=== PATIENT | male | born 1960 | race American Indian/Alaskan Native ===

== ENCOUNTER 2017-05-14 09:37 | Emergency (ER) | payer SELFPAY ==
[2017-05-14 09:55] VITALS: BP 121/88
[2017-05-14] MEDS ORDERED: MOTRIN PO ONE (09:58)
[2017-05-14] MEDS ORDERED: MOTRIN ONE (10:00)
[2017-05-14] MEDS ORDERED: PERCOCET 5/325 PO ONE (11:23)
[2017-05-14] MEDS ORDERED: DECADRON INTRAOCULA ONE (11:23)
--- NOTE | 2017-05-14 11:23 | Emergency Department Report ---
ED Extremity Problem HPI - General Chief complaint: Extremity Problem,Nontraumatic Stated complaint: LEGS AND FEET SWOLLEN,PAIN Time Seen by Provider: 05/14/17 10:18 Source: patient, family Mode of arrival: Wheelchair Limitations: No Limitations - History of Present Illness Initial comments: Patient he reported that he is having joint pain and swelling to both his feet and his right elbow is also complaining of lower back pain 2-3 months. Patient said he has a history of gout flare fo 1 week. All pain to is 10 out of 10 and achy and throbbing. He took [id number] pain medication but it didn't help him. Denies any redness or swelling to extremities. Denies any fever or chills. Denies any nausea or vomiting. Patient records reflect that he was on allopurinol in the past but he said he is not taking that medication at present. He denies any injuries. Patient said he has had previous back injury and he gets back pain from time to time. MD Complaint: extremity pain, joint swelling, joint paint Onset/Timin -: week(s) Location: upper extremity, bilateral lower extremity, elbow (right upper extremity at right elbow) History of Same: Yes -: No myalgia, Yes arthralgia, No associated dyspnea, No associated chest pain Severity scale (0 -10): 10 Quality: aching Consistency: intermittent Improves with: immobilization, rest Worsens with: weight bearing, walking, exertion, palpation Associated Symptoms: arthralgias. denies: chest pain, shortness of breath, fever, myalgias, rash - Related Data Previous Rx's Medication Instructions Recorded Last Taken Type Hydrocodone Bit/Acetaminophen 1 each PO BID PRN #20 tablet 05/05/13 Unknown Rx [Lortab 7.5-500 mg] Prednisone 40 mg PO QDAY #10 tablet 05/05/13 Unknown Rx Cyclobenzaprine HCl [FLEXERIL] 10 mg PO TID #12 tablet 07/07/13 Unknown Rx Cephalexin [Keflex] 500 mg PO Q8H #21 capsule 12/14/13 Unknown Rx Sulfamethoxazole/Trimethoprim 1 each PO Q12H #14 tablet 12/14/13 Unknown Rx [Bactrim Ds] oxyCODONE /ACETAMINOPHEN [Percocet 1 tab PO Q4-6H PRN #20 tablet 12/14/13 Unknown Rx 5/325 mg] Allopurinol [Zyloprim] 100 mg PO QDAY #30 tablet 02/25/14 Unknown Rx HYDROcodone/APAP 7.5-325 [[place] 1 each PO Q6HR PRN #20 tablet 04/29/14 Unknown Rx 7.5/325 mg] Indomethacin 50 mg PO Q8H #90 capsule 04/29/14 Unknown Rx Cyclobenzaprine [Flexeril] 10 mg PO TID PRN #30 tablet 08/02/15 Unknown Rx Meloxicam [Mobic] 15 mg PO DAILY #30 tablet 09/12/15 Unknown Rx traMADol [Ultram 50 MG tab] 50 mg PO Q4HR PRN #20 tablet 09/12/15 Unknown Rx Acetaminophen/Codeine [Tylenol 1 tab PO Q6H PRN #20 tab 10/16/15 Unknown Rx /Codeine # 3 tab] HYDROcodone/APAP 10-325 [[place] 1 each PO Q6HR PRN #14 tablet 05/14/17 Unknown Rx 10-325 mg TAB] Ibuprofen [Motrin 800 MG tab] 800 mg PO Q8HR PRN #15 tablet 05/14/17 Unknown Rx methylPREDNISolone [Medrol Dose 4 mg PO DAILY 6 Days 05/14/17 Unknown Rx Andrea] Allergies Allergy/AdvReac Type Severity Reaction Status Date / Time No Known Allergies Allergy Verified 09/12/15 15:42 ED Review of Systems ROS: Stated complaint: LEGS AND FEET SWOLLEN,PAIN Other details as noted in HPI Comment: All other systems reviewed and negative Constitutional: no symptoms reported Respiratory: no symptoms reported Cardiovascular: denies: chest pain, palpitations, dyspnea on exertion, edema, syncope, paroxysmal nocturnal dyspnea Gastrointestinal: denies: abdominal pain, nausea, vomiting Genitourinary: denies: urgency, dysuria, frequency, hematuria, discharge, testicular pain, testicular mass Musculoskeletal: back pain, joint swelling, arthralgia. denies: myalgia Skin: denies: rash, lesions Neurological: abnormal gait (due to lower back pain and pain is both feet). denies: headache, weakness, numbness, paresthesias, confusion, vertigo ED Past Medical Hx - Past Medical History Previous Medical History?: Yes Hx Arthritis: Yes (gout) Hx Headaches / Migraines: Yes Additional medical history: gout. OBESITY - Surgical History Past Surgical History?: No - Family History Family history: hypertension - Social History Smoking Status: Current Every Day Smoker Substance Use Type: None - Medications Home Medications: Home Medications Medication Instructions Recorded Confirmed Last Taken Type Hydrocodone Bit/Acetaminophen 1 each PO BID PRN #20 tablet 05/05/13 Unknown Rx [Lortab 7.5-500 mg] Prednisone 40 mg PO QDAY #10 tablet 05/05/13 Unknown Rx Cyclobenzaprine HCl [FLEXERIL] 10 mg PO TID #12 tablet 07/07/13 Unknown Rx Cephalexin [Keflex] 500 mg PO Q8H #21 capsule 12/14/13 Unknown Rx Sulfamethoxazole/Trimethoprim 1 each PO Q12H #14 tablet 12/14/13 Unknown Rx [Bactrim Ds] oxyCODONE /ACETAMINOPHEN [Percocet 1 tab PO Q4-6H PRN #20 tablet 12/14/13 Unknown Rx 5/325 mg] Allopurinol [Zyloprim] 100 mg PO QDAY #30 tablet 02/25/14 Unknown Rx HYDROcodone/APAP 7.5-325 [[place] 1 each PO Q6HR PRN #20 tablet 04/29/14 Unknown Rx 7.5/325 mg] Indomethacin 50 mg PO Q8H #90 capsule 04/29/14 Unknown Rx Cyclobenzaprine [Flexeril] 10 mg PO TID PRN #30 tablet 08/02/15 Unknown Rx Meloxicam [Mobic] 15 mg PO DAILY #30 tablet 09/12/15 Unknown Rx traMADol [Ultram 50 MG tab] 50 mg PO Q4HR PRN #20 tablet 09/12/15 Unknown Rx Acetaminophen/Codeine [Tylenol 1 tab PO Q6H PRN #20 tab 10/16/15 Unknown Rx /Codeine # 3 tab] HYDROcodone/APAP 10-325 [[place] 1 each PO Q6HR PRN #14 tablet 05/14/17 Unknown Rx 10-325 mg TAB] Ibuprofen [Motrin 800 MG tab] 800 mg PO Q8HR PRN #15 tablet 05/14/17 Unknown Rx methylPREDNISolone [Medrol Dose 4 mg PO DAILY 6 Days 05/14/17 Unknown Rx Andrea] ED Physical Exam - General Limitations: No Limitations General appearance: alert, in no apparent distress - Head Head exam: Present: atraumatic, normocephalic, normal inspection - Eye Eye exam: Present: normal appearance, PERRL, EOMI Pupils: Present: normal accommodation - ENT ENT exam: Present: normal exam, normal orophraynx, mucous membranes moist - Neck Neck exam: Present: normal inspection, lymphadenopathy. Absent: tenderness, meningismus, full ROM - Respiratory Respiratory exam: Present: normal lung sounds bilaterally. Absent: respiratory distress, wheezes, chest wall tenderness, accessory muscle use - Cardiovascular Cardiovascular Exam: Present: regular rate, normal rhythm, normal heart sounds. Absent: systolic murmur, diastolic murmur - GI/Abdominal GI/Abdominal exam: Present: soft, normal bowel sounds. Absent: distended, tenderness, guarding, rebound, rigid - Extremities Exam Extremities exam: Present: normal inspection, full ROM, tenderness (both feet with mild swelling and right elbow without any swelling), normal capillary refill, other (no clubbing, cyanosis. Positive swelling to both feet along great toe. Temperature to both feet and right elbow increase. No neurovascular compromise. +2 pulses to all extremities.). Absent: pedal edema , calf tenderness - Back Exam Back exam: Present: normal inspection, full ROM. Absent: tenderness, CVA tenderness (R), CVA tenderness (L), muscle spasm, paraspinal tenderness, vertebral tenderness, rash noted - Expanded Back Exam Expanded Back exam: Absent: saddle anesthesia Back exam: Negative Straight Leg Raising: Left, Right - Neurological Exam Neurological exam: Present: alert, oriented X3, abnormal gait (abnormal gait to bilateral lower extremity due to pain from gout. Patient able to ambulate in the room but he is limping), motor sensory deficit (decrease motor of function to both feet due to increased pain from gout. She would normal sensation in all extremities), reflexes normal - Expanded Neurological Exam Expanded Neurological exam: Absent: innattentive, memory loss-remote event, memory loss- recent event, ataxia, receptive aphasia, expressive aphasia, total aphasia, tremor, protecting the airway Patient oriented to: Present: person, place, time Speech: Present: fluid speech Cranial nerves: EOM's Intact: Normal, Gag Reflex: Normal, Tongue Deviation: Normal, Nystagmus: Normal, Facial Sensation: Normal Cerebellar function: Romberg: Normal Upper motor neuron: Pronator Drift: Normal, Sensory Extinction: Normal Sensory exam: Upper Extremity Light Touch: Normal, Upper Extremity Temperature: Normal, UE 2 Point Discrimination: Normal, Lower Extremity Light Touch: Normal, Lower Extremity Temperature: Normal, LE 2 Point Discrimination: Normal Motor strength exam: RUE: 5, LUE: 5, RLE: 4, LLE: 4 DTR: bicep (R): 2+, bicep (L): 2+, tricep (R): 2+, tricep (L): 2+, knee (R): 2+ , knee (L): 2+, ankle (R): 2+, ankle (L): 2+ Best Eye Response ([place]): (4) open spontaneously Best Motor Response ([place]): (6) obeys commands Best Verbal Response ([place]): (5) oriented Ashlee Total: 15 - Psychiatric Psychiatric exam: Present: normal affect, normal mood - Skin Skin exam: Present: warm, dry, intact, normal color. Absent: rash ED Course Vital Signs 05/14/17 09:52 Temperature 97.9 F Pulse Rate 99 H Respiratory 20 Rate Blood Pressure 121/88 O2 Sat by Pulse 97 Oximetry - Reevaluation(s) Reevaluation #1: 05/14/17 12:34 Given Motrin 800 mg by mouth in triage area which did not relieve his pain, he was given Decadron 10 mg IM and said 5/325 mg 2 tablet by mouth in emergency room 05/14/17 12:34 ED Medical Decision Making - Medical Decision Making ED course: Patient with acute gouty arthritis flare in multiple joints. He is also with acute exacerbation of chronic back pain. Patient was treated with Motrin 800 mg by mouth in triage,Decadron 10 mg IM and Percocet 5/325 2 tablets by mouth in emergency room. He had relief of his pain. Patient said he does not have a primary care physician so I informed him that he will need to follow up at [facility] for management of his chronic medical problems to include gout, arthritis, migraine. He's been here several times for management of pain. Discharged home a prescription for [place], Motrin and prednisone. He voiced undescended discharge instruction and treatment plan. Critical care attestation.: If time is entered above; I have spent that time in minutes in the direct care of this critically ill patient, excluding procedure time. ED Disposition Clinical Impression: Acute exacerbation of chronic low back pain, Arthralgia of multiple sites Gout of multiple sites Qualifiers: Gout etiology: unspecified cause Chronicity: unspecified Qualified Code(s): M10.9 - Gout, unspecified Disposition: DC-01 TO HOME OR SELFCARE Is pt being admited?: No Does the pt Need Aspirin: No Condition: Stable Instructions: Acute Gouty Arthritis (ED), Arthralgia (ED), Low Purine Diet (ED) Additional Instructions: Please follow up at [facility] for management of chronic medical problems Please follow up with Dr. Sheppard orthopedic, for chronic back pain Do not drive or operate heavy machinery while taking [place] as this medication will make you drowsy. Prescriptions: HYDROcodone/APAP 10-325 [[place] 10-325 mg TAB] 1 each PO Q6HR PRN #14 tablet PRN Reason: Pain Ibuprofen [Motrin 800 MG tab] 800 mg PO Q8HR PRN #15 tablet PRN Reason: pain methylPREDNISolone [Medrol Dose Andrea] 4 mg PO DAILY 6 Days Referrals: RODNEY SHEPPARD MD [Staff Physician] - 3-5 Days [facility] [place] [Outside] - 05/18/17 Forms: Work/School Release Form(ED), Accompanied Note
== END 2017-05-14 13:01 | disposition home or self-care (01) ==
LOC: ED 09:37
DX: M10.9 Gout, unspecified (principal); G89.29 Other chronic pain; M54.5 Low back pain; M19.90 Unspecified osteoarthritis, unspecified site; G43.909 Migraine, unspecified, not intractable, without status migrainosus; F17.210 Nicotine dependence, cigarettes, uncomplicated
CPT/HCPCS: 99282; J1100

== ENCOUNTER 2017-07-29 09:46 | Emergency (ER) | payer SELFPAY ==
[2017-07-29 11:20] VITALS: BP 144/81
[2017-07-29] MEDS ORDERED: ULTRAM PO ONE (14:54)
[2017-07-29] MEDS ORDERED: DELTASONE PO ONE (14:54)
--- NOTE | 2017-07-29 15:26 | Emergency Department Report ---
ED General Adult HPI - General Chief complaint: Extremity Injury, Lower Stated complaint: GOUT Time Seen by Provider: 07/29/17 14:37 Source: patient Mode of arrival: Ambulatory Limitations: No Limitations - History of Present Illness Initial comments: Patient a 56-year-old -[place] male who presents for gout exacerbation to bilateral great toes and left index finger patient states gout usually controlled by ibuprofen however he is out of ibuprofen for the past 2 weeks patient states no longer has a PCP as he can't afford patient denies fevers chills no nausea no vomiting no open sores or lesions no ulcers no history of diabetes patient remains ambulatory but with pain. Onset/Timin -: week(s) Location: upper extremity, lower extremity Radiation: non-radiation Severity scale (0 -10): 10 Quality: aching Consistency: constant Improves with: none Worsens with: movement, other (weight bearing ) Associated Symptoms: denies other symptoms Treatments Prior to Arrival: none - Related Data Previous Rx's Medication Instructions Recorded Last Taken Type Hydrocodone Bit/Acetaminophen 1 each PO BID PRN #20 tablet 05/05/13 Unknown Rx [Lortab 7.5-500 mg] Prednisone 40 mg PO QDAY #10 tablet 05/05/13 Unknown Rx Cyclobenzaprine HCl [FLEXERIL] 10 mg PO TID #12 tablet 07/07/13 Unknown Rx Cephalexin [Keflex] 500 mg PO Q8H #21 capsule 12/14/13 Unknown Rx Sulfamethoxazole/Trimethoprim 1 each PO Q12H #14 tablet 12/14/13 Unknown Rx [Bactrim Ds] oxyCODONE /ACETAMINOPHEN [Percocet 1 tab PO Q4-6H PRN #20 tablet 12/14/13 Unknown Rx 5/325 mg] Allopurinol [Zyloprim] 100 mg PO QDAY #30 tablet 02/25/14 Unknown Rx HYDROcodone/APAP 7.5-325 [[place] 1 each PO Q6HR PRN #20 tablet 04/29/14 Unknown Rx 7.5/325 mg] Indomethacin 50 mg PO Q8H #90 capsule 04/29/14 Unknown Rx Cyclobenzaprine [Flexeril] 10 mg PO TID PRN #30 tablet 08/02/15 Unknown Rx Meloxicam [Mobic] 15 mg PO DAILY #30 tablet 09/12/15 Unknown Rx traMADol [Ultram 50 MG tab] 50 mg PO Q4HR PRN #20 tablet 09/12/15 Unknown Rx Acetaminophen/Codeine [Tylenol 1 tab PO Q6H PRN #20 tab 10/16/15 Unknown Rx /Codeine # 3 tab] HYDROcodone/APAP 10-325 [[place] 1 each PO Q6HR PRN #14 tablet 05/14/17 Unknown Rx 10-325 mg TAB] Ibuprofen [Motrin 800 MG tab] 800 mg PO Q8HR PRN #15 tablet 05/14/17 Unknown Rx methylPREDNISolone [Medrol Dose 4 mg PO DAILY 6 Days tab 05/14/17 Unknown Rx Andrea] Ibuprofen 800 mg PO TID PRN #60 tablet 07/29/17 Unknown Rx predniSONE [Deltasone] 40 mg PO QDAY #10 tab 07/29/17 Unknown Rx Allergies Allergy/AdvReac Type Severity Reaction Status Date / Time No Known Allergies Allergy Verified 09/12/15 15:42 ED Review of Systems ROS: Stated complaint: GOUT Other details as noted in HPI Constitutional: denies: chills, fever Eyes: denies: eye pain, eye discharge, vision change ENT: denies: ear pain, throat pain Respiratory: denies: cough, shortness of breath, wheezing Cardiovascular: denies: chest pain, palpitations Endocrine: no symptoms reported Gastrointestinal: denies: abdominal pain, nausea, diarrhea Genitourinary: as per HPI Musculoskeletal: joint swelling, arthralgia. denies: back pain, myalgia Skin: denies: rash, lesions Neurological: denies: headache, weakness, paresthesias Psychiatric: denies: anxiety, depression Hematological/Lymphatic: denies: easy bleeding, easy bruising ED Past Medical Hx - Past Medical History Previous Medical History?: Yes Hx Arthritis: Yes (gout) Hx Headaches / Migraines: Yes Additional medical history: gout. OBESITY - Surgical History Past Surgical History?: No - Social History Smoking Status: Never Smoker Substance Use Type: Non Opiate Pain - Medications Home Medications: Home Medications Medication Instructions Recorded Confirmed Last Taken Type Hydrocodone Bit/Acetaminophen 1 each PO BID PRN #20 tablet 05/05/13 Unknown Rx [Lortab 7.5-500 mg] Prednisone 40 mg PO QDAY #10 tablet 05/05/13 Unknown Rx Cyclobenzaprine HCl [FLEXERIL] 10 mg PO TID #12 tablet 07/07/13 Unknown Rx Cephalexin [Keflex] 500 mg PO Q8H #21 capsule 12/14/13 Unknown Rx Sulfamethoxazole/Trimethoprim 1 each PO Q12H #14 tablet 12/14/13 Unknown Rx [Bactrim Ds] oxyCODONE /ACETAMINOPHEN [Percocet 1 tab PO Q4-6H PRN #20 tablet 12/14/13 Unknown Rx 5/325 mg] Allopurinol [Zyloprim] 100 mg PO QDAY #30 tablet 02/25/14 Unknown Rx HYDROcodone/APAP 7.5-325 [[place] 1 each PO Q6HR PRN #20 tablet 04/29/14 Unknown Rx 7.5/325 mg] Indomethacin 50 mg PO Q8H #90 capsule 04/29/14 Unknown Rx Cyclobenzaprine [Flexeril] 10 mg PO TID PRN #30 tablet 08/02/15 Unknown Rx Meloxicam [Mobic] 15 mg PO DAILY #30 tablet 09/12/15 Unknown Rx traMADol [Ultram 50 MG tab] 50 mg PO Q4HR PRN #20 tablet 09/12/15 Unknown Rx Acetaminophen/Codeine [Tylenol 1 tab PO Q6H PRN #20 tab 10/16/15 Unknown Rx /Codeine # 3 tab] HYDROcodone/APAP 10-325 [[place] 1 each PO Q6HR PRN #14 tablet 05/14/17 Unknown Rx 10-325 mg TAB] Ibuprofen [Motrin 800 MG tab] 800 mg PO Q8HR PRN #15 tablet 05/14/17 Unknown Rx methylPREDNISolone [Medrol Dose 4 mg PO DAILY 6 Days tab 05/14/17 Unknown Rx Andrea] Ibuprofen 800 mg PO TID PRN #60 tablet 07/29/17 Unknown Rx predniSONE [Deltasone] 40 mg PO QDAY #10 tab 07/29/17 Unknown Rx ED Physical Exam - General Limitations: No Limitations General appearance: alert, in no apparent distress - Head Head exam: Present: atraumatic, normocephalic - Eye Eye exam: Present: normal appearance, PERRL, EOMI Pupils: Present: normal accommodation - ENT ENT exam: Present: mucous membranes moist - Neck Neck exam: Present: normal inspection, full ROM. Absent: lymphadenopathy, thyromegaly - Respiratory Respiratory exam: Present: normal lung sounds bilaterally. Absent: respiratory distress, wheezes, rhonchi, chest wall tenderness - Cardiovascular Cardiovascular Exam: Present: regular rate, normal rhythm. Absent: systolic murmur, diastolic murmur, rubs, gallop - GI/Abdominal GI/Abdominal exam: Present: soft, normal bowel sounds. Absent: distended, tenderness, guarding, rebound, rigid, mass, bruit, pulsatile mass, hernia - Rectal Rectal exam: Present: deferred - Extremities Exam Extremities exam: Present: normal inspection, full ROM, tenderness (generalized great toe and left index finger pain ), normal capillary refill. Absent: pedal edema, joint swelling, calf tenderness - Expanded Upper Extremity Exam Left Hand Wrist exam: Present: normal inspection, full ROM, tenderness (left index finger 1st joint pain and swelling ), swelling, erythema. Absent: abrasion, laceration, ecchymosis, deformity, crepidus, dislocation, amputation, nail avulsion, subungual hematoma Neuro motor exam: Present: wrist extension intact, thumb opposition intact, thumb IP flexion intact, thumb adduction intact, fingers 2-5 abduction intact Neurosensory exam: Present: 2-point discrimination, radial nerve intact, ulnar nerve intact, median nerve intact Vascular: Present: normal capillary refill, radial pulse, brachial pulse, ulnar pulse. Absent: vascular compromise, Pallo, pulse deficit radial art, pulse deficit ulnar art, pulse deficit brachial art - Expanded Lower Extremity Exam Left Foot/Toe exam: Present: full ROM, tenderness, swelling, erythema (generalized pain swelling to great toe ). Absent: abrasion, laceration, ecchymosis, deformity, crepidus, dislocation, amputation, puncture wound, foreign body, calcaneal tenderness, tenderness at base of 5th metatarsal, nail avulsion, subungual hematoma Neuro vascular tendon exam: Present: no vascular compromise. Absent: pulse deficit, abnormal cap refill, motor deficit, tendon deficit, extremity cold to touch, pallor, abnormal 2-point discrimination, decreased fine/light touch, foot drop, peroneal nerve deficit, significant pain with passive ROM of distal joint Gait: Negative: observed and normal Right Foot/Toe exam: Present: full ROM, tenderness (right great toe pain and erythema swelling ), swelling, erythema. Absent: abrasion, laceration, ecchymosis, deformity, crepidus, dislocation, amputation, puncture wound, foreign body, calcaneal tenderness, tenderness at base of 5th metatarsal, nail avulsion, subungual hematoma Neuro vascular tendon exam: Present: motor deficit. Absent: no vascular compromise, pulse deficit, abnormal cap refill, sensory deficit, tendon deficit , extremity cold to touch, pallor, abnormal 2-point discrimination, decreased fine/light touch, foot drop, peroneal nerve deficit, significant pain with passive ROM of distal joint Gait: Negative: observed and normal - Back Exam Back exam: Present: normal inspection, full ROM. Absent: tenderness, CVA tenderness (R), CVA tenderness (L), muscle spasm, paraspinal tenderness, vertebral tenderness, rash noted ED Course Vital Signs 07/29/17 11:17 Temperature 98.2 F Pulse Rate 89 Respiratory 16 Rate Blood Pressure 144/81 O2 Sat by Pulse 95 Oximetry ED Medical Decision Making - Medical Decision Making Patient a 56-year-old -[place] male who presents for gout exacerbation to bilateral great toes and left index finger patient states gout usually controlled by ibuprofen however he is out of ibuprofen for the past 2 weeks patient states no longer has a PCP as he can't afford patient denies fevers chills no nausea no vomiting no open sores or lesions no ulcers no history of diabetes patient remains ambulatory but with pain. exam left index finger pain swelling erythema , bilat great toe pain swelling erythema warm to touch no open lesion pt is ambulatory gait is steady, pain is improved with steriods and nsaids. pain decreased to 2/10 at this time plan: dc to home instable condition with prednisone, ibuprofen pt will follow up with [facility] in 2-3 days. pt verbalized agreement and understanding of same. Critical care attestation.: If time is entered above; I have spent that time in minutes in the direct care of this critically ill patient, excluding procedure time. ED Disposition Clinical Impression: Gout attack Qualifiers: Gout site: foot Gout etiology: idiopathic Laterality: unspecified laterality Qualified Code(s): M10.079 - Idiopathic gout, unspecified ankle and foot Disposition: DC-01 TO HOME OR SELFCARE Is pt being admited?: No Does the pt Need Aspirin: No Condition: Good Instructions: Acute Gouty Arthritis (ED), Low Purine Diet (ED) Additional Instructions: follow up with [facility] in 2-3 days as directed Prescriptions: Ibuprofen 800 mg PO TID PRN #60 tablet PRN Reason: Pain , Severe (7-10) predniSONE [Deltasone] 40 mg PO QDAY #10 tab Referrals: PRIMARY CARE, [Referring] - 3-5 Days [facility] [Outside] - 3-[address] [facility] [place] [Outside] - 3-5 Days Forms: Work/School Release Form(ED) Time of Disposition: 15:45
== END 2017-07-29 15:58 | disposition home or self-care (01) ==
LOC: ED 09:46
DX: M10.9 Gout, unspecified (principal); M19.90 Unspecified osteoarthritis, unspecified site
CPT/HCPCS: 99282; J7512

== ENCOUNTER 2017-09-29 11:17 | Emergency (ER) | payer SELFPAY ==
[2017-09-29 11:25] VITALS: BP 145/90
[2017-09-29] MEDS ORDERED: MOTRIN PO ONE (12:55)
[2017-09-29] MEDS ORDERED: COLCRYS PO ONE (12:55)
[2017-09-29] MEDS ORDERED: ZOFRAN ODT PO ONE (12:55)
[2017-09-29] MEDS ORDERED: NORCO 7.5/325 PO ONE (12:55)
--- NOTE | 2017-09-29 13:00 | Emergency Department Report ---
ED Extremity Problem HPI - General Chief complaint: Pain General Stated complaint: SWOLLEN ARM/KNEE/FOOT Time Seen by Provider: 09/29/17 12:51 Source: patient Mode of arrival: Ambulatory Limitations: No Limitations - History of Present Illness Initial comments: Patient is a 56-year-old -[place] male who is presenting with joint pain. Patient states he has a history of gout and currently has pain in his right knee and left wrist and elbow. Also in the bilateral great toes he is beginning to have some discomfort as well. Patient states he's been having off and on symptoms for approximately 2 weeks. Patient is no longer on any of his gout medications. Patient denies any fever he does have some mild nausea with one episode of vomiting. Patient denies any injury and his pain is consistent with prior gout flareups. Patient states the pain is 8 out of 10 in severity. - Related Data Previous Rx's Medication Instructions Recorded Last Taken Type Hydrocodone Bit/Acetaminophen 1 each PO BID PRN #20 tablet 05/05/13 Unknown Rx [Lortab 7.5-500 mg] Prednisone 40 mg PO QDAY #10 tablet 05/05/13 Unknown Rx Cyclobenzaprine HCl [FLEXERIL] 10 mg PO TID #12 tablet 07/07/13 Unknown Rx Cephalexin [Keflex] 500 mg PO Q8H #21 capsule 12/14/13 Unknown Rx Sulfamethoxazole/Trimethoprim 1 each PO Q12H #14 tablet 12/14/13 Unknown Rx [Bactrim Ds] oxyCODONE /ACETAMINOPHEN [Percocet 1 tab PO Q4-6H PRN #20 tablet 12/14/13 Unknown Rx 5/325 mg] Allopurinol [Zyloprim] 100 mg PO QDAY #30 tablet 02/25/14 Unknown Rx Cyclobenzaprine [Flexeril] 10 mg PO TID PRN #30 tablet 08/02/15 Unknown Rx Meloxicam [Mobic] 15 mg PO DAILY #30 tablet 09/12/15 Unknown Rx traMADol [Ultram 50 MG tab] 50 mg PO Q4HR PRN #20 tablet 09/12/15 Unknown Rx Acetaminophen/Codeine [Tylenol 1 tab PO Q6H PRN #20 tab 10/16/15 Unknown Rx /Codeine # 3 tab] HYDROcodone/APAP 10-325 [[place] 1 each PO Q6HR PRN #14 tablet 05/14/17 Unknown Rx 10-325 mg TAB] Ibuprofen [Motrin 800 MG tab] 800 mg PO Q8HR PRN #15 tablet 05/14/17 Unknown Rx methylPREDNISolone [Medrol Dose 4 mg PO DAILY 6 Days tab 05/14/17 Unknown Rx Andrea] Ibuprofen 800 mg PO TID PRN #60 tablet 07/29/17 Unknown Rx Colchicine 0.6 mg PO DAILY #14 capsule 09/29/17 Unknown Rx HYDROcodone/APAP 7.5-325 [[place] 1 each PO Q6HR PRN #14 tablet 09/29/17 Unknown Rx 7.5-325 mg TAB] Indomethacin 50 mg PO Q8H #30 capsule 09/29/17 Unknown Rx predniSONE [Deltasone] 40 mg PO QDAY #5 tab 09/29/17 Unknown Rx Allergies Allergy/AdvReac Type Severity Reaction Status Date / Time No Known Allergies Allergy Verified 09/29/17 11:22 ED Review of Systems ROS: Stated complaint: SWOLLEN ARM/KNEE/FOOT Other details as noted in HPI Comment: All other systems reviewed and negative ED Past Medical Hx - Past Medical History Hx Arthritis: Yes (gout) Hx Headaches / Migraines: Yes Additional medical history: gout. OBESITY - Social History Smoking Status: Never Smoker Substance Use Type: Marijuana - Medications Home Medications: Home Medications Medication Instructions Recorded Confirmed Last Taken Type Hydrocodone Bit/Acetaminophen 1 each PO BID PRN #20 tablet 05/05/13 Unknown Rx [Lortab 7.5-500 mg] Prednisone 40 mg PO QDAY #10 tablet 05/05/13 Unknown Rx Cyclobenzaprine HCl [FLEXERIL] 10 mg PO TID #12 tablet 07/07/13 Unknown Rx Cephalexin [Keflex] 500 mg PO Q8H #21 capsule 12/14/13 Unknown Rx Sulfamethoxazole/Trimethoprim 1 each PO Q12H #14 tablet 12/14/13 Unknown Rx [Bactrim Ds] oxyCODONE /ACETAMINOPHEN [Percocet 1 tab PO Q4-6H PRN #20 tablet 12/14/13 Unknown Rx 5/325 mg] Allopurinol [Zyloprim] 100 mg PO QDAY #30 tablet 02/25/14 Unknown Rx Cyclobenzaprine [Flexeril] 10 mg PO TID PRN #30 tablet 08/02/15 Unknown Rx Meloxicam [Mobic] 15 mg PO DAILY #30 tablet 09/12/15 Unknown Rx traMADol [Ultram 50 MG tab] 50 mg PO Q4HR PRN #20 tablet 09/12/15 Unknown Rx Acetaminophen/Codeine [Tylenol 1 tab PO Q6H PRN #20 tab 10/16/15 Unknown Rx /Codeine # 3 tab] HYDROcodone/APAP 10-325 [[place] 1 each PO Q6HR PRN #14 tablet 05/14/17 Unknown Rx 10-325 mg TAB] Ibuprofen [Motrin 800 MG tab] 800 mg PO Q8HR PRN #15 tablet 05/14/17 Unknown Rx methylPREDNISolone [Medrol Dose 4 mg PO DAILY 6 Days tab 05/14/17 Unknown Rx Andrea] Ibuprofen 800 mg PO TID PRN #60 tablet 07/29/17 Unknown Rx Colchicine 0.6 mg PO DAILY #14 capsule 09/29/17 Unknown Rx HYDROcodone/APAP 7.5-325 [[place] 1 each PO Q6HR PRN #14 tablet 09/29/17 Unknown Rx 7.5-325 mg TAB] Indomethacin 50 mg PO Q8H #30 capsule 09/29/17 Unknown Rx predniSONE [Deltasone] 40 mg PO QDAY #5 tab 09/29/17 Unknown Rx ED Physical Exam - General Limitations: No Limitations General appearance: alert, in no apparent distress - Head Head exam: Present: atraumatic, normocephalic - Eye Eye exam: Present: normal appearance - ENT ENT exam: Present: mucous membranes moist - Neck Neck exam: Present: normal inspection - Respiratory Respiratory exam: Present: normal lung sounds bilaterally. Absent: respiratory distress - Cardiovascular Cardiovascular Exam: Present: regular rate, normal rhythm. Absent: systolic murmur, diastolic murmur, rubs, gallop - GI/Abdominal GI/Abdominal exam: Present: soft, normal bowel sounds - Rectal Rectal exam: Present: deferred - Extremities Exam Extremities exam: Present: tenderness, joint swelling (joint swelling to the right knee left wrist and left elbow does have full range of motion is ample tour) - Back Exam Back exam: Present: normal inspection - Neurological Exam Neurological exam: Present: alert, oriented X3 - Psychiatric Psychiatric exam: Present: normal affect, normal mood - Skin Skin exam: Present: warm, dry, intact, normal color. Absent: rash ED Course Vital Signs 09/29/17 11:22 Temperature 98.2 F Pulse Rate 94 H Respiratory 20 Rate Blood Pressure 145/90 O2 Sat by Pulse 98 Oximetry ED Medical Decision Making - Medical Decision Making She'll be started on colchicine and be given pain meds. Critical care attestation.: If time is entered above; I have spent that time in minutes in the direct care of this critically ill patient, excluding procedure time. ED Disposition Clinical Impression: Gout attack Qualifiers: Gout site: unspecified site Gout etiology: unspecified cause Qualified Code(s) : M10.9 - Gout, unspecified Disposition: TO HOME OR SELFCARE Is pt being admited?: No Does the pt Need Aspirin: No Condition: Stable Instructions: Acute Gouty Arthritis (ED) Prescriptions: Colchicine 0.6 mg PO DAILY #14 capsule HYDROcodone/APAP 7.5-325 [[place] 7.5-325 mg TAB] 1 each PO Q6HR PRN #14 tablet PRN Reason: Pain Indomethacin 50 mg PO Q8H #30 capsule predniSONE [Deltasone] 40 mg PO QDAY #5 tab Referrals: RODNEY CALDERON MD [Staff Physician] - 3-5 Days
== END 2017-09-29 13:35 | disposition home or self-care (01) ==
LOC: ED 11:17
DX: M10.9 Gout, unspecified (principal)
CPT/HCPCS: 99282; Q0162

== ENCOUNTER 2018-02-02 07:12 | Emergency (ER) | payer OTHER ==
[2018-02-02 07:38] VITALS: BP 136/92
[2018-02-02] MEDS ORDERED: TORADOL IM ONE (09:53)
--- NOTE | 2018-02-02 09:53 | Emergency Department Report ---
Upper Extremity - HPI Chief Complaint: Extremity Problem,Nontraumatic Stated Complaint: RT AND AND KNEE SWELLING Time Seen by Provider: 02/02/18 08:41 Upper Extremity: Right Shoulder, Right Forearm, Right Hand Occurred When: >5 Days (1 week) Mechanism: Unsure Severity: severe (05/05) Symptoms: Yes Pain with Movement (right shoulder, forearm and hand), Yes Limited Range of Movement (right shoulder), Yes Swelling (right hand), No Deformity, No Numbness, No Weakness, No Bruising/Ecchymosis, No Laceration or Abrasion Other History: This is a 57-year-old male patient was sent to the emergency room complaining of pain to right knee without any injury. Pain to right hand, shoulder and forearm without any injury. He said he has a history of gout with similar presentation but not to his hand or shoulder. Pain is 8 out of 10 and achy. Pain is worse with movement better with rest. He said he has been taking [id number] pain medication but it is not helping. Denies any numbness or tingling. Denies any injury. Denies any shortness of breath or chest pain. Denies any fever or chills. ED Review of Systems ROS: Stated complaint: RT AND AND KNEE SWELLING Other details as noted in HPI Constitutional: denies: chills, fever Eyes: denies: eye pain, eye discharge, vision change Respiratory: denies: cough, shortness of breath, SOB with exertion, SOB at rest , stridor, wheezing Cardiovascular: denies: chest pain, palpitations, edema, syncope Gastrointestinal: denies: abdominal pain, nausea Musculoskeletal: joint swelling, arthralgia. denies: back pain, myalgia Skin: denies: rash, lesions Neurological: denies: headache, weakness, numbness, paresthesias, abnormal gait , vertigo ED Past Medical Hx - Past Medical History Previous Medical History?: Yes Hx Arthritis: Yes (gout) Hx Headaches / Migraines: Yes Additional medical history: gout. OBESITY - Surgical History Past Surgical History?: No - Family History Family history: hypertension - Social History Smoking Status: Never Smoker Substance Use Type: Non Opiate Pain - Medications Home Medications: Home Medications Medication Instructions Recorded Confirmed Last Taken Type Hydrocodone Bit/Acetaminophen 1 each PO BID PRN #20 tablet 05/05/13 Unknown Rx [Lortab 7.5-500 mg] Prednisone 40 mg PO QDAY #10 tablet 05/05/13 Unknown Rx Cyclobenzaprine HCl [FLEXERIL] 10 mg PO TID #12 tablet 07/07/13 Unknown Rx Cephalexin [Keflex] 500 mg PO Q8H #21 capsule 12/14/13 Unknown Rx Sulfamethoxazole/Trimethoprim 1 each PO Q12H #14 tablet 12/14/13 Unknown Rx [Bactrim Ds] oxyCODONE /ACETAMINOPHEN [Percocet 1 tab PO Q4-6H PRN #20 tablet 12/14/13 Unknown Rx 5/325 mg] Allopurinol [Zyloprim] 100 mg PO QDAY #30 tablet 02/25/14 Unknown Rx Cyclobenzaprine [Flexeril] 10 mg PO TID PRN #30 tablet 08/02/15 Unknown Rx Meloxicam [Mobic] 15 mg PO DAILY #30 tablet 09/12/15 Unknown Rx traMADol [Ultram 50 MG tab] 50 mg PO Q4HR PRN #20 tablet 09/12/15 Unknown Rx HYDROcodone/APAP 10-325 [[place] 1 each PO Q6HR PRN #14 tablet 05/14/17 Unknown Rx 10-325 mg TAB] Ibuprofen [Motrin 800 MG tab] 800 mg PO Q8HR PRN #15 tablet 05/14/17 Unknown Rx Colchicine 0.6 mg PO DAILY #14 capsule 09/29/17 Unknown Rx HYDROcodone/APAP 7.5-325 [[place] 1 each PO Q6HR PRN #14 tablet 09/29/17 Unknown Rx 7.5-325 mg TAB] Indomethacin 50 mg PO Q8H #30 capsule 09/29/17 Unknown Rx predniSONE [Deltasone] 40 mg PO QDAY #5 tab 09/29/17 Unknown Rx Acetaminophen/Codeine [Tylenol 1 tab PO Q6H PRN #12 tab 02/02/18 Unknown Rx /Codeine # 3 tab] Ibuprofen 800 mg PO TID PRN #15 tablet 02/02/18 Unknown Rx methylPREDNISolone [Medrol Dose 4 mg PO DAILY 6 Days #1 pkg 02/02/18 Unknown Rx Andrea] Upper Extremity Exam - Exam General: Vital signs noted. No distress. Alert and acting appropriately. This is a 57-year-old male patient in no acute distress. Extremity: No clubbing, cyanosis or edema except. Distal pulses distal extremities and no neurovascular compromise. No joint effusion or crepitus swelling to right hand.. Patient able to flex and extend his knees without any difficulties. Head and Torso: No HEENT Abnormality, No Neck Tenderness, No Chest/Lungs Abnormality, No Abdominal Tenderness, No Back Tenderness Shoulder Exam: Yes Shoulder Tenderness (anterior shoulder, right), Yes Normal Range of Motion in Shoulder (but reports pain with movement, right shoulder), No Shoulder Deformity, No AC Joint Tenderness Arm Exam: Yes Arm/Humerus Tenderness (distal right), No Arm Deformity Elbow: Yes Normal Range of Motion in Elbow, No Elbow Tenderness, No Elbow Deformity Forearm: Yes Forearm Tenderness (distal), Yes Pain with Pronation, Yes Pain with Supination, No Forearm Deformity Wrist: Yes Normal ROM in Wrist, No Wrist Tenderness, No Wrist Deformity, No Snuffbox Tenderness, No Pain with Axial Thumb Compression Hand: Yes Hand Tenderness (right dorsal aspect of hand), Yes Normal ROM in Digit (s) ( and other extremities), No Hand Deformity (patient with swelling to right hand without erythema), No Digit Tenderness, No Digit(s) Deformity, No Tendon Dysfunction CMS Exam: Yes Normal Distal Pulses (+2 pulses radial and ulnar), Yes Normal Capillary Refill (patient good color, movement, sensation and temperature to bilateral upper extremities), Yes Normal Distal Sensation (no motor deficit), No Broken Skin ED Course Vital Signs 02/02/18 07:35 Temperature 97.6 F Pulse Rate 93 H Respiratory 18 Rate Blood Pressure 136/92 O2 Sat by Pulse 96 Oximetry - Reevaluation(s) Reevaluation #1: 02/02/18 10:26 Patient stable he received Toradol 60 mg by mouth for right hand and shoulder pain. Patient awaiting x-ray and ultrasound. Reevaluation #2: 02/02/18 14:05 Patient is stable he said his pain is better. ED Medical Decision Making - Lab Data Result diagrams: 02/02/18 11:30 02/02/18 11:30 Lab Results 02/02/18 02/02/18 02/02/18 Range/Units 11:30 11:30 11:30 WBC 9.1 (4.5-11.0) K/mm3 RBC 4.80 (3.65-5.03) M/mm3 Hgb 12.4 (11.8-15.2) gm/dl Hct 38.2 (35.5-45.6) % MCV 80 L (84-94) fl MCH 26 L (28-32) pg MCHC 33 (32-34) % RDW 16.9 H (13.2-15.2) % Plt Count 276 (140-440) K/mm3 PT 14.5 (12.2-14.9) Sec. INR 1.07 (0.87-1.13) APTT 32.1 (24.2-36.6) Sec. Sodium 140 (137-145) mmol/L Potassium 4.3 (3.6-5.0) mmol/L Chloride 101.2 (98-107) mmol/L Carbon Dioxide 25 (22-30) mmol/L Anion Gap 18 mmol/L BUN 14 (9-20) mg/dL Creatinine 0.8 (0.8-1.5) mg/dL Estimated GFR > 60 ml/min BUN/Creatinine Ratio 18 % Glucose 129 H (75-100) mg/dL Calcium 9.6 (8.4-10.2) mg/dL - Radiology Data Radiology results: report reviewed Patient had x-ray to right shoulder, right forearm and right hand which shows soft tissue swelling. This was dictated by radiologist and report reviewed by myself. No acute fracture or dislocation Patient: FARHAT MAURO JR MR#: [id number] : 1960 Acct:[id number] Age/Sex: 57 / M ADM Date: 02/02/18 Loc: ED Attending Dr: Ordering Physician: CHARLES FUENTES Date of Service: 02/02/18 Procedure(s): XR shoulder 2+V RT Accession Number(s): [id number] cc: CHARLES FUENTES Fluoro Time In Minutes: RIGHT SHOULDER: Injury, pain. Routine views demonstrate normal bony and soft tissue structures with normal joint alignment of the shoulder. IMPRESSION: Normal study. Right forearm: Injury, pain. There is mild swelling over the dorsum of the proximal forearm and distal humerus. No laceration or foreign body appreciated. There is no underlying fracture or joint injury. Impression: Soft tissue injury. Transcribed By: Adela Dictated By: RODNEY SON MD Electronically Authenticated By: RODNEY SON MD Signed Date/Time: 02/02/18 1253 DD/ 1251 TD/TT: 02/02/18 1253 Patient: FARHAT MAURO JR MR#: [id number] : 1960 Acct:[id number] Age/Sex: 57 / M ADM Date: 02/02/18 Loc: ED Attending Dr: Ordering Physician: CHARLES FUENTES Date of Service: 02/02/18 Procedure(s): XR hand 3+V RT Accession Number(s): [id number] cc: CHARLES FUENTES Fluoro Time In Minutes: Right hand: Pain, swelling. There is diffuse swelling of the hand most prominently along the dorsum of the wrist and hand. There is no foreign body or other soft tissue finding. The underlying bones and joints appear normal. Impressions: Nonspecific swelling. Transcribed By: Adela Dictated By: RODNEY SON MD Electronically Authenticated By: RODNEY SON MD Signed Date/Time: 02/02/18 1014 DD/ 1013 TD/TT: 02/02/18 1014 - Medical Decision Making ED course: This is a 57-year-old male presented to the emergency room complaining of right upper extremity pain with swelling to his right hand. Pain is from his right shoulder extending down to his right hand that started a week ago and getting worse. He reports that he has gout but he's never had therapeutic shoulder or hand. Pain is similar to gout pain. He is here to be evaluated. Patient does not have a primary care doctor Patient was seen and examined by myself and found to have soft tissue swelling per x-ray. He has no motor or sensory deficit. Range of motion is normal except that he has pain with range of motion to his hand and shoulder, right. X -ray of right shoulder, right forearm and right hand dictated by radiologist and reviewed by myself and shows soft tissue swelling without any fracture or dislocation. Ultrasound Doppler of right upper extremity preliminary report shows no DVT or SVT.. CBC and CMP is stable. PT/INR stable. Results discussed with patient and he voiced understanding. She given Toradol 60 mg IM for pain which helped his pain A/P 1: Soft tissue swelling right upper extremity-stable 2: Arthralgia multiple sites-better after Toradol 60 mg IM times one which helped his pain. Referral to orthopedist 3: Acute gouty arthritis-pain is controlled. We'll discharge home on steroids, Motrin and Medrol Dosepak Patient education the medication and diagnosis, low. Diet. Pt discharged home in stable condition, vital signs are stable and he is afebrile. Patient feeling better. Patient will be recommended to use [facility] to follow-up in 2-3 days. Patient instructed to follow -up with orthopedist in 3 days. Patient discharged home in stable condition with prescription for Motrin, Tylenol 3 and Medrol Dosepak. He was instructed to return to emergency room if condition worsens - Differential Diagnosis fracture, cellulitis, contusion, gout Critical care attestation.: If time is entered above; I have spent that time in minutes in the direct care of this critically ill patient, excluding procedure time. ED Disposition Clinical Impression: Arthralgia of multiple sites Gout attack Qualifiers: Gout site: multiple sites Gout etiology: unspecified cause Qualified Code(s): M10.9 - Gout, unspecified Disposition: TO HOME OR SELFCARE Is pt being admited?: No Does the pt Need Aspirin: No Condition: Stable Instructions: Acute Gouty Arthritis (ED), Arthralgia (ED), Knee Pain (ED), Knee Exercises (GEN), Low Purine Diet (ED) Additional Instructions: Please follow up with orthopedic doctor as instructed Follow-up with outside [facility] for management of chronic gout Take Tylenol [address] or operate heavy machinery while taking this medication as it causes drowsiness. This medication for severe pain Take Motrin and Medrol Dosepak as prescribed If Symptoms worsen, return to the emergency room Prescriptions: Acetaminophen/Codeine [Tylenol /Codeine # 3 tab] 1 tab PO Q6H PRN #12 tab PRN Reason: pain Ibuprofen 800 mg PO TID PRN #15 tablet PRN Reason: mild to moderate pain methylPREDNISolone [Medrol Dose Andrea] 4 mg PO DAILY 6 Days #1 pkg Referrals: PRIMARY CAREMD [Primary Care Provider] - 2-3 Days RODNEY CALDERON MD [Staff Physician] - 3-5 Days [facility] [Outside] - 2-3 Days Forms: Work/School Release Form(ED)
--- NOTE | 2018-02-02 10:36 | XRay Report ---
Right hand: Pain, swelling. There is diffuse swelling of the hand most prominently along the dorsum of the wrist and hand. There is no foreign body or other soft tissue finding. The underlying bones and joints appear normal. Impressions: Nonspecific swelling.
[2018-02-02 12:06] LABS: Hematocrit 38.2 % (35.5-45.6); Hemoglobin 12.4 gm/dl (11.8-15.2); Mean Corpuscular HGB Conc 33 % (32-34); Mean Corpuscular Volume 80 fl (84-94); Platelet Count 276 K/mm3 (140-440); Red Cell Distribution Width 16.9 % (13.2-15.2)
[2018-02-02 12:16] LABS: Mean Corpuscular Hemoglobin 26 pg (28-32)
[2018-02-02 12:17] LABS: INR 1.07 (0.87-1.13)
[2018-02-02 12:18] LABS: Partial Thromboplastin Time 32.1 Sec. (24.2-36.6)
[2018-02-02 12:22] LABS: BUN/Creatinine Ratio 18; Blood Urea Nitrogen 14 mg/dL (9-20); Calcium 9.6 mg/dL (8.4-10.2); Hemolysis Index 42
--- NOTE | 2018-02-02 13:16 | XRay Report ---
RIGHT SHOULDER: Injury, pain. Routine views demonstrate normal bony and soft tissue structures with normal joint alignment of the shoulder. IMPRESSION: Normal study. Right forearm: Injury, pain. There is mild swelling over the dorsum of the proximal forearm and distal humerus. No laceration or foreign body appreciated. There is no underlying fracture or joint injury. Impression: Soft tissue injury.
--- NOTE | 2018-02-03 16:42 | Vascular Lab Report ---
RIGHT UPPER EXTREMITY VENOUS DUPLEX: REASON FOR EXAM: Pain and swelling of the right upper extremity COMMENTS ON THE RIGHT: All arm veins visualized are freely compressible without evidence of internal echogenicity. The subclavian and internal jugular veins are free of thrombus. Flow is spontaneous and phasic throughout. COMMENTS ON THE LEFT: A limited study of the jugular and subclavian veins shows no evidence of thrombus. IMPRESSION: No evidence of acute or chronic deep venous thrombosis in the right upper extremity.
== END 2018-02-02 14:40 | disposition home or self-care (01) ==
LOC: ED 07:12
DX: M10.9 Gout, unspecified (principal); M79.641 Pain in right hand; G43.909 Migraine, unspecified, not intractable, without status migrainosus; Z79.899 Other long term (current) drug therapy
CPT/HCPCS: 36415; 73030; 73090; 73130; 80048; 85027; 85610; 85730; 93971; 96372; 99284; J1885

== ENCOUNTER 2018-02-12 19:35 | Emergency (ER) | payer SELFPAY | END 2018-02-12 19:57 | LOC: ED 19:35 | DX: M79.641 Pain in right hand (principal); R22.31 Localized swelling, mass and lump, right upper limb; Z53.21 Procedure and treatment not carried out due to patient leaving prior to being seen by health care provider ==

== ENCOUNTER 2018-02-23 11:14 | Emergency (ER) | payer SELFPAY ==
[2018-02-23] MEDS ORDERED: DECADRON IM ONE (12:13)
[2018-02-23] MEDS ORDERED: TYLENOL #3 PO ONE (12:13)
--- NOTE | 2018-02-23 12:19 | Emergency Department Report ---
ED Upper Extremity Inj HPI - General Chief Complaint: Extremity Injury, Upper Stated Complaint: SWELLING OF THE RIGHT ARM Time Seen by Provider: 02/23/18 12:09 Source: patient Mode of arrival: Ambulatory Limitations: No Limitations - History of Present Illness Initial Comments: This is a 57-year-old male nontoxic, well nourished in appearance, no acute signs of distress presents to the ED with c/o of acute on chronic intermittent right hand, elbow and shoulder pain with swelling 2 week. Patient stated stated was treated with steroids for last visit and symptoms decreased slightly but never resolved. Patient denies worsening of symptoms. Patient denies any other trauma. Patient denies any numbness, tingling, fever, chills, nausea, vomiting, chest pain, shortness of breath, headache, stiff neck. Patient stated has decreased range of motion due to pain and swelling. Patient denies any allergies. PMH includes gout. Patient stated that symptoms are similar to gout attack. MD Complaint: Injury to:: right, arm, elbow, hand -: week(s) (2) Other Extremity Injury: Wrist: Right, Shoulder: Right Place: home Severity scale (0 -10): 8 Improves With: immobilization Worsens With: movement of extremity Associated Symptoms: denies: weakness, numbness, neck pain, suspects foreign body, nausea/vomiting, heard/felt popping sensat - Related Data Previous Rx's Medication Instructions Recorded Last Taken Type Hydrocodone Bit/Acetaminophen 1 each PO BID PRN #20 tablet 05/05/13 Unknown Rx [Lortab 7.5-500 mg] Prednisone 40 mg PO QDAY #10 tablet 05/05/13 Unknown Rx Cyclobenzaprine HCl [FLEXERIL] 10 mg PO TID #12 tablet 07/07/13 Unknown Rx Cephalexin [Keflex] 500 mg PO Q8H #21 capsule 12/14/13 Unknown Rx Sulfamethoxazole/Trimethoprim 1 each PO Q12H #14 tablet 12/14/13 Unknown Rx [Bactrim Ds] oxyCODONE /ACETAMINOPHEN [Percocet 1 tab PO Q4-6H PRN #20 tablet 12/14/13 Unknown Rx 5/325 mg] Allopurinol [Zyloprim] 100 mg PO QDAY #30 tablet 02/25/14 Unknown Rx Cyclobenzaprine [Flexeril] 10 mg PO TID PRN #30 tablet 08/02/15 Unknown Rx Meloxicam [Mobic] 15 mg PO DAILY #30 tablet 09/12/15 Unknown Rx traMADol [Ultram 50 MG tab] 50 mg PO Q4HR PRN #20 tablet 09/12/15 Unknown Rx HYDROcodone/APAP 10-325 [[place] 1 each PO Q6HR PRN #14 tablet 05/14/17 Unknown Rx 10-325 mg TAB] Ibuprofen [Motrin 800 MG tab] 800 mg PO Q8HR PRN #15 tablet 05/14/17 Unknown Rx Colchicine 0.6 mg PO DAILY #14 capsule 09/29/17 Unknown Rx HYDROcodone/APAP 7.5-325 [[place] 1 each PO Q6HR PRN #14 tablet 09/29/17 Unknown Rx 7.5-325 mg TAB] Indomethacin 50 mg PO Q8H #30 capsule 09/29/17 Unknown Rx predniSONE [Deltasone] 40 mg PO QDAY #5 tab 09/29/17 Unknown Rx Acetaminophen/Codeine [Tylenol 1 tab PO Q6H PRN #12 tab 02/02/18 Unknown Rx /Codeine # 3 tab] Ibuprofen 800 mg PO TID PRN #15 tablet 02/02/18 Unknown Rx methylPREDNISolone [Medrol Dose 4 mg PO DAILY 6 Days #1 pkg 02/02/18 Unknown Rx Andrea] Acetaminophen/Codeine [Tylenol 1 tab PO Q6H PRN #12 tab 02/23/18 Unknown Rx /Codeine # 3 tab] Colchicine 0.6 mg PO DAILY #14 capsule 02/23/18 Unknown Rx Ibuprofen [Motrin] 600 mg PO Q8H PRN #30 tablet 02/23/18 Unknown Rx Prednisone [predniSONE 10 mg 10 mg PO .TAPER #1 tab.ds.pk 02/23/18 Unknown Rx (6-Day Pack, 21 Tabs)] Allergies Allergy/AdvReac Type Severity Reaction Status Date / Time No Known Allergies Allergy Verified 09/29/17 11:22 ED Review of Systems ROS: Stated complaint: SWELLING OF THE RIGHT ARM Other details as noted in HPI Constitutional: denies: chills, fever Eyes: denies: eye pain, eye discharge, vision change ENT: denies: ear pain, throat pain Respiratory: denies: cough, shortness of breath, wheezing Cardiovascular: denies: chest pain, palpitations Endocrine: no symptoms reported Gastrointestinal: denies: abdominal pain, nausea, diarrhea Genitourinary: denies: urgency, dysuria Musculoskeletal: joint swelling, arthralgia. denies: back pain Skin: denies: rash, lesions Neurological: denies: headache, weakness, paresthesias Psychiatric: denies: anxiety, depression Hematological/Lymphatic: denies: easy bleeding, easy bruising ED Past Medical Hx - Past Medical History Hx Arthritis: Yes (gout) Hx Headaches / Migraines: Yes Additional medical history: gout. OBESITY - Social History Smoking Status: Never Smoker Substance Use Type: None - Medications Home Medications: Home Medications Medication Instructions Recorded Confirmed Last Taken Type Hydrocodone Bit/Acetaminophen 1 each PO BID PRN #20 tablet 05/05/13 Unknown Rx [Lortab 7.5-500 mg] Prednisone 40 mg PO QDAY #10 tablet 05/05/13 Unknown Rx Cyclobenzaprine HCl [FLEXERIL] 10 mg PO TID #12 tablet 07/07/13 Unknown Rx Cephalexin [Keflex] 500 mg PO Q8H #21 capsule 12/14/13 Unknown Rx Sulfamethoxazole/Trimethoprim 1 each PO Q12H #14 tablet 12/14/13 Unknown Rx [Bactrim Ds] oxyCODONE /ACETAMINOPHEN [Percocet 1 tab PO Q4-6H PRN #20 tablet 12/14/13 Unknown Rx 5/325 mg] Allopurinol [Zyloprim] 100 mg PO QDAY #30 tablet 02/25/14 Unknown Rx Cyclobenzaprine [Flexeril] 10 mg PO TID PRN #30 tablet 08/02/15 Unknown Rx Meloxicam [Mobic] 15 mg PO DAILY #30 tablet 09/12/15 Unknown Rx traMADol [Ultram 50 MG tab] 50 mg PO Q4HR PRN #20 tablet 09/12/15 Unknown Rx HYDROcodone/APAP 10-325 [[place] 1 each PO Q6HR PRN #14 tablet 05/14/17 Unknown Rx 10-325 mg TAB] Ibuprofen [Motrin 800 MG tab] 800 mg PO Q8HR PRN #15 tablet 05/14/17 Unknown Rx Colchicine 0.6 mg PO DAILY #14 capsule 09/29/17 Unknown Rx HYDROcodone/APAP 7.5-325 [[place] 1 each PO Q6HR PRN #14 tablet 09/29/17 Unknown Rx 7.5-325 mg TAB] Indomethacin 50 mg PO Q8H #30 capsule 09/29/17 Unknown Rx predniSONE [Deltasone] 40 mg PO QDAY #5 tab 09/29/17 Unknown Rx Acetaminophen/Codeine [Tylenol 1 tab PO Q6H PRN #12 tab 02/02/18 Unknown Rx /Codeine # 3 tab] Ibuprofen 800 mg PO TID PRN #15 tablet 02/02/18 Unknown Rx methylPREDNISolone [Medrol Dose 4 mg PO DAILY 6 Days #1 pkg 02/02/18 Unknown Rx Andrea] Acetaminophen/Codeine [Tylenol 1 tab PO Q6H PRN #12 tab 02/23/18 Unknown Rx /Codeine # 3 tab] Colchicine 0.6 mg PO DAILY #14 capsule 02/23/18 Unknown Rx Ibuprofen [Motrin] 600 mg PO Q8H PRN #30 tablet 02/23/18 Unknown Rx Prednisone [predniSONE 10 mg 10 mg PO .TAPER #1 tab.ds.pk 02/23/18 Unknown Rx (6-Day Pack, 21 Tabs)] ED Physical Exam - General Limitations: No Limitations General appearance: alert, in no apparent distress - Head Head exam: Present: atraumatic, normocephalic - Eye Eye exam: Present: normal appearance Pupils: Present: normal accommodation - ENT ENT exam: Present: normal exam, mucous membranes moist - Neck Neck exam: Present: normal inspection, full ROM. Absent: tenderness, meningismus, lymphadenopathy - Respiratory Respiratory exam: Present: normal lung sounds bilaterally. Absent: respiratory distress, wheezes, rales, rhonchi, stridor, chest wall tenderness, accessory muscle use, decreased breath sounds, prolonged expiratory - Cardiovascular Cardiovascular Exam: Present: regular rate, normal rhythm, normal heart sounds. Absent: irregular rhythm, systolic murmur, diastolic murmur, rubs, gallop - GI/Abdominal GI/Abdominal exam: Present: soft, normal bowel sounds - Rectal Rectal exam: Present: deferred - Extremities Exam Extremities exam: Present: normal inspection, full ROM, tenderness, normal capillary refill, joint swelling - Expanded Upper Extremity Exam Right General: Present: normal inspection Shoulder Exam: Present: normal inspection, full ROM, tenderness. Absent: swelling, abrasion, laceration, ecchymosis, deformity, crepidus, dislocation, erythema, tenderness over AC joint Upper Arm exam: Present: full ROM. Absent: tenderness, swelling, abrasion, laceration, ecchymosis, deformity, crepidus, dislocation, erythema Elbow exam: Present: normal inspection, full ROM, tenderness, swelling. Absent : abrasion, laceration, ecchymosis, deformity, crepidus, dislocation, erythema, effusion, pain w/ pronation/supination, tenderness over radial head Forearm Wrist exam: Present: normal inspection, full ROM. Absent: tenderness, swelling, abrasion, laceration, ecchymosis, deformity, crepidus, dislocation, erythema, tenderness over anatomical snuff box, pain with axial thumb loading Hand Wrist exam: Present: normal inspection, full ROM, tenderness, swelling. Absent: abrasion, laceration, ecchymosis, deformity, crepidus, dislocation, erythema, amputation, nail avulsion, subungual hematoma Neuro motor exam: Present: wrist extension intact, thumb opposition intact, thumb IP flexion intact, thumb adduction intact, fingers 2-5 abduction intact Neurosensory exam: Present: 2-point discrimination, radial nerve intact, ulnar nerve intact, median nerve intact Vascular: Present: vascular compromise, normal capillary refill, radial pulse, brachial pulse, ulnar pulse - Back Exam Back exam: Present: normal inspection, full ROM - Neurological Exam Neurological exam: Present: alert, oriented X3, normal gait - Psychiatric Psychiatric exam: Present: normal affect, normal mood - Skin Skin exam: Present: warm, dry, intact, normal color. Absent: rash ED Course Vital Signs 02/23/18 02/23/18 11:18 12:25 Temperature 98.1 F Pulse Rate 102 H Respiratory 18 18 Rate Blood Pressure 151/95 O2 Sat by Pulse 98 Oximetry - Reevaluation(s) Reevaluation #1: 02/23/18 13:17 Patient is speaking in full sentences with no signs of distress noted. - Consultations Consultation #1: 02/23/18 13:31 Patient has been consulted with Dr. Vaughn about patient history, physical exam , and labs and examined and screened patient and agrees to ED plan of care and discharge plan of care. ED Medical Decision Making - Lab Data Result diagrams: 02/23/18 12:41 02/23/18 12:41 - Medical Decision Making This is a 57-year-old male that presents with gout flare up. Patient is stable and was examined by me and Dr. Vaughn. Upon exam, there is no joint redness or signs of cellulitits noted. Labs within normal limits. Patient receveid Decadron and will be discharged with colchicine, prednisone and Motrin. She was educated on gout flareup and diet. Patient was instructed to Follow-up with a primary care doctor in 3-5 days or if symptoms worsen and continue return to emergency room as soon as possible. At time of discharge, the patient does not seem toxic or ill in appearance. No acute signs of distress noted. Patient agrees to discharge treatment plan of care. No further questions noted by the patient. Critical care attestation.: If time is entered above; I have spent that time in minutes in the direct care of this critically ill patient, excluding procedure time. ED Disposition Clinical Impression: Gout flare Qualifiers: Gout site: unspecified site Gout etiology: unspecified cause Qualified Code(s) : M10.9 - Gout, unspecified Disposition: - TO HOME OR SELFCARE Is pt being admited?: No Does the pt Need Aspirin: No Condition: Stable Instructions: Acetaminophen/Codeine (By mouth), Acute Gouty Arthritis (ED) Additional Instructions: Follow-up with a primary care doctor in 3-5 days or if symptoms worsen and continue return to emergency room as soon as possible. Do not operate any machinery while taking Tylenol with codeine as this may cause drowsiness. Prescriptions: Acetaminophen/Codeine [Tylenol /Codeine # 3 tab] 1 tab PO Q6H PRN #12 tab PRN Reason: Pain , Severe (7-10) Colchicine 0.6 mg PO DAILY #14 capsule Ibuprofen [Motrin] 600 mg PO Q8H PRN #30 tablet PRN Reason: Pain Prednisone [predniSONE 10 mg (6-Day Pack, 21 Tabs)] 10 mg PO .TAPER #1 tab.ds.pk Referrals: PRIMARY CARE, [Primary Care Provider] - 3-5 Days KAVON BELLE MD [Staff Physician] - 3-5 Days [facility] [Outside] - [facility] - [facility]5 Days Forms: Work/School Release Form(ED)
[2018-02-23 13:03] LABS: Basophils # (Auto) 0.1 K/mm3 (0.0-0.1); Basophils % (Auto) 0.8 % (0.0-1.8); Eosinophils # (Auto) 0.1 K/mm3 (0.0-0.4); Eosinophils % (Auto) 1.1 % (0.0-4.3); Hematocrit 38.4 % (35.5-45.6); Hemoglobin 12.5 gm/dl (11.8-15.2); Lymphocytes # (Auto) 2.4 K/mm3 (1.2-5.4); Lymphocytes % (Auto) 20.3 % (13.4-35.0); Mean Corpuscular HGB Conc 33 % (32-34); Mean Corpuscular Hemoglobin 26 pg (28-32); Mean Corpuscular Volume 80 fl (84-94); Monocytes # (Auto) 1.1 K/mm3 (0.0-0.8); Monocytes % (Auto) 9.6 % (0.0-7.3); Platelet Count 288 K/mm3 (140-440); Red Blood Count 4.82 M/mm3 (3.65-5.03); Red Cell Distribution Width 16.6 % (13.2-15.2)
[2018-02-23 13:24] LABS: BUN/Creatinine Ratio 19; Blood Urea Nitrogen 13 mg/dL (9-20); Calcium 9.2 mg/dL (8.4-10.2); Hemolysis Index 58; Uric Acid 9.7 mg/dL (3.5-7.6)
[2018-02-23 13:50] VITALS: BP 150/90
== END 2018-02-23 13:49 | disposition home or self-care (01) ==
LOC: ED 11:14
DX: M10.9 Gout, unspecified (principal); M19.90 Unspecified osteoarthritis, unspecified site; G43.909 Migraine, unspecified, not intractable, without status migrainosus
CPT/HCPCS: 36415; 80048; 82140; 84550; 85025; 96372; 99283; J1100

== ENCOUNTER 2018-04-13 09:59 | Emergency (ER) | payer SELFPAY ==
[2018-04-13] MEDS ORDERED: LASIX PO ONE (13:17)
--- NOTE | 2018-04-13 13:20 | Emergency Department Report ---
Blank Doc - Documentation Documentation: Patient is a 57-year-old [place] male with a past medical history of hypertension and gout. Patient was seen here several months ago for gouty arthritis in the right hand patient states the swelling has not gotten better. Patient states he just has feels a tight sensation in his hand extending up into his shoulder. Patient also has some bilateral lower leg swelling that he feels is normal for him although on focused physical exam patient does have some pitting edema there is 2+. Patient states the symptom that made him come to the emergency department today was shortness of breath while laying flat last night. Patient denies any chest pain or exertional shortness of breath. Patient stated he just couldn't lay flat. Patient denies any cough, congestion and fevers or chills. Also on focused physical exam patient does have some very mild faint rails in bilateral bases. Patient will have laboratory studies done including a BNP and a uric acid. Patient will undergo chest x-ray as well and the patient will get 40 of Lasix to give her some of the excess fluid patient will be reassessed.
--- NOTE | 2018-04-13 14:03 | XRay Report ---
ROUTINE CHEST, TWO VIEWS: HISTORY: Dyspnea. Mild cardiomegaly and pulmonary venous congestion are identified. No evidence for consolidation, large pleural effusion or pneumothorax. The thoracic cage is grossly intact. IMPRESSION: Cardiomegaly and pulmonary venous congestion but no CHF.
[2018-04-13 14:17] LABS: Basophils % (Auto) 0.5 % (0.0-1.8); Eosinophils # (Auto) 0.2 K/mm3 (0.0-0.4); Eosinophils % (Auto) 1.7 % (0.0-4.3); Hematocrit 37.7 % (35.5-45.6); Hemoglobin 12.2 gm/dl (11.8-15.2); Lymphocytes # (Auto) 2.9 K/mm3 (1.2-5.4); Lymphocytes % (Auto) 30.7 % (13.4-35.0); Mean Corpuscular HGB Conc 32 % (32-34); Mean Corpuscular Volume 79 fl (84-94); Monocytes # (Auto) 0.8 K/mm3 (0.0-0.8); Monocytes % (Auto) 8.9 % (0.0-7.3); Platelet Count 227 K/mm3 (140-440); Red Blood Count 4.79 M/mm3 (3.65-5.03); Red Cell Distribution Width 15.8 % (13.2-15.2)
[2018-04-13 14:18] LABS: Mean Corpuscular Hemoglobin 26 pg (28-32)
[2018-04-13 14:35] LABS: BUN/Creatinine Ratio 18; Blood Urea Nitrogen 14 mg/dL (9-20); Calcium 9.3 mg/dL (8.4-10.2); Hemolysis Index 6
--- NOTE | 2018-04-13 14:58 | Emergency Department Report ---
ED General Adult HPI - General Chief complaint: Extremity Injury, Upper Stated complaint: (R) ARM/SHOULDER SWOLLEN/JEFE Time Seen by Provider: 04/13/18 12:58 Source: patient Mode of arrival: Ambulatory Limitations: No Limitations - History of Present Illness Initial comments: This is a 57-year-old -[place] male who presents with right hand and shoulder pain for 3 months. Past medical history hypertension and gout. Patient states he is unable to be and the right elbow and there is some numbness and tingling. He also complains of shortness of breath while laying flat with attempt sleep last night. Patient reports tight sensation to right shoulder extending to hand. There is some swelling to bilateral lower extremity which is normal for patient. Patient denies chest pain, cough, shortness of breath on exertion, congestion, and fevers or chills. -: Last night Location: upper extremity (right shoulder extending to the hand) Radiation: non-radiation Severity scale (0 -10): 7 Quality: aching Consistency: constant Improves with: none Worsens with: none Associated Symptoms: denies other symptoms Treatments Prior to Arrival: none - Related Data Previous Rx's Medication Instructions Recorded Last Taken Type Hydrocodone Bit/Acetaminophen 1 each PO BID PRN #20 tablet 05/05/13 Unknown Rx [Lortab 7.5-500 mg] Prednisone 40 mg PO QDAY #10 tablet 05/05/13 Unknown Rx Cyclobenzaprine HCl [FLEXERIL] 10 mg PO TID #12 tablet 07/07/13 Unknown Rx Sulfamethoxazole/Trimethoprim 1 each PO Q12H #14 tablet 12/14/13 Unknown Rx [Bactrim Ds] cephALEXin [Keflex] 500 mg PO Q8H #21 capsule 12/14/13 Unknown Rx oxyCODONE /ACETAMINOPHEN [Percocet 1 tab PO Q4-6H PRN #20 tablet 12/14/13 Unknown Rx 5/325 mg] Allopurinol [Zyloprim] 100 mg PO QDAY #30 tablet 02/25/14 Unknown Rx Cyclobenzaprine [Flexeril] 10 mg PO TID PRN #30 tablet 08/02/15 Unknown Rx Meloxicam [Mobic] 15 mg PO DAILY #30 tablet 09/12/15 Unknown Rx traMADol [Ultram 50 MG tab] 50 mg PO Q4HR PRN #20 tablet 09/12/15 Unknown Rx HYDROcodone/APAP 10-325 [[place] 1 each PO Q6HR PRN #14 tablet 05/14/17 Unknown Rx 10-325 mg TAB] Ibuprofen [Motrin 800 MG tab] 800 mg PO Q8HR PRN #15 tablet 05/14/17 Unknown Rx Colchicine 0.6 mg PO DAILY #14 capsule 09/29/17 Unknown Rx HYDROcodone/APAP 7.5-325 [[place] 1 each PO Q6HR PRN #14 tablet 09/29/17 Unknown Rx 7.5-325 mg TAB] Indomethacin 50 mg PO Q8H #30 capsule 09/29/17 Unknown Rx predniSONE [Deltasone] 40 mg PO QDAY #5 tab 09/29/17 Unknown Rx Acetaminophen/Codeine [Tylenol 1 tab PO Q6H PRN #12 tab 02/02/18 Unknown Rx /Codeine # 3 tab] Ibuprofen 800 mg PO TID PRN #15 tablet 02/02/18 Unknown Rx methylPREDNISolone [Medrol Dose 4 mg PO DAILY 6 Days #1 pkg 02/02/18 Unknown Rx Andrea] Acetaminophen/Codeine [Tylenol 1 tab PO Q6H PRN #12 tab 02/23/18 Unknown Rx /Codeine # 3 tab] Colchicine 0.6 mg PO DAILY #14 capsule 02/23/18 Unknown Rx Ibuprofen [Motrin] 600 mg PO Q8H PRN #30 tablet 02/23/18 Unknown Rx Prednisone [predniSONE 10 mg 10 mg PO .TAPER #1 tab.ds.pk 02/23/18 Unknown Rx (6-Day Pack, 21 Tabs)] Furosemide [Lasix] 20 mg PO QDAY #7 tablet 04/13/18 Unknown Rx Indomethacin 50 mg PO Q8H #15 capsule 04/13/18 Unknown Rx Prednisone [predniSONE 10 mg 10 mg PO .TAPER #1 tab.ds.pk 04/13/18 Unknown Rx (6-Day Pack, 21 Tabs)] Allergies Allergy/AdvReac Type Severity Reaction Status Date / Time No Known Allergies Allergy Verified 04/13/18 10:20 ED Review of Systems ROS: Stated complaint: (R) ARM/SHOULDER SWOLLEN/JEFE Other details as noted in HPI Constitutional: no symptoms reported Respiratory: denies: cough, shortness of breath, wheezing Cardiovascular: edema (bilateral lower extremity). denies: chest pain, palpitations Gastrointestinal: denies: abdominal pain, nausea, diarrhea Musculoskeletal: joint swelling (right hand), arthralgia (right shoulder pain radiating to right hand). denies: back pain Skin: denies: rash, lesions Neurological: denies: headache, weakness, paresthesias Psychiatric: denies: anxiety, depression ED Past Medical Hx - Past Medical History Previous Medical History?: No Hx Arthritis: Yes (gout) Hx Headaches / Migraines: Yes Additional medical history: gout. OBESITY - Social History Smoking Status: Never Smoker Substance Use Type: None - Medications Home Medications: Home Medications Medication Instructions Recorded Confirmed Last Taken Type Hydrocodone Bit/Acetaminophen 1 each PO BID PRN #20 tablet 05/05/13 Unknown Rx [Lortab 7.5-500 mg] Prednisone 40 mg PO QDAY #10 tablet 05/05/13 Unknown Rx Cyclobenzaprine HCl [FLEXERIL] 10 mg PO TID #12 tablet 07/07/13 Unknown Rx Sulfamethoxazole/Trimethoprim 1 each PO Q12H #14 tablet 12/14/13 Unknown Rx [Bactrim Ds] cephALEXin [Keflex] 500 mg PO Q8H #21 capsule 12/14/13 Unknown Rx oxyCODONE /ACETAMINOPHEN [Percocet 1 tab PO Q4-6H PRN #20 tablet 12/14/13 Unknown Rx 5/325 mg] Allopurinol [Zyloprim] 100 mg PO QDAY #30 tablet 02/25/14 Unknown Rx Cyclobenzaprine [Flexeril] 10 mg PO TID PRN #30 tablet 08/02/15 Unknown Rx Meloxicam [Mobic] 15 mg PO DAILY #30 tablet 09/12/15 Unknown Rx traMADol [Ultram 50 MG tab] 50 mg PO Q4HR PRN #20 tablet 09/12/15 Unknown Rx HYDROcodone/APAP 10-325 [[place] 1 each PO Q6HR PRN #14 tablet 05/14/17 Unknown Rx 10-325 mg TAB] Ibuprofen [Motrin 800 MG tab] 800 mg PO Q8HR PRN #15 tablet 05/14/17 Unknown Rx Colchicine 0.6 mg PO DAILY #14 capsule 09/29/17 Unknown Rx HYDROcodone/APAP 7.5-325 [[place] 1 each PO Q6HR PRN #14 tablet 09/29/17 Unknown Rx 7.5-325 mg TAB] Indomethacin 50 mg PO Q8H #30 capsule 09/29/17 Unknown Rx predniSONE [Deltasone] 40 mg PO QDAY #5 tab 09/29/17 Unknown Rx Acetaminophen/Codeine [Tylenol 1 tab PO Q6H PRN #12 tab 02/02/18 Unknown Rx /Codeine # 3 tab] Ibuprofen 800 mg PO TID PRN #15 tablet 02/02/18 Unknown Rx methylPREDNISolone [Medrol Dose 4 mg PO DAILY 6 Days #1 pkg 02/02/18 Unknown Rx Andrea] Acetaminophen/Codeine [Tylenol 1 tab PO Q6H PRN #12 tab 02/23/18 Unknown Rx /Codeine # 3 tab] Colchicine 0.6 mg PO DAILY #14 capsule 02/23/18 Unknown Rx Ibuprofen [Motrin] 600 mg PO Q8H PRN #30 tablet 02/23/18 Unknown Rx Prednisone [predniSONE 10 mg 10 mg PO .TAPER #1 tab.ds.pk 02/23/18 Unknown Rx (6-Day Pack, 21 Tabs)] Furosemide [Lasix] 20 mg PO QDAY #7 tablet 04/13/18 Unknown Rx Indomethacin 50 mg PO Q8H #15 capsule 04/13/18 Unknown Rx Prednisone [predniSONE 10 mg 10 mg PO .TAPER #1 tab.ds.pk 04/13/18 Unknown Rx (6-Day Pack, 21 Tabs)] ED Physical Exam - General Limitations: No Limitations General appearance: alert, in no apparent distress, obese - Respiratory Respiratory exam: Present: normal lung sounds bilaterally. Absent: respiratory distress - Cardiovascular Cardiovascular Exam: Present: regular rate, normal rhythm. Absent: systolic murmur, diastolic murmur, rubs, gallop - GI/Abdominal GI/Abdominal exam: Present: soft, normal bowel sounds - Expanded Upper Extremity Exam Right Shoulder Exam: Present: normal inspection, full ROM Upper Arm exam: Present: normal inspection, full ROM Elbow exam: Present: tenderness (tenderness over olecranon w/o swelling), crepidus, pain w/ pronation/supination. Absent: full ROM (painful limited ROM) , swelling, abrasion, laceration, ecchymosis, deformity, dislocation, erythema, effusion, tenderness over radial head Forearm Wrist exam: Present: normal inspection, full ROM Hand Wrist exam: Present: normal inspection, full ROM Neuro motor exam: Present: wrist extension intact, thumb opposition intact, thumb IP flexion intact, thumb adduction intact, fingers 2-5 abduction intact Neurosensory exam: Present: radial nerve intact, ulnar nerve intact, median nerve intact Vascular: Present: normal capillary refill, radial pulse (+2) - Neurological Exam Neurological exam: Present: alert, oriented X3 - Psychiatric Psychiatric exam: Present: normal affect, normal mood - Skin Skin exam: Present: warm, dry, intact, normal color. Absent: rash ED Course Vital Signs 04/13/18 04/13/18 10:20 15:34 Temperature 98.5 F Pulse Rate 104 H 80 Respiratory 20 18 Rate Blood Pressure 173/102 Blood Pressure 145/103 [Left] O2 Sat by Pulse 97 Oximetry ED Medical Decision Making - Lab Data Result diagrams: 04/13/18 14:02 04/13/18 14:02 Lab Results 04/13/18 04/13/18 Range/Units 14:02 14:02 WBC 9.4 (4.5-11.0) K/mm3 RBC 4.79 (3.65-5.03) M/mm3 Hgb 12.2 (11.8-15.2) gm/dl Hct 37.7 (35.5-45.6) % MCV 79 L (84-94) fl MCH 26 L (28-32) pg MCHC 32 (32-34) % RDW 15.8 H (13.2-15.2) % Plt Count 227 (140-440) K/mm3 Lymph % (Auto) 30.7 (13.4-35.0) % [place] % (Auto) 8.9 H (0.0-7.3) % Eos % (Auto) 1.7 (0.0-4.3) % Baso % (Auto) 0.5 (0.0-1.8) % Lymph # 2.9 (1.2-5.4) K/mm3 [place] # 0.8 (0.0-0.8) K/mm3 Eos # 0.2 (0.0-0.4) K/mm3 Baso # 0.0 (0.0-0.1) K/mm3 Seg Neutrophils % 58.2 (40.0-70.0) % Seg Neutrophils # 5.5 (1.8-7.7) K/mm3 Sodium 140 (137-145) mmol/L Potassium 3.6 (3.6-5.0) mmol/L Chloride 105.0 (98-107) mmol/L Carbon Dioxide 22 (22-30) mmol/L Anion Gap 17 mmol/L BUN 14 (9-20) mg/dL Creatinine 0.8 (0.8-1.5) mg/dL Estimated GFR > 60 ml/min BUN/Creatinine Ratio 18 % Glucose 119 H (75-100) mg/dL Uric Acid 10.1 H (3.5-7.6) mg/dL Calcium 9.3 (8.4-10.2) mg/dL NT-Pro-B Natriuret Pep 1812 H (0-900) pg/mL - Radiology Data Radiology results: report reviewed, image reviewed ROUTINE CHEST, TWO VIEWS: HISTORY: Dyspnea. Mild cardiomegaly and pulmonary venous congestion are identified. No evidence for consolidation, large pleural effusion or pneumothorax. The thoracic cage is grossly intact. IMPRESSION: Cardiomegaly and pulmonary venous congestion but no CHF. Transcribed By: TTR Dictated By: AMA MCGUIRE JR, MD Electronically Authenticated By: AMA MCGUIRE JR, MD Signed Date/Time: 04/13/18 1402 - Medical Decision Making Patient is stable and was examined by me and Dr. Vaughn. PMH of HTN and gout. Patient given lasix 40 mg po once in ER. Blood pressure elevated and BLE edema on arrival. Labs obtained and chest x-ray. BNP 1812 and uric acid 10.1. Chest x-ray dictated by radiologist and report reviewed by myself. Cardiomegaly and pulmonary venous congestion but no CHF. Blood Pressure trending down, patient is asymptomatic. Pedal edema improved on reevaluation and patient reports feeling better. Start prednisone taper, indomethacin, and Lasix. Follow up with PCP. Referral to cardiology. Discussed plan with patient and agreed to plan. No further questions noted by the patient. Discharged home in stable condition. Follow up with PCP in 1 week. Critical care attestation.: If time is entered above; I have spent that time in minutes in the direct care of this critically ill patient, excluding procedure time. ED Disposition Clinical Impression: Swelling of right hand, Mild peripheral edema, Pulmonary venous congestion, Cardiomegaly, Asymptomatic hypertension Gout attack Qualifiers: Gout site: hand Gout etiology: idiopathic Laterality: right Qualified Code(s): M10.041 - Idiopathic gout, right hand Disposition: DC-01 TO HOME OR SELFCARE Is pt being admited?: No Does the pt Need Aspirin: No Condition: Stable Instructions: Hypertension (ED), Acute Gouty Arthritis (ED), Low Purine Diet ( ED) Additional Instructions: Follow-up with cardiology from referrals for continued care. Follow-up with primary care provider in 2-3 days. Prescriptions: Furosemide [Lasix] 20 mg PO QDAY #7 tablet Indomethacin 50 mg PO Q8H #15 capsule Prednisone [predniSONE 10 mg (6-Day Pack, 21 Tabs)] 10 mg PO .TAPER #1 tab.ds.pk Referrals: BEBETO GONSALEZ MD [Staff Physician] - 3-5 Days [facility] [Outside] - 3-5 Days [facility] [Outside] - 3-5 Days [facility] [Outside] - 3-5 Days Forms: Work/School Release Form(ED) Time of Disposition: 15:57 Print Language: BOLIVIAN
[2018-04-13 15:01] LABS: Uric Acid 10.1 mg/dL (3.5-7.6)
[2018-04-13 15:36] VITALS: BP 145/103
== END 2018-04-13 16:10 | disposition home or self-care (01) ==
LOC: ED 09:59
DX: M10.041 Idiopathic gout, right hand (principal); R60.9 Edema, unspecified; R09.89 Other specified symptoms and signs involving the circulatory and respiratory systems; I10 Essential (primary) hypertension; I87.8 Other specified disorders of veins; G43.909 Migraine, unspecified, not intractable, without status migrainosus; Z79.899 Other long term (current) drug therapy
CPT/HCPCS: 36415; 71046; 80048; 83880; 84550; 85025

== ENCOUNTER 2018-11-03 02:08 | Inpatient (IN) | payer SELFPAY ==
[2018-11-03] MEDS ORDERED: ASPIRIN PO ONE (02:25)
[2018-11-03 03:08] LABS: INR 1.21 (0.87-1.13)
[2018-11-03 03:10] LABS: Basophils # (Auto) 0.2 K/mm3 (0.0-0.1); Basophils % (Auto) 1.5 % (0.0-1.8); Eosinophils # (Auto) 0.2 K/mm3 (0.0-0.4); Eosinophils % (Auto) 1.4 % (0.0-4.3); Hematocrit 39.7 % (35.5-45.6); Hemoglobin 12.6 gm/dl (11.8-15.2); Lymphocytes % (Auto) 29.1 % (13.4-35.0); Mean Corpuscular HGB Conc 32 % (32-34); Mean Corpuscular Volume 83 fl (84-94); Monocytes # (Auto) 1.2 K/mm3 (0.0-0.8); Platelet Count 292 K/mm3 (140-440); Red Blood Count 4.77 M/mm3 (3.65-5.03); Red Cell Distribution Width 16.9 % (13.2-15.2)
[2018-11-03 03:15] LABS: BUN/Creatinine Ratio 22; Blood Urea Nitrogen 26 mg/dL (9-20); Calcium 9.5 mg/dL (8.4-10.2); Hemolysis Index 16
[2018-11-03 03:23] LABS: Free T4 (Free Thyroxine) 1.3 ng/dL (0.76-1.46)
[2018-11-03] MEDS ORDERED: ZOFRAN IV ONE ×2 (03:26→04:13)
[2018-11-03] MEDS ORDERED: NACL 0.9% 1000 ML 1,000 ML IV ONE (03:26)
--- NOTE | 2018-11-03 03:29 | XRay Report ---
PROCEDURE: XR CHEST 1V AP TECHNIQUE: Single radiograph of the chest obtained. HISTORY: Chest Pain COMPARISONS: 04/13/2018. FINDINGS: Heart is enlarged. No focal consolidation or effusion visualized. No pneumothorax visualized. IMPRESSION: Cardiomegaly.. This document is electronically signed by Dario Gusman MD., November 03 2018 03:27:22 AM ET
--- NOTE | 2018-11-03 03:56 | Emergency Department Report ---
ED Chest Pain HPI - General Chief Complaint: Chest Pain Stated Complaint: CHEST PAINS Time Seen by Provider: 11/03/18 02:36 Source: patient, old records reviewed Mode of arrival: Ambulatory Limitations: No Limitations - History of Present Illness Initial Comments: 57-year-old with a past medical history arthritis and obesity presents to Hospital with complaints of chest pain and shortness of breath for the past 2 days. He states that he was at [facility] 2 weeks ago with similar symptoms and was discharged after ER evaluation. He also states he had a cardiac cath performed at [facility] in June. Patient states that he was told his heart does not pump right but other than that he does not seem to know the details of his cardiac diagnoses in the past. He also does not have his current medications. He place of sharp sternum and right-sided chest pain that is constant, stabbing, worse with palpation and deep inspiration. Co mplains of worsening dyspnea and exertion and dyspnea while lying supine. He also states he's been having nausea, vomiting, and diarrhea for several days of persistent ER tachycardic. He denies history of PE/DVT or recent travel history. Patient states that he was told if he is not tender me that he may have cancer in his lower back. I will attempt to obtain medical records from [facility] Severity scale (0 -10): 8 - Related Data Previous Rx's Medication Instructions Recorded Last Taken Type Hydrocodone Bit/Acetaminophen 1 each PO BID PRN #20 tablet 05/05/13 Unknown Rx [Lortab 7.5-500 mg] Prednisone 40 mg PO QDAY #10 tablet 05/05/13 Unknown Rx Cyclobenzaprine HCl [FLEXERIL] 10 mg PO TID #12 tablet 07/07/13 Unknown Rx Sulfamethoxazole/Trimethoprim 1 each PO Q12H #14 tablet 12/14/13 Unknown Rx [Bactrim Ds] cephALEXin [Keflex] 500 mg PO Q8H #21 capsule 12/14/13 Unknown Rx oxyCODONE /ACETAMINOPHEN [Percocet 1 tab PO Q4-6H PRN #20 tablet 12/14/13 Unknown Rx 5/325 mg] Allopurinol [Zyloprim] 100 mg PO QDAY #30 tablet 02/25/14 Unknown Rx Cyclobenzaprine [Flexeril] 10 mg PO TID PRN #30 tablet 08/02/15 Unknown Rx Meloxicam [Mobic] 15 mg PO DAILY #30 tablet 09/12/15 Unknown Rx traMADol [Ultram 50 MG tab] 50 mg PO Q4HR PRN #20 tablet 09/12/15 Unknown Rx HYDROcodone/APAP 10-325 [[place] 1 each PO Q6HR PRN #14 tablet 05/14/17 Unknown Rx 10-325 mg TAB] Ibuprofen [Motrin 800 MG tab] 800 mg PO Q8HR PRN #15 tablet 05/14/17 Unknown Rx Colchicine 0.6 mg PO DAILY #14 capsule 09/29/17 Unknown Rx HYDROcodone/APAP 7.5-325 [[place] 1 each PO Q6HR PRN #14 tablet 09/29/17 Unknown Rx 7.5-325 mg TAB] Indomethacin 50 mg PO Q8H #30 capsule 09/29/17 Unknown Rx predniSONE [Deltasone] 40 mg PO QDAY #5 tab 09/29/17 Unknown Rx Acetaminophen/Codeine [Tylenol 1 tab PO Q6H PRN #12 tab 02/02/18 Unknown Rx /Codeine # 3 tab] Ibuprofen 800 mg PO TID PRN #15 tablet 02/02/18 Unknown Rx methylPREDNISolone [Medrol Dose 4 mg PO DAILY 6 Days #1 pkg 02/02/18 Unknown Rx Andrea] Acetaminophen/Codeine [Tylenol 1 tab PO Q6H PRN #12 tab 02/23/18 Unknown Rx /Codeine # 3 tab] Colchicine 0.6 mg PO DAILY #14 capsule 02/23/18 Unknown Rx Ibuprofen [Motrin] 600 mg PO Q8H PRN #30 tablet 02/23/18 Unknown Rx Prednisone [predniSONE 10 mg 10 mg PO .TAPER #1 tab.ds.pk 02/23/18 Unknown Rx (6-Day Pack, 21 Tabs)] Furosemide [Lasix] 20 mg PO QDAY #7 tablet 04/13/18 Unknown Rx Indomethacin 50 mg PO Q8H #15 capsule 04/13/18 Unknown Rx Prednisone [predniSONE 10 mg 10 mg PO .TAPER #1 tab.ds.pk 04/13/18 Unknown Rx (6-Day Pack, 21 Tabs)] Allergies Allergy/AdvReac Type Severity Reaction Status Date / Time No Known Allergies Allergy Verified 04/13/18 10:20 Heart Score - HEART Score History: Slightly suspicious EKG: Non-specific Age: 45-65 Risk factors: > 3 risk factors or hx of atherosclerotic disease Troponin: < normal limit HEART Score: 4 ED Review of Systems ROS: Stated complaint: CHEST PAINS Other details as noted in HPI Comment: All other systems reviewed and negative ED Past Medical Hx - Past Medical History Previous Medical History?: Yes Hx Congestive Heart Failure: Yes (dilated cardiomyopathy) Hx Arthritis: Yes (gout) Hx Headaches / Migraines: Yes Additional medical history: gout. OBESITY - Surgical History Past Surgical History?: No - Social History Smoking Status: Never Smoker Substance Use Type: None - Medications Home Medications: Home Medications Medication Instructions Recorded Confirmed Last Taken Type Hydrocodone Bit/Acetaminophen 1 each PO BID PRN #20 tablet 05/05/13 Unknown Rx [Lortab 7.5-500 mg] Prednisone 40 mg PO QDAY #10 tablet 05/05/13 Unknown Rx Cyclobenzaprine HCl [FLEXERIL] 10 mg PO TID #12 tablet 07/07/13 Unknown Rx Sulfamethoxazole/Trimethoprim 1 each PO Q12H #14 tablet 12/14/13 Unknown Rx [Bactrim Ds] cephALEXin [Keflex] 500 mg PO Q8H #21 capsule 12/14/13 Unknown Rx oxyCODONE /ACETAMINOPHEN [Percocet 1 tab PO Q4-6H PRN #20 tablet 12/14/13 Unknown Rx 5/325 mg] Allopurinol [Zyloprim] 100 mg PO QDAY #30 tablet 02/25/14 Unknown Rx Cyclobenzaprine [Flexeril] 10 mg PO TID PRN #30 tablet 08/02/15 Unknown Rx Meloxicam [Mobic] 15 mg PO DAILY #30 tablet 09/12/15 Unknown Rx traMADol [Ultram 50 MG tab] 50 mg PO Q4HR PRN #20 tablet 09/12/15 Unknown Rx HYDROcodone/APAP 10-325 [[place] 1 each PO Q6HR PRN #14 tablet 05/14/17 Unknown Rx 10-325 mg TAB] Ibuprofen [Motrin 800 MG tab] 800 mg PO Q8HR PRN #15 tablet 05/14/17 Unknown Rx Colchicine 0.6 mg PO DAILY #14 capsule 09/29/17 Unknown Rx HYDROcodone/APAP 7.5-325 [[place] 1 each PO Q6HR PRN #14 tablet 09/29/17 Unknown Rx 7.5-325 mg TAB] Indomethacin 50 mg PO Q8H #30 capsule 09/29/17 Unknown Rx predniSONE [Deltasone] 40 mg PO QDAY #5 tab 09/29/17 Unknown Rx Acetaminophen/Codeine [Tylenol 1 tab PO Q6H PRN #12 tab 02/02/18 Unknown Rx /Codeine # 3 tab] Ibuprofen 800 mg PO TID PRN #15 tablet 02/02/18 Unknown Rx methylPREDNISolone [Medrol Dose 4 mg PO DAILY 6 Days #1 pkg 02/02/18 Unknown Rx Andrea] Acetaminophen/Codeine [Tylenol 1 tab PO Q6H PRN #12 tab 02/23/18 Unknown Rx /Codeine # 3 tab] Colchicine 0.6 mg PO DAILY #14 capsule 02/23/18 Unknown Rx Ibuprofen [Motrin] 600 mg PO Q8H PRN #30 tablet 02/23/18 Unknown Rx Prednisone [predniSONE 10 mg 10 mg PO .TAPER #1 tab.ds.pk 02/23/18 Unknown Rx (6-Day Pack, 21 Tabs)] Furosemide [Lasix] 20 mg PO QDAY #7 tablet 04/13/18 Unknown Rx Indomethacin 50 mg PO Q8H #15 capsule 04/13/18 Unknown Rx Prednisone [predniSONE 10 mg 10 mg PO .TAPER #1 tab.ds.pk 04/13/18 Unknown Rx (6-Day Pack, 21 Tabs)] ED Physical Exam - General Limitations: No Limitations - Other Other exam information: General: No limitations, patient is alert in no acute distress Head exam: Atraumatic, normocephalic Eyes exam: Normal appearance ENT: Moist mucous membrane, normal oropharynx Neck exam: Normal inspection, full range of motion, no meningismus nontender Respiratory exam: Clear to auscultation bilateral, no wheezes, rales, crackles Cardiovascular: Tachycardic regular rhythm Abdomen: Soft, nondistended, and nontender, with normal bowel sounds, no rebound, or guarding Extremity: Full range of motion normal inspection no deformity, no Tenderness or leg edema Back: Normal Inspection, full range of motion, no tenderness Neurologic: Alert, oriented x3, cranial nerves intact, no motor or sensory deficit Psychiatric: normal affect, normal mood Skin: Warm, dry, intact ED Course Vital Signs 04/10/19 04/10/19 04/10/19 02:23 02:25 03:02 Temperature 98.7 F Pulse Rate 68 132 H 134 H Respiratory 16 16 Rate Blood Pressure 127/88 Blood Pressure 139/103 127/88 [Left] O2 Sat by Pulse 100 99 Oximetry 11/03/18 05:15 Temperature Pulse Rate 140 H Respiratory Rate Blood Pressure 140/104 Blood Pressure [Left] O2 Sat by Pulse Oximetry - Reevaluation(s) Reevaluation #1: 11/03/18 05:04 At this time His medical records obtained from [facility]. Patient had a CT angio chest on 10/15/2018 that was negative for pulmonary embolus but he did have pulmonary edema and signs of heart failure. Patient had a lumbar spine x-ray that showed multilevel anterior vertebral disc disease. Normal vertebral body height. Patient had a cardiac cath April 2018 with normal coronary arteries and had an echocardiogram that showed LV severe dilated and EF less than 15% 08/27/2018 CT lumbar spine without contrast no acute findings. At L5 vertebral body shows sclerosis and a large portion of the body this could be prominent chronic disease from "modic" changes metastatic lesion cannot be excluded medical records placed on chart for review Reevaluation #2: 11/03/18 05:31 no improvement after cardizem 20mg repeat 25mg dose ordered drip pending ivf discontinued given poor ef based on med records - Consultations Consultation #1: 11/03/18 05:[address] shook who agrees ekg is aflutter with rvr HAZEL score - Hazel Score Age > 65: (0) No Aspirin use within the Past 7 Days: (0) No 3 or more CAD Risk Factors: (1) Yes 2 or more Angina events in past 24 hrs: (0) No Known CAD with more than 50% Stenosis: (0) No Elevated Cardiac Markers: (0) No ST Deviation Greater than 0.5mm: (0) No HAZEL Score: 1 ED Medical Decision Making - Lab Data Result diagrams: 11/03/18 02:29 11/03/18 02:29 Lab Results 11/03/18 11/03/18 11/03/18 Range/Units 02:29 02:29 02:37 WBC 13.8 H (4.5-11.0) K/mm3 RBC 4.77 (3.65-5.03) M/mm3 Hgb 12.6 (11.8-15.2) gm/dl Hct 39.7 (35.5-45.6) % MCV 83 L (84-94) fl MCH 26 L (28-32) pg MCHC 32 (32-34) % RDW 16.9 H (13.2-15.2) % Plt Count 292 (140-440) K/mm3 Lymph % (Auto) 29.1 (13.4-35.0) % [place] % (Auto) 9.0 H (0.0-7.3) % Eos % (Auto) 1.4 (0.0-4.3) % Baso % (Auto) 1.5 (0.0-1.8) % Lymph # 4.0 (1.2-5.4) K/mm3 [place] # 1.2 H (0.0-0.8) K/mm3 Eos # 0.2 (0.0-0.4) K/mm3 Baso # 0.2 H (0.0-0.1) K/mm3 Seg Neutrophils % 59.0 (40.0-70.0) % Seg Neutrophils # 8.1 H (1.8-7.7) K/mm3 PT 16.1 H (12.2-14.9) Sec. INR 1.21 H (0.87-1.13) D-Dimer 1464.46 H (0-234) ng/mlDDU Sodium 137 (137-145) mmol/L Potassium 4.6 (3.6-5.0) mmol/L Chloride 103.5 (98-107) mmol/L Carbon Dioxide 17 L (22-30) mmol/L Anion Gap 21 mmol/L BUN 26 H (9-20) mg/dL Creatinine 1.2 (0.8-1.5) mg/dL Estimated GFR > 60 ml/min BUN/Creatinine Ratio 22 % Glucose 177 H (75-100) mg/dL Calcium 9.5 (8.4-10.2) mg/dL Troponin T < 0.010 (0.00-0.029) ng/mL TSH (0.270-4.200) mlU/mL Free T4 (0.76-1.46) ng/dL 11/03/18 Range/Units 02:39 WBC (4.5-11.0) K/mm3 RBC (3.65-5.03) M/mm3 Hgb (11.8-15.2) gm/dl Hct (35.5-45.6) % MCV (84-94) fl MCH (28-32) pg MCHC (32-34) % RDW (13.2-15.2) % Plt Count (140-440) K/mm3 Lymph % (Auto) (13.4-35.0) % [place] % (Auto) (0.0-7.3) % Eos % (Auto) (0.0-4.3) % Baso % (Auto) (0.0-1.8) % Lymph # (1.2-5.4) K/mm3 [place] # (0.0-0.8) K/mm3 Eos # (0.0-0.4) K/mm3 Baso # (0.0-0.1) K/mm3 Seg Neutrophils % (40.0-70.0) % Seg Neutrophils # (1.8-7.7) K/mm3 PT (12.2-14.9) Sec. INR (0.87-1.13) D-Dimer (0-234) ng/mlDDU Sodium (137-145) mmol/L Potassium (3.6-5.0) mmol/L Chloride (98-107) mmol/L Carbon Dioxide (22-30) mmol/L Anion Gap mmol/L BUN (9-20) mg/dL Creatinine (0.8-1.5) mg/dL Estimated GFR ml/min BUN/Creatinine Ratio % Glucose (75-100) mg/dL Calcium (8.4-10.2) mg/dL Troponin T (0.00-0.029) ng/mL TSH 2.950 (0.270-4.200) mlU/mL Free T4 1.30 (0.76-1.46) ng/dL - EKG Data -: EKG Interpreted by Me (ectopic atrial tacy rate 133) EKG shows normal: axis (qrs 15), QRS complexes (qrs 90), ST-T waves (inf lat st depression) - Radiology Data Radiology results: report reviewed PROCEDURE: XR CHEST 1V AP TECHNIQUE: Single radiograph of the chest obtained. HISTORY: Chest Pain COMPARISONS: 04/13/2018. FINDINGS: Heart is enlarged. No focal consolidation or effusion visualized. No pneumothorax visualized. IMPRESSION: Cardiomegaly.. PROCEDURE: CT ANGIO CHEST TECHNIQUE: A CT angiogram was performed following the intravenous injection of iodinated contrast. Rotational, sagittal, and coronal MIP reconstructions were reviewed. HISTORY: sob, cp, elevated ddimer COMPARISONS: Chest x-ray 11/03/2018 FINDINGS: The heart is moderately enlarged. There is no evidence of pericardial effusion. The thoracic aorta is normal in caliber. There is no evidence of pulmonary embolus. The lungs are not overtly congested. There is very mild interstitial prominence. There are no localized infiltrates or effusions. There is no evidence of adenopathy. In the upper abdomen the adrenal glands appear normal. The skeletal structures reveal multilevel disc degeneration in the dorsal spine. At the thoracic inlet the thyroid gland appears normal. IMPRESSION: Cardiomegaly. No evidence of pulmonary embolus, aortic dissection, or vascular congestion. Very mild interstitial prominence bilaterally. This may be a chronic basis. No localized infiltrates or effusions.. - Medical Decision Making Patient presents to the hospital with shortness of breath and palpitations as well as chest pain secondary to a flutter with RVR. case d/w with cardiology, consult ordered hospitalist informed for admission. Dr Razo requests bridge orders - Differential Diagnosis RI, PE, dehydration, arrhythmia Critical Care Time: Yes Critical care time in (mins) excluding proc time.: 35 Critical care attestation.: If time is entered above; I have spent that time in minutes in the direct care of this critically ill patient, excluding procedure time. ED Disposition Clinical Impression: Atrial flutter with rapid ventricular response, SOB (shortness of breath), Chest pain, Elevated d-dimer, Dilated cardiomyopathy, HTN (hypertension), Obesity Disposition: -09 OP ADMIT IP TO THIS HOSP Is pt being admited?: Yes Condition: Stable Time of Disposition: 05:33 (hospitalist)
[2018-11-03] MEDS ORDERED: DILAUDID IV ONE ×2 (04:13→04:52)
--- NOTE | 2018-11-03 05:00 | Cat Scan Report ---
PROCEDURE: CT ANGIO CHEST TECHNIQUE: A CT angiogram was performed following the intravenous injection of iodinated contrast. R otational, sagittal, and coronal MIP reconstructions were reviewed. HISTORY: sob, cp, elevated ddimer COMPARISONS: Chest x-ray 11/03/2018 FINDINGS: The heart is moderately enlarged. There is no evidence of pericardial effusion. The thoracic aorta is normal in caliber. There is no evidence of pulmonary embolus. The lungs are not overtly congested. T here is very mild interstitial prominence. There are no localized infiltrates or effusions. There is no evidence of adenopathy. In the upper abdomen the adrenal glands appear normal. The skeletal struct ures reveal multilevel disc degeneration in the dorsal spine. At the thoracic inlet the thyroid gland appears normal. IMPRESSION: Cardiomegaly. No evidence of pulmonary embolus, aortic dissection, or vascular congestion. Very mild interstitial prominence bilaterally. This may be a chronic basis. No localized infiltrates or effusions.. This document is electronically signed by Bari Joiner MD., November 03 2018 04:58:37 AM ET
[2018-11-03] MEDS ORDERED: CARDIZEM IV ONE ×2 (05:09→05:30)
[2018-11-03] MEDS: CARDIZEM 100 MG in D5W 80 ML IV SCH ×2 (06:04→21:04)
[2018-11-03] MEDS ORDERED: ZOFRAN IV PRN (07:33)
[2018-11-03] MEDS ORDERED: TYLENOL PO PRN (07:33)
[2018-11-03] MEDS ORDERED: SODIUM CHLORIDE FLUSH SYRINGE 10 ML IV PRN (07:33)
[2018-11-03] MEDS ORDERED: ALUM-MAG HYDROX-SIMETH 200-200-20MG/5ML PO PRN (07:33)
--- NOTE | 2018-11-03 07:44 | History and Physical Report ---
History of Present Illness Date of examination: 11/03/18 Date of admission: 11/03/18 05:34 Chief complaint: Chest pain History of present illness: 57-year-old -Indian male with past medical history significant for congestive heart failure, diabetes mellitus, hypertension, gout, CAD, migraine presented to the emergency department complaining of left-sided chest pain that started 2 days ago but worsening yesterday. Pain was sharp, 9/10 in intensity, with no radiation, associated with shortness of breath, sweating, leg swelling and palpitation. Patient also admitted for dyspnea, orthopnea was the last 2 days. Patient denied cough, fever, chills, dysuria. REVIEW OF SYSTEMS: GENERAL: no weight change, no fatigue, no fever HEAD: no head ache EYES: no blurry vision, no acute visual loss EARS: no hearing loss, no discharge, no earache NOSE: no stuffiness, no sneezing, no discharge MOUTH, THROAT AND NECK: no bleeding gums, no sore throat, no swollen neck CARDIAC: As stated in HPI. RESPIRATORY: As stated in the HPI. GI: no decreased appetite, no nausea, no vomiting, no dysphagia, no diarrhea, no constipation, no abdominal pain. URINARY: no change in frequency, no urgency, no polyuria, no hematuria, no incontinence MUSCULOSKELETAL: no muscle weakness, no pain, no joint stiffness NEUROLOGIC: no loss of sensation/numbness, no tingling, no tremors, no weakness/paralysis HEMATOLOGIC: no anemia, no easy bruising SKIN: no rashes ENDOCRINE: no heat/cold intolerance, no polyuria, no polydipsia, no thyroid problems PSYCHIATRIC: no anxiety, no depression, no suicidal ideations Past History Past Medical History: arthritis, CAD, diabetes, heart failure, hypertension Past Surgical History: No surgical history Social history: full code. denies: smoking, alcohol abuse, prescription drug abuse, IV drug use Family history: no significant family history Medications and Allergies Allergies Allergy/AdvReac Type Severity Reaction Status Date / Time No Known Allergies Allergy Verified 04/13/18 10:20 Home Medications Medication Instructions Recorded Confirmed Last Taken Type Hydrocodone Bit/Acetaminophen 1 each PO BID PRN #20 tablet 05/05/13 Unknown Rx [Lortab 7.5-500 mg] Prednisone 40 mg PO QDAY #10 tablet 05/05/13 Unknown Rx Cyclobenzaprine HCl [FLEXERIL] 10 mg PO TID #12 tablet 07/07/13 Unknown Rx Sulfamethoxazole/Trimethoprim 1 each PO Q12H #14 tablet 12/14/13 Unknown Rx [Bactrim Ds] cephALEXin [Keflex] 500 mg PO Q8H #21 capsule 12/14/13 Unknown Rx oxyCODONE /ACETAMINOPHEN [Percocet 1 tab PO Q4-6H PRN #20 tablet 12/14/13 Unknown Rx 5/325 mg] Allopurinol [Zyloprim] 100 mg PO QDAY #30 tablet 02/25/14 Unknown Rx Cyclobenzaprine [Flexeril] 10 mg PO TID PRN #30 tablet 08/02/15 Unknown Rx Meloxicam [Mobic] 15 mg PO DAILY #30 tablet 09/12/15 Unknown Rx traMADol [Ultram 50 MG tab] 50 mg PO Q4HR PRN #20 tablet 09/12/15 Unknown Rx HYDROcodone/APAP 10-325 [[place] 1 each PO Q6HR PRN #14 tablet 05/14/17 Unknown Rx 10-325 mg TAB] Ibuprofen [Motrin 800 MG tab] 800 mg PO Q8HR PRN #15 tablet 05/14/17 Unknown Rx Colchicine 0.6 mg PO DAILY #14 capsule 09/29/17 Unknown Rx HYDROcodone/APAP 7.5-325 [[place] 1 each PO Q6HR PRN #14 tablet 09/29/17 Unknown Rx 7.5-325 mg TAB] Indomethacin 50 mg PO Q8H #30 capsule 09/29/17 Unknown Rx predniSONE [Deltasone] 40 mg PO QDAY #5 tab 09/29/17 Unknown Rx Acetaminophen/Codeine [Tylenol 1 tab PO Q6H PRN #12 tab 02/02/18 Unknown Rx /Codeine # 3 tab] Ibuprofen 800 mg PO TID PRN #15 tablet 02/02/18 Unknown Rx methylPREDNISolone [Medrol Dose 4 mg PO DAILY 6 Days #1 pkg 02/02/18 Unknown Rx Andrea] Acetaminophen/Codeine [Tylenol 1 tab PO Q6H PRN #12 tab 02/23/18 Unknown Rx /Codeine # 3 tab] Colchicine 0.6 mg PO DAILY #14 capsule 02/23/18 Unknown Rx Ibuprofen [Motrin] 600 mg PO Q8H PRN #30 tablet 02/23/18 Unknown Rx Prednisone [predniSONE 10 mg 10 mg PO .TAPER #1 tab.ds.pk 02/23/18 Unknown Rx (6-Day Pack, 21 Tabs)] Furosemide [Lasix] 20 mg PO QDAY #7 tablet 04/13/18 Unknown Rx Indomethacin 50 mg PO Q8H #15 capsule 04/13/18 Unknown Rx Prednisone [predniSONE 10 mg 10 mg PO .TAPER #1 tab.ds.pk 04/13/18 Unknown Rx (6-Day Pack, 21 Tabs)] Active Meds: Active Medications Acetaminophen (Tylenol) 650 mg PO Q4H PRN PRN Reason: Pain MILD(1-3)/Fever >100.5/[place] Al Hydrox/Mg Hydrox/Simethicone (Alum-Mag Hydrox-Simeth [id number]/5ml) 30 ml PO Q4H PRN PRN Reason: Indigestion Famotidine (Pepcid) 20 mg PO BID JANINE Furosemide (Lasix) 40 mg IV 0600,1800 JANINE Diltiazem HCl 100 mg/ Dextrose 100 mls @ 5 mls/hr IV DIRECT JANINE; Protocol Last Infusion: 11/03/18 06:49 Dose: 15 mg/hr, 15 mls/hr Documented by: Morphine Sulfate (Morphine) 2 mg IV Q4H PRN PRN Reason: Pain, Moderate (4-6) Ondansetron HCl (Zofran) 4 mg IV Q8H PRN PRN Reason: Nausea And Vomiting Oxycodone/Acetaminophen (Percocet 5/325) 1 tab PO Q6H PRN PRN Reason: Pain, Moderate (4-6) Sodium Chloride (Sodium Chloride Flush Syringe 10 Ml) 10 ml IV BID JANINE Sodium Chloride (Sodium Chloride Flush Syringe 10 Ml) 10 ml IV PRN PRN PRN Reason: LINE FLUSH Exam - Physical Exam Narrative exam: Not in cardiopulmonary distress. The patient appeared well nourished and normally developed. Vital signs as documented. Head exam is unremarkable. No scleral icterus . Neck is without jugular venous distension, thyromegaly, or carotid bruits. Lungs are clear to auscultation. Cardiac exam reveals regular rate and Rhythm. Tachycardia. Abdominal exam reveals normal bowel sounds. Extremities are nonedematous and both femoral and pedal pulses are normal. 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 - Constitutional Vitals: Temp Pulse Resp BP Pulse Ox 98.7 F 131 H 26 H 130/103 95 11/03/18 02:23 11/03/18 06:45 11/03/18 06:45 11/03/18 06:45 11/03/18 06:45 Results - Labs CBC & Chem 7: 11/03/18 02:29 11/03/18 02:29 Labs: Laboratory Last Values WBC 13.8 K/mm3 (4.5-11.0) H 11/03/18 02:29 RBC 4.77 M/mm3 (3.65-5.03) 11/03/18 02:29 Hgb 12.6 gm/dl (11.8-15.2) 11/03/18 02:29 Hct 39.7 % (35.5-45.6) 11/03/18 02:29 MCV 83 fl (84-94) L 11/03/18 02:29 MCH 26 pg (28-32) L 11/03/18 02:29 MCHC 32 % (32-34) 11/03/18 02:29 RDW 16.9 % (13.2-15.2) H 11/03/18 02:29 Plt Count 292 K/mm3 (140-440) 11/03/18 02:29 Lymph % (Auto) 29.1 % (13.4-35.0) 11/03/18 02:29 [place] % (Auto) 9.0 % (0.0-7.3) H 11/03/18 02:29 Eos % (Auto) 1.4 % (0.0-4.3) 11/03/18 02:29 Baso % (Auto) 1.5 % (0.0-1.8) 11/03/18 02:29 Lymph # 4.0 K/mm3 (1.2-5.4) 11/03/18 02:29 [place] # 1.2 K/mm3 (0.0-0.8) H 11/03/18 02:29 Eos # 0.2 K/mm3 (0.0-0.4) 11/03/18 02:29 Baso # 0.2 K/mm3 (0.0-0.1) H 11/03/18 02:29 Seg Neutrophils % 59.0 % (40.0-70.0) 11/03/18 02:29 Seg Neutrophils # 8.1 K/mm3 (1.8-7.7) H 11/03/18 02:29 PT 16.1 Sec. (12.2-14.9) H 11/03/18 02:37 INR 1.21 (0.87-1.13) H 11/03/18 02:37 D-Dimer 1464.46 ng/mlDDU (0-234) H 11/03/18 02:37 Sodium 137 mmol/L (137-145) 11/03/18 02:29 Potassium 4.6 mmol/L (3.6-5.0) 11/03/18 02:29 Chloride 103.5 mmol/L (98-107) 11/03/18 02:29 Carbon Dioxide 17 mmol/L (22-30) L 11/03/18 02:29 Anion Gap 21 mmol/L 11/03/18 02:29 BUN 26 mg/dL (9-20) H 11/03/18 02:29 Creatinine 1.2 mg/dL (0.8-1.5) 11/03/18 02:29 Estimated GFR > 60 ml/min 11/03/18 02:29 BUN/Creatinine Ratio 22 % 11/03/18 02:29 Glucose 177 mg/dL (75-100) H 11/03/18 02:29 Calcium 9.5 mg/dL (8.4-10.2) 11/03/18 02:29 Troponin T < 0.010 ng/mL (0.00-0.029) 11/03/18 05:35 TSH 2.950 mlU/mL (0.270-4.200) 11/03/18 02:39 Free T4 1.30 ng/dL (0.76-1.46) 11/03/18 02:39 - Imaging and Cardiology Chest x-ray: report reviewed CT scan - chest: report reviewed Assessment and Plan Assessment and plan: Persistent atrial tachycardia - Cardiology was consulted in the emergency department - Patient is on Cardizem drip - We'll monitor Acute on chronic systolic CHF exacerbation - Patient is on IV Lasix, will restart his carvedilol and lisinopril - Pain and a repeat echo Hypertension - Controlled Diabetes mellitus with hyperglycemia - Sliding insulin, ADA diet, Accu-Chek, adjust insulin as needed Gout - not in flare up DVT prophylaxis - On Lovenox Disposition - Admit to ICU, physician internist consult placed by ED. Advance Directives: Yes VTE prophylaxis?: Chemical Plan of care discussed with patient/family: Yes
[2018-11-03] MEDS: LASIX IV SCH ×2 (07:53→18:57)
[2018-11-03 09:34] LABS: Alanine Aminotransferase 263 units/L (7-56); Albumin 4.2 g/dL (3.9-5)
[2018-11-03 09:45] LABS: Bilirubin,Direct < 0.2 mg/dL (0-0.2)
[2018-11-03] MEDS ORDERED: COREG PO SCH (10:00)
[2018-11-03] MEDS ORDERED: COREG ONE (12:49)
[2018-11-03] MEDS ORDERED: PEPCID ONE (12:49)
[2018-11-03] MEDS ORDERED: COLCHICINE ONE (12:50)
[2018-11-03] MEDS: COLCHICINE PO SCH (13:06)
[2018-11-03] MEDS: ZESTRIL PO SCH (13:07)
[2018-11-03] MEDS: SODIUM CHLORIDE FLUSH SYRINGE 10 ML IV SCH ×2 (13:07→22:50)
[2018-11-03] MEDS: PEPCID PO SCH ×2 (13:07→22:49)
--- NOTE | 2018-11-03 13:48 | Consultation ---
History of Present Illness Consult date: 11/03/18 Requesting physician: ELA PHELPS Consult reason: other (aflutter rvr) History of present illness: The pt is a 57-year-old male with a past medical history of dilated NICMP, HF, DM, obesity. 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 He reports recent diagnosis of "weak heart" and heart failure at [facility] in 04/2018. Review of [facility] records reveals that pt underwent LHC and echo at that time and was found to have normal coronaries with severe dilated CMP, EF <15%. Pt presented with complaints of chest pain and shortness of breath for the past 2 days. He is a rather poor historian and does not provide any additional details. Following arrival to ED, he was found to be in AFlutter with RVR and was initiated on cardizem gtt. He denies any current palpitations. He denies any prior history of arrhythmia. Past History Past Medical History: arthritis, diabetes, heart failure Social history: full code. denies: smoking, alcohol abuse, prescription drug abuse, IV drug use Family history: no significant family history Medications and Allergies Allergies Allergy/AdvReac Type Severity Reaction Status Date / Time No Known Allergies Allergy Verified 04/13/18 10:20 Home Medications Medication Instructions Recorded Confirmed Last Taken Type Hydrocodone Bit/Acetaminophen 1 each PO BID PRN #20 tablet 05/05/13 Unknown Rx [Lortab 7.5-500 mg] Prednisone 40 mg PO QDAY #10 tablet 05/05/13 Unknown Rx Cyclobenzaprine HCl [FLEXERIL] 10 mg PO TID #12 tablet 07/07/13 Unknown Rx Sulfamethoxazole/Trimethoprim 1 each PO Q12H #14 tablet 12/14/13 Unknown Rx [Bactrim Ds] cephALEXin [Keflex] 500 mg PO Q8H #21 capsule 12/14/13 Unknown Rx oxyCODONE /ACETAMINOPHEN [Percocet 1 tab PO Q4-6H PRN #20 tablet 12/14/13 Unknown Rx 5/325 mg] Allopurinol [Zyloprim] 100 mg PO QDAY #30 tablet 02/25/14 Unknown Rx Cyclobenzaprine [Flexeril] 10 mg PO TID PRN #30 tablet 08/02/15 Unknown Rx Meloxicam [Mobic] 15 mg PO DAILY #30 tablet 09/12/15 Unknown Rx traMADol [Ultram 50 MG tab] 50 mg PO Q4HR PRN #20 tablet 09/12/15 Unknown Rx HYDROcodone/APAP 10-325 [[place] 1 each PO Q6HR PRN #14 tablet 05/14/17 Unknown Rx 10-325 mg TAB] Ibuprofen [Motrin 800 MG tab] 800 mg PO Q8HR PRN #15 tablet 05/14/17 Unknown Rx Colchicine 0.6 mg PO DAILY #14 capsule 09/29/17 Unknown Rx HYDROcodone/APAP 7.5-325 [[place] 1 each PO Q6HR PRN #14 tablet 09/29/17 Unknown Rx 7.5-325 mg TAB] Indomethacin 50 mg PO Q8H #30 capsule 09/29/17 Unknown Rx predniSONE [Deltasone] 40 mg PO QDAY #5 tab 09/29/17 Unknown Rx Acetaminophen/Codeine [Tylenol 1 tab PO Q6H PRN #12 tab 02/02/18 Unknown Rx /Codeine # 3 tab] Ibuprofen 800 mg PO TID PRN #15 tablet 02/02/18 Unknown Rx methylPREDNISolone [Medrol Dose 4 mg PO DAILY 6 Days #1 pkg 02/02/18 Unknown Rx Andrea] Acetaminophen/Codeine [Tylenol 1 tab PO Q6H PRN #12 tab 02/23/18 Unknown Rx /Codeine # 3 tab] Colchicine 0.6 mg PO DAILY #14 capsule 02/23/18 Unknown Rx Ibuprofen [Motrin] 600 mg PO Q8H PRN #30 tablet 02/23/18 Unknown Rx Prednisone [predniSONE 10 mg 10 mg PO .TAPER #1 tab.ds.pk 02/23/18 Unknown Rx (6-Day Pack, 21 Tabs)] Furosemide [Lasix] 20 mg PO QDAY #7 tablet 04/13/18 Unknown Rx Indomethacin 50 mg PO Q8H #15 capsule 04/13/18 Unknown Rx Prednisone [predniSONE 10 mg 10 mg PO .TAPER #1 tab.ds.pk 04/13/18 Unknown Rx (6-Day Pack, 21 Tabs)] Active Meds: Active Medications Acetaminophen (Tylenol) 650 mg PO Q4H PRN PRN Reason: Pain MILD(1-3)/Fever >100.5/[place] Al Hydrox/Mg Hydrox/Simethicone (Alum-Mag Hydrox-Simeth [phone]/5ml) 30 ml PO Q4H PRN PRN Reason: Indigestion Carvedilol (Coreg) 6.25 mg PO BID [facility] Last Admin: 11/03/18 13:07 Dose: Not Given Documented by: Colchicine (Colchicine) 0.6 mg PO QDAY [facility] Last Admin: 11/03/18 13:06 Dose: 0.6 mg Documented by: Enoxaparin Sodium (Lovenox) 40 mg SUB-Q QDAY@2200 JANINE Famotidine (Pepcid) 20 mg PO BID [facility] Last Admin: 11/03/18 13:07 Dose: 20 mg Documented by: Furosemide (Lasix) 40 mg IV 0600,1800 [facility] Last Admin: 11/03/18 07:53 Dose: 40 mg Documented by: Diltiazem HCl 100 mg/ Dextrose 100 mls @ 5 mls/hr IV DIRECT [facility]; Protocol Last Infusion: 11/03/18 06:49 Dose: 15 mg/hr, 15 mls/hr Documented by: Lisinopril (Zestril) 5 mg PO QDAY [facility] Last Admin: 11/03/18 13:07 Dose: Not Given Documented by: Morphine Sulfate (Morphine) 2 mg IV Q4H PRN PRN Reason: Pain, Moderate (4-6) Ondansetron HCl (Zofran) 4 mg IV Q8H PRN PRN Reason: Nausea And Vomiting Oxycodone/Acetaminophen (Percocet 5/325) 1 tab PO Q6H PRN PRN Reason: Pain, Moderate (4-6) Sodium Chloride (Sodium Chloride Flush Syringe 10 Ml) 10 ml IV BID [facility] Last Admin: 11/03/18 13:07 Dose: 10 ml Documented by: Sodium Chloride (Sodium Chloride Flush Syringe 10 Ml) 10 ml IV PRN PRN PRN Reason: LINE FLUSH Review of Systems Constitutional: no fever, no chills, no sweats Ears, nose, mouth and throat: no ear pain, no nose pain, no sinus pressure, no sinus pain Cardiovascular: chest pain, orthopnea, shortness of breath, dyspnea on exertion, no palpitations, no rapid/irregular heart beat, no syncope, no lightheadedness Respiratory: shortness of breath, dyspnea on exertion, no cough, no congestion, no wheezing, no pain on inspiration Gastrointestinal: no abdominal pain, no nausea, no vomiting, no diarrhea, no constipation, no change in bowel habits Genitourinary Male: no dysuria, no hematuria, no flank pain, no discharge, no urinary frequency, no urinary hesitancy Musculoskeletal: no neck stiffness, no neck pain, no shooting arm pain, no arm numbness/tingling, no low back pain, no shooting leg pain Integumentary: no rash, no pruritis, no redness, no sores, no wounds Neurological: no head injury, no paralysis, no weakness, no parathesias, no numbness, no tingling, no seizures, no syncope Psychiatric: no anxiety Endocrine: no cold intolerance, no heat intolerance Hematologic/Lymphatic: no easy bruising, no easy bleeding Allergic/Immunologic: no urticaria, no wheezing Physical Examination Vital Signs Temp Pulse Resp BP Pulse Ox 98.7 F 68 16 139/103 100 11/03/18 02:23 11/03/18 02:23 11/03/18 02:23 11/03/18 02:23 11/03/18 02:23 General appearance: no acute distress HEENT: Positive: PERRL, Normocephaly, Mucus Membranes Moist Neck: Positive: neck supple, trachea midline Cardiac: Positive: irregularly irregular, S1/S2, Tachycardia Lungs: Positive: Decreased Breath Sounds Neuro: Positive: Grossly Intact Abdomen: Positive: Soft. Negative: Tender Skin: Negative: Rash Musculoskeletal: No Pain Extremities: Present: edema (trace BLE) Results 11/03/18 02:29 11/03/18 02:29 Cardiac Enzymes 11/03/18 Range/Units 08:45 AST 215 H (5-40) units/L Coagulation 11/03/18 Range/Units 02:37 PT 16.1 H (12.2-14.9) Sec. INR 1.21 H (0.87-1.13) CBC 11/03/18 Range/Units 02:29 WBC 13.8 H (4.5-11.0) K/mm3 RBC 4.77 (3.65-5.03) M/mm3 Hgb 12.6 (11.8-15.2) gm/dl Hct 39.7 (35.5-45.6) % Plt Count 292 (140-440) K/mm3 Lymph # 4.0 (1.2-5.4) K/mm3 [place] # 1.2 H (0.0-0.8) K/mm3 Eos # 0.2 (0.0-0.4) K/mm3 Baso # 0.2 H (0.0-0.1) K/mm3 Comprehensive Metabolic Panel 11/03/18 11/03/18 Range/Units 02:29 08:45 Sodium 137 (137-145) mmol/L Potassium 4.6 (3.6-5.0) mmol/L Chloride 103.5 (98-107) mmol/L Carbon Dioxide 17 L (22-30) mmol/L BUN 26 H (9-20) mg/dL Creatinine 1.2 (0.8-1.5) mg/dL Glucose 177 H (75-100) mg/dL Calcium 9.5 (8.4-10.2) mg/dL Direct Bilirubin < 0.2 (0-0.2) mg/dL Indirect Bilirubin 0.4 mg/dL AST 215 H (5-40) units/L ALT 263 H (7-56) units/L Alkaline Phosphatase 93 (35-129) units/L Total Protein 8.1 (6.3-8.2) g/dL Albumin 4.2 (3.9-5) g/dL - Imaging and Cardiology Echo: pending Cardiac cath: report reviewed ([facility] 04/2018 normal coronaries) EKG: report reviewed, image reviewed EKG interpretations - Telemetry EKG Rhythm: Atrial Flutter - EKG Supraventricular dysrhythmia: atrial flutter Assessment and Plan DDimer elevated - chest CTA negative for PE. Thyroid profile WNL. F/u echo. Pt has been initiated on cardizem gtt. LFTs noted to be elevated which precludes use of amiodarone at this time. Optimize HR - initiate lopressor and wean cardizem gtt as tolerated. Would prefer to avoid CCB in setting of severe dilated NICMP. Can consider JUSTINE guided DCCV if unable to optimize HR chemically. Initiate heparin gtt in setting of AFlutter and consider conversion to OAC prior to hospital discharge. Further recs to follow per hospital course. The patient has been seen in conjunction with Dr. Gamble who agrees with the assessment and plan of care. - Patient Problems (1) Atrial flutter with rapid ventricular response Current Visit: Yes Status: Acute (2) Acute HFrEF (heart failure with reduced ejection fraction) Current Visit: Yes Status: Acute (3) Chest pain Current Visit: Yes Status: Acute (4) Nonischemic dilated cardiomyopathy Current Visit: Yes Status: Chronic (5) Diabetes Current Visit: Yes Status: Chronic (6) Obesity Current Visit: Yes Status: Chronic (7) Elevated LFTs Current Visit: Yes Status: Acute
[2018-11-03] MEDS ORDERED: HEPARIN 10,000 UNITS/10 ML IV ONE (15:12)
[2018-11-03 15:18] LABS: Hematocrit 36.7 % (35.5-45.6); Hemoglobin 12.2 gm/dl (11.8-15.2)
[2018-11-03 15:41] LABS: INR 1.27 (0.87-1.13)
[2018-11-03 15:42] LABS: Partial Thromboplastin Time 27.8 Sec. (24.2-36.6)
[2018-11-03] MEDS ORDERED: HEPARIN 10,000 UNITS/10 ML ONE (15:56)
[2018-11-03] MEDS: PERCOCET 5/325 PO PRN (17:58)
[2018-11-03] MEDS ORDERED: PERCOCET 5/325 ONE (17:58)
[2018-11-03 18:01] LABS: Bilirubin,Urine NEG (Negative); Blood,Urine NEG (Negative); Color,Urine Yellow (Yellow); Protein,Urine <15 mg/dL mg/dL (Negative); Urobilinogen,Urine < 2.0 mg/dL (<2.0)
[2018-11-03 18:08] LABS: Amphetamine Screen,Urine PRESUMPTIVE NEGATIVE; Benzodiazepines Screen,Urine PRESUMPTIVE NEGATIVE; Cannabinoid Screen,Urine PRESUMPTIVE NEGATIVE; Cocaine Screen,Urine PRESUMPTIVE NEGATIVE; Methadone Screen,Urine PRESUMPTIVE NEGATIVE; Opiate Screen,Urine PRESUMPTIVE NEGATIVE
[2018-11-03] MEDS ORDERED: LASIX ONE (18:57)
[2018-11-03] MEDS ORDERED: LOVENOX SUB-Q SCH (22:00)
[2018-11-03] MEDS: HEPARIN/ 0.45% NACL-25,000 UNIT/500 ML 25,000 UNIT/500 ML BAG IV SCH (22:37)
[2018-11-03] MEDS: LOPRESSOR PO SCH (22:49)
[2018-11-03] MEDS: MORPHINE IV PRN (22:50)
[2018-11-04] MEDS: PERCOCET 5/325 PO PRN (00:27)
[2018-11-04] MEDS: CARDIZEM 100 MG in D5W 80 ML IV SCH ×2 (05:29→13:07)
[2018-11-04 05:50] LABS: Hematocrit 40.7 % (35.5-45.6); Mean Corpuscular HGB Conc 32 % (32-34); Mean Corpuscular Volume 84 fl (84-94); Platelet Count 282 K/mm3 (140-440); Red Blood Count 4.87 M/mm3 (3.65-5.03); Red Cell Distribution Width 17.8 % (13.2-15.2)
[2018-11-04 05:58] LABS: Basophils # (Auto) 0.1 K/mm3 (0.0-0.1); Basophils % (Auto) 0.6 % (0.0-1.8); Eosinophils % (Auto) 0.3 % (0.0-4.3); Lymphocytes # (Auto) 2.4 K/mm3 (1.2-5.4); Lymphocytes % (Auto) 15.3 % (13.4-35.0); Monocytes # (Auto) 1.5 K/mm3 (0.0-0.8); Monocytes % (Auto) 9.3 % (0.0-7.3)
[2018-11-04 06:00] LABS: Alanine Aminotransferase 369 units/L (7-56); Albumin 4.2 g/dL (3.9-5); BUN/Creatinine Ratio 22; Blood Urea Nitrogen 29 mg/dL (9-20); Calcium 9.3 mg/dL (8.4-10.2); Hemolysis Index 8
[2018-11-04] MEDS: LASIX IV SCH ×2 (06:16→18:00)
[2018-11-04] MEDS: MORPHINE IV PRN (07:20)
[2018-11-04] MEDS: LOPRESSOR PO SCH ×2 (08:00→21:55)
[2018-11-04] MEDS: SODIUM CHLORIDE FLUSH SYRINGE 10 ML IV SCH ×2 (10:00→22:18)
[2018-11-04] MEDS: ZESTRIL PO SCH (10:00)
[2018-11-04] MEDS: COLCHICINE PO SCH (10:00)
[2018-11-04] MEDS: PEPCID PO SCH ×2 (10:00→22:17)
--- NOTE | 2018-11-04 11:33 | Consultation ---
History of Present Illness - Reason for Consult Consult date: 11/04/18 Aflutter Requesting physician: CORA MOTTA - History of Present Illness 57 y/o male admitted to ICU with aflutter not rate controlled on Dilt drip. Currently at 15/hr and rate is still not controlled. Cards has seen and added TID metoprolol. Currently on 2 LNC but in no distress. Past History Past Medical History: arthritis, diabetes, heart failure Past Surgical History: No surgical history Social history: full code. denies: smoking, alcohol abuse, prescription drug abuse, IV drug use Family history: no significant family history Medications and Allergies Allergies Allergy/AdvReac Type Severity Reaction Status Date / Time No Known Allergies Allergy Verified 04/13/18 10:20 Home Medications Medication Instructions Recorded Confirmed Last Taken Type Hydrocodone Bit/Acetaminophen 1 each PO BID PRN #20 tablet 05/05/13 Unknown Rx [Lortab 7.5-500 mg] Prednisone 40 mg PO QDAY #10 tablet 05/05/13 Unknown Rx Cyclobenzaprine HCl [FLEXERIL] 10 mg PO TID #12 tablet 07/07/13 Unknown Rx Sulfamethoxazole/Trimethoprim 1 each PO Q12H #14 tablet 12/14/13 Unknown Rx [Bactrim Ds] cephALEXin [Keflex] 500 mg PO Q8H #21 capsule 12/14/13 Unknown Rx oxyCODONE /ACETAMINOPHEN [Percocet 1 tab PO Q4-6H PRN #20 tablet 12/14/13 Unknown Rx 5/325 mg] Allopurinol [Zyloprim] 100 mg PO QDAY #30 tablet 02/25/14 Unknown Rx Cyclobenzaprine [Flexeril] 10 mg PO TID PRN #30 tablet 08/02/15 Unknown Rx Meloxicam [Mobic] 15 mg PO DAILY #30 tablet 09/12/15 Unknown Rx traMADol [Ultram 50 MG tab] 50 mg PO Q4HR PRN #20 tablet 09/12/15 Unknown Rx HYDROcodone/APAP 10-325 [[place] 1 each PO Q6HR PRN #14 tablet 05/14/17 Unknown Rx 10-325 mg TAB] Ibuprofen [Motrin 800 MG tab] 800 mg PO Q8HR PRN #15 tablet 05/14/17 Unknown Rx Colchicine 0.6 mg PO DAILY #14 capsule 09/29/17 Unknown Rx HYDROcodone/APAP 7.5-325 [[place] 1 each PO Q6HR PRN #14 tablet 09/29/17 Unknown Rx 7.5-325 mg TAB] Indomethacin 50 mg PO Q8H #30 capsule 09/29/17 Unknown Rx predniSONE [Deltasone] 40 mg PO QDAY #5 tab 09/29/17 Unknown Rx Acetaminophen/Codeine [Tylenol 1 tab PO Q6H PRN #12 tab 02/02/18 Unknown Rx /Codeine # 3 tab] Ibuprofen 800 mg PO TID PRN #15 tablet 02/02/18 Unknown Rx methylPREDNISolone [Medrol Dose 4 mg PO DAILY 6 Days #1 pkg 02/02/18 Unknown Rx Andrea] Acetaminophen/Codeine [Tylenol 1 tab PO Q6H PRN #12 tab 02/23/18 Unknown Rx /Codeine # 3 tab] Colchicine 0.6 mg PO DAILY #14 capsule 02/23/18 Unknown Rx Ibuprofen [Motrin] 600 mg PO Q8H PRN #30 tablet 02/23/18 Unknown Rx Prednisone [predniSONE 10 mg 10 mg PO .TAPER #1 tab.ds.pk 02/23/18 Unknown Rx (6-Day Pack, 21 Tabs)] Furosemide [Lasix] 20 mg PO QDAY #7 tablet 04/13/18 Unknown Rx Indomethacin 50 mg PO Q8H #15 capsule 04/13/18 Unknown Rx Prednisone [predniSONE 10 mg 10 mg PO .TAPER #1 tab.ds.pk 04/13/18 Unknown Rx (6-Day Pack, 21 Tabs)] Active Meds: Active Medications Acetaminophen (Tylenol) 650 mg PO Q4H PRN PRN Reason: Pain MILD(1-3)/Fever >100.5/[place] Al Hydrox/Mg Hydrox/Simethicone (Alum-Mag Hydrox-Simeth [phone]/5ml) 30 ml PO Q4H PRN PRN Reason: Indigestion Colchicine (Colchicine) 0.6 mg PO QDAY [facility] Last Admin: 11/04/18 10:00 Dose: 0.6 mg Documented by: Famotidine (Pepcid) 20 mg PO BID [facility] Last Admin: 11/04/18 10:00 Dose: 20 mg Documented by: Furosemide (Lasix) 40 mg IV 0600,1800 [facility] Last Admin: 11/04/18 06:16 Dose: 40 mg Documented by: Diltiazem HCl 100 mg/ Dextrose 100 mls @ 5 mls/hr IV DIRECT JANINE; Protocol Last Admin: 11/04/18 05:29 Dose: 15 mg/hr, 15 mls/hr Documented by: Heparin Sodium/Sodium Chloride (Heparin/ 0.45% Nacl-25,000 Unit/500 Ml) 25,000 unit in 500 mls @ 30 mls/hr IV TITR JANINE; Protocol Last Titration: 11/04/18 08:07 Dose: 1,200 units/hr, 24 mls/hr Documented by: Lisinopril (Zestril) 5 mg PO QDAY [facility] Last Admin: 11/04/18 10:00 Dose: 5 mg Documented by: Metoprolol Tartrate (Lopressor) 25 mg PO TID [facility] Last Admin: 11/04/18 08:00 Dose: 25 mg Documented by: Morphine Sulfate (Morphine) 2 mg IV Q4H PRN PRN Reason: Pain, Moderate (4-6) Last Admin: 11/04/18 07:20 Dose: 2 mg Documented by: Ondansetron HCl (Zofran) 4 mg IV Q8H PRN PRN Reason: Nausea And Vomiting Oxycodone/Acetaminophen (Percocet 5/325) 1 tab PO Q6H PRN PRN Reason: Pain, Moderate (4-6) Last Admin: 11/04/18 00:27 Dose: 1 tab Documented by: Sodium Chloride (Sodium Chloride Flush Syringe 10 Ml) 10 ml IV BID [facility] Last Admin: 11/04/18 10:00 Dose: 10 ml Documented by: Sodium Chloride (Sodium Chloride Flush Syringe 10 Ml) 10 ml IV PRN PRN PRN Reason: LINE FLUSH Review of Systems All systems: negative Exam - Constitutional Vitals: Temp Pulse Resp BP Pulse Ox 98.0 F 118 H 33 H 103/73 86 11/04/18 08:00 11/04/18 11:20 11/04/18 11:20 11/04/18 11:20 11/04/18 11:20 General appearance: Present: no acute distress - EENT Eyes: Present: PERRL ENT: hearing intact - Neck Neck: Present: supple - Respiratory Respiratory effort: normal Respiratory: bilateral: diminished - Cardiovascular Rhythm: regular (but tachycardic) Results - Labs CBC & Chem 7: 11/04/18 04:43 11/04/18 04:43 Labs: Abnormal lab results 11/03/18 11/04/18 11/04/18 Range/Units 14:29 04:43 04:43 WBC 15.8 H (4.5-11.0) K/mm3 MCH 27 L (28-32) pg RDW 17.8 H (13.2-15.2) % [place] % (Auto) 9.3 H (0.0-7.3) % [place] # 1.5 H (0.0-0.8) K/mm3 Seg Neutrophils % 74.5 H (40.0-70.0) % Seg Neutrophils # 11.7 H (1.8-7.7) K/mm3 PT 16.7 H (12.2-14.9) Sec. INR 1.27 H (0.87-1.13) Heparin Anti-Xa Level (0.3-0.7) U.I./ml Sodium 134 L (137-145) mmol/L Carbon Dioxide 15 L (22-30) mmol/L BUN 29 H (9-20) mg/dL Glucose 243 H (75-100) mg/dL AST 266 H (5-40) units/L ALT 369 H (7-56) units/L 11/04/18 Range/Units 04:43 WBC (4.5-11.0) K/mm3 MCH (28-32) pg RDW (13.2-15.2) % [place] % (Auto) (0.0-7.3) % [place] # (0.0-0.8) K/mm3 Seg Neutrophils % (40.0-70.0) % Seg Neutrophils # (1.8-7.7) K/mm3 PT (12.2-14.9) Sec. INR (0.87-1.13) Heparin Anti-Xa Level 2.00 H (0.3-0.7) U.I./ml Sodium (137-145) mmol/L Carbon Dioxide (22-30) mmol/L BUN (9-20) mg/dL Glucose (75-100) mg/dL AST (5-40) units/L ALT (7-56) units/L - Imaging and Cardiology Chest x-ray: image reviewed CT scan - chest: image reviewed Assessment and Plan 57 y/o male with aflutter not rate controlled and per chart history of heart failure. 1. Rate control per cards 2. Anticoagulation 3. BP control 4. Ordered Mag level, K is ok 5. Needs strict I/O given EF of 15%
--- NOTE | 2018-11-04 11:41 | Progress Note ---
Assessment and Plan F/u echo. Pt has been initiated on cardizem gtt. LFTs noted to be elevated which precludes use of amiodarone at this time. Optimize HR - increase lopressor and wean cardizem gtt as tolerated. Would prefer to avoid CCB in setting of severe dilated NICMP. Can consider digoxin. Can also consider JUSTINE guided DCCV if unable to optimize HR chemically. Cont heparin gtt in setting of AFlutter and consider conversion to OAC prior to hospital discharge. Further recs to follow per hospital course. The patient has been seen in conjunction with Dr. Gamble who agrees with the assessment and plan of care. - Patient Problems (1) Atrial flutter with rapid ventricular response Current Visit: Yes Status: Acute (2) Acute HFrEF (heart failure with reduced ejection fraction) Current Visit: Yes Status: Acute (3) Chest pain Current Visit: Yes Status: Acute (4) Nonischemic dilated cardiomyopathy Current Visit: Yes Status: Chronic (5) Diabetes Current Visit: Yes Status: Chronic (6) Obesity Current Visit: Yes Status: Chronic (7) Elevated LFTs Current Visit: Yes Status: Acute Subjective Date of service: 11/04/18 Principal diagnosis: HF; AFlutter Interval history: pt resting in bed, remains SOB. in AFlutter with HR 120s on tele, cardizem gtt infusing at 15mg/hr. Objective Last Vital Signs Temp 98.0 F 11/04/18 08:00 Pulse 118 H 11/04/18 11:20 Resp 33 H 11/04/18 11:20 BP 103/73 11/04/18 11:20 Pulse Ox 86 11/04/18 11:20 - Physical Examination General: Other (sob) HEENT: Positive: PERRL, Normocephaly, Mucus Membranes Moist Neck: Positive: neck supple, trachea midline Cardiac: Positive: irregularly irregular, S1/S2, Tachycardia Lungs: Positive: Decreased Breath Sounds Neuro: Positive: Grossly Intact Abdomen: Positive: Soft. Negative: Tender Skin: Negative: Rash Musculoskeletal: No Pain Extremities: Present: edema (trace BLE) - Labs and Meds Cardiac Enzymes 11/04/18 Range/Units 04:43 AST 266 H (5-40) units/L Coagulation 11/03/18 Range/Units 14:29 PT 16.7 H (12.2-14.9) Sec. INR 1.27 H (0.87-1.13) APTT 27.8 (24.2-36.6) Sec. CBC 11/03/18 11/04/18 Range/Units 14:29 04:43 WBC 15.8 H (4.5-11.0) K/mm3 RBC 4.87 (3.65-5.03) M/mm3 Hgb 12.2 13.0 (11.8-15.2) gm/dl Hct 36.7 40.7 (35.5-45.6) % Plt Count 295 282 (140-440) K/mm3 Lymph # 2.4 (1.2-5.4) K/mm3 [place] # 1.5 H (0.0-0.8) K/mm3 Eos # 0.0 (0.0-0.4) K/mm3 Baso # 0.1 (0.0-0.1) K/mm3 Comprehensive Metabolic Panel 11/04/18 Range/Units 04:43 Sodium 134 L (137-145) mmol/L Potassium 4.8 (3.6-5.0) mmol/L Chloride 99.3 (98-107) mmol/L Carbon Dioxide 15 L (22-30) mmol/L BUN 29 H (9-20) mg/dL Creatinine 1.3 (0.8-1.5) mg/dL Glucose 243 H (75-100) mg/dL Calcium 9.3 (8.4-10.2) mg/dL AST 266 H (5-40) units/L ALT 369 H (7-56) units/L Alkaline Phosphatase 91 (35-129) units/L Total Protein 7.8 (6.3-8.2) g/dL Albumin 4.2 (3.9-5) g/dL - Imaging and Cardiology EKG: report reviewed, image reviewed Echo: pending Cardiac cath: report reviewed ([facility] 04/2018 normal coronaries) - Telemetry EKG Rhythm: Atrial Flutter
[2018-11-04] MEDS ORDERED: LOPRESSOR PO ONE (11:48)
--- NOTE | 2018-11-04 16:00 | Progress Note ---
Assessment and Plan Assessment and plan: Persistent atrial fibrillation - Cardiology consult appreciated - Patient is on Cardizem drip - We'll monitor Acute on chronic systolic CHF exacerbation - Patient is on IV Lasix, carvedilol and lisinopril - Pain and a repeat echo Hypertension - Controlled Diabetes mellitus with hyperglycemia - Sliding insulin, ADA diet, Accu-Chek, adjust insulin as needed Gout - not in flare up DVT prophylaxis - On Lovenox Disposition - continue ICU care History Interval history: Patient was seen and evaluated this morning, still rate is not controlled. Hospitalist Physical - Physical exam Narrative exam: Not in cardiopulmonary distress. The patient appeared well nourished and normally developed. Vital signs as documented. Head exam is unremarkable. No scleral icterus . Neck is without jugular venous distension, thyromegaly, or carotid bruits. Lungs are clear to auscultation. Cardiac exam reveals regular rate and Rhythm. Tachycardia. Abdominal exam reveals normal bowel sounds. Extremities are nonedematous and both femoral and pedal pulses are normal. 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 - Constitutional Vitals: Temp Pulse Resp BP Pulse Ox 98.0 F 107 H 19 100/61 94 11/04/18 11:57 11/04/18 15:41 11/04/18 15:41 11/04/18 15:41 11/04/18 15:41 General appearance: Present: no acute distress Results - Labs CBC & Chem 7: 11/04/18 04:43 11/04/18 04:43 Labs: Laboratory Last Values WBC 15.8 K/mm3 (4.5-11.0) H 11/04/18 04:43 RBC 4.87 M/mm3 (3.65-5.03) 11/04/18 04:43 Hgb 13.0 gm/dl (11.8-15.2) 11/04/18 04:43 Hct 40.7 % (35.5-45.6) 11/04/18 04:43 MCV 84 fl (84-94) 11/04/18 04:43 MCH 27 pg (28-32) L 11/04/18 04:43 MCHC 32 % (32-34) 11/04/18 04:43 RDW 17.8 % (13.2-15.2) H 11/04/18 04:43 Plt Count 282 K/mm3 (140-440) 11/04/18 04:43 Lymph % (Auto) 15.3 % (13.4-35.0) 11/04/18 04:43 Gordon % (Auto) 9.3 % (0.0-7.3) H 11/04/18 04:43 Eos % (Auto) 0.3 % (0.0-4.3) 11/04/18 04:43 Baso % (Auto) 0.6 % (0.0-1.8) 11/04/18 04:43 Lymph # 2.4 K/mm3 (1.2-5.4) 11/04/18 04:43 Gordon # 1.5 K/mm3 (0.0-0.8) H 11/04/18 04:43 Eos # 0.0 K/mm3 (0.0-0.4) 11/04/18 04:43 Baso # 0.1 K/mm3 (0.0-0.1) 11/04/18 04:43 Seg Neutrophils % 74.5 % (40.0-70.0) H 11/04/18 04:43 Seg Neutrophils # 11.7 K/mm3 (1.8-7.7) H 11/04/18 04:43 PT 16.7 Sec. (12.2-14.9) H 11/03/18 14:29 INR 1.27 (0.87-1.13) H 11/03/18 14:29 APTT 27.8 Sec. (24.2-36.6) 11/03/18 14:29 D-Dimer 1464.46 ng/mlDDU (0-234) H 11/03/18 02:37 Heparin Anti-Xa Level 2.00 U.I./ml (0.3-0.7) H 11/04/18 04:43 Sodium 134 mmol/L (137-145) L 11/04/18 04:43 Potassium 4.8 mmol/L (3.6-5.0) 11/04/18 04:43 Chloride 99.3 mmol/L (98-107) 11/04/18 04:43 Carbon Dioxide 15 mmol/L (22-30) L 11/04/18 04:43 Anion Gap 25 mmol/L 11/04/18 04:43 BUN 29 mg/dL (9-20) H 11/04/18 04:43 Creatinine 1.3 mg/dL (0.8-1.5) 11/04/18 04:43 Estimated GFR > 60 ml/min 11/04/18 04:43 BUN/Creatinine Ratio 22 % 11/04/18 04:43 Glucose 243 mg/dL (75-100) H 11/04/18 04:43 POC Glucose 235 (70-105) H 11/04/18 11:11 Calcium 9.3 mg/dL (8.4-10.2) 11/04/18 04:43 Magnesium 2.00 mg/dL (1.7-2.3) 11/04/18 04:43 Total Bilirubin 0.90 mg/dL (0.1-1.2) 11/04/18 04:43 Direct Bilirubin < 0.2 mg/dL (0-0.2) 11/03/18 08:45 Indirect Bilirubin 0.4 mg/dL 11/03/18 08:45 AST 266 units/L (5-40) H 11/04/18 04:43 ALT 369 units/L (7-56) H 11/04/18 04:43 Alkaline Phosphatase 91 units/L (35-129) 11/04/18 04:43 Troponin T < 0.010 ng/mL (0.00-0.029) 11/03/18 05:35 Total Protein 7.8 g/dL (6.3-8.2) 11/04/18 04:43 Albumin 4.2 g/dL (3.9-5) 11/04/18 04:43 Albumin/Globulin Ratio 1.2 % 11/04/18 04:43 TSH 2.950 mlU/mL (0.270-4.200) 11/03/18 02:39 Free T4 1.30 ng/dL (0.76-1.46) 11/03/18 02:39 Urine Color Yellow (Yellow) 11/03/18 17:28 Urine Turbidity Clear (Clear) 11/03/18 17:28 Urine pH 5.0 (5.0-7.0) 11/03/18 17:28 Ur Specific [place] 1.030 (1.003-1.030) 11/03/18 17:28 Urine Protein <15 mg/dl mg/dL (Negative) 11/03/18 17:28 Urine Glucose (UA) Neg mg/dL (Negative) 11/03/18 17:28 Urine Ketones Neg mg/dL (Negative) 11/03/18 17:28 Urine Blood Neg (Negative) 11/03/18 17:28 Urine Nitrite Neg (Negative) 11/03/18 17:28 Urine Bilirubin Neg (Negative) 11/03/18 17:28 Urine Urobilinogen < 2.0 mg/dL (<2.0) 11/03/18 17:28 Ur Leukocyte Esterase Neg (Negative) 11/03/18 17:28 Urine WBC (Auto) 4.0 /HPF (0.0-6.0) 11/03/18 17:28 Urine RBC (Auto) 2.0 /HPF (0.0-6.0) 11/03/18 17:28 Urine Opiates Screen Presumptive negative 11/03/18 17:28 Urine Methadone Screen Presumptive negative 11/03/18 17:28 Ur Barbiturates Screen Presumptive negative 11/03/18 17:28 Ur Phencyclidine Scrn Presumptive negative 11/03/18 17:28 Ur Amphetamines Screen Presumptive negative 11/03/18 17:28 U Benzodiazepines Scrn Presumptive negative 11/03/18 17:28 Urine Cocaine Screen Presumptive negative 11/03/18 17:28 U Marijuana (THC) Screen Presumptive negative 11/03/18 17:28 Drugs of Abuse Note Disclamer 11/03/18 17:28 Active Medications - Current Medications Current Medications: Generic Name Dose Route Start Last Admin Trade Name Freq PRN Reason Stop Dose Admin Acetaminophen 650 mg 11/03/18 07:33 Tylenol PO Q4H PRN Pain MILD(1-3)/Fever >100.5/[place] Al Hydrox/Mg Hydrox/Simethicone 30 ml 11/03/18 07:33 Alum-Mag Hydrox-Simeth 465-206-68ze/5ml PO Q4H PRN Indigestion Colchicine 0.6 mg 11/03/18 10:00 11/04/18 10:00 Colchicine PO 0.6 mg QDAY JANINE Administration Famotidine 20 mg 11/03/18 10:00 11/04/18 10:00 Pepcid PO 20 mg BID JANINE Administration Furosemide 40 mg 11/03/18 07:35 11/04/18 06:16 Lasix IV 40 mg 0600,1800 JANINE Administration Diltiazem HCl 100 mg/ Dextrose 100 mls @ 5 mls/hr 11/03/18 06:00 11/04/18 15:00 IV 10 mg/hr DIRECT JANINE 10 mls/hr Infusion Protocol 5 MG/HR Heparin Sodium/Sodium Chloride 25,000 unit in 500 mls @ 30 mls/hr 11/03/18 16:00 11/04/18 08:07 Heparin/ 0.45% Nacl-25,000 Unit/500 Ml IV 1,200 units/hr TITR JANINE 24 mls/hr Titration Protocol 1,500 UNITS/HR Lisinopril 5 mg 11/03/18 10:00 11/04/18 10:00 Zestril PO 5 mg QDAY JANINE Administration Metoprolol Tartrate 50 mg 11/04/18 22:00 Lopressor PO BID JANINE Morphine Sulfate 2 mg 11/03/18 07:33 11/04/18 07:20 Morphine IV 2 mg Q4H PRN Administration Pain, Moderate (4-6) Ondansetron HCl 4 mg 11/03/18 07:33 Zofran IV Q8H PRN Nausea And Vomiting Oxycodone/Acetaminophen 1 tab 11/03/18 07:33 11/04/18 00:27 Percocet 5/325 PO 1 tab Q6H PRN Administration Pain, Moderate (4-6) Sodium Chloride 10 ml 11/03/18 10:00 11/04/18 10:00 Sodium Chloride Flush Syringe 10 Ml IV 10 ml BID JANINE Administration Sodium Chloride 10 ml 11/03/18 07:33 Sodium Chloride Flush Syringe 10 Ml IV PRN PRN LINE FLUSH
[2018-11-04] MEDS: HEPARIN/ 0.45% NACL-25,000 UNIT/500 ML 25,000 UNIT/500 ML BAG IV SCH (18:18)
[2018-11-05] MEDS ORDERED: NACL 0.9% 250ML 250 ML IV ONE (02:09)
[2018-11-05 06:23] LABS: Basophils # (Auto) 0.1 K/mm3 (0.0-0.1); Basophils % (Auto) 0.9 % (0.0-1.8); Eosinophils # (Auto) 0.1 K/mm3 (0.0-0.4); Hematocrit 34.9 % (35.5-45.6); Hemoglobin 11.1 gm/dl (11.8-15.2); Lymphocytes # (Auto) 2.1 K/mm3 (1.2-5.4); Mean Corpuscular HGB Conc 32 % (32-34); Mean Corpuscular Volume 83 fl (84-94); Platelet Count 252 K/mm3 (140-440); Red Blood Count 4.22 M/mm3 (3.65-5.03); Red Cell Distribution Width 17.4 % (13.2-15.2)
[2018-11-05] MEDS: LASIX IV SCH (06:44)
[2018-11-05 06:47] LABS: BUN/Creatinine Ratio 23; Blood Urea Nitrogen 30 mg/dL (9-20); Calcium 8.6 mg/dL (8.4-10.2); Hemolysis Index 30
[2018-11-05] MEDS: SODIUM CHLORIDE FLUSH SYRINGE 10 ML IV SCH ×2 (09:54→22:07)
[2018-11-05] MEDS: LOPRESSOR PO SCH ×2 (09:54→22:06)
[2018-11-05] MEDS: ZESTRIL PO SCH (09:55)
[2018-11-05] MEDS: PEPCID PO SCH ×2 (09:55→22:06)
[2018-11-05] MEDS: COLCHICINE PO SCH (09:55)
[2018-11-05] MEDS: HEPARIN/ 0.45% NACL-25,000 UNIT/500 ML 25,000 UNIT/500 ML BAG IV SCH ×2 (09:57→20:52)
--- NOTE | 2018-11-05 11:07 | Progress Note ---
Assessment and Plan Echo reviewed - EF 15-20%, LA mod to severely dilated, RA severely dilated, RV systolic function mod reduced, mod MR, RVSP 48mmHg. Pt states he is feeling better today and appears clinically improved. He was weaned off cardizem gtt overnight, he remains in Aflutter with HR <100 while at rest and HR 120s with activity. He had a hypotensive episode overnight and was given NS bolus. Will decrease lasix to daily dosing. Optimize HR - LFTs elevated which precludes use of amiodarone at this time. Cont lopressor and initiate digoxin loading and check digoxin level in AM. Can also consider JUSTINE guided DCCV if unable to optimize HR chemically. Cont heparin gtt in setting of AFlutter and consider conversion to OAC prior to hospital discharge. Further recs to follow per hospital course. The patient has been seen in conjunction with Dr. Gamble who agrees with the assessment and plan of care. - Patient Problems (1) Atrial flutter with rapid ventricular response Current Visit: Yes Status: Acute (2) Acute HFrEF (heart failure with reduced ejection fraction) Current Visit: Yes Status: Acute (3) Chest pain Current Visit: Yes Status: Acute (4) Nonischemic dilated cardiomyopathy Current Visit: Yes Status: Chronic (5) Diabetes Current Visit: Yes Status: Chronic (6) Obesity Current Visit: Yes Status: Chronic (7) Elevated LFTs Current Visit: Yes Status: Acute (8) Normal coronary arteries Current Visit: Yes Status: Chronic Subjective Date of service: 11/05/18 Principal diagnosis: HF; AFlutter Interval history: pt resting in bed, states he is feeling better today. he was weaned off cardizem overnight, he remains in Aflutter with HR <100 while at rest and HR 120s with activity. He had a hypotensive episode overnight and was given NS bolus. Objective Last Vital Signs Temp 98.1 F 11/05/18 08:00 Pulse 125 H 11/05/18 10:00 Resp 28 H 11/05/18 10:00 BP 111/80 11/05/18 10:00 Pulse Ox 100 11/05/18 10:00 - Physical Examination General: No Apparent Distress HEENT: Positive: PERRL, Normocephaly, Mucus Membranes Moist Neck: Positive: neck supple, trachea midline Cardiac: Positive: irregularly irregular, S1/S2, Tachycardia Lungs: Positive: Decreased Breath Sounds Neuro: Positive: Grossly Intact Abdomen: Positive: Soft. Negative: Tender Skin: Negative: Rash Musculoskeletal: No Pain Extremities: Present: edema (trace BLE) - Labs and Meds CBC 11/05/18 Range/Units 06:11 WBC 12.1 H (4.5-11.0) K/mm3 RBC 4.22 (3.65-5.03) M/mm3 Hgb 11.1 L (11.8-15.2) gm/dl Hct 34.9 L (35.5-45.6) % Plt Count 252 (140-440) K/mm3 Lymph # 2.1 (1.2-5.4) K/mm3 [place] # 1.0 H (0.0-0.8) K/mm3 Eos # 0.1 (0.0-0.4) K/mm3 Baso # 0.1 (0.0-0.1) K/mm3 Comprehensive Metabolic Panel 11/05/18 Range/Units 06:11 Sodium 133 L (137-145) mmol/L Potassium 4.2 (3.6-5.0) mmol/L Chloride 98.8 (98-107) mmol/L Carbon Dioxide 20 L (22-30) mmol/L BUN 30 H (9-20) mg/dL Creatinine 1.3 (0.8-1.5) mg/dL Glucose 143 H (75-100) mg/dL Calcium 8.6 (8.4-10.2) mg/dL - Imaging and Cardiology EKG: report reviewed, image reviewed Echo: report reviewed Cardiac cath: report reviewed ([place] 04/2018 normal coronaries) - Telemetry EKG Rhythm: Atrial Flutter
--- NOTE | 2018-11-05 12:21 | Progress Note ---
Assessment and Plan 57 y/o male with aflutter not rate controlled and per chart history of heart failure. 1. Rate control per cards, now loading with Dig. Do not want Dilt drip back. Not using Amio since LFT's are elevated. 2. Anticoagulation 3. BP control 4. Monitor electrolytes 5. Needs strict I/O given EF of 15% Subjective Date of service: 11/05/18 Principal diagnosis: HF; AFlutter Interval history: Still with flutter. Rate not controlled. Objective - Constitutional Vitals: Vital Signs - 12hr 11/05/18 11/05/18 11/05/18 00:31 00:45 01:01 Temperature Pulse Rate 122 H 121 H 122 H Respiratory 22 25 H 29 H Rate Blood Pressure 80/50 114/51 100/48 O2 Sat by Pulse 95 92 Oximetry 11/05/18 11/05/18 11/05/18 01:15 01:31 01:45 Temperature Pulse Rate 121 H 123 H 123 H Respiratory 26 H 16 25 H Rate Blood Pressure 77/51 77/51 78/40 O2 Sat by Pulse 97 94 96 Oximetry 11/05/18 11/05/18 11/05/18 02:01 02:15 02:30 Temperature Pulse Rate 122 H 123 H 122 H Respiratory 24 22 20 Rate Blood Pressure 78/40 74/52 94/61 O2 Sat by Pulse 97 100 99 Oximetry 11/05/18 11/05/18 11/05/18 02:45 03:00 03:15 Temperature Pulse Rate 122 H 122 H 122 H Respiratory 15 20 28 H Rate Blood Pressure 94/54 95/61 100/62 O2 Sat by Pulse 100 98 79 L Oximetry 11/05/18 11/05/18 11/05/18 03:30 03:45 04:00 Temperature 99.0 F Pulse Rate 122 H 123 H 117 H Respiratory 19 18 14 Rate Blood Pressure 98/66 99/75 99/75 O2 Sat by Pulse 95 99 98 Oximetry 11/05/18 11/05/18 11/05/18 04:15 04:30 04:45 Temperature Pulse Rate 123 H 122 H 123 H Respiratory 20 21 26 H Rate Blood Pressure 98/65 89/60 107/71 O2 Sat by Pulse 98 93 96 Oximetry 11/05/18 11/05/18 11/05/18 05:00 05:15 05:30 Temperature Pulse Rate 122 H 125 H 124 H Respiratory 20 28 H 20 Rate Blood Pressure 107/73 107/73 107/73 O2 Sat by Pulse 96 86 100 Oximetry 11/05/18 11/05/18 11/05/18 05:45 06:00 06:15 Temperature Pulse Rate 124 H 123 H 124 H Respiratory 23 23 19 Rate Blood Pressure 98/69 100/65 100/65 O2 Sat by Pulse 97 95 98 Oximetry 11/05/18 11/05/18 11/05/18 06:30 06:45 07:00 Temperature Pulse Rate 123 H 124 H 124 H Respiratory 20 18 25 H Rate Blood Pressure 93/61 97/65 O2 Sat by Pulse 97 98 98 Oximetry 11/05/18 11/05/18 11/05/18 07:15 07:23 07:30 Temperature Pulse Rate 124 H 124 H Respiratory 27 H 25 H Rate Blood Pressure 106/73 103/74 O2 Sat by Pulse 99 93 100 Oximetry 11/05/18 11/05/18 11/05/18 07:45 08:00 08:15 Temperature 98.1 F Pulse Rate 124 H 124 H 125 H Respiratory 14 23 17 Rate Blood Pressure 100/76 104/67 104/67 O2 Sat by Pulse 98 99 99 Oximetry 11/05/18 11/05/18 11/05/18 08:30 08:45 09:00 Temperature Pulse Rate 125 H 124 H 124 H Respiratory 16 15 25 H Rate Blood Pressure 103/73 99/60 86/56 O2 Sat by Pulse 100 92 90 Oximetry 11/05/18 11/05/18 11/05/18 09:15 09:31 09:45 Temperature Pulse Rate 125 H 124 H 126 H Respiratory 15 16 29 H Rate Blood Pressure 101/68 89/71 98/71 O2 Sat by Pulse 100 97 99 Oximetry 11/05/18 11/05/18 11/05/18 09:54 09:55 10:00 Temperature Pulse Rate 126 H 126 H 127 H Respiratory 28 H Rate Blood Pressure 98/71 98/71 111/80 O2 Sat by Pulse 100 Oximetry 11/05/18 11/05/18 11/05/18 10:15 10:31 10:45 Temperature Pulse Rate 126 H 126 H 126 H Respiratory 11 L 25 H 17 Rate Blood Pressure 97/71 97/71 105/75 O2 Sat by Pulse 99 98 99 Oximetry 11/05/18 11/05/18 11/05/18 11:01 11:15 11:30 Temperature Pulse Rate 125 H 126 H 125 H Respiratory 28 H 20 19 Rate Blood Pressure 83/51 83/51 104/71 O2 Sat by Pulse 99 96 100 Oximetry 11/05/18 11/05/18 11/05/18 11:45 12:00 12:01 Temperature 98.1 F Pulse Rate 124 H 123 H Respiratory 22 19 24 Rate Blood Pressure 104/71 106/47 O2 Sat by Pulse 99 92 99 Oximetry - Labs CBC & Chem 7: 11/05/18 06:11 11/05/18 06:11 Labs: Abnormal lab results 11/04/18 11/04/18 11/04/18 Range/Units 14:27 16:01 21:52 WBC (4.5-11.0) K/mm3 Hgb (11.8-15.2) gm/dl Hct (35.5-45.6) % MCV (84-94) fl MCH (28-32) pg RDW (13.2-15.2) % [place] % (Auto) (0.0-7.3) % [place] # (0.0-0.8) K/mm3 Seg Neutrophils % (40.0-70.0) % Seg Neutrophils # (1.8-7.7) K/mm3 Heparin Anti-Xa Level 0.10 L 0.10 L (0.3-0.7) U.I./ml Sodium (137-145) mmol/L Carbon Dioxide (22-30) mmol/L BUN (9-20) mg/dL Glucose (75-100) mg/dL POC Glucose 207 H (70-105) 11/05/18 11/05/18 11/05/18 Range/Units 06:11 06:11 06:11 WBC 12.1 H (4.5-11.0) K/mm3 Hgb 11.1 L (11.8-15.2) gm/dl Hct 34.9 L (35.5-45.6) % MCV 83 L (84-94) fl MCH 26 L (28-32) pg RDW 17.4 H (13.2-15.2) % [place] % (Auto) 8.0 H (0.0-7.3) % [place] # 1.0 H (0.0-0.8) K/mm3 Seg Neutrophils % 73.1 H (40.0-70.0) % Seg Neutrophils # 8.8 H (1.8-7.7) K/mm3 Heparin Anti-Xa Level 0.15 L (0.3-0.7) U.I./ml Sodium 133 L (137-145) mmol/L Carbon Dioxide 20 L (22-30) mmol/L BUN 30 H (9-20) mg/dL Glucose 143 H (75-100) mg/dL POC Glucose (70-105) 11/05/18 11/05/18 Range/Units 08:38 11:54 WBC (4.5-11.0) K/mm3 Hgb (11.8-15.2) gm/dl Hct (35.5-45.6) % MCV (84-94) fl MCH (28-32) pg RDW (13.2-15.2) % [place] % (Auto) (0.0-7.3) % [place] # (0.0-0.8) K/mm3 Seg Neutrophils % (40.0-70.0) % Seg Neutrophils # (1.8-7.7) K/mm3 Heparin Anti-Xa Level (0.3-0.7) U.I./ml Sodium (137-145) mmol/L Carbon Dioxide (22-30) mmol/L BUN (9-20) mg/dL Glucose (75-100) mg/dL POC Glucose 161 H 190 H (70-105) Medications & Allergies - Medications Allergies/Adverse Reactions: Allergies No Known Allergies Allergy (Verified 04/13/18 10:20) Home Medications: Home Medications Medication Instructions Recorded Confirmed Last Taken Type Hydrocodone Bit/Acetaminophen 1 each PO BID PRN #20 tablet 05/05/13 Unknown Rx [Lortab 7.5-500 mg] Prednisone 40 mg PO QDAY #10 tablet 05/05/13 Unknown Rx Cyclobenzaprine HCl [FLEXERIL] 10 mg PO TID #12 tablet 07/07/13 Unknown Rx Sulfamethoxazole/Trimethoprim 1 each PO Q12H #14 tablet 12/14/13 Unknown Rx [Bactrim Ds] cephALEXin [Keflex] 500 mg PO Q8H #21 capsule 12/14/13 Unknown Rx oxyCODONE /ACETAMINOPHEN [Percocet 1 tab PO Q4-6H PRN #20 tablet 12/14/13 Unknown Rx 5/325 mg] Allopurinol [Zyloprim] 100 mg PO QDAY #30 tablet 02/25/14 Unknown Rx Cyclobenzaprine [Flexeril] 10 mg PO TID PRN #30 tablet 08/02/15 Unknown Rx Meloxicam [Mobic] 15 mg PO DAILY #30 tablet 09/12/15 Unknown Rx traMADol [Ultram 50 MG tab] 50 mg PO Q4HR PRN #20 tablet 09/12/15 Unknown Rx HYDROcodone/APAP 10-325 [[place]arker 1 each PO Q6HR PRN #14 tablet 05/14/17 Unknown Rx 10-325 mg TAB] Ibuprofen [Motrin 800 MG tab] 800 mg PO Q8HR PRN #15 tablet 05/14/17 Unknown Rx Colchicine 0.6 mg PO DAILY #14 capsule 09/29/17 Unknown Rx HYDROcodone/APAP 7.5-325 [[place] 1 each PO Q6HR PRN #14 tablet 09/29/17 Unknown Rx 7.5-325 mg TAB] Indomethacin 50 mg PO Q8H #30 capsule 09/29/17 Unknown Rx predniSONE [Deltasone] 40 mg PO QDAY #5 tab 09/29/17 Unknown Rx Acetaminophen/Codeine [Tylenol 1 tab PO Q6H PRN #12 tab 02/02/18 Unknown Rx /Codeine # 3 tab] Ibuprofen 800 mg PO TID PRN #15 tablet 02/02/18 Unknown Rx methylPREDNISolone [Medrol Dose 4 mg PO DAILY 6 Days #1 pkg 02/02/18 Unknown Rx Andrea] Acetaminophen/Codeine [Tylenol 1 tab PO Q6H PRN #12 tab 02/23/18 Unknown Rx /Codeine # 3 tab] Colchicine 0.6 mg PO DAILY #14 capsule 02/23/18 Unknown Rx Ibuprofen [Motrin] 600 mg PO Q8H PRN #30 tablet 02/23/18 Unknown Rx Prednisone [predniSONE 10 mg 10 mg PO .TAPER #1 tab.ds.pk 02/23/18 Unknown Rx (6-Day Pack, 21 Tabs)] Furosemide [Lasix] 20 mg PO QDAY #7 tablet 04/13/18 Unknown Rx Indomethacin 50 mg PO Q8H #15 capsule 04/13/18 Unknown Rx Prednisone [predniSONE 10 mg 10 mg PO .TAPER #1 tab.ds.pk 04/13/18 Unknown Rx (6-Day Pack, 21 Tabs)] Active Medications: Generic Name Dose Route Start Last Admin Trade Name Freq PRN Reason Stop Dose Admin Acetaminophen 650 mg 11/03/18 07:33 Tylenol PO Q4H PRN Pain MILD(1-3)/Fever >100.5/[place] Al Hydrox/Mg Hydrox/Simethicone 30 ml 11/03/18 07:33 Alum-Mag Hydrox-Simeth [phone]/5ml PO Q4H PRN Indigestion Colchicine 0.6 mg 11/03/18 10:00 11/05/18 09:55 Colchicine PO 0.6 mg QDAY JANINE Administration Digoxin 0.25 mg 11/05/18 12:00 Lanoxin IV 11/06/18 06:01 Q6HR JANINE Famotidine 20 mg 11/03/18 10:00 11/05/18 09:55 Pepcid PO 20 mg BID JANINE Administration Furosemide 40 mg 11/06/18 10:00 Lasix IV DAILY JANINE Diltiazem HCl 100 mg/ Dextrose 100 mls @ 5 mls/hr 11/03/18 06:00 11/04/18 16:00 IV 0 mg/hr DIRECT JANINE 0 mls/hr Infusion Protocol 5 MG/HR Heparin Sodium/Sodium Chloride 25,000 unit in 500 mls @ 30 mls/hr 11/03/18 1 6:00 11/05/18 09:57 Heparin/ 0.45% Nacl-25,000 Unit/500 Ml IV 1,950 units/hr TITR JANINE 39 mls/hr Administration Protocol 1,500 UNITS/HR Insulin Human Lispro 0 unit 11/05/18 11:30 Humalog SUB-Q ACHS JANINE Protocol Lisinopril 5 mg 11/03/18 10:00 11/05/18 09:55 Zestril PO Not Given QDAY JANINE Metoprolol Tartrate 50 mg 11/04/18 22:00 11/05/18 09:54 Lopressor PO 50 mg BID JANINE Administration Morphine Sulfate 2 mg 11/03/18 07:33 11/04/18 07:20 Morphine IV 2 mg Q4H PRN Administration Pain, Moderate (4-6) Ondansetron HCl 4 mg 11/03/18 07:33 Zofran IV Q8H PRN Nausea And Vomiting Oxycodone/Acetaminophen 1 tab 11/03/18 07:33 11/04/18 00:27 Percocet 5/325 PO 1 tab Q6H PRN Administration Pain, Moderate (4-6) Sodium Chloride 10 ml 11/03/18 10:00 11/05/18 09:54 Sodium Chloride Flush Syringe 10 Ml IV 10 ml BID JANINE Administration Sodium Chloride 10 ml 11/03/18 07:33 Sodium Chloride Flush Syringe 10 Ml IV PRN PRN LINE FLUSH
[2018-11-05] MEDS: LANOXIN IV SCH ×2 (12:34→18:07)
[2018-11-05] MEDS: HumaLOG SUB-Q SCH ×3 (12:35→22:29)
--- NOTE | 2018-11-05 14:40 | Progress Note ---
Assessment and Plan Assessment and plan: Persistent atrial fibrillation - Cardiology consult appreciated - Patient was on Cardizem drip and patient is off cardizem and on digoxin - No amiodarone because of abnormal LFTs - Cardiology is considering cardioversion - On heparin drip, will change to OAC at discharge Acute on chronic systolic CHF exacerbation - EF 15-20% - Patient is on IV Lasix and decreased to once a day, continue carvedilol Hypertension - Controlled Diabetes mellitus with hyperglycemia - Sliding insulin, ADA diet, Accu-Chek, adjust insulin as needed Gout - not in flare up DVT prophylaxis - On Lovenox Disposition - continue ICU care History Interval history: Patient was seen and evaluated this morning, still rate is not controlled. Hospitalist Physical - Physical exam Narrative exam: Not in cardiopulmonary distress. The patient appeared well nourished and normally developed. Vital signs as documented. Head exam is unremarkable. No scleral icterus . Neck is without jugular venous distension, thyromegaly, or carotid bruits. Lungs are clear to auscultation. Cardiac exam reveals regular rate and Rhythm. Tachycardia. Abdominal exam reveals normal bowel sounds. Extremities are nonedematous and both femoral and pedal pulses are normal. 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 - Constitutional Vitals: Temp Pulse Resp BP Pulse Ox 98.1 F 123 H 27 H 114/67 100 11/05/18 12:00 11/05/18 13:15 11/05/18 13:15 11/05/18 13:15 11/05/18 13:15 General appearance: Present: no acute distress Results - Labs CBC & Chem 7: 11/05/18 06:11 11/05/18 06:11 Labs: Laboratory Last Values WBC 12.1 K/mm3 (4.5-11.0) H 11/05/18 06:11 RBC 4.22 M/mm3 (3.65-5.03) 11/05/18 06:11 Hgb 11.1 gm/dl (11.8-15.2) L 11/05/18 06:11 Hct 34.9 % (35.5-45.6) L 11/05/18 06:11 MCV 83 fl (84-94) L 11/05/18 06:11 MCH 26 pg (28-32) L 11/05/18 06:11 MCHC 32 % (32-34) 11/05/18 06:11 RDW 17.4 % (13.2-15.2) H 11/05/18 06:11 Plt Count 252 K/mm3 (140-440) 11/05/18 06:11 Lymph % (Auto) 17.0 % (13.4-35.0) 11/05/18 06:11 [place] % (Auto) 8.0 % (0.0-7.3) H 11/05/18 06:11 Eos % (Auto) 1.0 % (0.0-4.3) 11/05/18 06:11 Baso % (Auto) 0.9 % (0.0-1.8) 11/05/18 06:11 Lymph # 2.1 K/mm3 (1.2-5.4) 11/05/18 06:11 [place] # 1.0 K/mm3 (0.0-0.8) H 11/05/18 06:11 Eos # 0.1 K/mm3 (0.0-0.4) 11/05/18 06:11 Baso # 0.1 K/mm3 (0.0-0.1) 11/05/18 06:11 Seg Neutrophils % 73.1 % (40.0-70.0) H 11/05/18 06:11 Seg Neutrophils # 8.8 K/mm3 (1.8-7.7) H 11/05/18 06:11 PT 16.7 Sec. (12.2-14.9) H 11/03/18 14:29 INR 1.27 (0.87-1.13) H 11/03/18 14:29 APTT 27.8 Sec. (24.2-36.6) 11/03/18 14:29 D-Dimer 1464.46 ng/mlDDU (0-234) H 11/03/18 02:37 Heparin Anti-Xa Level 0.17 U.I./ml (0.3-0.7) L 11/05/18 13:19 Sodium 133 mmol/L (137-145) L 11/05/18 06:11 Potassium 4.2 mmol/L (3.6-5.0) 11/05/18 06:11 Chloride 98.8 mmol/L (98-107) 11/05/18 06:11 Carbon Dioxide 20 mmol/L (22-30) L 11/05/18 06:11 Anion Gap 18 mmol/L 11/05/18 06:11 BUN 30 mg/dL (9-20) H 11/05/18 06:11 Creatinine 1.3 mg/dL (0.8-1.5) 11/05/18 06:11 Estimated GFR > 60 ml/min 11/05/18 06:11 BUN/Creatinine Ratio 23 % 11/05/18 06:11 Glucose 143 mg/dL (75-100) H 11/05/18 06:11 POC Glucose 190 (70-105) H 11/05/18 11:54 Calcium 8.6 mg/dL (8.4-10.2) 11/05/18 06:11 Magnesium 2.00 mg/dL (1.7-2.3) 11/04/18 04:43 Total Bilirubin 0.90 mg/dL (0.1-1.2) 11/04/18 04:43 Direct Bilirubin < 0.2 mg/dL (0-0.2) 11/03/18 08:45 Indirect Bilirubin 0.4 mg/dL 11/03/18 08:45 AST 266 units/L (5-40) H 11/04/18 04:43 ALT 369 units/L (7-56) H 11/04/18 04:43 Alkaline Phosphatase 91 units/L (35-129) 11/04/18 04:43 Troponin T < 0.010 ng/mL (0.00-0.029) 11/03/18 05:35 Total Protein 7.8 g/dL (6.3-8.2) 11/04/18 04:43 Albumin 4.2 g/dL (3.9-5) 11/04/18 04:43 Albumin/Globulin Ratio 1.2 % 11/04/18 04:43 TSH 2.950 mlU/mL (0.270-4.200) 11/03/18 02:39 Free T4 1.30 ng/dL (0.76-1.46) 11/03/18 02:39 Urine Color Yellow (Yellow) 11/03/18 17:28 Urine Turbidity Clear (Clear) 11/03/18 17:28 Urine pH 5.0 (5.0-7.0) 11/03/18 17:28 Ur Specific [place] 1.030 (1.003-1.030) 11/03/18 17:28 Urine Protein <15 mg/dl mg/dL (Negative) 11/03/18 17:28 Urine Glucose (UA) Neg mg/dL (Negative) 11/03/18 17:28 Urine Ketones Neg mg/dL (Negative) 11/03/18 17:28 Urine Blood Neg (Negative) 11/03/18 17:28 Urine Nitrite Neg (Negative) 11/03/18 17:28 Urine Bilirubin Neg (Negative) 11/03/18 17:28 Urine Urobilinogen < 2.0 mg/dL (<2.0) 11/03/18 17:28 Ur Leukocyte Esterase Neg (Negative) 11/03/18 17:28 Urine WBC (Auto) 4.0 /HPF (0.0-6.0) 11/03/18 17:28 Urine RBC (Auto) 2.0 /HPF (0.0-6.0) 11/03/18 17:28 Urine Opiates Screen Presumptive negative 11/03/18 17:28 Urine Methadone Screen Presumptive negative 11/03/18 17:28 Ur Barbiturates Screen Presumptive negative 11/03/18 17:28 Ur Phencyclidine Scrn Presumptive negative 11/03/18 17:28 Ur Amphetamines Screen Presumptive negative 11/03/18 17:28 U Benzodiazepines Scrn Presumptive negative 11/03/18 17:28 Urine Cocaine Screen Presumptive negative 11/03/18 17:28 U Marijuana (THC) Screen Presumptive negative 11/03/18 17:28 Drugs of Abuse Note Disclamer 11/03/18 17:28 Active Medications - Current Medications Current Medications: Generic Name Dose Route Start Last Admin Trade Name Freq PRN Reason Stop Dose Admin Acetaminophen 650 mg 11/03/18 07:33 Tylenol PO Q4H PRN Pain MILD(1-3)/Fever >100.5/[place] Al Hydrox/Mg Hydrox/Simethicone 30 ml 11/03/18 07:33 Alum-Mag Hydrox-Simeth 908-269-33xw/5ml PO Q4H PRN Indigestion Colchicine 0.6 mg 11/03/18 10:00 11/05/18 09:55 Colchicine PO 0.6 mg QDAY JANINE Administration Digoxin 0.25 mg 11/05/18 12:00 11/05/18 12:34 Lanoxin IV 11/06/18 06:01 0.25 mg Q6HR JANINE Administration Famotidine 20 mg 11/03/18 10:00 11/05/18 09:55 Pepcid PO 20 mg BID JANINE Administration Furosemide 40 mg 11/06/18 10:00 Lasix IV DAILY JANINE Diltiazem HCl 100 mg/ Dextrose 100 mls @ 5 mls/hr 11/03/18 06:00 11/04/18 16:00 IV 0 mg/hr DIRECT JANINE 0 mls/hr Infusion Protocol 5 MG/HR Heparin Sodium/Sodium Chloride 25,000 unit in 500 mls @ 30 mls/hr 11/03/18 16:00 11/05/18 09:57 Heparin/ 0.45% Nacl-25,000 Unit/500 Ml IV 1,950 units/hr TITR JANINE 39 mls/hr Administration Protocol 1,500 UNITS/HR Insulin Human Lispro 0 unit 11/05/18 11:30 11/05/18 12:35 Humalog SUB-Q 2 unit ACHS [facility] [place] Administration Protocol Lisinopril 5 mg 11/03/18 10:00 11/05/18 09:55 Zestril PO Not Given QDAY [facility] Metoprolol Tartrate 50 mg 11/04/18 22:00 11/05/18 09:54 Lopressor PO 50 mg BID [facility] Administration Morphine Sulfate 2 mg 11/03/18 07:33 11/04/18 07:20 Morphine IV 2 mg Q4H PRN Administration Pain, Moderate (4-6) Ondansetron HCl 4 mg 11/03/18 07:33 Zofran IV Q8H PRN Nausea And Vomiting Oxycodone/Acetaminophen 1 tab 11/03/18 07:33 11/04/18 00:27 Percocet 5/325 PO 1 tab Q6H PRN Administration Pain, Moderate (4-6) Sodium Chloride 10 ml 11/03/18 10:00 11/05/18 09:54 Sodium Chloride Flush Syringe 10 Ml IV 10 ml BID JANINE Administration Sodium Chloride 10 ml 11/03/18 07:33 Sodium Chloride Flush Syringe 10 Ml IV PRN PRN LINE FLUSH
[2018-11-06] MEDS: LANOXIN IV SCH ×2 (00:08→06:24)
[2018-11-06 05:22] LABS: Alanine Aminotransferase 516 units/L (7-56); Albumin 3.8 g/dL (3.9-5); BUN/Creatinine Ratio 24; Blood Urea Nitrogen 22 mg/dL (9-20); Calcium 8.9 mg/dL (8.4-10.2); Hemolysis Index 8
[2018-11-06] MEDS: HumaLOG SUB-Q SCH ×4 (08:58→22:00)
[2018-11-06] MEDS: LASIX IV SCH (09:28)
[2018-11-06] MEDS: HEPARIN/ 0.45% NACL-25,000 UNIT/500 ML 25,000 UNIT/500 ML BAG IV SCH ×2 (09:28→19:26)
[2018-11-06] MEDS: SODIUM CHLORIDE FLUSH SYRINGE 10 ML IV SCH ×2 (09:29→21:56)
[2018-11-06] MEDS: PEPCID PO SCH ×2 (09:29→21:55)
[2018-11-06] MEDS: ZESTRIL PO SCH (09:29)
[2018-11-06] MEDS: LOPRESSOR PO SCH ×2 (09:29→21:55)
[2018-11-06] MEDS: COLCHICINE PO SCH (09:29)
--- NOTE | 2018-11-06 10:40 | Progress Note ---
Assessment and Plan 57 y/o male with aflutter not rate controlled and per chart history of heart failure. 1. Rate control per cards, now loading with Dig. Do not want Dilt drip back. Not using Amio since LFT's are elevated. Await their evaluation this am. May need to consider cardioversion 2. Anticoagulation 3. BP control 4. Monitor electrolytes, checking mag and phos now. 5. Needs strict I/O given EF of 15% Patient, if not going to be on continuos infusion therapy should be able to be transferred to IM or Tele given stable BP's Subjective Date of service: 11/06/18 Principal diagnosis: HF; AFlutter Interval history: Remains tachycardic. Dig loaded but does not appear to be helping. BP stable Objective - Constitutional Vitals: Vital Signs - 12hr 11/05/18 11/05/18 11/05/18 22:39 22:45 23:00 Temperature Pulse Rate 124 H 123 H 123 H Pulse Rate [ From Monitor] Respiratory 19 17 26 H Rate Blood Pressure 117/85 117/85 110/83 O2 Sat by Pulse 98 98 91 Oximetry 11/05/18 11/05/18 11/05/18 23:15 23:24 23:30 Temperature 98.3 F Pulse Rate 123 H 122 H Pulse Rate [ From Monitor] Respiratory 29 H 15 Rate Blood Pressure 110/83 101/71 O2 Sat by Pulse 99 98 Oximetry 11/05/18 11/06/18 11/06/18 23:46 00:00 00:08 Temperature Pulse Rate 122 H 123 H 123 H Pulse Rate [ 126 H From Monitor] Respiratory 18 27 H Rate Blood Pressure 110/83 110/83 123/83 O2 Sat by Pulse 99 97 Oximetry 11/06/18 11/06/18 11/06/18 00:16 00:30 00:46 Temperature Pulse Rate 123 H 122 H 123 H Pulse Rate [ From Monitor] Respiratory 28 H 15 19 Rate Blood Pressure 101/71 100/83 100/83 O2 Sat by Pulse 96 95 96 Oximetry 11/06/18 11/06/18 11/06/18 01:00 01:16 01:30 Temperature Pulse Rate 123 H 123 H 124 H Pulse Rate [ From Monitor] Respiratory 25 H 37 H 30 H Rate Blood Pressure 91/54 91/54 94/61 O2 Sat by Pulse 93 96 98 Oximetry 11/06/18 11/06/18 11/06/18 01:46 02:00 02:16 Temperature Pulse Rate 123 H 123 H 123 H Pulse Rate [ From Monitor] Respiratory 29 H 19 15 Rate Blood Pressure 94/61 94/61 94/61 O2 Sat by Pulse 98 96 88 Oximetry 11/06/18 11/06/18 11/06/18 02:30 02:46 03:00 Temperature Pulse Rate 122 H 123 H 123 H Pulse Rate [ From Monitor] Respiratory 16 19 14 Rate Blood Pressure 94/61 85/62 104/71 O2 Sat by Pulse 96 98 97 Oximetry 11/06/18 11/06/18 11/06/18 03:12 03:16 03:30 Temperature 98.6 F Pulse Rate 122 H 123 H Pulse Rate [ From Monitor] Respiratory 18 17 Rate Blood Pressure 104/71 102/64 O2 Sat by Pulse 97 95 Oximetry 11/06/18 11/06/18 11/06/18 03:46 04:00 04:16 Temperature Pulse Rate 123 H 123 H 123 H Pulse Rate [ 124 H From Monitor] Respiratory 16 19 14 Rate Blood Pressure 102/64 102/64 96/57 O2 Sat by Pulse 96 94 96 Oximetry 11/06/18 11/06/18 11/06/18 04:30 04:46 05:00 Temperature Pulse Rate 122 H 122 H 122 H Pulse Rate [ From Monitor] Respiratory 24 22 23 Rate Blood Pressure 94/57 94/57 101/75 O2 Sat by Pulse 88 98 96 Oximetry 11/06/18 11/06/18 11/06/18 05:16 05:30 05:46 Temperature Pulse Rate 122 H 121 H 122 H Pulse Rate [ From Monitor] Respiratory 19 17 24 Rate Blood Pressure 101/75 93/68 93/68 O2 Sat by Pulse 96 97 98 Oximetry 11/06/18 11/06/18 11/06/18 06:00 06:16 06:24 Temperature Pulse Rate 121 H 108 H 123 H Pulse Rate [ From Monitor] Respiratory 20 21 Rate Blood Pressure 93/68 98/78 103/82 O2 Sat by Pulse 94 98 Oximetry 11/06/18 11/06/18 11/06/18 06:30 06:46 07:00 Temperature Pulse Rate 123 H 123 H 124 H Pulse Rate [ From Monitor] Respiratory 13 22 21 Rate Blood Pressure 103/82 118/85 118/85 O2 Sat by Pulse 100 98 96 Oximetry 11/06/18 11/06/18 11/06/18 07:16 07:22 07:30 Temperature Pulse Rate 123 H 117 H Pulse Rate [ From Monitor] Respiratory 18 26 H Rate Blood Pressure 119/80 125/83 O2 Sat by Pulse 97 97 95 Oximetry 11/06/18 11/06/18 11/06/18 07:46 08:00 08:16 Temperature 97.8 F Pulse Rate 124 H 113 H 116 H Pulse Rate [ 123 H From Monitor] Respiratory 25 H 26 H 15 Rate Blood Pressure 125/83 117/75 117/75 O2 Sat by Pulse 98 95 100 Oximetry 11/06/18 11/06/18 11/06/18 08:30 08:46 09:00 Temperature Pulse Rate 118 H 124 H 123 H Pulse Rate [ From Monitor] Respiratory 22 20 16 Rate Blood Pressure 119/83 119/83 119/83 O2 Sat by Pulse 100 86 93 Oximetry 11/06/18 11/06/18 11/06/18 09:16 09:29 09:30 Temperature Pulse Rate 123 H 123 H 123 H Pulse Rate [ From Monitor] Respiratory 20 16 Rate Blood Pressure 113/74 113/74 107/83 O2 Sat by Pulse 92 91 Oximetry 11/06/18 11/06/18 09:46 10:00 Temperature Pulse Rate 124 H 125 H Pulse Rate [ From Monitor] Respiratory 25 H 24 Rate Blood Pressure 107/83 117/87 O2 Sat by Pulse 98 98 Oximetry General appearance: Present: no acute distress - EENT Eyes: PERRL, EOM intact ENT: hearing intact, clear oral mucosa - Neck Neck: supple, normal ROM - Respiratory Respiratory effort: normal Respiratory: bilateral: CTA - Cardiovascular Rhythm: other (tachycardic) - Labs CBC & Chem 7: 11/05/18 06:11 11/06/18 04:10 Labs: Abnormal lab results 11/05/18 11/05/18 11/05/18 Range/Units 08:38 11:54 13:19 Heparin Anti-Xa Level 0.17 L (0.3-0.7) U.I./ml Sodium (137-145) mmol/L Carbon Dioxide (22-30) mmol/L BUN (9-20) mg/dL Glucose (75-100) mg/dL POC Glucose 161 H 190 H (70-105) AST (5-40) units/L ALT (7-56) units/L Albumin (3.9-5) g/dL 11/05/18 11/05/18 11/06/18 Range/Units 17:07 21:37 04:10 Heparin Anti-Xa Level (0.3-0.7) U.I./ml Sodium 136 L (137-145) mmol/L Carbon Dioxide 19 L (22-30) mmol/L BUN 22 H (9-20) mg/dL Glucose 127 H (75-100) mg/dL POC Glucose 165 H 157 H (70-105) AST 226 H (5-40) units/L ALT 516 H (7-56) units/L Albumin 3.8 L (3.9-5) g/dL 11/06/18 Range/Units 07:51 Heparin Anti-Xa Level (0.3-0.7) U.I./ml Sodium (137-145) mmol/L Carbon Dioxide (22-30) mmol/L BUN (9-20) mg/dL Glucose (75-100) mg/dL POC Glucose 117 H (70-105) AST (5-40) units/L ALT (7-56) units/L Albumin (3.9-5) g/dL Medications & Allergies - Medications Allergies/Adverse Reactions: Allergies No Known Allergies Allergy (Verified 04/13/18 10:20) Home Medications: Home Medications Medication Instructions Recorded Confirmed Last Taken Type Hydrocodone Bit/Acetaminophen 1 each PO BID PRN #20 tablet 05/05/13 Unknown Rx [Lortab 7.5-500 mg] Prednisone 40 mg PO QDAY #10 tablet 05/05/13 Unknown Rx Cyclobenzaprine HCl [FLEXERIL] 10 mg PO TID #12 tablet 07/07/13 Unknown Rx Sulfamethoxazole/Trimethoprim 1 each PO Q12H #14 tablet 12/14/13 Unknown Rx [Bactrim Ds] cephALEXin [Keflex] 500 mg PO Q8H #21 capsule 12/14/13 Unknown Rx oxyCODONE /ACETAMINOPHEN [Percocet 1 tab PO Q4-6H PRN #20 tablet 12/14/13 Unknown Rx 5/325 mg] Allopurinol [Zyloprim] 100 mg PO QDAY #30 tablet 02/25/14 Unknown Rx Cyclobenzaprine [Flexeril] 10 mg PO TID PRN #30 tablet 08/02/15 Unknown Rx Meloxicam [Mobic] 15 mg PO DAILY #30 tablet 09/12/15 Unknown Rx traMADol [Ultram 50 MG tab] 50 mg PO Q4HR PRN #20 tablet 09/12/15 Unknown Rx HYDROcodone/APAP 10-325 [[place] 1 each PO Q6HR PRN #14 tablet 05/14/17 Unknown Rx 10-325 mg TAB] Ibuprofen [Motrin 800 MG tab] 800 mg PO Q8HR PRN #15 tablet 05/14/17 Unknown Rx Colchicine 0.6 mg PO DAILY #14 capsule 09/29/17 Unknown Rx HYDROcodone/APAP 7.5-325 [[place] 1 each PO Q6HR PRN #14 tablet 09/29/17 Unknown Rx 7.5-325 mg TAB] Indomethacin 50 mg PO Q8H #30 capsule 09/29/17 Unknown Rx predniSONE [Deltasone] 40 mg PO QDAY #5 tab 09/29/17 Unknown Rx Acetaminophen/Codeine [Tylenol 1 tab PO Q6H PRN #12 tab 02/02/18 Unknown Rx /Codeine # 3 tab] Ibuprofen 800 mg PO TID PRN #15 tablet 02/02/18 Unknown Rx methylPREDNISolone [Medrol Dose 4 mg PO DAILY 6 Days #1 pkg 02/02/18 Unknown Rx Andrea] Acetaminophen/Codeine [Tylenol 1 tab PO Q6H PRN #12 tab 02/23/18 Unknown Rx /Codeine # 3 tab] Colchicine 0.6 mg PO DAILY #14 capsule 02/23/18 Unknown Rx Ibuprofen [Motrin] 600 mg PO Q8H PRN #30 tablet 02/23/18 Unknown Rx Prednisone [predniSONE 10 mg 10 mg PO .TAPER #1 tab.ds.pk 02/23/18 Unknown Rx (6-Day Pack, 21 Tabs)] Furosemide [Lasix] 20 mg PO QDAY #7 tablet 04/13/18 Unknown Rx Indomethacin 50 mg PO Q8H #15 capsule 04/13/18 Unknown Rx Prednisone [predniSONE 10 mg 10 mg PO .TAPER #1 tab.ds.pk 04/13/18 Unknown Rx (6-Day Pack, 21 Tabs)] Active Medications: Generic Name Dose Route Start Last Admin Trade Name Freq PRN Reason Stop Dose Admin Acetaminophen 650 mg 11/03/18 07:33 Tylenol PO Q4H PRN Pain MILD(1-3)/Fever >100.5/[place] Al Hydrox/Mg Hydrox/Simethicone 30 ml 11/03/18 07:33 Alum-Mag Hydrox-Simeth 026-035-99oa/5ml PO Q4H PRN Indigestion Colchicine 0.6 mg 11/03/18 10:00 11/06/18 09:29 Colchicine PO 0.6 mg QDAY JANINE Administration Famotidine 20 mg 11/03/18 10:00 11/06/18 09:29 Pepcid PO 20 mg BID JANINE Administration Furosemide 40 mg 11/06/18 10:00 11/06/18 09:28 Lasix IV 40 mg DAILY JANINE Administration Diltiazem HCl 100 mg/ Dextrose 100 mls @ 5 mls/hr 11/03/18 06:00 11/04/18 16:00 IV 0 mg/hr DIRECT JANINE 0 mls/hr Infusion Protocol 5 MG/HR Heparin Sodium/Sodium Chloride 25,000 unit in 500 mls @ 30 mls/hr 11/03/18 16:00 11/06/18 09:28 Heparin/ 0.45% Nacl-25,000 Unit/500 Ml IV 2,350 units/hr TITR JANINE 47 mls/hr Administration Protocol 1,500 UNITS/HR Insulin Human Lispro 0 unit 11/05/18 11:30 11/06/18 08:58 Humalog SUB-Q Not Given ACHS [facility] Protocol Lisinopril 5 mg 11/03/18 10:00 11/06/18 09:29 Zestril PO 5 mg QDAY JANINE Administration Metoprolol Tartrate 50 mg 11/04/18 22:00 11/06/18 09:29 Lopressor PO 50 mg BID JANINE Administration Morphine Sulfate 2 mg 11/03/18 07:33 11/04/18 07:20 Morphine IV 2 mg Q4H PRN Administration Pain, Moderate (4-6) Ondansetron HCl 4 mg 11/03/18 07:33 Zofran IV Q8H PRN Nausea And Vomiting Oxycodone/Acetaminophen 1 tab 11/03/18 07:33 11/04/18 00:27 Percocet 5/325 PO 1 tab Q6H PRN Administration Pain, Moderate (4-6) Sodium Chloride 10 ml 11/03/18 10:00 11/06/18 09:29 Sodium Chloride Flush Syringe 10 Ml IV 10 ml BID JANINE Administration Sodium Chloride 10 ml 11/03/18 07:33 Sodium Chloride Flush Syringe 10 Ml IV PRN PRN LINE FLUSH
--- NOTE | 2018-11-06 12:14 | Progress Note ---
Assessment and Plan Persistent atrial flutter Consider increasing metoprolol to 3 times a day Continue heparin drip If patient does not convert we'll likely consider JUSTINE/cardioversion Thursday or Thursday HFrEF 15-20% Continue diuresis Monitor strict I's and O continue metoprolol/lisinopril Hypertension Controlled Noncompliant Diabetes mellitus Gout Subjective Date of service: 11/06/18 Principal diagnosis: HF; AFlutter Interval history: Patient sitting in bed without any complaints. Reports that his shortness of breath is improved. Objective Vital Signs Temp Pulse Pulse Resp BP Pulse Ox 11/06/18 11:25 97.8 F 11/06/18 11:16 125 H 11 L 109/85 95 11/06/18 11:00 125 H 15 109/85 99 11/06/18 10:46 123 H 22 120/84 97 11/06/18 10:30 124 H 14 117/87 98 11/06/18 10:16 125 H 16 117/87 95 11/06/18 10:00 125 H 24 117/87 98 11/06/18 09:46 124 H 25 H 107/83 98 11/06/18 09:30 123 H 16 107/83 91 11/06/18 09:29 123 H 113/74 11/06/18 09:16 123 H 20 113/74 92 11/06/18 09:00 123 H 16 119/83 93 11/06/18 08:46 124 H 20 119/83 86 11/06/18 08:30 118 H 22 119/83 100 11/06/18 08:16 116 H 15 117/75 100 11/06/18 08:00 97.8 F 113 H 123 H 26 H 117/75 95 11/06/18 07:46 124 H 25 H 125/83 98 11/06/18 07:30 117 H 26 H 125/83 95 11/06/18 07:22 97 11/06/18 07:16 123 H 18 119/80 97 11/06/18 07:00 124 H 21 118/85 96 11/06/18 06:46 123 H 22 118/85 98 11/06/18 06:30 123 H 13 103/82 100 11/06/18 06:24 123 H 103/82 11/06/18 06:16 108 H 21 98/78 98 11/06/18 06:00 121 H 20 93/68 94 11/06/18 05:46 122 H 24 93/68 98 11/06/18 05:30 121 H 17 93/68 97 11/06/18 05:16 122 H 19 101/75 96 11/06/18 05:00 122 H 23 101/75 96 11/06/18 04:46 122 H 22 94/57 98 11/06/18 04:30 122 H 24 94/57 88 11/06/18 04:16 123 H 14 96/57 96 11/06/18 04:00 123 H 124 H 19 102/64 94 11/06/18 03:46 123 H 16 102/64 96 11/06/18 03:30 123 H 17 102/64 95 11/06/18 03:16 122 H 18 104/71 97 11/06/18 03:12 98.6 F 11/06/18 03:00 123 H 14 104/71 97 11/06/18 02:46 123 H 19 85/62 98 11/06/18 02:30 122 H 16 94/61 96 11/06/18 02:16 123 H 15 94/61 88 11/06/18 02:00 123 H 19 94/61 96 11/06/18 01:46 123 H 29 H 94/61 98 11/06/18 01:30 124 H 30 H 94/61 98 11/06/18 01:16 123 H 37 H 91/54 96 11/06/18 01:00 123 H 25 H 91/54 93 11/06/18 00:46 123 H 19 100/83 96 11/06/18 00:30 122 H 15 100/83 95 11/06/18 00:16 123 H 28 H 101/71 96 11/06/18 00:08 123 H 123/83 11/06/18 00:00 123 H 126 H 27 H 110/83 97 11/05/18 23:46 122 H 18 110/83 99 11/05/18 23:30 122 H 15 101/71 98 11/05/18 23:24 98.3 F 11/05/18 23:15 123 H 29 H 110/83 99 11/05/18 23:00 123 H 26 H 110/83 91 11/05/18 22:45 123 H 17 117/85 98 11/05/18 22:39 124 H 19 117/85 98 11/05/18 22:30 125 H 28 H 117/85 89 11/05/18 22:15 125 H 22 112/80 99 11/05/18 22:06 125 H 112/80 11/05/18 22:01 125 H 23 112/80 97 11/05/18 21:45 124 H 27 H 117/82 95 11/05/18 21:31 125 H 15 120/83 72 L 11/05/18 21:15 124 H 25 H 120/83 94 11/05/18 21:01 125 H 24 120/83 96 11/05/18 20:45 124 H 25 H 117/81 96 11/05/18 20:30 125 H 29 H 117/81 95 11/05/18 20:15 126 H 31 H 121/80 89 11/05/18 20:00 125 H 126 H 21 121/80 97 11/05/18 19:54 98.6 F 11/05/18 19:45 125 H 13 115/76 99 11/05/18 19:30 125 H 17 115/76 96 11/05/18 19:26 97 11/05/18 19:15 125 H 15 136/79 95 11/05/18 19:01 125 H 15 127/77 96 11/05/18 18:45 124 H 34 H 136/79 99 11/05/18 18:30 124 H 14 114/80 98 11/05/18 18:15 125 H 22 130/88 78 L 11/05/18 18:07 124 H 130/88 11/05/18 18:01 124 H 14 133/73 93 11/05/18 17:45 124 H 13 90/49 91 11/05/18 17:31 124 H 19 90/49 89 11/05/18 17:15 123 H 22 103/81 91 11/05/18 17:01 124 H 26 H 118/58 87 11/05/18 16:45 123 H 21 124/76 96 11/05/18 16:31 124 H 24 124/76 96 11/05/18 16:15 120 H 28 H 113/83 100 11/05/18 16:01 125 H 13 121/83 84 11/05/18 16:00 98.0 F 26 H 97 11/05/18 15:45 123 H 17 107/60 80 L 11/05/18 15:31 124 H 17 105/55 88 11/05/18 15:15 125 H 32 H 105/55 94 11/05/18 15:00 123 H 27 H 121/76 96 11/05/18 14:45 124 H 26 H 116/77 100 11/05/18 14:31 123 H 16 116/77 98 11/05/18 14:15 124 H 12 115/62 99 11/05/18 14:00 124 H 27 H 108/55 100 11/05/18 13:45 124 H 14 104/55 97 11/05/18 13:31 123 H 31 H 112/63 99 11/05/18 13:15 123 H 27 H 114/67 100 11/05/18 13:01 123 H 28 H 114/67 97 11/05/18 12:45 123 H 14 103/73 97 11/05/18 12:34 124 H 100/70 11/05/18 12:31 126 H 29 H 100/70 95 11/05/18 12:15 124 H 8 L 106/47 91 - Physical Examination General: No Apparent Distress HEENT: Positive: PERRL, Normocephaly, Mucus Membranes Moist Neck: Positive: neck supple, trachea midline Cardiac: Positive: Irregularly Regular, Tachycardia Lungs: Positive: Decreased Breath Sounds Neuro: Positive: Grossly Intact Abdomen: Positive: Soft. Negative: Tender Skin: Negative: Rash Musculoskeletal: No Pain Extremities: Present: edema (trace BLE) - Labs and Meds Cardiac Enzymes 11/06/18 Range/Units 04:10 AST 226 H (5-40) units/L Comprehensive Metabolic Panel 11/06/18 Range/Units 04:10 Sodium 136 L (137-145) mmol/L Potassium 4.4 (3.6-5.0) mmol/L Chloride 103.0 (98-107) mmol/L Carbon Dioxide 19 L (22-30) mmol/L BUN 22 H (9-20) mg/dL Creatinine 0.9 (0.8-1.5) mg/dL Glucose 127 H (75-100) mg/dL Calcium 8.9 (8.4-10.2) mg/dL AST 226 H (5-40) units/L ALT 516 H (7-56) units/L Alkaline Phosphatase 98 (35-129) units/L Total Protein 7.0 (6.3-8.2) g/dL Albumin 3.8 L (3.9-5) g/dL - Imaging and Cardiology EKG: report reviewed, image reviewed Echo: report reviewed Cardiac cath: report reviewed ([place] 04/2018 normal coronaries)
--- NOTE | 2018-11-06 13:19 | Progress Note ---
Assessment and Plan Assessment and plan: Persistent atrial fibrillation - Cardiology consult appreciated - Patient was on Cardizem drip and patient is off cardizem, on metoprolol for rate control - No amiodarone because of abnormal LFTs - IF not controlled Cardiology is considering JUSTINE/cardioversion Thursday or Thursday - On heparin drip, will change to OAC at discharge Acute on chronic systolic CHF exacerbation - EF 15-20% - Patient is on IV Lasix and decreased to once a day Hypertension - Controlled Diabetes mellitus with hyperglycemia - Sliding insulin, ADA diet, Accu-Chek, adjust insulin as needed Gout - not in flare up DVT prophylaxis - On Lovenox Disposition - continue ICU care History Interval history: Patient was seen and evaluated this morning, patient said he is feeling well, no complaints. Hospitalist Physical - Physical exam Narrative exam: Not in cardiopulmonary distress. The patient appeared well nourished and normally developed. Vital signs as documented. Head exam is unremarkable. No scleral icterus . Neck is without jugular venous distension, thyromegaly, or carotid bruits. Lungs are clear to auscultation. Cardiac exam reveals regular rate and Rhythm. Tachycardia. Abdominal exam reveals normal bowel sounds. Extremities are nonedematous and both femoral and pedal pulses are normal. 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 - Constitutional Vitals: Temp Pulse Resp BP Pulse Ox 97.8 F 124 H 24 105/65 95 11/06/18 11:25 11/06/18 12:00 11/06/18 12:00 11/06/18 12:00 11/06/18 12:00 General appearance: Present: no acute distress Results - Labs CBC & Chem 7: 11/05/18 06:11 11/06/18 04:10 Labs: Laboratory Last Values WBC 12.1 K/mm3 (4.5-11.0) H 11/05/18 06:11 RBC 4.22 M/mm3 (3.65-5.03) 11/05/18 06:11 Hgb 11.1 gm/dl (11.8-15.2) L 11/05/18 06:11 Hct 34.9 % (35.5-45.6) L 11/05/18 06:11 MCV 83 fl (84-94) L 11/05/18 06:11 MCH 26 pg (28-32) L 11/05/18 06:11 MCHC 32 % (32-34) 11/05/18 06:11 RDW 17.4 % (13.2-15.2) H 11/05/18 06:11 Plt Count 252 K/mm3 (140-440) 11/05/18 06:11 Lymph % (Auto) 17.0 % (13.4-35.0) 11/05/18 06:11 Delta % (Auto) 8.0 % (0.0-7.3) H 11/05/18 06:11 Eos % (Auto) 1.0 % (0.0-4.3) 11/05/18 06:11 Baso % (Auto) 0.9 % (0.0-1.8) 11/05/18 06:11 Lymph # 2.1 K/mm3 (1.2-5.4) 11/05/18 06:11 Delta # 1.0 K/mm3 (0.0-0.8) H 11/05/18 06:11 Eos # 0.1 K/mm3 (0.0-0.4) 11/05/18 06:11 Baso # 0.1 K/mm3 (0.0-0.1) 11/05/18 06:11 Seg Neutrophils % 73.1 % (40.0-70.0) H 11/05/18 06:11 Seg Neutrophils # 8.8 K/mm3 (1.8-7.7) H 11/05/18 06:11 PT 16.7 Sec. (12.2-14.9) H 11/03/18 14:29 INR 1.27 (0.87-1.13) H 11/03/18 14:29 APTT 27.8 Sec. (24.2-36.6) 11/03/18 14:29 D-Dimer 1464.46 ng/mlDDU (0-234) H 11/03/18 02:37 Heparin Anti-Xa Level 0.43 U.I./ml (0.3-0.7) 11/06/18 04:10 Sodium 136 mmol/L (137-145) L 11/06/18 04:10 Potassium 4.4 mmol/L (3.6-5.0) 11/06/18 04:10 Chloride 103.0 mmol/L (98-107) 11/06/18 04:10 Carbon Dioxide 19 mmol/L (22-30) L 11/06/18 04:10 Anion Gap 18 mmol/L 11/06/18 04:10 BUN 22 mg/dL (9-20) H 11/06/18 04:10 Creatinine 0.9 mg/dL (0.8-1.5) 11/06/18 04:10 Estimated GFR > 60 ml/min 11/06/18 04:10 BUN/Creatinine Ratio 24 % 11/06/18 04:10 Glucose 127 mg/dL (75-100) H 11/06/18 04:10 POC Glucose 173 (70-105) H 11/06/18 11:21 Calcium 8.9 mg/dL (8.4-10.2) 11/06/18 04:10 Phosphorus 2.70 mg/dL (2.5-4.5) 11/06/18 04:10 Magnesium 2.20 mg/dL (1.7-2.3) 11/06/18 04:10 Total Bilirubin 0.90 mg/dL (0.1-1.2) 11/06/18 04:10 Direct Bilirubin < 0.2 mg/dL (0-0.2) 11/03/18 08:45 Indirect Bilirubin 0.4 mg/dL 11/03/18 08:45 AST 226 units/L (5-40) H 11/06/18 04:10 ALT 516 units/L (7-56) H 11/06/18 04:10 Alkaline Phosphatase 98 units/L (35-129) 11/06/18 04:10 Troponin T < 0.010 ng/mL (0.00-0.029) 11/03/18 05:35 Total Protein 7.0 g/dL (6.3-8.2) 11/06/18 04:10 Albumin 3.8 g/dL (3.9-5) L 11/06/18 04:10 Albumin/Globulin Ratio 1.2 % 11/06/18 04:10 TSH 2.950 mlU/mL (0.270-4.200) 11/03/18 02:39 Free T4 1.30 ng/dL (0.76-1.46) 11/03/18 02:39 Urine Color Yellow (Yellow) 11/03/18 17:28 Urine Turbidity Clear (Clear) 11/03/18 17:28 Urine pH 5.0 (5.0-7.0) 11/03/18 17:28 Ur Specific [place] 1.030 (1.003-1.030) 11/03/18 17:28 Urine Protein <15 mg/dl mg/dL (Negative) 11/03/18 17:28 Urine Glucose (UA) Neg mg/dL (Negative) 11/03/18 17:28 Urine Ketones Neg mg/dL (Negative) 11/03/18 17:28 Urine Blood Neg (Negative) 11/03/18 17:28 Urine Nitrite Neg (Negative) 11/03/18 17:28 Urine Bilirubin Neg (Negative) 11/03/18 17: Urine Urobilinogen < 2.0 mg/dL (<2.0) 11/03/18 17:28 Ur Leukocyte Esterase Neg (Negative) 11/03/18 17:28 Urine WBC (Auto) 4.0 /HPF (0.0-6.0) 11/03/18 17:28 Urine RBC (Auto) 2.0 /HPF (0.0-6.0) 11/03/18 17:28 Digoxin 0.9 ng/mL (0.9-2.0) 11/06/18 04:10 Urine Opiates Screen Presumptive negative 11/03/18 17:28 Urine Methadone Screen Presumptive negative 11/03/18 17:28 Ur Barbiturates Screen Presumptive negative 11/03/18 17:28 Ur Phencyclidine Scrn Presumptive negative 11/03/18 17:28 Ur Amphetamines Screen Presumptive negative 11/03/18 17:28 U Benzodiazepines Scrn Presumptive negative 11/03/18 17:28 Urine Cocaine Screen Presumptive negative 11/03/18 17:28 U Marijuana (THC) Screen Presumptive negative 11/03/18 17:28 Drugs of Abuse Note Disclamer 11/03/18 17:28 Active Medications - Current Medications Current Medications: Generic Name Dose Route Start Last Admin Trade Name Freq PRN Reason Stop Dose Admin Acetaminophen 650 mg 11/03/18 07:33 Tylenol PO Q4H PRN Pain MILD(1-3)/Fever >100.5/[place] Al Hydrox/Mg Hydrox/Simethicone 30 ml 11/03/18 07:33 Alum-Mag Hydrox-Simeth 571-793-96gm/5ml PO Q4H PRN Indigestion Colchicine 0.6 mg 11/03/18 10:00 11/06/18 09:29 Colchicine PO 0.6 mg QDAY JANINE Administration Famotidine 20 mg 11/03/18 10:00 11/06/18 09:29 Pepcid PO 20 mg BID JANINE Administration Furosemide 40 mg 11/06/18 10:00 11/06/18 09:28 Lasix IV 40 mg DAILY JANINE Administration Diltiazem HCl 100 mg/ Dextrose 100 mls @ 5 mls/hr 11/03/18 06:00 11/04/18 16:00 IV 0 mg/hr DIRECT JANINE 0 mls/hr Infusion Protocol 5 MG/HR Heparin Sodium/Sodium Chloride 25,000 unit in 500 mls @ 30 mls/hr 11/03/18 16:00 11/06/18 09:28 Heparin/ 0.45% Nacl-25,000 Unit/500 Ml IV 2,350 units/hr TITR JANINE 47 mls/hr Administration Protocol 1,500 UNITS/HR Insulin Human Lispro 0 unit 11/05/18 11:30 11/06/18 11:53 Humalog SUB-Q 2 unit ACHS JANINE Administration Protocol Lisinopril 5 mg 11/03/18 10:00 11/06/18 09:29 Zestril PO 5 mg QDAY JANINE Administration Metoprolol Tartrate 50 mg 11/04/18 22:00 11/06/18 09:29 Lopressor PO 50 mg BID JANINE Administration Morphine Sulfate 2 mg 11/03/18 07:33 11/04/18 07:20 Morphine IV 2 mg Q4H PRN Administration Pain, Moderate (4-6) Ondansetron HCl 4 mg 11/03/18 07:33 Zofran IV Q8H PRN Nausea And Vomiting Oxycodone/Acetaminophen 1 tab 11/03/18 07:33 11/04/18 00:27 Percocet 5/325 PO 1 tab Q6H PRN Administration Pain, Moderate (4-6) Sodium Chloride 10 ml 11/03/18 10:00 11/06/18 09:29 Sodium Chloride Flush Syringe 10 Ml IV 10 ml BID JANINE Administration Sodium Chloride 10 ml 11/03/18 07:33 Sodium Chloride Flush Syringe 10 Ml IV PRN PRN LINE FLUSH
[2018-11-06] MEDS: PERCOCET 5/325 PO PRN (21:59)
[2018-11-07 04:49] LABS: Hematocrit 35.6 % (35.5-45.6); Hemoglobin 11.4 gm/dl (11.8-15.2)
[2018-11-07] MEDS: HEPARIN/ 0.45% NACL-25,000 UNIT/500 ML 25,000 UNIT/500 ML BAG IV SCH ×2 (06:13→17:21)
--- NOTE | 2018-11-07 08:49 | Progress Note ---
Assessment and Plan 57 y/o male with aflutter not rate controlled and per chart history of heart failure. 1. Cards considering TID BB. BP has been stable. Will continue to monitor 2. Anticoagulation 3. BP control 4. Monitor electrolytes 5. Needs strict I/O given EF of 15% Patient, if not going to be on continuos infusion therapy should be able to be transferred to IM or [facility] given stable BP's Subjective Date of service: 11/07/18 Principal diagnosis: HF; AFlutter Interval history: No acute events overnight. Remains tachycardic. Objective - Constitutional Vitals: Vital Signs - 12hr 11/06/18 11/06/18 11/06/18 21:00 21:55 22:00 Temperature Pulse Rate 127 H 122 H 127 H Pulse Rate [ From Monitor] Respiratory 30 H 14 Rate Blood Pressure 102/81 147/51 102/81 O2 Sat by Pulse 95 100 Oximetry 11/06/18 11/06/18 11/06/18 22:03 23:00 23:02 Temperature Pulse Rate 127 H 126 H Pulse Rate [ From Monitor] Respiratory 25 H 16 Rate Blood Pressure 106/80 100/70 100/70 O2 Sat by Pulse 99 99 Oximetry 11/07/18 11/07/18 11/07/18 00:00 01:00 02:00 Temperature 97.5 F L Pulse Rate 125 H 123 H 124 H Pulse Rate [ 124 H From Monitor] Respiratory 26 H 20 16 Rate Blood Pressure 104/71 80/65 80/65 O2 Sat by Pulse 96 97 98 Oximetry 11/07/18 11/07/18 11/07/18 03:00 04:00 05:00 Temperature 98.3 F Pulse Rate 122 H 121 H 123 H Pulse Rate [ 122 H From Monitor] Respiratory 18 23 19 Rate Blood Pressure 119/82 95/63 100/75 O2 Sat by Pulse 96 97 100 Oximetry 11/07/18 11/07/18 11/07/18 06:00 07:00 07:46 Temperature Pulse Rate 124 H 124 H 126 H Pulse Rate [ From Monitor] Respiratory 24 22 Rate Blood Pressure 113/84 117/82 O2 Sat by Pulse 93 97 Oximetry 11/07/18 11/07/18 11/07/18 07:49 08:00 08:06 Temperature Pulse Rate 125 H Pulse Rate [ 126 H From Monitor] Respiratory 23 13 Rate Blood Pressure 115/79 O2 Sat by Pulse 96 100 99 Oximetry - Labs CBC & Chem 7: 11/07/18 03:44 11/06/18 04:10 Labs: Abnormal lab results 11/06/18 11/06/18 11/06/18 Range/Units 11:21 17:01 22:11 Hgb (11.8-15.2) gm/dl Heparin Anti-Xa Level (0.3-0.7) U.I./ml POC Glucose 173 H 197 H 116 H (70-105) 11/07/18 11/07/18 11/07/18 Range/Units 03:44 03:44 08:29 Hgb 11.4 L (11.8-15.2) gm/dl Heparin Anti-Xa Level 0.27 L (0.3-0.7) U.I./ml POC Glucose 119 H (70-105) Medications & Allergies - Medications Allergies/Adverse Reactions: Allergies No Known Allergies Allergy (Verified 04/13/18 10:20) Home Medications: Home Medications Medication Instructions Recorded Confirmed Last Taken Type Hydrocodone Bit/Acetaminophen 1 each PO BID PRN #20 tablet 05/05/13 Unknown Rx [Lortab 7.5-500 mg] Prednisone 40 mg PO QDAY #10 tablet 05/05/13 Unknown Rx Cyclobenzaprine HCl [FLEXERIL] 10 mg PO TID #12 tablet 07/07/13 Unknown Rx Sulfamethoxazole/Trimethoprim 1 each PO Q12H #14 tablet 12/14/13 Unknown Rx [Bactrim Ds] cephALEXin [Keflex] 500 mg PO Q8H #21 capsule 12/14/13 Unknown Rx oxyCODONE /ACETAMINOPHEN [Percocet 1 tab PO Q4-6H PRN #20 tablet 12/14/13 Unknown Rx 5/325 mg] Allopurinol [Zyloprim] 100 mg PO QDAY #30 tablet 02/25/14 Unknown Rx Cyclobenzaprine [Flexeril] 10 mg PO TID PRN #30 tablet 08/02/15 Unknown Rx Meloxicam [Mobic] 15 mg PO DAILY #30 tablet 09/12/15 Unknown Rx traMADol [Ultram 50 MG tab] 50 mg PO Q4HR PRN #20 tablet 09/12/15 Unknown Rx HYDROcodone/APAP 10-325 [[place] 1 each PO Q6HR PRN #14 tablet 05/14/17 Unknown Rx 10-325 mg TAB] Ibuprofen [Motrin 800 MG tab] 800 mg PO Q8HR PRN #15 tablet 05/14/17 Unknown Rx Colchicine 0.6 mg PO DAILY #14 capsule 09/29/17 Unknown Rx HYDROcodone/APAP 7.5-325 [[place] 1 each PO Q6HR PRN #14 tablet 09/29/17 Unknown Rx 7.5-325 mg TAB] Indomethacin 50 mg PO Q8H #30 capsule 09/29/17 Unknown Rx predniSONE [Deltasone] 40 mg PO QDAY #5 tab 09/29/17 Unknown Rx Acetaminophen/Codeine [Tylenol 1 tab PO Q6H PRN #12 tab 02/02/18 Unknown Rx /Codeine # 3 tab] Ibuprofen 800 mg PO TID PRN #15 tablet 02/02/18 Unknown Rx methylPREDNISolone [Medrol Dose 4 mg PO DAILY 6 Days #1 pkg 02/02/18 Unknown Rx Andrea] Acetaminophen/Codeine [Tylenol 1 tab PO Q6H PRN #12 tab 02/23/18 Unknown Rx /Codeine # 3 tab] Colchicine 0.6 mg PO DAILY #14 capsule 02/23/18 Unknown Rx Ibuprofen [Motrin] 600 mg PO Q8H PRN #30 tablet 02/23/18 Unknown Rx Prednisone [predniSONE 10 mg 10 mg PO .TAPER #1 tab.ds.pk 02/23/18 Unknown Rx (6-Day Pack, 21 Tabs)] Furosemide [Lasix] 20 mg PO QDAY #7 tablet 04/13/18 Unknown Rx Indomethacin 50 mg PO Q8H #15 capsule 04/13/18 Unknown Rx Prednisone [predniSONE 10 mg 10 mg PO .TAPER #1 tab.ds.pk 04/13/18 Unknown Rx (6-Day Pack, 21 Tabs)] Active Medications: Generic Name Dose Route Start Last Admin Trade Name Freq PRN Reason Stop Dose Admin Acetaminophen 650 mg 11/03/18 07:33 Tylenol PO Q4H PRN Pain MILD(1-3)/Fever >100.5/[place] Al Hydrox/Mg Hydrox/Simethicone 30 ml 11/03/18 07:33 Alum-Mag Hydrox-Simeth [phone]/5ml PO Q4H PRN Indigestion Colchicine 0.6 mg 11/03/18 10:00 11/06/18 09:29 Colchicine PO 0.6 mg QDAY JANINE Administration Famotidine 20 mg 11/03/18 10:00 11/06/18 21:55 Pepcid PO 20 mg BID JANINE Administration Furosemide 40 mg 11/06/18 10:00 11/06/18 09:28 Lasix IV 40 mg DAILY JANINE Administration Diltiazem HCl 100 mg/ Dextrose 100 mls @ 5 mls/hr 11/03/18 06:00 11/04/18 16:00 IV 0 mg/hr DIRECT JANINE 0 mls/hr Infusion Protocol 5 MG/HR Heparin Sodium/Sodium Chloride 25,000 unit in 500 mls @ 30 mls/hr 11/03/18 16:00 11/07/18 06:13 Heparin/ 0.45% Nacl-25,000 Unit/500 Ml IV 2,500 units/hr TITR JANINE 50 mls/hr Administration Protocol 1,500 UNITS/HR Insulin Human Lispro 0 unit 11/05/18 11:30 11/06/18 22:00 Humalog SUB-Q Not Given ACHS [facility] Protocol Lisinopril 5 mg 11/03/18 10:00 11/06/18 09:29 Zestril PO 5 mg QDAY [facility] Administration Metoprolol Tartrate 50 mg 11/04/18 22:00 11/06/18 21:55 Lopressor PO 50 mg BID JANINE Administration Morphine Sulfate 2 mg 11/03/18 07:33 11/04/18 07:20 Morphine IV 2 mg Q4H PRN Administration Pain, Moderate (4-6) Ondansetron HCl 4 mg 11/03/18 07:33 Zofran IV Q8H PRN Nausea And Vomiting Oxycodone/Acetaminophen 1 tab 11/03/18 07:33 11/06/18 21:59 Percocet 5/325 PO 1 tab Q6H PRN Administration Pain, Moderate (4-6) Sodium Chloride 10 ml 11/03/18 10:00 11/06/18 21:56 Sodium Chloride Flush Syringe 10 Ml IV 10 ml BID JANINE Administration Sodium Chloride 10 ml 11/03/18 07:33 Sodium Chloride Flush Syringe 10 Ml IV PRN PRN LINE FLUSH
[2018-11-07] MEDS: HumaLOG SUB-Q SCH ×4 (09:23→22:05)
[2018-11-07] MEDS: LASIX IV SCH (09:42)
[2018-11-07] MEDS: PEPCID PO SCH ×2 (09:42→22:19)
[2018-11-07] MEDS: ZESTRIL PO SCH (09:42)
[2018-11-07] MEDS: LOPRESSOR PO SCH ×2 (09:42→22:19)
[2018-11-07] MEDS: SODIUM CHLORIDE FLUSH SYRINGE 10 ML IV SCH (09:43)
[2018-11-07] MEDS: COLCHICINE PO SCH (09:43)
--- NOTE | 2018-11-07 10:34 | Progress Note ---
Assessment and Plan Assessment and plan: Persistent atrial fibrillation with RVR -off cardizem, -on metoprolol, rate uncontrolled -No amiodarone because of abnormal LFTs -Cardiology is considering JUSTINE/cardioversion Thursday or Thursday if rate still uncontrolled -On heparin drip, will change to OAC at discharge Acute on chronic systolic CHF exacerbation with EF 15-20% -Improved -cont IV Lasix once a day, BB and ACEI Hypertension - Controlled Diabetes mellitus type 2 -Controlled on current insulin regimen, adjust as needed Gout -Stable -We will hold home colchicine due to the abnormal liver function test levels -Continue allopurinol instead. Transaminitis -ALT>AST -We will check hepatitis panel Disposition: -continue ICU care. Discharge per cardiology History Interval history: Patient has no new complaints today. He denies chest pain or shortness of breath. Hospitalist Physical - Constitutional Vitals: Temp Pulse Resp BP Pulse Ox 97.9 F 126 H 22 118/85 98 11/07/18 08:00 11/07/18 10:00 11/07/18 10:00 11/07/18 10:00 11/07/18 10:00 General appearance: Present: no acute distress - EENT Eyes: Present: PERRL, EOM intact ENT: hearing intact, clear oral mucosa - Neck Neck: Present: supple - Respiratory Respiratory effort: normal Respiratory: right: wheezing, left: CTA - Cardiovascular Rhythm: irregularly irregular Heart Sounds: Present: S1 & S2 - Extremities Extremities: No edema - Abdominal General gastrointestinal: soft, non-tender, normal bowel sounds - Neurologic Neurologic: CNII-XII intact Results - Labs CBC & Chem 7: 11/07/18 03:44 11/06/18 04:10 Labs: Laboratory Last Values WBC 12.1 K/mm3 (4.5-11.0) H 11/05/18 06:11 RBC 4.22 M/mm3 (3.65-5.03) 11/05/18 06:11 Hgb 11.4 gm/dl (11.8-15.2) L 11/07/18 03:44 Hct 35.6 % (35.5-45.6) 11/07/18 03:44 MCV 83 fl (84-94) L 11/05/18 06:11 MCH 26 pg (28-32) L 11/05/18 06:11 MCHC 32 % (32-34) 11/05/18 06:11 RDW 17.4 % (13.2-15.2) H 11/05/18 06:11 Plt Count 217 K/mm3 (140-440) 11/07/18 03:44 Lymph % (Auto) 17.0 % (13.4-35.0) 11/05/18 06:11 [place] % (Auto) 8.0 % (0.0-7.3) H 11/05/18 06:11 Eos % (Auto) 1.0 % (0.0-4.3) 11/05/18 06:11 Baso % (Auto) 0.9 % (0.0-1.8) 11/05/18 06:11 Lymph # 2.1 K/mm3 (1.2-5.4) 11/05/18 06:11 [place] # 1.0 K/mm3 (0.0-0.8) H 11/05/18 06:11 Eos # 0.1 K/mm3 (0.0-0.4) 11/05/18 06:11 Baso # 0.1 K/mm3 (0.0-0.1) 11/05/18 06:11 Seg Neutrophils % 73.1 % (40.0-70.0) H 11/05/18 06:11 Seg Neutrophils # 8.8 K/mm3 (1.8-7.7) H 11/05/18 06:11 PT 16.7 Sec. (12.2-14.9) H 11/03/18 14:29 INR 1.27 (0.87-1.13) H 11/03/18 14:29 APTT 27.8 Sec. (24.2-36.6) 11/03/18 14:29 D-Dimer 1464.46 ng/mlDDU (0-234) H 11/03/18 02:37 Heparin Anti-Xa Level 0.27 U.I./ml (0.3-0.7) L 11/07/18 03:44 Sodium 136 mmol/L (137-145) L 11/06/18 04:10 Potassium 4.4 mmol/L (3.6-5.0) 11/06/18 04:10 Chloride 103.0 mmol/L (98-107) 11/06/18 04:10 Carbon Dioxide 19 mmol/L (22-30) L 11/06/18 04:10 Anion Gap 18 mmol/L 11/06/18 04:10 BUN 22 mg/dL (9-20) H 11/06/18 04:10 Creatinine 0.9 mg/dL (0.8-1.5) 11/06/18 04:10 Estimated GFR > 60 ml/min 11/06/18 04:10 BUN/Creatinine Ratio 24 % 11/06/18 04:10 Glucose 127 mg/dL (75-100) H 11/06/18 04:10 POC Glucose 119 (70-105) H 11/07/18 08:29 Calcium 8.9 mg/dL (8.4-10.2) 11/06/18 04:10 Phosphorus 2.70 mg/dL (2.5-4.5) 11/06/18 04:10 Magnesium 2.20 mg/dL (1.7-2.3) 11/06/18 04:10 Total Bilirubin 0.90 mg/dL (0.1-1.2) 11/06/18 04:10 Direct Bilirubin < 0.2 mg/dL (0-0.2) 11/03/18 08:45 Indirect Bilirubin 0.4 mg/dL 11/03/18 08:45 AST 226 units/L (5-40) H 11/06/18 04:10 ALT 516 units/L (7-56) H 11/06/18 04:10 Alkaline Phosphatase 98 units/L (35-129) 11/06/18 04:10 Troponin T < 0.010 ng/mL (0.00-0.029) 11/03/18 05:35 Total Protein 7.0 g/dL (6.3-8.2) 11/06/18 04:10 Albumin 3.8 g/dL (3.9-5) L 11/06/18 04:10 Albumin/Globulin Ratio 1.2 % 11/06/18 04:10 TSH 2.950 mlU/mL (0.270-4.200) 11/03/18 02:39 Free T4 1.30 ng/dL (0.76-1.46) 11/03/18 02:39 Urine Color Yellow (Yellow) 11/03/18 17:28 Urine Turbidity Clear (Clear) 11/03/18 17:28 Urine pH 5.0 (5.0-7.0) 11/03/18 17:28 Ur Specific [place] 1.030 (1.003-1.030) 11/03/18 17:28 Urine Protein <15 mg/dl mg/dL (Negative) 11/03/18 17:28 Urine Glucose (UA) Neg mg/dL (Negative) 11/03/18 17:28 Urine Ketones Neg mg/dL (Negative) 11/03/18 17:28 Urine Blood Neg (Negative) 11/03/18 17:28 Urine Nitrite Neg (Negative) 11/03/18 17:28 Urine Bilirubin Neg (Negative) 11/03/18 17:28 Urine Urobilinogen < 2.0 mg/dL (<2.0) 11/03/18 17:28 Ur Leukocyte Esterase Neg (Negative) 11/03/18 17:28 Urine WBC (Auto) 4.0 /HPF (0.0-6.0) 11/03/18 17:28 Urine RBC (Auto) 2.0 /HPF (0.0-6.0) 11/03/18 17:28 Digoxin 0.9 ng/mL (0.9-2.0) 11/06/18 04:10 Urine Opiates Screen Presumptive negative 11/03/18 17:28 Urine Methadone Screen Presumptive negative 11/03/18 17:28 Ur Barbiturates Screen Presumptive negative 11/03/18 17:28 Ur Phencyclidine Scrn Presumptive negative 11/03/18 17:28 Ur Amphetamines Screen Presumptive negative 11/03/18 17:28 U Benzodiazepines Scrn Presumptive negative 11/03/18 17:28 Urine Cocaine Screen Presumptive negative 11/03/18 17:28 U Marijuana (THC) Screen Presumptive negative 11/03/18 17:28 Drugs of Abuse Note Disclamer 11/03/18 17:28 Active Medications - Current Medications Current Medications: Generic Name Dose Route Start Last Admin Trade Name Freq PRN Reason Stop Dose Admin Acetaminophen 650 mg 11/03/18 07:33 Tylenol PO Q4H PRN Pain MILD(1-3)/Fever >100.5/[place] Al Hydrox/Mg Hydrox/Simethicone 30 ml 11/03/18 07:33 Alum-Mag Hydrox-Simeth [phone]/5ml PO Q4H PRN Indigestion Colchicine 0.6 mg 11/03/18 10:00 11/07/18 09:43 Colchicine PO 0.6 mg QDAY JANINE Administration Famotidine 20 mg 11/03/18 10:00 11/07/18 09:42 Pepcid PO 20 mg BID JANINE Administration Furosemide 40 mg 11/06/18 10:00 11/07/18 09:42 Lasix IV 40 mg DAILY JANINE Administration Diltiazem HCl 100 mg/ Dextrose 100 mls @ 5 mls/hr 11/03/18 06:00 11/04/18 16:00 IV 0 mg/hr DIRECT JANINE 0 mls/hr Infusion Protocol 5 MG/HR Heparin Sodium/Sodium Chloride 25,000 unit in 500 mls @ 30 mls/hr 11/03/18 16:00 11/07/18 06:13 Heparin/ 0.45% Nacl-25,000 Unit/500 Ml IV 2,500 units/hr TITR JANINE 50 mls/hr Administration Protocol 1,500 UNITS/HR Insulin Human Lispro 0 unit 11/05/18 11:30 11/07/18 09:23 Humalog SUB-Q Not Given ACHS [facility] Protocol Lisinopril 5 mg 11/03/18 10:00 11/07/18 09:42 Zestril PO 5 mg QDAY [facility] Administration Metoprolol Tartrate 50 mg 11/04/18 22:00 11/07/18 09:42 Lopressor PO 50 mg BID JANINE Administration Morphine Sulfate 2 mg 11/03/18 07:33 11/04/18 07:20 Morphine IV 2 mg Q4H PRN Administration Pain, Moderate (4-6) Ondansetron HCl 4 mg 11/03/18 07:33 Zofran IV Q8H PRN Nausea And Vomiting Oxycodone/Acetaminophen 1 tab 11/03/18 07:33 11/06/18 21:59 Percocet 5/325 PO 1 tab Q6H PRN Administration Pain, Moderate (4-6) Sodium Chloride 10 ml 11/03/18 10:00 11/07/18 09:43 Sodium Chloride Flush Syringe 10 Ml IV 10 ml BID JANINE Administration Sodium Chloride 10 ml 11/03/18 07:33 Sodium Chloride Flush Syringe 10 Ml IV PRN PRN LINE FLUSH
[2018-11-07] MEDS: MORPHINE IV PRN (11:15)
--- NOTE | 2018-11-07 14:06 | Progress Note ---
Assessment and Plan Persistent atrial flutter Consider increasing metoprolol to 3 times a day Continue heparin drip If patient does not convert we'll likely consider JUSTINE/cardioversion Thursday or Thursday HFrEF 15-20% Continue diuresis Monitor strict I's and O continue metoprolol/lisinopril Hypertension Controlled Noncompliant Diabetes mellitus Gout Subjective Date of service: 11/07/18 Principal diagnosis: HF; AFlutter Interval history: no chest pain right now. Objective Vital Signs Temp Pulse Pulse Resp BP Pulse Ox 11/07/18 13:30 125 H 19 160/125 96 11/07/18 13:16 125 H 14 105/76 98 11/07/18 13:00 124 H 23 96/76 100 11/07/18 12:46 124 H 26 H 96/76 100 11/07/18 12:30 123 H 26 H 96/76 95 11/07/18 12:16 124 H 22 97/67 98 11/07/18 12:00 98.5 F 124 H 125 H 29 H 170/144 94 11/07/18 11:46 123 H 28 H 170/144 99 11/07/18 11:38 127 H 11/07/18 11:30 123 H 22 113/85 100 11/07/18 11:16 123 H 19 122/88 98 11/07/18 11:00 123 H 26 H 118/85 100 11/07/18 10:46 128 H 24 118/85 85 11/07/18 10:30 126 H 20 122/88 97 11/07/18 10:16 127 H 23 117/72 93 11/07/18 10:00 126 H 22 118/85 98 11/07/18 09:42 126 H 117/72 11/07/18 09:00 125 H 20 104/71 98 11/07/18 08:06 99 11/07/18 08:00 97.9 F 125 H 13 115/79 100 11/07/18 07:49 126 H 23 96 11/07/18 07:46 126 H 11/07/18 07:00 124 H 22 117/82 97 11/07/18 06:00 124 H 24 113/84 93 11/07/18 05:00 123 H 19 100/75 100 11/07/18 04:00 98.3 F 121 H 122 H 23 95/63 97 11/07/18 03:00 122 H 18 119/82 96 11/07/18 02:00 124 H 16 80/65 98 11/07/18 01:00 123 H 20 80/65 97 11/07/18 00:00 97.5 F L 125 H 124 H 26 H 104/71 96 11/06/18 23:02 126 H 16 100/70 99 11/06/18 23:00 127 H 25 H 100/70 99 11/06/18 22:03 106/80 11/06/18 22:00 127 H 14 102/81 100 11/06/18 21:55 122 H 147/51 11/06/18 21:00 127 H 30 H 102/81 95 11/06/18 20:30 126 H 31 H 108/88 98 11/06/18 20:16 126 H 30 H 108/88 96 11/06/18 20:00 98.3 F 126 H 126 H 13 114/87 97 11/06/18 19:46 127 H 20 114/87 98 11/06/18 19:30 121 H 29 H 97/50 98 11/06/18 19:16 125 H 97/50 93 11/06/18 19:00 125 H 99/68 94 11/06/18 18:46 126 H 99/68 100 11/06/18 18:30 127 H 26 H 99/68 100 11/06/18 18:16 126 H 27 H 99/68 99 11/06/18 18:00 126 H 28 H 99/68 100 11/06/18 17:46 118 H 29 H 99/75 96 11/06/18 17:30 126 H 24 99/75 95 11/06/18 17:16 126 H 17 102/78 62 L 11/06/18 17:00 122 H 12 102/78 95 11/06/18 16:46 120 H 18 88/68 96 11/06/18 16:30 126 H 11 L 118/83 96 11/06/18 16:16 125 H 21 118/83 100 11/06/18 16:00 98.3 F 118 H 117 H 14 106/76 88 11/06/18 15:46 111 H 22 113/83 86 11/06/18 15:30 118 H 27 H 113/83 97 11/06/18 15:16 125 H 20 118/83 99 11/06/18 15:00 125 H 26 H 118/83 99 11/06/18 14:46 125 H 22 121/99 92 11/06/18 14:30 115 H 23 115/74 99 11/06/18 14:16 124 H 30 H 115/74 99 - Physical Examination General: No Apparent Distress HEENT: Positive: PERRL, Normocephaly, Mucus Membranes Moist Neck: Positive: neck supple, trachea midline Cardiac: Positive: Irregularly Regular, Tachycardia Lungs: Positive: Normal Exam Neuro: Positive: Grossly Intact Abdomen: Positive: Soft. Negative: Tender Skin: Negative: Rash Musculoskeletal: No Pain Extremities: Present: edema (trace BLE) - Labs and Meds CBC 11/07/18 Range/Units 03:44 Hgb 11.4 L (11.8-15.2) gm/dl Hct 35.6 (35.5-45.6) % Plt Count 217 (140-440) K/mm3 - Imaging and Cardiology EKG: report reviewed, image reviewed Echo: report reviewed Cardiac cath: report reviewed ([place] 04/2018 normal coronaries)
[2018-11-07] MEDS: PERCOCET 5/325 PO PRN (22:18)
[2018-11-08 05:46] LABS: Hepatitis C Virus Antibody Non-Reactive (NonReactive)
[2018-11-08 05:47] LABS: Hepatitis B Surface Antigen Non-Reactive (Negative)
[2018-11-08] MEDS: SODIUM CHLORIDE FLUSH SYRINGE 10 ML IV SCH ×3 (07:15→22:18)
[2018-11-08] MEDS: LOPRESSOR PO SCH ×5 (07:15→22:21)
[2018-11-08] MEDS: HumaLOG SUB-Q SCH ×3 (08:00→22:45)
[2018-11-08] MEDS: HEPARIN/ 0.45% NACL-25,000 UNIT/500 ML 25,000 UNIT/500 ML BAG IV SCH ×2 (09:30→15:29)
[2018-11-08] MEDS: ZESTRIL PO SCH (10:11)
[2018-11-08] MEDS: PEPCID PO SCH ×2 (10:12→22:18)
--- NOTE | 2018-11-08 10:22 | Progress Note ---
Assessment and Plan Cont present cardiac management. Plan for JUSTINE guided DCCV with anesthesia in AM. Indications, potential risks and benefits of procedure reviewed with pt and he is agreeable to proceed. NPO after MN. Cont heparin gtt in setting of AFlutter and consider conversion to OAC prior to hospital discharge. The patient has been seen in conjunction with Dr. Gamble who agrees with the assessment and plan of care. - Patient Problems (1) Atrial flutter with rapid ventricular response Current Visit: Yes Status: Acute (2) Acute HFrEF (heart failure with reduced ejection fraction) Current Visit: Yes Status: Acute (3) Chest pain Current Visit: Yes Status: Acute (4) Nonischemic dilated cardiomyopathy Current Visit: Yes Status: Chronic (5) Diabetes Current Visit: Yes Status: Chronic (6) Obesity Current Visit: Yes Status: Chronic (7) Elevated LFTs Current Visit: Yes Status: Acute (8) Normal coronary arteries Current Visit: Yes Status: Chronic Subjective Date of service: 11/08/18 Principal diagnosis: HF; AFlutter Interval history: pt sitting up at bedside, states he is feeling well. remains in AFlutter with HR 120s. Objective Last Vital Signs Temp 97.6 F 11/08/18 08:00 Pulse 126 H 11/08/18 10:11 Resp 20 11/08/18 07:00 BP 107/68 11/08/18 10:11 Pulse Ox 92 11/08/18 07:15 - Physical Examination General: No Apparent Distress HEENT: Positive: PERRL, Normocephaly, Mucus Membranes Moist Neck: Positive: neck supple, trachea midline Cardiac: Positive: irregularly irregular, S1/S2, Tachycardia Lungs: Positive: Decreased Breath Sounds Neuro: Positive: Grossly Intact Abdomen: Positive: Soft. Negative: Tender Skin: Negative: Rash Musculoskeletal: No Pain Extremities: Present: edema (trace BLE) - Imaging and Cardiology EKG: report reviewed, image reviewed Echo: report reviewed (EF 15-20%, LA mod to severely dilated, RA severely dilated, RV systolic function mod reduced, mod MR, RVSP 48mmHg. ) Cardiac cath: report reviewed ([place] 04/2018 normal coronaries) - Telemetry EKG Rhythm: Atrial Flutter
[2018-11-08] MEDS: LASIX IV SCH (12:30)
--- NOTE | 2018-11-08 14:22 | Anesthesia Consultation ---
Anesthesia Consult and Med Hx Date of service: 11/09/18 - Airway Anesthetic Teeth Evaluation: Poor ROM Head & Neck: Adequate Mental/Hyoid Distance: Adequate Mallampati Class: Class III Intubation Access Assessment: Possibly Difficult - Pulmonary Exam CTA: Yes - Cardiac Exam Cardiac Exam: No Murmur - Pre-Operative Health Status ASA Pre-Surgery Classification: ASA4 Proposed Anesthetic Plan: MAC - Pulmonary Hx Smoking: No (former smoker, quit 10 years ago) Hx Asthma: No COPD: No Hx Pneumonia: No Hx Sleep Apnea: Yes - Cardiovascular System Hx Hypertension: Yes Hx Coronary Artery Disease: (ni) Hx Heart Attack/AMI: No Hx Angina: No Hx Percutaneous Transluminal Coronary Angioplasty (PTCA): No Hx Cardia Arrhythmia: Yes (atrial flutter with RVR) Hx Pacemaker: No Hx Internal Defibrillator: No Hx Valvular Heart Disease: No Hx Heart Murmur: No Hx Peripheral Vascular Disease: No - Central Nervous System Hx Neuromuscular Disorder: No Hx Seizures: No CVA: No Hx Psychiatric Problems: No - Gastrointestinal Hx Gastroesophageal Reflux Disease: No - Endocrine Hx End Stage Renal Disease: No Hx Liver Disease: No Hx Non-Insulin Dependent Diabetes: Yes Hx Thyroid Disease: No - Hematic Hx Anemia: No - Other Systems Hx Alcohol Use: No Hx Cancer: No Hx Obesity: Yes - Additional Comments Anesthesia Medical History Comments: No GAC, No FHAC
--- NOTE | 2018-11-08 17:27 | Progress Note ---
Assessment and Plan - Patient Problems (1) Acute HFrEF (heart failure with reduced ejection fraction) Current Visit: Yes Status: Acute Plan to address problem: Patient congestive heart failure ejection fraction 15% continue diuretics with Lasix, beta sampson and DAMIEN inhibitor. Fair compensation however can be improved with correction of atrial fibrillation patient to be shot cardioverted in a.m. (2) Atrial flutter with rapid ventricular response Current Visit: Yes Status: Acute Plan to address problem: She is scheduled for cardioversion in the a.m. (3) Elevated LFTs Current Visit: Yes Status: Acute Plan to address problem: Patient cannot use amiodarone secondary to elevated liver function tests. Continue metoprolol for A. fib. (4) HTN (hypertension) Current Visit: Yes Status: Acute Plan to address problem: At present patient has fair control of hypertension. (5) Diabetes Current Visit: Yes Status: Chronic Plan to address problem: Diabetes continues to have optimal control as well. (6) Obesity Current Visit: Yes Status: Chronic History Interval history: Patient scheduled for cardioversion in the a.m. Patient denies any rest pain or concerns. Shortness of breath with movement. She remains tachycardic and hypotensive today. Heart rate irregular. Hospitalist Physical - Constitutional Vitals: Temp Pulse Resp BP Pulse Ox 98.0 F 125 H 19 103/71 96 11/08/18 16:00 11/08/18 17:00 11/08/18 17:00 11/08/18 17:00 11/08/18 17:00 General appearance: Present: no acute distress, other (obese) - EENT Eyes: Present: PERRL, EOM intact ENT: hearing intact, clear oral mucosa, dentition normal, no poor dentition, no thrush, no ulcerations - Neck Neck: Present: supple, normal ROM. Absent: enlarged thyroid, masses or JVD - Respiratory Respiratory: bilateral: rhonchi (few) - Cardiovascular Rhythm: regularly irregular (irregular) - Extremities Extremities: no ischemia, pulses intact, No edema, normal temperature Extremity abnormal: edema Peripheral Pulses: abnormal - Abdominal General gastrointestinal: soft, non-tender, normal bowel sounds, other (obese), no distended, no rigid - Integumentary Integumentary: Present: clear, warm, dry. Absent: erythema, jaundice, rash, cla mmy - Psychiatric Psychiatric: appropriate mood/affect, intact judgment & insight - Neurologic Neurologic: CNII-XII intact, moves all extremities Results - Labs CBC & Chem 7: 11/07/18 03:44 11/06/18 04:10 Labs: Laboratory Last Values WBC 12.1 K/mm3 (4.5-11.0) H 11/05/18 06:11 RBC 4.22 M/mm3 (3.65-5.03) 11/05/18 06:11 Hgb 11.4 gm/dl (11.8-15.2) L 11/07/18 03:44 Hct 35.6 % (35.5-45.6) 11/07/18 03:44 MCV 83 fl (84-94) L 11/05/18 06:11 MCH 26 pg (28-32) L 11/05/18 06:11 MCHC 32 % (32-34) 11/05/18 06:11 RDW 17.4 % (13.2-15.2) H 11/05/18 06:11 Plt Count 217 K/mm3 (140-440) 11/07/18 03:44 Lymph % (Auto) 17.0 % (13.4-35.0) 11/05/18 06:11 [place] % (Auto) 8.0 % (0.0-7.3) H 11/05/18 06:11 Eos % (Auto) 1.0 % (0.0-4.3) 11/05/18 06:11 Baso % (Auto) 0.9 % (0.0-1.8) 11/05/18 06:11 Lymph # 2.1 K/mm3 (1.2-5.4) 11/05/18 06:11 [place] # 1.0 K/mm3 (0.0-0.8) H 11/05/18 06:11 Eos # 0.1 K/mm3 (0.0-0.4) 11/05/18 06:11 Baso # 0.1 K/mm3 (0.0-0.1) 11/05/18 06:11 Seg Neutrophils % 73.1 % (40.0-70.0) H 11/05/18 06:11 Seg Neutrophils # 8.8 K/mm3 (1.8-7.7) H 11/05/18 06:11 PT 16.7 Sec. (12.2-14.9) H 11/03/18 14:29 INR 1.27 (0.87-1.13) H 11/03/18 14:29 APTT 27.8 Sec. (24.2-36.6) 11/03/18 14:29 D-Dimer 1464.46 ng/mlDDU (0-234) H 11/03/18 02:37 Heparin Anti-Xa Level 0.24 U.I./ml (0.3-0.7) L 11/08/18 16:17 Sodium 136 mmol/L (137-145) L 11/06/18 04:10 Potassium 4.4 mmol/L (3.6-5.0) 11/06/18 04:10 Chloride 103.0 mmol/L (98-107) 11/06/18 04:10 Carbon Dioxide 19 mmol/L (22-30) L 11/06/18 04:10 Anion Gap 18 mmol/L 11/06/18 04:10 BUN 22 mg/dL (9-20) H 11/06/18 04:10 Creatinine 0.9 mg/dL (0.8-1.5) 11/06/18 04:10 Estimated GFR > 60 ml/min 11/06/18 04:10 BUN/Creatinine Ratio 24 % 11/06/18 04:10 Glucose 127 mg/dL (75-100) H 11/06/18 04:10 POC Glucose 184 (70-105) H 11/08/18 16:14 Calcium 8.9 mg/dL (8.4-10.2) 11/06/18 04:10 Phosphorus 2.70 mg/dL (2.5-4.5) 11/06/18 04:10 Magnesium 2.20 mg/dL (1.7-2.3) 11/06/18 04:10 Total Bilirubin 0.90 mg/dL (0.1-1.2) 11/06/18 04:10 Direct Bilirubin < 0.2 mg/dL (0-0.2) 11/03/18 08:45 Indirect Bilirubin 0.4 mg/dL 11/03/18 08:45 AST 226 units/L (5-40) H 11/06/18 04:10 ALT 516 units/L (7-56) H 11/06/18 04:10 Alkaline Phosphatase 98 units/L (35-129) 11/06/18 04:10 Troponin T < 0.010 ng/mL (0.00-0.029) 11/07/18 12:53 Total Protein 7.0 g/dL (6.3-8.2) 11/06/18 04:10 Albumin 3.8 g/dL (3.9-5) L 11/06/18 04:10 Albumin/Globulin Ratio 1.2 % 11/06/18 04:10 TSH 2.950 mlU/mL (0.270-4.200) 11/03/18 02:39 Free T4 1.30 ng/dL (0.76-1.46) 11/03/18 02:39 Urine Color Yellow (Yellow) 11/03/18 17:28 Urine Turbidity Clear (Clear) 11/03/18 17:28 Urine pH 5.0 (5.0-7.0) 11/03/18 17:28 Ur Specific [place] 1.030 (1.003-1.030) 11/03/18 17:28 Urine Protein <15 mg/dl mg/dL (Negative) 11/03/18 17:28 Urine Glucose (UA) Neg mg/dL (Negative) 11/03/18 17:28 Urine Ketones Neg mg/dL (Negative) 11/03/18 17:28 Urine Blood Neg (Negative) 11/03/18 17:28 Urine Nitrite Neg (Negative) 11/03/18 17:28 Urine Bilirubin Neg (Negative) 11/03/18 17:28 Urine Urobilinogen < 2.0 mg/dL (<2.0) 11/03/18 17:28 Ur Leukocyte Esterase Neg (Negative) 11/03/18 17:28 Urine WBC (Auto) 4.0 /HPF (0.0-6.0) 11/03/18 17:28 Urine RBC (Auto) 2.0 /HPF (0.0-6.0) 11/03/18 17:28 Digoxin 0.9 ng/mL (0.9-2.0) 11/06/18 04:10 Urine Opiates Screen Presumptive negative 11/03/18 17:28 Urine Methadone Screen Presumptive negative 11/03/18 17:28 Ur Barbiturates Screen Presumptive negative 11/03/18 17:28 Ur Phencyclidine Scrn Presumptive negative 11/03/18 17:28 Ur Amphetamines Screen Presumptive negative 11/03/18 17:28 U Benzodiazepines Scrn Presumptive negative 11/03/18 17:28 Urine Cocaine Screen Presumptive negative 11/03/18 17:28 U Marijuana (THC) Screen Presumptive negative 11/03/18 17:28 Drugs of Abuse Note Disclamer 11/03/18 17:28 Hepatitis A IgM Ab Non-reactive (NonReactive) 11/08/18 04:14 Hep Bs Antigen Non-reactive (Negative) 11/08/18 04:14 Hep B Core IgM Ab Non-reactive (NonReactive) 11/08/18 04:14 Hepatitis C Antibody Non-reactive (NonReactive) 11/08/18 04:14 Active Medications - Current Medications Current Medications: Generic Name Dose Route Start Last Admin Trade Name Freq PRN Reason Stop Dose Admin Acetaminophen 650 mg 11/03/18 07:33 Tylenol PO Q4H PRN Pain MILD(1-3)/Fever >100.5/[place] Al Hydrox/Mg Hydrox/Simethicone 30 ml 11/03/18 07:33 Alum-Mag Hydrox-Simeth 499-142-22sz/5ml PO Q4H PRN Indigestion Famotidine 20 mg 11/03/18 10:00 11/08/18 10:12 Pepcid PO 20 mg BID JANINE Administration Furosemide 40 mg 11/08/18 12:00 11/08/18 12:30 Lasix IV 40 mg DAILY JANINE Administration Heparin Sodium/Sodium Chloride 25,000 unit in 500 mls @ 30 mls/hr 11/03/18 16:00 11/08/18 15:29 Heparin/ 0.45% Nacl-25,000 Unit/500 Ml IV 2,200 units/hr TITR JANINE 44 mls/hr Administration Protocol 1,500 UNITS/HR Insulin Human Lispro 0 unit 11/05/18 11:30 11/08/18 12:30 Humalog SUB-Q 2 unit ACHS JANINE Administration Protocol Lisinopril 5 mg 11/03/18 10:00 11/08/18 10:11 Zestril PO 5 mg QDAY JANINE Administration Metoprolol Tartrate 50 mg 11/07/18 20:00 11/08/18 14:45 Lopressor PO 50 mg TID JANINE Administration Morphine Sulfate 2 mg 11/03/18 07:33 11/07/18 11:15 Morphine IV 2 mg Q4H PRN Administration Pain, Moderate (4-6) Ondansetron HCl 4 mg 11/03/18 07:33 11/08/18 16:17 Zofran IV 4 mg Q8H PRN Administration Nausea And Vomiting Oxycodone/Acetaminophen 1 tab 11/03/18 07:33 11/07/18 22:18 Percocet 5/325 PO 1 tab Q6H PRN Administration Pain, Moderate (4-6) Sodium Chloride 10 ml 11/03/18 10:00 11/08/18 15:30 Sodium Chloride Flush Syringe 10 Ml IV 10 ml BID JANINE Administration Sodium Chloride 10 ml 11/03/18 07:33 Sodium Chloride Flush Syringe 10 Ml IV PRN PRN LINE FLUSH
[2018-11-09] MEDS: HEPARIN/ 0.45% NACL-25,000 UNIT/500 ML 25,000 UNIT/500 ML BAG IV SCH ×3 (02:41→22:32)
[2018-11-09 05:37] LABS: Hematocrit 36.6 % (35.5-45.6); Hemoglobin 11.6 gm/dl (11.8-15.2)
--- NOTE | 2018-11-09 07:52 | Progress Note ---
Assessment and Plan Assessment and plan: 57-year-old -[place] male with past medical history significant for congestive heart failure, diabetes mellitus, hypertension, gout, CAD, migraine presented to the emergency department complaining of left-sided chest pain that started 2 days ago but worsening yesterday. Pain was sharp, 9/10 in intensity, with no radiation, associated with shortness of breath, sweating, leg swelling and palpitation. Patient also admitted for dyspnea, orthopnea was the last 2 days. Patient denied cough, fever, chills, dysuria. - Patient Problems (1) Acute HFrEF (heart failure with reduced ejection fraction) Current Visit: Yes Status: Acute Plan to address problem: Patient congestive heart failure ejection fraction 15% continue diuretics with Lasix, beta sampson and DAMIEN inhibitor. Fair compensation however can be improved with correction of atrial fibrillation patient to be shot cardioverted in a.m. This was held today and will be done in am (2) Atrial flutter with rapid ventricular response Current Visit: Yes Status: Acute Plan to address problem: She is scheduled for cardioversion today. (3) Elevated LFTs Current Visit: Yes Status: Acute Plan to address problem: Patient cannot use amiodarone secondary to elevated liver function tests. Continue metoprolol for A. fib. Hepatitis serology is negative Check ultrasound OF Liver (4) HTN (hypertension) Current Visit: Yes Status: Acute Plan to address problem: At present patient has fair control of hypertension. (5) Diabetes Current Visit: Yes Status: Chronic Plan to address problem: Diabetes continues to have optimal control as well. (6) Gout On colchine (7) Obesity Current Visit: Yes Status: Chronic History Interval history: Patient seen and examined, awaiting Cardioversion, No new complaints. Hospitalist Physical - Physical exam Narrative exam: VITAL SIGNS: Reviewed. GENERAL: The patient appeared well nourished and normally developed, Vital signs as documented. HEAD: No signs of head trauma. EYES: Pupils are equal. Extraocular motions intact. EARS: Hearing grossly intact. MOUTH: Oropharynx is normal. NECK: No adenopathy, no JVD. CHEST: Chest with clear breath sounds bilaterally. No wheezes, rales, or rhonchi. CARDIAC: Irregularly irregular with tachycardia. S1 and S2, without murmurs, gallops, or rubs. VASCULAR: Trace Edema. Peripheral pulses normal and equal in all extremities. ABDOMEN: Soft, non tender and non distended. No rebound or guarding, and no masses palpated. Bowel Sounds normal. MUSCULOSKELETAL: Good range of motion of all major joints. Extremities without clubbing, cyanosis. Trace bilateral lower extremity edema. NEUROLOGIC EXAM: Alert and oriented x 3 No focal sensory or strength deficits. Speech normal. Follows commands. PSYCHIATRIC: Mood normal. SKIN: No rash or lesions. - Constitutional Vitals: Temp Pulse Resp BP Pulse Ox 97.2 F L 120 H 8 L 98/78 93 11/09/18 04:00 11/09/18 06:00 11/09/18 06:00 11/09/18 06:00 11/09/18 06:00 General appearance: Present: no acute distress, other (obese) Results - Labs CBC & Chem 7: 11/09/18 04:30 11/06/18 04:10 Labs: Laboratory Last Values WBC 12.1 K/mm3 (4.5-11.0) H 11/05/18 06:11 RBC 4.22 M/mm3 (3.65-5.03) 11/05/18 06:11 Hgb 11.6 gm/dl (11.8-15.2) L 11/09/18 04:30 Hct 36.6 % (35.5-45.6) 11/09/18 04:30 MCV 83 fl (84-94) L 11/05/18 06:11 MCH 26 pg (28-32) L 11/05/18 06:11 MCHC 32 % (32-34) 11/05/18 06:11 RDW 17.4 % (13.2-15.2) H 11/05/18 06:11 Plt Count 225 K/mm3 (140-440) 11/09/18 04:30 Lymph % (Auto) 17.0 % (13.4-35.0) 11/05/18 06:11 [place] % (Auto) 8.0 % (0.0-7.3) H 11/05/18 06:11 Eos % (Auto) 1.0 % (0.0-4.3) 11/05/18 06:11 Baso % (Auto) 0.9 % (0.0-1.8) 11/05/18 06:11 Lymph # 2.1 K/mm3 (1.2-5.4) 11/05/18 06:11 [place] # 1.0 K/mm3 (0.0-0.8) H 11/05/18 06:11 Eos # 0.1 K/mm3 (0.0-0.4) 11/05/18 06:11 Baso # 0.1 K/mm3 (0.0-0.1) 11/05/18 06:11 Seg Neutrophils % 73.1 % (40.0-70.0) H 11/05/18 06:11 Seg Neutrophils # 8.8 K/mm3 (1.8-7.7) H 11/05/18 06:11 PT 16.7 Sec. (12.2-14.9) H 11/03/18 14:29 INR 1.27 (0.87-1.13) H 11/03/18 14:29 APTT 27.8 Sec. (24.2-36.6) 11/03/18 14:29 D-Dimer 1464.46 ng/mlDDU (0-234) H 11/03/18 02:37 Heparin Anti-Xa Level 0.37 U.I./ml (0.3-0.7) 11/08/18 23:15 Sodium 136 mmol/L (137-145) L 11/06/18 04:10 Potassium 4.4 mmol/L (3.6-5.0) 11/06/18 04:10 Chloride 103.0 mmol/L (98-107) 11/06/18 04:10 Carbon Dioxide 19 mmol/L (22-30) L 11/06/18 04:10 Anion Gap 18 mmol/L 11/06/18 04:10 BUN 22 mg/dL (9-20) H 11/06/18 04:10 Creatinine 0.9 mg/dL (0.8-1.5) 11/06/18 04:10 Estimated GFR > 60 ml/min 11/06/18 04:10 BUN/Creatinine Ratio 24 % 11/06/18 04:10 Glucose 127 mg/dL (75-100) H 11/06/18 04:10 POC Glucose 134 (70-105) H 11/08/18 21:16 Calcium 8.9 mg/dL (8.4-10.2) 11/06/18 04:10 Phosphorus 2.70 mg/dL (2.5-4.5) 11/06/18 04:10 Magnesium 2.20 mg/dL (1.7-2.3) 11/06/18 04:10 Total Bilirubin 0.90 mg/dL (0.1-1.2) 11/06/18 04:10 Direct Bilirubin < 0.2 mg/dL (0-0.2) 11/03/18 08:45 Indirect Bilirubin 0.4 mg/dL 11/03/18 08:45 AST 226 units/L (5-40) H 11/06/18 04:10 ALT 516 units/L (7-56) H 11/06/18 04:10 Alkaline Phosphatase 98 units/L (35-129) 11/06/18 04:10 Troponin T < 0.010 ng/mL (0.00-0.029) 11/07/18 12:53 Total Protein 7.0 g/dL (6.3-8.2) 11/06/18 04:10 Albumin 3.8 g/dL (3.9-5) L 11/06/18 04:10 Albumin/Globulin Ratio 1.2 % 11/06/18 04:10 TSH 2.950 mlU/mL (0.270-4.200) 11/03/18 02:39 Free T4 1.30 ng/dL (0.76-1.46) 11/03/18 02:39 Urine Color Yellow (Yellow) 11/03/18 17:28 Urine Turbidity Clear (Clear) 11/03/18 17:28 Urine pH 5.0 (5.0-7.0) 11/03/18 17:28 Ur Specific [place] 1.030 (1.003-1.030) 11/03/18 17:28 Urine Protein <15 mg/dl mg/dL (Negative) 11/03/18 17:28 Urine Glucose (UA) Neg mg/dL (Negative) 11/03/18 17:28 Urine Ketones Neg mg/dL (Negative) 11/03/18 17:28 Urine Blood Neg (Negative) 11/03/18 17:28 Urine Nitrite Neg (Negative) 11/03/18 17:28 Urine Bilirubin Neg (Negative) 11/03/18 17:28 Urine Urobilinogen < 2.0 mg/dL (<2.0) 11/03/18 17:28 Ur Leukocyte Esterase Neg (Negative) 11/03/18 17:28 Urine WBC (Auto) 4.0 /HPF (0.0-6.0) 11/03/18 17:28 Urine RBC (Auto) 2.0 /HPF (0.0-6.0) 11/03/18 17:28 Digoxin 0.9 ng/mL (0.9-2.0) 11/06/18 04:10 Urine Opiates Screen Presumptive negative 11/03/18 17:28 Urine Methadone Screen Presumptive negative 11/03/18 17:28 Ur Barbiturates Screen Presumptive negative 11/03/18 17:28 Ur Phencyclidine Scrn Presumptive negative 11/03/18 17:28 Ur Amphetamines Screen Presumptive negative 11/03/18 17:28 U Benzodiazepines Scrn Presumptive negative 11/03/18 17:28 Urine Cocaine Screen Presumptive negative 11/03/18 17:28 U Marijuana (THC) Screen Presumptive negative 11/03/18 17:28 Drugs of Abuse Note Disclamer 11/03/18 17:28 Hepatitis A IgM Ab Non-reactive (NonReactive) 11/08/18 04:14 Hep Bs Antigen Non-reactive (Negative) 11/08/18 04:14 Hep B Core IgM Ab Non-reactive (NonReactive) 11/08/18 04:14 Hepatitis C Antibody Non-reactive (NonReactive) 11/08/18 04:14 Active Medications - Current Medications Current Medications: Generic Name Dose Route Start Last Admin Trade Name Freq PRN Reason Stop Dose Admin Acetaminophen 650 mg 11/03/18 07:33 Tylenol PO Q4H PRN Pain MILD(1-3)/Fever >100.5/[place] Al Hydrox/Mg Hydrox/Simethicone 30 ml 11/03/18 07:33 Alum-Mag Hydrox-Simeth 174-477-31gb/5ml PO Q4H PRN Indigestion Famotidine 20 mg 11/03/18 10:00 11/08/18 22:18 Pepcid PO 20 mg BID JANINE Administration Furosemide 40 mg 11/08/18 12:00 11/08/18 12:30 Lasix IV 40 mg DAILY JANINE Administration Heparin Sodium/Sodium Chloride 25,000 unit in 500 mls @ 30 mls/hr 11/03/18 16:00 11/09/18 05:50 Heparin/ 0.45% Nacl-25,000 Unit/500 Ml IV 2,350 units/hr TITR JANINE 47 mls/hr Titration Protocol 1,500 UNITS/HR Insulin Human Lispro 0 unit 11/05/18 11:30 11/08/18 22:45 Humalog SUB-Q Not Given ACHS [facility] Protocol Lisinopril 5 mg 11/03/18 10:00 11/08/18 10:11 Zestril PO 5 mg QDAY JANINE Administration Metoprolol Tartrate 50 mg 11/07/18 20:00 11/08/18 22:21 Lopressor PO 50 mg TID [facility] Administration Morphine Sulfate 2 mg 11/03/18 07:33 11/07/18 11:15 Morphine IV 2 mg Q4H PRN Administration Pain, Moderate (4-6) Ondansetron HCl 4 mg 11/03/18 07:33 11/08/18 16:17 Zofran IV 4 mg Q8H PRN Administration Nausea And Vomiting Oxycodone/Acetaminophen 1 tab 11/03/18 07:33 11/07/18 22:18 Percocet 5/325 PO 1 tab Q6H PRN Administration Pain, Moderate (4-6) Sodium Chloride 10 ml 11/03/18 10:00 11/08/18 22:18 Sodium Chloride Flush Syringe 10 Ml IV 10 ml BID JNAINE Administration Sodium Chloride 10 ml 11/03/18 07:33 Sodium Chloride Flush Syringe 10 Ml IV PRN PRN LINE FLUSH
[2018-11-09] MEDS ORDERED: HURRICAINE ONE 20% TOPICAL SPRAY MM (10:48)
--- NOTE | 2018-11-09 11:23 | Progress Note ---
Assessment and Plan Cont present cardiac management. Unable to perform JUSTINE guided DCCV today due to scheduling issues in anesthesia department. Will attempt to proceed with JUSTINE guided DCCV in AM. NPO after MN. Cont heparin gtt in setting of AFlutter and consider conversion to OAC prior to hospital discharge. The patient has been seen in conjunction with Dr. Keyshawn Wade who agrees with the assessment and plan of care. - Patient Problems (1) Atrial flutter with rapid ventricular response Current Visit: Yes Status: Acute (2) Acute HFrEF (heart failure with reduced ejection fraction) Current Visit: Yes Status: Acute (3) Chest pain Current Visit: Yes Status: Acute (4) Nonischemic dilated cardiomyopathy Current Visit: Yes Status: Chronic (5) Diabetes Current Visit: Yes Status: Chronic (6) Obesity Current Visit: Yes Status: Chronic (7) Elevated LFTs Current Visit: Yes Status: Acute (8) Normal coronary arteries Current Visit: Yes Status: Chronic Subjective Date of service: 11/09/18 Principal diagnosis: HF; AFlutter Interval history: pt sitting up at bedside, states he is feeling well. remains in AFlutter with HR 120s. Objective Last Vital Signs Temp 98.5 F 11/09/18 08:00 Pulse 120 H 11/09/18 06:00 Resp 8 L 11/09/18 06:00 BP 98/78 11/09/18 06:00 Pulse Ox 93 11/09/18 06:00 - Physical Examination General: No Apparent Distress HEENT: Positive: PERRL, Normocephaly, Mucus Membranes Moist Neck: Positive: neck supple, trachea midline Cardiac: Positive: irregularly irregular, S1/S2, Tachycardia Lungs: Positive: Decreased Breath Sounds Neuro: Positive: Grossly Intact Abdomen: Positive: Soft. Negative: Tender Skin: Negative: Rash Musculoskeletal: No Pain Extremities: Present: edema (trace BLE) - Labs and Meds CBC 11/09/18 Range/Units 04:30 Hgb 11.6 L (11.8-15.2) gm/dl Hct 36.6 (35.5-45.6) % Plt Count 225 (140-440) K/mm3 - Imaging and Cardiology EKG: report reviewed, image reviewed Echo: report reviewed (EF 15-20%, LA mod to severely dilated, RA severely dilated, RV systolic function mod reduced, mod MR, RVSP 48mmHg. ) Cardiac cath: report reviewed ([place] 04/2018 normal coronaries)
[2018-11-09] MEDS: HumaLOG SUB-Q SCH ×4 (12:32→21:53)
[2018-11-09] MEDS: LOPRESSOR PO SCH ×3 (12:51→21:49)
[2018-11-09] MEDS: PEPCID PO SCH ×2 (12:53→21:51)
[2018-11-09] MEDS: ZESTRIL PO SCH (12:53)
[2018-11-09] MEDS: LASIX IV SCH (12:53)
[2018-11-09] MEDS: SODIUM CHLORIDE FLUSH SYRINGE 10 ML IV SCH ×2 (12:54→21:48)
[2018-11-10 08:17] LABS: Alanine Aminotransferase 176 units/L (7-56); Albumin 3.6 g/dL (3.9-5); BUN/Creatinine Ratio 21; Blood Urea Nitrogen 21 mg/dL (9-20); Hemolysis Index 7
[2018-11-10] MEDS ORDERED: HURRICAINE ONE 20% TOPICAL SPRAY MM NR (09:00)
[2018-11-10] MEDS ORDERED: NACL 0.9% 500 ML 500 ML IV SCH (09:00)
[2018-11-10] MEDS ORDERED: DIPRIVAN 10 MG/ML IV ONE (09:23)
[2018-11-10] MEDS ORDERED: VERSED ONE (09:23)
--- NOTE | 2018-11-10 09:28 | Ultrasound Report ---
ULTRASOUND ABDOMEN LIMITED: TECHNIQUE: Transabdominal ultrasound with color Doppler interrogation. HISTORY: Abnormal liver function tests, evaluate liver. COMPARISON: none. FINDINGS: LIVER: The liver appears normal size, contour and echotexture. No enlargement, focal mass or surface nodularity is identified. BILIARY SYSTEM: The gallbladder is partially contracted. No evidence for gallstones or sludge. The CBD measures 3 mm. PANCREAS: Normal. RIGHT KIDNEY: Normal. PROXIMAL AORTA: Normal. ASCITES: None. IMPRESSION: Unremarkable exam. No sonographic abnormality of the liver or biliary system is detected.
--- NOTE | 2018-11-10 10:28 | Progress Note ---
Assessment and Plan Pt underwent JUSTINE guided DCCV with successful conversion to NSR. D/c heparin gtt and initiate eliquis. Cont all other present cardiac management. Pt may tx out of IMCU to telemetry. Encourage increased activity/ambulation. Possible d/c home in AM if pt maintains NSR. The patient has been seen in conjunction with Dr. Keyshawn Wade who agrees with the assessment and plan of care. - Patient Problems (1) Atrial flutter with rapid ventricular response Current Visit: Yes Status: Acute (2) Acute HFrEF (heart failure with reduced ejection fraction) Current Visit: Yes Status: Acute (3) Chest pain Current Visit: Yes Status: Resolved (4) Nonischemic dilated cardiomyopathy Current Visit: Yes Status: Chronic (5) Diabetes Current Visit: Yes Status: Chronic (6) Obesity Current Visit: Yes Status: Chronic (7) Elevated LFTs Current Visit: Yes Status: Acute (8) Normal coronary arteries Current Visit: Yes Status: Chronic Subjective Date of service: 11/10/18 Principal diagnosis: HF; AFlutter Interval history: pt for JUSTINE guided cardioversion today, no current complaints, remains in AFlutter with HR 120s. Objective Last Vital Signs Temp 97.6 F 11/10/18 09:39 Pulse 97 H 11/10/18 10:15 Resp 20 11/10/18 10:15 BP 108/78 11/10/18 10:15 Pulse Ox 100 11/10/18 10:15 - Physical Examination General: No Apparent Distress HEENT: Positive: PERRL, Normocephaly, Mucus Membranes Moist Neck: Positive: neck supple, trachea midline Cardiac: Positive: irregularly irregular, S1/S2, Tachycardia Lungs: Positive: Decreased Breath Sounds Neuro: Positive: Grossly Intact Abdomen: Positive: Soft. Negative: Tender Skin: Negative: Rash Musculoskeletal: No Pain Extremities: Present: edema (trace BLE) - Labs and Meds Cardiac Enzymes 11/10/18 Range/Units 07:37 AST 38 (5-40) units/L Comprehensive Metabolic Panel 11/10/18 Range/Units 07:37 Sodium 138 (137-145) mmol/L Potassium 4.3 (3.6-5.0) mmol/L Chloride 104.7 (98-107) mmol/L Carbon Dioxide 22 (22-30) mmol/L BUN 21 H (9-20) mg/dL Creatinine 1.0 (0.8-1.5) mg/dL Glucose 129 H (75-100) mg/dL Calcium 9.0 (8.4-10.2) mg/dL AST 38 (5-40) units/L ALT 176 H (7-56) units/L Alkaline Phosphatase 85 (35-129) units/L Total Protein 7.3 (6.3-8.2) g/dL Albumin 3.6 L (3.9-5) g/dL - Imaging and Cardiology EKG: report reviewed, image reviewed Echo: report reviewed (EF 15-20%, LA mod to severely dilated, RA severely dilated, RV systolic function mod reduced, mod MR, RVSP 48mmHg. ) Cardiac cath: report reviewed ([place] 04/2018 normal coronaries)
[2018-11-10] MEDS: LOPRESSOR PO SCH ×3 (12:40→21:01)
[2018-11-10] MEDS: HumaLOG SUB-Q SCH ×4 (12:40→22:54)
[2018-11-10] MEDS: SODIUM CHLORIDE FLUSH SYRINGE 10 ML IV SCH ×2 (12:42→21:06)
[2018-11-10] MEDS: ZESTRIL PO SCH (12:42)
[2018-11-10] MEDS: LASIX IV SCH (12:42)
[2018-11-10] MEDS: PEPCID PO SCH ×2 (12:42→21:03)
--- NOTE | 2018-11-10 19:39 | Progress Note ---
Assessment and Plan Assessment and plan: 57-year-old -[place] male with past medical history significant for congestive heart failure, diabetes mellitus, hypertension, gout, CAD, migraine presented to the emergency department complaining of left-sided chest pain that started 2 days ago but worsening yesterday. Pain was sharp, 9/10 in intensity, with no radiation, associated with shortness of breath, sweating, leg swelling and palpitation. Patient also admitted for dyspnea, orthopnea was the last 2 days. Patient denied cough, fever, chills, dysuria. - Patient Problems (1) Acute HFrEF (heart failure with reduced ejection fraction) Current Visit: Yes Status: Acute Plan to address problem: Patient congestive heart failure ejection fraction 15% continue diuretics with Lasix, beta sampson and DAMIEN inhibitor. (2) Atrial flutter with rapid ventricular response Current Visit: Yes Status: Acute Plan to address problem: he underwent cardiversion. will monitor to ensure remains in NSR by am (3) Elevated LFTs Current Visit: Yes Status: Acute Plan to address problem: Patient cannot use amiodarone secondary to elevated liver function tests. Continue metoprolol for A. fib. Hepatitis serology is negative Check ultrasound OF Liver- NEGATIVE LFT improving. was likely elevated secondary to transient injury. counselling on all hepatotoxic elements provided (4) HTN (hypertension) Current Visit: Yes Status: Acute Plan to address problem: At present patient has fair control of hypertension. (5) Diabetes Current Visit: Yes Status: Chronic Plan to address problem: Diabetes continues to have optimal control as well. (6) Gout On colchine (7) Obesity Current Visit: Yes Status: Chronic History Interval history: Patient seen and examined, awaiting Cardioversion, when he was seen this morning, later spoke with cardiology, was successful, will monitor overnight. No new complaints. Hospitalist Physical - Physical exam Narrative exam: VITAL SIGNS: Reviewed. GENERAL: The patient appeared well nourished and normally developed, Vital signs as documented. HEAD: No signs of head trauma. EYES: Pupils are equal. Extraocular motions intact. EARS: Hearing grossly intact. MOUTH: Oropharynx is normal. NECK: No adenopathy, no JVD. CHEST: Chest with clear breath sounds bilaterally. No wheezes, rales, or rhonchi. CARDIAC: Irregularly irregular with tachycardia. S1 and S2, without murmurs, gallops, or rubs. VASCULAR: Trace Edema. Peripheral pulses normal and equal in all extremities. ABDOMEN: Soft, non tender and non distended. No rebound or guarding, and no masses palpated. Bowel Sounds normal. MUSCULOSKELETAL: Good range of motion of all major joints. Extremities without clubbing, cyanosis. Trace bilateral lower extremity edema. NEUROLOGIC EXAM: Alert and oriented x 3 No focal sensory or strength deficits. Speech normal. Follows commands. PSYCHIATRIC: Mood normal. SKIN: No rash or lesions. - Constitutional Vitals: Temp Pulse Resp BP Pulse Ox 98.0 F 96 H 22 137/108 100 11/10/18 16:00 11/10/18 19:15 11/10/18 19:15 11/10/18 19:15 11/10/18 19:15 General appearance: Present: no acute distress, other (obese) Results - Labs CBC & Chem 7: 11/09/18 04:30 11/10/18 07:37 Labs: Laboratory Last Values WBC 12.1 K/mm3 (4.5-11.0) H 11/05/18 06:11 RBC 4.22 M/mm3 (3.65-5.03) 11/05/18 06:11 Hgb 11.6 gm/dl (11.8-15.2) L 11/09/18 04:30 Hct 36.6 % (35.5-45.6) 11/09/18 04:30 MCV 83 fl (84-94) L 11/05/18 06:11 MCH 26 pg (28-32) L 11/05/18 06:11 MCHC 32 % (32-34) 11/05/18 06:11 RDW 17.4 % (13.2-15.2) H 11/05/18 06:11 Plt Count 225 K/mm3 (140-440) 11/09/18 04:30 Lymph % (Auto) 17.0 % (13.4-35.0) 11/05/18 06:11 Ritchie % (Auto) 8.0 % (0.0-7.3) H 11/05/18 06:11 Eos % (Auto) 1.0 % (0.0-4.3) 11/05/18 06:11 Baso % (Auto) 0.9 % (0.0-1.8) 11/05/18 06:11 Lymph # 2.1 K/mm3 (1.2-5.4) 11/05/18 06:11 Ritchie # 1.0 K/mm3 (0.0-0.8) H 11/05/18 06:11 Eos # 0.1 K/mm3 (0.0-0.4) 11/05/18 06:11 Baso # 0.1 K/mm3 (0.0-0.1) 11/05/18 06:11 Seg Neutrophils % 73.1 % (40.0-70.0) H 11/05/18 06:11 Seg Neutrophils # 8.8 K/mm3 (1.8-7.7) H 11/05/18 06:11 PT 16.7 Sec. (12.2-14.9) H 11/03/18 14:29 INR 1.27 (0.87-1.13) H 11/03/18 14:29 APTT 27.8 Sec. (24.2-36.6) 11/03/18 14:29 D-Dimer 1464.46 ng/mlDDU (0-234) H 11/03/18 02:37 Heparin Anti-Xa Level 0.62 U.I./ml (0.3-0.7) 11/09/18 23:06 Sodium 138 mmol/L (137-145) 11/10/18 07:37 Potassium 4.3 mmol/L (3.6-5.0) 11/10/18 07:37 Chloride 104.7 mmol/L (98-107) 11/10/18 07:37 Carbon Dioxide 22 mmol/L (22-30) 11/10/18 07:37 Anion Gap 16 mmol/L 11/10/18 07:37 BUN 21 mg/dL (9-20) H 11/10/18 07:37 Creatinine 1.0 mg/dL (0.8-1.5) 11/10/18 07:37 Estimated GFR > 60 ml/min 11/10/18 07:37 BUN/Creatinine Ratio 21 % 11/10/18 07:37 Glucose 129 mg/dL (75-100) H 11/10/18 07:37 POC Glucose 227 (70-105) H 11/10/18 16:13 Calcium 9.0 mg/dL (8.4-10.2) 11/10/18 07:37 Phosphorus 2.70 mg/dL (2.5-4.5) 11/06/18 04:10 Magnesium 2.20 mg/dL (1.7-2.3) 11/06/18 04:10 Total Bilirubin 0.70 mg/dL (0.1-1.2) 11/10/18 07:37 Direct Bilirubin < 0.2 mg/dL (0-0.2) 11/03/18 08:45 Indirect Bilirubin 0.4 mg/dL 11/03/18 08:45 AST 38 units/L (5-40) 11/10/18 07:37 ALT 176 units/L (7-56) H 11/10/18 07:37 Alkaline Phosphatase 85 units/L (35-129) 11/10/18 07:37 Troponin T < 0.010 ng/mL (0.00-0.029) 11/07/18 12:53 Total Protein 7.3 g/dL (6.3-8.2) 11/10/18 07:37 Albumin 3.6 g/dL (3.9-5) L 11/10/18 07:37 Albumin/Globulin Ratio 1.0 % 11/10/18 07:37 TSH 2.950 mlU/mL (0.270-4.200) 11/03/18 02:39 Free T4 1.30 ng/dL (0.76-1.46) 11/03/18 02:39 Urine Color Yellow (Yellow) 11/03/18 17:28 Urine Turbidity Clear (Clear) 11/03/18 17:28 Urine pH 5.0 (5.0-7.0) 11/03/18 17:28 Ur Specific [place] 1.030 (1.003-1.030) 11/03/18 17:28 Urine Protein <15 mg/dl mg/dL (Negative) 11/03/18 17:28 Urine Glucose (UA) Neg mg/dL (Negative) 11/03/18 17:28 Urine Ketones Neg mg/dL (Negative) 11/03/18 17:28 Urine Blood Neg (Negative) 11/03/18 17:28 Urine Nitrite Neg (Negative) 11/03/18 17:28 Urine Bilirubin Neg (Negative) 11/03/18 17:28 Urine Urobilinogen < 2.0 mg/dL (<2.0) 11/03/18 17:28 Ur Leukocyte Esterase Neg (Negative) 11/03/18 17:28 Urine WBC (Auto) 4.0 /HPF (0.0-6.0) 11/03/18 17:28 Urine RBC (Auto) 2.0 /HPF (0.0-6.0) 11/03/18 17:28 Digoxin 0.9 ng/mL (0.9-2.0) 11/06/18 04:10 Urine Opiates Screen Presumptive negative 11/03/18 17:28 Urine Methadone Screen Presumptive negative 11/03/18 17:28 Ur Barbiturates Screen Presumptive negative 11/03/18 17:28 Ur Phencyclidine Scrn Presumptive negative 11/03/18 17:28 Ur Amphetamines Screen Presumptive negative 11/03/18 17:28 U Benzodiazepines Scrn Presumptive negative 11/03/18 17:28 Urine Cocaine Screen Presumptive negative 11/03/18 17:28 U Marijuana (THC) Screen Presumptive negative 11/03/18 17:28 Drugs of Abuse Note Disclamer 11/03/18 17:28 Hepatitis A IgM Ab Non-reactive (NonReactive) 11/08/18 04:14 Hep Bs Antigen Non-reactive (Negative) 11/08/18 04:14 Hep B Core IgM Ab Non-reactive (NonReactive) 11/08/18 04:14 Hepatitis C Antibody Non-reactive (NonReactive) 11/08/18 04:14 Active Medications - Current Medications Current Medications: Generic Name Dose Route Start Last Admin Trade Name Freq PRN Reason Stop Dose Admin Acetaminophen 650 mg 11/03/18 07:33 Tylenol PO Q4H PRN Pain MILD(1-3)/Fever >100.5/HO[place] Al Hydrox/Mg Hydrox/Simethicone 30 ml 11/03/18 07:33 Alum-Mag Hydrox-Simeth [id number]/5ml PO Q4H PRN Indigestion Apixaban 5 mg 11/10/18 22:00 Eliquis PO Q12HR JANINE Protocol Famotidine 20 mg 11/03/18 10:00 11/10/18 12:42 Pepcid PO 20 mg BID JANINE Administration Furosemide 40 mg 11/08/18 12:00 11/10/18 12:42 Lasix IV 40 mg DAILY JANINE Administration Sodium Chloride 500 mls @ 50 mls/hr 11/10/18 09:00 11/10/18 09:30 Nacl 0.9% 500 Ml IV 50 mls/hr DIRECT JANINE Administration Insulin Human Lispro 0 unit 11/05/18 11:30 11/10/18 17:48 Humalog SUB-Q 3 unit ACHS JANINE Administration Protocol Lisinopril 5 mg 11/03/18 10:00 11/10/18 12:42 Zestril PO 5 mg QDAY JANINE Administration Metoprolol Tartrate 50 mg 11/07/18 20:00 11/10/18 17:45 Lopressor PO 50 mg TID JANINE Administration Morphine Sulfate 2 mg 11/03/18 07:33 11/07/18 11:15 Morphine IV 2 mg Q4H PRN Administration Pain, Moderate (4-6) Ondansetron HCl 4 mg 11/03/18 07:33 11/08/18 16:17 Zofran IV 4 mg Q8H PRN Administration Nausea And Vomiting Oxycodone/Acetaminophen 1 tab 11/03/18 07:33 11/07/18 22:18 Percocet 5/325 PO 1 tab Q6H PRN Administration Pain, Moderate (4-6) Sodium Chloride 10 ml 11/03/18 10:00 11/10/18 12:42 Sodium Chloride Flush Syringe 10 Ml IV 10 ml BID JANINE Administration Sodium Chloride 10 ml 11/03/18 07:33 Sodium Chloride Flush Syringe 10 Ml IV PRN PRN LINE FLUSH Nutrition/Malnutrition Assess - Dietary Evaluation Nutrition/Malnutrition Findings: Nutrition Notes Start: 11/10/18 09:32 Freq: Status: Active Protocol: Document 11/10/18 09:32 CT (Rec: 11/10/18 09:36 CT [id number]) Co-Sign 11/10/18 09:32 LP Nutrition Notes Need for Assessment generated from: LOS Initial or Follow up Brief Note Current Diagnosis Coronary Artery Disease, Diabetes,Hypertension,Heart Failure Other Pertinent Diagnosis gout Current Diet NPO Height 6 ft 2 in Weight 140.6 kg [place] Body Weight (kg) 86.36 BMI 39.8 Subjective/Other Information Pt not in room at time of visit d/t ultrasound. Per RN and tech pt. eats 100% of all meals, plus additional snacks and tolerates well. Nutrition Intervention Revisit per MD consult or patient Sign Off request:
[2018-11-10] MEDS: ELIQUIS PO SCH (21:03)
[2018-11-10] MEDS: PERCOCET 5/325 PO PRN (21:03)
[2018-11-11 05:56] LABS: Hematocrit 36.3 % (35.5-45.6); Hemoglobin 11.8 gm/dl (11.8-15.2)
[2018-11-11 08:15] VITALS: BP 117/87
[2018-11-11] MEDS: HumaLOG SUB-Q SCH (08:30)
[2018-11-11] MEDS: PEPCID PO SCH (09:35)
[2018-11-11] MEDS: ELIQUIS PO SCH (09:35)
[2018-11-11] MEDS: LASIX IV SCH (09:35)
[2018-11-11] MEDS: LOPRESSOR PO SCH (09:35)
[2018-11-11] MEDS: ZESTRIL PO SCH (09:36)
[2018-11-11] MEDS: SODIUM CHLORIDE FLUSH SYRINGE 10 ML IV SCH (09:36)
--- NOTE | 2018-11-11 10:54 | Discharge Summary ---
Providers - Providers Date of Admission: 11/03/18 05:34 Attending physician: ABHIJEET CASAS MD 11/03/18 05:30 Consult to Physician [CONS] Urgent Comment: Consulting Provider: JEFERSON MORGAN Physician Instructions: Reason For Exam: atrial flutter with rvr Primary care physician: [facility], Hospitalization Reason for admission: heart failure Condition: Stable Hospital course: 57-year-old -[place] male with past medical history significant for congestive heart failure, diabetes mellitus, hypertension, gout, CAD, migraine presented to the emergency department complaining of left-sided chest pain that started 2 days ago but worsening yesterday. Pain was sharp, 9/10 in intensity, with no radiation, associated with shortness of breath, sweating, leg swelling and palpitation. Patient also admitted for dyspnea, orthopnea was the last 2 days. Patient denied cough, fever, chills, dysuria. (1) Acute HFrEF (heart failure with reduced ejection fraction) Current Visit: Yes Status: Acute Plan to address problem: Patient congestive heart failure ejection fraction 15% continue diuretics with Lasix, beta sampson and DAMIEN inhibitor. (2) Atrial flutter with rapid ventricular response Current Visit: Yes Status: Acute Plan to address problem: he underwent cardioversion. will monitor to ensure remains in NSR by am (3) Elevated LFTs Current Visit: Yes Status: Acute Plan to address problem: Patient cannot use amiodarone secondary to elevated liver function tests. Continue metoprolol for A. fib. Hepatitis serology is negative Check ultrasound OF Liver- NEGATIVE LFT improving. was likely elevated secondary to transient injury. counselling on all hepatotoxic elements provided (4) HTN (hypertension) Current Visit: Yes Status: Acute Plan to address problem: At present patient has fair control of hypertension. (5) Diabetes Current Visit: Yes Status: Chronic Plan to address problem: Diabetes continues to have optimal control as well. (6) Gout On colchine (7) Obesity Current Visit: Yes Status: Chronic Disposition: - TO HOME OR SELFCARE Time spent for discharge: 35 mins Core Measure Documentation - Palliative Care Palliative Care/ Comfort Measures: Not Applicable - Core Measures Any of the following diagnoses?: heart failure - Heart Failure Discharge Requirements DAMIEN/ARB for LVSD if EF <40%: Yes Beta sampson at discharge: Yes Exam - Physical Exam Narrative exam: VITAL SIGNS: Reviewed. GENERAL: The patient appeared well nourished and normally developed, Vital signs as documented. HEAD: No signs of head trauma. EYES: Pupils are equal. Extraocular motions intact. EARS: Hearing grossly intact. MOUTH: Oropharynx is normal. NECK: No adenopathy, no JVD. CHEST: Chest with clear breath sounds bilaterally. No wheezes, rales, or rhonchi. CARDIAC: Irregularly irregular with tachycardia. S1 and S2, without murmurs, gallops, or rubs. VASCULAR: Trace Edema. Peripheral pulses normal and equal in all extremities. ABDOMEN: Soft, non tender and non distended. No rebound or guarding, and no masses palpated. Bowel Sounds normal. MUSCULOSKELETAL: Good range of motion of all major joints. Extremities without clubbing, cyanosis. Trace bilateral lower extremity edema. NEUROLOGIC EXAM: Alert and oriented x 3 No focal sensory or strength deficits. Speech normal. Follows commands. PSYCHIATRIC: Mood normal. SKIN: No rash or lesions. - Constitutional Vitals: Temp Pulse Resp BP Pulse Ox 99.2 F 87 20 117/87 97 11/11/18 08:10 11/11/18 10:00 11/11/18 10:00 11/11/18 08:10 11/11/18 10:00 Plan Activity: advance as tolerated, fall precautions Diet: low fat, low salt, diabetic Special Instructions: record daily BP diary, record blood sugar diary, smoking cessation Follow up with: MILLER PRADO MD [Staff Physician] - 7 Days FRED RICHMOND MD [Staff Physician] - 7 Days (Follow up in our [place] office with Dr. Keyshawn Richmond on 11/16/2018 @ 2:45PM. ) [facility] MD LEIGHANN [Primary Care Provider] - 7 Days Prescriptions: Apixaban [Eliquis] 5 mg PO Q12HR #60 tablet Furosemide [Lasix TAB] 40 mg PO QDAY #30 tablet Metoprolol [Lopressor TAB] 50 mg PO TID #30 tablet methylPREDNISolone [Medrol Dose Andrea] 4 mg PO DAILY 6 Days #1 pkg Famotidine [Pepcid] 20 mg PO BID #60 tablet oxyCODONE /ACETAMINOPHEN [Percocet 5/325 mg] 1 tab PO Q4-6H PRN #14 tablet PRN Reason: Pain Lisinopril [Zestril TAB] 5 mg PO QDAY #30 tablet
[2018-11-11] MEDS: PERCOCET 5/325 PO PRN (11:11)
--- NOTE | 2018-11-11 11:35 | Progress Note ---
Assessment and Plan Currently stable cardiac status. Pt maintained NSR overnight. Pt may discharge home from cardiology standpoint. At discharge, convert IV lasix to PO 40mg daily. Cont all other present cardiac management. Plan to readdress AICD candidacy as OP. Follow up in our [place] office with Dr. Keyshawn Wade (KM unavailable) on 11/16/2018 @ 2:45PM. The patient has been seen in conjunction with Dr. Gamble who agrees with the assessment and plan of care. - Patient Problems (1) Atrial flutter with rapid ventricular response Current Visit: Yes Status: Acute (2) Acute HFrEF (heart failure with reduced ejection fraction) Current Visit: Yes Status: Acute (3) Chest pain Current Visit: Yes Status: Resolved (4) Nonischemic dilated cardiomyopathy Current Visit: Yes Status: Chronic (5) Diabetes Current Visit: Yes Status: Chronic (6) Obesity Current Visit: Yes Status: Chronic (7) Elevated LFTs Current Visit: Yes Status: Acute (8) Normal coronary arteries Current Visit: Yes Status: Chronic Subjective Date of service: 11/11/18 Principal diagnosis: HF; AFlutter Interval history: pt resting in bed, states he is feeling well today. he maintained NSR overnight. Objective Last Vital Signs Temp 99.2 F 11/11/18 08:10 Pulse 87 11/11/18 10:00 Resp 20 11/11/18 10:00 BP 117/87 11/11/18 08:10 Pulse Ox 97 11/11/18 10:00 - Physical Examination General: No Apparent Distress HEENT: Positive: PERRL, Normocephaly, Mucus Membranes Moist Neck: Positive: neck supple, trachea midline Cardiac: Positive: Reg Rate and Rhythm, S1/S2 Lungs: Positive: Decreased Breath Sounds Neuro: Positive: Grossly Intact Abdomen: Positive: Soft. Negative: Tender Skin: Negative: Rash Musculoskeletal: No Pain Extremities: Absent: edema - Labs and Meds CBC 11/11/18 Range/Units 05:21 Hgb 11.8 (11.8-15.2) gm/dl Hct 36.3 (35.5-45.6) % Plt Count 239 (140-440) K/mm3 - Imaging and Cardiology EKG: report reviewed, image reviewed Echo: report reviewed (EF 15-20%, LA mod to severely dilated, RA severely dilated, RV systolic function mod reduced, mod MR, RVSP 48mmHg. ) Cardiac cath: report reviewed ([place] 04/2018 normal coronaries) - Telemetry EKG Rhythm: Sinus Rhythm
== END 2018-11-11 12:05 | disposition home or self-care (01) | DRG 308 ==
LOC: ED 02:08 → CC1 05:34 → IMCU 11-07 15:43 → 4A 11-10 22:04
PROVIDERS: ADMIT Internal Medicine; ATTEND Internal Medicine
PROC: 5A2204Z Restoration of Cardiac Rhythm, Single (ICD-10-PCS; principal; 2018-11-10)
PROC: B24BZZ4 Ultrasonography of Heart with Aorta, Transesophageal (ICD-10-PCS; 2018-11-10)
DX: I48.1 Persistent atrial fibrillation (principal); I50.23 Acute on chronic systolic (congestive) heart failure; I48.92 Unspecified atrial flutter; I11.0 Hypertensive heart disease with heart failure; M10.9 Gout, unspecified; G43.909 Migraine, unspecified, not intractable, without status migrainosus; I25.10 Atherosclerotic heart disease of native coronary artery without angina pectoris; R79.89 Other specified abnormal findings of blood chemistry; D72.829 Elevated white blood cell count, unspecified; E11.65 Type 2 diabetes mellitus with hyperglycemia; I42.0 Dilated cardiomyopathy; E66.9 Obesity, unspecified; Z79.899 Other long term (current) drug therapy; Z68.38 Body mass index [BMI] 38.0-38.9, adult; Z79.84 Long term (current) use of oral hypoglycemic drugs
CPT/HCPCS: 36415; 71045; 71275; 76705; 80048; 80053; 80074; 80076; 80162; 80307; 81001; 82962; 83735; 84100; 84439; 84443; 84484; 85014; 85018; 85025; 85049; 85379; 85520; 85610; 85730; 93005; 93010; 93306; 93312; 93320; 93325; 94760; G0378; J1160; J1170; J1644; J1815; J1940; J2250; J2270; J2405; J2704; J7030; J7040; J7050; Q9967

== ENCOUNTER 2018-11-30 15:06 | Inpatient (IN) | payer SELFPAY ==
--- NOTE | 2018-11-30 15:34 | Emergency Department Report ---
Chief Complaint: Chest Pain Stated Complaint: CHEST PAIN/SOB Time Seen by Provider: 11/30/18 15:29 - HPI History of Present Illness: PT HERE WITH CP AND SOB DC 1 M AGO EF 15-20 TO MAIN ED - Exam Vital Signs: Vital Signs 11/30/18 15:29 Temperature 97.4 F L Pulse Rate 57 L Respiratory 22 Rate Blood Pressure 119/66 [Right] O2 Sat by Pulse 100 Oximetry MSE screening note: Focused history and physical exam performed. Due to findings the following was ordered: ED Disposition for MSE Condition: Stable
--- NOTE | 2018-11-30 16:35 | XRay Report ---
PROCEDURE: XR CHEST ROUTINE 2V TECHNIQUE: PA and lateral views of the chest HISTORY: Chest Pain COMPARISONS: Chest x-ray dated November 03, 2018 FINDINGS: There is prominence of the interstitial markings in both lungs similar in appearance to the previous study. There is no evidence of focal infiltrate, pneumothorax or pleural fluid collection. The cardiac silhouette is enlarged similar in appearance to the previous study. The thoracic aorta is mildly tortuous. There is prominence of the pulmonary venous vasculature consistent with pulmonary venous congestion s imilar in appearance to the previous study. The bony structures are unremarkable. IMPRESSION: 1. Enlarged cardiac silhouette not significantly changed. 2. Prominence of the interstitial markings and evidence of pulmonary venous congestion not significan tly changed since previous chest x-ray dated November 03, 2018.. This document is electronically signed by Larissa Khalil MD., Nov 30 2018 04:33:24 PM ET
[2018-11-30 16:53] LABS: Basophils # (Auto) 0.1 K/mm3 (0.0-0.1); Basophils % (Auto) 1.4 % (0.0-1.8); Eosinophils # (Auto) 0.1 K/mm3 (0.0-0.4); Eosinophils % (Auto) 0.8 % (0.0-4.3); Hematocrit 42.7 % (35.5-45.6); Hemoglobin 13.5 gm/dl (11.8-15.2); Lymphocytes # (Auto) 2.8 K/mm3 (1.2-5.4); Lymphocytes % (Auto) 25.7 % (13.4-35.0); Mean Corpuscular HGB Conc 32 % (32-34); Mean Corpuscular Volume 81 fl (84-94); Monocytes # (Auto) 0.7 K/mm3 (0.0-0.8); Monocytes % (Auto) 6.5 % (0.0-7.3); Platelet Count 277 K/mm3 (140-440); Red Blood Count 5.28 M/mm3 (3.65-5.03); Red Cell Distribution Width 17.6 % (13.2-15.2)
[2018-11-30] MEDS ORDERED: CARDIZEM IV STA (17:00)
[2018-11-30 17:04] LABS: INR 1.4 (0.87-1.13)
[2018-11-30 17:05] LABS: Partial Thromboplastin Time 31.3 Sec. (24.2-36.6)
--- NOTE | 2018-11-30 17:08 | Emergency Department Report ---
ED General Adult HPI - General Chief complaint: Chest Pain Stated complaint: CHEST PAIN/SOB Time Seen by Provider: 11/30/18 15:29 Source: patient Mode of arrival: Ambulatory Limitations: No Limitations - History of Present Illness Initial comments: Mr. Briscoe is a 57-year-old male with past medical history of congestive heart failure, diabetes mellitus, hypertension, gout, coronary artery disease, atrial fibrillation who presents with chest pain shortness of breath and weakness. Also has a sensation of irregular heartbeat. He is on anticoagulation according Eliquis. Discharge medications from October last month include furosemide, metoprolol, famotidine, Percocet, lisinopril. 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 Was diagnosed with heart failure at that time Last month, patient underwent a JUSTINE cardiac version on IV heparin, according to echo there was no evidence of intracardiac thrombus. He does have severe dilated cardiomyopathy with estimated ejection fraction 15-20% without significant valvular disease. -: Gradual, days(s) (1-2) Location: chest Severity scale (0 -10): 7 Consistency: constant Improves with: none Worsens with: none Associated Symptoms: malaise, shortness of breath, other (palpitations) - Related Data Previous Rx's Medication Instructions Recorded Last Taken Type Allopurinol [Zyloprim] 100 mg PO QDAY #30 tablet 02/25/14 Unknown Rx Colchicine 0.6 mg PO DAILY #14 capsule 09/29/17 Unknown Rx Apixaban [Eliquis] 5 mg PO Q12HR #60 tablet 11/11/18 Unknown Rx Famotidine [Pepcid] 20 mg PO BID #60 tablet 11/11/18 Unknown Rx Furosemide [Lasix TAB] 40 mg PO QDAY #30 tablet 11/11/18 Unknown Rx Lisinopril [Zestril TAB] 5 mg PO QDAY #30 tablet 11/11/18 Unknown Rx Metoprolol [Lopressor TAB] 50 mg PO TID #30 tablet 11/11/18 Unknown Rx methylPREDNISolone [Medrol Dose 4 mg PO DAILY 6 Days #1 pkg 11/11/18 Unknown Rx Andrea] oxyCODONE /ACETAMINOPHEN [Percocet 1 tab PO Q4-6H PRN #14 tablet 11/11/18 Unknown Rx 5/325 mg] Allergies Allergy/AdvReac Type Severity Reaction Status Date / Time No Known Allergies Allergy Verified 11/30/18 15:13 ED Review of Systems ROS: Stated complaint: CHEST PAIN/SOB Other details as noted in HPI Comment: All other systems reviewed and negative Constitutional: malaise. denies: fever Respiratory: shortness of breath. denies: cough Cardiovascular: chest pain, palpitations ED Past Medical Hx - Past Medical History Previous Medical History?: Yes Hx Hypertension: Yes Hx Heart Attack/AMI: No Hx Congestive Heart Failure: Yes Hx Diabetes: Yes Hx Deep Vein Thrombosis: No Hx Liver Disease: No Hx Arthritis: Yes (gout) Hx Headaches / Migraines: Yes Hx Seizures: No Hx Asthma: No Hx COPD: No Hx Dementia: No Hx HIV: No Additional medical history: gout. OBESITY - Surgical History Hx Coronary Stent: No Hx Pacemaker: No Hx Internal Defibrillator: No - Social History Smoking Status: Never Smoker Substance Use Type: None - Medications Home Medications: Home Medications Medication Instructions Recorded Confirmed Last Taken Type Allopurinol [Zyloprim] 100 mg PO QDAY #30 tablet 02/25/14 Unknown Rx Colchicine 0.6 mg PO DAILY #14 capsule 09/29/17 Unknown Rx Apixaban [Eliquis] 5 mg PO Q12HR #60 tablet 11/11/18 Unknown Rx Famotidine [Pepcid] 20 mg PO BID #60 tablet 11/11/18 Unknown Rx Furosemide [Lasix TAB] 40 mg PO QDAY #30 tablet 11/11/18 Unknown Rx Lisinopril [Zestril TAB] 5 mg PO QDAY #30 tablet 11/11/18 Unknown Rx Metoprolol [Lopressor TAB] 50 mg PO TID #30 tablet 11/11/18 Unknown Rx methylPREDNISolone [Medrol Dose 4 mg PO DAILY 6 Days #1 pkg 11/11/18 Unknown Rx Andrea] oxyCODONE /ACETAMINOPHEN [Percocet 1 tab PO Q4-6H PRN #14 tablet 11/11/18 Unk nown Rx 5/325 mg] ED Physical Exam - General Limitations: No Limitations General appearance: alert, in no apparent distress - Head Head exam: Present: atraumatic, normocephalic - Eye Eye exam: Present: normal appearance - ENT ENT exam: Present: mucous membranes moist, other (several absent teeth) - Neck Neck exam: Present: normal inspection - Respiratory Respiratory exam: Present: normal lung sounds bilaterally. Absent: respiratory distress, wheezes, rales, rhonchi - Cardiovascular Cardiovascular Exam: Present: tachycardia, irregular rhythm. Absent: systolic murmur, diastolic murmur, rubs, gallop, clicks - GI/Abdominal GI/Abdominal exam: Present: soft, normal bowel sounds. Absent: distended, tenderness, guarding, rebound - Rectal Rectal exam: Present: deferred - Extremities Exam Extremities exam: Present: normal inspection - Back Exam Back exam: Present: normal inspection - Neurological Exam Neurological exam: Present: alert, oriented X3 - Psychiatric Psychiatric exam: Present: normal affect, normal mood - Skin Skin exam: Present: warm, dry, intact, normal color. Absent: rash ED Course Vital Signs 11/30/18 11/30/18 11/30/18 15:29 16:47 16:48 Temperature 97.4 F L Pulse Rate 57 L 134 H Respiratory 22 10 L 16 Rate Blood Pressure Blood Pressure 119/66 [Right] O2 Sat by Pulse 100 Oximetry 11/30/18 11/30/18 11/30/18 16:49 16:51 16:53 Temperature Pulse Rate 135 H 133 H 129 H Respiratory 24 19 16 Rate Blood Pressure 95/59 95/59 Blood Pressure [Right] O2 Sat by Pulse 99 99 Oximetry 11/30/18 11/30/18 11/30/18 16:55 16:57 17:42 Temperature Pulse Rate 131 H 136 H 137 H Respiratory 13 26 H Rate Blood Pressure 95/59 95/59 Blood Pressure [Right] O2 Sat by Pulse 100 100 Oximetry 11/30/18 19:04 Temperature Pulse Rate 126 H Respiratory Rate Blood Pressure 95/51 Blood Pressure [Right] O2 Sat by Pulse Oximetry ED Medical Decision Making - Lab Data Result diagrams: 11/30/18 16:20 11/30/18 16:20 - Radiology Data Radiology results: report reviewed cxr: NAP, cardiomegaly - Medical Decision Making Mr. Briscoe presents with AFIB RVR, resulting in chest pain and dyspnea. According to previous consultation, LHC performed at [facility] showed normal coronary anatomy. I suspect demand ischemia due to rapid arrhythmia vs discomfort of arrhythmia. Diltiazem small dose boluses x 2 (10 mg each) administered with diltiazam infusion. Plum Packer Dr. Aguilar consulted and agreed with ICU admission. Admitted to hospitalist service in fair condition. Critical Care Time: Yes Critical care time in (mins) excluding proc time.: 40 Critical care attestation.: If time is entered above; I have spent that time in minutes in the direct care of this critically ill patient, excluding procedure time. 40 minutes of critical care time excluding procedures were used in the care of the patient. Patient required multiple assessments and interventions. I reviewed the electronic medical record. I spoke with consultants involved in the care of the patient. ED Disposition Clinical Impression: Atrial flutter with rapid ventricular response, Nonischemic dilated cardiomyopathy Disposition: DC-[id number] OP ADMIT IP TO THIS HOSP Is pt being admited?: Yes Does the pt Need Aspirin: No Condition: Stable
[2018-11-30 17:11] LABS: Alanine Aminotransferase 48 units/L (7-56); Albumin 3.9 g/dL (3.9-5); BUN/Creatinine Ratio 23; Blood Urea Nitrogen 25 mg/dL (9-20); Calcium 9.6 mg/dL (8.4-10.2); Hemolysis Index 43
[2018-11-30] MEDS ORDERED: ZOFRAN ONE (17:40)
[2018-11-30] MEDS ORDERED: CARDIZEM IV ONE (18:48)
[2018-11-30] MEDS ORDERED: CARDIZEM 100 MG in D5W 80 ML IV SCH (19:00)
--- NOTE | 2018-11-30 22:17 | History and Physical Report ---
History of Present Illness Date of examination: 11/30/18 History of present illness: 57-year-old man with a history of hypertension, diabetes, gout, coronary artery disease, CHF, A. fib flutter, conmes to the ER with complains of shortness, feeling weak and dizzy. Also complained of chest pain in the epigastric area w hich she describes constant. Sharp, intensity 5/10, no radiation, cannot identify exacerbating or relieving modalities. Admits to nausea vomiting, diaphoresis palpitation. Patient was just recently discharged,, status post cardioversion in October, states he is compliant with his medications. The patient was started on Cardene drip, this was held secondary to hypotension. Review of systems Constitutional: no weight loss, chills, fever Ears, eyes, nose, mouth and throat: no nasal congestion, no nasal discharge, no sinus pressure, no vision change, no red eye. Neck: No neck pain or rigidity. Cardiovascular: no palpitations Respiratory: no cough, +shortness of breath Gastrointestinal: no hematochezia, abdominal pain Genitourinary : no frequency , no hematuria Musculoskeletal: no joint swelling or muscle ache Integumentary: no rash, no pruritis Neurological: no parathesias, no focal weakness Endocrine: no cold or heat intolerance, no polyuria or polydipsia Hematologic/Lymphatic: no easy bruising, no easy bleeding, no gland swelling Allergic/Immunologic: no urticaria, no angioedema. PAST MEDICAL HISTORY:hypertension, diabetes, gout, coronary artery disease, CHF, A. fib flutter PAST SURGICAL HISTORY: None SOCIAL HISTORY: Denies alcohol, drugs, tobacco FAMILY HISTORY: Hypertension Medications and Allergies Allergies Allergy/AdvReac Type Severity Reaction Status Date / Time No Known Allergies Allergy Verified 11/30/18 15:13 Home Medications Medication Instructions Recorded Confirmed Last Taken Type Allopurinol [Zyloprim] 100 mg PO QDAY #30 tablet 02/25/14 Unknown Rx Colchicine 0.6 mg PO DAILY #14 capsule 09/29/17 Unknown Rx Apixaban [Eliquis] 5 mg PO Q12HR #60 tablet 11/11/18 Unknown Rx Famotidine [Pepcid] 20 mg PO BID #60 tablet 11/11/18 Unknown Rx Furosemide [Lasix TAB] 40 mg PO QDAY #30 tablet 11/11/18 Unknown Rx Lisinopril [Zestril TAB] 5 mg PO QDAY #30 tablet 11/11/18 Unknown Rx Metoprolol [Lopressor TAB] 50 mg PO TID #30 tablet 11/11/18 Unknown Rx methylPREDNISolone [Medrol Dose 4 mg PO DAILY 6 Days #1 pkg 11/11/18 Unknown Rx Andrea] oxyCODONE /ACETAMINOPHEN [Percocet 1 tab PO Q4-6H PRN #14 tablet 11/11/18 Unknown Rx 5/325 mg] Active Meds: Active Medications Diltiazem HCl 100 mg/ Dextrose 100 mls @ 5 mls/hr IV DIRECT JANINE; Protocol Last Infusion: 11/30/18 21:00 Dose: 0 mg/hr, 0 mls/hr Documented by: Exam - Physical Exam Narrative exam: General Apperance: The patient lying in bed, breathing comfortable HEENT: Normocephalic, atraumatic. Pupils equally round and reactive to light, EOMI, no sclericterus or JVD or thyromegaly or nodule. , no carotid bruit, mucous membranes moist, no exudate or erythema Heart: S1-S2, irregular is rhythm Lungs: Clear to auscultation bilaterally, breathing comfortable Abdomen: Positive bowel sounds, soft, nontender, nondistended, no organomegaly Extremities: No edema cyanosis clubbing Skin: no rash, nodule, warm and dry Neuro: cranial nerves 2-12 intact, speech is fluent, motor/sensory intact - Constitutional Vitals: Temp Pulse Resp BP Pulse Ox 98.2 F 125 H 17 104/82 95 11/30/18 19:40 11/30/18 21:31 11/30/18 21:45 11/30/18 21:45 11/30/18 21:45 Results - Labs CBC & Chem 7: 11/30/18 16:20 11/30/18 16:20 Labs: Abnormal lab results 11/30/18 11/30/18 11/30/18 Range/Units 16:20 16:20 16:20 RBC 5.28 H (3.65-5.03) M/mm3 MCV 81 L (84-94) fl MCH 26 L (28-32) pg RDW 17.6 H (13.2-15.2) % PT 18.1 H (12.2-14.9) Sec. INR 1.40 H (0.87-1.13) Sodium 136 L (137-145) mmol/L Carbon Dioxide 15 L (22-30) mmol/L BUN 25 H (9-20) mg/dL Glucose 264 H (75-100) mg/dL NT-Pro-B Natriuret Pep (0-900) pg/mL 11/30/18 Range/Units 16:20 RBC (3.65-5.03) M/mm3 MCV (84-94) fl MCH (28-32) pg RDW (13.2-15.2) % PT (12.2-14.9) Sec. INR (0.87-1.13) Sodium (137-145) mmol/L Carbon Dioxide (22-30) mmol/L BUN (9-20) mg/dL Glucose (75-100) mg/dL NT-Pro-B Natriuret Pep 4277 H (0-900) pg/mL - Imaging and Cardiology EKG: image reviewed Chest x-ray: report reviewed Assessment and Plan Assessment A. 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
[2018-11-30 22:59] LABS: Bilirubin,Urine NEG (Negative); Blood,Urine NEG (Negative); Color,Urine Yellow (Yellow); Mucus,Urine FEW /HPF; Protein,Urine <15 mg/dL mg/dL (Negative); Urobilinogen,Urine < 2.0 mg/dL (<2.0)
[2018-11-30] MEDS ORDERED: LANOXIN IV ONE ×2 (23:57)
[2018-12-01] MEDS ORDERED: TYLENOL PO PRN (00:37)
[2018-12-01] MEDS ORDERED: D50W (25GM) Syringe IV PRN (00:37)
[2018-12-01 05:14] LABS: Basophils # (Auto) 0.1 K/mm3 (0.0-0.1); Eosinophils # (Auto) 0.1 K/mm3 (0.0-0.4); Eosinophils % (Auto) 1.4 % (0.0-4.3); Hematocrit 39.4 % (35.5-45.6); Hemoglobin 12.7 gm/dl (11.8-15.2); Lymphocytes # (Auto) 2.8 K/mm3 (1.2-5.4); Lymphocytes % (Auto) 29.6 % (13.4-35.0); Mean Corpuscular HGB Conc 32 % (32-34); Mean Corpuscular Volume 81 fl (84-94); Monocytes # (Auto) 0.9 K/mm3 (0.0-0.8); Monocytes % (Auto) 9.5 % (0.0-7.3); Platelet Count 244 K/mm3 (140-440); Red Blood Count 4.87 M/mm3 (3.65-5.03); Red Cell Distribution Width 17.6 % (13.2-15.2)
[2018-12-01 05:36] LABS: BUN/Creatinine Ratio 22; Blood Urea Nitrogen 24 mg/dL (9-20); Calcium 9.1 mg/dL (8.4-10.2); Hemolysis Index 17
--- NOTE | 2018-12-01 08:43 | Progress Note ---
Assessment and Plan George cardona with RVR - s/p ablation on 10/2018 - changed to amioderone drip today, cardiology following - cont eliquis Chest pain, monitor trop, follow cardiology eval Hypertension, resume home meds Diabetes type 2. SSI as needed CHF, stable - Ef 15- 20% on echo 10/2018 Gout - On colchine Dvt Px, on eliquis Brief History; The pt is a 57-year-old male with a past medical history of dilated NICMP, atrial flutter s/p JUSTINE guided DCCV with successful conversion to NSR on 11/10/2018, on Eliquis, HFrEF, DM, obesity, presented this time with palpitation and chest pain. He noted to be on atrial fibrillation, placed on cerdizem drip and admitted for further evaluation and management. Subjective Date of service: 12/01/18 Interval history: Patient seen and examined denies chest pain, breathing improved Objective - Constitutional Vitals: Vital Signs - 12hr 11/30/18 11/30/18 11/30/18 20:45 21:01 21:15 Pulse Rate 126 H 129 H 127 H Pulse Rate [ Left Radial] Respiratory 23 15 19 Rate Blood Pressure 96/77 94/76 94/76 O2 Sat by Pulse 100 100 97 Oximetry 11/30/18 11/30/18 12/01/18 21:31 21:45 00:10 Pulse Rate 125 H 125 H Pulse Rate [ Left Radial] Respiratory 15 17 Rate Blood Pressure 125/57 104/82 104/69 O2 Sat by Pulse 99 95 Oximetry 12/01/18 12/01/18 12/01/18 00:15 00:30 00:45 Pulse Rate 124 H 123 H 122 H Pulse Rate [ Left Radial] Respiratory 11 L 17 19 Rate Blood Pressure 106/66 108/67 108/67 O2 Sat by Pulse 97 96 97 Oximetry 12/01/18 12/01/18 12/01/18 01:01 01:15 01:31 Pulse Rate 127 H 123 H 123 H Pulse Rate [ Left Radial] Respiratory 16 21 13 Rate Blood Pressure 94/46 94/46 94/46 O2 Sat by Pulse 88 99 99 Oximetry 12/01/18 12/01/18 12/01/18 01:45 02:00 02:03 Pulse Rate 123 H 123 H Pulse Rate [ 105 H Left Radial] Respiratory 18 21 Rate Blood Pressure 94/46 95/67 O2 Sat by Pulse 94 96 98 Oximetry 12/01/18 12/01/18 05:01 06:00 Pulse Rate 123 H 123 H Pulse Rate [ Left Radial] Respiratory 12 20 Rate Blood Pressure 104/72 101/68 O2 Sat by Pulse 99 98 Oximetry General appearance: Present: no acute distress, well-nourished - EENT Eyes: PERRL, EOM intact ENT: hearing intact, clear oral mucosa Ears: bilateral: normal - Neck Neck: supple, normal ROM - Respiratory Respiratory effort: normal Respiratory: bilateral: CTA - Cardiovascular Rhythm: regular Heart Sounds: Present: S1 & S2. Absent: gallop, rub Extremities: pulses intact, No edema, normal color, Full ROM - Gastrointestinal General gastrointestinal: Present: soft, non-tender, non-distended, normal bowel sounds - Genitourinary Male genitourinary: normal - Integumentary Integumentary: clear, warm, dry - Musculoskeletal Musculoskeletal: 1, strength equal bilaterally - Neurologic Neurologic: moves all extremities - Psychiatric Psychiatric: memory intact, appropriate mood/affect, intact judgment & insight - Labs CBC & Chem 7: 12/01/18 04:52 12/02/18 09:40 Labs: Abnormal lab results 11/30/18 11/30/18 11/30/18 Range/Units 16:20 16:20 16:20 RBC 5.28 H (3.65-5.03) M/mm3 MCV 81 L (84-94) fl MCH 26 L (28-32) pg RDW 17.6 H (13.2-15.2) % Hawkins % (Auto) (0.0-7.3) % Hawkins # (0.0-0.8) K/mm3 PT 18.1 H (12.2-14.9) Sec. INR 1.40 H (0.87-1.13) Sodium 136 L (137-145) mmol/L Chloride (98-107) mmol/L Carbon Dioxide 15 L (22-30) mmol/L BUN 25 H (9-20) mg/dL Glucose 264 H (75-100) mg/dL POC Glucose (70-105) NT-Pro-B Natriuret Pep (0-900) pg/mL Urine WBC (Auto) (0.0-6.0) /HPF 11/30/18 11/30/18 12/01/18 Range/Units 16:20 Unknown 04:52 RBC (3.65-5.03) M/mm3 MCV 81 L (84-94) fl MCH 26 L (28-32) pg RDW 17.6 H (13.2-15.2) % Hawkins % (Auto) 9.5 H (0.0-7.3) % Hawkins # 0.9 H (0.0-0.8) K/mm3 PT (12.2-14.9) Sec. INR (0.87-1.13) Sodium (137-145) mmol/L Chloride (98-107) mmol/L Carbon Dioxide (22-30) mmol/L BUN (9-20) mg/dL Glucose (75-100) mg/dL POC Glucose (70-105) NT-Pro-B Natriuret Pep 4277 H (0-900) pg/mL Urine WBC (Auto) 14.0 H (0.0-6.0) /HPF 12/01/18 12/01/18 Range/Units 04:52 08:30 RBC (3.65-5.03) M/mm3 MCV (84-94) fl MCH (28-32) pg RDW (13.2-15.2) % Hawkins % (Auto) (0.0-7.3) % Hawkins # (0.0-0.8) K/mm3 PT (12.2-14.9) Sec. INR (0.87-1.13) Sodium (137-145) mmol/L Chloride 108.6 H (98-107) mmol/L Carbon Dioxide 19 L (22-30) mmol/L BUN 24 H (9-20) mg/dL Glucose 145 H (75-100) mg/dL POC Glucose 141 H (70-105) NT-Pro-B Natriuret Pep (0-900) pg/mL Urine WBC (Auto) (0.0-6.0) /[facility]
[2018-12-01] MEDS: HumaLOG SUB-Q SCH ×4 (09:01→22:38)
[2018-12-01] MEDS ORDERED: PERCOCET 5/325 ONE (09:53)
[2018-12-01] MEDS ORDERED: COLCHICINE ONE (09:57)
[2018-12-01] MEDS ORDERED: PEPCID ONE (09:57)
[2018-12-01] MEDS: COLCHICINE PO SCH (10:01)
[2018-12-01] MEDS: PERCOCET 5/325 PO PRN (10:01)
[2018-12-01] MEDS: PEPCID PO SCH ×2 (10:01→22:38)
[2018-12-01] MEDS: SODIUM CHLORIDE FLUSH SYRINGE 10 ML IV SCH ×2 (10:02→22:38)
[2018-12-01] MEDS ORDERED: CORDARONE 150 MG in D5W 97 ML IV ONE (11:33)
--- NOTE | 2018-12-01 11:39 | Consultation ---
History of Present Illness Consult date: 12/01/18 Requesting physician: MARCUS FERNANDEZ Consult reason: atrial fibrillation History of present illness: The pt is a 57-year-old male with a past medical history of dilated NICMP, atrial flutter, HFrEF, DM, obesity. He has been seen by our practice on prior hospitalization but has admittedly not been compliant with OP follow up. He presented with c/o intermittent palpitations since Thursday morning. The palpitations are sometimes associated with SOB. He denies any chest pain, n/v, diaphoresis, dizziness or syncope. He reports compliance with his home medication regimen, including Eliquis. 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 On evaluation, he does not appear to be in acutely decompensated HF. He is noted to be in AFlutter RVR with 2:1 conduction, HR in 120s. BPs borderline low. Of note, pt was discharged from [facility] on 11/11/2018 following treatment for HFrEF and new onset atrial flutter with RVR. We were hesitant to initiate amiodarone at that time due to elevated LFTs. He required JUSTINE guided DCCV with successful conversion to NSR on 11/10/2018 and was discharged home on Eliquis. Pt was hospitalized at [facility] in 04/2018 where he was initially diagnosed with HF. LHC at that time showed normal coronaries with severe dilated CMP, EF <15%. Echo done 11/03/2018 at [facility] showed EF 15-20%, LV severely dilated, LA mod to severely dilated, RV mod dilated, RV systolic function mod reduced, RA severely dilated, mild to mod MR, RVSP 48mmHg. Past History Past Medical History: diabetes, heart failure Social history: denies: smoking, alcohol abuse, prescription drug abuse Medications and Allergies Allergies Allergy/AdvReac Type Severity Reaction Status Date / Time No Known Allergies Allergy Verified 11/30/18 15:13 Home Medications Medication Instructions Recorded Confirmed Last Taken Type Allopurinol [Zyloprim] 100 mg PO QDAY #30 tablet 02/25/14 12/01/18 Unknown Rx Colchicine 0.6 mg PO DAILY #14 capsule 09/29/17 12/01/18 Unknown Rx Apixaban [Eliquis] 5 mg PO Q12HR #60 tablet 11/11/18 12/01/18 Unknown Rx Famotidine [Pepcid] 20 mg PO BID #60 tablet 11/11/18 12/01/18 Unknown Rx Furosemide [Lasix TAB] 40 mg PO QDAY #30 tablet 11/11/18 12/01/18 Unknown Rx Lisinopril [Zestril TAB] 5 mg PO QDAY #30 tablet 11/11/18 12/01/18 Unknown Rx Metoprolol [Lopressor TAB] 50 mg PO TID #30 tablet 11/11/18 12/01/18 Unknown Rx methylPREDNISolone [Medrol Dose 4 mg PO DAILY 6 Days #1 pkg 11/11/18 12/01/18 Unknown Rx Andrea] oxyCODONE /ACETAMINOPHEN [Percocet 1 tab PO Q4-6H PRN #14 tablet 11/11/18 12/01/18 Unknown Rx 5/325 mg] Active Meds: Active Medications Acetaminophen (Tylenol) 650 mg PO Q4H PRN PRN Reason: Pain MILD(1-3)/Fever >100.5/HOLLAND Allopurinol (Zyloprim) 100 mg PO QDAY JANINE Apixaban (Eliquis) 5 mg PO Q12HR JANINE; Protocol Colchicine (Colchicine) 0.6 mg PO DAILY [facility] Last Admin: 12/01/18 10:01 Dose: 0.6 mg Documented by: Dextrose (D50w (25gm) Syringe) 50 ml IV PRN PRN PRN Reason: Hypoglycemia Famotidine (Pepcid) 20 mg PO BID [facility] Last Admin: 12/01/18 10:01 Dose: 20 mg Documented by: Amiodarone HCl 150 mg/ (Dextrose) 100 mls @ 600 mls/hr IV ONCE ONE Stop: 12/01/18 11:42 Amiodarone HCl 900 mg/ (Dextrose) 500 mls @ 33.333 mls/hr IV DIRECT JANINE; Protocol Insulin Human Lispro (Humalog) 0 unit SUB-Q ACHS JANINE; Protocol Last Admin: 12/01/18 09:01 Dose: Not Given Documented by: Ondansetron HCl (Zofran) 4 mg IV Q4H PRN PRN Reason: Nausea And Vomiting Oxycodone/Acetaminophen (Percocet 5/325) 1 tab PO Q6H PRN PRN Reason: Pain, Moderate (4-6) Last Admin: 12/01/18 10:01 Dose: 1 tab Documented by: Sodium Chloride (Sodium Chloride Flush Syringe 10 Ml) 10 ml IV BID JANINE Last Admin: 12/01/18 10:02 Dose: 10 ml Documented by: Sodium Chloride (Sodium Chloride Flush Syringe 10 Ml) 10 ml IV PRN PRN PRN Reason: LINE FLUSH Review of Systems Constitutional: no weight loss, no weight gain, no fever, no chills, no sweats Ears, nose, mouth and throat: no ear pain, no nose pain, no sinus pressure, no sinus pain Cardiovascular: palpitations, rapid/irregular heart beat, shortness of breath, no chest pain, no orthopnea, no edema, no syncope, no lightheadedness, no dyspnea on exertion, no high blood pressure, no leg edema, no decreased exercise tolerance Respiratory: shortness of breath, no cough, no dyspnea on exertion, no congestion, no wheezing, no pain on inspiration Gastrointestinal: no abdominal pain, no nausea, no vomiting, no diarrhea, no constipation, no change in bowel habits Genitourinary Male: no dysuria, no hematuria, no flank pain, no discharge, no urinary frequency, no urinary hesitancy Musculoskeletal: no neck stiffness, no neck pain, no shooting arm pain, no arm numbness/tingling, no low back pain, no shooting leg pain Integumentary: no rash, no pruritis, no redness, no sores, no wounds Neurological: no head injury, no paralysis, no weakness, no parathesias, no numbness, no tingling, no seizures, no syncope, no tremors Psychiatric: no anxiety Endocrine: no cold intolerance, no heat intolerance Hematologic/Lymphatic: no easy bruising, no easy bleeding Allergic/Immunologic: no urticaria, no wheezing Physical Examination Vital Signs Temp Pulse Resp BP Pulse Ox 97.4 F L 57 L 22 119/66 100 11/30/18 15:29 11/30/18 15:29 11/30/18 15:29 11/30/18 15:29 11/30/18 15:29 General appearance: no acute distress HEENT: Positive: PERRL, Normocephaly, Mucus Membranes Moist Neck: Positive: neck supple, trachea midline Cardiac: Positive: irregularly irregular, S1/S2, Tachycardia Lungs: Positive: Decreased Breath Sounds Neuro: Positive: Grossly Intact Abdomen: Positive: Soft. Negative: Tender Skin: Negative: Rash, Wound Musculoskeletal: No Pain Extremities: Absent: edema Results 12/01/18 04:52 12/01/18 04:52 Cardiac Enzymes 11/30/18 Range/Units 16:20 AST 37 (5-40) units/L Coagulation 11/30/18 Range/Units 16:20 PT 18.1 H (12.2-14.9) Sec. INR 1.40 H (0.87-1.13) APTT 31.3 (24.2-36.6) Sec. CBC 11/30/18 12/01/18 Range/Units 16:20 04:52 WBC 10.8 9.6 (4.5-11.0) K/mm3 RBC 5.28 H 4.87 (3.65-5.03) M/mm3 Hgb 13.5 12.7 (11.8-15.2) gm/dl Hct 42.7 39.4 (35.5-45.6) % Plt Count 277 244 (140-440) K/mm3 Lymph # 2.8 2.8 (1.2-5.4) K/mm3 [place] # 0.7 0.9 H (0.0-0.8) K/mm3 Eos # 0.1 0.1 (0.0-0.4) K/mm3 Baso # 0.1 0.1 (0.0-0.1) K/mm3 Comprehensive Metabolic Panel 11/30/18 12/01/18 Range/Units 16:20 04:52 Sodium 136 L 140 (137-145) mmol/L Potassium 4.5 4.7 (3.6-5.0) mmol/L Chloride 104.6 108.6 H (98-107) mmol/L Carbon Dioxide 15 L 19 L (22-30) mmol/L BUN 25 H 24 H (9-20) mg/dL Creatinine 1.1 1.1 (0.8-1.5) mg/dL Glucose 264 H 145 H (75-100) mg/dL Calcium 9.6 9.1 (8.4-10.2) mg/dL AST 37 (5-40) units/L ALT 48 (7-56) units/L Alkaline Phosphatase 86 (35-129) units/L Total Protein 7.4 (6.3-8.2) g/dL Albumin 3.9 (3.9-5) g/dL - Imaging and Cardiology Echo: report reviewed (11/03/2018 at [facility] showed EF 15-20%, LV severely dilated, LA mod to severely dilated, RV mod dilated, RV systolic function mod reduced, RA severely dilated, mild to mod MR, RVSP 48mmHg.) Cardiac cath: report reviewed ([facility] 04/2018: normal coronaries, EF 15%) EKG interpretations - Telemetry EKG Rhythm: Atrial Flutter - EKG Supraventricular dysrhythmia: atrial flutter Assessment and Plan Will attempt to optimize HR chemically - Initiate IV amio, resume lopressor and titrate as tolerated. Resume home PO lasix. Plan to resume home lisinopril when BPs permit. Cont Eliquis. Consider referral to [facility] for potential ablation. The patient has been seen in conjunction with Dr. Keyshawn Wade who agrees with the assessment and plan of care. - Patient Problems (1) Atrial flutter with rapid ventricular response Current Visit: Yes Status: Acute (2) Nonischemic dilated cardiomyopathy Current Visit: Yes Status: Chronic (3) Normal coronary arteries Current Visit: Yes Status: Chronic (4) Diabetes Current Visit: Yes Status: Chronic (5) Obesity Current Visit: Yes Status: Chronic
[2018-12-01] MEDS: CORDARONE 900 MG in D5W 482 ML IV SCH (12:43)
[2018-12-01] MEDS: ZYLOPRIM PO SCH (13:36)
[2018-12-01] MEDS: ELIQUIS PO SCH ×2 (13:36→22:36)
[2018-12-01] MEDS: LOPRESSOR PO SCH (22:37)
[2018-12-01] MEDS ORDERED: LANOXIN IV ONE (23:57)
[2018-12-02] MEDS: ZOFRAN IV PRN (05:01)
[2018-12-02] MEDS: HumaLOG SUB-Q SCH ×4 (08:45→21:52)
[2018-12-02] MEDS: ELIQUIS PO SCH ×2 (10:15→21:51)
[2018-12-02] MEDS: ZYLOPRIM PO SCH (10:15)
[2018-12-02] MEDS: COLCHICINE PO SCH (10:15)
[2018-12-02] MEDS: LOPRESSOR PO SCH ×3 (10:15→20:03)
[2018-12-02] MEDS: PEPCID PO SCH ×2 (10:15→21:53)
[2018-12-02] MEDS: LASIX PO SCH (10:15)
[2018-12-02] MEDS: SODIUM CHLORIDE FLUSH SYRINGE 10 ML IV SCH ×2 (10:16→21:53)
[2018-12-02 10:19] LABS: BUN/Creatinine Ratio 20; Blood Urea Nitrogen 22 mg/dL (9-20); Calcium 9.3 mg/dL (8.4-10.2); Hemolysis Index 3
[2018-12-02] MEDS ORDERED: CORDARONE PO ONE ×2 (11:00→22:00)
--- NOTE | 2018-12-02 11:05 | Progress Note ---
Assessment and Plan Recommend reestablishment of IV access and continuation of IV amio. Increase lopressor to TID dosing. Plan to resume home lisinopril when BPs permit. Cont Brady. The patient has been seen in conjunction with Dr. Keyshawn Wade who agrees with the assessment and plan of care. - Patient Problems (1) Atrial flutter with rapid ventricular response Current Visit: Yes Status: Acute (2) Nonischemic dilated cardiomyopathy Current Visit: Yes Status: Chronic (3) Normal coronary arteries Current Visit: Yes Status: Chronic (4) Diabetes Current Visit: Yes Status: Chronic (5) Obesity Current Visit: Yes Status: Chronic Subjective Date of service: 12/02/18 Principal diagnosis: AFlutter; HF Interval history: pt laying flat comfortably in bed, no current complaints. Remains in AFlutter with HR 120s. his peripheral IV became nonfunctional this morning and nursing staff has been unable to establish another IV and thus amio infusion has been paused. Objective Last Vital Signs Temp 97.9 F 12/02/18 08:00 Pulse 119 H 12/02/18 10:15 Resp 12 12/02/18 09:01 BP 114/71 12/02/18 10:15 Pulse Ox 79 L 12/02/18 09:01 - Physical Examination General: No Apparent Distress HEENT: Positive: PERRL, Normocephaly, Mucus Membranes Moist Neck: Positive: neck supple, trachea midline Cardiac: Positive: irregularly irregular, S1/S2, Tachycardia Lungs: Positive: Decreased Breath Sounds Neuro: Positive: Grossly Intact Abdomen: Positive: Soft. Negative: Tender Skin: Negative: Rash, Wound Musculoskeletal: No Pain Extremities: Absent: edema - Labs and Meds Comprehensive Metabolic Panel 12/02/18 Range/Units 09:40 Sodium 138 (137-145) mmol/L Potassium 4.5 (3.6-5.0) mmol/L Chloride 104.3 (98-107) mmol/L Carbon Dioxide 19 L (22-30) mmol/L BUN 22 H (9-20) mg/dL Creatinine 1.1 (0.8-1.5) mg/dL Glucose 188 H (75-100) mg/dL Calcium 9.3 (8.4-10.2) mg/dL - Imaging and Cardiology EKG: image reviewed Echo: report reviewed (11/03/2018 at [facility] showed EF 15-20%, LV severely dilated, LA mod to severely dilated, RV mod dilated, RV systolic function mod reduced, RA severely dilated, mild to mod MR, RVSP 48mmHg.) Cardiac cath: report reviewed ([facility] 04/2018: normal coronaries, EF 15%)
[2018-12-02] MEDS: PERCOCET 5/325 PO PRN (11:36)
--- NOTE | 2018-12-02 15:42 | Progress Note ---
Assessment and Plan A. fib with RVR - s/p ablation on 10/2018 - continue amioderone drip for 48h then switched to po, cardiology following - cont eliquis, BB TID Chest pain, monitor trop, follow cardiology eval Hypertension, resumed home meds Diabetes type 2. SSI as needed CHF, stable - Ef 15- 20% on echo 10/2018, cardiology following Gout - On colchine Dvt Px, on eliquis Brief History; The pt is a 57-year-old male with a past medical history of dilated NICMP, atrial flutter s/p JUSTINE guided DCCV with successful conversion to NSR on 11/10/2018, on Eliquis, HFrEF, DM, obesity, presented this time with palpitation and chest pain. He noted to be on atrial fibrillation, placed on cerdizem drip and admitted for further evaluation and management. Subjective Date of service: 12/02/18 Principal diagnosis: AFlutter; HF Interval history: Patient seen and examined denies chest pain, breathing improved Objective - Constitutional Vitals: Vital Signs - 12hr 12/02/18 12/02/18 12/02/18 04:00 04:01 04:31 Temperature 98.1 F Pulse Rate 118 H 118 H Respiratory 17 28 H Rate Blood Pressure 138/67 138/67 O2 Sat by Pulse 100 93 97 Oximetry 12/02/18 12/02/18 12/02/18 05:00 05:31 06:01 Temperature Pulse Rate 119 H 116 H 120 H Respiratory 29 H 26 H 28 H Rate Blood Pressure 150/90 138/67 131/98 O2 Sat by Pulse 92 97 92 Oximetry 12/02/18 12/02/18 12/02/18 07:01 08:00 08:01 Temperature 97.9 F Pulse Rate 118 H 118 H Respiratory 16 16 Rate Blood Pressure 131/98 124/63 O2 Sat by Pulse 96 97 91 Oximetry 12/02/18 12/02/18 12/02/18 09:01 10:00 10:15 Temperature Pulse Rate 117 H 118 H 119 H Respiratory 12 19 Rate Blood Pressure 101/68 114/71 114/71 O2 Sat by Pulse 79 L 98 Oximetry 12/02/18 12/02/18 12/02/18 11:01 11:56 12:00 Temperature 98.0 F Pulse Rate 120 H Respiratory 15 Rate Blood Pressure 117/94 O2 Sat by Pulse 100 96 Oximetry 12/02/18 12/02/18 12/02/18 12:01 13:01 13:42 Temperature Pulse Rate 128 H 117 H 115 H Respiratory 29 H 22 Rate Blood Pressure 117/94 117/94 109/86 O2 Sat by Pulse 82 L 98 Oximetry 12/02/18 12/02/18 14:01 15:01 Temperature Pulse Rate 115 H 115 H Respiratory 27 H 10 L Rate Blood Pressure 109/86 109/86 O2 Sat by Pulse 93 99 Oximetry General appearance: Present: no acute distress, well-nourished - EENT Eyes: PERRL, EOM intact ENT: hearing intact, clear oral mucosa Ears: bilateral: normal - Neck Neck: supple, normal ROM - Respiratory Respiratory effort: normal Respiratory: bilateral: CTA - Cardiovascular Rhythm: regular Heart Sounds: Present: S1 & S2. Absent: gallop, rub Extremities: pulses intact, No edema, normal color, Full ROM - Gastrointestinal General gastrointestinal: Present: soft, non-tender, non-distended, normal bowel sounds - Integumentary Integumentary: clear, warm, dry - Musculoskeletal Musculoskeletal: 1, strength equal bilaterally - Neurologic Neurologic: moves all extremities - Psychiatric Psychiatric: memory intact, appropriate mood/affect, intact judgment & insight - Labs CBC & Chem 7: 12/01/18 04:52 12/02/18 09:40 Labs: Abnormal lab results 12/01/18 12/01/18 12/02/18 Range/Units 17:00 21:14 08:04 Carbon Dioxide (22-30) mmol/L BUN (9-20) mg/dL Glucose (75-100) mg/dL POC Glucose 211 H 198 H 176 H (70-105) 12/02/18 12/02/18 Range/Units 09:40 11:34 Carbon Dioxide 19 L (22-30) mmol/L BUN 22 H (9-20) mg/dL Glucose 188 H (75-100) mg/dL POC Glucose 203 H (70-105)
[2018-12-03] MEDS: HumaLOG SUB-Q SCH ×3 (08:00→18:18)
[2018-12-03] MEDS: ELIQUIS PO SCH ×2 (09:30→21:15)
[2018-12-03] MEDS: ZYLOPRIM PO SCH (09:30)
[2018-12-03] MEDS: COLCHICINE PO SCH (09:30)
[2018-12-03] MEDS: PEPCID PO SCH ×2 (09:31→21:16)
[2018-12-03] MEDS: LOPRESSOR PO SCH ×3 (09:31→21:15)
[2018-12-03] MEDS: SODIUM CHLORIDE FLUSH SYRINGE 10 ML IV SCH ×2 (09:32→21:16)
[2018-12-03] MEDS ORDERED: CORDARONE PO SCH (10:00)
[2018-12-03] MEDS: LASIX PO SCH (11:18)
[2018-12-03] MEDS: CORDARONE 900 MG in D5W 482 ML IV SCH (11:19)
--- NOTE | 2018-12-03 12:11 | Progress Note ---
Assessment and Plan Pt remains in AFlutter with RVR, HR 120s. His amio infusion was held overnight for unclear reasons. Cont IV amio. Cont lopressor TID. Plan to resume home lisinopril when BPs permit. Cont Eliquis. Consider DCCV if unable to optimize HR chemically. The patient has been seen in conjunction with Dr. Keyshawn Wade who agrees with the assessment and plan of care. - Patient Problems (1) Atrial flutter with rapid ventricular response Current Visit: Yes Status: Acute (2) Nonischemic dilated cardiomyopathy Current Visit: Yes Status: Chronic (3) Normal coronary arteries Current Visit: Yes Status: Chronic (4) Diabetes Current Visit: Yes Status: Chronic (5) Obesity Current Visit: Yes Status: Chronic Subjective Date of service: 12/03/18 Principal diagnosis: AFlutter; HF Interval history: pt laying flat comfortably in bed, no current complaints. Remains in AFlutter with HR 120s. his amio infusion was held overnight for unclear reasons. Objective Last Vital Signs Temp 97.6 F 12/03/18 08:00 Pulse 118 H 12/03/18 09:01 Resp 19 12/03/18 09:01 BP 100/66 12/03/18 09:01 Pulse Ox 100 12/03/18 09:00 - Physical Examination General: No Apparent Distress HEENT: Positive: PERRL, Normocephaly, Mucus Membranes Moist Neck: Positive: neck supple, trachea midline Cardiac: Positive: irregularly irregular, S1/S2, Tachycardia Lungs: Positive: Decreased Breath Sounds Neuro: Positive: Grossly Intact Abdomen: Positive: Soft. Negative: Tender Skin: Negative: Rash, Wound Musculoskeletal: No Pain Extremities: Absent: edema - Imaging and Cardiology EKG: image reviewed Echo: report reviewed (11/[facility] showed EF 15-20%, LV severely dilated, LA mod to severely dilated, RV mod dilated, RV systolic function mod reduced, RA severely dilated, mild to mod MR, RVSP 48mmHg.) Cardiac cath: report reviewed ([place] 04/2018: normal coronaries, EF 15%)
--- NOTE | 2018-12-03 12:25 | Progress Note ---
Assessment and Plan Assessment and plan: --A. fib with RVR s/p ablation on 10/2018 continue amioderone drip , cardiology following cont eliquis, supportive care, beta blockers --Atypical Chest pain; probably secondary to acute on chronic CHF monitor trop, follow cardiology eval --Hypertension, resumed home meds --Diabetes type 2. SSI as needed --Acute on chronic systolic CHF, continue anti-failure medications Ef 15- 20% on echo 10/2018, cardiology following --Gout; Stable on colchine --Dvt prophylaxis: on eliquis Brief History; The pt is a 57-year-old male with a past medical history of dilated NICMP, at [facility] flutter s/p JUSTINE guided DCCV with successful conversion to NSR on 11/10/2018, on Eliquis, HFrEF, DM, obesity, presented this time with palpitation and chest pain. He noted to be on atrial fibrillation, placed on cerdizem drip and admitted for further evaluation and management. History Interval history: Patient seen and examined medical records reviewed Patient with persistent A. fib with rapid ventricular rate On amiodarone, Cardiology following Patient has no new complaints denies chest pain or shortness of breath Vital signs noted Hospitalist Physical - Constitutional Vitals: Temp Pulse Resp BP Pulse Ox 97.6 F 118 H 19 100/66 100 12/03/18 08:00 12/03/18 09:01 12/03/18 09:01 12/03/18 09:01 12/03/18 09:00 General appearance: Present: no acute distress, well-nourished - EENT Eyes: Present: PERRL, EOM intact - Neck Neck: Present: supple, normal ROM - Respiratory Respiratory effort: normal Respiratory: bilateral: diminished, negative: rales, rhonchi, wheezing - Cardiovascular Rhythm: irregularly irregular Heart Sounds: Present: S1 & S2 (tachycardia) - Extremities Extremities: no ischemia, No edema - Abdominal General gastrointestinal: soft, non-tender, non-distended, normal bowel sounds - Integumentary Integumentary: Present: clear, warm - Psychiatric Psychiatric: appropriate mood/affect, cooperative - Neurologic Neurologic: CNII-XII intact, moves all extremities Results - Labs CBC & Chem 7: 12/01/18 04:52 12/04/18 05:26 Labs: Laboratory Last Values WBC 9.6 K/mm3 (4.5-11.0) 12/01/18 04:52 RBC 4.87 M/mm3 (3.65-5.03) 12/01/18 04:52 Hgb 12.7 gm/dl (11.8-15.2) 12/01/18 04:52 Hct 39.4 % (35.5-45.6) 12/01/18 04:52 MCV 81 fl (84-94) L 12/01/18 04:52 MCH 26 pg (28-32) L 12/01/18 04:52 MCHC 32 % (32-34) 12/01/18 04:52 RDW 17.6 % (13.2-15.2) H 12/01/18 04:52 Plt Count 244 K/mm3 (140-440) 12/01/18 04:52 Lymph % (Auto) 29.6 % (13.4-35.0) 12/01/18 04:52 [place] % (Auto) 9.5 % (0.0-7.3) H 12/01/18 04:52 Eos % (Auto) 1.4 % (0.0-4.3) 12/01/18 04:52 Baso % (Auto) 1.0 % (0.0-1.8) 12/01/18 04:52 Lymph # 2.8 K/mm3 (1.2-5.4) 12/01/18 04:52 [place] # 0.9 K/mm3 (0.0-0.8) H 12/01/18 04:52 Eos # 0.1 K/mm3 (0.0-0.4) 12/01/18 04:52 Baso # 0.1 K/mm3 (0.0-0.1) 12/01/18 04:52 Seg Neutrophils % 58.5 % (40.0-70.0) 12/01/18 04:52 Seg Neutrophils # 5.6 K/mm3 (1.8-7.7) 12/01/18 04:52 PT 18.1 Sec. (12.2-14.9) H 11/30/18 16:20 INR 1.40 (0.87-1.13) H 11/30/18 16:20 APTT 31.3 Sec. (24.2-36.6) 11/30/18 16:20 Sodium 138 mmol/L (137-145) 12/02/18 09:40 Potassium 4.5 mmol/L (3.6-5.0) 12/02/18 09:40 Chloride 104.3 mmol/L (98-107) 12/02/18 09:40 Carbon Dioxide 19 mmol/L (22-30) L 12/02/18 09:40 19 mmol/L 12/02/18 09:40 BUN 22 mg/dL (9-20) H 12/02/18 09:40 1.1 mg/dL (0.8-1.5) 12/02/18 09:40 Estimated GFR > 60 ml/min 12/02/18 09:40 20 % 12/02/18 09:40 Glucose 188 mg/dL (75-100) H 12/02/18 09:40 POC Glucose 163 (70-105) H 12/03/18 11:54 Calcium 9.3 mg/dL (8.4-10.2) 12/02/18 09:40 Magnesium 1.80 mg/dL (1.7-2.3) 12/01/18 16:33 0.50 mg/dL (0.1-1.2) 11/30/18 16:20 AST 37 units/L (5-40) 11/30/18 16:20 ALT 48 units/L (7-56) 11/30/18 16:20 86 units/L (35-129) 11/30/18 16:20 < 0.010 ng/mL (0.00-0.029) 11/30/18 20:44 NT-Pro-B Natriuret Pep 4277 pg/mL (0-900) H 11/30/18 16:20 7.4 g/dL (6.3-8.2) 11/30/18 16:20 3.9 g/dL (3.9-5) 11/30/18 16:20 1.1 % 11/30/18 16:20 Yellow (Yellow) 11/30/18 Unknown Slightly-cloudy (Clear) 11/30/18 Unknown 5.0 (5.0-7.0) 11/30/18 Unknown Ur Specific [place] 1.012 (1.003-1.030) 11/30/18 Unknown <15 mg/dl mg/dL (Negative) 11/30/18 Unknown Neg mg/dL (Negative) 11/30/18 Unknown Neg mg/dL (Negative) 11/30/18 Unknown Neg (Negative) 11/30/18 Unknown Neg (Negative) 11/30/18 Unknown Neg (Negative) 11/30/18 Unknown < 2.0 mg/dL (<2.0) 11/30/18 Unknown Ur Leukocyte Esterase Sm (Negative) 11/30/18 Unknown 14.0 /HPF (0.0-6.0) H 11/30/18 Unknown 1.0 /HPF (0.0-6.0) 11/30/18 Unknown Few /HPF 11/30/18 Unknown Active Medications - Current Medications Current Medications: Generic Name Dose Route Start Last Admin Trade Name Freq PRN Reason Stop Dose Admin Acetaminophen 650 mg 12/01/18 00:37 Tylenol PO Q4H PRN Pain MILD(1-3)/Fever >100.5/HOLLAND Allopurinol 100 mg 12/01/18 10:00 12/03/18 09:30 Zyloprim PO 100 mg QDAY JANINE Administration Apixaban 5 mg 12/01/18 10:00 12/03/18 09:30 Eliquis PO 5 mg Q12HR JANINE Administration Protocol Colchicine 0.6 mg 12/01/18 10:00 12/03/18 09:30 Colchicine PO 0.6 mg DAILY JANINE Administration Dextrose 50 ml 12/01/18 00:37 D50w (25gm) Syringe IV PRN PRN Hypoglycemia Famotidine 20 mg 12/01/18 10:00 12/03/18 09:31 Pepcid PO 20 mg BID JANINE Administration Furosemide 40 mg 12/02/18 10:00 12/03/18 11:18 Lasix PO 40 mg QDAY JANINE Administration Amiodarone HCl 900 mg/ 500 mls @ 33.333 mls/hr 12/01/18 12:00 12/03/18 11:19 Dextrose IV 1 mg/min DIRECT JANINE 33.333 mls/hr Administration Protocol 1 MG/MIN Insulin Human Lispro 0 unit 12/01/18 07:30 12/03/18 08:00 Humalog SUB-Q 3 unit ACHS JANINE Administration Protocol Metoprolol Tartrate 25 mg 12/02/18 14:00 12/03/18 09:31 Lopressor PO 25 mg TID JANINE Administration Ondansetron HCl 4 mg 12/01/18 00:37 12/02/18 05:01 Zofran IV 4 mg Q4H PRN Administration Nausea And Vomiting Oxycodone/Acetaminophen 1 tab 12/01/18 00:37 12/02/18 11:36 Percocet 5/325 PO 1 tab Q6H PRN Administration Pain, Moderate (4-6) Sodium Chloride 10 ml 12/01/18 10:00 12/03/18 09:32 Sodium Chloride Flush Syringe 10 Ml IV 10 ml BID JANINE Administration Sodium Chloride 10 ml 12/01/18 00:37 Sodium Chloride Flush Syringe 10 Ml IV PRN PRN LINE FLUSH
[2018-12-03] MEDS: PERCOCET 5/325 PO PRN (21:16)
[2018-12-03] MEDS: ZOFRAN IV PRN (21:33)
[2018-12-04 06:08] LABS: Albumin 4.2 g/dL (3.9-5); Calcium 9.8 mg/dL (8.4-10.2)
[2018-12-04] MEDS: ZOFRAN IV PRN (06:49)
[2018-12-04] MEDS: HumaLOG SUB-Q SCH ×5 (08:00→22:26)
[2018-12-04] MEDS: PEPCID PO SCH ×2 (09:50→22:21)
[2018-12-04] MEDS: LASIX PO SCH (09:50)
[2018-12-04] MEDS: LOPRESSOR PO SCH ×3 (09:50→22:21)
[2018-12-04] MEDS: ELIQUIS PO SCH (09:51)
[2018-12-04] MEDS: COLCHICINE PO SCH (09:51)
[2018-12-04] MEDS: ZYLOPRIM PO SCH (09:51)
[2018-12-04] MEDS: SODIUM CHLORIDE FLUSH SYRINGE 10 ML IV SCH ×2 (09:52→22:21)
--- NOTE | 2018-12-04 12:07 | Progress Note ---
Assessment and Plan 57yo AAM: 1. Afib w/ VVR * s/p reddy/cv 2 weeks ago - now recurred * on eliquis/bb/amio 2. Severe NICM * h/o HFrEF 3. RIGOBERTO 4. Severe transaminitis 5. Diabetes 6. Obesity D/c amio and eliquis given sig hepatic impairment No evidence of prolonged hypertension -- consult GI Start IV heparin in am if LFTs improved (also metabolized by liver) Gentle IVF - pt is euvolemic, possibly slightly dry Discussed with Dr. Argueta Subjective Date of service: 12/04/18 Principal diagnosis: AFlutter; HF Interval history: feeling fine no complaints Objective Vital Signs Temp Pulse Pulse Pulse Resp BP Pulse Ox 12/04/18 11:00 102 H 19 134/107 97 12/04/18 10:00 112 H 27 H 134/107 94 12/04/18 09:50 113 H 134/107 12/04/18 09:00 115 H 15 134/107 96 12/04/18 08:00 97.5 F L 103 H 108 H 22 131/103 95 12/04/18 07:00 114 H 22 131/103 12/04/18 06:00 108 H 29 H 117/86 12/04/18 05:00 111 H 15 117/86 12/04/18 04:00 98.8 F 110 H 116 H 19 117/86 93 12/04/18 03:00 108 H 18 117/86 12/04/18 02:00 108 H 20 117/86 12/04/18 01:00 110 H 20 124/97 12/04/18 00:00 98 F 110 H 111 H 18 124/97 94 12/03/18 23:09 98.4 F 12/03/18 23:00 120 H 30 H 124/97 12/03/18 22:36 114 H 16 124/97 12/03/18 22:00 113 H 23 124/97 12/03/18 21:16 13 12/03/18 21:15 115 H 133/101 12/03/18 21:00 115 H 20 123/97 98 12/03/18 20:00 98.2 F 115 H 108 H 28 H 123/97 97 12/03/18 19:00 115 H 24 145/110 96 12/03/18 18:00 114 H 34 H 145/110 97 12/03/18 17:00 114 H 23 145/110 12/03/18 16:00 97.2 F L 116 H 117 H 30 H 145/110 90 12/03/18 15:00 116 H 27 H 145/110 98 12/03/18 14:00 111 H 18 111/76 85 12/03/18 13:00 119 H 28 H - Physical Examination General: No Apparent Distress HEENT: Positive: PERRL, Normocephaly, Mucus Membranes Moist Neck: Positive: neck supple, trachea midline Neuro: Positive: Grossly Intact Abdomen: Positive: Soft. Negative: Tender Skin: Negative: Rash, Wound Musculoskeletal: No Pain Extremities: Absent: edema - Labs and Meds Cardiac Enzymes 12/04/18 Range/Units 05:26 AST 2806 H (5-40) units/L Comprehensive Metabolic Panel 12/04/18 Range/Units 05:26 Sodium 135 L (137-145) mmol/L Potassium 5.2 H (3.6-5.0) mmol/L Chloride 96.8 L (98-107) mmol/L Carbon Dioxide 18 L (22-30) mmol/L BUN 25 H (9-20) mg/dL Creatinine 2.1 H D (0.8-1.5) mg/dL Glucose 171 H (75-100) mg/dL Calcium 9.8 (8.4-10.2) mg/dL AST 2806 H (5-40) units/L ALT 2221 H (7-56) units/L Alkaline Phosphatase 113 (35-129) units/L Total Protein 8.2 (6.3-8.2) g/dL Albumin 4.2 (3.9-5) g/dL - Imaging and Cardiology EKG: image reviewed Echo: report reviewed (11/03/2018 at [facility] showed EF 15-20%, LV severely dilated, LA mod to severely dilated, RV mod dilated, RV systolic function mod reduced, RA severely dilated, mild to mod MR, RVSP 48mmHg.) Cardiac cath: report reviewed ([facility] 04/2018: normal coronaries, EF 15%)
--- NOTE | 2018-12-04 12:09 | Progress Note ---
Assessment and Plan Assessment and plan: --A. fib with RVR: JUSTINE guided DC cardioversion on 11/10/2018 received amioderone drip,discomtinued today due to Transaminitis cont dai, BB TID --Transaminitis; shock liver, drug induced[amiodarone] Patient did not have any episodes of hypotension or shock Repeat liver function tests, GI consultation if needed Check acute hepatitis panel --Dyspepsia; Maalox as needed Check abdominal ultrasound --Acute kidney injury secondary to ATN; Hold diuretics, gentle hydration, avoid nephrotoxins --Atypical chest pain; resolved --Hypertension, stable on current management --Diabetes type 2. Accu-Cheks sliding scale coverage and ADA diet Insulin as needed --Acute on chronic systolic congestive heart failure Ef 15- 20% on echo 10/2018, hold Lasix in view of a RIGOBERTO Gentle hydration cardiology following --Nonischemic cardiomyopathy --Gout; stable on colchine --Dvt prophylaxis; on Eliquis Monitor closely and adjust management as needed Follow repeat LFTs, abdominal ultrasound, GI evaluation and recommendation Plan of care reviewed with the patient family member at the bedside and his nurse Critical care time 31 minutes History Interval history: Patient seen and examined medical records reviewed Patient complains of some abdominal discomfort, nausea and dyspepsia Morning labs consistent with acute transaminitis, with LFTs in thousands Possible shock liver[patient did not have any episodes of hypotension] versus Drug-induced with amiodarone Denies chest pain or shortness of breath Heart rate ranges between 102-110s Vital signs reviewed Hospitalist Physical - Constitutional Vitals: Temp Pulse Resp BP Pulse Ox 97.5 F L 102 H 19 134/107 97 12/04/18 08:00 12/04/18 11:00 12/04/18 11:00 12/04/18 11:00 12/04/18 11:00 General appearance: Present: no acute distress, well-nourished, obese (morbidly obese) - EENT Eyes: Present: PERRL, EOM intact - Neck Neck: Present: supple, normal ROM - Respiratory Respiratory effort: normal Respiratory: bilateral: diminished, negative: rales, rhonchi, wheezing - Cardiovascular Rhythm: regular Heart Sounds: Present: S1 & S2 - Extremities Extremities: no ischemia, No edema - Abdominal General gastrointestinal: soft, non-tender, non-distended, normal bowel sounds - Integumentary Integumentary: Present: clear, warm - Psychiatric Psychiatric: appropriate mood/affect, cooperative - Neurologic Neurologic: CNII-XII intact, moves all extremities Results - Labs CBC & Chem 7: 12/01/18 04:52 12/04/18 05:26 Labs: Laboratory Last Values WBC 9.6 K/mm3 (4.5-11.0) 12/01/18 04:52 RBC 4.87 M/mm3 (3.65-5.03) 12/01/18 04:52 Hgb 12.7 gm/dl (11.8-15.2) 12/01/18 04:52 Hct 39.4 % (35.5-45.6) 12/01/18 04:52 MCV 81 fl (84-94) L 12/01/18 04:52 MCH 26 pg (28-32) L 12/01/18 04:52 MCHC 32 % (32-34) 12/01/18 04:52 RDW 17.6 % (13.2-15.2) H 12/01/18 04:52 Plt Count 244 K/mm3 (140-440) 12/01/18 04:52 Lymph % (Auto) 29.6 % (13.4-35.0) 12/01/18 04:52 [place] % (Auto) 9.5 % (0.0-7.3) H 12/01/18 04:52 Eos % (Auto) 1.4 % (0.0-4.3) 12/01/18 04:52 Baso % (Auto) 1.0 % (0.0-1.8) 12/01/18 04:52 Lymph # 2.8 K/mm3 (1.2-5.4) 12/01/18 04:52 [place] # 0.9 K/mm3 (0.0-0.8) H 12/01/18 04:52 Eos # 0.1 K/mm3 (0.0-0.4) 12/01/18 04:52 Baso # 0.1 K/mm3 (0.0-0.1) 12/01/18 04:52 Seg Neutrophils % 58.5 % (40.0-70.0) 12/01/18 04:52 Seg Neutrophils # 5.6 K/mm3 (1.8-7.7) 12/01/18 04:52 PT 18.1 Sec. (12.2-14.9) H 11/30/18 16:20 INR 1.40 (0.87-1.13) H 11/30/18 16:20 APTT 31.3 Sec. (24.2-36.6) 11/30/18 16:20 Sodium 135 mmol/L (137-145) L 12/04/18 05:26 Potassium 5.2 mmol/L (3.6-5.0) H 12/04/18 05:26 Chloride 96.8 mmol/L (98-107) L 12/04/18 05:26 Carbon Dioxide 18 mmol/L (22-30) L 12/04/18 05:26 25 mmol/L 12/04/18 05:26 BUN 25 mg/dL (9-20) H 12/04/18 05:26 2.1 mg/dL (0.8-1.5) H D 12/04/18 05:26 Estimated GFR 40 ml/min 12/04/18 05:26 12 % 12/04/18 05:26 Glucose 171 mg/dL (75-100) H 12/04/18 05:26 POC Glucose 148 (70-105) H 12/04/18 08:40 Calcium 9.8 mg/dL (8.4-10.2) 12/04/18 05:26 Magnesium 1.80 mg/dL (1.7-2.3) 12/01/18 16:33 1.50 mg/dL (0.1-1.2) H 12/04/18 05:26 AST 2806 units/L (5-40) H 12/04/18 05:26 ALT 2221 units/L (7-56) H 12/04/18 05:26 113 units/L (35-129) 12/04/18 05:26 < 0.010 ng/mL (0.00-0.029) 11/30/18 20:44 NT-Pro-B Natriuret Pep 4277 pg/mL (0-900) H 11/30/18 16:20 8.2 g/dL (6.3-8.2) 12/04/18 05:26 4.2 g/dL (3.9-5) 12/04/18 05:26 1.1 % 12/04/18 05:26 Yellow (Yellow) 11/30/18 Unknown Slightly-cloudy (Clear) 11/30/18 Unknown 5.0 (5.0-7.0) 11/30/18 Unknown Ur Specific [place] 1.012 (1.003-1.030) 11/30/18 Unknown <15 mg/dl mg/dL (Negative) 11/30/18 Unknown Neg mg/dL (Negative) 11/30/18 Unknown Neg mg/dL (Negative) 11/30/18 Unknown Neg (Negative) 11/30/18 Unknown Neg (Negative) 11/30/18 Unknown Neg (Negative) 11/30/18 Unknown < 2.0 mg/dL (<2.0) 11/30/18 Unknown Ur Leukocyte Esterase Sm (Negative) 11/30/18 Unknown 14.0 /HPF (0.0-6.0) H 11/30/18 Unknown 1.0 /HPF (0.0-6.0) 11/30/18 Unknown Few /HPF 11/30/18 Unknown Active Medications - Current Medications Current Medications: Generic Name Dose Route Start Last Admin Trade Name Freq PRN Reason Stop Dose Admin Acetaminophen 650 mg 12/01/18 00:37 Tylenol PO Q4H PRN Pain MILD(1-3)/Fever >100.5/HO[place] Allopurinol 100 mg 12/01/18 10:00 12/04/18 09:51 Zyloprim PO Not Given QDAY JANINE Apixaban 5 mg 12/01/18 10:00 12/04/18 09:51 Eliquis PO 5 mg Q12HR JANINE Administration Protocol Colchicine 0.6 mg 12/01/18 10:00 12/04/18 09:51 Colchicine PO Not Given DAILY JANINE Dextrose 50 ml 12/01/18 00:37 D50w (25gm) Syringe IV PRN PRN Hypoglycemia Famotidine 20 mg 12/01/18 10:00 12/04/18 09:50 Pepcid PO 20 mg BID JANINE Administration Furosemide 40 mg 12/02/18 10:00 12/04/18 09:50 Lasix PO 40 mg QDAY JANINE Administration Amiodarone HCl 900 mg/ 500 mls @ 33.333 mls/hr 12/01/18 12:00 12/03/18 11:19 Dextrose IV 1 mg/min DIRECT JANINE 33.333 mls/hr Administration Protocol 1 MG/MIN Insulin Human Lispro 0 unit 12/01/18 07:30 12/04/18 08:02 Humalog SUB-Q Not Given ACHS [facility] Protocol Metoprolol Tartrate 25 mg 12/02/18 14:00 12/04/18 09:50 Lopressor PO 25 mg TID JANINE Administration Ondansetron HCl 4 mg 12/01/18 00:37 12/04/18 06:49 Zofran IV 4 mg Q4H PRN Administration Nausea And Vomiting Oxycodone/Acetaminophen 1 tab 12/01/18 00:37 12/03/18 21:16 Percocet 5/325 PO 1 tab Q6H PRN Administration Pain, Moderate (4-6) Sodium Chloride 10 ml 12/01/18 10:00 12/04/18 09:52 Sodium Chloride Flush Syringe 10 Ml IV 10 ml BID JANINE Administration Sodium Chloride 10 ml 12/01/18 00:37 Sodium Chloride Flush Syringe 10 Ml IV PRN PRN LINE FLUSH
[2018-12-04] MEDS ORDERED: NACL 0.9% 1000 ML 1,000 ML IV SCH (13:00)
[2018-12-04] MEDS ORDERED: ALUM-MAG HYDROX-SIMETH 200-200-20MG/5ML PO PRN (13:08)
[2018-12-04] MEDS ORDERED: ALUM-MAG HYDROX-SIMETH 200-200-20MG/5ML PO ONE (13:08)
[2018-12-04] MEDS: NACL 0.9% 1000 ML 1,000 ML IV SCH (13:16)
[2018-12-04 15:52] LABS: Albumin 4.5 g/dL (3.9-5); Bilirubin,Direct 1.1 mg/dL (0-0.2)
[2018-12-04 17:05] LABS: Hepatitis B Surface Antigen Non-Reactive (Negative); Hepatitis C Virus Antibody Non-Reactive (NonReactive)
[2018-12-04 19:33] LABS: Albumin 4.1 g/dL (3.9-5); Calcium 9.5 mg/dL (8.4-10.2)
[2018-12-04] MEDS ORDERED: CALCIUM CHLORIDE 1,000 MG in NACL 0.9% 100 ML IV STA (22:28)
[2018-12-04] MEDS ORDERED: D50W (25GM) Syringe IV STA (22:28)
[2018-12-04] MEDS ORDERED: HumuLIN R SUB-Q STA (22:28)
[2018-12-04] MEDS ORDERED: KIONEX PO STA (22:28)
[2018-12-05 05:27] LABS: Basophils # (Auto) 0.1 K/mm3 (0.0-0.1); Basophils % (Auto) 0.6 % (0.0-1.8); Eosinophils % (Auto) 0.3 % (0.0-4.3); Hematocrit 40.4 % (35.5-45.6); Hemoglobin 12.9 gm/dl (11.8-15.2); Lymphocytes # (Auto) 1.5 K/mm3 (1.2-5.4); Lymphocytes % (Auto) 12.8 % (13.4-35.0); Mean Corpuscular HGB Conc 32 % (32-34); Mean Corpuscular Volume 81 fl (84-94); Monocytes # (Auto) 0.9 K/mm3 (0.0-0.8); Monocytes % (Auto) 7.5 % (0.0-7.3); Platelet Count 187 K/mm3 (140-440)
[2018-12-05 05:36] LABS: INR 3.55 (0.87-1.13)
[2018-12-05 05:51] LABS: Albumin 3.4 g/dL (3.9-5); Calcium 9.4 mg/dL (8.4-10.2)
--- NOTE | 2018-12-05 08:19 | Gastroenterology Consultation ---
History of Present Illness - Reason for Consult Consult date: 12/05/18 acute transaminitis Requesting physician: JULES WHITE - History of Present Illness Pleasant 57 yo male with acute elevation in the LFT's. In brief patient had Afib with RVR, started on amio drip but noted to have extremely high LFT's so GI consulted. Patient denies any history liver disease or jaundice. Of note there were no episodes of hypotension that were documented. Amio was stopped when the LFT's spiked yesterday. Patient reports currently no abd pain or major complaints Home meds updated, reconciled, and reviewed Past History Past Medical History: diabetes, heart failure Past Surgical History: No surgical history Social history: denies: smoking, alcohol abuse, prescription drug abuse Family history: other (no history liver disease) Medications and Allergies Allergies Allergy/AdvReac Type Severity Reaction Status Date / Time No Known Allergies Allergy Verified 11/30/18 15:13 Home Medications Medication Instructions Recorded Confirmed Last Taken Type Allopurinol [Zyloprim] 100 mg PO QDAY #30 tablet 02/25/14 12/01/18 Unknown Rx Colchicine 0.6 mg PO DAILY #14 capsule 09/29/17 12/01/18 Unknown Rx Apixaban [Eliquis] 5 mg PO Q12HR #60 tablet 11/11/18 12/01/18 Unknown Rx Famotidine [Pepcid] 20 mg PO BID #60 tablet 11/11/18 12/01/18 Unknown Rx Furosemide [Lasix TAB] 40 mg PO QDAY #30 tablet 11/11/18 12/01/18 Unknown Rx Lisinopril [Zestril TAB] 5 mg PO QDAY #30 tablet 11/11/18 12/01/18 Unknown Rx Metoprolol [Lopressor TAB] 50 mg PO TID #30 tablet 11/11/18 12/01/18 Unknown Rx methylPREDNISolone [Medrol Dose 4 mg PO DAILY 6 Days #1 pkg 11/11/18 12/01/18 U nknown Rx Andrea] oxyCODONE /ACETAMINOPHEN [Percocet 1 tab PO Q4-6H PRN #14 tablet 11/11/1803/14 Unknown Rx 5/325 mg] Active Meds: Active Medications Al Hydrox/Mg Hydrox/Simethicone (Alum-Mag Hydrox-Simeth [phone]/5ml) 30 ml PO Q4H PRN PRN Reason: Indigestion Allopurinol (Zyloprim) 100 mg PO QDAY [facility] Last Admin: 12/04/18 09:51 Dose: Not Given Documented by: Colchicine (Colchicine) 0.6 mg PO DAILY [facility] Last Admin: 12/04/18 09:51 Dose: Not Given Documented by: Dextrose (D50w (25gm) Syringe) 50 ml IV PRN PRN PRN Reason: Hypoglycemia Last Admin: 12/04/18 23:15 Dose: 50 ml Documented by: Famotidine (Pepcid) 20 mg PO BID [facility] Last Admin: 12/04/18 22:21 Dose: 20 mg Documented by: Sodium Chloride (Nacl 0.9% 1000 Ml) 1,000 mls @ 75 mls/hr IV DIRECT [facility] Last Admin: 12/05/18 00:00 Dose: 75 mls/hr Documented by: Insulin Human Lispro (Humalog) 0 unit SUB-Q ACHS [facility]; Protocol Last Admin: 12/04/18 22:26 Dose: 3 unit Documented by: Metoprolol Tartrate (Lopressor) 25 mg PO TID [facility] Last Admin: 12/04/18 22:21 Dose: 25 mg Documented by: Ondansetron HCl (Zofran) 4 mg IV Q4H PRN PRN Reason: Nausea And Vomiting Last Admin: 12/04/18 06:49 Dose: 4 mg Documented by: Sodium Chloride (Sodium Chloride Flush Syringe 10 Ml) 10 ml IV BID [facility] Last Admin: 12/04/18 22:21 Dose: 10 ml Documented by: Sodium Chloride (Sodium Chloride Flush Syringe 10 Ml) 10 ml IV PRN PRN PRN Reason: LINE FLUSH Review of Systems - Review of Systems All systems: negative (10 systems reviewed and neg with the exception of palpatations) Exam - Constitutional Vital Signs: Temp Pulse Resp BP Pulse Ox 98.4 F 113 H 29 H 132/89 93 12/05/18 03:30 12/05/18 05:01 12/05/18 05:01 12/05/18 05:01 12/05/18 05:01 General appearance: no acute distress - EENT Eyes: other (no scleral icterus) - Neck Neck: supple - Respiratory Respiratory effort: normal - Cardiovascular Rhythm: other (tachy but regular rhythm) - Gastrointestinal General gastrointestinal: Present: soft, non-tender - Integumentary Integumentary: Present: warm, dry - Musculoskeletal Musculoskeletal: normal - Neurologic Neurological: alert and oriented x3 - Psychiatric Psychiatric: appropriate mood/affect - Labs CBC & Chem 7: 12/05/18 05:10 12/05/18 05:10 Lab Results: Laboratory Results - last 24 hr 12/04/18 12/04/18 12/04/18 08:40 12:01 14:54 WBC RBC Hgb Hct MCV MCH MCHC RDW Plt Count Lymph % (Auto) [place] % (Auto) Eos % (Auto) Baso % (Auto) Lymph # [place] # Eos # Baso # Seg Neutrophils % Seg Neutrophils # PT INR Sodium Potassium Chloride Carbon Dioxide Anion Gap BUN Creatinine Estimated GFR BUN/Creatinine Ratio Glucose POC Glucose 148 H 201 H Calcium Phosphorus Magnesium Total Bilirubin 2.20 H Direct Bilirubin 1.1 H Indirect Bilirubin 1.1 AST 4664 H ALT 2941 H Alkaline Phosphatase 114 Total Protein 8.8 H Albumin 4.5 Albumin/Globulin Ratio 1.0 Hepatitis A IgM Ab Hep Bs Antigen Hep B Core IgM Ab Hepatitis C Antibody 12/04/18 12/04/18 12/04/18 14:54 16:47 18:17 WBC RBC Hgb Hct MCV MCH MCHC RDW Plt Count Lymph % (Auto) [place] % (Auto) Eos % (Auto) Baso % (Auto) Lymph # [place] # Eos # Baso # Seg Neutrophils % Seg Neutrophils # PT INR Sodium 131 L Potassium 7.3 H* D Chloride 92.9 L Carbon Dioxide 13 L Anion Gap 32 BUN 40 H Creatinine 2.5 H Estimated GFR 33 BUN/Creatinine Ratio 16 Glucose 209 H POC Glucose 146 H Calcium 9.5 Phosphorus Magnesium Total Bilirubin 2.10 H Direct Bilirubin Indirect Bilirubin AST 4588 H ALT 3167 H Alkaline Phosphatase 114 Total Protein 8.0 Albumin 4.1 Albumin/Globulin Ratio 1.1 Hepatitis A IgM Ab Non-reactive Hep Bs Antigen Non-reactive Hep B Core IgM Ab Non-reactive Hepatitis C Antibody Non-reactive 12/04/18 12/05/18 12/05/18 21:18 01:51 05:10 WBC 11.9 H RBC 5.00 Hgb 12.9 Hct 40.4 MCV 81 L MCH 26 L MCHC 32 RDW 18.0 H Plt Count 187 Lymph % (Auto) 12.8 L [place] % (Auto) 7.5 H Eos % (Auto) 0.3 Baso % (Auto) 0.6 Lymph # 1.5 [place] # 0.9 H Eos # 0.0 Baso # 0.1 Seg Neutrophils % 78.8 H Seg Neutrophils # 9.4 H PT INR Sodium Potassium 4.8 D Chloride Carbon Dioxide Anion Gap BUN Creatinine Estimated GFR BUN/Creatinine Ratio Glucose POC Glucose 188 H Calcium Phosphorus Magnesium Total Bilirubin Direct Bilirubin Indirect Bilirubin AST ALT Alkaline Phosphatase Total Protein Albumin Albumin/Globulin Ratio Hepatitis A IgM Ab Hep Bs Antigen Hep B Core IgM Ab Hepatitis C Antibody 12/05/18 12/05/18 05:10 05:10 WBC RBC Hgb Hct MCV MCH MCHC RDW Plt Count Lymph % (Auto) [place] % (Auto) Eos % (Auto) Baso % (Auto) Lymph # [place] # Eos # Baso # Seg Neutrophils % Seg Neutrophils # PT 38.0 H INR 3.55 H Sodium 137 Potassium 4.0 Chloride 98.6 Carbon Dioxide 21 L D Anion Gap 21 BUN 36 H Creatinine 1.6 H Estimated GFR 55 BUN/Creatinine Ratio 23 Glucose 114 H POC Glucose Calcium 9.4 Phosphorus 3.20 Magnesium 1.70 Total Bilirubin 1.60 H Direct Bilirubin Indirect Bilirubin AST 3429 H ALT 3037 H Alkaline Phosphatase 99 Total Protein 6.7 Albumin 3.4 L Albumin/Globulin Ratio 1.0 Hepatitis A IgM Ab Hep Bs Antigen Hep B Core IgM Ab Hepatitis C Antibody Assessment and Plan In brief, acute severe liver injury with transaminases in thousands, and INR elevated, but normal bili. Repeating LFT and INR in 1 hour for trend (most importantly of the INR). If INR is rapidly rising then patient in acute liver failure and would need to discuss possible transfer to a liver transplant center for closer monitoring. However if INR stable or trending down then the acute l iver injury is starting to improve. update: repeat LFT shows INR improving, indicating synthetic function of the liver is returning. Transaminases improving as well. Continue to avoid hepatotoxic medications. That being said, for this clinical picture and LFT pattern shock liver is more likely that amiodarone induced liver injury which is likely given the hypotension documented on admission 5 days ago. That being said, the prudent course would be to continue to avoid amiodarone. Continue to trend LFT and INR but very reassuring that the INR is improving - Patient Problems (1) Elevated LFTs Current Visit: No Status: Acute
[2018-12-05] MEDS: HumaLOG SUB-Q SCH ×4 (08:33→22:08)
[2018-12-05] MEDS: COLCHICINE PO SCH ×3 (10:12→22:49)
[2018-12-05] MEDS: LOPRESSOR PO SCH ×3 (10:12→21:15)
[2018-12-05] MEDS: PEPCID PO SCH ×2 (10:13→21:15)
[2018-12-05] MEDS: ZYLOPRIM PO SCH ×3 (10:15→22:50)
[2018-12-05] MEDS: NACL 0.9% 1000 ML 1,000 ML IV SCH ×2 (10:17)
[2018-12-05 10:29] LABS: INR 2.97 (0.87-1.13)
[2018-12-05 10:39] LABS: Albumin 3.6 g/dL (3.9-5); Bilirubin,Direct 0.9 mg/dL (0-0.2)
--- NOTE | 2018-12-05 11:44 | Progress Note ---
Assessment and Plan 57yo AAM: 1. Afib w/ VVR * s/p reddy/cv 2 weeks ago - now recurred * on bb 2. Severe NICM * h/o HFrEF * compensated/perhaps slightly dry 3. RIGOBERTO 4. Severe transaminitis * slight improvement w/ inr trending down as well * gi on board * likely due to hypoperfusion? 5. Diabetes 6. Obesity stopped amio and eliquis yesterday given sig hepatic impairment lfts inproving - ? due to chronic low grade hypoperfusion Start IV heparin in am if LFTs improved (also metabolized by liver) Continue gentle IVF - pt is euvolemic, possibly slightly dry vastly improved clinically. Subjective Date of service: 12/05/18 Principal diagnosis: AFlutter; HF Interval history: feels a lot better today Objective Vital Signs Temp Pulse Pulse Resp BP Pulse Ox 12/05/18 10:12 114 H 108/73 12/05/18 09:14 96 12/05/18 08:01 114 H 29 H 108/73 92 12/05/18 07:01 113 H 21 132/89 95 12/05/18 06:01 113 H 27 H 132/89 91 12/05/18 05:01 113 H 29 H 132/89 93 12/05/18 04:01 115 H 26 H 132/89 96 12/05/18 04:00 114 H 21 95 12/05/18 03:30 98.4 F 12/05/18 03:01 113 H 27 H 132/89 98 12/05/18 02:01 111 H 18 132/89 95 12/05/18 01:01 111 H 27 H 132/89 12/05/18 00:01 110 H 16 132/89 12/05/18 00:00 110 H 26 H 95 12/04/18 23:10 98.1 F 12/04/18 23:01 111 H 25 H 132/89 91 12/04/18 22:21 108 H 132/89 12/04/18 22:01 109 H 26 H 92 12/04/18 22:00 110 H 12/04/18 21:00 111 H 30 H 136/112 89 12/04/18 20:00 106 H 109 H 27 H 136/112 85 12/04/18 19:33 97.4 F L 12/04/18 19:00 101 H 33 H 139/92 95 12/04/18 18:00 101 H 30 H 139/92 78 L 12/04/18 17:00 103 H 19 130/104 86 12/04/18 16:00 98 H 21 131/101 12/04/18 15:00 97 H 31 H 130/104 12/04/18 14:17 98 H 131/101 12/04/18 14:00 98 H 24 124/98 97 12/04/18 13:59 95 12/04/18 13:00 107 H 26 H 124/98 12/04/18 12:00 97.6 F 99 H 13 124/98 94 - Physical Examination General: No Apparent Distress HEENT: Positive: PERRL, Normocephaly, Mucus Membranes Moist Neck: Positive: neck supple, trachea midline Neuro: Positive: Grossly Intact Abdomen: Positive: Soft. Negative: Tender Skin: Negative: Rash, Wound Musculoskeletal: No Pain Extremities: Absent: edema - Labs and Meds Cardiac Enzymes 12/04/18 12/04/18 12/05/18 Range/Units 14:54 18:17 05:10 AST 4664 H 4588 H 3429 H (5-40) units/L 12/05/18 Range/Units 10:08 AST 2600 H (5-40) units/L Coagulation 12/05/18 12/05/18 Range/Units 05:10 09:57 PT 38.0 H 33.0 H (12.2-14.9) Sec. INR 3.55 H 2.97 H (0.87-1.13) CBC 12/05/18 Range/Units 05:10 WBC 11.9 H (4.5-11.0) K/mm3 RBC 5.00 (3.65-5.03) M/mm3 Hgb 12.9 (11.8-15.2) gm/dl Hct 40.4 (35.5-45.6) % Plt Count 187 (140-440) K/mm3 Lymph # 1.5 (1.2-5.4) K/mm3 [place] # 0.9 H (0.0-0.8) K/mm3 Eos # 0.0 (0.0-0.4) K/mm3 Baso # 0.1 (0.0-0.1) K/mm3 Comprehensive Metabolic Panel 12/04/18 12/04/18 12/05/18 Range/Units 14:54 18:17 01:51 Sodium 131 L (137-145) mmol/L Potassium 7.3 H* D 4.8 D (3.6-5.0) mmol/L Chloride 92.9 L (98-107) mmol/L Carbon Dioxide 13 L (22-30) mmol/L BUN 40 H (9-20) mg/dL Creatinine 2.5 H (0.8-1.5) mg/dL Glucose 209 H (75-100) mg/dL Calcium 9.5 (8.4-10.2) mg/dL Direct Bilirubin 1.1 H (0-0.2) mg/dL Indirect Bilirubin 1.1 mg/dL AST 4664 H 4588 H (5-40) units/L ALT 2941 H 3167 H (7-56) units/L Alkaline Phosphatase 114 114 (35-129) units/L Total Protein 8.8 H 8.0 (6.3-8.2) g/dL Albumin 4.5 4.1 (3.9-5) g/dL 12/05/18 12/05/18 Range/Units 05:10 10:08 Sodium 137 (137-145) mmol/L Potassium 4.0 (3.6-5.0) mmol/L Chloride 98.6 (98-107) mmol/L Carbon Dioxide 21 L D (22-30) mmol/L BUN 36 H (9-20) mg/dL Creatinine 1.6 H (0.8-1.5) mg/dL Glucose 114 H (75-100) mg/dL Calcium 9.4 (8.4-10.2) mg/dL Direct Bilirubin 0.9 H (0-0.2) mg/dL Indirect Bilirubin 0.8 mg/dL AST 3429 H 2600 H (5-40) units/L ALT 3037 H 2833 H (7-56) units/L Alkaline Phosphatase 99 96 (35-129) units/L Total Protein 6.7 7.0 (6.3-8.2) g/dL Albumin 3.4 L 3.6 L (3.9-5) g/dL - Imaging and Cardiology EKG: image reviewed Echo: report reviewed (11/03/2018 at [facility] showed EF 15-20%, LV severely dilated, LA mod to severely dilated, RV mod dilated, RV systolic function mod reduced, RA severely dilated, mild to mod MR, RVSP 48mmHg.) Cardiac cath: report reviewed ([place] 04/2018: normal coronaries, EF 15%)
--- NOTE | 2018-12-05 11:59 | Progress Note ---
Assessment and Plan Assessment and plan: --George cardona with RVR: JUSTINE guided DC cardioversion on 11/10/2018 received amioderone drip,discomtinued today due to Transaminitis cont eliqublanca, BB TID --Transaminitis; acute liver injury / shock liver, drug induced[amiodarone] LFTs trending down, GI evaluation and recommendations noted and appreciated acute hepatitis panel negative --Coagulopathy/due to acute liver Injury PT INR trending down --Dyspepsia; Maalox as needed Check abdominal ultrasound --Acute kidney injury secondary to ATN; Hold diuretics, gentle hydration, avoid nephrotoxins --Atypical chest pain; resolved --Hypertension, stable on current management --Diabetes type 2. Accu-Cheks sliding scale coverage and ADA diet Insulin as needed --Acute on chronic systolic congestive heart failure Ef 15- 20% on echo 10/2018, hold Lasix in view of a RIGOBERTO Gentle hydration cardiology following --Nonischemic cardiomyopathy --Gout; stable on colchine --Dvt prophylaxis; on Eliquis Monitor closely and adjust management as needed Follow repeat LFTs, abdominal ultrasound, GI evaluation and recommendation Plan of care reviewed with the patient family member at the bedside and his nurse Critical care time 31 minutes History Interval history: Patient seen and examined this morning medical records reviewed Admitted with George cardona with rapid ventricle rate on amiodarone drip which is discontinued Acute hepatic injury with transaminases trending down Patient feels better mild nausea Vital signs noted Hospitalist Physical - Constitutional Vitals: Temp Pulse Resp BP Pulse Ox 98.4 F 114 H 29 H 108/73 96 12/05/18 03:30 12/05/18 10:12 12/05/18 08:01 12/05/18 10:12 12/05/18 09:14 General appearance: Present: no acute distress, well-nourished, obese (morbidly obese) - EENT Eyes: Present: PERRL, EOM intact - Neck Neck: Present: supple, normal ROM - Respiratory Respiratory effort: normal Respiratory: bilateral: diminished, negative: rales, rhonchi, wheezing - Cardiovascular Rhythm: regular Heart Sounds: Present: S1 & S2 - Extremities Extremities: no ischemia, No edema - Abdominal General gastrointestinal: soft, non-tender, non-distended, normal bowel sounds - Integumentary Integumentary: Present: clear, warm - Psychiatric Psychiatric: appropriate mood/affect, cooperative - Neurologic Neurologic: CNII-XII intact, moves all extremities Results - Labs CBC & Chem 7: 12/05/18 05:10 12/05/18 05:10 Labs: Laboratory Last Values WBC 11.9 K/mm3 (4.5-11.0) H 12/05/18 05:10 RBC 5.00 M/mm3 (3.65-5.03) 12/05/18 05:10 Hgb 12.9 gm/dl (11.8-15.2) 12/05/18 05:10 Hct 40.4 % (35.5-45.6) 12/05/18 05:10 MCV 81 fl (84-94) L 12/05/18 05:10 MCH 26 pg (28-32) L 12/05/18 05:10 MCHC 32 % (32-34) 12/05/18 05:10 RDW 18.0 % (13.2-15.2) H 12/05/18 05:10 Plt Count 187 K/mm3 (140-440) 12/05/18 05:10 Lymph % (Auto) 12.8 % (13.4-35.0) L 12/05/18 05:10 [place] % (Auto) 7.5 % (0.0-7.3) H 12/05/18 05:10 Eos % (Auto) 0.3 % (0.0-4.3) 12/05/18 05:10 Baso % (Auto) 0.6 % (0.0-1.8) 12/05/18 05:10 Lymph # 1.5 K/mm3 (1.2-5.4) 12/05/18 05:10 [place] # 0.9 K/mm3 (0.0-0.8) H 12/05/18 05:10 Eos # 0.0 K/mm3 (0.0-0.4) 12/05/18 05:10 Baso # 0.1 K/mm3 (0.0-0.1) 12/05/18 05:10 Seg Neutrophils % 78.8 % (40.0-70.0) H 12/05/18 05:10 Seg Neutrophils # 9.4 K/mm3 (1.8-7.7) H 12/05/18 05:10 PT 33.0 Sec. (12.2-14.9) H 12/05/18 09:57 INR 2.97 (0.87-1.13) H 12/05/18 09:57 APTT 31.3 Sec. (24.2-36.6) 11/30/18 16:20 Sodium 137 mmol/L (137-145) 12/05/18 05:10 Potassium 4.0 mmol/L (3.6-5.0) 12/05/18 05:10 Chloride 98.6 mmol/L (98-107) 12/05/18 05:10 Carbon Dioxide 21 mmol/L (22-30) L D 12/05/18 05:10 21 mmol/L 12/05/18 05:10 BUN 36 mg/dL (9-20) H 12/05/18 05:10 1.6 mg/dL (0.8-1.5) H 12/05/18 05:10 Estimated GFR 55 ml/min 12/05/18 05:10 23 % 12/05/18 05:10 Glucose 114 mg/dL (75-100) H 12/05/18 05:10 POC Glucose 104 (70-105) 12/05/18 11:22 Calcium 9.4 mg/dL (8.4-10.2) 12/05/18 05:10 Phosphorus 3.20 mg/dL (2.5-4.5) 12/05/18 05:10 Magnesium 1.70 mg/dL (1.7-2.3) 12/05/18 05:10 1.70 mg/dL (0.1-1.2) H 12/05/18 10:08 0.9 mg/dL (0-0.2) H 12/05/18 10:08 0.8 mg/dL 12/05/18 10:08 AST 2600 units/L (5-40) H 12/05/18 10:08 ALT 2833 units/L (7-56) H 12/05/18 10:08 96 units/L (35-129) 12/05/18 10:08 < 0.010 ng/mL (0.00-0.029) 11/30/18 20:44 NT-Pro-B Natriuret Pep 4277 pg/mL (0-900) H 11/30/18 16:20 7.0 g/dL (6.3-8.2) 12/05/18 10:08 3.6 g/dL (3.9-5) L 12/05/18 10:08 1.1 % 12/05/18 10:08 Yellow (Yellow) 11/30/18 Unknown Slightly-cloudy (Clear) 11/30/18 Unknown 5.0 (5.0-7.0) 11/30/18 Unknown Ur Specific [place] 1.012 (1.003-1.030) 11/30/18 Unknown <15 mg/dl mg/dL (Negative) 11/30/18 Unknown Neg mg/dL (Negative) 11/30/18 Unknown Neg mg/dL (Negative) 11/30/18 Unknown Neg (Negative) 11/30/18 Unknown Neg (Negative) 11/30/18 Unknown Neg (Negative) 11/30/18 Unknown < 2.0 mg/dL (<2.0) 11/30/18 Unknown Ur Leukocyte Esterase Sm (Negative) 11/30/18 Unknown 14.0 /HPF (0.0-6.0) H 11/30/18 Unknown 1.0 /HPF (0.0-6.0) 11/30/18 Unknown Few /HPF 11/30/18 Unknown Hepatitis A IgM Ab Non-reactive (NonReactive) 12/04/18 14:54 Hep Bs Antigen Non-reactive (Negative) 12/04/18 14:54 Hep B Core IgM Ab Non-reactive (NonReactive) 12/04/18 14:54 Non-reactive (NonReactive) 12/04/18 14:54 Active Medications - Current Medications Current Medications: Generic Name Dose Route Start Last Admin Trade Name Freq PRN Reason Stop Dose Admin Al Hydrox/Mg Hydrox/Simethicone 30 ml 12/04/18 13:08 Alum-Mag Hydrox-Simeth 666-073-78jc/5ml PO Q4H PRN Indigestion Allopurinol 100 mg 12/01/18 10:00 12/05/18 10:15 Zyloprim PO 100 mg QDAY JANINE Administration Colchicine 0.6 mg 12/01/18 10:00 12/05/18 10:12 Colchicine PO 0.6 mg DAILY JANINE Administration Dextrose 50 ml 12/01/18 00:37 12/04/18 23:15 D50w (25gm) Syringe IV 50 ml PRN PRN Administration Hypoglycemia Famotidine 20 mg 12/01/18 10:00 12/05/18 10:13 Pepcid PO 20 mg BID JANINE Administration Sodium Chloride 1,000 mls @ 75 mls/hr 12/04/18 13:00 12/05/18 10:17 Nacl 0.9% 1000 Ml IV 75 mls/hr DIRECT JANINE Administration Insulin Human Lispro 0 unit 12/01/18 07:30 12/05/18 08:33 Humalog SUB-Q Not Given ACHS JANINE Protocol Metoprolol Tartrate 25 mg 12/02/18 14:00 12/05/18 10:12 Lopressor PO 25 mg TID JANINE Administration Ondansetron HCl 4 mg 12/01/18 00:37 12/04/18 06:49 Zofran IV 4 mg Q4H PRN Administration Nausea And Vomiting Sodium Chloride 10 ml 12/01/18 10:00 12/04/18 22:21 Sodium Chloride Flush Syringe 10 Ml IV 10 ml BID JANINE Administration Sodium Chloride 10 ml 12/01/18 00:37 Sodium Chloride Flush Syringe 10 Ml IV PRN PRN LINE FLUSH
[2018-12-05] MEDS: SODIUM CHLORIDE FLUSH SYRINGE 10 ML IV SCH (12:21)
--- NOTE | 2018-12-05 20:44 | Ultrasound Report ---
PROCEDURE: US ABDOMEN COMPLETE TECHNIQUE: Real-time sonography in multiple planes of the abdomen was performed with image documenta tion. HISTORY: Abd pain,transaminitis COMPARISONS: None . FINDINGS: Liver: Normal size and echotexture with no evidence of cystic or solid mass lesions. Gallbladder: Fluid filled. No gallstones, wall thickening, pericholecystic fluid, or sonographic Mur phy's sign. Intrahepatic bile ducts: Normal caliber . Extrahepatic bile ducts: Normal caliber. Pancreas: Normal as visualized with suboptimal depiction of the pancreatic tail. Aorta: Visualized portions appear normal. IVC: Visualized portions appear normal. RIGHT kidney: A small cystic lesion measuring 1.6 x 0.8 cm is noted in the upper portion. No focal r enal mass, calculus, or hydronephrosis. Length: 12.6 x 5.6 x 6.4 cm. LEFT kidney: Normal echotexture. No focal renal mass, or hydronephrosis. An echogenic focus with sha dowing measuring about 8 mm is noted in the upper portion of the left kidney most likely representing a calculus. Length: 12.5 x 5.8 x 6.0 cm. Spleen: Normal size and echotexture. No focal lesions. Intraperitoneal fluid: None . Other: None . IMPRESSION: Possible nonobstructive calculus measuring 8 mm in the left kidney.. Otherwise negative study This document is electronically signed by Ravi Don MD., Dec 05 2018 08:41:50 PM ET
[2018-12-05] MEDS: SODIUM CHLORIDE FLUSH SYRINGE 10 ML IV PRN (21:21)
[2018-12-06 04:51] LABS: Basophils % (Auto) 0.4 % (0.0-1.8); Eosinophils # (Auto) 0.1 K/mm3 (0.0-0.4); Eosinophils % (Auto) 0.5 % (0.0-4.3); Hemoglobin 12.4 gm/dl (11.8-15.2); Lymphocytes # (Auto) 1.5 K/mm3 (1.2-5.4); Lymphocytes % (Auto) 14.1 % (13.4-35.0); Mean Corpuscular HGB Conc 33 % (32-34); Mean Corpuscular Volume 81 fl (84-94); Platelet Count 205 K/mm3 (140-440); Red Cell Distribution Width 17.6 % (13.2-15.2)
[2018-12-06 04:53] LABS: INR 2.14 (0.87-1.13)
[2018-12-06 05:07] LABS: Albumin 3.3 g/dL (3.9-5); BUN/Creatinine Ratio 19; Blood Urea Nitrogen 19 mg/dL (9-20); Calcium 8.3 mg/dL (8.4-10.2); Hemolysis Index 0
[2018-12-06 05:23] LABS: Alanine Aminotransferase 1938 units/L (7-56)
[2018-12-06] MEDS: HumaLOG SUB-Q SCH ×4 (09:57→22:34)
[2018-12-06] MEDS: PEPCID PO SCH ×2 (09:58→22:32)
[2018-12-06] MEDS: SODIUM CHLORIDE FLUSH SYRINGE 10 ML IV SCH ×3 (09:59→22:33)
[2018-12-06] MEDS: LOPRESSOR PO SCH ×3 (10:00→20:31)
[2018-12-06] MEDS: ZYLOPRIM PO SCH (10:02)
[2018-12-06] MEDS: COLCHICINE PO SCH (10:02)
--- NOTE | 2018-12-06 13:56 | Progress Note ---
Assessment and Plan Assessment and plan: --A. fib with RVR: Remains rapid ventricular rate Cardiology planning JUSTINE guided DC cardioversion tomorrow [h/o JUSTINE guided DC cardioversion on 11/10/2018], received amioderone drip, discomtinued due acute liver failure /Transaminitis cont eliquis, BB TID --Transaminitis; acute liver injury / shock liver, drug induced[amiodarone] LFTs trending down, GI following, abdominal ultrasound no acute findings acute hepatitis panel negative --Coagulopathy/due to acute liver Injury PT INR trending down --Dyspepsia; Maalox as needed Check abdominal ultrasound --Acute kidney injury secondary to ATN; Hold diuretics, gentle hydration, avoid nephrotoxins --Atypical chest pain; resolved --Hypertension, stable on current management --Diabetes type 2. Accu-Cheks sliding scale coverage and ADA diet Insulin as needed --Acute on chronic systolic congestive heart failure Ef 15- 20% on echo 10/2018, hold Lasix in view of a RIGOBERTO Gentle hydration cardiology following --Nonischemic cardiomyopathy --Moderate malnutrition and hypoalbuminemia; nutrition supplements Supportive care --Gout; stable on colchine --Dvt prophylaxis; on Eliquis Disposition; follow cardiology recommendations Follow clinically and DC in 1-2 days if stable History Interval history: Patient seen and examined medical records reviewed No new events reported by the nursing staff Liver function tests PT/INR trending down Patient feels better no new complaints Vital signs noted Hospitalist Physical - Constitutional Vitals: Temp Pulse Resp BP Pulse Ox 97.9 F 116 H 21 107/71 96 12/06/18 08:00 12/06/18 10:00 12/06/18 06:01 12/06/18 10:00 12/06/18 09:21 General appearance: Present: no acute distress, well-nourished, obese (morbidly obese) - EENT Eyes: Present: PERRL, EOM intact - Neck Neck: Present: supple, normal ROM - Respiratory Respiratory effort: normal Respiratory: bilateral: diminished, negative: rales, rhonchi, wheezing - Cardiovascular Rhythm: irregularly irregular (tachycardia) - Extremities Extremities: no ischemia, No edema - Abdominal General gastrointestinal: soft, non-tender, non-distended, normal bowel sounds - Integumentary Integumentary: Present: clear, warm - Psychiatric Psychiatric: appropriate mood/affect, cooperative - Neurologic Neurologic: CNII-XII intact, moves all extremities Results - Labs CBC & Chem 7: 12/06/18 04:05 12/06/18 04:05 Labs: Laboratory Last Values WBC 10.6 K/mm3 (4.5-11.0) 12/06/18 04:05 RBC 4.70 M/mm3 (3.65-5.03) 12/06/18 04:05 Hgb 12.4 gm/dl (11.8-15.2) 12/06/18 04:05 Hct 38.0 % (35.5-45.6) 12/06/18 04:05 MCV 81 fl (84-94) L 12/06/18 04:05 MCH 26 pg (28-32) L 12/06/18 04:05 MCHC 33 % (32-34) 12/06/18 04:05 RDW 17.6 % (13.2-15.2) H 12/06/18 04:05 Plt Count 205 K/mm3 (140-440) 12/06/18 04:05 Lymph % (Auto) 14.1 % (13.4-35.0) 12/06/18 04:05 [place] % (Auto) 9.0 % (0.0-7.3) H 12/06/18 04:05 Eos % (Auto) 0.5 % (0.0-4.3) 12/06/18 04:05 Baso % (Auto) 0.4 % (0.0-1.8) 12/06/18 04:05 Lymph # 1.5 K/mm3 (1.2-5.4) 12/06/18 04:05 [place] # 1.0 K/mm3 (0.0-0.8) H 12/06/18 04:05 Eos # 0.1 K/mm3 (0.0-0.4) 12/06/18 04:05 Baso # 0.0 K/mm3 (0.0-0.1) 12/06/18 04:05 Seg Neutrophils % 76.0 % (40.0-70.0) H 12/06/18 04:05 Seg Neutrophils # 8.1 K/mm3 (1.8-7.7) H 12/06/18 04:05 PT 25.4 Sec. (12.2-14.9) H 12/06/18 04:05 INR 2.14 (0.87-1.13) H 12/06/18 04:05 APTT 31.3 Sec. (24.2-36.6) 11/30/18 16:20 Sodium 138 mmol/L (137-145) 12/06/18 04:05 Potassium 3.9 mmol/L (3.6-5.0) 12/06/18 04:05 Chloride 102.7 mmol/L (98-107) 12/06/18 04:05 Carbon Dioxide 23 mmol/L (22-30) 12/06/18 04:05 16 mmol/L 12/06/18 04:05 BUN 19 mg/dL (9-20) 12/06/18 04:05 1.0 mg/dL (0.8-1.5) 12/06/18 04:05 Estimated GFR > 60 ml/min 12/06/18 04:05 19 % 12/06/18 04:05 Glucose 134 mg/dL (75-100) H 12/06/18 04:05 POC Glucose 197 (70-105) H 12/06/18 11:38 Calcium 8.3 mg/dL (8.4-10.2) L 12/06/18 04:05 Phosphorus 3.20 mg/dL (2.5-4.5) 12/05/18 05:10 Magnesium 1.70 mg/dL (1.7-2.3) 12/05/18 05:10 1.40 mg/dL (0.1-1.2) H 12/06/18 04:05 0.9 mg/dL (0-0.2) H 12/05/18 10:08 0.8 mg/dL 12/05/18 10:08 AST 1071 units/L (5-40) H 12/06/18 04:05 ALT 1938 units/L (7-56) H 12/06/18 04:05 86 units/L (35-129) 12/06/18 04:05 < 0.010 ng/mL (0.00-0.029) 11/30/18 20:44 NT-Pro-B Natriuret Pep 4277 pg/mL (0-900) H 11/30/18 16:20 6.4 g/dL (6.3-8.2) 12/06/18 04:05 3.3 g/dL (3.9-5) L 12/06/18 04:05 1.1 % 12/06/18 04:05 Yellow (Yellow) 11/30/18 Unknown Slightly-cloudy (Clear) 11/30/18 Unknown 5.0 (5.0-7.0) 11/30/18 Unknown Ur Specific [place] 1.012 (1.003-1.030) 11/30/18 Unknown <15 mg/dl mg/dL (Negative) 11/30/18 Unknown Neg mg/dL (Negative) 11/30/18 Unknown Neg mg/dL (Negative) 11/30/18 Unknown Neg (Negative) 11/30/18 Unknown Neg (Negative) 11/30/18 Unknown Neg (Negative) 11/30/18 Unknown < 2.0 mg/dL (<2.0) 11/30/18 Unknown Ur Leukocyte Esterase Sm (Negative) 11/30/18 Unknown 14.0 /HPF (0.0-6.0) H 11/30/18 Unknown 1.0 /HPF (0.0-6.0) 11/30/18 Unknown Few /HPF 11/30/18 Unknown Hepatitis A IgM Ab Non-reactive (NonReactive) 12/04/18 14:54 Hep Bs Antigen Non-reactive (Negative) 12/04/18 14:54 Hep B Core IgM Ab Non-reactive (NonReactive) 12/04/18 14:54 Non-reactive (NonReactive) 12/04/18 14:54 Active Medications - Current Medications Current Medications: Generic Name Dose Route Start Last Admin Trade Name Freq PRN Reason Stop Dose Admin Al Hydrox/Mg Hydrox/Simethicone 30 ml 12/04/18 13:08 Alum-Mag Hydrox-Simeth 416-743-65ux/5ml PO Q4H PRN Indigestion Allopurinol 100 mg 12/01/18 10:00 12/06/18 10:02 Zyloprim PO 100 mg QDAY JANINE Administration Colchicine 0.6 mg 12/01/18 10:00 12/06/18 10:02 Colchicine PO 0.6 mg DAILY JANINE Administration Dextrose 50 ml 12/01/18 00:37 12/04/18 23:15 D50w (25gm) Syringe IV 50 ml PRN PRN Administration Hypoglycemia Famotidine 20 mg 12/01/18 10:00 12/06/18 09:58 Pepcid PO 20 mg BID JANINE Administration Sodium Chloride 1,000 mls @ 75 mls/hr 12/04/18 13:00 12/05/18 21:20 Nacl 0.9% 1000 Ml IV Infused DIRECT JANINE Infusion Insulin Human Lispro 0 unit 12/01/18 07:30 12/06/18 09:57 Humalog SUB-Q 3 unit ACHS JANINE Administration Protocol Metoprolol Tartrate 25 mg 12/02/18 14:00 12/06/18 10:00 Lopressor PO 25 mg TID JANINE Administration Ondansetron HCl 4 mg 12/01/18 00:37 12/04/18 06:49 Zofran IV 4 mg Q4H PRN Administration Nausea And Vomiting Sodium Chloride 10 ml 12/01/18 10:00 12/06/18 09:59 Sodium Chloride Flush Syringe 10 Ml IV 10 ml BID JANINE Administration Sodium Chloride 10 ml 12/01/18 00:37 12/05/18 21:21 Sodium Chloride Flush Syringe 10 Ml IV 10 ml PRN PRN Administration LINE FLUSH
--- NOTE | 2018-12-06 14:44 | Progress Note ---
Assessment and Plan Plan for JUSTINE guided DCCV in AM. NPO after MN. The patient has been seen in conjunction with Dr. Gamble who agrees with the assessment and plan of care. - Patient Problems (1) Atrial flutter with rapid ventricular response Current Visit: Yes Status: Acute (2) Nonischemic dilated cardiomyopathy Current Visit: Yes Status: Chronic (3) Normal coronary arteries Current Visit: Yes Status: Chronic (4) Diabetes Current Visit: Yes Status: Chronic (5) Obesity Current Visit: Yes Status: Chronic Subjective Date of service: 12/06/18 Principal diagnosis: AFlutter; HF Interval history: pt laying flat comfortably in bed, no current complaints. Remains in AFlutter with HR 115s. Objective Last Vital Signs Temp 98 F 12/06/18 12:00 Pulse 116 H 12/06/18 14:29 Resp 36 H 12/06/18 13:01 BP 115/82 12/06/18 14:29 Pulse Ox 95 12/06/18 13:01 - Physical Examination General: No Apparent Distress HEENT: Positive: PERRL, Normocephaly, Mucus Membranes Moist Neck: Positive: neck supple, trachea midline Cardiac: Positive: irregularly irregular, S1/S2, Tachycardia Lungs: Positive: Decreased Breath Sounds Neuro: Positive: Grossly Intact Abdomen: Positive: Soft. Negative: Tender Skin: Negative: Rash, Wound Musculoskeletal: No Pain Extremities: Absent: edema - Labs and Meds Cardiac Enzymes 12/06/18 Range/Units 04:05 AST 1071 H (5-40) units/L Coagulation 12/06/18 Range/Units 04:05 PT 25.4 H (12.2-14.9) Sec. INR 2.14 H (0.87-1.13) CBC 12/06/18 Range/Units 04:05 WBC 10.6 (4.5-11.0) K/mm3 RBC 4.70 (3.65-5.03) M/mm3 Hgb 12.4 (11.8-15.2) gm/dl Hct 38.0 (35.5-45.6) % Plt Count 205 (140-440) K/mm3 Lymph # 1.5 (1.2-5.4) K/mm3 [place] # 1.0 H (0.0-0.8) K/mm3 Eos # 0.1 (0.0-0.4) K/mm3 Baso # 0.0 (0.0-0.1) K/mm3 Comprehensive Metabolic Panel 12/06/18 Range/Units 04:05 Sodium 138 (137-145) mmol/L Potassium 3.9 (3.6-5.0) mmol/L Chloride 102.7 (98-107) mmol/L Carbon Dioxide 23 (22-30) mmol/L BUN 19 (9-20) mg/dL Creatinine 1.0 (0.8-1.5) mg/dL Glucose 134 H (75-100) mg/dL Calcium 8.3 L (8.4-10.2) mg/dL AST 1071 H (5-40) units/L ALT 1938 H (7-56) units/L Alkaline Phosphatase 86 (35-129) units/L Total Protein 6.4 (6.3-8.2) g/dL Albumin 3.3 L (3.9-5) g/dL - Imaging and Cardiology EKG: image reviewed Echo: report reviewed (11/03/2018 at [facility] showed EF 15-20%, LV severely dilated, LA mod to severely dilated, RV mod dilated, RV systolic function mod reduced, RA severely dilated, mild to mod MR, RVSP 48mmHg.) Cardiac cath: report reviewed ([place] 04/2018: normal coronaries, EF 15%)
--- NOTE | 2018-12-06 15:29 | Gastroenterology Progress Note ---
<SHADY CEJA - Last Filed: 12/06/18 15:29> Assessment and Plan 1.elevated LFTs -INR 2.14-trending down (indicating synthetic function of the liver returning) -LFTs-trending down -etiology-most likely 2/2 shock liver ( +/- amiodarone) -clinically, patient reports feeling better today. Currently w/o GI complaints. Denies abd pain, N/V, or signs of bleeding. Tolerating diet. -continue to avoid hepatotoxic medications -continue to trend labs and supportive care -patient to f/u in clinic upon discharge (1-2 weeks to recheck labs)- need for f/u discussed with patient with understanding voiced and office info/card given to patient -no further GI recommendations at this time -will sign off, please call if needed Subjective Date of service: 12/06/18 Principal diagnosis: elevated LFTs Interval history: Patient resting in bed w/o acute distress. Reports feeling better and is currently w/o GI complaints. Denies abd pain, N/V, or signs of bleeding. Tolerating diet. Objective - Constitutional Vitals: Temp Pulse Resp BP Pulse Ox 98.0 F 116 H 36 H 115/82 95 12/06/18 12:00 12/06/18 14:29 12/06/18 13:01 12/06/18 14:29 12/06/18 13:01 General appearance: no acute distress - Respiratory Respiratory: bilateral: CTA - Cardiovascular Rhythm: other (irregular) - Gastrointestinal General gastrointestinal: Present: soft, non-tender, non-distended, normal bowel sounds - Neurologic Neurological: alert and oriented x3 - Labs CBC & Chem 7: 12/06/18 04:05 12/06/18 04:05 Labs: Laboratory Results - last 24 hr 12/05/18 12/05/18 12/06/18 17:02 21:17 04:05 WBC RBC Hgb Hct MCV MCH MCHC RDW Plt Count Lymph % (Auto) [place] % (Auto) Eos % (Auto) Baso % (Auto) Lymph # [place] # Eos # Baso # Seg Neutrophils % Seg Neutrophils # PT 25.4 H INR 2.14 H Sodium Potassium Chloride Carbon Dioxide Anion Gap BUN Creatinine Estimated GFR BUN/Creatinine Ratio Glucose POC Glucose 175 H 176 H Calcium Total Bilirubin AST ALT Alkaline Phosphatase Total Protein Albumin Albumin/Globulin Ratio 12/06/18 12/06/18 12/06/18 04:05 04:05 07:55 WBC 10.6 RBC 4.70 Hgb 12.4 Hct 38.0 MCV 81 L MCH 26 L MCHC 33 RDW 17.6 H Plt Count 205 Lymph % (Auto) 14.1 [place] % (Auto) 9.0 H Eos % (Auto) 0.5 Baso % (Auto) 0.4 Lymph # 1.5 [place] # 1.0 H Eos # 0.1 Baso # 0.0 Seg Neutrophils % 76.0 H Seg Neutrophils # 8.1 H PT INR Sodium 138 Potassium 3.9 Chloride 102.7 Carbon Dioxide 23 Anion Gap 16 BUN 19 Creatinine 1.0 Estimated GFR > 60 BUN/Creatinine Ratio 19 Glucose 134 H POC Glucose 161 H Calcium 8.3 L Total Bilirubin 1.40 H AST 1071 H ALT 1938 H Alkaline Phosphatase 86 Total Protein 6.4 Albumin 3.3 L Albumin/Globulin Ratio 1.1 12/06/18 11:38 WBC RBC Hgb Hct MCV MCH MCHC RDW Plt Count Lymph % (Auto) [place] % (Auto) Eos % (Auto) Baso % (Auto) Lymph # [place] # Eos # Baso # Seg Neutrophils % Seg Neutrophils # PT INR Sodium Potassium Chloride Carbon Dioxide Anion Gap BUN Creatinine Estimated GFR BUN/Creatinine Ratio Glucose POC Glucose 197 H Calcium Total Bilirubin AST ALT Alkaline Phosphatase Total Protein Albumin Albumin/Globulin Ratio <FARHAT LANDON - Last Filed: 12/06/18 21:01> Assessment and Plan Patient seen and examined. I have reviewed the advanced practitioner's evaluation, assessment, and plan, and agree with them. I note the following additions: no GI complaints, LFT/INR improving consistent with shock liver, so will sign off. I do recommend he be seen as an outpatient to ensure no underlying liver dysfunction given the elevation of the INR with the acute liver injury. - Patient Problems (1) Elevated LFTs Current Visit: No Status: Acute Objective - Constitutional Vitals: Temp Pulse Resp BP Pulse Ox 97.9 F 112 H 19 115/82 100 12/06/18 16:00 12/06/18 19:01 12/06/18 19:01 12/06/18 19:01 12/06/18 19:01 - Labs CBC & Chem 7: 12/06/18 04:05 12/06/18 04:05 Labs: Laboratory Results - last 24 hr 12/05/18 12/06/18 12/06/18 21:17 04:05 04:05 WBC RBC Hgb Hct MCV MCH MCHC RDW Plt Count Lymph % (Auto) [place] % (Auto) Eos % (Auto) Baso % (Auto) Lymph # [place] # Eos # Baso # Seg Neutrophils % Seg Neutrophils # PT 25.4 H INR 2.14 H Sodium 138 Potassium 3.9 Chloride 102.7 Carbon Dioxide 23 Anion Gap 16 BUN 19 Creatinine 1.0 Estimated GFR > 60 BUN/Creatinine Ratio 19 Glucose 134 H POC Glucose 176 H Calcium 8.3 L Total Bilirubin 1.40 H AST 1071 H ALT 1938 H Alkaline Phosphatase 86 Total Protein 6.4 Albumin 3.3 L Albumin/Globulin Ratio 1.1 12/06/18 12/06/18 12/06/18 04:05 07:55 11:38 WBC 10.6 RBC 4.70 Hgb 12.4 Hct 38.0 MCV 81 L MCH 26 L MCHC 33 RDW 17.6 H Plt Count 205 Lymph % (Auto) 14.1 [place] % (Auto) 9.0 H Eos % (Auto) 0.5 Baso % (Auto) 0.4 Lymph # 1.5 [place] # 1.0 H Eos # 0.1 Baso # 0.0 Seg Neutrophils % 76.0 H Seg Neutrophils # 8.1 H PT INR Sodium Potassium Chloride Carbon Dioxide Anion Gap BUN Creatinine Estimated GFR BUN/Creatinine Ratio Glucose POC Glucose 161 H 197 H Calcium Total Bilirubin AST ALT Alkaline Phosphatase Total Protein Albumin Albumin/Globulin Ratio 12/06/18 16:27 WBC RBC Hgb Hct MCV MCH MCHC RDW Plt Count Lymph % (Auto) [place] % (Auto) Eos % (Auto) Baso % (Auto) Lymph # [place] # Eos # Baso # Seg Neutrophils % Seg Neutrophils # PT INR Sodium Potassium Chloride Carbon Dioxide Anion Gap BUN Creatinine Estimated GFR BUN/Creatinine Ratio Glucose POC Glucose 129 H Calcium Total Bilirubin AST ALT Alkaline Phosphatase Total Protein Albumin Albumin/Globulin Ratio
[2018-12-06] MEDS ORDERED: COLCHICINE PO PRN (22:51)
[2018-12-06] MEDS ORDERED: NORCO 5/325 PO PRN (23:02)
[2018-12-07 07:28] LABS: Basophils # (Auto) 0.1 K/mm3 (0.0-0.1); Basophils % (Auto) 0.6 % (0.0-1.8); Eosinophils % (Auto) 0.4 % (0.0-4.3); Hematocrit 38.6 % (35.5-45.6); Hemoglobin 12.2 gm/dl (11.8-15.2); Lymphocytes # (Auto) 1.8 K/mm3 (1.2-5.4); Lymphocytes % (Auto) 19.5 % (13.4-35.0); Mean Corpuscular HGB Conc 32 % (32-34); Mean Corpuscular Volume 81 fl (84-94); Monocytes % (Auto) 11.2 % (0.0-7.3); Platelet Count 178 K/mm3 (140-440); Red Blood Count 4.75 M/mm3 (3.65-5.03)
[2018-12-07] MEDS: HumaLOG SUB-Q SCH ×4 (07:30→21:37)
[2018-12-07 07:38] LABS: INR 1.7 (0.87-1.13)
[2018-12-07 07:58] LABS: Albumin 3.4 g/dL (3.9-5); BUN/Creatinine Ratio 16; Blood Urea Nitrogen 14 mg/dL (9-20); Calcium 8.3 mg/dL (8.4-10.2); Hemolysis Index 0
--- NOTE | 2018-12-07 08:02 | Progress Note ---
Assessment and Plan Assessment and plan: --A. fib with RVR: Remains rapid ventricular rate Cardiology planning JUSTINE guided DC cardioversion today [h/o JUSTINE guided DC cardioversion on 11/10/2018], received amioderone drip, discomtinued due acute liver failure /Transaminitis cont eliquis, BB , supportive care --Transaminitis; acute liver injury / shock liver, drug induced[amiodarone] LFTs trending down, GI following, abdominal ultrasound no acute findings acute hepatitis panel negative --Coagulopathy/due to acute liver Injury PT INR trending down --Dyspepsia; Maalox as needed Check abdominal ultrasound --Acute kidney injury secondary to ATN; Hold diuretics, gentle hydration, avoid nephrotoxins --Atypical chest pain; resolved --Hypertension, stable on current management --Diabetes type 2. Accu-Cheks sliding scale coverage and ADA diet Insulin as needed --Acute on chronic systolic congestive heart failure Ef 15- 20% on echo 10/2018, hold Lasix in view of a RIGOBERTO Gentle hydration cardiology following --Nonischemic cardiomyopathy --Moderate malnutrition and hypoalbuminemia; nutrition supplements Supportive care --Gout; stable on colchine --Dvt prophylaxis; on Eliquis Disposition; follow cardiology recommendations Follow clinically and DC in 1-2 days if stable History Interval history: Patient seen and examined medical records reviewed Scheduled for JUSTINE guided cardioversion His better no new complaints Remains A. fib with rapid ventricular rate Vital signs reviewed Hospitalist Physical - Constitutional Vitals: Temp Pulse Resp BP Pulse Ox 98 F 113 H 25 H 136/88 97 12/07/18 04:00 12/07/18 07:01 12/07/18 07:01 12/07/18 07:01 12/07/18 07:01 General appearance: Present: no acute distress, well-nourished, obese (morbidly obese) - EENT Eyes: Present: PERRL, EOM intact - Neck Neck: Present: supple, normal ROM - Respiratory Respiratory effort: normal Respiratory: bilateral: diminished, negative: rales, rhonchi, wheezing - Cardiovascular Rhythm: regular Heart Sounds: Present: S1 & S2 - Extremities Extremities: no ischemia, No edema - Abdominal General gastrointestinal: soft, non-tender, non-distended - Integumentary Integumentary: Present: clear, warm - Psychiatric Psychiatric: appropriate mood/affect, cooperative - Neurologic Neurologic: moves all extremities Results - Labs CBC & Chem 7: 12/07/18 06:54 12/07/18 06:54 Labs: Laboratory Last Values WBC 9.2 K/mm3 (4.5-11.0) 12/07/18 06:54 RBC 4.75 M/mm3 (3.65-5.03) 12/07/18 06:54 Hgb 12.2 gm/dl (11.8-15.2) 12/07/18 06:54 Hct 38.6 % (35.5-45.6) 12/07/18 06:54 MCV 81 fl (84-94) L 12/07/18 06:54 MCH 26 pg (28-32) L 12/07/18 06:54 MCHC 32 % (32-34) 12/07/18 06:54 RDW 18.0 % (13.2-15.2) H 12/07/18 06:54 Plt Count 178 K/mm3 (140-440) 12/07/18 06:54 Lymph % (Auto) 19.5 % (13.4-35.0) 12/07/18 06:54 [place] % (Auto) 11.2 % (0.0-7.3) H 12/07/18 06:54 Eos % (Auto) 0.4 % (0.0-4.3) 12/07/18 06:54 Baso % (Auto) 0.6 % (0.0-1.8) 12/07/18 06:54 Lymph # 1.8 K/mm3 (1.2-5.4) 12/07/18 06:54 [place] # 1.0 K/mm3 (0.0-0.8) H 12/07/18 06:54 Eos # 0.0 K/mm3 (0.0-0.4) 12/07/18 06:54 Baso # 0.1 K/mm3 (0.0-0.1) 12/07/18 06:54 Seg Neutrophils % 68.3 % (40.0-70.0) 12/07/18 06:54 Seg Neutrophils # 6.3 K/mm3 (1.8-7.7) 12/07/18 06:54 PT 21.1 Sec. (12.2-14.9) H 12/07/18 06:54 INR 1.70 (0.87-1.13) H 12/07/18 06:54 APTT 31.3 Sec. (24.2-36.6) 11/30/18 16:20 Sodium 138 mmol/L (137-145) 12/07/18 06:54 Potassium 3.9 mmol/L (3.6-5.0) 12/07/18 06:54 Chloride 102.9 mmol/L (98-107) 12/07/18 06:54 Carbon Dioxide 20 mmol/L (22-30) L 12/07/18 06:54 19 mmol/L 12/07/18 06:54 BUN 14 mg/dL (9-20) 12/07/18 06:54 0.9 mg/dL (0.8-1.5) 12/07/18 06:54 Estimated GFR > 60 ml/min 12/07/18 06:54 16 % 12/07/18 06:54 Glucose 145 mg/dL (75-100) H 12/07/18 06:54 POC Glucose 243 (70-105) H 12/06/18 21:37 Calcium 8.3 mg/dL (8.4-10.2) L 12/07/18 06:54 Phosphorus 3.20 mg/dL (2.5-4.5) 12/05/18 05:10 Magnesium 1.70 mg/dL (1.7-2.3) 12/05/18 05:10 1.60 mg/dL (0.1-1.2) H 12/07/18 06:54 0.9 mg/dL (0-0.2) H 12/05/18 10:08 0.8 mg/dL 12/05/18 10:08 AST 599 units/L (5-40) H 12/07/18 06:54 ALT 1938 units/L (7-56) H 12/06/18 04:05 90 units/L (35-129) 12/07/18 06:54 < 0.010 ng/mL (0.00-0.029) 11/30/18 20:44 NT-Pro-B Natriuret Pep 4277 pg/mL (0-900) H 11/30/18 16:20 6.6 g/dL (6.3-8.2) 12/07/18 06:54 3.4 g/dL (3.9-5) L 12/07/18 06:54 1.1 % 12/07/18 06:54 Yellow (Yellow) 11/30/18 Unknown Slightly-cloudy (Clear) 11/30/18 Unknown 5.0 (5.0-7.0) 11/30/18 Unknown Ur Specific [place] 1.012 (1.003-1.030) 11/30/18 Unknown <15 mg/dl mg/dL (Negative) 11/30/18 Unknown Neg mg/dL (Negative) 11/30/18 Unknown Neg mg/dL (Negative) 11/30/18 Unknown Neg (Negative) 11/30/18 Unknown Neg (Negative) 11/30/18 Unknown Neg (Negative) 11/30/18 Unknown < 2.0 mg/dL (<2.0) 11/30/18 Unknown Ur Leukocyte Esterase Sm (Negative) 11/30/18 Unknown 14.0 /HPF (0.0-6.0) H 11/30/18 Unknown 1.0 /HPF (0.0-6.0) 11/30/18 Unknown Few /HPF 11/30/18 Unknown Hepatitis A IgM Ab Non-reactive (NonReactive) 12/04/18 14:54 Hep Bs Antigen Non-reactive (Negative) 12/04/18 14:54 Hep B Core IgM Ab Non-reactive (NonReactive) 12/04/18 14:54 Non-reactive (NonReactive) 12/04/18 14:54 Active Medications - Current Medications Current Medications: Generic Name Dose Route Start Last Admin Trade Name Freq PRN Reason Stop Dose Admin Acetaminophen/Hydrocodone Bitart 1 each 12/06/18 23:02 [place] 5/325 PO Q6H PRN Pain, Moderate (4-6) Al Hydrox/Mg Hydrox/Simethicone 30 ml 12/04/18 13:08 Alum-Mag Hydrox-Simeth 716-009-04dq/5ml PO Q4H PRN Indigestion Allopurinol 100 mg 12/01/18 10:00 12/06/18 10:02 Zyloprim PO 100 mg QDAY JANINE Administration Colchicine 0.6 mg 12/01/18 10:00 12/06/18 10:02 Colchicine PO 0.6 mg DAILY JANINE Administration Colchicine 0.6 mg 12/06/18 22:51 Colchicine PO BID PRN Gouty pain Dextrose 50 ml 12/01/18 00:37 12/04/18 23:15 D50w (25gm) Syringe IV 50 ml PRN PRN Administration Hypoglycemia Famotidine 20 mg 12/01/18 10:00 12/06/18 22:32 Pepcid PO 20 mg BID JANINE Administration Sodium Chloride 1,000 mls @ 75 mls/hr 12/04/18 13:00 12/05/18 21:20 Nacl 0.9% 1000 Ml IV Infused DIRECT JANINE Infusion Insulin Human Lispro 0 unit 12/01/18 07:30 12/06/18 22:34 Humalog SUB-Q 4 unit ACHS JANINE Administration Protocol Metoprolol Tartrate 25 mg 12/02/18 14:00 12/06/18 20:31 Lopressor PO 25 mg TID JANINE Administration Ondansetron HCl 4 mg 12/01/18 00:37 12/04/18 06:49 Zofran IV 4 mg Q4H PRN Administration Nausea And Vomiting Sodium Chloride 10 ml 12/01/18 10:00 12/06/18 22:33 Sodium Chloride Flush Syringe 10 Ml IV 10 ml BID JANINE Administration Sodium Chloride 10 ml 12/01/18 00:37 12/05/18 21:21 Sodium Chloride Flush Syringe 10 Ml IV 10 ml PRN PRN Administration LINE FLUSH
[2018-12-07 08:11] LABS: Alanine Aminotransferase 1501 units/L (7-56)
[2018-12-07] MEDS ORDERED: NACL 0.9% 500 ML 500 ML ONE (09:52)
[2018-12-07] MEDS ORDERED: HURRICAINE ONE 20% TOPICAL SPRAY MM (09:52)
--- NOTE | 2018-12-07 09:57 | Anesthesia Consultation ---
Anesthesia Consult and Med Hx Date of service: 12/07/18 - Airway Anesthetic Teeth Evaluation: Poor (multiple missing teeth) ROM Head & Neck: Adequate Mental/Hyoid Distance: Adequate Mallampati Class: Class III Intubation Access Assessment: Possibly Difficult - Pre-Operative Health Status ASA Pre-Surgery Classification: ASA4 Proposed Anesthetic Plan: MAC - Pulmonary Hx Smoking: No (former smoker, quit 10 years ago) Hx Asthma: No COPD: No Hx Pneumonia: No Hx Sleep Apnea: Yes - Cardiovascular System Hx Hypertension: Yes Hx Coronary Artery Disease: No (Non-ischemic dilated cardiomyopathy EF 15-20%) Hx Heart Attack/AMI: No Hx Angina: No Hx Percutaneous Transluminal Coronary Angioplasty (PTCA): No Hx Cardia Arrhythmia: Yes (atrial flutter with RVR) Hx Pacemaker: No Hx Internal Defibrillator: No Hx Valvular Heart Disease: No Hx Heart Murmur: No Hx Peripheral Vascular Disease: No - Central Nervous System Hx Neuromuscular Disorder: No Hx Seizures: No CVA: No Hx Back Pain: No (gout) Hx Psychiatric Problems: No - Gastrointestinal Hx Gastroesophageal Reflux Disease: No - Endocrine Hx End Stage Renal Disease: No Hx Liver Disease: No Hx Non-Insulin Dependent Diabetes: Yes Hx Thyroid Disease: No - Hematic Hx Anemia: No - Other Systems Hx Alcohol Use: No Hx Cancer: No Hx Obesity: Yes (BMI 39.8)
--- NOTE | 2018-12-07 09:58 | Anesthesia Day of Surgery ---
Anesthesia Day of Surgery - Day of Surgery Patient Examined: Yes Patient H&P Reviewed: Yes Patient is NPO: Yes Beta Blockers: Yes Cardiac Clearance: Yes
[2018-12-07] MEDS: SODIUM CHLORIDE FLUSH SYRINGE 10 ML IV SCH ×2 (10:00→21:39)
[2018-12-07] MEDS: LOPRESSOR PO SCH ×3 (10:00→21:37)
[2018-12-07] MEDS: ZYLOPRIM PO SCH (10:00)
[2018-12-07] MEDS: PEPCID PO SCH ×2 (10:00→21:36)
[2018-12-07] MEDS: COLCHICINE PO SCH (10:00)
[2018-12-07] MEDS ORDERED: AMIDATE IV ONE (10:01)
[2018-12-07] MEDS ORDERED: DIPRIVAN 10 MG/ML IV ONE (10:01)
[2018-12-07] MEDS ORDERED: HURRICAINE ONE 20% TOPICAL SPRAY MM NR (10:30)
[2018-12-07] MEDS: LANOXIN IV SCH ×2 (12:00→17:56)
--- NOTE | 2018-12-07 13:10 | Progress Note ---
Assessment and Plan S/p JUSTINE this AM - spontaneous echo contrast seen in the descending aorta concerning for thrombus and thus cardioversion cancelled. Initiate digoxin loading and f/u in AM. The patient has been seen in conjunction with Dr. Bains who agrees with the assessment and plan of care. - Patient Problems (1) Atrial flutter with rapid ventricular response Current Visit: Yes Status: Acute (2) Nonischemic dilated cardiomyopathy Current Visit: Yes Status: Chronic (3) Normal coronary arteries Current Visit: Yes Status: Chronic (4) Diabetes Current Visit: Yes Status: Chronic (5) Obesity Current Visit: Yes Status: Chronic Subjective Date of service: 12/07/18 Principal diagnosis: elevated LFTs Interval history: pt laying flat comfortably in bed, no current complaints. Remains in AFlutter with HR 115s. Objective Last Vital Signs Temp 98.4 F 12/07/18 12:00 Pulse 114 H 12/07/18 11:14 Resp 30 H 12/07/18 11:14 BP 109/70 12/07/18 11:14 Pulse Ox 98 12/07/18 11:14 - Physical Examination General: No Apparent Distress HEENT: Positive: PERRL, Normocephaly, Mucus Membranes Moist Neck: Positive: neck supple, trachea midline Cardiac: Positive: irregularly irregular, S1/S2, Tachycardia Lungs: Positive: Decreased Breath Sounds Neuro: Positive: Grossly Intact Abdomen: Positive: Soft. Negative: Tender Skin: Negative: Rash, Wound Musculoskeletal: No Pain Extremities: Absent: edema - Labs and Meds Cardiac Enzymes 12/07/18 Range/Units 06:54 AST 599 H (5-40) units/L Coagulation 12/07/18 Range/Units 06:54 PT 21.1 H (12.2-14.9) Sec. INR 1.70 H (0.87-1.13) CBC 12/07/18 Range/Units 06:54 WBC 9.2 (4.5-11.0) K/mm3 RBC 4.75 (3.65-5.03) M/mm3 Hgb 12.2 (11.8-15.2) gm/dl Hct 38.6 (35.5-45.6) % Plt Count 178 (140-440) K/mm3 Lymph # 1.8 (1.2-5.4) K/mm3 [place] # 1.0 H (0.0-0.8) K/mm3 Eos # 0.0 (0.0-0.4) K/mm3 Baso # 0.1 (0.0-0.1) K/mm3 Comprehensive Metabolic Panel 12/07/18 Range/Units 06:54 Sodium 138 (137-145) mmol/L Potassium 3.9 (3.6-5.0) mmol/L Chloride 102.9 (98-107) mmol/L Carbon Dioxide 20 L (22-30) mmol/L BUN 14 (9-20) mg/dL Creatinine 0.9 (0.8-1.5) mg/dL Glucose 145 H (75-100) mg/dL Calcium 8.3 L (8.4-10.2) mg/dL AST 599 H (5-40) units/L ALT 1501 H (7-56) units/L Alkaline Phosphatase 90 (35-129) units/L Total Protein 6.6 (6.3-8.2) g/dL Albumin 3.4 L (3.9-5) g/dL - Imaging and Cardiology EKG: image reviewed Echo: report reviewed (11/03/2018 at [facility] showed EF 15-20%, LV severely dilated, LA mod to severely dilated, RV mod dilated, RV systolic function mod reduced, RA severely dilated, mild to mod MR, RVSP 48mmHg.) Cardiac cath: report reviewed ([place] 04/2018: normal coronaries, EF 15%)
[2018-12-07] MEDS: NACL 0.9% 1000 ML 1,000 ML IV SCH (17:56)
--- NOTE | 2018-12-07 17:59 | Event Note ---
Date: 12/07/18 S/p JUSTINE this AM for cardioversion spontaneous echo contrast seen in the descending aorta concerning for thrombus and thus cardioversion cancelled. Cardiology started digoxin loading ,monitor and f/u in AM.
[2018-12-08] MEDS: LANOXIN IV SCH ×2 (00:08→06:04)
[2018-12-08] MEDS: SODIUM CHLORIDE FLUSH SYRINGE 10 ML IV PRN (06:14)
[2018-12-08] MEDS: HumaLOG SUB-Q SCH ×4 (07:30→22:23)
[2018-12-08] MEDS ORDERED: XYLOCAINE MPF 2% ONE (08:19)
[2018-12-08] MEDS ORDERED: AMIDATE IV ONE (08:19)
[2018-12-08] MEDS ORDERED: VERSED ONE (08:20)
[2018-12-08] MEDS ORDERED: DIPRIVAN 10 MG/ML IV ONE (08:24)
[2018-12-08] MEDS ORDERED: XYLOCAINE 2% INFILTRATI ONE (08:35)
[2018-12-08] MEDS: ZYLOPRIM PO SCH (09:32)
[2018-12-08] MEDS: LOPRESSOR PO SCH ×2 (09:32→21:10)
[2018-12-08] MEDS: COLCHICINE PO SCH (09:32)
[2018-12-08] MEDS: ELIQUIS PO SCH ×2 (09:33→21:10)
[2018-12-08] MEDS: BABY ASPIRIN PO SCH (09:33)
[2018-12-08] MEDS: PEPCID PO SCH ×2 (09:33→21:10)
[2018-12-08] MEDS: SODIUM CHLORIDE FLUSH SYRINGE 10 ML IV SCH ×2 (09:34→21:11)
[2018-12-08 09:51] LABS: Albumin 3.5 g/dL (3.9-5); Bilirubin,Direct 0.8 mg/dL (0-0.2)
--- NOTE | 2018-12-08 10:13 | Progress Note ---
Assessment and Plan pt has been of eliquis since 12.04.2018, restart and in discussion with tryon, pt unable to take amio and dig did not slow heart rate, given smoke in descending to proceed with cardioversion in am after restarting elquis. discuss with pt the need and risk and benifits and pt understood. - Patient Problems (1) Atrial flutter with rapid ventricular response Current Visit: Yes Status: Acute (2) Nonischemic dilated cardiomyopathy Current Visit: Yes Status: Chronic (3) Acute HFrEF (heart failure with reduced ejection fraction) Current Visit: No Status: Acute (4) Dilated cardiomyopathy Current Visit: No Status: Chronic (5) Elevated LFTs Current Visit: No Status: Acute Subjective Date of service: 12/08/18 Principal diagnosis: aflutter Interval history: pt is able to ly flat Objective Vital Signs Temp Pulse Pulse Pulse Pulse Resp Resp 12/08/18 08:01 117 H 31 H 12/08/18 08:00 97.8 F 114 H 18 12/08/18 07:01 113 H 21 12/08/18 06:04 114 H 12/08/18 06:01 113 H 20 12/08/18 05:01 115 H 15 12/08/18 04:55 98.7 F 12/08/18 04:01 114 H 17 12/08/18 04:00 98.7 F 114 H 18 12/08/18 03:01 113 H 23 12/08/18 02:01 118 H 17 12/08/18 01:01 113 H 13 12/08/18 00:08 118 H 12/08/18 00:01 117 H 20 12/08/18 00:00 98.1 F 114 H 21 12/07/18 23:01 118 H 26 H 12/07/18 22:01 118 H 21 12/07/18 22:00 116 H 12/07/18 21:37 116 H 12/07/18 21:01 116 H 20 12/07/18 20:05 117 H 17 12/07/18 20:01 120 H 13 12/07/18 20:00 98.3 F 118 H 17 12/07/18 19:01 117 H 22 12/07/18 18:01 134 H 27 H 12/07/18 17:01 117 H 26 H 12/07/18 16:01 116 H 18 12/07/18 16:00 97.9 F 114 H 21 12/07/18 15:01 117 H 29 H 12/07/18 14:01 114 H 27 H 12/07/18 13:22 12/07/18 13:01 115 H 17 12/07/18 12:01 114 H 17 12/07/18 12:00 98.4 F 114 H 21 12/07/18 11:28 12/07/18 11:14 114 H 30 H 12/07/18 10:57 115 H 26 H 12/07/18 10:43 115 H 29 H 12/07/18 10:15 114 H Resp BP BP BP Pulse Ox Pulse Ox Pulse Ox 12/08/18 08:01 122/89 98 12/08/18 08:00 97 12/08/18 07:01 122/89 97 12/08/18 06:04 132/68 12/08/18 06:01 122/89 97 12/08/18 05:01 122/89 96 12/08/18 04:55 12/08/18 04:01 122/89 97 12/08/18 04:00 97 12/08/18 03:01 122/89 99 12/08/18 02:01 122/89 97 12/08/18 01:01 122/89 99 12/08/18 00:08 122/85 12/08/18 00:01 131/84 97 12/08/18 00:00 95 12/07/18 23:01 131/84 92 12/07/18 22:01 131/84 87 12/07/18 22:00 12/07/18 21:37 131/84 12/07/18 21:01 131/84 99 12/07/18 20:05 110/84 97 12/07/18 20:01 110/84 98 12/07/18 20:00 100 12/07/18 19:01 110/84 99 12/07/18 18:01 110/84 98 12/07/18 17:01 110/84 91 12/07/18 16:01 110/84 100 12/07/18 16:00 95 12/07/18 15:01 110/84 96 12/07/18 14:01 110/84 98 12/07/18 13:22 100 05/14/19 13:01 110/84 99 12/07/18 12:01 110/84 99 12/07/18 12:00 95 12/07/18 11:28 99 12/07/18 11:14 109/70 98 12/07/18 10:57 107/79 99 12/07/18 10:43 110/92 100 12/07/18 10:15 33 H 139/63 99 - Physical Examination General: No Apparent Distress HEENT: Positive: PERRL, Normocephaly, Mucus Membranes Moist Neck: Positive: neck supple, trachea midline Cardiac: Positive: Tachycardia Lungs: Positive: clear to auscultation Neuro: Positive: Grossly Intact Abdomen: Positive: Soft. Negative: Tender Skin: Negative: Rash, Wound Musculoskeletal: No Pain Extremities: Absent: edema - Labs and Meds Cardiac Enzymes 12/08/18 Range/Units 09:11 AST 288 H (5-40) units/L Comprehensive Metabolic Panel 12/08/18 Range/Units 09:11 Direct Bilirubin 0.8 H (0-0.2) mg/dL Indirect Bilirubin 0.7 mg/dL AST 288 H (5-40) units/L Alkaline Phosphatase 87 (35-129) units/L Total Protein 6.8 (6.3-8.2) g/dL Albumin 3.5 L (3.9-5) g/dL - Imaging and Cardiology EKG: image reviewed Echo: report reviewed (11/03/2018 at [facility] showed EF 15-20%, LV severely dilated, LA mod to severely dilated, RV mod dilated, RV systolic function mod reduced, RA severely dilated, mild to mod MR, RVSP 48mmHg.) JUSTINE: report reviewed (severe lv dsyfunction, no clot in left atrium or appendage but in descending aorta smoke from poor ef and moderate to severe mr and no pfo or asd and no vegatations. ) Cardiac cath: report reviewed ([place] 04/2018: normal coronaries, EF 15%) - Telemetry EKG Rhythm: Atrial Flutter (in 110's)
--- NOTE | 2018-12-08 10:59 | Progress Note ---
Assessment and Plan Assessment and plan: --A. fib with RVR: Remains rapid ventricular rate Continue anticoagulation, patient is planned for cardioversion tomorrow -Continue reculture medications per cardiology --Transaminitis; acute liver injury / shock liver, drug induced[amiodarone] LFTs trending down, GI following, abdominal ultrasound no acute findings acute hepatitis panel negative --Coagulopathy/due to acute liver Injury PT INR trending down --Dyspepsia; Maalox as needed Check abdominal ultrasound --Acute kidney injury secondary to ATN; Hold diuretics, gentle hydration, avoid nephrotoxins --Atypical chest pain; resolved --Hypertension, stable on current management --Diabetes type 2. Accu-Cheks sliding scale coverage and ADA diet Insulin as needed --Acute on chronic systolic congestive heart failure Ef 15- 20% on echo 10/2018, hold Lasix in view of a RIGOBERTO Gentle hydration cardiology following --Nonischemic cardiomyopathy --Moderate malnutrition and hypoalbuminemia; nutrition supplements Supportive care --Gout; stable on colchine --Dvt prophylaxis; on Eliquis Disposition; follow cardiology recommendations Follow clinically and DC in 1-2 days if stable History Interval history: Review of systems Constitutional: No fevers, no joint pains CVS: No chest pain, no orthopnea, no dyspnea on exertion, no pedal edema GI: No abdominal pain, no diarrhea, no vomiting, no constipation Respiratory: no wheezing, no coughing Hospitalist Physical - Physical exam Narrative exam: General.: Appears well, no distress, nontoxic HEENT: Moist mucous membranes, extraocular muscles intact, no lymphadenopathy Neck: supple Cardiac: S1-S2 heard Lungs: clear to auscultation bilaterally Abdomen: soft , nontender, nondistended, bowel sounds positive Extremities: no edema clubbing or cyanosis Skin: no rash or lesions Neurologic: no gross focal deficits Psych: calm, and cooperative - Constitutional Vitals: Temp Pulse Resp BP Pulse Ox 97.8 F 114 H 18 120/82 92 12/08/18 08:00 12/08/18 10:01 12/08/18 10:01 12/08/18 10:01 12/08/18 10:01 General appearance: Present: no acute distress, well-nourished, obese (morbidly obese) Results - Labs CBC & Chem 7: 12/09/18 08:47 12/09/18 08:47 Labs: Laboratory Last Values WBC 9.2 K/mm3 (4.5-11.0) 12/07/18 06:54 RBC 4.75 M/mm3 (3.65-5.03) 12/07/18 06:54 Hgb 12.2 gm/dl (11.8-15.2) 12/07/18 06:54 Hct 38.6 % (35.5-45.6) 12/07/18 06:54 MCV 81 fl (84-94) L 12/07/18 06:54 MCH 26 pg (28-32) L 12/07/18 06:54 MCHC 32 % (32-34) 12/07/18 06:54 RDW 18.0 % (13.2-15.2) H 12/07/18 06:54 Plt Count 178 K/mm3 (140-440) 12/07/18 06:54 Lymph % (Auto) 19.5 % (13.4-35.0) 12/07/18 06:54 [place] % (Auto) 11.2 % (0.0-7.3) H 12/07/18 06:54 Eos % (Auto) 0.4 % (0.0-4.3) 12/07/18 06:54 Baso % (Auto) 0.6 % (0.0-1.8) 12/07/18 06:54 Lymph # 1.8 K/mm3 (1.2-5.4) 12/07/18 06:54 [place] # 1.0 K/mm3 (0.0-0.8) H 12/07/18 06:54 Eos # 0.0 K/mm3 (0.0-0.4) 12/07/18 06:54 Baso # 0.1 K/mm3 (0.0-0.1) 12/07/18 06:54 Seg Neutrophils % 68.3 % (40.0-70.0) 12/07/18 06:54 Seg Neutrophils # 6.3 K/mm3 (1.8-7.7) 12/07/18 06:54 PT 21.1 Sec. (12.2-14.9) H 12/07/18 06:54 INR 1.70 (0.87-1.13) H 12/07/18 06:54 APTT 31.3 Sec. (24.2-36.6) 11/30/18 16:20 Sodium 138 mmol/L (137-145) 12/07/18 06:54 Potassium 3.9 mmol/L (3.6-5.0) 12/07/18 06:54 Chloride 102.9 mmol/L (98-107) 12/07/18 06:54 Carbon Dioxide 20 mmol/L (22-30) L 12/07/18 06:54 19 mmol/L 12/07/18 06:54 BUN 14 mg/dL (9-20) 12/07/18 06:54 0.9 mg/dL (0.8-1.5) 12/07/18 06:54 Estimated GFR > 60 ml/min 12/07/18 06:54 16 % 12/07/18 06:54 Glucose 145 mg/dL (75-100) H 12/07/18 06:54 POC Glucose 109 (70-105) H 12/08/18 08:14 Calcium 8.3 mg/dL (8.4-10.2) L 12/07/18 06:54 Phosphorus 3.20 mg/dL (2.5-4.5) 12/05/18 05:10 Magnesium 1.70 mg/dL (1.7-2.3) 12/05/18 05:10 1.50 mg/dL (0.1-1.2) H 12/08/18 09:11 0.8 mg/dL (0-0.2) H 12/08/18 09:11 0.7 mg/dL 12/08/18 09:11 AST 288 units/L (5-40) H 12/08/18 09:11 ALT 1050 units/L (7-56) H 12/08/18 09:11 87 units/L (35-129) 12/08/18 09:11 < 0.010 ng/mL (0.00-0.029) 11/30/18 20:44 NT-Pro-B Natriuret Pep 4277 pg/mL (0-900) H 11/30/18 16:20 6.8 g/dL (6.3-8.2) 12/08/18 09:11 3.5 g/dL (3.9-5) L 12/08/18 09:11 1.1 % 12/08/18 09:11 Yellow (Yellow) 11/30/18 Unknown Slightly-cloudy (Clear) 11/30/18 Unknown 5.0 (5.0-7.0) 11/30/18 Unknown Ur Specific [place] 1.012 (1.003-1.030) 11/30/18 Unknown <15 mg/dl mg/dL (Negative) 11/30/18 Unknown Neg mg/dL (Negative) 11/30/18 Unknown Neg mg/dL (Negative) 11/30/18 Unknown Neg (Negative) 11/30/18 Unknown Neg (Negative) 11/30/18 Unknown Neg (Negative) 11/30/18 Unknown < 2.0 mg/dL (<2.0) 11/30/18 Unknown Ur Leukocyte Esterase Sm (Negative) 11/30/18 Unknown 14.0 /HPF (0.0-6.0) H 11/30/18 Unknown 1.0 /HPF (0.0-6.0) 11/30/18 Unknown Few /HPF 11/30/18 Unknown Hepatitis A IgM Ab Non-reactive (NonReactive) 12/04/18 14:54 Hep Bs Antigen Non-reactive (Negative) 12/04/18 14:54 Hep B Core IgM Ab Non-reactive (NonReactive) 12/04/18 14:54 Non-reactive (NonReactive) 12/04/18 14:54 Active Medications - Current Medications Current Medications: Generic Name Dose Route Start Last Admin Trade Name Freq PRN Reason Stop Dose Admin Acetaminophen/Hydrocodone Bitart 1 each 12/06/18 23:02 [place] 5/325 PO Q6H PRN Pain, Moderate (4-6) Al Hydrox/Mg Hydrox/Simethicone 30 ml 12/04/18 13:08 Alum-Mag Hydrox-Simeth 789-711-34fe/5ml PO Q4H PRN Indigestion Allopurinol 100 mg 12/01/18 10:00 12/08/18 09:32 Zyloprim PO 100 mg QDAY JANINE Administration Apixaban 5 mg 12/08/18 10:00 12/08/18 09:33 Eliquis PO 5 mg Q12HR JANINE Administration Protocol Aspirin 81 mg 12/08/18 10:00 12/08/18 09:33 Baby Aspirin PO 81 mg QDAY JANINE Administration Colchicine 0.6 mg 12/01/18 10:00 12/08/18 09:32 Colchicine PO 0.6 mg DAILY JANINE Administration Colchicine 0.6 mg 12/06/18 22:51 Colchicine PO BID PRN Gouty pain Dextrose 50 ml 12/01/18 00:37 12/04/18 23:15 D50w (25gm) Syringe IV 50 ml PRN PRN Administration Hypoglycemia Famotidine 20 mg 12/01/18 10:00 12/08/18 09:33 Pepcid PO 20 mg BID JANINE Administration Sodium Chloride 1,000 mls @ 75 mls/hr 12/04/18 13:00 12/07/18 17:56 Nacl 0.9% 1000 Ml IV 75 mls/hr DIRECT JANINE Administration Insulin Human Lispro 0 unit 12/01/18 07:30 12/08/18 07:30 Humalog SUB-Q Not Given ACHS [facility] Protocol Metoprolol Tartrate 50 mg 12/08/18 10:00 12/08/18 09:32 Lopressor PO 50 mg BID JANINE Administration Ondansetron HCl 4 mg 12/01/18 00:37 12/04/18 06:49 Zofran IV 4 mg Q4H PRN Administration Nausea And Vomiting Sodium Chloride 10 ml 12/01/18 10:00 12/08/18 09:34 Sodium Chloride Flush Syringe 10 Ml IV 10 ml BID JANINE Administration Sodium Chloride 10 ml 12/01/18 00:37 12/08/18 06:14 Sodium Chloride Flush Syringe 10 Ml IV 10 ml PRN PRN Administration LINE FLUSH Nutrition/Malnutrition Assess - Dietary Evaluation Nutrition/Malnutrition Findings: Nutrition Notes Start: 12/07/18 14:46 Freq: Status: Active Protocol: Document 12/08/18 10:48 LP (Rec: 12/08/18 10:48 LP [id number]) Nutrition Notes Initial or Follow up Brief Note Subjective/Other Information Not enough time to gather intakes Nutrition Intervention Follow-Up By: 12/10/18 Additional Comments Follow for intakes
[2018-12-08] MEDS: LASIX PO SCH ×2 (14:26→23:03)
[2018-12-08] MEDS: ZOFRAN IV PRN (19:56)
[2018-12-09] MEDS ORDERED: DIPRIVAN 10 MG/ML IV ONE (07:12)
[2018-12-09] MEDS ORDERED: XYLOCAINE MPF 2% ONE (07:13)
[2018-12-09] MEDS: HumaLOG SUB-Q SCH ×2 (08:00→12:56)
[2018-12-09] MEDS ORDERED: NACL 0.9% 500 ML 500 ML ONE (08:29)
[2018-12-09 08:56] LABS: Basophils # (Auto) 0.1 K/mm3 (0.0-0.1); Basophils % (Auto) 0.7 % (0.0-1.8); Eosinophils # (Auto) 0.2 K/mm3 (0.0-0.4); Eosinophils % (Auto) 2.8 % (0.0-4.3); Hematocrit 39.4 % (35.5-45.6); Hemoglobin 12.6 gm/dl (11.8-15.2); Lymphocytes # (Auto) 1.8 K/mm3 (1.2-5.4); Mean Corpuscular HGB Conc 32 % (32-34); Mean Corpuscular Volume 81 fl (84-94); Monocytes # (Auto) 0.8 K/mm3 (0.0-0.8); Monocytes % (Auto) 10.9 % (0.0-7.3); Platelet Count 227 K/mm3 (140-440); Red Blood Count 4.88 M/mm3 (3.65-5.03); Red Cell Distribution Width 17.7 % (13.2-15.2)
[2018-12-09 09:26] LABS: Albumin 3.3 g/dL (3.9-5); BUN/Creatinine Ratio 12; Blood Urea Nitrogen 11 mg/dL (9-20); Calcium 8.8 mg/dL (8.4-10.2); Hemolysis Index 3
--- NOTE | 2018-12-09 09:36 | Progress Note ---
Assessment and Plan Patient has successful cardioversion will continue Lopressor 50 mg twice a day hold off statin medication view of improving LFTs reassess as an outpatient continue oral anticoagulation with aspirin and elquis 5mg bid and patient will be on Lasix 20 mg twice a day follow-up in cardiology clinic next week hold off DAMIEN inhibitor in view of low blood pressure. Add Aldactone 25 mg once a day - Patient Problems (1) Atrial flutter with rapid ventricular response Current Visit: Yes Status: Acute (2) Nonischemic dilated cardiomyopathy Current Visit: Yes Status: Chronic (3) Acute HFrEF (heart failure with reduced ejection fraction) Current Visit: No Status: Acute (4) Dilated cardiomyopathy Current Visit: No Status: Chronic (5) Elevated LFTs Current Visit: No Status: Acute Subjective Date of service: 12/09/18 Principal diagnosis: aflutter Interval history: pt able to ly flat Objective Vital Signs Temp Pulse Pulse Resp BP Pulse Ox 12/09/18 08:00 97.8 F 12/09/18 06:01 96 H 17 127/82 92 12/09/18 05:01 104 H 20 127/82 96 12/09/18 04:01 96 H 20 127/82 94 12/09/18 04:00 97.5 F L 99 H 18 98 12/09/18 03:10 94 H 12/09/18 03:01 94 H 23 127/82 92 12/09/18 02:01 92 H 12 127/82 98 12/09/18 01:01 96 H 14 131/86 97 12/09/18 00:01 94 H 26 H 131/86 97 12/09/18 00:00 97.6 F 95 H 20 98 12/08/18 23:10 90 12/08/18 23:09 102 H 22 131/86 96 12/08/18 23:01 103 H 28 H 131/86 95 12/08/18 22:01 84 17 131/86 99 12/08/18 22:00 103 H 12/08/18 21:10 88 131/86 12/08/18 21:01 101 H 21 131/86 97 12/08/18 20:01 117 H 20 98 12/08/18 20:00 98.2 F 12/08/18 19:39 94 H 20 98 12/08/18 19:01 102 H 21 100 12/08/18 18:01 97 H 16 97 12/08/18 17:01 95 H 20 98 12/08/18 16:01 87 22 120/82 98 12/08/18 16:00 97.9 F 12/08/18 15:01 89 15 120/82 97 12/08/18 14:01 83 19 120/82 99 12/08/18 13:01 82 23 120/82 96 12/08/18 12:01 69 17 120/82 96 12/08/18 12:00 97.6 F 114 H 18 97 12/08/18 11:01 108 H 18 120/82 95 12/08/18 10:01 114 H 18 120/82 92 12/08/18 10:00 112 H - Physical Examination General: No Apparent Distress HEENT: Positive: PERRL, Normocephaly, Mucus Membranes Moist Neck: Positive: neck supple, trachea midline Cardiac: Positive: Reg Rate and Rhythm Lungs: Positive: clear to auscultation Neuro: Positive: Grossly Intact Abdomen: Positive: Soft. Negative: Tender Skin: Negative: Rash, Wound Musculoskeletal: No Pain Extremities: Absent: edema - Labs and Meds Cardiac Enzymes 12/08/18 12/09/18 Range/Units 09:11 08:47 AST 288 H 138 H (5-40) units/L CBC 12/09/18 Range/Units 08:47 WBC 7.6 (4.5-11.0) K/mm3 RBC 4.88 (3.65-5.03) M/mm3 Hgb 12.6 (11.8-15.2) gm/dl Hct 39.4 (35.5-45.6) % Plt Count 227 (140-440) K/mm3 Lymph # 1.8 (1.2-5.4) K/mm3 [place] # 0.8 (0.0-0.8) K/mm3 Eos # 0.2 (0.0-0.4) K/mm3 Baso # 0.1 (0.0-0.1) K/mm3 Comprehensive Metabolic Panel 12/08/18 12/09/18 Range/Units 09:11 08:47 Sodium 142 (137-145) mmol/L Potassium 3.9 (3.6-5.0) mmol/L Chloride 105.3 (98-107) mmol/L Carbon Dioxide 23 (22-30) mmol/L BUN 11 (9-20) mg/dL Creatinine 0.9 (0.8-1.5) mg/dL Glucose 121 H (75-100) mg/dL Calcium 8.8 (8.4-10.2) mg/dL Direct Bilirubin 0.8 H (0-0.2) mg/dL Indirect Bilirubin 0.7 mg/dL AST 288 H 138 H (5-40) units/L ALT 1050 H (7-56) units/L Alkaline Phosphatase 87 81 (35-129) units/L Total Protein 6.8 6.7 (6.3-8.2) g/dL Albumin 3.5 L 3.3 L (3.9-5) g/dL - Imaging and Cardiology EKG: image reviewed Echo: report reviewed (11/03/2018 at [facility] showed EF 15-20%, LV severely dilated, LA mod to severely dilated, RV mod dilated, RV systolic function mod reduced, RA severely dilated, mild to mod MR, RVSP 48mmHg.) Cardiac cath: report reviewed ([place] 04/2018: normal coronaries, EF 15%) - Telemetry EKG Rhythm: Atrial Flutter (converted to nsr after cardioversion)
[2018-12-09 09:39] LABS: Alanine Aminotransferase 733 units/L (7-56)
--- NOTE | 2018-12-09 09:57 | Procedure Note ---
CARDIOVERSION REPORT CLINICAL INFORMATION: A 57-year-old gentleman with morbid obesity, has a nonischemic cardiomyopathy. He is in atrial flutter, failed medical therapy, had a JUSTINE that showed no clot in left atrial or left atrial appendage. Sluggish flow in the aorta. The patient is confirmed to be on Eliquis twice a day, and had with anesthesia, was sedated, was successfully cardioverted with single shock biphasic 360 joule from atrial flutter to normal sinus rhythm in the 70s and the patient tolerated the procedure well. Discussed this with the patient and the patient's family in detail. JOB# [id number] GENNY/SARAVANAN
[2018-12-09] MEDS ORDERED: ALDACTONE PO SCH (10:00)
[2018-12-09] MEDS: BABY ASPIRIN PO SCH (11:04)
[2018-12-09] MEDS: COLCHICINE PO SCH (11:05)
[2018-12-09] MEDS: LOPRESSOR PO SCH (11:05)
[2018-12-09] MEDS: LASIX PO SCH (11:05)
[2018-12-09] MEDS: ELIQUIS PO SCH (11:05)
[2018-12-09] MEDS: PEPCID PO SCH (11:11)
[2018-12-09] MEDS: SODIUM CHLORIDE FLUSH SYRINGE 10 ML IV SCH (11:12)
[2018-12-09] MEDS: ZYLOPRIM PO SCH (11:12)
[2018-12-09 12:15] VITALS: BP 112/84
--- NOTE | 2018-12-09 12:18 | Discharge Summary ---
Providers - Providers Date of Admission: 11/30/18 22:13 Attending physician: MELANI MCWILLIAMS MD 12/01/18 00:37 Consult to Physician [CONS] Routine Comment: Dr. Hernandez spoke with Dr. Gabriela Richmond @ [id number] Consulting Provider: DAVID FOREMAN Physician Instructions: Reason For Exam: afib 12/04/18 14:49 Consult to Physician [CONS] Routine Comment: Consulting Provider: CADE HOGUE Physician Instructions: Reason For Exam: acute severe Transaminitis/ Hospitalization Condition: Stable Hospital course: 57-year-old man who presented with chest pain shortness of breath and palpitations Patient was found to have A. fib and RVR, he was continued on anticoagulation, rate cotnrol medications where optimized by cardiology, he then went on to have cardioversion, rate was controlled at time of discharge -He had transaminitis which is most likely due to shock liver and amiodarone toxicity amiodarone was discontinued, patient was diuresed, transaminitis improved -He was diuresed for heart failure -He had acute kidney injury which is likely due to ATN of vasomotor nephropathy, he received gentle hydration and judicious use of diuretics, DAMIEN inhibitor was held at the time of discharge -He was continued on meds for his chronic conditions Diagnoses A. 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 fib with RVR Type 2 diabetes Gout acute kidney injury due to vasomotor nephropathy and ATn Hypertension Moderate malnutrition Disposition: DC-01 TO HOME OR SELFCARE Time spent for discharge: 33 mins Core Measure Documentation - Palliative Care Palliative Care/ Comfort Measures: Not Applicable - Core Measures Any of the following diagnoses?: none Exam - Constitutional Vitals: Temp Pulse Resp BP Pulse Ox 97.8 F 89 17 138/93 92 12/09/18 08:00 12/09/18 11:05 12/09/18 06:01 12/09/18 11:05 12/09/18 06:01 General appearance: Present: no acute distress, well-nourished - EENT Eyes: Present: PERRL ENT: hearing intact, clear oral mucosa - Neck Neck: Present: supple, normal ROM - Respiratory Respiratory effort: normal Respiratory: bilateral: CTA - Cardiovascular Heart Sounds: Present: S1 & S2. Absent: rub, click - Extremities Extremities: pulses symmetrical, No edema Peripheral Pulses: within normal limits - Abdominal General gastrointestinal: Present: soft, non-tender, non-distended, normal bowel sounds Male genitourinary: Present: normal - Integumentary Integumentary: Present: clear, warm, dry - Musculoskeletal Musculoskeletal: gait normal, strength equal bilaterally - Psychiatric Psychiatric: appropriate mood/affect, intact judgment & insight - Neurologic Neurologic: CNII-XII intact, moves all extremities Plan Follow up with: [facility] [Other] - 3-5 Days FRED RICHMOND MD [Staff Physician] - 7 Days ([facility], 12/17/2018 @ 2:30) Prescriptions: Spironolactone [Aldactone] 25 mg PO QDAY #30 tablet Aspirin EC [Aspirin Enteric Coated TAB] 81 mg PO QDAY #30 tablet. Apixaban [Eliquis] 5 mg PO Q12HR #60 tablet Furosemide [Lasix TAB] 20 mg PO BID #60 tablet Metoprolol [Lopressor TAB] 50 mg PO BID #60 tablet
== END 2018-12-09 13:50 | disposition home or self-care (01) | DRG 308 ==
LOC: ED 15:06 → CC1 22:13 → IMCU 12-01 14:54
PROVIDERS: ADMIT Internal Medicine; ATTEND Internal Medicine
PROC: 5A2204Z Restoration of Cardiac Rhythm, Single (ICD-10-PCS; principal; 2018-12-09)
DX: I48.91 Unspecified atrial fibrillation (principal); N17.0 Acute kidney failure with tubular necrosis; I50.23 Acute on chronic systolic (congestive) heart failure; K72.00 Acute and subacute hepatic failure without coma; E44.0 Moderate protein-calorie malnutrition; T88.6XXA Anaphylactic reaction due to adverse effect of correct drug or medicament properly administered, initial encounter; D68.59 Other primary thrombophilia; I48.92 Unspecified atrial flutter; I42.0 Dilated cardiomyopathy; R10.13 Epigastric pain; M10.9 Gout, unspecified; I25.10 Atherosclerotic heart disease of native coronary artery without angina pectoris; I11.0 Hypertensive heart disease with heart failure; E66.01 Morbid (severe) obesity due to excess calories; E11.9 Type 2 diabetes mellitus without complications; T46.2X5A Adverse effect of other antidysrhythmic drugs, initial encounter; Y84.8 Other medical procedures as the cause of abnormal reaction of the patient, or of later complication, without mention of misadventure at the time of the procedure; Y92.238 Other place in hospital as the place of occurrence of the external cause; Z87.891 Personal history of nicotine dependence; Z82.49 Family history of ischemic heart disease and other diseases of the circulatory system; Z79.01 Long term (current) use of anticoagulants; Z79.899 Other long term (current) drug therapy; Z68.39 Body mass index [BMI] 39.0-39.9, adult; Z79.84 Long term (current) use of oral hypoglycemic drugs
CPT/HCPCS: 36415; 71046; 76700; 80048; 80053; 80074; 80076; 81001; 82962; 83735; 83880; 84100; 84132; 84484; 85025; 85610; 85730; 93005; 93010; 93312; 93320; 93325; 94760; 96365; 96375; 96376; G0378; J0282; J1160; J1815; J2250; J2405; J2704; J7030; J7040; J7060

== ENCOUNTER 2019-02-03 06:44 | Emergency (ER) | payer OTHER ==
[2019-02-03] MEDS ORDERED: ASPIRIN PO ONE (07:09)
[2019-02-03 07:27] LABS: Basophils # (Auto) 0.1 K/mm3 (0.0-0.1); Basophils % (Auto) 0.8 % (0.0-1.8); Eosinophils # (Auto) 0.2 K/mm3 (0.0-0.4); Eosinophils % (Auto) 1.7 % (0.0-4.3); Hematocrit 40.4 % (35.5-45.6); Lymphocytes # (Auto) 2.7 K/mm3 (1.2-5.4); Lymphocytes % (Auto) 29.2 % (13.4-35.0); Mean Corpuscular HGB Conc 32 % (32-34); Mean Corpuscular Volume 78 fl (84-94); Monocytes # (Auto) 0.7 K/mm3 (0.0-0.8); Monocytes % (Auto) 7.4 % (0.0-7.3); Platelet Count 273 K/mm3 (140-440); Red Cell Distribution Width 17.1 % (13.2-15.2)
--- NOTE | 2019-02-03 07:36 | XRay Report ---
CHEST 1 VIEW INDICATION: Chest Pain. COMPARISON: 2 view chest report dated 11/30/2018 FINDINGS: Support devices: None. Heart: Mild cardiomegaly. The mediastinal contour is within normal limits otherwise. Lungs/Pleura: Mild central pulmonary venous congestion is identified. The lungs are clear. No pleural effusion or pneumothorax. Normal bony structures. Additional findings: None. IMPRESSION: Mild cardiomegaly and central pulmonary venous congestion but no CHF. Signer Name: Regan Pleitez Jr, MD Signed: 02/03/2019 7:31 AM Workstation Name: [id number]
--- NOTE | 2019-02-03 07:47 | Emergency Department Report ---
ED Shortness of Breath HPI - General Chief Complaint: Dyspnea/Respdistress Stated Complaint: DYSPNEA, CHEST PAIN Time Seen by Provider: 02/03/19 07:29 Source: patient Mode of arrival: Wheelchair Limitations: No Limitations - History of Present Illness Initial Comments: 58-year-old male with a past medical history of obesity, gout, CHF, diabetes, A. fib with RVR, and hypertension presents to the hospital with complaint of shortness of breath 3 days. Patient's sister symptoms are worse when lying supine he has been unable to sleep in the last 3 days orthopnea/PND. He has lower extremity edema is chronic. He had an episode of sharp right-sided chest pain that has since resolved. He denies nausea, vomiting, diaphoresis. He state he has 6 medications but he is out of 3 of his meds. He is taking Asa 81 mg, Lasix, and Eliquis. Patient arrived via EMS and received aspirin 324 mg prior to arrival - Related Data Previous Rx's Medication Instructions Recorded Last Taken Type Colchicine 0.6 mg PO DAILY #14 capsule 09/29/17 Unknown Rx Allopurinol [Zyloprim] 100 mg PO QDAY #30 tablet 02/03/19 Unknown Rx Apixaban [Eliquis] 5 mg PO Q12HR #60 tablet 02/03/19 Unknown Rx Aspirin EC 81 mg PO QDAY #30 tablet. 02/03/19 Unknown Rx Famotidine [Pepcid] 20 mg PO BID #60 tablet 02/03/19 Unknown Rx Furosemide [Lasix TAB] 20 mg PO BID #60 tablet 02/03/19 Unknown Rx Metoprolol [Lopressor TAB] 50 mg PO BID #60 tablet 02/03/19 Unknown Rx Spironolactone [Aldactone] 25 mg PO QDAY #30 tablet 02/03/19 Unknown Rx Allergies Allergy/AdvReac Type Severity Reaction Status Date / Time No Known Allergies Allergy Verified 11/30/18 15:13 ED Review of Systems ROS: Stated complaint: DYSPNEA, CHEST PAIN Other details as noted in HPI Comment: All other systems reviewed and negative ED Past Medical Hx - Past Medical History Previous Medical History?: Yes Hx Hypertension: Yes Hx Heart Attack/AMI: No Hx Congestive Heart Failure: Yes Hx Diabetes: Yes Hx Deep Vein Thrombosis: No Hx Liver Disease: No Hx Arthritis: Yes (gout) Hx Headaches / Migraines: Yes Hx Seizures: No Hx Asthma: No Hx COPD: No Hx Dementia: No Hx HIV: No Additional medical history: gout. OBESITY - Surgical History Hx Coronary Stent: No Hx Pacemaker: No Hx Internal Defibrillator: No - Social History Smoking Status: Never Smoker Substance Use Type: None - Medications Home Medications: Home Medications Medication Instructions Recorded Confirmed Last Taken Type Colchicine 0.6 mg PO DAILY #14 capsule 09/29/17 12/01/18 Unknown Rx Allopurinol [Zyloprim] 100 mg PO QDAY #30 tablet 02/03/19 Unknown Rx Apixaban [Eliquis] 5 mg PO Q12HR #60 tablet 02/03/19 Unknown Rx Aspirin EC 81 mg PO QDAY #30 tablet.dr 02/03/19 Unknown Rx Famotidine [Pepcid] 20 mg PO BID #60 tablet 02/03/19 Unknown Rx Furosemide [Lasix TAB] 20 mg PO BID #60 tablet 02/03/19 Unknown Rx Metoprolol [Lopressor TAB] 50 mg PO BID #60 tablet 02/03/19 Unknown Rx Spironolactone [Aldactone] 25 mg PO QDAY #30 tablet 02/03/19 Unknown Rx ED Physical Exam - General Limitations: No Limitations - Other Other exam information: General: No limitations, patient is alert in no acute distress Head exam: Atraumatic, normocephalic Eyes exam: Normal appearance ENT: Moist mucous membrane Neck exam: Normal inspection, full range of motion, no meningismus nontender Respiratory exam: Clear to auscultation bilateral, no wheezes, rales, crackles Cardiovascular: Mild tachycardia regular rhythm Abdomen: Soft, nondistended, and nontender, with normal bowel sounds, no rebound, or guarding Extremity: Full range of motion normal inspection no deformity, no leg asymmetry, trace lower extremity edema, tenderness Back: Normal Inspection, full range of motion, no tenderness Neurologic: Alert, oriented x3, cranial nerves intact, no motor or sensory deficit Psychiatric: normal affect, normal mood Skin: Warm, dry, intact ED Course Vital Signs 02/03/19 02/03/19 02/03/19 07:00 07:28 07:31 Temperature 97.7 F Pulse Rate 100 H 107 H 104 H Respiratory 24 23 22 Rate Blood Pressure 127/92 137/93 Blood Pressure [Right] O2 Sat by Pulse 96 Oximetry 07/11/19 07/11/19 07/11/19 07:34 09:45 10:44 Temperature 98.2 F Pulse Rate 98 H 100 H Respiratory 23 18 Rate Blood Pressure 113/78 Blood Pressure 115/81 [Right] O2 Sat by Pulse 100 Oximetry ED Medical Decision Making - Lab Data Result diagrams: 02/03/19 07:14 02/03/19 07:14 Lab Results 02/03/19 02/03/19 Range/Units 07:14 07:14 WBC 9.3 (4.5-11.0) K/mm3 RBC 5.20 H (3.65-5.03) M/mm3 Hgb 13.0 (11.8-15.2) gm/dl Hct 40.4 (35.5-45.6) % MCV 78 L (84-94) fl MCH 25 L (28-32) pg MCHC 32 (32-34) % RDW 17.1 H (13.2-15.2) % Plt Count 273 (140-440) K/mm3 Lymph % (Auto) 29.2 (13.4-35.0) % [place] % (Auto) 7.4 H (0.0-7.3) % Eos % (Auto) 1.7 (0.0-4.3) % Baso % (Auto) 0.8 (0.0-1.8) % Lymph # 2.7 (1.2-5.4) K/mm3 [place] # 0.7 (0.0-0.8) K/mm3 Eos # 0.2 (0.0-0.4) K/mm3 Baso # 0.1 (0.0-0.1) K/mm3 Seg Neutrophils % 60.9 (40.0-70.0) % Seg Neutrophils # 5.7 (1.8-7.7) K/mm3 Sodium 138 (137-145) mmol/L Potassium 4.9 (3.6-5.0) mmol/L Chloride 102.1 (98-107) mmol/L Carbon Dioxide 24 (22-30) mmol/L Anion Gap 17 mmol/L BUN 13 (9-20) mg/dL Creatinine 1.0 (0.8-1.5) mg/dL Estimated GFR > 60 ml/min BUN/Creatinine Ratio 13 % Glucose 190 H (75-100) mg/dL Calcium 9.6 (8.4-10.2) mg/dL Troponin T < 0.010 (0.00-0.029) ng/mL - EKG Data -: EKG Interpreted by Me EKG shows normal: sinus rhythm, axis (qrs 37), QRS complexes (qrsd 107), ST-T waves (no stemi) Rate: tachycardia (101) - EKG Data When compared to previous EKG there are: no significant change - Radiology Data Radiology results: report reviewed CHEST 1 VIEW INDICATION: Chest Pain. COMPARISON: 2 view chest report dated 11/30/2018 FINDINGS: Support devices: None. Heart: Mild cardiomegaly. The mediastinal contour is within normal limits otherwise. Lungs/Pleura: Mild central pulmonary venous congestion is identified. The lungs are clear. No pleural effusion or pneumothorax. Normal bony structures. Additional findings: None. IMPRESSION: Mild cardiomegaly and central pulmonary venous congestion but no CHF. - Medical Decision Making Patient is on lisinopril and metoprolol. He is requesting a refill on his medication because he is running low. He is also requesting assistance with affording his Eliquis. Case management saw the pt. The patient and provided paperwork to fill out to obtain Eliquis at a discounted roman through a PCP. He was also given a good rx card and an eliquis discount 30 day supply coupon Patient had 1500 mL urine output after Lasix 60 mg IV. Patient offered admission for shortness of breath but states he is feeling better. Therefore, he'll be discharged with a refill his medication. He was given his metoprolol dose prior to dc - Differential Diagnosis CHF, PE, ME, unstable angina, COPD, pneumonia Critical Care Time: No Critical care attestation.: If time is entered above; I have spent that time in minutes in the direct care of this critically ill patient, excluding procedure time. ED Disposition Clinical Impression: Noncompliance with medication regimen, Medication refill, CHF exacerbation Disposition: DC-01 TO HOME OR SELFCARE Is pt being admited?: No Does the pt Need Aspirin: No Condition: Stable Instructions: Heart Failure (ED) Additional Instructions: Take the medication as prescribed. Follow up with your doctor or the clinic/doctor provided. Return if symptoms worsen as indicated by your discharge instructions Prescriptions: Spironolactone [Aldactone] 25 mg PO QDAY #30 tablet Aspirin EC 81 mg PO QDAY #30 tablet. Apixaban [Eliquis] 5 mg PO Q12HR #60 tablet Furosemide [Lasix TAB] 20 mg PO BID #60 tablet Metoprolol [Lopressor TAB] 50 mg PO BID #60 tablet Famotidine [Pepcid] 20 mg PO BID #60 tablet Allopurinol [Zyloprim] 100 mg PO QDAY #30 tablet Referrals: DEVANG TERANALVA MD LEIGHANN [Primary Care Provider] - 3-5 Days ITZ HAYNES DO [Staff Physician] - 3-5 Days (primary care doctor ) Time of Disposition: 10:07
[2019-02-03 07:48] LABS: BUN/Creatinine Ratio 13; Blood Urea Nitrogen 13 mg/dL (9-20); Calcium 9.6 mg/dL (8.4-10.2); Hemolysis Index 9
[2019-02-03] MEDS ORDERED: LASIX IV ONE (08:04)
[2019-02-03] MEDS ORDERED: LOPRESSOR PO ONE (09:54)
[2019-02-03 10:47] VITALS: BP 113/78
== END 2019-02-03 11:00 | disposition home or self-care (01) ==
LOC: ED 06:44
DX: I11.0 Hypertensive heart disease with heart failure (principal); I50.9 Heart failure, unspecified; E11.9 Type 2 diabetes mellitus without complications; E66.9 Obesity, unspecified; Z76.0 Encounter for issue of repeat prescription; Z91.14 Patient's other noncompliance with medication regimen
CPT/HCPCS: 36415; 71045; 80048; 84484; 85025; 93005; 93010; 96374; 99284; J1940

== ENCOUNTER 2019-02-14 04:59 | Inpatient (IN) | payer OTHER ==
[2019-02-14] MEDS ORDERED: PERCOCET 5/325 ONE (05:36)
[2019-02-14] MEDS ORDERED: ZOFRAN ONE (05:36)
[2019-02-14] MEDS ORDERED: PERCOCET 5/325 PO ONE (05:40)
[2019-02-14] MEDS ORDERED: ZOFRAN IM ONE (05:40)
[2019-02-14 05:54] LABS: INR 1.54 (0.87-1.13)
[2019-02-14 05:59] LABS: Hematocrit 40.7 % (35.5-45.6); Hemoglobin 13.1 gm/dl (11.8-15.2); Mean Corpuscular HGB Conc 32 % (32-34); Mean Corpuscular Volume 77 fl (84-94); Platelet Count 337 K/mm3 (140-440); Red Blood Count 5.29 M/mm3 (3.65-5.03); Red Cell Distribution Width 19.1 % (13.2-15.2)
--- NOTE | 2019-02-14 06:00 | XRay Report ---
CHEST 1 VIEW 02/14/2019 5:38 AM INDICATION / CLINICAL INFORMATION: Chest pain. Nausea with vomiting. COMPARISON: None available. FINDINGS: SUPPORT DEVICES: None. HEART / MEDIASTINUM: Stable cardiomegaly. LUNGS / PLEURA: No significant pulmonary or pleural abnormality. No pneumothorax. ADDITIONAL FINDINGS: No significant additional findings. IMPRESSION: Stable cardiomegaly. No acute findings. Signer Name: Alberto Sanchez MD Signed: 02/14/2019 5:56 AM Workstation Name: [id number]
--- NOTE | 2019-02-14 06:12 | Emergency Department Report ---
ED Chest Pain HPI - General Chief Complaint: Chest Pain Stated Complaint: CHEST PAIN Time Seen by Provider: 02/14/19 06:08 Source: EMS Mode of arrival: Stretcher Limitations: No Limitations - History of Present Illness Initial Comments: This is a 58-year-old man that presents with up apparent extremely poor hygiene. He states he has been running out of his medication and took his last Eliquis Tiffani yesterday. He complains of shortness of breath. He complains of chest pain back pain and left leg pain. He states he's never been diagnosed with the JUSTINE. He presents with a sinus rhythm. He is not in distress at the time of my encounter. He does not complain of active pain at this time. 11/2018 Discharge Summary Diagnoses A. 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 fib with RVR Type 2 diabetes Gout acute kidney injury due to vasomotor nephropathy and ATn Hypertension Moderate malnutrition Disposition: [id number]-01 TO HOME OR SELFCARE Time spent for discharge: 33 mins Complaint: chest pain -: hour(s) Onset: during rest Pain Location: substernal Pain Radiation: back Severity: moderate Quality: aching Improves With: nothing Worsens With: nothing re: other (some sweating) Other Symptoms: cough (nonproductive). denies: fever, syncope, rash Treatments Prior to Arrival: none Aspirin use within the Past 7 Days: (0) No - Related Data Previous Rx's Medication Instructions Recorded Last Taken Type Colchicine 0.6 mg PO DAILY #14 capsule 09/29/17 Unknown Rx Allopurinol [Zyloprim] 100 mg PO QDAY #30 tablet 02/03/19 Unknown Rx Apixaban [Eliquis] 5 mg PO Q12HR #60 tablet 02/03/19 Unknown Rx Aspirin EC 81 mg PO QDAY #30 tablet. 02/03/19 Unknown Rx Famotidine [Pepcid] 20 mg PO BID #60 tablet 02/03/19 Unknown Rx Furosemide [Lasix TAB] 20 mg PO BID #60 tablet 02/03/19 Unknown Rx Metoprolol [Lopressor TAB] 50 mg PO BID #60 tablet 02/03/19 Unknown Rx Spironolactone [Aldactone] 25 mg PO QDAY #30 tablet 02/03/19 Unknown Rx Allergies Allergy/AdvReac Type Severity Reaction Status Date / Time No Known Allergies Allergy Verified 11/30/18 15:13 Heart Score - HEART Score History: Moderately suspicious EKG: Non-specific Age: 45-65 Risk factors: > 3 risk factors or hx of atherosclerotic disease Troponin: < normal limit HEART Score: 5 - Critical Actions Critical Actions: 4-6 pts:12-16.6% risk of adverse cardiac event. Should be admitted ED Review of Systems ROS: Stated complaint: CHEST PAIN Other details as noted in HPI Constitutional: denies: chills, fever Eyes: denies: eye pain, eye discharge, vision change ENT: denies: ear pain, throat pain Respiratory: shortness of breath. denies: cough, wheezing Cardiovascular: chest pain. denies: palpitations Endocrine: no symptoms reported Gastrointestinal: denies: abdominal pain, nausea, diarrhea Genitourinary: denies: urgency, dysuria Musculoskeletal: other (left leg pain entire leg). denies: back pain, joint swelling, arthralgia Skin: denies: rash, lesions Neurological: denies: headache, weakness, paresthesias Psychiatric: denies: anxiety, depression Hematological/Lymphatic: denies: easy bleeding, easy bruising ED Past Medical Hx - Past Medical History Previous Medical History?: Yes Hx Hypertension: Yes Hx Heart Attack/AMI: No Hx Congestive Heart Failure: Yes Hx Diabetes: Yes Hx Deep Vein Thrombosis: No Hx Liver Disease: No Hx Arthritis: Yes (gout) Hx Headaches / Migraines: Yes Hx Seizures: No Hx Asthma: No Hx COPD: No Hx Dementia: No Hx HIV: No Additional medical history: AFib gout back and left leg pain. OBESITY - Surgical History Past Surgical History?: Yes Hx Coronary Stent: No Hx Pacemaker: No Hx Internal Defibrillator: No - Social History Smoking Status: Current Some Day Smoker - Medications Home Medications: Home Medications Medication Instructions Recorded Confirmed Last Taken Type Colchicine 0.6 mg PO DAILY #14 capsule 09/29/17 12/01/18 Unknown Rx Allopurinol [Zyloprim] 100 mg PO QDAY #30 tablet 02/03/19 Unknown Rx Apixaban [Eliquis] 5 mg PO Q12HR #60 tablet 02/03/19 Unknown Rx Aspirin EC 81 mg PO QDAY #30 tablet. 02/03/19 Unknown Rx Famotidine [Pepcid] 20 mg PO BID #60 tablet 02/03/19 Unknown Rx Furosemide [Lasix TAB] 20 mg PO BID #60 tablet 02/03/19 Unknown Rx Metoprolol [Lopressor TAB] 50 mg PO BID #60 tablet 02/03/19 Unknown Rx Spironolactone [Aldactone] 25 mg PO QDAY #30 tablet 02/03/19 Unknown Rx ED Physical Exam - General Limitations: No Limitations, Physical Limitation General appearance: alert, in no apparent distress - Head Head exam: Present: atraumatic, normocephalic - Eye Eye exam: Present: normal appearance. Absent: scleral icterus - ENT ENT exam: Present: mucous membranes moist - Neck Neck exam: Present: normal inspection - Respiratory Respiratory exam: Present: normal lung sounds bilaterally. Absent: respiratory distress - Cardiovascular Cardiovascular Exam: Present: regular rate, normal rhythm. Absent: systolic murmur, diastolic murmur, rubs, gallop - GI/Abdominal GI/Abdominal exam: Present: soft, normal bowel sounds. Absent: distended, tenderness, guarding, rebound - Rectal Rectal exam: Present: deferred - Extremities Exam Extremities exam: Present: normal inspection - Back Exam Back exam: Present: normal inspection - Neurological Exam Neurological exam: Present: alert, oriented X3, CN II-XII intact. Absent: motor sensory deficit - Psychiatric Psychiatric exam: Present: normal affect, normal mood - Skin Skin exam: Present: warm, dry, intact, normal color. Absent: rash ED Course Vital Signs 02/14/19 05:06 Temperature 98.4 F Pulse Rate 87 Respiratory 22 Rate Blood Pressure 107/97 O2 Sat by Pulse 97 Oximetry - Reevaluation(s) Reevaluation #1: Patient remains clinically stable. Further workup is indicated. Doppler and VQ scan has been ordered. Discussed with Dr. Rubio. Patient will be admitted to the telemetry unit. 02/14/19 08:19 ERIC score - Eric Score Age > 65: (0) No Aspirin use within the Past 7 Days: (0) No 3 or more CAD Risk Factors: (1) Yes 2 or more Angina events in past 24 hrs: (0) No Known CAD with more than 50% Stenosis: (0) No Elevated Cardiac Markers: (0) No ST Deviation Greater than 0.5mm: (0) No ERIC Score: 1 ED Medical Decision Making - Lab Data Result diagrams: 02/14/19 05:35 02/14/19 05:35 Laboratory Results - last 24 hr 02/14/19 02/14/19 02/14/19 05:35 05:35 05:35 WBC 12.7 H RBC 5.29 H Hgb 13.1 Hct 40.7 MCV 77 L MCH 25 L MCHC 32 RDW 19.1 H Plt Count 337 Lymph % (Auto) Irrigation Teacher [place] % (Auto) Irrigation Teacher Eos % (Auto) Irrigation Teacher Baso % (Auto) Irrigation Teacher Lymph # Irrigation Teacher [place] # Irrigation Teacher Eos # Irrigation Teacher Baso # Irrigation Teacher Seg Neutrophils % Irrigation Teacher Seg Neutrophils # Irrigation Teacher PT 18.1 H INR 1.54 H CK-MB (CK-2) 2.5 Troponin T < 0.010 Laboratory Results - last 24 hr 02/14/19 02/14/19 02/14/19 05:35 05:35 05:35 WBC 12.7 H RBC 5.29 H Hgb 13.1 Hct 40.7 MCV 77 L MCH 25 L MCHC 32 RDW 19.1 H Plt Count 337 Lymph % (Auto) Irrigation Teacher [place] % (Auto) Irrigation Teacher Eos % (Auto) Irrigation Teacher Baso % (Auto) Irrigation Teacher Lymph # Irrigation Teacher [place] # Irrigation Teacher Eos # Irrigation Teacher Baso # Irrigation Teacher Add Manual Diff Complete Total Counted 100 Seg Neutrophils % Irrigation Teacher Seg Neuts % (Manual) 81.0 H Band Neutrophils % 0 Lymphocytes % (Manual) 15.0 Reactive Lymphs % (Man) 0 Monocytes % (Manual) 4.0 Eosinophils % (Manual) 0 Basophils % (Manual) 0 Metamyelocytes % 0 Myelocytes % 0 Promyelocytes % 0 Blast Cells % 0 Nucleated RBC % Not Reportable Seg Neutrophils # Irrigation Teacher Seg Neutrophils # Man 10.3 H Band Neutrophils # 0.0 Lymphocytes # (Manual) 1.9 Abs React Lymphs (Man) 0.0 Monocytes # (Manual) 0.5 Eosinophils # (Manual) 0.0 Basophils # (Manual) 0.0 Metamyelocytes # 0.0 Myelocytes # 0.0 Promyelocytes # 0.0 Blast Cells # 0.0 WBC Morphology Not Reportable Hypersegmented Neuts Not Reportable Hyposegmented Neuts Not Reportable Hypogranular Neuts Not Reportable Smudge Cells Not Reportable Toxic Granulation Not Reportable Toxic Vacuolation Not Reportable Dohle Bodies Not Reportable Pelger-Huet Anomaly Not Reportable Michelle Rods Not Reportable Platelet Estimate Consistent w auto Clumped Platelets Not Reportable Plt Clumps, EDTA Not Reportable Large Platelets 1+ Giant Platelets Not Reportable Platelet Satelliting Not Reportable Plt Morphology Comment Not Reportable RBC Morphology Not Reportable Dimorphic RBCs Not Reportable Polychromasia Not Reportable Hypochromasia 1+ Poikilocytosis Not Reportable Anisocytosis 1+ Microcytosis Not Reportable Macrocytosis Not Reportable Spherocytes Not Reportable Pappenheimer Bodies Not Reportable Sickle Cells Not Reportable Target Cells Not Reportable Tear Drop Cells Not Reportable Ovalocytes Few Helmet Cells Not Reportable [place]ogal Bodies Not Reportable Th[place]mort[place] Rings Not Reportable Yamilex Cells Not Reportable Bite Cells Not Reportable Crenated Cell Not Reportable Elliptocytes Not Reportable Acanthocytes (Spur) 1+ Rouleaux Not Reportable Hemoglobin C Crystals Not Reportable Schistocytes Not Reportable Malaria parasites Not Reportable Zeke Bodies Not Reportable Hem Pathologist Commnt No PT 18.1 H INR 1.54 H D-Dimer POC ABG pH POC ABG pO2 POC ABG HCO3 POC ABG Total CO2 POC ABG O2 Sat POC ABG Base Excess FiO2 Sodium 139 Potassium 5.3 H Chloride 106.6 Carbon Dioxide 17 L Anion Gap 21 BUN 18 Creatinine 1.0 Estimated GFR > 60 BUN/Creatinine Ratio 18 Glucose 212 H Lactic Acid Calcium 9.2 Magnesium Total Bilirubin Direct Bilirubin Indirect Bilirubin AST ALT Alkaline Phosphatase Total Creatine Kinase 82 CK-MB (CK-2) 2.5 CK-MB (CK-2) Rel Index 3.0 Troponin T < 0.010 NT-Pro-B Natriuret Pep Total Protein Albumin Albumin/Globulin Ratio 02/14/19 02/14/19 02/14/19 07:03 07:03 07:03 WBC RBC Hgb Hct MCV MCH MCHC RDW Plt Count Lymph % (Auto) [place] % (Auto) Eos % (Auto) Baso % (Auto) Lymph # [place] # Eos # Baso # Add Manual Diff Total Counted Seg Neutrophils % Seg Neuts % (Manual) Band Neutrophils % Lymphocytes % (Manual) Reactive Lymphs % (Man) Monocytes % (Manual) Eosinophils % (Manual) Basophils % (Manual) Metamyelocytes % Myelocytes % Promyelocytes % Blast Cells % Nucleated RBC % Seg Neutrophils # Seg Neutrophils # Man Band Neutrophils # Lymphocytes # (Manual) Abs React Lymphs (Man) Monocytes # (Manual) Eosinophils # (Manual) Basophils # (Manual) Metamyelocytes # Myelocytes # Promyelocytes # Blast Cells # WBC Morphology Hypersegmented Neuts Hyposegmented Neuts Hypogranular Neuts Smudge Cells Toxic Granulation Toxic Vacuolation Dohle Bodies Pelger-Huet Anomaly Michelle Rods Platelet Estimate Clumped Platelets Plt Clumps, EDTA Large Platelets Giant Platelets Platelet Satelliting Plt Morphology Comment RBC Morphology Dimorphic RBCs Polychromasia Hypochromasia Poikilocytosis Anisocytosis Microcytosis Macrocytosis Spherocytes Pappenheimer Bodies Sickle Cells Target Cells Tear Drop Cells Ovalocytes Helmet Cells [place] Bodies [place] Rings [place] Cells Bite Cells Crenated Cell Elliptocytes Acanthocytes (Spur) Rouleaux Hemoglobin C Crystals Schistocytes Malaria parasites Zeke Bodies Hem Pathologist Commnt PT INR D-Dimer 675.75 H POC ABG pH POC ABG pO2 POC ABG HCO3 POC ABG Total CO2 POC ABG O2 Sat POC ABG Base Excess FiO2 Sodium Potassium Chloride Carbon Dioxide Anion Gap BUN Creatinine Estimated GFR BUN/Creatinine Ratio Glucose Lactic Acid 2.30 H* Calcium Magnesium 1.90 Total Bilirubin 0.80 Direct Bilirubin 0.3 H Indirect Bilirubin 0.5 AST 21 ALT 16 Alkaline Phosphatase 91 Total Creatine Kinase CK-MB (CK-2) CK-MB (CK-2) Rel Index Troponin T < 0.010 NT-Pro-B Natriuret Pep 2492 H Total Protein 8.4 H Albumin 4.2 Albumin/Globulin Ratio 1.0 02/14/19 07:26 WBC RBC Hgb Hct MCV MCH MCHC RDW Plt Count Lymph % (Auto) [place] % (Auto) Eos % (Auto) Baso % (Auto) Lymph # [place] # Eos # Baso # Add Manual Diff Total Counted Seg Neutrophils % Seg Neuts % (Manual) Band Neutrophils % Lymphocytes % (Manual) Reactive Lymphs % (Man) Monocytes % (Manual) Eosinophils % (Manual) Basophils % (Manual) Metamyelocytes % Myelocytes % Promyelocytes % Blast Cells % Nucleated RBC % Seg Neutrophils # Seg Neutrophils # Man Band Neutrophils # Lymphocytes # (Manual) Abs React Lymphs (Man) Monocytes # (Manual) Eosinophils # (Manual) Basophils # (Manual) Metamyelocytes # Myelocytes # Promyelocytes # Blast Cells # WBC Morphology Hypersegmented Neuts Hyposegmented Neuts Hypogranular Neuts Smudge Cells Toxic Granulation Toxic Vacuolation Dohle Bodies Pelger-Huet Anomaly Michelle Rods Platelet Estimate Clumped Platelets Plt Clumps, EDTA Large Platelets Giant Platelets Platelet Satelliting Plt Morphology Comment RBC Morphology Dimorphic RBCs Polychromasia Hypochromasia Poikilocytosis Anisocytosis Microcytosis Macrocytosis Spherocytes Pappenheimer Bodies Sickle Cells Target Cells Tear Drop Cells Ovalocytes Helmet Cells [place] Bodies [place] Rings [place] Cells Bite Cells Crenated Cell Elliptocytes Acanthocytes (Spur) Rouleaux Hemoglobin C Crystals Schistocytes Malaria parasites Zeke Bodies Hem Pathologist Commnt PT INR D-Dimer POC ABG pH 7.389 POC ABG pO2 112 H POC ABG HCO3 16.6 POC ABG Total CO2 17 POC ABG O2 Sat 98 POC ABG Base Excess -8 FiO2 28 Sodium Potassium Chloride Carbon Dioxide Anion Gap BUN Creatinine Estimated GFR BUN/Creatinine Ratio Glucose Lactic Acid Calcium Magnesium Total Bilirubin Direct Bilirubin Indirect Bilirubin AST ALT Alkaline Phosphatase Total Creatine Kinase CK-MB (CK-2) CK-MB (CK-2) Rel Index Troponin T NT-Pro-B Natriuret Pep Total Protein Albumin Albumin/Globulin Ratio Laboratory Results - last 24 hr 02/14/19 02/14/19 02/14/19 05:35 05:35 05:35 WBC 12.7 H RBC 5.29 H Hgb 13.1 Hct 40.7 MCV 77 L MCH 25 L MCHC 32 RDW 19.1 H Plt Count 337 Lymph % (Auto) Irrigation Teacher [place] % (Auto) Irrigation Teacher Eos % (Auto) Irrigation Teacher Baso % (Auto) Irrigation Teacher Lymph # Irrigation Teacher [place] # Irrigation Teacher Eos # Irrigation Teacher Baso # Irrigation Teacher Add Manual Diff Complete Total Counted 100 Seg Neutrophils % Irrigation Teacher Seg Neuts % (Manual) 81.0 H Band Neutrophils % 0 Lymphocytes % (Manual) 15.0 Reactive Lymphs % (Man) 0 Monocytes % (Manual) 4.0 Eosinophils % (Manual) 0 Basophils % (Manual) 0 Metamyelocytes % 0 Myelocytes % 0 Promyelocytes % 0 Blast Cells % 0 Nucleated RBC % Not Reportable Seg Neutrophils # Irrigation Teacher Seg Neutrophils # Man 10.3 H Band Neutrophils # 0.0 Lymphocytes # (Manual) 1.9 Abs React Lymphs (Man) 0.0 Monocytes # (Manual) 0.5 Eosinophils # (Manual) 0.0 Basophils # (Manual) 0.0 Metamyelocytes # 0.0 Myelocytes # 0.0 Promyelocytes # 0.0 Blast Cells # 0.0 WBC Morphology Not Reportable Hypersegmented Neuts Not Reportable Hyposegmented Neuts Not Reportable Hypogranular Neuts Not Reportable Smudge Cells Not Reportable Toxic Granulation Not Reportable Toxic Vacuolation Not Reportable Dohle Bodies Not Reportable Pelger-Huet Anomaly Not Reportable Michelle Rods Not Reportable Platelet Estimate Consistent w auto Clumped Platelets Not Reportable Plt Clumps, EDTA Not Reportable Large Platelets 1+ Giant Platelets Not Reportable Platelet Satelliting Not Reportable Plt Morphology Comment Not Reportable RBC Morphology Not Reportable Dimorphic RBCs Not Reportable Polychromasia Not Reportable Hypochromasia 1+ Poikilocytosis Not Reportable Anisocytosis 1+ Microcytosis Not Reportable Macrocytosis Not Reportable Spherocytes Not Reportable Pappenheimer Bodies Not Reportable Sickle Cells Not Reportable Target Cells Not Reportable Tear Drop Cells Not Reportable Ovalocytes Few Helmet Cells Not Reportable [place]al Bodies Not Reportable [place] Rings Not Reportable Yamilex Cells Not Reportable Bite Cells Not Reportable Crenated Cell Not Reportable Elliptocytes Not Reportable Acanthocytes (Spur) 1+ Rouleaux Not Reportable Hemoglobin C Crystals Not Reportable Schistocytes Not Reportable Malaria parasites Not Reportable Zeke Bodies Not Reportable Hem Pathologist Commnt No PT 18.1 H INR 1.54 H D-Dimer POC ABG pH POC ABG pO2 POC ABG HCO3 POC ABG Total CO2 POC ABG O2 Sat POC ABG Base Excess FiO2 Sodium 139 Potassium 5.3 H Chloride 106.6 Carbon Dioxide 17 L Anion Gap 21 BUN 18 Creatinine 1.0 Estimated GFR > 60 BUN/Creatinine Ratio 18 Glucose 212 H Lactic Acid Calcium 9.2 Magnesium Total Bilirubin Direct Bilirubin Indirect Bilirubin AST ALT Alkaline Phosphatase Total Creatine Kinase 82 CK-MB (CK-2) 2.5 CK-MB (CK-2) Rel Index 3.0 Troponin T < 0.010 NT-Pro-B Natriuret Pep Total Protein Albumin Albumin/Globulin Ratio 02/14/19 02/14/19 02/14/19 07:03 07:03 07:03 WBC RBC Hgb Hct MCV MCH MCHC RDW Plt Count Lymph % (Auto) [place] % (Auto) Eos % (Auto) Baso % (Auto) Lymph # [place] # Eos # Baso # Add Manual Diff Total Counted Seg Neutrophils % Seg Neuts % (Manual) Band Neutrophils % Lymphocytes % (Manual) Reactive Lymphs % (Man) Monocytes % (Manual) Eosinophils % (Manual) Basophils % (Manual) Metamyelocytes % Myelocytes % Promyelocytes % Blast Cells % Nucleated RBC % Seg Neutrophils # Seg Neutrophils # Man Band Neutrophils # Lymphocytes # (Manual) Abs React Lymphs (Man) Monocytes # (Manual) Eosinophils # (Manual) Basophils # (Manual) Metamyelocytes # Myelocytes # Promyelocytes # Blast Cells # WBC Morphology Hypersegmented Neuts Hyposegmented Neuts Hypogranular Neuts Smudge Cells Toxic Granulation Toxic Vacuolation Dohle Bodies Pelger-Huet Anomaly Michelle Rods Platelet Estimate Clumped Platelets Plt Clumps, EDTA Large Platelets Giant Platelets Platelet Satelliting Plt Morphology Comment RBC Morphology Dimorphic RBCs Polychromasia Hypochromasia Poikilocytosis Anisocytosis Microcytosis Macrocytosis Spherocytes Pappenheimer Bodies Sickle Cells Target Cells Tear Drop Cells Ovalocytes Helmet Cells [place]ogal Bodies Th[place]mort[place] Rings Yamilex Cells Bite Cells Crenated Cell Elliptocytes Acanthocytes (Spur) Rouleaux Hemoglobin C Crystals Schistocytes Malaria parasites Zeke Bodies Hem Pathologist Commnt PT INR D-Dimer 675.75 H POC ABG pH POC ABG pO2 POC ABG HCO3 POC ABG Total CO2 POC ABG O2 Sat POC ABG Base Excess FiO2 Sodium Potassium Chloride Carbon Dioxide Anion Gap BUN Creatinine Estimated GFR BUN/Creatinine Ratio Glucose Lactic Acid 2.30 H* Calcium Magnesium 1.90 Total Bilirubin 0.80 Direct Bilirubin 0.3 H Indirect Bilirubin 0.5 AST 21 ALT 16 Alkaline Phosphatase 91 Total Creatine Kinase CK-MB (CK-2) CK-MB (CK-2) Rel Index Troponin T < 0.010 NT-Pro-B Natriuret Pep 2492 H Total Protein 8.4 H Albumin 4.2 Albumin/Globulin Ratio 1.0 02/14/19 07:26 WBC RBC Hgb Hct MCV MCH MCHC RDW Plt Count Lymph % (Auto) [place] % (Auto) Eos % (Auto) Baso % (Auto) Lymph # [place] # Eos # Baso # Add Manual Diff Total Counted Seg Neutrophils % Seg Neuts % (Manual) Band Neutrophils % Lymphocytes % (Manual) Reactive Lymphs % (Man) Monocytes % (Manual) Eosinophils % (Manual) Basophils % (Manual) Metamyelocytes % Myelocytes % Promyelocytes % Blast Cells % Nucleated RBC % Seg Neutrophils # Seg Neutrophils # Man Band Neutrophils # Lymphocytes # (Manual) Abs React Lymphs (Man) Monocytes # (Manual) Eosinophils # (Manual) Basophils # (Manual) Metamyelocytes # Myelocytes # Promyelocytes # Blast Cells # WBC Morphology Hypersegmented Neuts Hyposegmented Neuts Hypogranular Neuts Smudge Cells Toxic Granulation Toxic Vacuolation Dohle Bodies Pelger-Huet Anomaly Michelle Rods Platelet Estimate Clumped Platelets Plt Clumps, EDTA Large Platelets Giant Platelets Platelet Satelliting Plt Morphology Comment RBC Morphology Dimorphic RBCs Polychromasia Hypochromasia Poikilocytosis Anisocytosis Microcytosis Macrocytosis Spherocytes Pappenheimer Bodies Sickle Cells Target Cells Tear Drop Cells Ovalocytes Helmet Cells [place] Bodies Th[place]on Rings [place] Cells Bite Cells Crenated Cell Elliptocytes Acanthocytes (Spur) Rouleaux Hemoglobin C Crystals Schistocytes Malaria parasites Zeke Bodies Hem Pathologist Commnt PT INR D-Dimer POC ABG pH 7.389 POC ABG pO2 112 H POC ABG HCO3 16.6 POC ABG Total CO2 17 POC ABG O2 Sat 98 POC ABG Base Excess -8 FiO2 28 Sodium Potassium Chloride Carbon Dioxide Anion Gap BUN Creatinine Estimated GFR BUN/Creatinine Ratio Glucose Lactic Acid Calcium Magnesium Total Bilirubin Direct Bilirubin Indirect Bilirubin AST ALT Alkaline Phosphatase Total Creatine Kinase CK-MB (CK-2) CK-MB (CK-2) Rel Index Troponin T NT-Pro-B Natriuret Pep Total Protein Albumin Albumin/Globulin Ratio - EKG Data -: EKG Interpreted by De EKG shows normal: sinus rhythm, axis (left axis deviation) Rate: normal - EKG Data Interpretation: other (nonspecific inferolateral ST-T wave changes) - Radiology Data Radiology results: report reviewed (stable cardiomegaly no acute process) Critical care attestation.: If time is entered above; I have spent that time in minutes in the direct care of this critically ill patient, excluding procedure time. ED Disposition Clinical Impression: Elevated d-dimer Chest pain Qualifiers: Chest pain type: unspecified Qualified Code(s): R07.9 - Chest pain, unspecified Leg pain Qualifiers: Laterality: left Qualified Code(s): M79.605 - Pain in left leg Cardiomyopathy Qualifiers: Cardiomyopathy type: unspecified Qualified Code(s): I42.9 - Cardiomyopathy, unspecified CHF exacerbation Qualifiers: Heart failure type: combined systolic and diastolic Qualified Code(s): I50.43 - Acute on chronic combined systolic (congestive) and diastolic (congestive) heart failure Disposition: OP ADMIT IP TO THIS HOSP Is pt being admited?: Yes Does the pt Need Aspirin: Yes Condition: Stable Instructions: Chest Pain (ED) Referrals: ALEXANDR GOLDBERG MD [Primary Care Provider] - 3-5 Days Time of Disposition: 08:20
[2019-02-14 06:13] LABS: Creatine Kinase MB 2.5 ng/mL (0.0-4.0)
[2019-02-14 06:17] LABS: BUN/Creatinine Ratio 18; Blood Urea Nitrogen 18 mg/dL (9-20); Calcium 9.2 mg/dL (8.4-10.2); Hemolysis Index 34
[2019-02-14 06:52] LABS: Basophils % (Manual) 0 % (0.0-1.8); Eosinophils % (Manual) 0 % (0.0-4.3); Hypochromasia 1+; Total Cells Counted 100
[2019-02-14 06:53] LABS: Anisocytosis 1+; Large Platelets 1+; Ovalocytes Few; Platelet Estimate Consistent w Auto
[2019-02-14 07:55] LABS: Alanine Aminotransferase 16 units/L (7-56); Albumin 4.2 g/dL (3.9-5); Bilirubin,Direct 0.3 mg/dL (0-0.2)
[2019-02-14] MEDS ORDERED: LASIX IV ONE (07:59)
[2019-02-14] MEDS ORDERED: MERREM 1,000 MG in NACL 0.9% 100 ML IV ONE (07:59)
[2019-02-14] MEDS ORDERED: VANCOMYCIN PHARMACY TO DOSE IV SCH (08:00)
[2019-02-14] MEDS ORDERED: BABY ASPIRIN PO ONE (08:21)
[2019-02-14] MEDS ORDERED: VANCOMYCIN 2,000 MG in NACL 0.9% 500 ML 500 ML IV ONE (08:30)
[2019-02-14 08:49] LABS: Bacteria,Urine 1+ /HPF (Negative); Bilirubin,Urine NEG (Negative); Blood,Urine NEG (Negative); Color,Urine Amber (Yellow); Hyaline Casts,Urine 51 /LPF; Mucus,Urine 3+ /HPF
[2019-02-14 08:50] LABS: Amphetamine Screen,Urine PRESUMPTIVE NEGATIVE; Benzodiazepines Screen,Urine PRESUMPTIVE NEGATIVE; Cannabinoid Screen,Urine PRESUMPTIVE NEGATIVE; Cocaine Screen,Urine PRESUMPTIVE NEGATIVE; Methadone Screen,Urine PRESUMPTIVE NEGATIVE; Opiate Screen,Urine PRESUMPTIVE NEGATIVE
--- NOTE | 2019-02-14 09:18 | Vascular Lab Report ---
DUPLEX DOPPLER LOWER EXTREMITY VEINS, BILATERAL INDICATION: leg pain and elevated d-dimer. TECHNIQUE: Duplex doppler imaging was performed through the veins of both lower extremities using venous reynaldo david and other maneuvers. COMPARISON: None available. FINDINGS: Right Common Femoral vein: Negative. Right Femoral vein: Negative. Right Popliteal vein: Negative. Right Calf veins: Negative. Left Common Femoral vein: Negative. Left Femoral vein: Negative. Left Popliteal vein: Negative. Left Calf veins: Negative. Additional findings: Small left popliteal cyst. Benign reactive left inguinal node with echogenic fat ty hilum measuring 12 mm in short axis diameter. IMPRESSION: 1. No sonographic evidence for DVT in either lower extremity. Signer Name: Josep Millan MD Signed: 02/14/2019 9:13 AM Workstation Name: [id number]
--- NOTE | 2019-02-14 10:10 | Nuclear Medicine Report ---
Ventilation perfusion scintigraphy Indication: chest pain and elevated d-dimer, bilateral lower extremity edema COMPARISON: None Ventilation study was performed with inhalation of 15 mCi of 133 Xenon aerosol. Perfusion study was p erformed with intravenous administration of 5 mCi of 99m technetium MAA. Ventilation findings: Moderate trapping is seen in the left apical region and left midlung. Perfusion findings: Multiple bilateral small areas of peripheral irregularity are seen. A moderate po sterior left apical defect is seen which correlates with a larger ventilatory abnormality without obv ious radiographic change in this region. Impression: Low probability for pulmonary thromboembolism. Signer Name: Bhaskar Arita MD Signed: 02/14/2019 10:06 AM Workstation Name: [id number]
--- NOTE | 2019-02-14 10:13 | History and Physical Report ---
History of Present Illness Date of examination: 02/14/19 Date of admission: 02/14/19 08:21 Chief complaint: Chest pain and shortness of breath History of present illness: 58-year-old male patient with significant past medical history of atrial fibrillation systolic congestive heart failure nonischemic cardiomyopathy type 2 diabetes mellitus gout chronic kidney disease hypertension malnutrition Presented to the emergency room with worsening shortness of breath and chest pain Of 1 day duration. Patient is noncompliant with medications. At the time of my evaluation patient complains of mild shortness of breath, and intermittent vague chest pain Denies nausea vomiting or abdominal pain Denies headache dizziness weakness or numbness Initial workup in the emergency room Consistent with sepsis with lactic acidosis and leukocytosis. Patient also has elevated d-dimer, VQ scan low probability for PE Lower extremity venous Doppler negative for DVT Empiric antibiotics in the emergency room Past History Past Medical History: atrial fib, diabetes, hypertension, other (cardiomyopathy, gout, mal nutrition) Past Surgical History: No surgical history Social history: lives with family, smoking. denies: alcohol abuse, prescription drug abuse Family history: hypertension Medications and Allergies Allergies Allergy/AdvReac Type Severity Reaction Status Date / Time No Known Allergies Allergy Verified 11/30/18 15:13 Home Medications Medication Instructions Recorded Confirmed Last Taken Type Allopurinol [Zyloprim] 100 mg PO QDAY #30 tablet 02/03/19 02/14/19 02/13/19 Rx Apixaban [Eliquis] 5 mg PO Q12HR #60 tablet 02/03/19 02/14/19 02/13/19 Rx Aspirin EC 81 mg PO QDAY #30 tablet. 02/03/19 02/14/19 02/13/19 Rx Famotidine [Pepcid] 20 mg PO BID #60 tablet 02/03/19 02/14/19 02/13/19 Rx Metoprolol [Lopressor TAB] 50 mg PO BID #60 tablet 02/03/19 02/14/19 02/13/19 Rx Spironolactone [Aldactone] 25 mg PO QDAY #30 tablet 02/03/19 02/14/19 02/13/19 Rx Furosemide [Lasix TAB] 40 mg PO QDAY 02/14/19 02/14/19 02/13/19 History Ranitidine HCl [Heartburn Relief] 75 mg PO PRN 02/14/19 02/14/19 02/13/19 History Active Meds: Active Medications Vancomycin HCl 2,000 mg/ (Sodium Chloride) 540 mls @ 270 mls/hr IV ONCE ONE Stop: 02/14/19 10:29 Last Admin: 02/14/19 09:45 Dose: 270 mls/hr Documented by: Review of Systems Constitutional: weakness, no weight loss, no weight gain Cardiovascular: chest pain, shortness of breath, no palpitations Respiratory: shortness of breath, no cough Gastrointestinal: no abdominal pain, no nausea, no vomiting Genitourinary Male: no dysuria, no flank pain Musculoskeletal: no myalgias, no arthritis Integumentary: no rash, no lesions Neurological: no seizures, no syncope Psychiatric: no anxiety, no depression Hematologic/Lymphatic: no easy bruising, no easy bleeding Allergic/Immunologic: no urticaria, no allergic rhinitis Exam - Constitutional Vitals: Temp Pulse Resp BP Pulse Ox 98.4 F 72 16 91/71 99 02/14/19 05:06 02/14/19 08:21 02/14/19 08:21 02/14/19 08:21 02/14/19 08:21 General appearance: Present: mild distress, well-nourished, obese (morbidly obese) - EENT Eyes: Present: PERRL, EOM intact - Neck Neck: Present: supple, normal ROM - Respiratory Respiratory effort: normal Respiratory: bilateral: diminished, rales, negative: rhonchi, wheezing - Cardiovascular Rhythm: regular Heart Sounds: Present: S1 & S2 - Extremities Extremities: no ischemia Extremity abnormal: edema - Abdominal General gastrointestinal: Present: soft, non-tender, non-distended, normal bowel sounds - Integumentary Integumentary: Present: clear, warm - Musculoskeletal Musculoskeletal: strength equal bilaterally - Psychiatric Psychiatric: appropriate mood/affect, cooperative - Neurologic Neurologic: moves all extremities Results - Labs CBC & Chem 7: 02/14/19 05:35 02/14/19 05:35 Labs: Abnormal lab results 02/14/19 02/14/19 02/14/19 Range/Units 05:35 05:35 05:35 WBC 12.7 H (4.5-11.0) K/mm3 RBC 5.29 H (3.65-5.03) M/mm3 MCV 77 L (84-94) fl MCH 25 L (28-32) pg RDW 19.1 H (13.2-15.2) % Seg Neuts % (Manual) 81.0 H (40.0-70.0) % Seg Neutrophils # Man 10.3 H (1.8-7.7) K/mm3 PT 18.1 H (12.2-14.9) Sec. INR 1.54 H (0.87-1.13) D-Dimer (0-234) ng/mlDDU POC ABG pO2 (80-105) Potassium 5.3 H (3.6-5.0) mmol/L Carbon Dioxide 17 L (22-30) mmol/L Glucose 212 H (75-100) mg/dL Lactic Acid (0.7-2.0) mmol/L Direct Bilirubin (0-0.2) mg/dL NT-Pro-B Natriuret Pep (0-900) pg/mL Total Protein (6.3-8.2) g/dL Urine WBC (Auto) (0.0-6.0) /HPF 02/14/19 02/14/19 02/14/19 Range/Units 07:03 07:03 07:03 WBC (4.5-11.0) K/mm3 RBC (3.65-5.03) M/mm3 MCV (84-94) fl MCH (28-32) pg RDW (13.2-15.2) % Seg Neuts % (Manual) (40.0-70.0) % Seg Neutrophils # Man (1.8-7.7) K/mm3 PT (12.2-14.9) Sec. INR (0.87-1.13) D-Dimer 675.75 H (0-234) ng/mlDDU POC ABG pO2 (80-105) Potassium (3.6-5.0) mmol/L Carbon Dioxide (22-30) mmol/L Glucose (75-100) mg/dL Lactic Acid 2.30 H* (0.7-2.0) mmol/L Direct Bilirubin 0.3 H (0-0.2) mg/dL NT-Pro-B Natriuret Pep 2492 H (0-900) pg/mL Total Protein 8.4 H (6.3-8.2) g/dL Urine WBC (Auto) (0.0-6.0) /HPF 02/14/19 02/14/19 Range/Units 07:26 Unknown WBC (4.5-11.0) K/mm3 RBC (3.65-5.03) M/mm3 MCV (84-94) fl MCH (28-32) pg RDW (13.2-15.2) % Seg Neuts % (Manual) (40.0-70.0) % Seg Neutrophils # Man (1.8-7.7) K/mm3 PT (12.2-14.9) Sec. INR (0.87-1.13) D-Dimer (0-234) ng/mlDDU POC ABG pO2 112 H (80-105) Potassium (3.6-5.0) mmol/L Carbon Dioxide (22-30) mmol/L Glucose (75-100) mg/dL Lactic Acid (0.7-2.0) mmol/L Direct Bilirubin (0-0.2) mg/dL NT-Pro-B Natriuret Pep (0-900) pg/mL Total Protein (6.3-8.2) g/dL Urine WBC (Auto) 43.0 H (0.0-6.0) /HPF Assessment and Plan --Acute on chronic systolic congestive heart failure; Continue anti-failure medications, input output monitoring Low-sodium diet, water restriction Cardiology consult if needed --Lactic acidosis; rule out sepsis Empiric antibiotics, follow cultures --Sepsis; leukocytosis, tachycardia, lactic acidosis possible urinary tract infection Empiric antibiotics follow cultures --History of atrial fibrillation; rate controlled Continue current beta blockers, chronic anticoagulation with Eliquis --History of gout; resume home medications Supportive care --Type 2 diabetes mellitus; Accu-Chek sliding scale coverage ADA diet and insulin as needed --Hypertension; resume home antihypertensives When necessary medications --DVT prophylaxis: on Eliquis --Full Code --Ongoing tobacco use; smoking cessation counseling Nicotine patch as needed Monitor closely and adjust management as needed Disposition; discharge in medically stable t
[2019-02-14] MEDS ORDERED: ZOSYN/NS 4.5GM/100ML 4.5 GM/100 ML VIAL IV ONE (14:43)
[2019-02-14] MEDS: ZOSYN/NS 4.5GM/100ML 4.5 GM/100 ML VIAL IV SCH ×2 (14:47→22:21)
[2019-02-14] MEDS ORDERED: HumuLIN R IV ONE (15:13)
[2019-02-14] MEDS ORDERED: VANCOMYCIN 2,000 MG in NACL 0.9% 500 ML 500 ML IV SCH (22:00)
[2019-02-14] MEDS: ELIQUIS PO SCH (22:18)
[2019-02-14] MEDS: PEPCID PO SCH (22:18)
[2019-02-14] MEDS: PERCOCET 5/325 PO PRN (22:18)
[2019-02-14] MEDS: LOPRESSOR PO SCH (22:21)
[2019-02-14] MEDS: HumaLOG SUB-Q SCH (22:58)
[2019-02-15] MEDS: ZOSYN/NS 4.5GM/100ML 4.5 GM/100 ML VIAL IV SCH ×3 (06:06→21:55)
[2019-02-15] MEDS: LASIX IV SCH ×2 (06:06→17:46)
[2019-02-15 06:29] LABS: Basophils # (Auto) 0.1 K/mm3 (0.0-0.1); Eosinophils # (Auto) 0.1 K/mm3 (0.0-0.4); Eosinophils % (Auto) 0.8 % (0.0-4.3); Hematocrit 42.4 % (35.5-45.6); Hemoglobin 13.5 gm/dl (11.8-15.2); Lymphocytes # (Auto) 3.3 K/mm3 (1.2-5.4); Lymphocytes % (Auto) 23.9 % (13.4-35.0); Mean Corpuscular HGB Conc 32 % (32-34); Mean Corpuscular Volume 77 fl (84-94); Monocytes # (Auto) 1.3 K/mm3 (0.0-0.8); Monocytes % (Auto) 9.2 % (0.0-7.3); Platelet Count 310 K/mm3 (140-440); Red Blood Count 5.48 M/mm3 (3.65-5.03); Red Cell Distribution Width 17.8 % (13.2-15.2)
[2019-02-15 06:42] LABS: Alanine Aminotransferase 28 units/L (7-56); Albumin 4.1 g/dL (3.9-5); BUN/Creatinine Ratio 14; Blood Urea Nitrogen 18 mg/dL (9-20); Calcium 9.6 mg/dL (8.4-10.2); Hemolysis Index 17
[2019-02-15] MEDS: HumaLOG SUB-Q SCH ×4 (09:26→21:55)
[2019-02-15] MEDS ORDERED: ROCEPHIN/NS 1 GM/50 ML 1 GM/50 ML BAG IV SCH (10:00)
[2019-02-15] MEDS: ALDACTONE PO SCH (11:46)
[2019-02-15] MEDS: LOPRESSOR PO SCH ×2 (11:47→21:54)
[2019-02-15] MEDS: HALFPRIN EC PO SCH (11:47)
[2019-02-15] MEDS: ELIQUIS PO SCH ×2 (11:47→21:54)
[2019-02-15] MEDS: PEPCID PO SCH ×2 (11:48→21:54)
[2019-02-15] MEDS: ZYLOPRIM PO SCH (11:48)
--- NOTE | 2019-02-15 17:24 | Progress Note ---
Assessment and Plan Assessment and plan: --Sepsis; secondary to UTI leukocytosis, tachycardia, lactic acidosis Abdominal urinalysis,Empiric antibiotics follow cultures --Lactic acidosis; resolved Probably secondary to sepsis, UTI, supportive care --Acute on chronic systolic congestive heart failure; Continue anti-failure medications, input output monitoring Low-sodium diet, water restriction Symptoms slightly improved --History of atrial fibrillation; rate controlled Continue current beta blockers, chronic anticoagulation with Eliquis --History of gout; resume home medications Supportive care --Type 2 diabetes mellitus; Accu-Chek sliding scale coverage ADA diet and insulin as needed --Hypertension; resume home antihypertensives When necessary medications --DVT prophylaxis: on Eliquis --Full Code --Ongoing tobacco use; smoking cessation counseling Nicotine patch as needed, preventative counseling --Medical noncompliance; patient strongly advised to comply with medications and diet Follow-up visits, but denies understanding Monitor closely and adjust management as needed Disposition; discharge when medically stable History Interval history: Patient seen and examined this morning , medical records reviewed Physical activity and no new complaints Initially patient refused on the medications Prevacid after explaining the importance, patient agreed Denies chest pain mild shortness of breath Vital signs noted Hospitalist Physical - Constitutional Vitals: Temp Pulse Resp BP Pulse Ox 97.4 F L 86 18 117/89 96 02/15/19 07:41 02/15/19 11:47 02/15/19 10:00 02/15/19 11:47 02/15/19 10:00 General appearance: Present: no acute distress, well-nourished, obese (morbidly obese) - EENT Eyes: Present: PERRL, EOM intact - Neck Neck: Present: supple, normal ROM - Respiratory Respiratory effort: normal Respiratory: bilateral: diminished, rales, negative: rhonchi, wheezing - Cardiovascular Rhythm: regular Heart Sounds: Present: S1 & S2 - Extremities Extremities: no ischemia Extremity abnormal: edema - Abdominal General gastrointestinal: soft, non-tender, non-distended, normal bowel sounds - Integumentary Integumentary: Present: clear, warm - Psychiatric Psychiatric: appropriate mood/affect, cooperative - Neurologic Neurologic: CNII-XII intact, moves all extremities Results - Labs CBC & Chem 7: 02/15/19 05:39 02/15/19 05:39 Labs: Laboratory Last Values WBC 13.7 K/mm3 (4.5-11.0) H 02/15/19 05:39 RBC 5.48 M/mm3 (3.65-5.03) H 02/15/19 05:39 Hgb 13.5 gm/dl (11.8-15.2) 02/15/19 05:39 Hct 42.4 % (35.5-45.6) 02/15/19 05:39 MCV 77 fl (84-94) L 02/15/19 05:39 MCH 25 pg (28-32) L 02/15/19 05:39 MCHC 32 % (32-34) 02/15/19 05:39 RDW 17.8 % (13.2-15.2) H 02/15/19 05:39 Plt Count 310 K/mm3 (140-440) 02/15/19 05:39 Lymph % (Auto) 23.9 % (13.4-35.0) 02/15/19 05:39 [place] % (Auto) 9.2 % (0.0-7.3) H 02/15/19 05:39 Eos % (Auto) 0.8 % (0.0-4.3) 02/15/19 05:39 Baso % (Auto) 1.0 % (0.0-1.8) 02/15/19 05:39 Lymph # 3.3 K/mm3 (1.2-5.4) 02/15/19 05:39 [place] # 1.3 K/mm3 (0.0-0.8) H 02/15/19 05:39 Eos # 0.1 K/mm3 (0.0-0.4) 02/15/19 05:39 Baso # 0.1 K/mm3 (0.0-0.1) 02/15/19 05:39 Add Manual Diff Complete 02/14/19 05:35 Total Counted 100 02/14/19 05:35 Seg Neutrophils % 65.1 % (40.0-70.0) 02/15/19 05:39 Seg Neuts % (Manual) 81.0 % (40.0-70.0) H 02/14/19 05:35 0 % 02/14/19 05:35 15.0 % (13.4-35.0) 02/14/19 05:35 Reactive Lymphs % (Man) 0 % 02/14/19 05:35 4.0 % (0.0-7.3) 02/14/19 05:35 0 % (0.0-4.3) 02/14/19 05:35 0 % (0.0-1.8) 02/14/19 05:35 0 % 02/14/19 05:35 0 % 02/14/19 05:35 0 % 02/14/19 05:35 0 % 02/14/19 05:35 Nucleated RBC % Not Reportable 02/14/19 05:35 Seg Neutrophils # 8.9 K/mm3 (1.8-7.7) H 02/15/19 05:39 Seg Neutrophils # Man 10.3 K/mm3 (1.8-7.7) H 02/14/19 05:35 Band Neutrophils # 0.0 K/mm3 02/14/19 05:35 1.9 K/mm3 (1.2-5.4) 02/14/19 05:35 Abs React Lymphs (Man) 0.0 K/mm3 02/14/19 05:35 0.5 K/mm3 (0.0-0.8) 02/14/19 05:35 0.0 K/mm3 (0.0-0.4) 02/14/19 05:35 0.0 K/mm3 (0.0-0.1) 02/14/19 05:35 0.0 K/mm3 02/14/19 05:35 0.0 K/mm3 02/14/19 05:35 0.0 K/mm3 02/14/19 05:35 Blast Cells # 0.0 K/mm3 02/14/19 05:35 WBC Morphology Not Reportable 02/14/19 05:35 Hypersegmented Neuts Not Reportable 02/14/19 05:35 Hyposegmented Neuts Not Reportable 02/14/19 05:35 Hypogranular Neuts Not Reportable 02/14/19 05:35 Not Reportable 02/14/19 05:35 Not Reportable 02/14/19 05:35 Not Reportable 02/14/19 05:35 Not Reportable 02/14/19 05:35 Not Reportable 02/14/19 05:35 Not Reportable 02/14/19 05:35 Consistent w auto 02/14/19 05:35 Not Reportable 02/14/19 05:35 Plt Clumps, EDTA Not Reportable 02/14/19 05:35 1+ 02/14/19 05:35 Not Reportable 02/14/19 05:35 Not Reportable 02/14/19 05:35 Plt Morphology Comment Not Reportable 02/14/19 05:35 RBC Morphology Not Reportable 02/14/19 05:35 Dimorphic RBCs Not Reportable 02/14/19 05:35 Not Reportable 02/14/19 05:35 1+ 02/14/19 05:35 Not Reportable 02/14/19 05:35 1+ 02/14/19 05:35 Not Reportable 02/14/19 05:35 Not Reportable 02/14/19 05:35 Not Reportable 02/14/19 05:35 Not Reportable 02/14/19 05:35 Not Reportable 02/14/19 05:35 Not Reportable 02/14/19 05:35 Not Reportable 02/14/19 05:35 Few 02/14/19 05:35 Not Reportable 02/14/19 05:35 Not Reportable 02/14/19 05:35 Not Reportable 02/14/19 05:35 Not Reportable 02/14/19 05:35 Not Reportable 02/14/19 05:35 Not Reportable 02/14/19 05:35 Not Reportable 02/14/19 05:35 Acanthocytes (Spur) 1+ 02/14/19 05:35 Rouleaux Not Reportable 02/14/19 05:35 Not Reportable 02/14/19 05:35 Not Reportable 02/14/19 05:35 Not Reportable 02/14/19 05:35 Not Reportable 02/14/19 05:35 Hem Pathologist Commnt No 02/14/19 05:35 PT 18.1 Sec. (12.2-14.9) H 02/14/19 05:35 INR 1.54 (0.87-1.13) H 02/14/19 05:35 675.75 ng/mlDDU (0-234) H 02/14/19 07:03 POC ABG pH 7.389 (7.35-7.45) 02/14/19 07:26 POC ABG pO2 112 (80-105) H 02/14/19 07:26 POC ABG HCO3 16.6 (22-26 mml/L) 02/14/19 07:26 POC ABG Total CO2 17 (23-27mmol/L) 02/14/19 07:26 POC ABG O2 Sat 98 02/14/19 07:26 POC ABG Base Excess -8 ((-2) - (+3)mmol/L) 02/14/19 07:26 28 % 02/14/19 07:26 Sodium 136 mmol/L (137-145) L 02/15/19 05:39 Potassium 4.4 mmol/L (3.6-5.0) 02/15/19 05:39 Chloride 100.6 mmol/L (98-107) 02/15/19 05:39 Carbon Dioxide 22 mmol/L (22-30) 02/15/19 05:39 18 mmol/L 02/15/19 05:39 BUN 18 mg/dL (9-20) 02/15/19 05:39 1.3 mg/dL (0.8-1.5) 02/15/19 05:39 Estimated GFR > 60 ml/min 02/15/19 05:39 14 % 02/15/19 05:39 Glucose 158 mg/dL (75-100) H 02/15/19 05:39 POC Glucose 209 (70-105) H 02/15/19 12:21 Lactic Acid 1.90 mmol/L (0.7-2.0) 02/14/19 21:35 Calcium 9.6 mg/dL (8.4-10.2) 02/15/19 05:39 Magnesium 1.90 mg/dL (1.7-2.3) 02/14/19 07:03 1.70 mg/dL (0.1-1.2) H 02/15/19 05:39 0.3 mg/dL (0-0.2) H 02/14/19 07:03 0.5 mg/dL 02/14/19 07:03 AST 33 units/L (5-40) 02/15/19 05:39 ALT 28 units/L (7-56) 02/15/19 05:39 91 units/L (35-129) 02/15/19 05:39 176 units/L (55-170) H 02/15/19 05:39 CK-MB (CK-2) 3.0 ng/mL (0.0-4.0) 02/15/19 05:39 CK-MB (CK-2) Rel Index 1.7 (0-4) 02/15/19 05:39 < 0.010 ng/mL (0.00-0.029) 02/15/19 05:39 NT-Pro-B Natriuret Pep 2492 pg/mL (0-900) H 02/14/19 07:03 8.7 g/dL (6.3-8.2) H 02/15/19 05:39 4.1 g/dL (3.9-5) 02/15/19 05:39 0.9 % 02/15/19 05:39 Melody (Yellow) 02/14/19 Unknown Slightly-cloudy (Clear) 02/14/19 Unknown 5.0 (5.0-7.0) 02/14/19 Unknown Ur Specific [place] 1.024 (1.003-1.030) 02/14/19 Unknown 100 mg/dl mg/dL (Negative) 02/14/19 Unknown Neg mg/dL (Negative) 02/14/19 Unknown Neg mg/dL (Negative) 02/14/19 Unknown Neg (Negative) 02/14/19 Unknown Neg (Negative) 02/14/19 Unknown Ur Reducing Substances Not Reportable 02/14/19 Unknown Neg (Negative) 02/14/19 Unknown Not Reportable 02/14/19 Unknown 4.0 mg/dL (<2.0) 02/14/19 Unknown Ur Leukocyte Esterase Sm (Negative) 02/14/19 Unknown 43.0 /HPF (0.0-6.0) H 02/14/19 Unknown 3.0 /HPF (0.0-6.0) 02/14/19 Unknown U Epithel Cells (Auto) 1.0 /HPF (0-13.0) 02/14/19 Unknown 1+ /HPF (Negative) 02/14/19 Unknown Hyaline Casts 51 /LPF 02/14/19 Unknown 3+ /HPF 02/14/19 Unknown Presumptive negative 02/14/19 Unknown Presumptive negative 02/14/19 Unknown Ur Barbiturates Screen Presumptive negative 02/14/19 Unknown Ur Phencyclidine Scrn Presumptive negative 02/14/19 Unknown Ur Amphetamines Screen Presumptive negative 02/14/19 Unknown U Benzodiazepines Scrn Presumptive negative 02/14/19 Unknown Presumptive negative 02/14/19 Unknown U Marijuana (THC) Screen Presumptive negative 02/14/19 Unknown Disclamer 02/14/19 Unknown Active Medications - Current Medications Current Medications: Generic Name Dose Route Start Last Admin Trade Name Freq PRN Reason Stop Dose Admin Allopurinol 100 mg 02/15/19 10:00 02/15/19 11:48 Zyloprim PO Not Given QDAY [facility] Apixaban 5 mg 02/14/19 22:00 02/15/19 11:47 Eliquis PO Not Given Q12HR [facility] Protocol Aspirin 81 mg 02/15/19 10:00 02/15/19 11:47 Halfprin Ec PO Not Given QDAY [facility] Famotidine 20 mg 02/14/19 22:00 02/15/19 11:48 Pepcid PO Not Given BID [facility] Furosemide 40 mg 02/15/19 06:00 02/15/19 06:06 Lasix IV 40 mg 0600,1800 JANINE Administration Piperacillin Sod/Tazobactam Sod 4.5 gm in 100 mls @ 200 mls/hr 02/14/19 14:00 02/15/19 13:04 Zosyn/Ns 4.5gm/100ml IV 200 mls/hr Q8HR JANINE Administration Protocol Insulin Human Lispro 0 unit 02/14/19 22:00 02/15/19 14:24 Humalog SUB-Q 3 unit ACHS JANINE Administration Protocol Metoprolol Tartrate 50 mg 02/14/19 22:00 02/15/19 11:47 Lopressor PO Not Given BID [facility] Oxycodone/Acetaminophen 1 tab 02/14/19 21:37 02/14/19 22:18 Percocet 5/325 PO 1 tab Q6H PRN Administration Pain, Moderate (4-6) Spironolactone 25 mg 02/15/19 10:00 02/15/19 11:46 Aldactone PO Not Given QDAY [facility]
[2019-02-16] MEDS ORDERED: ZOFRAN IV PRN (02:10)
[2019-02-16] MEDS: LASIX IV SCH ×2 (05:23→06:31)
[2019-02-16] MEDS: ZOSYN/NS 4.5GM/100ML 4.5 GM/100 ML VIAL IV SCH ×3 (05:23→21:58)
[2019-02-16 06:01] LABS: Basophils % (Auto) 0.3 % (0.0-1.8); Eosinophils # (Auto) 0.2 K/mm3 (0.0-0.4); Eosinophils % (Auto) 2.4 % (0.0-4.3); Hematocrit 39.5 % (35.5-45.6); Hemoglobin 12.5 gm/dl (11.8-15.2); Lymphocytes # (Auto) 2.2 K/mm3 (1.2-5.4); Lymphocytes % (Auto) 21.5 % (13.4-35.0); Mean Corpuscular HGB Conc 32 % (32-34); Mean Corpuscular Volume 78 fl (84-94); Monocytes # (Auto) 0.9 K/mm3 (0.0-0.8); Monocytes % (Auto) 8.9 % (0.0-7.3); Platelet Count 263 K/mm3 (140-440); Red Blood Count 5.09 M/mm3 (3.65-5.03); Red Cell Distribution Width 17.5 % (13.2-15.2)
[2019-02-16 06:21] LABS: BUN/Creatinine Ratio 18; Blood Urea Nitrogen 22 mg/dL (9-20); Hemolysis Index 7
[2019-02-16] MEDS: HALFPRIN EC PO SCH (09:24)
[2019-02-16] MEDS: ELIQUIS PO SCH ×2 (09:24→21:59)
[2019-02-16] MEDS: PEPCID PO SCH ×2 (09:24→21:59)
[2019-02-16] MEDS: ZYLOPRIM PO SCH (09:24)
[2019-02-16] MEDS: HumaLOG SUB-Q SCH ×4 (10:27→22:04)
[2019-02-16] MEDS: ALDACTONE PO SCH (11:00)
[2019-02-16] MEDS: LOPRESSOR PO SCH ×2 (11:00→21:59)
--- NOTE | 2019-02-16 14:50 | Progress Note ---
Assessment and Plan Assessment and plan: Patient's blood pressures in the lower range Lasix, metoprolol, spironolactone, lisinopril dose reduced --Acute on chronic systolic congestive heart failure;EF 15-20% Continue anti-failure medications, input output monitoring Low-sodium diet, water restriction, Symptoms slightly improved Cardiology consultation --Sepsis; secondary to UTI leukocytosis, tachycardia, lactic acidosis Abdominal urinalysis,Empiric antibiotics follow cultures --Lactic acidosis; resolved Probably secondary to sepsis, UTI, --History of paroxysmal atrial fibrillation; sinus rhythm today on beta blockers, chronic anticoagulation with Eliquis Patient is noncompliant with anticoagulation at home Strongly advised to comply ,discussed with cardiology [employer] --History of gout; resume home medications --Type 2 diabetes mellitus; Accu-Chek sliding scale coverage ADA diet and insulin as needed, Ck A1c --Hypertension; the patient has no lower range Adjust antihypertensives dosages , Closely monitor --DVT prophylaxis: on Eliquis --Full Code --Ongoing tobacco use; smoking cessation counseling Nicotine patch as needed, preventative counseling --Medical noncompliance; patient strongly advised to comply with medications and diet, Follow-up visits, patient verbalized understanding Disposition; F/U cardiology recommendations discharge when medically stable History Interval history: Patient seen and examined this morning medical records reviewed Patient has mild shortness of breath, denies chest pain Alert awake Oriented 3 Vital signs reviewed Hospitalist Physical - Constitutional Vitals: Temp Pulse Resp BP Pulse Ox 97.7 F 82 18 108/83 100 02/16/19 08:16 02/16/19 12:38 02/16/19 10:00 02/16/19 12:38 02/16/19 12:38 General appearance: Present: no acute distress, well-nourished, obese (morbidly obese) - EENT Eyes: Present: PERRL, EOM intact - Neck Neck: Present: supple, normal ROM - Respiratory Respiratory effort: normal Respiratory: bilateral: diminished, rales, negative: rhonchi, wheezing - Cardiovascular Rhythm: regular Heart Sounds: Present: S1 & S2 - Extremities Extremities: no ischemia Extremity abnormal: edema - Abdominal General gastrointestinal: soft, non-tender, non-distended, normal bowel sounds - Integumentary Integumentary: Present: clear, warm - Psychiatric Psychiatric: appropriate mood/affect, cooperative - Neurologic Neurologic: CNII-XII intact, moves all extremities Results - Labs CBC & Chem 7: 02/16/19 05:12 02/16/19 05:12 Labs: Laboratory Last Values WBC 10.1 K/mm3 (4.5-11.0) 02/16/19 05:12 RBC 5.09 M/mm3 (3.65-5.03) H 02/16/19 05:12 Hgb 12.5 gm/dl (11.8-15.2) 02/16/19 05:12 Hct 39.5 % (35.5-45.6) 02/16/19 05:12 MCV 78 fl (84-94) L 02/16/19 05:12 MCH 25 pg (28-32) L 02/16/19 05:12 MCHC 32 % (32-34) 02/16/19 05:12 RDW 17.5 % (13.2-15.2) H 02/16/19 05:12 Plt Count 263 K/mm3 (140-440) 02/16/19 05:12 Lymph % (Auto) 21.5 % (13.4-35.0) 02/16/19 05:12 [place] % (Auto) 8.9 % (0.0-7.3) H 02/16/19 05:12 Eos % (Auto) 2.4 % (0.0-4.3) 02/16/19 05:12 Baso % (Auto) 0.3 % (0.0-1.8) 02/16/19 05:12 Lymph # 2.2 K/mm3 (1.2-5.4) 02/16/19 05:12 [place] # 0.9 K/mm3 (0.0-0.8) H 02/16/19 05:12 Eos # 0.2 K/mm3 (0.0-0.4) 02/16/19 05:12 Baso # 0.0 K/mm3 (0.0-0.1) 02/16/19 05:12 Add Manual Diff Complete 02/14/19 05:35 Total Counted 100 02/14/19 05:35 Seg Neutrophils % 66.9 % (40.0-70.0) 02/16/19 05:12 Seg Neuts % (Manual) 81.0 % (40.0-70.0) H 02/14/19 05:35 0 % 02/14/19 05:35 15.0 % (13.4-35.0) 02/14/19 05:35 Reactive Lymphs % (Man) 0 % 02/14/19 05:35 4.0 % (0.0-7.3) 02/14/19 05:35 0 % (0.0-4.3) 02/14/19 05:35 0 % (0.0-1.8) 02/14/19 05:35 0 % 02/14/19 05:35 0 % 02/14/19 05:35 0 % 02/14/19 05:35 0 % 02/14/19 05:35 Nucleated RBC % Not Reportable 02/14/19 05:35 Seg Neutrophils # 6.7 K/mm3 (1.8-7.7) 02/16/19 05:12 Seg Neutrophils # Man 10.3 K/mm3 (1.8-7.7) H 02/14/19 05:35 Band Neutrophils # 0.0 K/mm3 02/14/19 05:35 1.9 K/mm3 (1.2-5.4) 02/14/19 05:35 Abs React Lymphs (Man) 0.0 K/mm3 02/14/19 05:35 0.5 K/mm3 (0.0-0.8) 02/14/19 05:35 0.0 K/mm3 (0.0-0.4) 02/14/19 05:35 0.0 K/mm3 (0.0-0.1) 02/14/19 05:35 0.0 K/mm3 02/14/19 05:35 0.0 K/mm3 02/14/19 05:35 0.0 K/mm3 02/14/19 05:35 Blast Cells # 0.0 K/mm3 02/14/19 05:35 WBC Morphology Not Reportable 02/14/19 05:35 Hypersegmented Neuts Not Reportable 02/14/19 05:35 Hyposegmented Neuts Not Reportable 02/14/19 05:35 Hypogranular Neuts Not Reportable 02/14/19 05:35 Not Reportable 02/14/19 05:35 Not Reportable 02/14/19 05:35 Not Reportable 02/14/19 05:35 Not Reportable 02/14/19 05:35 Not Reportable 02/14/19 05:35 Not Reportable 02/14/19 05:35 Consistent w auto 02/14/19 05:35 Not Reportable 02/14/19 05:35 Plt Clumps, EDTA Not Reportable 02/14/19 05:35 1+ 02/14/19 05:35 Not Reportable 02/14/19 05:35 Not Reportable 02/14/19 05:35 Plt Morphology Comment Not Reportable 02/14/19 05:35 RBC Morphology Not Reportable 02/14/19 05:35 Dimorphic RBCs Not Reportable 02/14/19 05:35 Not Reportable 02/14/19 05:35 1+ 02/14/19 05:35 Not Reportable 02/14/19 05:35 1+ 02/14/19 05:35 Not Reportable 02/14/19 05:35 Not Reportable 02/14/19 05:35 Not Reportable 02/14/19 05:35 Not Reportable 02/14/19 05:35 Not Reportable 02/14/19 05:35 Not Reportable 02/14/19 05:35 Not Reportable 02/14/19 05:35 Few 02/14/19 05:35 Not Reportable 02/14/19 05:35 Not Reportable 02/14/19 05:35 Not Reportable 02/14/19 05:35 Not Reportable 02/14/19 05:35 Not Reportable 02/14/19 05:35 Not Reportable 02/14/19 05:35 Not Reportable 02/14/19 05:35 Acanthocytes (Spur) 1+ 02/14/19 05:35 Rouleaux Not Reportable 02/14/19 05:35 Not Reportable 02/14/19 05:35 Not Reportable 02/14/19 05:35 Not Reportable 02/14/19 05:35 Not Reportable 02/14/19 05:35 Hem Pathologist Commnt No 02/14/19 05:35 PT 18.1 Sec. (12.2-14.9) H 02/14/19 05:35 INR 1.54 (0.87-1.13) H 02/14/19 05:35 675.75 ng/mlDDU (0-234) H 02/14/19 07:03 POC ABG pH 7.389 (7.35-7.45) 02/14/19 07:26 POC ABG pO2 112 (80-105) H 02/14/19 07:26 POC ABG HCO3 16.6 (22-26 mml/L) 02/14/19 07:26 POC ABG Total CO2 17 (23-27mmol/L) 02/14/19 07:26 POC ABG O2 Sat 98 02/14/19 07:26 POC ABG Base Excess -8 ((-2) - (+3)mmol/L) 02/14/19 07:26 28 % 02/14/19 07:26 Sodium 139 mmol/L (137-145) 02/16/19 05:12 Potassium 4.0 mmol/L (3.6-5.0) 02/16/19 05:12 Chloride 100.1 mmol/L (98-107) 02/16/19 05:12 Carbon Dioxide 24 mmol/L (22-30) 02/16/19 05:12 19 mmol/L 02/16/19 05:12 BUN 22 mg/dL (9-20) H 02/16/19 05:12 1.2 mg/dL (0.8-1.5) 02/16/19 05:12 Estimated GFR > 60 ml/min 02/16/19 05:12 18 % 02/16/19 05:12 Glucose 140 mg/dL (75-100) H 02/16/19 05:12 POC Glucose 194 (70-105) H 02/16/19 12:46 Lactic Acid 1.90 mmol/L (0.7-2.0) 02/14/19 21:35 Calcium 9.0 mg/dL (8.4-10.2) 02/16/19 05:12 Magnesium 1.90 mg/dL (1.7-2.3) 02/14/19 07:03 1.70 mg/dL (0.1-1.2) H 02/15/19 05:39 0.3 mg/dL (0-0.2) H 02/14/19 07:03 0.5 mg/dL 02/14/19 07:03 AST 33 units/L (5-40) 02/15/19 05:39 ALT 28 units/L (7-56) 02/15/19 05:39 91 units/L (35-129) 02/15/19 05:39 176 units/L (55-170) H 02/15/19 05:39 CK-MB (CK-2) 3.0 ng/mL (0.0-4.0) 02/15/19 05:39 CK-MB (CK-2) Rel Index 1.7 (0-4) 02/15/19 05:39 < 0.010 ng/mL (0.00-0.029) 02/15/19 05:39 NT-Pro-B Natriuret Pep 2492 pg/mL (0-900) H 02/14/19 07:03 8.7 g/dL (6.3-8.2) H 02/15/19 05:39 4.1 g/dL (3.9-5) 02/15/19 05:39 0.9 % 02/15/19 05:39 Melody (Yellow) 02/14/19 Unknown Slightly-cloudy (Clear) 02/14/19 Unknown 5.0 (5.0-7.0) 02/14/19 Unknown Ur Specific [place] 1.024 (1.003-1.030) 02/14/19 Unknown 100 mg/dl mg/dL (Negative) 02/14/19 Unknown Neg mg/dL (Negative) 02/14/19 Unknown Neg mg/dL (Negative) 02/14/19 Unknown Neg (Negative) 02/14/19 Unknown Neg (Negative) 02/14/19 Unknown Ur Reducing Substances Not Reportable 02/14/19 Unknown Neg (Negative) 02/14/19 Unknown Not Reportable 02/14/19 Unknown 4.0 mg/dL (<2.0) 02/14/19 Unknown Ur Leukocyte Esterase Sm (Negative) 02/14/19 Unknown 43.0 /HPF (0.0-6.0) H 02/14/19 Unknown 3.0 /HPF (0.0-6.0) 02/14/19 Unknown U Epithel Cells (Auto) 1.0 /HPF (0-13.0) 02/14/19 Unknown 1+ /HPF (Negative) 02/14/19 Unknown Hyaline Casts 51 /LPF 02/14/19 Unknown 3+ /HPF 02/14/19 Unknown Presumptive negative 02/14/19 Unknown Presumptive negative 02/14/19 Unknown Ur Barbiturates Screen Presumptive negative 02/14/19 Unknown Ur Phencyclidine Scrn Presumptive negative 02/14/19 Unknown Ur Amphetamines Screen Presumptive negative 02/14/19 Unknown U Benzodiazepines Scrn Presumptive negative 02/14/19 Unknown Presumptive negative 02/14/19 Unknown U Marijuana (THC) Screen Presumptive negative 02/14/19 Unknown Disclamer 02/14/19 Unknown Active Medications - Current Medications Current Medications: Generic Name Dose Route Start Last Admin Trade Name Freq PRN Reason Stop Dose Admin Allopurinol 100 mg 02/15/19 10:00 02/16/19 09:24 Zyloprim PO 100 mg QDAY JANINE Administration Apixaban 5 mg 02/14/19 22:00 02/16/19 09:24 Eliquis PO 5 mg Q12HR JANINE Administration Protocol Aspirin 81 mg 02/15/19 10:00 02/16/19 09:24 Halfprin Ec PO 81 mg QDAY JANINE Administration Famotidine 20 mg 02/14/19 22:00 02/16/19 09:24 Pepcid PO 20 mg BID JANINE Administration Furosemide 40 mg 02/15/19 06:00 02/16/19 06:31 Lasix IV Not Given 0600,1800 [facility] Piperacillin Sod/Tazobactam Sod 4.5 gm in 100 mls @ 200 mls/hr 02/14/19 14:00 02/16/19 13:19 Zosyn/Ns 4.5gm/100ml IV 200 mls/hr Q8HR JANINE Administration Protocol Insulin Human Lispro 0 unit 02/14/19 22:00 02/16/19 13:17 Humalog SUB-Q Not Given ACHS [facility] Protocol Metoprolol Tartrate 50 mg 02/14/19 22:00 02/16/19 11:00 Lopressor PO Not Given BID JANINE Ondansetron HCl 4 mg 02/16/19 02:10 02/16/19 02:22 Zofran IV 4 mg Q8H PRN Administration Nausea And Vomiting Oxycodone/Acetaminophen 1 tab 02/14/19 21:37 02/14/19 22:18 Percocet 5/325 PO 1 tab Q6H PRN Administration Pain, Moderate (4-6) Spironolactone 25 mg 02/15/19 10:00 02/16/19 11:00 Aldactone PO Not Given QDAY JANINE
--- NOTE | 2019-02-16 15:04 | Consultation ---
History of Present Illness Consult date: 02/16/19 Requesting physician: JULES WHITE Consult reason: atrial fibrillation, congestive heart failure History of present illness: The pt is a 58-year-old male with a past medical history of dilated NICMP, atrial flutter s/p DCCV x 2, HFrEF, DM, obesity. He is followed in our office by Dr. Keyshawn Wade. He presented with c/o SOB and intermittent palpitations for the past several weeks. He also had some BLE swelling which has improved since admission. He believes that his SOB and intermittent palpitations are secondary to his medications (he is on lopressor 50mg BID, aldactone 25mg daily and Eliquis at home). Additionally, he admits that he has not been taking his home Eliquis because he cannot afford it. He denies any chest pain, n/v, diaphoresis, dizziness or syncope. Review of telemetry and ECGs since admission show NSR, no AFib or AFlutter noted on this admission. Of note, pt was discharged from [facility] on 11/11/2018 following treatment for HFrEF and new onset atrial flutter with RVR. We were hesitant to initiate amiodarone at that time due to elevated LFTs. He required JUSTINE guided DCCV with successful conversion to NSR on 11/10/2018 and was discharged home on Eliquis. Pt was hospitalized again at [facility] in 11/2018 following treatment for HFrEF and recurrence of AFlutter RVR. He was initially started on IV amio as his LFTs were normal on admission but amio was later discontinued due to development of hepatic impairment. He underwent DCCV and was converted to SR and discharged home on lopressor and Eliquis, no ACEI/ARB d/t low BPs. Pt was hospitalized at [facility] in 04/2018 where he was initially diagnosed with HF. LHC at that time showed normal coronaries with severe dilated CMP, EF <15%. Echo done 11/03/2018 at [facility] showed EF 15-20%, LV severely dilated, LA mod to severely dilated, RV mod dilated, RV systolic function mod reduced, RA severely dilated, mild to mod MR, RVSP 48mmHg. Past History Past Medical History: atrial fib, diabetes, hypertension, other (cardiomyopathy, gout, mal nutrition) Past Surgical History: No surgical history Social history: lives with family, smoking. denies: alcohol abuse, prescription drug abuse Family history: hypertension Medications and Allergies Allergies Allergy/AdvReac Type Severity Reaction Status Date / Time No Known Allergies Allergy Verified 11/30/18 15:13 Home Medications Medication Instructions Recorded Confirmed Last Taken Type Allopurinol [Zyloprim] 100 mg PO QDAY #30 tablet 02/03/19 02/14/19 02/13/19 Rx Apixaban [Eliquis] 5 mg PO Q12HR #60 tablet 02/03/19 02/14/19 02/13/19 Rx Aspirin EC 81 mg PO QDAY #30 tablet. 02/03/19 02/14/19 02/13/19 Rx Famotidine [Pepcid] 20 mg PO BID #60 tablet 02/03/19 02/14/19 02/13/19 Rx Metoprolol [Lopressor TAB] 50 mg PO BID #60 tablet 02/03/19 02/14/19 02/13/19 Rx Spironolactone [Aldactone] 25 mg PO QDAY #30 tablet 02/03/19 02/14/19 02/13/19 Rx Furosemide [Lasix TAB] 40 mg PO QDAY 02/14/19 02/14/19 02/13/19 History Ranitidine HCl [Heartburn Relief] 75 mg PO PRN 02/14/19 02/14/19 02/13/19 History Active Meds: Active Medications Allopurinol (Zyloprim) 100 mg PO QDAY [facility] Last Admin: 02/16/19 09:24 Dose: 100 mg Documented by: Apixaban (Eliquis) 5 mg PO Q12HR [facility]; Protocol Last Admin: 02/16/19 09:24 Dose: 5 mg Documented by: Aspirin (Halfprin Ec) 81 mg PO QDAY [facility] Last Admin: 02/16/19 09:24 Dose: 81 mg Documented by: Famotidine (Pepcid) 20 mg PO BID [facility] Last Admin: 02/16/19 09:24 Dose: 20 mg Documented by: Furosemide (Lasix) 40 mg IV 0600,1800 [facility] Last Admin: 02/16/19 06:31 Dose: Not Given Documented by: Piperacillin Sod/Tazobactam Sod (Zosyn/Ns 4.5gm/100ml) 4.5 gm in 100 mls @ 200 mls/hr IV Q8HR [facility]; Protocol Last Admin: 02/16/19 13:19 Dose: 200 mls/hr Documented by: Insulin Human Lispro (Humalog) 0 unit SUB-Q ACHS [facility]; Protocol Last Admin: 02/16/19 13:17 Dose: Not Given Documented by: Metoprolol Tartrate (Lopressor) 50 mg PO BID [facility] Last Admin: 02/16/19 11:00 Dose: Not Given Documented by: Ondansetron HCl (Zofran) 4 mg IV Q8H PRN PRN Reason: Nausea And Vomiting Last Admin: 02/16/19 02:22 Dose: 4 mg Documented by: Oxycodone/Acetaminophen (Percocet 5/325) 1 tab PO Q6H PRN PRN Reason: Pain, Moderate (4-6) Last Admin: 02/14/19 22:18 Dose: 1 tab Documented by: Spironolactone (Aldactone) 25 mg PO QDAY [facility] Last Admin: 02/16/19 11:00 Dose: Not Given Documented by: Review of Systems Constitutional: no weight loss, no weight gain, no fever, no chills, no sweats Ears, nose, mouth and throat: no ear pain, no nose pain, no sinus pressure, no sinus pain Cardiovascular: shortness of breath, dyspnea on exertion, leg edema, decreased exercise tolerance, no chest pain, no orthopnea, no rapid/irregular heart beat, no edema, no syncope, no lightheadedness, no high blood pressure Respiratory: shortness of breath, dyspnea on exertion, no cough, no congestion, no wheezing Gastrointestinal: no abdominal pain, no nausea, no vomiting, no diarrhea, no constipation, no change in bowel habits Genitourinary Male: no dysuria, no hematuria, no flank pain, no discharge, no urinary frequency, no urinary hesitancy Musculoskeletal: no neck stiffness, no neck pain, no shooting arm pain, no arm numbness/tingling, no low back pain, no shooting leg pain Integumentary: no rash, no pruritis, no redness, no sores, no wounds Neurological: no head injury, no paralysis, no weakness, no parathesias, no numbness, no tingling, no seizures, no syncope Psychiatric: no anxiety Endocrine: no cold intolerance, no heat intolerance Hematologic/Lymphatic: no easy bruising, no easy bleeding Allergic/Immunologic: no urticaria, no wheezing Physical Examination Vital Signs Temp Pulse Resp BP Pulse Ox 98.4 F 87 22 107/97 97 02/14/19 05:06 02/14/19 05:06 02/14/19 05:06 02/14/19 05:06 02/14/19 05:06 General appearance: no acute distress HEENT: Positive: PERRL, Normocephaly, Mucus Membranes Moist Neck: Positive: neck supple, trachea midline Cardiac: Positive: Reg Rate and Rhythm, S1/S2 Lungs: Positive: Decreased Breath Sounds Neuro: Positive: Grossly Intact Abdomen: Negative: Tender Skin: Negative: Rash Musculoskeletal: No Pain Extremities: Present: edema (trace BLE) Results 02/16/19 05:12 02/16/19 05:12 CBC 02/16/19 Range/Units 05:12 WBC 10.1 (4.5-11.0) K/mm3 RBC 5.09 H (3.65-5.03) M/mm3 Hgb 12.5 (11.8-15.2) gm/dl Hct 39.5 (35.5-45.6) % Plt Count 263 (140-440) K/mm3 Lymph # 2.2 (1.2-5.4) K/mm3 [place] # 0.9 H (0.0-0.8) K/mm3 Eos # 0.2 (0.0-0.4) K/mm3 Baso # 0.0 (0.0-0.1) K/mm3 Comprehensive Metabolic Panel 02/16/19 Range/Units 05:12 Sodium 139 (137-145) mmol/L Potassium 4.0 (3.6-5.0) mmol/L Chloride 100.1 (98-107) mmol/L Carbon Dioxide 24 (22-30) mmol/L BUN 22 H (9-20) mg/dL Creatinine 1.2 (0.8-1.5) mg/dL Glucose 140 H (75-100) mg/dL Calcium 9.0 (8.4-10.2) mg/dL - Imaging and Cardiology Echo: report reviewed ( 11/03/2018 at [facility] showed EF 15-20%, LV severely dilated, LA mod to severely dilated, RV mod dilated, RV systolic function mod reduced, RA severely dilated, mild to mod MR, RVSP 48mmHg. ) EKG: report reviewed, image reviewed EKG interpretations - Telemetry EKG Rhythm: Sinus Rhythm - EKG Sinus rhythms and dysrhythmias: sinus rhythm Assessment and Plan Will reduce lopressor dosage to 25mg BID and observe response. Cont IV lasix. No ACEI/ARB due to borderline hypotension. Cont Eliquis if pt is agreeable - he is having issues affording this medication as OP and is considering converting to a different NOAC. Pt has been provided paperwork to fill out to obtain Eliquis at a discounted roman through a PCP or our office but he has yet to bring this paperwork to the office. The patient has been seen in conjunction with Dr. Morrissey who agrees with the assessment and plan of care. - Patient Problems (1) Acute on chronic HFrEF (heart failure with reduced ejection fraction) Current Visit: Yes Status: Acute (2) Nonischemic dilated cardiomyopathy Current Visit: Yes Status: Chronic (3) History of atrial flutter Current Visit: Yes Status: Chronic (4) History of cardioversion Current Visit: Yes Status: Chronic
[2019-02-16] MEDS ORDERED: ALDACTONE PO SCH (16:51)
[2019-02-17] MEDS: ZOSYN/NS 4.5GM/100ML 4.5 GM/100 ML VIAL IV SCH (05:59)
[2019-02-17] MEDS: HumaLOG SUB-Q SCH (08:23)
[2019-02-17] MEDS: PEPCID PO SCH (09:56)
[2019-02-17] MEDS: LOPRESSOR PO SCH ×2 (09:56→10:12)
[2019-02-17] MEDS: ELIQUIS PO SCH (09:57)
[2019-02-17] MEDS: ZESTRIL PO SCH ×2 (09:57→10:13)
[2019-02-17] MEDS ORDERED: LASIX IV SCH (10:00)
[2019-02-17] MEDS: PERCOCET 5/325 PO PRN (10:07)
[2019-02-17 10:13] VITALS: BP 128/96
[2019-02-17] MEDS: ZYLOPRIM PO SCH (10:24)
--- NOTE | 2019-02-17 11:17 | Discharge Summary ---
Providers - Providers Date of Admission: 02/16/19 14:40 Date of discharge: 02/17/19 Attending physician: GENNY BROWN 02/16/19 14:50 Consult to Physician [CONS] Routine Comment: Consulting Provider: INDIRA MASON Physician Instructions: Reason For Exam: acute on chronic CHF/A. fib/noncompliance Primary care physician: [facility], Hospitalization Reason for admission: afib, chf Condition: Stable Hospital course: The pt is a 58-year-old male with a past medical history of dilated NICMP, atrial flutter s/p DCCV x 2, HFrEF, DM, obesity who presented with c/o SOB and intermittent palpitations for the past several weeks. He also had some BLE swelling which has improved since admission. He believes that his SOB and intermittent palpitations are secondary to his medications (he is on lopressor 50mg BID, aldactone 25mg daily and Eliquis at home). Additionally, he admits th at he has not been taking his home Eliquis because he cannot afford it. Review of telemetry and ECGs since admission show NSR, no AFib or AFlutter noted on this admission. Cardiology saw the patient in consultation and opted to decrease lopressor dosage to 25mg BID and observe response. No ACEI/ARB due to borderline hypotension. Cardiology will continue Eliquis as pt is agreeable - he is having issues affording this medication as OP and is considering converting to a different NOAC. Pt has been provided paperwork to fill out to obtain Eliquis at a discounted roman through a PCP or [facility] office. Dedicated discharge time 33 minutes. Disposition: TO HOME OR SELFCARE Time spent for discharge: 33 - Discharge Diagnoses (1) Acute on chronic HFrEF (heart failure with reduced ejection fraction) Status: Acute (2) Cardiomyopathy Status: Acute Qualifiers: Cardiomyopathy type: unspecified Qualified Code(s): I42.9 - Cardiomyopathy, unspecified (3) History of atrial flutter Status: Chronic (4) History of cardioversion Status: Chronic (5) Nonischemic dilated cardiomyopathy Status: Chronic Core Measure Documentation - Palliative Care Palliative Care/ Comfort Measures: Not Applicable - Core Measures Any of the following diagnoses?: heart failure - Heart Failure Discharge Requirements DAMIEN/ARB for LVSD if EF <40%: No Reason for no DAMIEN/ARB: Hypotension Beta sampson at discharge: Yes Exam - Constitutional Vitals: Temp Pulse Resp BP Pulse Ox 97.8 F 86 20 128/96 97 02/17/19 04:29 02/17/19 10:00 02/17/19 10:07 02/17/19 04:28 02/17/19 10:00 General appearance: Present: no acute distress, well-nourished - EENT Eyes: Present: PERRL ENT: hearing intact, clear oral mucosa - Neck Neck: Present: supple, normal ROM - Respiratory Respiratory effort: normal Respiratory: bilateral: CTA - Cardiovascular Heart Sounds: Present: S1 & S2. Absent: rub, click - Extremities Extremities: pulses symmetrical, No edema Peripheral Pulses: within normal limits - Abdominal General gastrointestinal: Present: soft, non-tender, non-distended, normal bowel sounds Male genitourinary: Present: normal - Integumentary Integumentary: Present: clear, warm, dry - Musculoskeletal Musculoskeletal: gait normal, strength equal bilaterally - Psychiatric Psychiatric: appropriate mood/affect, intact judgment & insight - Neurologic Neurologic: CNII-XII intact, moves all extremities Plan Activity: advance as tolerated Weight Bearing Status: Weight Bear as Tolerated Diet: low fat, low cholesterol, low salt Follow up with: [facility] LEIGHANN [Primary Care Provider] - 3-5 Days FRED RICHMOND MD [Staff Physician] - 7 Days Prescriptions: Spironolactone [Aldactone] 12.5 mg PO QDAY #30 tablet Apixaban [Eliquis] 5 mg PO Q12HR #60 tablet Ranitidine HCl [Heartburn Relief] 75 mg PO PRN #30 tablet Furosemide [Lasix TAB] 40 mg PO QDAY #30 tablet Metoprolol [Lopressor TAB] 12.5 mg PO BID #60 tablet Famotidine [Pepcid] 20 mg PO BID #60 tablet oxyCODONE /ACETAMINOPHEN [Percocet 5/325 mg] 1 tab PO Q6H PRN #8 tablet PRN Reason: Pain, Moderate (4-6) Lisinopril [Zestril TAB] 2.5 mg PO QDAY #30 tablet Allopurinol [Zyloprim] 100 mg PO QDAY #30 tablet
--- NOTE | 2019-02-17 12:01 | Progress Note ---
Assessment and Plan Currently stable cardiac status. Pt may discharge home on home cardiac regimen. BPs improved - resume home ACEI. Cont Eliquis 5mg BID - pt states he is having issues affording this medication as OP. However, he has been provided paperwork to fill out to obtain Eliquis at a discounted roman through a PCP or our office and states he will bring this paperwork by our office tomorrow. He would like to continue Eliquis at this time. Plan to readdress AICD candidacy as OP. Follow up in our [place] office with Dr. Keyshawn Wade on 02/22/2019 @ 2:30PM. The patient has been seen in conjunction with Dr. Morrissey who agrees with the assessment and plan of care. - Patient Problems (1) Acute on chronic HFrEF (heart failure with reduced ejection fraction) Current Visit: Yes Status: Acute (2) Nonischemic dilated cardiomyopathy Current Visit: Yes Status: Chronic (3) History of atrial flutter Current Visit: Yes Status: Chronic (4) History of cardioversion Current Visit: Yes Status: Chronic Subjective Date of service: 02/17/19 Principal diagnosis: HF Interval history: pt resting in bed, no current complaints. remains in NSR with no acute events overnight. Objective Last Vital Signs Temp 97.8 F 02/17/19 04:29 Pulse 86 02/17/19 10:00 Resp 20 02/17/19 10:07 BP 128/96 02/17/19 04:28 Pulse Ox 97 02/17/19 10:00 - Physical Examination General: No Apparent Distress HEENT: Positive: PERRL, Normocephaly, Mucus Membranes Moist Neck: Positive: neck supple, trachea midline Cardiac: Positive: Reg Rate and Rhythm, S1/S2 Lungs: Positive: Decreased Breath Sounds Neuro: Positive: Grossly Intact Abdomen: Negative: Tender Skin: Negative: Rash Musculoskeletal: No Pain Extremities: Absent: edema - Imaging and Cardiology EKG: report reviewed, image reviewed Echo: report reviewed ( 11/03/2018 at [facility] showed EF 15-20%, LV severely dilated, LA mod to severely dilated, RV mod dilated, RV systolic function mod reduced, RA severely dilated, mild to mod MR, RVSP 48mmHg. ) - Telemetry EKG Rhythm: Sinus Rhythm - EKG Sinus rhythms and dysrhythmias: sinus rhythm
== END 2019-02-17 13:45 | disposition home or self-care (01) | DRG 871 ==
LOC: ED 04:59 → 4A 08:21 → OBSVTOIN 02-16 14:40
PROVIDERS: ADMIT Internal Medicine; ATTEND Hospitalist
PROC: 4A033R1 Measurement of Arterial Saturation, Peripheral, Percutaneous Approach (ICD-10-PCS; principal; 2019-02-14)
DX: A41.9 Sepsis, unspecified organism (principal); I50.23 Acute on chronic systolic (congestive) heart failure; N39.0 Urinary tract infection, site not specified; I42.0 Dilated cardiomyopathy; I13.0 Hypertensive heart and chronic kidney disease with heart failure and stage 1 through stage 4 chronic kidney disease, or unspecified chronic kidney disease; E46 Unspecified protein-calorie malnutrition; R79.89 Other specified abnormal findings of blood chemistry; E66.9 Obesity, unspecified; M10.9 Gout, unspecified; I48.91 Unspecified atrial fibrillation; F17.200 Nicotine dependence, unspecified, uncomplicated; E11.22 Type 2 diabetes mellitus with diabetic chronic kidney disease; N18.9 Chronic kidney disease, unspecified; G43.909 Migraine, unspecified, not intractable, without status migrainosus; Z68.39 Body mass index [BMI] 39.0-39.9, adult; Z82.49 Family history of ischemic heart disease and other diseases of the circulatory system; Z79.899 Other long term (current) drug therapy; Z79.82 Long term (current) use of aspirin; Z71.6 Tobacco abuse counseling; Z91.14 Patient's other noncompliance with medication regimen
CPT/HCPCS: 36415; 71045; 78582; 80048; 80053; 80076; 80307; 81001; 82140; 82550; 82553; 82803; 82962; 83735; 83880; 84484; 85007; 85025; 85379; 85610; 87040; 87086; 93005; 93010; 93970; G0378; A9540; A9558; J1815; J1940; J2185; J2405; J2543; J3370; J7040

== ENCOUNTER 2019-02-28 01:32 | Observation (INO) | payer OTHER ==
[2019-02-28] MEDS ORDERED: SUBLIMAZE IV ONE (02:07)
[2019-02-28] MEDS ORDERED: ZOFRAN IV ONE (02:07)
[2019-02-28] MEDS ORDERED: LASIX IV ONE (02:07)
--- NOTE | 2019-02-28 02:13 | Emergency Department Report ---
HPI - General Chief Complaint: Chest Pain Time Seen by Provider: 02/28/19 01:53 - HPI HPI: Room 26 The patient is a 58-year-old male presenting with a chief complaint of chest pain shortness of breath. Patient states for the past 2 days she's had inter mittent substernal chest pain described as throbbing associated with shortness of breath, nausea/vomiting and slight diaphoresis. Patient was recently admitted and discharged from this hospital last week for chest pain and shortness of breath. The patient states since his discharge she's been taking his Lasix every other day because he has been running out. Patient is occasional cough for one day and is occasionally productive of white sputum. Patient denies fever. Patient currently gets his chest pain score of 8-9/10 Location: [See above] Duration: [See above] Quality: [See above] Severity: [See above] Modifying factors: [see above] Context: [see above] Mode of transportation: [not driving] ED Past Medical Hx - Past Medical History Hx Hypertension: Yes Hx Congestive Heart Failure: Yes Hx Diabetes: Yes Hx Arthritis: Yes (gout) Hx Headaches / Migraines: Yes Additional medical history: AFib gout back and left leg pain. OBESITY - Family History Family history: no significant - Social History Smoking Status: Never Smoker Substance Use Type: None - Medications Home Medications: Home Medications Medication Instructions Recorded Confirmed Last Taken Type Aspirin EC 81 mg PO QDAY #30 tablet. 02/03/19 02/14/19 02/13/19 Rx Allopurinol [Zyloprim] 100 mg PO QDAY #30 tablet 02/17/19 Unknown Rx Apixaban [Eliquis] 5 mg PO Q12HR #60 tablet 02/17/19 Unknown Rx Famotidine [Pepcid] 20 mg PO BID #60 tablet 02/17/19 Unknown Rx Furosemide [Lasix TAB] 40 mg PO QDAY #30 tablet 02/17/19 Unknown Rx Lisinopril [Zestril TAB] 2.5 mg PO QDAY #30 tablet 02/17/19 Unknown Rx Metoprolol [Lopressor TAB] 12.5 mg PO BID #60 tablet 02/17/19 Unknown Rx Ranitidine HCl [Heartburn Relief] 75 mg PO PRN #30 tablet 02/17/19 Unknown Rx Spironolactone [Aldactone] 12.5 mg PO QDAY #30 tablet 02/17/19 Unknown Rx oxyCODONE /ACETAMINOPHEN [Percocet 1 tab PO Q6H PRN #8 tablet 02/17/19 Unknown Rx 5/325 mg] ED Review of Systems ROS: Stated complaint: CP/ABD PAIN Other details as noted in HPI Constitutional: diaphoresis Eyes: denies: eye pain ENT: denies: throat pain Respiratory: cough, shortness of breath Cardiovascular: chest pain Endocrine: no symptoms reported Gastrointestinal: nausea, vomiting Musculoskeletal: denies: back pain Neurological: denies: headache Physical Exam - Physical Exam Vital Signs: Vital Signs 02/28/19 01:44 Temperature 98.4 F Pulse Rate 102 H Respiratory 20 Rate Blood Pressure 130/95 [Left] O2 Sat by Pulse 99 Oximetry Physical Exam: GENERAL: The patient is well-developed well-nourished male lying on stretcher not appearing to be in acute distress. [] HEENT: Normocephalic. Atraumatic. Extraocular motions are intact. Patient has moist mucous membranes. NECK: Supple. Trachea midline CHEST/LUNGS: Clear to auscultation. There is no respiratory distress noted. HEART/CARDIOVASCULAR: Regular. There is tachycardia. There is no gallop rub or murmur. ABDOMEN: Abdomen is soft, nontender. Patient has normal bowel sounds. There is no abdominal distention. SKIN: There is no rash. There is 2+ bilateral lower extremity pitting edema. There is no diaphoresis. NEURO: The patient is awake, alert, and oriented. The patient is cooperative. The patient has normal speech MUSCULOSKELETAL: There is no evidence of acute injury. ED Course Vital Signs 02/28/19 01:44 Temperature 98.4 F Pulse Rate 102 H Respiratory 20 Rate Blood Pressure 130/95 [Left] O2 Sat by Pulse 99 Oximetry ED Medical Decision Making - Lab Data Laboratory Tests 02/28/19 02/28/19 02/28/19 02:22 02:22 02:22 WBC 9.2 RBC 4.90 Hgb 12.0 Hct 37.2 MCV 76 L MCH 25 L MCHC 32 RDW 17.7 H Plt Count 250 Lymph % (Auto) 25.0 [place] % (Auto) 8.4 H Eos % (Auto) 1.0 Baso % (Auto) 1.0 Lymph # 2.3 [place] # 0.8 Eos # 0.1 Baso # 0.1 Seg Neutrophils % 64.6 Seg Neutrophils # 6.0 PT 19.4 H INR 1.68 H APTT 32.6 Sodium 139 Potassium 4.4 Chloride 105.1 Carbon Dioxide 23 Anion Gap 15 BUN 14 Creatinine 1.0 Estimated GFR > 60 BUN/Creatinine Ratio 14 Glucose 204 H Calcium 9.4 Total Bilirubin 1.20 AST 21 ALT 20 Alkaline Phosphatase 96 Total Creatine Kinase 102 CK-MB (CK-2) 2.5 CK-MB (CK-2) Rel Index 2.4 Troponin T < 0.010 NT-Pro-B Natriuret Pep 2631 H Total Protein 8.1 Albumin 4.0 Albumin/Globulin Ratio 1.0 - EKG Data -: EKG Interpreted by Me EKG shows normal: sinus rhythm Rate: tachycardia (104 bpm) - EKG Data When compared to previous EKG there are: no significant change Interpretation: unchanged when compared t (02/14/2019) - Radiology Data Radiology results: report reviewed (chest x-ray), image reviewed (chest x-ray) interpreted by me: Chest [id number]. No focal infiltrates, no pneumothorax [facility] [address] [place] [address] XRay Report Signed Patient: FARHAT MAURO JR MR#: [id number] : 1960 Acct:[id number] Age/Sex: 58 / M ADM Date: 02/28/19 Loc: ED Attending Dr: Ordering Physician: RANJAN BROCK MD Date of Service: 02/28/19 Procedure(s): XR chest 1V ap Accession Number(s): [id number] cc: RANJAN BROCK MD Fluoro Time In Minutes: . CHEST 1 VIEW INDICATION / CLINICAL INFORMATION: chest pain, shortness of breath. COMPARISON: 02/14/2019 FINDINGS: SUPPORT DEVICES: None. HEART / MEDIASTINUM: Slightly enlarged but stable LUNGS / PLEURA: No significant pulmonary or pleural abnormality. No pneumothorax. ADDITIONAL FINDINGS: No significant additional findings. IMPRESSION: 1. No acute findings. Signer Name: Ritchie Sanders MD Signed: 02/28/2019 2:43 AM Workstation Name: [id number] Transcribed By: Dictated By: Ritchie Sanders MD Electronically Authenticated By: Ritchie Sanders MD Signed Date/Time: 02/28/19242 DD/ 2 TD/TT: - Differential Diagnosis ACS, CHF exacerbation, GERD, pericarditis Critical care attestation.: If time is entered above; I have spent that time in minutes in the direct care of this critically ill patient, excluding procedure time. ED Disposition Clinical Impression: Chest pain, Shortness of breath, CHF exacerbation Disposition: OP ADMIT IP TO THIS HOSP Is pt being admited?: Yes Does the pt Need Aspirin: Yes Condition: Fair Instructions: Chest Pain (ED) Time of Disposition: 03:15 (Hosptialist paged (Elza Kapadia))
[2019-02-28 02:46] LABS: Basophils # (Auto) 0.1 K/mm3 (0.0-0.1); Eosinophils # (Auto) 0.1 K/mm3 (0.0-0.4); Hematocrit 37.2 % (35.5-45.6); Lymphocytes # (Auto) 2.3 K/mm3 (1.2-5.4); Mean Corpuscular HGB Conc 32 % (32-34); Mean Corpuscular Volume 76 fl (84-94); Monocytes # (Auto) 0.8 K/mm3 (0.0-0.8); Monocytes % (Auto) 8.4 % (0.0-7.3); Platelet Count 250 K/mm3 (140-440); Red Cell Distribution Width 17.7 % (13.2-15.2)
--- NOTE | 2019-02-28 02:48 | XRay Report ---
. CHEST 1 VIEW INDICATION / CLINICAL INFORMATION: chest pain, shortness of breath. COMPARISON: 02/14/2019 FINDINGS: SUPPORT DEVICES: None. HEART / MEDIASTINUM: Slightly enlarged but stable LUNGS / PLEURA: No significant pulmonary or pleural abnormality. No pneumothorax. ADDITIONAL FINDINGS: No significant additional findings. IMPRESSION: 1. No acute findings. Signer Name: Ritchie Sanders MD Signed: 02/28/2019 2:43 AM Workstation Name: [id number]
[2019-02-28 02:56] LABS: INR 1.68 (0.87-1.13)
[2019-02-28 02:57] LABS: Partial Thromboplastin Time 32.6 Sec. (24.2-36.6)
[2019-02-28 03:04] LABS: Creatine Kinase MB 2.5 ng/mL (0.0-4.0)
[2019-02-28 03:05] LABS: Alanine Aminotransferase 20 units/L (7-56); BUN/Creatinine Ratio 14; Blood Urea Nitrogen 14 mg/dL (9-20); Calcium 9.4 mg/dL (8.4-10.2); Hemolysis Index 4
[2019-02-28] MEDS ORDERED: ASPIRIN PO ONE (03:16)
[2019-02-28] MEDS ORDERED: NITROSTAT SL PRN (04:00)
[2019-02-28] MEDS ORDERED: PROVENTIL IH PRN (04:08)
[2019-02-28] MEDS ORDERED: RANITIDINE HCL 75 MG PO SCH (04:15)
--- NOTE | 2019-02-28 04:32 | History and Physical Report ---
History of Present Illness Date of examination: 02/28/19 History of present illness: 58-year-old man with a history of hypertension, diabetes, gout, coronary artery disease, CHF, A. fib flutter, comes to the ER with complains of chest pain in the epigastric area which he describes someone standing on his chest, intensity 5/10, intermittent, no radiation, cannot identify exacerbating or relieving with sitting up. Admits to nausea vomiting, shortness of breath, no diaphoresis palpitation. He was just discharged from the hospital on 02/17, states he was taken off eliquis but his PMD put him back on it, he started two days ago. Per chart review, he had a cardiac cath at [facility] in 2018 which showed normal coronaries. Review of systems Constitutional: no weight loss, chills, fever Ears, eyes, nose, mouth and throat: no nasal congestion, no nasal discharge, no sinus pressure, no vision change, no red eye. Neck: No neck pain or rigidity. Cardiovascular: no palpitations Respiratory: no cough, +shortness of breath Gastrointestinal: no hematochezia, abdominal pain Genitourinary : no frequency , no hematuria Musculoskeletal: no joint swelling or muscle ache Integumentary: no rash, no pruritis Neurological: no parathesias, no focal weakness Endocrine: no cold or heat intolerance, no polyuria or polydipsia Hematologic/Lymphatic: no easy bruising, no easy bleeding, no gland swelling Allergic/Immunologic: no urticaria, no angioedema. PAST MEDICAL HISTORY:hypertension, diabetes, gout, coronary artery disease, CHF, A. fib flutter PAST SURGICAL HISTORY: None SOCIAL HISTORY: Denies alcohol, drugs, tobacco FAMILY HISTORY: Hypertension Medications and Allergies Allergies Allergy/AdvReac Type Severity Reaction Status Date / Time No Known Allergies Allergy Verified 11/30/18 15:13 Home Medications Medication Instructions Recorded Confirmed Last Taken Type Aspirin EC 81 mg PO QDAY #30 tablet. 02/03/19 02/28/19 02/27/19 Rx Allopurinol [Zyloprim] 100 mg PO QDAY #30 tablet 02/17/19 02/28/19 02/27/19 Rx Apixaban [Eliquis] 5 mg PO Q12HR #60 tablet 02/17/19 02/28/19 02/27/19 Rx Famotidine [Pepcid] 20 mg PO BID #60 tablet 02/17/19 02/28/19 02/27/19 Rx Furosemide [Lasix TAB] 40 mg PO QDAY #30 tablet 02/17/19 02/28/19 02/28/19 Rx Lisinopril [Zestril TAB] 2.5 mg PO QDAY #30 tablet 02/17/19 02/28/19 02/27/19 Rx Metoprolol [Lopressor TAB] 12.5 mg PO BID #60 tablet 02/17/19 02/28/19 02/27/19 Rx Spironolactone [Aldactone] 12.5 mg PO QDAY #30 tablet 02/17/19 02/28/19 02/27/19 Rx oxyCODONE /ACETAMINOPHEN [Percocet 1 tab PO Q6H PRN #8 tablet 02/17/19 02/28/19 02/27/19 Rx 5/325 mg] Active Meds: Active Medications Albuterol (Proventil) 2.5 mg IH Q4HRT PRN PRN Reason: Shortness Of Breath Allopurinol (Zyloprim) 100 mg PO QDAY JANINE Apixaban (Eliquis) 5 mg PO Q12HR JANINE; Protocol Aspirin (Halfprin Ec) 81 mg PO QDAY JANINE Famotidine (Pepcid) 20 mg PO BID JANINE Furosemide (Lasix) 40 mg IV BID@0600,1800 JANINE Metoprolol Tartrate (Lopressor) 12.5 mg PO BID JANINE Nitroglycerin (Nitrostat) 0.4 mg SL .Q5MIN PRN PRN Reason: Chest Pain Exam - Physical Exam Narrative exam: General Apperance: The patient lying in bed, breathing comfortable HEENT: Normocephalic, atraumatic. Pupils equally round and reactive to light, EOMI, no sclericterus or JVD or thyromegaly or nodule. , no carotid bruit, mucous membranes moist, no exudate or erythema Heart: S1-S2, irregular is rhythm Lungs: Clear to auscultation bilaterally, breathing comfortable Abdomen: Positive bowel sounds, soft, nontender, nondistended, no organomegaly Extremities: No edema cyanosis clubbing Skin: no rash, nodule, warm and dry Neuro: cranial nerves 2-12 intact, speech is fluent, motor/sensory intact - Constitutional Vitals: Temp Pulse Resp BP Pulse Ox 98.4 F 94 H 18 138/86 95 02/28/19 01:44 02/28/19 03:38 02/28/19 03:38 02/28/19 03:38 02/28/19 03:38 Results - Labs CBC & Chem 7: 02/28/19 02:22 02/28/19 02:22 Labs: Abnormal lab results 02/28/19 02/28/19 02/28/19 Range/Units 02:22 02:22 02:22 MCV 76 L (84-94) fl MCH 25 L (28-32) pg RDW 17.7 H (13.2-15.2) % [place] % (Auto) 8.4 H (0.0-7.3) % PT 19.4 H (12.2-14.9) Sec. INR 1.68 H (0.87-1.13) Glucose 204 H (75-100) mg/dL NT-Pro-B Natriuret Pep 2631 H (0-900) pg/mL - Imaging and Cardiology EKG: image reviewed Chest x-ray: report reviewed Assessment and Plan Assessment Chest pain Hypertension Diabetes type 2 CHF, stable Aflutter Coronary artery disease plan Admit to medicine Check cardiac enzymes, consult cardiology Check fingersticks, initiate insulin sliding scale Continue appropriate outpatient medications.
[2019-02-28] MEDS ORDERED: ZOFRAN IV PRN (04:43)
[2019-02-28] MEDS ORDERED: PERCOCET 5/325 PO PRN (04:43)
[2019-02-28] MEDS ORDERED: SODIUM CHLORIDE FLUSH SYRINGE 10 ML IV PRN (04:43)
[2019-02-28] MEDS ORDERED: TYLENOL PO PRN (04:43)
[2019-02-28] MEDS ORDERED: D50W (25GM) Syringe IV PRN (04:43)
[2019-02-28] MEDS ORDERED: ASPIRIN ONE (05:52)
[2019-02-28] MEDS ORDERED: LASIX IV SCH (06:00)
[2019-02-28 06:15] LABS: Creatine Kinase MB 2.5 ng/mL (0.0-4.0)
[2019-02-28] MEDS: HumaLOG SUB-Q SCH ×4 (07:12→23:23)
[2019-02-28] MEDS: ALDACTONE PO SCH (09:53)
[2019-02-28] MEDS: LOPRESSOR PO SCH ×2 (09:54→23:24)
[2019-02-28] MEDS: ELIQUIS PO SCH ×2 (09:56→23:24)
[2019-02-28] MEDS: PROTONIX PO SCH ×2 (09:56→23:24)
[2019-02-28] MEDS: ZESTRIL PO SCH (09:57)
[2019-02-28] MEDS: ZYLOPRIM PO SCH (09:57)
[2019-02-28] MEDS: SODIUM CHLORIDE FLUSH SYRINGE 10 ML IV SCH ×2 (09:59→23:25)
[2019-02-28] MEDS ORDERED: PEPCID PO SCH (10:00)
[2019-02-28] MEDS ORDERED: LASIX PO SCH (10:00)
[2019-02-28] MEDS ORDERED: HALFPRIN EC PO SCH (10:00)
--- NOTE | 2019-02-28 12:14 | Consultation ---
History of Present Illness Consult date: 02/28/19 Requesting physician: MARCUS FERNANDEZ Consult reason: chest pain History of present illness: The pt is a 58-year-old male with a past medical history of dilated NICMP, atrial flutter s/p DCCV x 2, anticoagulated on Eliquis, HFrEF, DM, obesity, noncompliance. He is followed in our office by Dr. Keyshawn Wade. He presented with c/o SOB and intermittent palpitations since last night. He believes that his SOB and intermittent palpitations are secondary to Eliquis. He recently missed one week of Eliquis due to financial issues (he is now approved to get 1 year of Eliquis for free). He was able to refill his Eliquis prescription on Thursday and resumed this medication on Thursday night. He noted the development of his symptoms after he restarted Eliquis on Thursday evening. He denies any chest pain, n/v, diaphoresis, dizziness or syncope. Review of telemetry and ECGs since admission show NSR, no AFib or AFlutter noted on this admission. Of note, pt was discharged from [facility] on 11/11/2018 following treatment for HFrEF and new onset atrial flutter with RVR. We were hesitant to initiate amiodarone at that time due to elevated LFTs. He required JUSTINE guided DCCV with successful conversion to NSR on 11/10/2018 and was discharged home on Eliquis. Pt was hospitalized again at [facility] in 11/2018 following treatment for HFrEF and recurrence of AFlutter RVR. He was initially started on IV amio as his LFTs were normal on admission but amio was later discontinued due to development of hepatic impairment. He underwent DCCV and was converted to SR and discharged home on lopressor and Eliquis, no ACEI/ARB d/t low BPs. Pt was hospitalized at [facility] in 04/2018 where he was initially diagnosed with HF. LHC at that time showed normal coronaries with severe dilated CMP, EF <15%. Echo done 11/03/2018 at [facility] showed EF 15-20%, LV severely dilated, LA mod to severely dilated, RV mod dilated, RV systolic function mod reduced, RA severely dilated, mild to mod MR, RVSP 48mmHg. Past History Past Medical History: other (as per HPI) Medications and Allergies Allergies Allergy/AdvReac Type Severity Reaction Status Date / Time No Known Allergies Allergy Verified 11/30/18 15:13 Home Medications Medication Instructions Recorded Confirmed Last Taken Type Aspirin EC 81 mg PO QDAY #30 tablet. 02/03/19 02/28/19 02/27/19 Rx Allopurinol [Zyloprim] 100 mg PO QDAY #30 tablet 02/17/19 02/28/19 02/27/19 Rx Apixaban [Eliquis] 5 mg PO Q12HR #60 tablet 02/17/19 02/28/19 02/27/19 Rx Famotidine [Pepcid] 20 mg PO BID #60 tablet 02/17/19 02/28/19 02/27/19 Rx Furosemide [Lasix TAB] 40 mg PO QDAY #30 tablet 02/17/19 02/28/19 02/28/19 Rx Lisinopril [Zestril TAB] 2.5 mg PO QDAY #30 tablet 02/17/19 02/28/19 02/27/19 Rx Metoprolol [Lopressor TAB] 12.5 mg PO BID #60 tablet 02/17/19 02/28/19 02/27/19 Rx Spironolactone [Aldactone] 12.5 mg PO QDAY #30 tablet 02/17/19 02/28/19 02/27/19 Rx oxyCODONE /ACETAMINOPHEN [Percocet 1 tab PO Q6H PRN #8 tablet 02/17/19 02/28/19 02/27/19 Rx 5/325 mg] Active Meds: Active Medications Acetaminophen (Tylenol) 650 mg PO Q4H PRN PRN Reason: Pain MILD(1-3)/Fever >100.5/[place] Albuterol (Proventil) 2.5 mg IH Q4HRT PRN PRN Reason: Shortness Of Breath Allopurinol (Zyloprim) 100 mg PO QDAY [facility] Last Admin: 02/28/19 09:57 Dose: Not Given Documented by: Apixaban (Eliquis) 5 mg PO Q12HR [facility]; Protocol Last Admin: 02/28/19 09:56 Dose: 5 mg Documented by: Dextrose (D50w (25gm) Syringe) 50 ml IV PRN PRN PRN Reason: Hypoglycemia Furosemide (Lasix) 40 mg PO QDAY [facility] Last Admin: 02/28/19 09:55 Dose: 40 mg Documented by: Insulin Human Lispro (Humalog) 0 unit SUB-Q ACHS [facility]; Protocol Last Admin: 02/28/19 07:12 Dose: 3 unit Documented by: Lisinopril (Zestril) 2.5 mg PO QDAY [facility] Last Admin: 02/28/19 09:57 Dose: 2.5 mg Documented by: Metoprolol Tartrate (Lopressor) 12.5 mg PO BID [facility] Last Admin: 02/28/19 09:54 Dose: 12.5 mg Documented by: Nitroglycerin (Nitrostat) 0.4 mg SL .Q5MIN PRN PRN Reason: Chest Pain Ondansetron HCl (Zofran) 4 mg IV Q8H PRN PRN Reason: Nausea And Vomiting Oxycodone/Acetaminophen (Percocet 5/325) 1 tab PO Q6H PRN PRN Reason: Pain, Moderate (4-6) Pantoprazole Sodium (Protonix) 40 mg PO BID [facility] Last Admin: 02/28/19 09:56 Dose: 40 mg Documented by: Sodium Chloride (Sodium Chloride Flush Syringe 10 Ml) 10 ml IV BID [facility] Last Admin: 02/28/19 09:59 Dose: 10 ml Documented by: Sodium Chloride (Sodium Chloride Flush Syringe 10 Ml) 10 ml IV PRN PRN PRN Reason: LINE FLUSH Spironolactone (Aldactone) 12.5 mg PO QDAY [facility] Last Admin: 02/28/19 09:53 Dose: 12.5 mg Documented by: Review of Systems Constitutional: no fever, no chills, no sweats Ears, nose, mouth and throat: no ear pain, no nose pain, no sinus pressure, no sinus pain Cardiovascular: palpitations, shortness of breath, dyspnea on exertion, no chest pain, no orthopnea, no rapid/irregular heart beat, no edema, no syncope, no lightheadedness, no high blood pressure, no leg edema Respiratory: shortness of breath, dyspnea on exertion, no cough, no congestion, no wheezing, no pain on inspiration Gastrointestinal: no abdominal pain, no nausea, no vomiting, no diarrhea, no constipation, no change in bowel habits Genitourinary Male: no dysuria, no hematuria, no flank pain, no discharge, no urinary frequency, no urinary hesitancy Musculoskeletal: no neck stiffness, no neck pain, no shooting arm pain, no arm numbness/tingling, no low back pain, no shooting leg pain Integumentary: no rash, no pruritis, no redness, no sores, no wounds Neurological: no head injury, no paralysis, no weakness, no parathesias, no numbness, no tingling, no seizures, no syncope Psychiatric: no anxiety Endocrine: no cold intolerance, no heat intolerance Hematologic/Lymphatic: no easy bruising, no easy bleeding Allergic/Immunologic: no urticaria, no wheezing Physical Examination Vital Signs Temp Pulse Resp BP Pulse Ox 98.4 F 102 H 20 130/95 99 02/28/19 01:44 02/28/19 01:44 02/28/19 01:44 02/28/19 01:44 02/28/19 01:44 General appearance: no acute distress HEENT: Positive: PERRL, Normocephaly, Mucus Membranes Moist Neck: Positive: neck supple, trachea midline Cardiac: Positive: Reg Rate and Rhythm, S1/S2 Lungs: Positive: Decreased Breath Sounds Neuro: Positive: Grossly Intact Abdomen: Positive: Soft. Negative: Tender Skin: Negative: Rash, Wound Musculoskeletal: No Pain Extremities: Absent: edema Results 02/28/19 02:22 02/28/19 02:22 Cardiac Enzymes 02/28/19 02/28/19 Range/Units 02:22 05:49 AST 21 (5-40) units/L CK-MB (CK-2) 2.5 2.5 (0.0-4.0) ng/mL Coagulation 02/28/19 Range/Units 02:22 PT 19.4 H (12.2-14.9) Sec. INR 1.68 H (0.87-1.13) APTT 32.6 (24.2-36.6) Sec. CBC 02/28/19 Range/Units 02:22 WBC 9.2 (4.5-11.0) K/mm3 RBC 4.90 (3.65-5.03) M/mm3 Hgb 12.0 (11.8-15.2) gm/dl Hct 37.2 (35.5-45.6) % Plt Count 250 (140-440) K/mm3 Lymph # 2.3 (1.2-5.4) K/mm3 [place] # 0.8 (0.0-0.8) K/mm3 Eos # 0.1 (0.0-0.4) K/mm3 Baso # 0.1 (0.0-0.1) K/mm3 Comprehensive Metabolic Panel 02/28/19 Range/Units 02:22 Sodium 139 (137-145) mmol/L Potassium 4.4 (3.6-5.0) mmol/L Chloride 105.1 (98-107) mmol/L Carbon Dioxide 23 (22-30) mmol/L BUN 14 (9-20) mg/dL Creatinine 1.0 (0.8-1.5) mg/dL Glucose 204 H (75-100) mg/dL Calcium 9.4 (8.4-10.2) mg/dL AST 21 (5-40) units/L ALT 20 (7-56) units/L Alkaline Phosphatase 96 (35-129) units/L Total Protein 8.1 (6.3-8.2) g/dL Albumin 4.0 (3.9-5) g/dL - Imaging and Cardiology Echo: report reviewed (11/03/2018 at [facility] showed EF 15-20%, LV severely dilated, LA mod to severely dilated, RV mod dilated, RV systolic function mod reduced, RA severely dilated, mild to mod MR, RVSP 48mmHg. ) Cardiac cath: report reviewed (Pt was hospitalized at [facility] in 04/2018 where he was initially diagnosed with HF. LHC at that time showed normal coronaries with severe dilated CMP, EF <15%. ) EKG: report reviewed, image reviewed EKG interpretations - Telemetry EKG Rhythm: Sinus Rhythm - EKG Sinus rhythms and dysrhythmias: sinus rhythm Assessment and Plan Acute on chronic HFrEF 15-20% Mild component. Monitor strict I's and O. continue metoprolol/lisinopril/lasix/aldactone. Dilated NICMP Pt was hospitalized at [facility] in 04/2018 where he was initially diagnosed with HF. LHC at that time showed normal coronaries with severe dilated CMP, EF <15%. Echo done 11/03/2018 at [facility] showed EF 15-20%, LV severely dilated, LA mod to severely dilated, RV mod dilated, RV systolic function mod reduced, RA severely dilated, mild to mod MR, RVSP 48mmHg. Cont GDMT and diuresis as tolerated. Plan to address AICD candidacy as OP. H/o atrial flutter S/p DCCV to NSR in 10/2018 and 11/2018 and pt has maintained NSR. Pt anticoagulated with Eliquis. He presented with c/o SOB and intermittent palpitations which he believes are secondary to resumption of Eliquis. Pt now reports resolution of those symptoms. Pt wishes to continue Eliquis at thi s time as he is now able to afford this medication. Affordability of other NOACs and compliance with INR monitoring may be problematic if conversion to another OAC is considered. Cont lopressor. Hypertension Controlled Mecical noncompliance Diabetes mellitus Gout Cont cardiac management as per orders. Likely d/c home in next 24-48hrs. The patient has been seen in conjunction with Dr. Singh who agrees with the assessment and plan of care.
[2019-02-28 12:23] LABS: Creatine Kinase MB 2.3 ng/mL (0.0-4.0)
--- NOTE | 2019-02-28 13:00 | Event Note ---
Date: 02/28/19 Patient with chest pain, CHF exacerbation. I have seen and examined him. Cardiology following.
[2019-03-01] MEDS ORDERED: LASIX IV SCH (06:00)
[2019-03-01 08:27] LABS: Basophils # (Auto) 0.1 K/mm3 (0.0-0.1); Basophils % (Auto) 0.8 % (0.0-1.8); Eosinophils # (Auto) 0.1 K/mm3 (0.0-0.4); Eosinophils % (Auto) 0.8 % (0.0-4.3); Hematocrit 42.2 % (35.5-45.6); Hemoglobin 13.2 gm/dl (11.8-15.2); Lymphocytes # (Auto) 2.2 K/mm3 (1.2-5.4); Lymphocytes % (Auto) 18.7 % (13.4-35.0); Mean Corpuscular HGB Conc 31 % (32-34); Mean Corpuscular Volume 77 fl (84-94); Monocytes # (Auto) 1.1 K/mm3 (0.0-0.8); Monocytes % (Auto) 9.4 % (0.0-7.3); Platelet Count 242 K/mm3 (140-440); Red Blood Count 5.46 M/mm3 (3.65-5.03)
[2019-03-01 08:49] LABS: BUN/Creatinine Ratio 13; Blood Urea Nitrogen 15 mg/dL (9-20); Calcium 9.7 mg/dL (8.4-10.2); Hemolysis Index 0
[2019-03-01] MEDS: ZYLOPRIM PO SCH (09:28)
[2019-03-01] MEDS: ZESTRIL PO SCH (09:29)
[2019-03-01] MEDS: LOPRESSOR PO SCH (09:29)
[2019-03-01] MEDS: ELIQUIS PO SCH (09:29)
[2019-03-01] MEDS: ALDACTONE PO SCH (09:30)
[2019-03-01] MEDS: SODIUM CHLORIDE FLUSH SYRINGE 10 ML IV SCH (09:31)
[2019-03-01] MEDS: PROTONIX PO SCH (09:31)
[2019-03-01] MEDS: HumaLOG SUB-Q SCH ×2 (09:31→12:53)
--- NOTE | 2019-03-01 11:40 | Progress Note ---
Assessment and Plan Acute on chronic HFrEF 15-20% Pt appears to be nearing/at euvolemia. continue metoprolol/lisinopril/lasix/aldactone. Dilated NICMP Pt was hospitalized at [place] in 04/2018 where he was initially diagnosed with HF. LHC at that time showed normal coronaries with severe dilated CMP, EF <15%. Echo done 11/03/2018 at [facility] showed EF 15-20%, LV severely dilated, LA mod to severely dilated, RV mod dilated, RV systolic function mod reduced, RA severely dilated, mild to mod MR, RVSP 48mmHg. Cont GDMT and diuresis as tolerated. Plan to address AICD candidacy as OP. H/o atrial flutter S/p DCCV to NSR in 10/2018 and 11/2018 and pt has maintained NSR. Cont Eliquis and lopressor. Hypertension Controlled Mecical noncompliance Diabetes mellitus Gout Currently stable cardiac status. Pt may discharge home from cardiology standpoint on home cardiac regimen. Recommend pt follow up in our office with Dr. Keyshawn Wade within 1 week of hospital discharge ([phone]). Pt verbalizes u nderstanding and states he will call and make his own appt. The patient has been seen in conjunction with Dr. Singh who agrees with the assessment and plan of care. Subjective Date of service: 03/01/19 Principal diagnosis: HF Interval history: pt resting in bed, states he is feeling much better today, states he wishes to be discharged home. tele reviewed - in SR. Objective Last Vital Signs Temp 97.5 F L 03/01/19 09:16 Pulse 94 H 03/01/19 09:16 Resp 22 03/01/19 09:16 BP 93/45 03/01/19 09:30 Pulse Ox 93 03/01/19 09:16 - Physical Examination General: No Apparent Distress HEENT: Positive: PERRL, Normocephaly, Mucus Membranes Moist Neck: Positive: neck supple, trachea midline Cardiac: Positive: Reg Rate and Rhythm, S1/S2 Lungs: Positive: Decreased Breath Sounds Neuro: Positive: Grossly Intact Abdomen: Positive: Soft. Negative: Tender Skin: Negative: Rash, Wound Musculoskeletal: No Pain Extremities: Absent: edema - Labs and Meds Cardiac Enzymes 02/28/19 Range/Units 10:59 CK-MB (CK-2) 2.3 (0.0-4.0) ng/mL CBC 03/01/19 Range/Units 07:37 WBC 11.9 H (4.5-11.0) K/mm3 RBC 5.46 H (3.65-5.03) M/mm3 Hgb 13.2 (11.8-15.2) gm/dl Hct 42.2 (35.5-45.6) % Plt Count 242 (140-440) K/mm3 Lymph # 2.2 (1.2-5.4) K/mm3 [place] # 1.1 H (0.0-0.8) K/mm3 Eos # 0.1 (0.0-0.4) K/mm3 Baso # 0.1 (0.0-0.1) K/mm3 Comprehensive Metabolic Panel 03/01/19 Range/Units 07:37 Sodium 139 (137-145) mmol/L Potassium 3.8 (3.6-5.0) mmol/L Chloride 99.6 (98-107) mmol/L Carbon Dioxide 26 (22-30) mmol/L BUN 15 (9-20) mg/dL Creatinine 1.2 (0.8-1.5) mg/dL Glucose 156 H (75-100) mg/dL Calcium 9.7 (8.4-10.2) mg/dL - Imaging and Cardiology EKG: report reviewed, image reviewed Echo: report reviewed (11/03/2018 at [facility] showed EF 15-20%, LV severely dilated, LA mod to severely dilated, RV mod dilated, RV systolic function mod reduced, RA severely dilated, mild to mod MR, RVSP 48mmHg. ) Cardiac cath: report reviewed (Pt was hospitalized at [place] in 04/2018 where he was initially diagnosed with HF. LHC at that time showed normal coronaries with severe dilated CMP, EF <15%. ) - Telemetry EKG Rhythm: Sinus Rhythm - EKG Sinus rhythms and dysrhythmias: sinus rhythm
[2019-03-01 12:43] VITALS: BP 99/64
--- NOTE | 2019-03-01 13:58 | Progress Note ---
Assessment and Plan Assessment and plan: Acute on chronic HFrEF 15-20% Pt appears to be nearing/at euvolemia. continue metoprolol/lisinopril/lasix/aldactone. Dilated NICMP Cont GDMT and diuresis as tolerated. Plan to address AICD candidacy as OP. H/o atrial flutter S/p DCCV to NSR in 10/2018 and 11/2018 and pt has maintained NSR. Cont Eliquis and lopressor. Hypertension Controlled Mecical noncompliance Diabetes mellitus Gout Patient complains of inability to walk with pain to his feet. Start colchicine. Disposition Anticipate discharge in a.m. History Interval history: No new issues overnight. Hospitalist Physical - Constitutional Vitals: Temp Pulse Resp BP Pulse Ox 97.0 F L 90 20 99/64 92 03/01/19 11:13 03/01/19 11:13 03/01/19 11:13 03/01/19 11:13 03/01/19 11:13 General appearance: Present: no acute distress - EENT Eyes: Present: PERRL, EOM intact ENT: hearing intact, clear oral mucosa, dentition normal - Neck Neck: Present: supple, normal ROM - Respiratory Respiratory effort: normal Respiratory: bilateral: CTA - Cardiovascular Rhythm: regular Heart Sounds: Present: S1 & S2. Absent: gallop, rub - Extremities Extremities: no ischemia, No edema, Full ROM - Abdominal General gastrointestinal: soft, non-tender, non-distended, normal bowel sounds - Integumentary Integumentary: Present: clear, warm, dry - Neurologic Neurologic: CNII-XII intact, moves all extremities Results - Labs CBC & Chem 7: 03/01/19 07:37 03/01/19 07:37 Labs: Laboratory Last Values WBC 11.9 K/mm3 (4.5-11.0) H 03/01/19 07:37 RBC 5.46 M/mm3 (3.65-5.03) H 03/01/19 07:37 Hgb 13.2 gm/dl (11.8-15.2) 03/01/19 07:37 Hct 42.2 % (35.5-45.6) 03/01/19 07:37 MCV 77 fl (84-94) L 03/01/19 07:37 MCH 24 pg (28-32) L 03/01/19 07:37 MCHC 31 % (32-34) L 03/01/19 07:37 RDW 18.0 % (13.2-15.2) H 03/01/19 07:37 Plt Count 242 K/mm3 (140-440) 03/01/19 07:37 Lymph % (Auto) 18.7 % (13.4-35.0) 03/01/19 07:37 [place] % (Auto) 9.4 % (0.0-7.3) H 03/01/19 07:37 Eos % (Auto) 0.8 % (0.0-4.3) 03/01/19 07:37 Baso % (Auto) 0.8 % (0.0-1.8) 03/01/19 07:37 Lymph # 2.2 K/mm3 (1.2-5.4) 03/01/19 07:37 [place] # 1.1 K/mm3 (0.0-0.8) H 03/01/19 07:37 Eos # 0.1 K/mm3 (0.0-0.4) 03/01/19 07:37 Baso # 0.1 K/mm3 (0.0-0.1) 03/01/19 07:37 Seg Neutrophils % 70.3 % (40.0-70.0) H 03/01/19 07:37 Seg Neutrophils # 8.3 K/mm3 (1.8-7.7) H 03/01/19 07:37 PT 19.4 Sec. (12.2-14.9) H 02/28/19 02:22 INR 1.68 (0.87-1.13) H 02/28/19 02:22 APTT 32.6 Sec. (24.2-36.6) 02/28/19 02:22 Sodium 139 mmol/L (137-145) 03/01/19 07:37 Potassium 3.8 mmol/L (3.6-5.0) 03/01/19 07:37 Chloride 99.6 mmol/L (98-107) 03/01/19 07:37 Carbon Dioxide 26 mmol/L (22-30) 03/01/19 07:37 17 mmol/L 03/01/19 07:37 BUN 15 mg/dL (9-20) 03/01/19 07:37 1.2 mg/dL (0.8-1.5) 03/01/19 07:37 Estimated GFR > 60 ml/min 03/01/19 07:37 13 % 03/01/19 07:37 Glucose 156 mg/dL (75-100) H 03/01/19 07:37 POC Glucose 230 (70-105) H 03/01/19 11:20 Calcium 9.7 mg/dL (8.4-10.2) 03/01/19 07:37 1.20 mg/dL (0.1-1.2) 02/28/19 02:22 AST 21 units/L (5-40) 02/28/19 02:22 ALT 20 units/L (7-56) 02/28/19 02:22 96 units/L (35-129) 02/28/19 02:22 95 units/L (55-170) 02/28/19 10:59 CK-MB (CK-2) 2.3 ng/mL (0.0-4.0) 02/28/19 10:59 CK-MB (CK-2) Rel Index 2.4 (0-4) 02/28/19 10:59 < 0.010 ng/mL (0.00-0.029) 02/28/19 10:59 NT-Pro-B Natriuret Pep 2631 pg/mL (0-900) H 02/28/19 02:22 8.1 g/dL (6.3-8.2) 02/28/19 02:22 4.0 g/dL (3.9-5) 02/28/19 02:22 1.0 % 02/28/19 02:22 Active Medications - Current Medications Current Medications: Generic Name Dose Route Start Last Admin Trade Name Freq PRN Reason Stop Dose Admin Acetaminophen 650 mg 02/28/19 04:43 Tylenol PO Q4H PRN Pain MILD(1-3)/Fever >100.5/HO[place]AND Albuterol 2.5 mg 02/28/19 04:08 Proventil IH Q4HRT PRN Shortness Of Breath Allopurinol 100 mg 02/28/19 10:00 03/01/19 09:28 Zyloprim PO 100 mg QDAY JANINE Administration Apixaban 5 mg 02/28/19 10:00 03/01/19 09:29 Eliquis PO 5 mg Q12HR JANINE Administration Protocol Dextrose 50 ml 02/28/19 04:43 D50w (25gm) Syringe IV PRN PRN Hypoglycemia Furosemide 40 mg 03/01/19 06:00 03/01/19 06:34 Lasix IV 40 mg DAILY@0600 JANINE Administration Insulin Human Lispro 0 unit 02/28/19 07:30 03/01/19 12:53 Humalog SUB-Q 4 unit ACHS JANINE Administration Protocol Lisinopril 2.5 mg 02/28/19 10:00 03/01/19 09:29 Zestril PO 2.5 mg QDAY JANINE Administration Metoprolol Tartrate 12.5 mg 02/28/19 10:00 03/01/19 09:29 Lopressor PO Not Given BID JANINE Nitroglycerin 0.4 mg 02/28/19 04:00 Nitrostat SL .Q5MIN PRN Chest Pain Ondansetron HCl 4 mg 02/28/19 04:43 Zofran IV Q8H PRN Nausea And Vomiting Oxycodone/Acetaminophen 1 tab 02/28/19 04:43 03/01/19 09:27 Percocet 5/325 PO 1 tab Q6H PRN Administration Pain, Moderate (4-6) Pantoprazole Sodium 40 mg 02/28/19 10:00 03/01/19 09:31 Protonix PO 40 mg BID JANINE Administration Sodium Chloride 10 ml 02/28/19 10:00 03/01/19 09:31 Sodium Chloride Flush Syringe 10 Ml IV 10 ml BID JANINE Administration Sodium Chloride 10 ml 02/28/19 04:43 Sodium Chloride Flush Syringe 10 Ml IV PRN PRN LINE FLUSH Spironolactone 12.5 mg 02/28/19 10:00 03/01/19 09:30 Aldactone PO 12.5 mg QDAY JANINE Administration
--- NOTE | 2019-03-01 15:26 | Discharge Summary ---
Providers - Providers Date of Admission: 02/28/19 04:43 Date of discharge: 03/01/19 Attending physician: GENNY BROWN 02/28/19 04:43 Consult to Physician [CONS] Routine Comment: Consulting Provider: FRED RICHMOND Physician Instructions: Reason For Exam: cp [facility] Reason for admission: cp Condition: Fair Hospital course: The pt is a 58-year-old male with a past medical history of dilated NICMP, atrial flutter s/p DCCV x 2, anticoagulated on Eliquis, HFrEF, DM, obesity, noncompliance who presented with c/o SOB and intermittent palpitations the night prior to admission. The patient was admitted with diagnosis of acute on chronic HFrEF exacerbation and chest pain. The patient was treated with metoprolol/lisinopril/lasix/aldactone achieving significant improvement. Pneumatic Tool Repairer consultation and recommended to continue GDMT and diuresis as tolerated. The patient reached euvolemic and was stabilized. Cardiology felt patient could discharge home. Patient is also to continue eliquis. Pt may discharge home from cardiology standpoint on home cardiac regimen. Recommend pt follow up in our office with Dr. Keyshawn Richmond within 1 week of hospital discharge ([phone]). Pt verbalizes understanding and states he will call and make his own appt. Dedicated discharge time 32 minutes. Disposition: DC-01 TO HOME OR SELFCARE Time spent for discharge: 32 - Discharge Diagnoses (1) CHF exacerbation Status: Acute (2) Chest pain Status: Acute (3) SOB (shortness of breath) Status: Acute (4) Acute on chronic HFrEF (heart failure with reduced ejection fraction) Status: Acute (5) Cardiomyopathy Status: Acute Qualifiers: Cardiomyopathy type: unspecified Qualified Code(s): I42.9 - Cardiomyopathy, unspecified (6) Elevated LFTs Status: Acute (7) HTN (hypertension) Status: Acute (8) Diabetes Status: Chronic (9) Dilated cardiomyopathy Status: Chronic (10) History of atrial flutter Status: Chronic (11) Nonischemic dilated cardiomyopathy Status: Chronic (12) Obesity Status: Chronic Core Measure Documentation - Palliative Care Palliative Care/ Comfort Measures: Not Applicable - Core Measures Any of the following diagnoses?: heart failure - Heart Failure Discharge Requirements DAMIEN/ARB for LVSD if EF <40%: Yes Beta sampson at discharge: Yes Exam - Constitutional Vitals: Temp Pulse Resp BP Pulse Ox 97.0 F L 90 20 99/64 98 03/01/19 11:13 03/01/19 11:13 03/01/19 11:13 03/01/19 11:13 03/01/19 14:15 General appearance: Present: no acute distress, well-nourished - EENT Eyes: Present: PERRL ENT: hearing intact, clear oral mucosa - Neck Neck: Present: supple, normal ROM - Respiratory Respiratory effort: normal Respiratory: bilateral: CTA - Cardiovascular Heart Sounds: Present: S1 & S2. Absent: rub, click - Extremities Extremities: pulses symmetrical, No edema Peripheral Pulses: within normal limits - Abdominal General gastrointestinal: Present: soft, non-tender, non-distended, normal bowel sounds Male genitourinary: Present: normal - Integumentary Integumentary: Present: clear, warm, dry - Musculoskeletal Musculoskeletal: gait normal, strength equal bilaterally - Psychiatric Psychiatric: appropriate mood/affect, intact judgment & insight - Neurologic Neurologic: CNII-XII intact, moves all extremities Plan Activity: no restrictions Weight Bearing Status: Weight Bear as Tolerated Diet: low fat, low cholesterol, low salt Follow up with: DEVANG TERANNORWALK MD LEIGHANN [Primary Care Provider] - 3-5 Days Prescriptions: Spironolactone [Aldactone] 12.5 mg PO QDAY #30 tablet Aspirin EC 81 mg PO QDAY #30 tablet. Apixaban [Eliquis] 5 mg PO Q12HR #60 tablet Furosemide [Lasix TAB] 40 mg PO QDAY #30 tablet Metoprolol [Lopressor TAB] 12.5 mg PO BID #60 tablet Famotidine [Pepcid] 20 mg PO BID #60 tablet oxyCODONE /ACETAMINOPHEN [Percocet 5/325 mg] 1 tab PO Q6H PRN #10 tablet PRN Reason: Pain, Moderate (4-6) Lisinopril [Zestril TAB] 2.5 mg PO QDAY #30 tablet Allopurinol [Zyloprim] 100 mg PO QDAY #30 tablet
== END 2019-03-01 17:01 | disposition home or self-care (01) ==
LOC: SUATTDRO 01:32 → ED 01:32 → INTOOBSV 04:43 → 4A 04:43
PROVIDERS: ADMIT Internal Medicine; ATTEND Hospitalist
DX: R07.89 Other chest pain (principal); I11.0 Hypertensive heart disease with heart failure; I50.23 Acute on chronic systolic (congestive) heart failure; I48.92 Unspecified atrial flutter; E11.9 Type 2 diabetes mellitus without complications; M10.9 Gout, unspecified; I25.10 Atherosclerotic heart disease of native coronary artery without angina pectoris; I42.9 Cardiomyopathy, unspecified; R79.89 Other specified abnormal findings of blood chemistry; E66.9 Obesity, unspecified; Z68.41 Body mass index [BMI] 40.0-44.9, adult; Z79.82 Long term (current) use of aspirin
CPT/HCPCS: 36415; 71045; 80048; 80053; 82550; 82553; 82962; 83880; 84484; 85025; 85610; 85730; 93005; 93010; 96372; 96374; 96375; 96376; 99284; G0378; J1940; J2405; J3010; J1815

== ENCOUNTER 2019-05-01 21:57 | Emergency (ER) | payer MEDICAID ==
--- NOTE | 2019-05-01 22:11 | Emergency Department Report ---
Blank Doc - Documentation Documentation: 58-year-old male that presents with bilateral leg pains, aching and swelling. This initial assessment/diagnostic orders/clinical plan/treatment(s) is/are subject to change based on patient's health status, clinical progression and re- assessment by fellow clinical providers in the ED. Further treatment and workup at subsequent clinical providers discretion. Patient/guardians urged not to elope from the ED as their condition may be serious if not clinically assessed and managed. Initial orders include: 1- Patient sent to MAIN ED for further evaluation and treatment 2- labs 3- UA
[2019-05-01 22:30] LABS: Basophils # (Auto) 0.1 K/mm3 (0.0-0.1); Basophils % (Auto) 0.7 % (0.0-1.8); Eosinophils # (Auto) 0.1 K/mm3 (0.0-0.4); Eosinophils % (Auto) 0.7 % (0.0-4.3); Hematocrit 47.3 % (35.5-45.6); Hemoglobin 15.3 gm/dl (11.8-15.2); Lymphocytes # (Auto) 2.6 K/mm3 (1.2-5.4); Lymphocytes % (Auto) 17.8 % (13.4-35.0); Mean Corpuscular HGB Conc 32 % (32-34); Mean Corpuscular Volume 78 fl (84-94); Monocytes # (Auto) 0.8 K/mm3 (0.0-0.8); Monocytes % (Auto) 5.8 % (0.0-7.3); Platelet Count 195 K/mm3 (140-440); Red Blood Count 6.05 M/mm3 (3.65-5.03); Red Cell Distribution Width 18.7 % (13.2-15.2)
[2019-05-01 22:31] LABS: Bilirubin,Urine NEG (Negative); Blood,Urine NEG (Negative); Color,Urine Straw (Yellow); Protein,Urine <15 mg/dL mg/dL (Negative); Urobilinogen,Urine < 2.0 mg/dL (<2.0)
[2019-05-01 22:40] LABS: INR 1.3 (0.87-1.13)
[2019-05-01 22:42] LABS: Partial Thromboplastin Time 27.9 Sec. (24.2-36.6)
[2019-05-01 22:56] LABS: Alanine Aminotransferase 18 units/L (7-56); Albumin 4.6 g/dL (3.9-5); BUN/Creatinine Ratio 18; Blood Urea Nitrogen 16 mg/dL (9-20); Calcium 9.7 mg/dL (8.4-10.2); Hemolysis Index 21
--- NOTE | 2019-05-01 22:58 | XRay Report ---
CHEST 2 VIEWS INDICATION / CLINICAL INFORMATION: Chest Pain. COMPARISON: Chest radiograph 02/28/2019 FINDINGS: SUPPORT DEVICES: None. HEART / MEDIASTINUM: No significant abnormality. LUNGS / PLEURA: No significant pulmonary or pleural abnormality. No pneumothorax. ADDITIONAL FINDINGS: No significant additional findings. IMPRESSION: 1. No acute findings. Signer Name: Stephanie Lara MD Signed: 05/01/2019 10:53 PM Workstation Name: [id number]
--- NOTE | 2019-05-01 23:00 | Emergency Department Report ---
ED General Adult HPI - General Chief complaint: Extremity Injury, Lower Stated complaint: BILATERAL LEG PAIN Time Seen by Provider: 05/01/19 22:08 Source: patient, EMS Mode of arrival: Wheelchair Limitations: No Limitations - History of Present Illness Initial comments: 58 yo M presents to ED with painful joints. Patient reports history of gout. States over the last 2 days he experienced pain to the left knee and upper anterior lower leg. States, today, the pain in his left knee has resolved, but he is now having pain in the right knee and ankle. Patient denies fever, calf pain, chest pain, SOB. He reports that he took tylenol for pain prior to ED arrival. Patient states the pain is similar to his gout attacks but not as severe. Patient also reports that he was fixing the commode in his bathroom while sitting on his mother's walker. Patient states the walker rolled out from underneath him and he landed on the walker. Pt now reporting left buttock pain from the fall. Patient denies back pain. -: days(s) (3) Location: buttocks, left, right, lower extremity Quality: aching Consistency: intermittent Improves with: none Worsens with: movement Associated Symptoms: denies: chest pain, fever/chills, shortness of breath - Related Data Previous Rx's Medication Instructions Recorded Last Taken Type oxyCODONE /ACETAMINOPHEN [Percocet 1 tab PO Q6H PRN #8 tablet 02/17/19 02/27/19 Rx 5/325 mg] Allopurinol [Zyloprim] 100 mg PO QDAY #30 tablet 03/01/19 Unknown Rx Apixaban [Eliquis] 5 mg PO Q12HR #60 tablet 03/01/19 Unknown Rx Aspirin EC [Halfprin EC] 81 mg PO QDAY #30 tablet. 03/01/19 Unknown Rx Famotidine [Pepcid] 20 mg PO BID #60 tablet 03/01/19 Unknown Rx Furosemide [Lasix TAB] 40 mg PO QDAY #30 tablet 03/01/19 Unknown Rx Lisinopril [Zestril TAB] 2.5 mg PO QDAY #30 tablet 03/01/19 Unknown Rx Metoprolol [Lopressor TAB] 12.5 mg PO BID #60 tablet 03/01/19 Unknown Rx Spironolactone [Aldactone] 12.5 mg PO QDAY #30 tablet 03/01/19 Unknown Rx oxyCODONE /ACETAMINOPHEN [Percocet 1 tab PO Q6H PRN #10 tablet 03/01/19 Unknown Rx 5/325 mg] traMADol [Ultram] 50 mg PO Q6HR PRN #7 tablet 05/02/19 Unknown Rx Allergies Allergy/AdvReac Type Severity Reaction Status Date / Time No Known Allergies Allergy Verified 11/30/18 15:13 ED Review of Systems ROS: Stated complaint: BILATERAL LEG PAIN Other details as noted in HPI Comment: All other systems reviewed and negative Constitutional: denies: chills, fever Respiratory: denies: shortness of breath Cardiovascular: denies: chest pain Musculoskeletal: as per HPI ED Past Medical Hx - Past Medical History Hx Hypertension: Yes Hx Heart Attack/AMI: No Hx Congestive Heart Failure: Yes Hx Diabetes: Yes Hx Deep Vein Thrombosis: No Hx Liver Disease: No Hx Arthritis: Yes (gout) Hx Headaches / Migraines: Yes Hx Seizures: No Hx Asthma: No Hx COPD: No Hx Dementia: No Hx HIV: No Additional medical history: AFib gout back and left leg pain. OBESITY - Surgical History Hx Coronary Stent: No Hx Pacemaker: No Hx Internal Defibrillator: No - Social History Smoking Status: Unknown if ever smoked Substance Use Type: None - Medications Home Medications: Home Medications Medication Instructions Recorded Confirmed Last Taken Type oxyCODONE /ACETAMINOPHEN [Percocet 1 tab PO Q6H PRN #8 tablet 02/17/19 02/28/19 02/27/19 Rx 5/325 mg] Allopurinol [Zyloprim] 100 mg PO QDAY #30 tablet 03/01/19 Unknown Rx Apixaban [Eliquis] 5 mg PO Q12HR #60 tablet 03/01/19 Unknown Rx Aspirin EC [Halfprin EC] 81 mg PO QDAY #30 tablet. 03/01/19 Unknown Rx Famotidine [Pepcid] 20 mg PO BID #60 tablet 03/01/19 Unknown Rx Furosemide [Lasix TAB] 40 mg PO QDAY #30 tablet 03/01/19 Unknown Rx Lisinopril [Zestril TAB] 2.5 mg PO QDAY #30 tablet 03/01/19 Unknown Rx Metoprolol [Lopressor TAB] 12.5 mg PO BID #60 tablet 03/01/19 Unknown Rx Spironolactone [Aldactone] 12.5 mg PO QDAY #30 tablet 03/01/19 Unknown Rx oxyCODONE /ACETAMINOPHEN [Percocet 1 tab PO Q6H PRN #10 tablet 03/01/19 Unknown Rx 5/325 mg] traMADol [Ultram] 50 mg PO Q6HR PRN #7 tablet 05/02/19 Unknown Rx ED Physical Exam - General Limitations: No Limitations General appearance: alert, in no apparent distress - Head Head exam: Present: atraumatic, normocephalic - Eye Eye exam: Present: normal appearance - ENT ENT exam: Present: mucous membranes moist - Neck Neck exam: Present: normal inspection - Respiratory Respiratory exam: Present: normal lung sounds bilaterally. Absent: respiratory distress - Cardiovascular Cardiovascular Exam: Present: normal rhythm, tachycardia - GI/Abdominal GI/Abdominal exam: Present: soft. Absent: distended, tenderness - Extremities Exam Extremities exam: Present: other (no obvious swelling present in the knees or ankles; tenderness to right knee and right ankle; no erythema present; no calf tenderess present) - Neurological Exam Neurological exam: Present: alert, oriented X3 - Psychiatric Psychiatric exam: Present: normal affect, normal mood - Skin Skin exam: Present: warm, dry, intact, normal color ED Course Vital Signs 05/01/19 05/01/19 05/02/19 22:08 23:00 01:42 Temperature 97.6 F 97.8 F Pulse Rate 108 H 104 H Respiratory 20 20 20 Rate Blood Pressure 142/80 Blood Pressure 130/85 [Left] O2 Sat by Pulse 96 96 Oximetry ED Medical Decision Making - Lab Data Result diagrams: 05/01/19 22:15 05/01/19 22:15 - EKG Data -: EKG Interpreted by Hi EKG shows normal: sinus rhythm, axis, intervals, QRS complexes Rate: tachycardia (rate 101) - EKG Data Interpretation: nonspecific ST-T wave mansi - Medical Decision Making - hyponatremia likely due to hyperglycemia - glucose improved to the 300s w/o intervention - joint pain in bilateral knees and right ankle w/o calf tenderness, low suspicion for DVT - reports appt w/ information technology security manager tomorrow at [facility] - Differential Diagnosis arthritis, gout Critical care attestation.: If time is entered above; I have spent that time in minutes in the direct care of this critically ill patient, excluding procedure time. ED Disposition Clinical Impression: Arthralgia Disposition: DC- TO HOME OR SELFCARE Is pt being admited?: No Condition: Stable Instructions: Knee Pain (ED), Arthralgia (ED) Prescriptions: traMADol [Ultram] 50 mg PO Q6HR PRN #7 tablet PRN Reason: Pain Referrals: PRIMARY CAREMD [Primary Care Provider] - 3-5 Days RODNEY CALDERON MD [Staff Physician] - 3-5 Days Time of Disposition: 01:06
[2019-05-01] MEDS ORDERED: INSULIN REGULAR, HUMAN 100 UNITS/1 ML IV ONE (23:37)
[2019-05-01] MEDS ORDERED: traMADol 50 MG TAB PO ONE (23:38)
[2019-05-02 04:36] VITALS: BP 132/82
== END 2019-05-02 02:30 | disposition home or self-care (01) ==
LOC: ED 21:57
DX: M25.561 Pain in right knee (principal); M25.571 Pain in right ankle and joints of right foot; I11.0 Hypertensive heart disease with heart failure; I50.9 Heart failure, unspecified; E11.9 Type 2 diabetes mellitus without complications; M19.90 Unspecified osteoarthritis, unspecified site; G43.909 Migraine, unspecified, not intractable, without status migrainosus; E66.9 Obesity, unspecified
CPT/HCPCS: 36415; 71046; 80053; 81001; 82962; 83880; 84484; 85025; 85610; 85730; 93005; 93010; 96374

== ENCOUNTER 2019-05-04 15:38 | Emergency (ER) | payer MEDICAID ==
--- NOTE | 2019-05-04 16:27 | Emergency Department Report ---
ED General Adult HPI - General Chief complaint: Extremity Injury, Lower Stated complaint: LEG PAIN Time Seen by Provider: 05/04/19 16:19 Source: EMS Mode of arrival: Stretcher Limitations: No Limitations - History of Present Illness Initial comments: Patient presents to the emergency department with a chief complaint of right knee pain. Patient states he was seen at this hospital for a pain a couple days ago. The patient has a history of gout and states this is very consistent with gout flareups. He states the indomethacin at home was not working. Patient denies any fever at home. -: Gradual Location: lower extremity Radiation: non-radiation Severity scale (0 -10): 7 Quality: stabbing Consistency: constant Improves with: rest Worsens with: movement Associated Symptoms: denies other symptoms Treatments Prior to Arrival: none - Related Data Previous Rx's Medication Instructions Recorded Last Taken Type oxyCODONE /ACETAMINOPHEN [Percocet 1 tab PO Q6H PRN #8 tablet 02/17/19 02/27/19 Rx 5/325 mg] Allopurinol [Zyloprim] 100 mg PO QDAY #30 tablet 03/01/19 Unknown Rx Apixaban [Eliquis] 5 mg PO Q12HR #60 tablet 03/01/19 Unknown Rx Aspirin EC [Halfprin EC] 81 mg PO QDAY #30 tablet.dr 03/01/19 Unknown Rx Famotidine [Pepcid] 20 mg PO BID #60 tablet 03/01/19 Unknown Rx Furosemide [Lasix TAB] 40 mg PO QDAY #30 tablet 03/01/19 Unknown Rx Lisinopril [Zestril TAB] 2.5 mg PO QDAY #30 tablet 03/01/19 Unknown Rx Metoprolol [Lopressor TAB] 12.5 mg PO BID #60 tablet 03/01/19 Unknown Rx Spironolactone [Aldactone] 12.5 mg PO QDAY #30 tablet 03/01/19 Unknown Rx oxyCODONE /ACETAMINOPHEN [Percocet 1 tab PO Q6H PRN #10 tablet 03/01/19 Unknown Rx 5/325 mg] traMADol [Ultram] 50 mg PO Q6HR PRN #7 tablet 05/02/19 Unknown Rx HYDROcodone/APAP 5-325 [[place] 1 each PO Q6HR PRN #12 tablet 05/04/19 Unknown Rx 5/325] Naproxen [Naprosyn] 500 mg PO BID PRN #20 tablet 05/04/19 Unknown Rx Allergies Allergy/AdvReac Type Severity Reaction Status Date / Time No Known Allergies Allergy Verified 05/04/19 15:58 ED Review of Systems ROS: Stated complaint: LEG PAIN Other details as noted in HPI Comment: Unobtainable due to pts medical conditions Constitutional: denies: chills, fever Eyes: denies: eye pain, eye discharge, vision change ENT: denies: ear pain, throat pain Respiratory: denies: cough, shortness of breath, wheezing Cardiovascular: denies: chest pain, palpitations Endocrine: no symptoms reported Gastrointestinal: denies: abdominal pain, nausea, diarrhea Genitourinary: denies: urgency, dysuria Musculoskeletal: denies: back pain, joint swelling, arthralgia Skin: denies: rash, lesions Neurological: denies: headache, weakness, paresthesias Psychiatric: denies: anxiety, depression Hematological/Lymphatic: denies: easy bleeding, easy bruising ED Past Medical Hx - Past Medical History Hx Hypertension: Yes Hx Heart Attack/AMI: No Hx Congestive Heart Failure: Yes Hx Diabetes: Yes Hx Deep Vein Thrombosis: No Hx Liver Disease: No Hx Arthritis: Yes (gout) Hx Headaches / Migraines: Yes Hx Seizures: No Hx Asthma: No Hx COPD: No Hx Dementia: No Hx HIV: No Additional medical history: AFib gout back and left leg pain. OBESITY - Surgical History Hx Coronary Stent: No Hx Pacemaker: No Hx Internal Defibrillator: No - Social History Smoking Status: Never Smoker Substance Use Type: None - Medications Home Medications: Home Medications Medication Instructions Recorded Confirmed Last Taken Type oxyCODONE /ACETAMINOPHEN [Percocet 1 tab PO Q6H PRN #8 tablet 02/17/19 02/28/19 02/27/19 Rx 5/325 mg] Allopurinol [Zyloprim] 100 mg PO QDAY #30 tablet 03/01/19 Unknown Rx Apixaban [Eliquis] 5 mg PO Q12HR #60 tablet 03/01/19 Unknown Rx Aspirin EC [Halfprin EC] 81 mg PO QDAY #30 tablet 03/01/19 Unknown Rx Famotidine [Pepcid] 20 mg PO BID #60 tablet 03/01/19 Unknown Rx Furosemide [Lasix TAB] 40 mg PO QDAY #30 tablet 03/01/19 Unknown Rx Lisinopril [Zestril TAB] 2.5 mg PO QDAY #30 tablet 03/01/19 Unknown Rx Metoprolol [Lopressor TAB] 12.5 mg PO BID #60 tablet 03/01/19 Unknown Rx Spironolactone [Aldactone] 12.5 mg PO QDAY #30 tablet 03/01/19 Unknown Rx oxyCODONE /ACETAMINOPHEN [Percocet 1 tab PO Q6H PRN #10 tablet 03/01/19 Unknown Rx 5/325 mg] traMADol [Ultram] 50 mg PO Q6HR PRN #7 tablet 05/02/19 Unknown Rx HYDROcodone/APAP 5-325 [[place] 1 each PO Q6HR PRN #12 tablet 05/04/19 Unknown Rx 5/325] Naproxen [Naprosyn] 500 mg PO BID PRN #20 tablet 05/04/19 Unknown Rx ED Physical Exam - General Limitations: No Limitations General appearance: obtunded, other (seizing) - Head Head exam: Present: atraumatic, normocephalic - Eye Eye exam: Present: PERRL - ENT ENT exam: Present: mucous membranes dry - Neck Neck exam: Present: normal inspection - Respiratory Respiratory exam: Present: normal lung sounds bilaterally. Absent: respiratory distress - Cardiovascular Cardiovascular Exam: Present: tachycardia - GI/Abdominal GI/Abdominal exam: Present: soft, normal bowel sounds. Absent: distended, tenderness - Rectal Rectal exam: Present: deferred - Extremities Exam Extremities exam: Present: other (patient has swelling and warmth to the right knee without warmth to touch) - Back Exam Back exam: Present: normal inspection - Neurological Exam Neurological exam: Present: alert, CN II-XII intact. Absent: motor sensory deficit - Psychiatric Psychiatric exam: Present: normal affect, normal mood - Skin Skin exam: Present: warm, dry, intact, normal color. Absent: rash ED Course Vital Signs 05/04/19 05/04/19 15:53 17:04 Temperature 98.3 F Pulse Rate 103 H 109 H Respiratory 18 18 Rate Blood Pressure 134/78 Blood Pressure 125/82 [Left] O2 Sat by Pulse 100 97 Oximetry ED Medical Decision Making - Medical Decision Making Discussed plan of care with patient Critical care attestation.: If time is entered above; I have spent that time in minutes in the direct care of this critically ill patient, excluding procedure time. ED Disposition Clinical Impression: Gout Disposition: DC- TO HOME OR SELFCARE Is pt being admited?: No Does the pt Need Aspirin: No Condition: Stable Instructions: Acute Gouty Arthritis (ED) Additional Instructions: return if worse Referrals: PRIMARY CARE,MD [Primary Care Provider] - 3-5 Days [facility] [Provider Group] - 3-5 Days [facility] [Provider Group] - 3-5 Days Time of Disposition: 18:39
[2019-05-04 17:05] VITALS: BP 125/82
[2019-05-04] MEDS ORDERED: ONDANSETRON 4 MG/2 ML INJ IM ONE (17:32)
[2019-05-04] MEDS ORDERED: methylPREDNISolone Sod Succinate 125 MG/2 ML INJ IM ONE (17:32)
[2019-05-04] MEDS ORDERED: MORPHINE 4 MG/1 ML INJ IM ONE (17:32)
== END 2019-05-04 19:01 | disposition home or self-care (01) ==
LOC: ED 15:38
DX: M10.061 Idiopathic gout, right knee (principal); I10 Essential (primary) hypertension; G43.909 Migraine, unspecified, not intractable, without status migrainosus; E11.9 Type 2 diabetes mellitus without complications; E66.9 Obesity, unspecified; Z68.41 Body mass index [BMI] 40.0-44.9, adult; Z79.899 Other long term (current) drug therapy; Z79.82 Long term (current) use of aspirin
CPT/HCPCS: 96372; 99283; J2270; J2405; J2930

== ENCOUNTER 2019-05-31 07:54 | Inpatient (IN) | payer MEDICAID ==
[2019-05-31] MEDS ORDERED: HYDROcodone/ACETAMINOPHEN 5-325 MG TAB PO ONE (09:07)
[2019-05-31 09:16] LABS: Basophils # (Auto) 0.1 K/mm3 (0.0-0.1); Basophils % (Auto) 0.8 % (0.0-1.8); Eosinophils # (Auto) 0.1 K/mm3 (0.0-0.4); Eosinophils % (Auto) 0.7 % (0.0-4.3); Hematocrit 45.3 % (35.5-45.6); Hemoglobin 14.7 gm/dl (11.8-15.2); Lymphocytes % (Auto) 18.5 % (13.4-35.0); Mean Corpuscular HGB Conc 32 % (32-34); Mean Corpuscular Volume 79 fl (84-94); Monocytes % (Auto) 9.5 % (0.0-7.3); Platelet Count 239 K/mm3 (140-440); Red Blood Count 5.74 M/mm3 (3.65-5.03)
--- NOTE | 2019-05-31 10:01 | Emergency Department Report ---
ED General Adult HPI - General Chief complaint: Extremity Injury, Lower Stated complaint: KNEE PAIN Time Seen by Provider: 05/31/19 08:50 Source: patient Mode of arrival: Ambulatory Limitations: No Limitations - History of Present Illness Initial comments: This is a 58-year-old male with a history of type 2 diabetes, morbid obesity, nonischemic cardiomyopathy and gout. He feels he is having a typical gout attack. He describes right knee pain. He also describes tingling in his ankle. He states his tingling is typical for his early gout attacks. He has not measured his temperature. He does not have fever. When he describes fever, it appears he is relating that to inflammation in his knee. The patient states that he receives his general medical care at [place]. Despite this he states he is not using insulin because he does not "know how to use it". He has been admitted here before for issues related to his cardiomyopathy/CHF. -: Gradual, days(s) Location: right, lower extremity Radiation: non-radiation Severity scale (0 -10): 9 Quality: aching Consistency: constant Improves with: none Worsens with: none Associated Symptoms: denies: denies other symptoms - Related Data Previous Rx's Medication Instructions Recorded Last Taken Type oxyCODONE /ACETAMINOPHEN [Percocet 1 tab PO Q6H PRN #8 tablet 02/17/19 02/27/19 Rx 5/325 mg] Allopurinol [Zyloprim] 100 mg PO QDAY #30 tablet 03/01/19 Unknown Rx Apixaban [Eliquis] 5 mg PO Q12HR #60 tablet 03/01/19 Unknown Rx Aspirin EC [Halfprin EC] 81 mg PO QDAY #30 tablet 03/01/19 Unknown Rx Famotidine [Pepcid] 20 mg PO BID #60 tablet 03/01/19 Unknown Rx Furosemide [Lasix TAB] 40 mg PO QDAY #30 tablet 03/01/19 Unknown Rx Lisinopril [Zestril TAB] 2.5 mg PO QDAY #30 tablet 03/01/19 Unknown Rx Metoprolol [Lopressor TAB] 12.5 mg PO BID #60 tablet 03/01/19 Unknown Rx Spironolactone [Aldactone] 12.5 mg PO QDAY #30 tablet 03/01/19 Unknown Rx oxyCODONE /ACETAMINOPHEN [Percocet 1 tab PO Q6H PRN #10 tablet 03/01/19 Unknown Rx 5/325 mg] traMADol [Ultram] 50 mg PO Q6HR PRN #7 tablet 05/02/19 Unknown Rx HYDROcodone/APAP 5-325 [[place] 1 each PO Q6HR PRN #12 tablet 05/04/19 Unknown Rx 5/325] Naproxen [Naprosyn] 500 mg PO BID PRN #20 tablet 05/04/19 Unknown Rx Prednisone [predniSONE 10 mg 10 mg PO .TAPER #1 tab.ds.pk 05/04/19 Unknown Rx (6-Day Pack, 21 Tabs)] Allergies Allergy/AdvReac Type Severity Reaction Status Date / Time No Known Allergies Allergy Verified 05/04/19 15:58 ED Review of Systems ROS: Stated complaint: KNEE PAIN Other details as noted in HPI Constitutional: denies: chills, fever Eyes: denies: eye pain, eye discharge, vision change ENT: denies: ear pain, throat pain Respiratory: denies: cough, shortness of breath, wheezing Cardiovascular: denies: chest pain, palpitations Endocrine: no symptoms reported Gastrointestinal: denies: abdominal pain, nausea, diarrhea Genitourinary: denies: urgency, dysuria Musculoskeletal: as per HPI, joint swelling, arthralgia. denies: back pain Skin: denies: rash, lesions Neurological: denies: headache, weakness, paresthesias Psychiatric: denies: anxiety, depression Hematological/Lymphatic: denies: easy bleeding, easy bruising ED Past Medical Hx - Past Medical History Previous Medical History?: Yes Hx Hypertension: Yes Hx Heart Attack/AMI: No Hx Congestive Heart Failure: Yes Hx Diabetes: Yes Hx Deep Vein Thrombosis: No Hx Liver Disease: No Hx Arthritis: Yes (gout) Hx Headaches / Migraines: Yes Hx Seizures: No Hx Asthma: No Hx COPD: No Hx Dementia: No Hx HIV: No Additional medical history: AFib gout back and left leg pain. OBESITY - Surgical History Past Surgical History?: No Hx Coronary Stent: No Hx Pacemaker: No Hx Internal Defibrillator: No - Social History Smoking Status: Former Smoker Substance Use Type: None - Medications Home Medications: Home Medications Medication Instructions Recorded Confirmed Last Taken Type oxyCODONE /ACETAMINOPHEN [Percocet 1 tab PO Q6H PRN #8 tablet 02/17/19 02/28/1919 Rx 5/325 mg] Allopurinol [Zyloprim] 100 mg PO QDAY #30 tablet 03/01/19 Unknown Rx Apixaban [Eliquis] 5 mg PO Q12HR #60 tablet 03/01/19 Unknown Rx Aspirin EC [Halfprin EC] 81 mg PO QDAY #30 tablet. 03/01/19 Unknown Rx Famotidine [Pepcid] 20 mg PO BID #60 tablet 03/01/19 Unknown Rx Furosemide [Lasix TAB] 40 mg PO QDAY #30 tablet 03/01/19 Unknown Rx Lisinopril [Zestril TAB] 2.5 mg PO QDAY #30 tablet 03/01/19 Unknown Rx Metoprolol [Lopressor TAB] 12.5 mg PO BID #60 tablet 03/01/19 Unknown Rx Spironolactone [Aldactone] 12.5 mg PO QDAY #30 tablet 03/01/19 Unknown Rx oxyCODONE /ACETAMINOPHEN [Percocet 1 tab PO Q6H PRN #10 tablet 03/01/19 Unknown Rx 5/325 mg] traMADol [Ultram] 50 mg PO Q6HR PRN #7 tablet 05/02/19 Unknown Rx HYDROcodone/APAP 5-325 [[place] 1 each PO Q6HR PRN #12 tablet 05/04/19 Unknown Rx 5/325] Naproxen [Naprosyn] 500 mg PO BID PRN #20 tablet 05/04/19 Unknown Rx Prednisone [predniSONE 10 mg 10 mg PO .TAPER #1 tab.ds.pk 05/04/19 Unknown Rx (6-Day Pack, 21 Tabs)] ED Physical Exam - General Limitations: Physical Limitation General appearance: alert, in no apparent distress, obese (morbidly) - Head Head exam: Present: atraumatic, normocephalic - Eye Eye exam: Present: normal appearance. Absent: scleral icterus - ENT ENT exam: Present: mucous membranes moist - Neck Neck exam: Present: normal inspection - Respiratory Respiratory exam: Present: normal lung sounds bilaterally. Absent: respiratory distress - Cardiovascular Cardiovascular Exam: Present: regular rate, normal rhythm. Absent: systolic murmur, diastolic murmur, rubs, gallop - GI/Abdominal GI/Abdominal exam: Present: soft, normal bowel sounds. Absent: distended, tenderness, guarding, rebound, rigid - Rectal Rectal exam: Present: deferred - Extremities Exam Extremities exam: Present: other (there is some warmth of the right knee. There is discomfort on range of motion. The knee is slightly ballotable indicating a small effusion. The right ankle perhaps is slightly inflamed.) - Back Exam Back exam: Present: normal inspection - Neurological Exam Neurological exam: Present: alert, oriented X3, CN II-XII intact. Absent: motor sensory deficit - Psychiatric Psychiatric exam: Present: normal affect, normal mood - Skin Skin exam: Present: warm, dry, intact, normal color. Absent: rash ED Course Vital Signs 05/31/19 08:11 Temperature 97.5 F L Pulse Rate 60 Respiratory 18 Rate Blood Pressure 104/75 O2 Sat by Pulse 97 Oximetry - Reevaluation(s) Reevaluation #1: Patient found to have hyperglycemia associated with an increased anion gap. Early DKA as likely. Discussed with hospitalist. Certainly we can't give the patient steroids for his gout flare and discharge him. He does not know how to use insulin. He will be admitted. 05/31/19 14:13 ED Medical Decision Making - Lab Data Result diagrams: 05/31/19 08:36 05/31/19 09:57 Laboratory Results - last 24 hr 05/31/19 05/31/19 05/31/19 08:36 08:36 09:29 WBC 10.7 RBC 5.74 H Hgb 14.7 Hct 45.3 MCV 79 L MCH 26 L MCHC 32 RDW 18.0 H Plt Count 239 Lymph % (Auto) 18.5 [place] % (Auto) 9.5 H Eos % (Auto) 0.7 Baso % (Auto) 0.8 Lymph # 2.0 [place] # 1.0 H Eos # 0.1 Baso # 0.1 Seg Neutrophils % 70.5 H Seg Neutrophils # 7.6 VBG pH 7.385 Urine Color Straw Urine Turbidity Clear Urine pH 5.[address] [place] 1.030 Urine Protein <15 mg/dl Urine Glucose (UA) >=500 Urine Ketones Neg Urine Blood Neg Urine Nitrite Neg Urine Bilirubin Neg Urine Urobilinogen < 2.0 Ur Leukocyte Esterase Neg Urine WBC (Auto) 1.0 Urine RBC (Auto) 2.0 U Epithel Cells (Auto) < 1.0 Urine Mucus Few Laboratory Results - last 24 hr 05/31/19 05/31/19 05/31/19 08:36 08:36 09:29 WBC 10.7 RBC 5.74 H Hgb 14.7 Hct 45.3 MCV 79 L MCH 26 L MCHC 32 RDW 18.0 H Plt Count 239 Lymph % (Auto) 18.5 [place] % (Auto) 9.5 H Eos % (Auto) 0.7 Baso % (Auto) 0.8 Lymph # 2.0 [place] # 1.0 H Eos # 0.1 Baso # 0.1 Seg Neutrophils % 70.5 H Seg Neutrophils # 7.6 VBG pH 7.385 Urine Color Straw Urine Turbidity Clear Urine pH 5.[address] [place] 1.030 Urine Protein <15 mg/dl Urine Glucose (UA) >=500 Urine Ketones Neg Urine Blood Neg Urine Nitrite Neg Urine Bilirubin Neg Urine Urobilinogen < 2.0 Ur Leukocyte Esterase Neg Urine WBC (Auto) 1.0 Urine RBC (Auto) 2.0 U Epithel Cells (Auto) < 1.0 Urine Mucus Few Laboratory Results - last 24 hr 05/31/19 05/31/19 05/31/19 08:36 08:36 09:29 WBC 10.7 RBC 5.74 H Hgb 14.7 Hct 45.3 MCV 79 L MCH 26 L MCHC 32 RDW 18.0 H Plt Count 239 Lymph % (Auto) 18.5 [place] % (Auto) 9.5 H Eos % (Auto) 0.7 Baso % (Auto) 0.8 Lymph # 2.0 [place] # 1.0 H Eos # 0.1 Baso # 0.1 Seg Neutrophils % 70.5 H Seg Neutrophils # 7.6 VBG pH 7.385 Sodium Potassium Chloride Carbon Dioxide Anion Gap BUN Creatinine Estimated GFR BUN/Creatinine Ratio Glucose Calcium Magnesium Total Bilirubin Direct Bilirubin Indirect Bilirubin AST ALT Alkaline Phosphatase Total Protein Albumin Albumin/Globulin Ratio Urine Color Straw Urine Turbidity Clear Urine pH 5.[address] [place] 1.030 Urine Protein <15 mg/dl Urine Glucose (UA) >=500 Urine Ketones Neg Urine Blood Neg Urine Nitrite Neg Urine Bilirubin Neg Urine Urobilinogen < 2.0 Ur Leukocyte Esterase Neg Urine WBC (Auto) 1.0 Urine RBC (Auto) 2.0 U Epithel Cells (Auto) < 1.0 Urine Mucus Few 05/31/19 09:57 WBC RBC Hgb Hct MCV MCH MCHC RDW Plt Count Lymph % (Auto) [place] % (Auto) Eos % (Auto) Baso % (Auto) Lymph # [place] # Eos # Baso # Seg Neutrophils % Seg Neutrophils # VBG pH Sodium 128 L Potassium 4.4 Chloride 92.2 L Carbon Dioxide 21 L Anion Gap 21 BUN 16 Creatinine 0.9 Estimated GFR > 60 BUN/Creatinine Ratio 16 Glucose 466 H Calcium 9.5 Magnesium 2.00 Total Bilirubin 0.40 Direct Bilirubin < 0.2 Indirect Bilirubin 0.2 AST 15 ALT 18 Alkaline Phosphatase 111 Total Protein 8.0 Albumin 4.0 Albumin/Globulin Ratio 1.0 Urine Color Urine Turbidity Urine pH Ur Specific [place] Urine Protein Urine Glucose (UA) Urine Ketones Urine Blood Urine Nitrite Urine Bilirubin Urine Urobilinogen Ur Leukocyte Esterase Urine WBC (Auto) Urine RBC (Auto) U Epithel Cells (Auto) Urine Mucus Critical care attestation.: If time is entered above; I have spent that time in minutes in the direct care of this critically ill patient, excluding procedure time. ED Disposition Clinical Impression: DKA, type 2, not at goal Gout flare Qualifiers: Gout site: knee Gout etiology: unspecified cause Laterality: right Qualified Code(s): M10.9 - Gout, unspecified Cardiomyopathy Qualifiers: Cardiomyopathy type: unspecified Qualified Code(s): I42.9 - Cardiomyopathy, unspecified Disposition: OP ADMIT IP TO THIS HOSP Is pt being admited?: Yes Does the pt Need Aspirin: Yes Condition: Stable Instructions: Diabetes Mellitus Type 2 in Adults (ED) Referrals: PRIMARY CARE, [Primary Care Provider] - 3-5 Days Time of Disposition: 14:16
[2019-05-31 10:12] LABS: Bilirubin,Urine NEG (Negative); Blood,Urine NEG (Negative); Color,Urine Straw (Yellow); Mucus,Urine FEW /HPF; Protein,Urine <15 mg/dL mg/dL (Negative); Urobilinogen,Urine < 2.0 mg/dL (<2.0)
[2019-05-31 13:00] LABS: BUN/Creatinine Ratio 16; Blood Urea Nitrogen 16 mg/dL (9-20)
[2019-05-31 13:21] LABS: Alanine Aminotransferase 18 units/L (7-56); Calcium 9.5 mg/dL (8.4-10.2); Hemolysis Index 6
[2019-05-31 13:27] LABS: Bilirubin,Direct < 0.2 mg/dL (0-0.2)
[2019-05-31] MEDS ORDERED: SODIUM CHLORIDE 0.9% 1000 ML 1,000 ML IV ONE (14:14)
[2019-05-31] MEDS ORDERED: INSULIN REGULAR, HUMAN 100 UNITS/1 ML IV ONE (14:15)
[2019-05-31] MEDS ORDERED: ASPIRIN 325 MG TAB PO ONE (14:16)
--- NOTE | 2019-05-31 16:26 | XRay Report ---
CHEST 1 VIEW 05/31/2019 3:31 PM INDICATION / CLINICAL INFORMATION: hypertension. COMPARISON: 2 views of the chest from 05/01/2019. FINDINGS: SUPPORT DEVICES: None. HEART / MEDIASTINUM: No significant abnormality. LUNGS / PLEURA: No significant pulmonary or pleural abnormality. No pneumothorax. ADDITIONAL FINDINGS: No significant additional findings. IMPRESSION: No acute abnormality of the chest. Signer Name: Alberto Sanchez MD Signed: 05/31/2019 4:22 PM Workstation Name: [id number]
[2019-05-31] MEDS ORDERED: MORPHINE 2 MG/1 ML INJ IV ONE (17:34)
[2019-05-31] MEDS ORDERED: ONDANSETRON 4 MG/2 ML INJ IV ONE (17:34)
[2019-05-31] MEDS ORDERED: ONDANSETRON 4 MG/2 ML INJ ONE (17:45)
[2019-05-31] MEDS ORDERED: ASPIRIN 325 MG TAB ONE (17:45)
[2019-05-31] MEDS ORDERED: INSULIN REGULAR, HUMAN 100 UNITS/1 ML ONE (17:46)
[2019-05-31] MEDS ORDERED: MORPHINE 2 MG/1 ML INJ ONE (17:46)
[2019-05-31] MEDS ORDERED: SODIUM CHLORIDE 0.9% 1000 ML 1,000 ML ONE (17:47)
[2019-05-31] MEDS ORDERED: HYDROmorphone 1 MG/1 ML INJ IV PRN (19:52)
[2019-05-31] MEDS ORDERED: ACETAMINOPHEN 325 MG TAB PO PRN (19:52)
[2019-05-31] MEDS ORDERED: ONDANSETRON 4 MG/2 ML INJ IV PRN (19:52)
[2019-05-31] MEDS ORDERED: LISINOPRIL 5 MG TAB PO SCH (20:00)
[2019-05-31] MEDS ORDERED: SODIUM CHLORIDE 0.9% 1000 ML 1,000 ML IV SCH (20:00)
[2019-05-31] MEDS: APIXABAN 5 MG TAB PO SCH (22:08)
[2019-05-31] MEDS: allopurinoL 100 MG TAB PO SCH (22:08)
[2019-05-31] MEDS: FAMOTIDINE 20 MG/2 ML INJ IV SCH (22:09)
[2019-05-31] MEDS: COLCHICINE 0.6 MG CAP PO SCH (22:09)
[2019-05-31] MEDS: FUROSEMIDE 40 MG TAB PO SCH (22:09)
[2019-05-31] MEDS: INSULIN LISPRO 100 UNIT/ML SUB-Q SCH (22:10)
[2019-06-01] MEDS: oxyCODONE /ACETAMINOPHEN 5-325MG TAB PO PRN ×3 (04:35→21:07)
--- NOTE | 2019-06-01 05:23 | Event Note ---
Date: 05/31/19 See H/p in reports New onset Diabetes Htn Acute Gout
--- NOTE | 2019-06-01 06:26 | History and Physical Report ---
CHIEF COMPLAINT: 1. Right foot pain. 2. Noncompliance with his insulin medication. 3. Severe weakness. 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 Right great toe pain persists, going on for the last 4 days. The patient thinks it is his gout attack. The patient was taking some prednisone in the past for the gout attacks. The patient also has insulin-dependent diabetes but not taking insulin because he is not comfortable taking insulin. His blood glucose levels have been high in the Emergency Room around 466. No fever or chills. No shortness of breath. No recent travel. PAST MEDICAL HISTORY: As mentioned significant for congestive heart failure, atrial fibrillation, hypertension, gout and insulin-dependent diabetes. PAST SURGICAL HISTORY: Significant for none. SOCIAL HISTORY: Former smoker. No alcohol, no recreational drugs. FAMILY HISTORY: Significant for hypertension. REVIEW OF SYSTEMS: Significant for right great toe pain, generalized weakness, polyuria, polyphagia and polydipsia. No fever or chills. A 14-point review of systems done. Otherwise negative. PHYSICAL EXAMINATION: GENERAL: Middle-aged male, obese, cooperative during examination. VITAL SIGNS: Blood pressure is 126/83, temperature is 98, pulse is 102, respiratory rate is 18, sats are 96%. HEENT: Unremarkable. Pupils equal and reactive. NECK: Supple. No lymphadenopathy, no thyromegaly. LUNGS: Clear to auscultation and percussion. Good air entry. CARDIOVASCULAR: S1, S2 heard. No gallop, no murmur, no rub. Apical impulse in left fifth intercostal space and midclavicular line. ABDOMEN: Soft and benign. No hepatosplenomegaly. No guarding, no rigidity. Hernial orifices are normal. EXTREMITIES: Right great toe warm to touch. Pedal pulses are well felt. CENTRAL NERVOUS SYSTEM: Alert and oriented x 4, nonfocal exam. SKIN: Normal. LABORATORY DATA: Significant for white count of 10,700, H and H is 14.7 and 45.3, platelet count is 239,000. Sodium is 128, potassium is 4.4, chloride is 92.2. BUN and creatinine 16 and 0.9, glucose is 466, A1c is 18.4. Magnesium is 2.0. LFTs are normal. Urine shows negative ketones, glucose more than 500. Chest x-ray shows no acute findings. No infiltrates. ASSESSMENT AND PLAN: 1. Uncontrolled diabetes bordering on nonketotic hyperosmolar state. The patient initiated on insulin 70/30 twice a day along with Accu-Cheks 4 times a day with high dose sliding scale coverage. Hemoglobin A1c is 18. The patient needs tighter control. He was initially admitted to be adjusted upwards depending on his response. The patient is on 12 units b.i.d. 2. Hyponatremia, probably secondary to high blood glucose levels of 466. Gentle hydration. The patient's sodium may correct with correction of blood glucose levels. Repeat BMP in the morning. 3. Hypertension. Continue antihypertensives. Blood pressure check. 4. Congestive heart failure. Continue Lasix and potassium. 5. Gout. The patient on allopurinol 100 mg once a day, colchicine 0.6 twice a day. No prednisone because of the high glucose levels. 6. Atrial fibrillation. Continue Eliquis. 7. Deep venous thrombosis prophylaxis. The patient already on Eliquis. Also, gastrointestinal prophylaxis initiated. In summary, the patient has uncontrolled diabetes, acute gout, congestive heart failure, atrial fibrillation, hypertension. JOB# [id number] [place]/[facility]N [facility]
[2019-06-01 06:44] LABS: Basophils # (Auto) 0.1 K/mm3 (0.0-0.1); Basophils % (Auto) 0.9 % (0.0-1.8); Eosinophils # (Auto) 0.1 K/mm3 (0.0-0.4); Hematocrit 44.2 % (35.5-45.6); Hemoglobin 14.7 gm/dl (11.8-15.2); Lymphocytes # (Auto) 2.1 K/mm3 (1.2-5.4); Lymphocytes % (Auto) 21.8 % (13.4-35.0); Mean Corpuscular HGB Conc 33 % (32-34); Mean Corpuscular Volume 78 fl (84-94); Monocytes # (Auto) 0.8 K/mm3 (0.0-0.8); Monocytes % (Auto) 8.1 % (0.0-7.3); Platelet Count 214 K/mm3 (140-440); Red Blood Count 5.67 M/mm3 (3.65-5.03); Red Cell Distribution Width 17.7 % (13.2-15.2)
[2019-06-01 07:18] LABS: Alanine Aminotransferase 18 units/L (7-56); Albumin 3.7 g/dL (3.9-5); BUN/Creatinine Ratio 15; Blood Urea Nitrogen 12 mg/dL (9-20); Calcium 9.1 mg/dL (8.4-10.2); Hemolysis Index 5
[2019-06-01] MEDS: INSULIN LISPRO 100 UNIT/ML SUB-Q SCH ×4 (07:30→21:11)
[2019-06-01] MEDS: FAMOTIDINE 20 MG/2 ML INJ IV SCH ×2 (10:37→21:06)
[2019-06-01] MEDS: APIXABAN 5 MG TAB PO SCH ×2 (10:37→21:06)
[2019-06-01] MEDS: INSULIN NPH/REGULAR 70/30 INJ SUB-Q SCH ×2 (10:37→21:08)
[2019-06-01] MEDS: METOPROLOL TARTRATE 50 MG TAB PO SCH ×2 (10:37→21:04)
[2019-06-01] MEDS: PANTOPRAZOLE 40 MG TAB PO SCH (10:37)
[2019-06-01] MEDS: POTASSIUM CHLORIDE ER 20 MEQ TAB PO SCH (10:38)
[2019-06-01] MEDS: COLCHICINE 0.6 MG CAP PO SCH ×2 (10:38→21:05)
[2019-06-01] MEDS: allopurinoL 100 MG TAB PO SCH (10:39)
[2019-06-01] MEDS: FUROSEMIDE 40 MG TAB PO SCH (10:39)
[2019-06-01] MEDS ORDERED: INDOMETHACIN 25 MG CAP PO ONE (18:00)
--- NOTE | 2019-06-01 18:30 | Progress Note ---
Assessment and Plan Assessment and plan: Patient is a 58 yo man with a history of IDDM, hypertension, afib on Eliquis, CMP and gout who presented with right knee pains typical of a gouty attack. He denies any knee trauma. He admits to noncompliance with medications especially Insulin. A1c 18. Right knee pains most likely Acute Monoarticular Arthopahty/Gouty attack: treat with colchine, give indocin x 1 continue home allopurinol, should be on 300mg/day instead of 100mg/day given the frequency of gouty attacks per patient AFib with RVR, non-adherence to medical therapy: he is refusing to wear tele monitor, restart home meds and Eliquis Uncontrolled IDDM with a1c 18: counseling done. Anticipated d/c in 1-2 days History Interval history: Patient was seen and examined. Follow-up on current diagnosis of Gouty attack right knee. No Overnight events reported to me. Patient denies any chest pain, shortness breath, nausea/vomiting or severe headaches. Imaging, nursing note, chart, labs and old chart reviewed. Discussed with patient. Hospitalist Physical - Physical exam Narrative exam: Gen: WDWN, NAD, Awake, Alert, Orientated HEENT: NCAT, EOMI, PERRL, OP Clear Neck: supple, no adenopathy, no thyromegaly, no JVD CVS/Heart: irregular irregular, normal S1S2, pulses present bilaterally Chest/Lungs: CTA B, Symmetrical chest expansion, good air entry bilaterally GI/Abdomen: soft, NTND, good bowel sounds, no guarding or rebound /Bladder: no suprapubic tenderness, no CVA or paraspinal tenderness Extermity/Skin: right knee is warm, tender, LROM and redness MSK: FROM x 4 Neuro: CN 2-12 grossly intact, no new focal deficits Psych: calm - Constitutional Vitals: Temp Pulse Resp BP Pulse Ox 98.5 F 77 18 105/56 95 06/01/19 17:13 06/01/19 17:13 06/01/19 17:13 06/01/19 17:13 06/01/19 17:13 Results - Labs CBC & Chem 7: 06/01/19 05:22 06/01/19 05:22 Labs: Laboratory Last Values WBC 9.9 K/mm3 (4.5-11.0) 11/06/19 05:22 RBC 5.67 M/mm3 (3.65-5.03) H 06/01/19 05:22 Hgb 14.7 gm/dl (11.8-15.2) 06/01/19 05:22 Hct 44.2 % (35.5-45.6) 06/01/19 05:22 MCV 78 fl (84-94) L 06/01/19 05:22 MCH 26 pg (28-32) L 06/01/19 05:22 MCHC 33 % (32-34) 06/01/19 05:22 RDW 17.7 % (13.2-15.2) H 06/01/19 05:22 Plt Count 214 K/mm3 (140-440) 06/01/19 05:22 Lymph % (Auto) 21.8 % (13.4-35.0) 06/01/19 05:22 [place] % (Auto) 8.1 % (0.0-7.3) H 06/01/19 05:22 Eos % (Auto) 1.0 % (0.0-4.3) 06/01/19 05:22 Baso % (Auto) 0.9 % (0.0-1.8) 06/01/19 05:22 Lymph # 2.1 K/mm3 (1.2-5.4) 06/01/19 05:22 [place] # 0.8 K/mm3 (0.0-0.8) 06/01/19 05:22 Eos # 0.1 K/mm3 (0.0-0.4) 06/01/19 05:22 Baso # 0.1 K/mm3 (0.0-0.1) 06/01/19 05:22 Seg Neutrophils % 68.2 % (40.0-70.0) 06/01/19 05:22 Seg Neutrophils # 6.7 K/mm3 (1.8-7.7) 06/01/19 05:22 VBG pH 7.385 (7.320-7.420) 05/31/19 08:36 Sodium 134 mmol/L (137-145) L 06/01/19 05:22 Potassium 4.0 mmol/L (3.6-5.0) 06/01/19 05:22 Chloride 95.7 mmol/L (98-107) L 06/01/19 05:22 Carbon Dioxide 21 mmol/L (22-30) L 06/01/19 05:22 Anion Gap 21 mmol/L 06/01/19 05:22 BUN 12 mg/dL (9-20) 06/01/19 05:22 Creatinine 0.8 mg/dL (0.8-1.5) 06/01/19 05:22 Estimated GFR > 60 ml/min 06/01/19 05:22 BUN/Creatinine Ratio 15 % 06/01/19 05:22 Glucose 276 mg/dL (75-100) H 06/01/19 05:22 POC Glucose 377 (70-105) H 06/01/19 16:34 Hemoglobin A1c 18.4 % (4-6) H 05/31/19 08:36 Calcium 9.1 mg/dL (8.4-10.2) 06/01/19 05:22 Magnesium 2.00 mg/dL (1.7-2.3) 05/31/19 09:57 Total Bilirubin 0.40 mg/dL (0.1-1.2) 06/01/19 05:22 Direct Bilirubin < 0.2 mg/dL (0-0.2) 05/31/19 09:57 Indirect Bilirubin 0.2 mg/dL 05/31/19 09:57 AST 18 units/L (5-40) 06/01/19 05:22 ALT 18 units/L (7-56) 06/01/19 05:22 Alkaline Phosphatase 102 units/L (35-129) 06/01/19 05:22 Total Protein 7.8 g/dL (6.3-8.2) 06/01/19 05:22 Albumin 3.7 g/dL (3.9-5) L 06/01/19 05:22 Albumin/Globulin Ratio 0.9 % 06/01/19 05:22 Urine Color Straw (Yellow) 05/31/19 09:29 Urine Turbidity Clear (Clear) 05/31/19 09:29 Urine pH 5.0 (5.0-7.0) 05/31/19 09:29 Ur Specific [place] 1.030 (1.003-1.030) 05/31/19 09:29 Urine Protein <15 mg/dl mg/dL (Negative) 05/31/19 09:29 Urine Glucose (UA) >=500 mg/dL (Negative) 05/31/19 09: Urine Ketones Neg mg/dL (Negative) 05/31/19 09:29 Urine Blood Neg (Negative) 05/31/19 09:29 Urine Nitrite Neg (Negative) 05/31/19 09:29 Urine Bilirubin Neg (Negative) 05/31/19 09: Urine Urobilinogen < 2.0 mg/dL (<2.0) 05/31/19 09:29 Ur Leukocyte Esterase Neg (Negative) 05/31/19 09:29 Urine WBC (Auto) 1.0 /HPF (0.0-6.0) 05/31/19 09: Urine RBC (Auto) 2.0 /HPF (0.0-6.0) 05/31/19 09: U Epithel Cells (Auto) < 1.0 /HPF (0-13.0) 05/31/19 09: Urine Mucus Few /HPF 05/31/19 09:29 Active Medications - Current Medications Current Medications: Generic Name Dose Route Start Last Admin Trade Name Freq PRN Reason Stop Dose Admin Acetaminophen 650 mg 05/31/19 19:52 Tylenol PO Q4H PRN Pain MILD(1-3)/Fever >100.5/HOLLAND Allopurinol 100 mg 05/31/19 20:00 06/01/19 10:39 Zyloprim PO 100 mg QDAY JANINE Administration Apixaban 5 mg 05/31/19 22:00 06/01/19 10:37 Eliquis PO 5 mg Q12HR JANINE Administration Protocol Colchicine 0.6 mg 05/31/19 22:00 06/01/19 10:38 Colchicine PO 0.6 mg BID JANINE Administration Famotidine 20 mg 05/31/19 22:00 06/01/19 10:37 Pepcid IV 20 mg BID JANINE Administration Furosemide 40 mg 05/31/19 20:00 06/01/19 10:39 Lasix PO 40 mg QDAY JANINE Administration Hydromorphone HCl 0.5 mg 05/31/19 19:52 Dilaudid IV Q3H PRN Pain , Severe (7-10) Sodium Chloride 1,000 mls @ 100 mls/hr 05/31/19 20:00 Nacl 0.9% 1000 Ml IV DIRECT JANINE Insulin Human Isoph/Insulin Regular 12 unit 06/01/19 08:00 06/01/19 10:37 Humulin 70/30 SUB-Q 12 unit BIDDIAB JANINE Administration Insulin Human Lispro 0 unit 05/31/19 22:00 06/01/19 17:52 Humalog SUB-Q 8 unit ACHS JANINE Administration Protocol Lisinopril 2.5 mg 05/31/19 20:00 06/01/19 10:38 Zestril PO 2.5 mg QDAY JANINE Administration Metoprolol Tartrate 12.5 mg 05/31/19 22:00 06/01/19 10:37 Metoprolol PO 12.5 mg BID JANINE Administration Ondansetron HCl 4 mg 05/31/19 19:52 Zofran IV Q8H PRN Nausea And Vomiting Oxycodone/Acetaminophen 1 tab 05/31/19 19:52 06/01/19 11:15 Percocet 5/325 PO 1 tab Q6H PRN Administration Pain, Moderate (4-6) Pantoprazole Sodium 40 mg 06/01/19 10:00 06/01/19 10:37 Protonix PO 40 mg QDAY JANINE Administration Potassium Chloride 20 meq 06/01/19 10:00 06/01/19 10:38 K-Dur PO 20 meq QDAY JANINE Administration Sodium Chloride 10 ml 05/31/19 22:00 06/01/19 10:38 Sodium Chloride Flush Syringe 10 Ml IV 10 ml BID JANINE Administration Sodium Chloride 10 ml 05/31/19 19:52 Sodium Chloride Flush Syringe 10 Ml IV PRN PRN LINE FLUSH Nutrition/Malnutrition Assess - Dietary Evaluation Nutrition/Malnutrition Findings: Nutrition Notes Start: 06/01/19 09:53 Freq: Status: Active Protocol: Document 06/01/19 09:53 DW (Rec: 06/01/19 10:04 DW [id number]) Co-Sign 06/01/19 09:53 LP Nutrition Notes Need for Assessment generated from: MD Order,Education Initial or Follow up Brief Note Current Diagnosis Diabetes,Hypertension,Heart Failure Other Pertinent Diagnosis Gout Current Diet Cardiac/Consistent CHO Labs/Tests A1C: 18.4 Glu: 276 Pertinent Medications Lasix Height 6 ft 2 in Weight 128.82 kg Reading Body Weight (kg) 86.36 BMI 36.4 Subjective/Other Information MD consult for DM education Upon arrival pt stated he consumed 100% of his breakfast and was 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 Pt stated he had not received any prior education about DM. Burn Absent Trauma Absent #1 Nutrition Diagnosis Food and nutrition-related knowledge deficit Etiology pt unaware of CHO counting and A1C As Evidenced by Signs and Symptoms pt needed DM education and had A1C 18.4 and Glu 276 Nutrition Intervention Teaching Recipient Patient Learning Readiness Good Teaching Methods Discussion,Handout Response to Teaching Verbalize understanding Education Handouts Provided CHO counting, Hyperglycemic Symptoms, Taking Care of Feet w/ DM Barriers to Learning No Barriers RD phone number provided Yes Patient aware of follow up options Yes Anticipated Discharge Needs: Cardiac/Consistent CHO Revisit per MD consult or patient Sign Off request:
[2019-06-02 08:24] VITALS: BP 116/80
[2019-06-02] MEDS: INSULIN LISPRO 100 UNIT/ML SUB-Q SCH (09:06)
[2019-06-02] MEDS: METOPROLOL TARTRATE 50 MG TAB PO SCH (09:43)
[2019-06-02] MEDS: COLCHICINE 0.6 MG CAP PO SCH (09:43)
[2019-06-02] MEDS: allopurinoL 100 MG TAB PO SCH (09:43)
[2019-06-02] MEDS: POTASSIUM CHLORIDE ER 20 MEQ TAB PO SCH (09:44)
[2019-06-02] MEDS: PANTOPRAZOLE 40 MG TAB PO SCH (09:44)
[2019-06-02] MEDS: oxyCODONE /ACETAMINOPHEN 5-325MG TAB PO PRN (09:44)
[2019-06-02] MEDS: FUROSEMIDE 40 MG TAB PO SCH (09:44)
[2019-06-02] MEDS: APIXABAN 5 MG TAB PO SCH (09:45)
[2019-06-02] MEDS: FAMOTIDINE 20 MG/2 ML INJ IV SCH (09:45)
[2019-06-02] MEDS: INSULIN NPH/REGULAR 70/30 INJ SUB-Q SCH (09:45)
--- NOTE | 2019-06-02 10:49 | Discharge Summary ---
Providers - Providers Date of Admission: 05/31/19 14:17 Date of discharge: 06/02/19 Attending physician: MARIETTA DUNAWAY 05/31/19 Consult to Case Management [CONS] Routine Services Needed at Discharge: Apartment Maintenance Manager Notified:: returned case inspector 05/31/19 20:22 Consult to Dietitian/Nutrition [CONS] Routine Physician Instructions: Reason For Exam: new onset diabetes Reason for Consult: Diet education Primary care physician: SPINDRAW OPERATOR Hospitalization Condition: Stable Hospital course: Patient is a 58 yo man with a history of IDDM, hypertension, afib on Eliquis, CMP and gout who presented with right knee pains typical of a gouty attack. He denies any knee trauma. He admits to noncompliance with medications especially Insulin. A1c 18. Discharge Diagnoses: Right knee pains most likely Acute Monoarticular Arthopahty/Gouty attack: treat with colchine, given indocin x 1 which helped continue home allopurinol, should be on 300mg/day instead of 100mg/day given the frequency of gouty attacks per patient AFib with RVR, non-adherence to medical therapy: he is refusing to wear tele monitor, restart home meds and Eliquis Uncontrolled IDDM with a1c 18: counseling done. Hypertension heart disease Disposition: DC- TO HOME OR SELFCARE Time spent for discharge: 36 minutes Core Measure Documentation - Palliative Care Palliative Care/ Comfort Measures: Not Applicable - Core Measures Any of the following diagnoses?: none - VTE Discharge Requirements Deep Vein Thrombosis/Pulmonary Embolism Present on Admission: No Has pt received <5 days of overlap therapy or INR<2.0: No Anticoagulant overlap therapy prescribed at discharge: No Contraindication No Overlap Therapy order at DC: Not Indicated Exam - Physical Exam Narrative exam: Gen: WDWN, NAD, Awake, Alert, Orientated HEENT: NCAT, EOMI, PERRL, OP Clear Neck: supple, no adenopathy, no thyromegaly, no JVD CVS/Heart: irregular irregular, normal S1S2, pulses present bilaterally Chest/Lungs: CTA B, Symmetrical chest expansion, good air entry bilaterally GI/Abdomen: soft, NTND, good bowel sounds, no guarding or rebound /Bladder: no suprapubic tenderness, no CVA or paraspinal tenderness Extermity/Skin: right knee is warm, tender, LROM and redness MSK: FROM x 4 Neuro: CN 2-12 grossly intact, no new focal deficits Psych: calm - Constitutional Vitals: Temp Pulse Resp BP Pulse Ox 97.9 F 100 H 18 116/80 99 06/02/19 08:21 06/02/19 09:43 06/02/19 08:21 06/02/19 09:43 06/02/19 08:21 Plan Activity: other (no strenous activity unless cleared by PCP) Diet: low salt, diabetic Special Instructions: record blood sugar diary Follow up with: MIRANDA ROB MD [Primary Care Provider] - 3-5 Days AARON BARRY MD [Staff Physician] - 7 Days Prescriptions: Colchicine 0.6 mg PO BID 7 Days capsule Apixaban [Eliquis] 5 mg PO Q12HR #60 tablet Lispro Insulin [HumaLOG] 1 dose SUB-Q ACHS PRN #1000 units PRN Reason: Hyperglycemia Potassium Chloride [K-Dur] 20 meq PO QDAY #30 tablet Furosemide [Lasix TAB] 40 mg PO QDAY #30 tablet Metoprolol [Lopressor TAB] 0.5 tab PO BID #60 tablet Insulin NPH/Regular [NovoLIN 70/30] 12 unit SUB-Q BIDDIAB #1000 units oxyCODONE /ACETAMINOPHEN [Percocet 5/325 mg] 1 tab PO Q6H PRN 3 Days #12 tablet PRN Reason: Pain , Severe (7-10) Pantoprazole [Protonix TAB] 40 mg PO QDAY #30 tablet Allopurinol [Zyloprim] 100 mg PO QDAY #30 tablet
== END 2019-06-02 12:05 | disposition home or self-care (01) | DRG 553 ==
LOC: ED 07:54 → 4A 14:17
PROVIDERS: ADMIT Internal Medicine; ATTEND Internal Medicine
DX: M12.861 Other specific arthropathies, not elsewhere classified, right knee (principal); E11.10 Type 2 diabetes mellitus with ketoacidosis without coma; E87.1 Hypo-osmolality and hyponatremia; M10.9 Gout, unspecified; I48.91 Unspecified atrial fibrillation; I50.9 Heart failure, unspecified; I11.0 Hypertensive heart disease with heart failure; G43.909 Migraine, unspecified, not intractable, without status migrainosus; E66.9 Obesity, unspecified; I42.8 Other cardiomyopathies; Z68.35 Body mass index [BMI] 35.0-35.9, adult; Z79.4 Long term (current) use of insulin; Z79.01 Long term (current) use of anticoagulants; Z91.14 Patient's other noncompliance with medication regimen; Z79.899 Other long term (current) drug therapy; Z82.49 Family history of ischemic heart disease and other diseases of the circulatory system
CPT/HCPCS: 36415; 71045; 80048; 80053; 80076; 81001; 82805; 82962; 83036; 83735; 85025; 93005; 93010; G0378; J1815; J2270; J2405; J7030

== ENCOUNTER 2019-07-22 14:27 | Emergency (ER) | payer MEDICAID ==
--- NOTE | 2019-07-22 15:12 | Event Note ---
ED Screening Note ED Screening Note: SOB that began yesterday + CP described as a throbbing no leg swelling PMHx Afib, gout, DM, HTN no allergies to meds non smoker non drinker no drug use This initial assessment/diagnostic orders/clinical plan/treatment(s) is/are subject to change based on patients health status, clinical progression and re- assessment by fellow clinical providers in the ED. Further treatment and workup at subsequent clinical providers discretion. Patient/guardian urged not to elope from the ED as their condition may be serious if not clinically assessed and managed. Initial orders include: CP protocol
--- NOTE | 2019-07-22 15:47 | XRay Report ---
CHEST 2 VIEWS INDICATION / CLINICAL INFORMATION: SOB, CP. COMPARISON: 05/31/2019 FINDINGS: SUPPORT DEVICES: None. HEART / MEDIASTINUM: There is now moderate cardiomegaly with pulmonary venous hypertension. LUNGS / PLEURA: Slight prominence of interstitial markings diffusely suggesting pulmonary edema. No p neumothorax. ADDITIONAL FINDINGS: No significant additional findings. IMPRESSION: 1. Cardiomegaly and interstitial pulmonary edema. Signer Name: Carl Drake MD Signed: 07/22/2019 3:42 PM Workstation Name: [id number]
--- NOTE | 2019-07-22 17:40 | Emergency Department Report ---
ED Chest Pain HPI - General Chief Complaint: Chest Pain Stated Complaint: CHEST PAIN Time Seen by Provider: 07/22/19 15:11 Source: patient Mode of arrival: Wheelchair Limitations: No Limitations - History of Present Illness Initial Comments: 58-year-old male presents to the emergency department by EMS from home with complaint of some midsternal chest pain and shortness of breath that has been going on since yesterday morning. He received a full dose aspirin in route with EMS and says that the symptoms have not resolved but they are improved. The patient also, secondarily, complains of some pain and swelling to the top of his left foot that he believes is a gout exacerbation. Patient has a past medical history of gout, CHF, diabetes, migraine headaches, hypertension, previous atrial fibrillation/flutter, dilated nonischemic cardiomyopathy. The patient previously was following outpatient with Dr. Richmond of [facility] car diology but the patient says that he now follows with [facility]. He denies any tobacco or illicit drug use. No recent travel or sick contacts at home. The patient has been compliant with his medications including his Eliquis. Severity scale (0 -10): 9 - Related Data Previous Rx's Medication Instructions Recorded Last Taken Type lisinopriL [Zestril TAB] 2.5 mg PO QDAY #30 tablet 03/01/19 Unknown Rx Acetaminophen [Acetaminophen TAB] 2 tab PO Q4H PRN #15 tablet 06/02/19 Unknown Rx Apixaban [Eliquis] 5 mg PO Q12HR #60 tablet 06/02/19 Unknown Rx Colchicine 0.6 mg PO BID 7 Days capsule 06/02/19 Unknown Rx Furosemide [Lasix TAB] 40 mg PO QDAY #30 tablet 06/02/19 Unknown Rx Insulin NPH/Regular [NovoLIN 70/30] 12 unit SUB-Q BIDDIAB #1000 units 06/02/19 Unknown Rx Lispro Insulin [HumaLOG] 1 dose SUB-Q ACHS PRN #1000 units 06/02/19 Unknown Rx Metoprolol [Lopressor TAB] 0.5 tab PO BID #60 tablet 06/02/19 Unknown Rx Pantoprazole [Protonix TAB] 40 mg PO QDAY #30 tablet 06/02/19 Unknown Rx Potassium Chloride [K-Dur] 20 meq PO QDAY #30 tablet 06/02/19 Unknown Rx oxyCODONE /ACETAMINOPHEN [Percocet 1 tab PO Q6H PRN 3 Days #12 tablet 06/02/19 Unknown Rx 5/325 mg] Colchicine 1.2 mg PO ONCE #3 capsule 07/22/19 Unknown Rx allopurinoL [Zyloprim] 100 mg PO QDAY #20 tablet 07/22/19 Unknown Rx Allergies Allergy/AdvReac Type Severity Reaction Status Date / Time No Known Allergies Allergy Verified 05/04/19 15:58 Heart Score - HEART Score History: Slightly suspicious EKG: Normal Age: 45-65 Risk factors: 1-2 risk factors Troponin: < normal limit HEART Score: 2 - Critical Actions Critical Actions: 0-3 pts:0.9-1.7%risk of adverse cardiac event.Candidate for discharge ED Review of Systems ROS: Stated complaint: CHEST PAIN Other details as noted in HPI Comment: All other systems reviewed and negative Constitutional: denies: chills, fever Eyes: denies: eye pain, vision change ENT: denies: ear pain, throat pain Respiratory: shortness of breath. denies: cough Cardiovascular: denies: chest pain, palpitations Gastrointestinal: denies: abdominal pain, vomiting Genitourinary: denies: dysuria, discharge Musculoskeletal: joint swelling (left foot). denies: back pain Skin: denies: rash, lesions Neurological: denies: headache, weakness ED Past Medical Hx - Past Medical History Hx Hypertension: Yes Hx Heart Attack/AMI: No Hx Congestive Heart Failure: Yes Hx Diabetes: Yes Hx Deep Vein Thrombosis: No Hx Liver Disease: No Hx Arthritis: Yes (gout) Hx Headaches / Migraines: Yes Hx Seizures: No Hx Asthma: No Hx COPD: No Hx Dementia: No Hx HIV: No Additional medical history: AFib gout back and left leg pain. OBESITY - Surgical History Hx Coronary Stent: No Hx Pacemaker: No Hx Internal Defibrillator: No - Social History Smoking Status: Never Smoker Substance Use Type: None - Medications Home Medications: Home Medications Medication Instructions Recorded Confirmed Last Taken Type lisinopriL [Zestril TAB] 2.5 mg PO QDAY #30 tablet 03/01/19 05/31/19 Unknown Rx Acetaminophen [Acetaminophen TAB] 2 tab PO Q4H PRN #15 tablet 06/02/19 Unknown Rx Apixaban [Eliquis] 5 mg PO Q12HR #60 tablet 06/02/19 Unknown Rx Colchicine 0.6 mg PO BID 7 Days capsule 06/02/19 Unknown Rx Furosemide [Lasix TAB] 40 mg PO QDAY #30 tablet 06/02/19 Unknown Rx Insulin NPH/Regular [NovoLIN 70/30] 12 unit SUB-Q BIDDIAB #1000 units 06/02/19 Unknown Rx Lispro Insulin [HumaLOG] 1 dose SUB-Q ACHS PRN #1000 units 06/02/19 Unknown Rx Metoprolol [Lopressor TAB] 0.5 tab PO BID #60 tablet 06/02/19 Unknown Rx Pantoprazole [Protonix TAB] 40 mg PO QDAY #30 tablet 06/02/19 Unknown Rx Potassium Chloride [K-Dur] 20 meq PO QDAY #30 tablet 06/02/19 Unknown Rx oxyCODONE /ACETAMINOPHEN [Percocet 1 tab PO Q6H PRN 3 Days #12 tablet 06/02/19 Unknown Rx 5/325 mg] Colchicine 1.2 mg PO ONCE #3 capsule 07/22/19 Unknown Rx allopurinoL [Zyloprim] 100 mg PO QDAY #20 tablet 07/22/19 Unknown Rx ED Physical Exam - General Limitations: No Limitations - Other Other exam information: GENERAL: The patient is well-developed well-nourished. HEENT: Normocephalic. Atraumatic. Patient has moist mucous membranes. EYES: Extraocular motions are intact. . NECK: Supple. Trachea is midline CHEST/LUNGS: Clear to auscultation. There is no respiratory distress noted. HEART/CARDIOVASCULAR: Regular. There is no tachycardia. ABDOMEN: Abdomen is soft, nontender. Patient has normal bowel sounds. There is no abdominal distention. SKIN: Skin is warm and dry. There is some mild swelling to the dorsum of the left midfoot but no erythema, warmth or fluctuance. NEURO: The patient is awake, alert, and oriented. The patient is cooperative. Normal speech. MUSCULOSKELETAL: There is no tenderness or deformity. There is no evidence of acute injury. ED Course Vital Signs 07/22/19 07/22/19 07/22/19 15:11 17:08 17:11 Temperature 97.6 F Pulse Rate 63 90 Respiratory 18 17 Rate Blood Pressure 125/73 Blood Pressure 125/73 112/74 [Right] O2 Sat by Pulse 97 97 100 Oximetry 07/22/19 07/22/1919 17:15 17:31 17:45 Temperature Pulse Rate 92 H 91 H 90 Respiratory 16 17 20 Rate Blood Pressure 117/84 117/84 124/90 Blood Pressure [Right] O2 Sat by Pulse 98 100 Oximetry 07/22/19 07/22/19 07/22/19 18:01 18:15 18:31 Temperature Pulse Rate 95 H 88 88 Respiratory 12 23 22 Rate Blood Pressure 122/83 122/83 122/83 Blood Pressure [Right] O2 Sat by Pulse 100 98 100 Oximetry HAZEL score - Hazel Score Age > 65: (0) No Aspirin use within the Past 7 Days: (0) No 3 or more CAD Risk Factors: (1) Yes 2 or more Angina events in past 24 hrs: (1) Yes Known CAD with more than 50% Stenosis: (0) No Elevated Cardiac Markers: (0) No ST Deviation Greater than 0.5mm: (0) No HAZEL Score: 2 ED Medical Decision Making - Lab Data Result diagrams: 07/22/19 17:27 07/22/19 17:27 - EKG Data -: EKG Interpreted by Me EKG shows normal: sinus rhythm (PVCs), axis, intervals, QRS complexes, ST-T waves Rate: normal - EKG Data When compared to previous EKG there are: no significant change Interpretation: unchanged when compared t (05/31/19) - Radiology Data Radiology results: image reviewed interpreted by me: Chest x-ray shows some mild cardiomegaly and some interstitial edema. No overt pleural effusions, pneumonia or pneumothorax. - Medical Decision Making This patient presents with some midsternal chest pain and some mild intermittent shortness of breath since yesterday. At the time of my examination the patient says he is feeling improved, but it is not quite resolved. He also seems to be more concerned about his left foot and possible gout. EKG did not show any signs of ST elevation AL. Chest x-ray shows some cardiomegaly and interstitial edema but no pleural effusions, pneumonia, pneumothorax. Patient's labs were mostly unremarkable except for a elevated BNP of about 2300. He also has an elevated uric acid level that could be consistent with his complaint of a gout flareup. I spoke with the patient regarding all of the lab and imaging results and we discussed disposition. At this time the patient says that he has no ch est pain or shortness of breath. He has a low heart and HAZEL score. The patient has good outpatient cardiology follow-up with both [facility] and [facility]. I discussed giving the patient some IV Lasix to start diuresis but the patient declines and says he would rather just take his own medications at home. He was given some colchicine and allopurinol for his gout. 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 - Differential Diagnosis CHF, pneumonia, AL, GERD Critical Care Time: No Critical care attestation.: If time is entered above; I have spent that time in minutes in the direct care of this critically ill patient, excluding procedure time. ED Disposition Clinical Impression: CHF exacerbation Qualifiers: Heart failure type: unspecified Qualified Code(s): I50.9 - Heart failure, unspecified Gout flare Qualifiers: Gout site: unspecified site Encounter type: initial encounter Disposition: TO HOME OR SELFCARE Is pt being admited?: No Condition: Stable Instructions: Heart Failure (ED), Acute Gouty Arthritis (ED) Additional Instructions: Please follow-up with your primary care physician and glass pulverizer equipment operator in the next few days. Return to the emergency department with any return of your chest pain, shortness of breath, worsening of her symptoms, or with any acute distress. Prescriptions: Colchicine 1.2 mg PO ONCE #3 capsule allopurinoL [Zyloprim] 100 mg PO QDAY #20 tablet Referrals: FRED RICHMOND MD [Staff Physician] - 2-3 Days Time of Disposition: 19:09
[2019-07-22 18:00] LABS: Basophils % (Auto) 0.3 % (0.0-1.8); Eosinophils # (Auto) 0.1 K/mm3 (0.0-0.4); Hemoglobin 13.5 gm/dl (11.8-15.2); Lymphocytes # (Auto) 2.7 K/mm3 (1.2-5.4); Mean Corpuscular HGB Conc 32 % (32-34); Mean Corpuscular Volume 84 fl (84-94); Monocytes # (Auto) 0.8 K/mm3 (0.0-0.8); Monocytes % (Auto) 8.4 % (0.0-7.3); Platelet Count 207 K/mm3 (140-440); Red Blood Count 4.99 M/mm3 (3.65-5.03)
[2019-07-22 18:12] LABS: INR 1.41 (0.87-1.13)
[2019-07-22 18:14] LABS: Partial Thromboplastin Time 30.9 Sec. (24.2-36.6)
[2019-07-22 18:20] LABS: Alanine Aminotransferase 71 units/L (7-56); Albumin 4.3 g/dL (3.9-5); BUN/Creatinine Ratio 30; Blood Urea Nitrogen 21 mg/dL (9-20); Calcium 9.6 mg/dL (8.4-10.2); Hemolysis Index 24
[2019-07-22 18:46] VITALS: BP 122/83
[2019-07-22] MEDS ORDERED: MORPHINE 4 MG/1 ML INJ IV ONE (18:47)
[2019-07-22] MEDS ORDERED: FUROSEMIDE 40 MG/4 ML INJ IV ONE (18:47)
== END 2019-07-22 19:26 | disposition home or self-care (01) ==
LOC: ED 14:27
DX: I11.0 Hypertensive heart disease with heart failure (principal); I50.9 Heart failure, unspecified; M10.9 Gout, unspecified; E11.9 Type 2 diabetes mellitus without complications; G43.909 Migraine, unspecified, not intractable, without status migrainosus; Z79.899 Other long term (current) drug therapy
CPT/HCPCS: 36415; 71046; 80053; 83880; 84484; 84550; 85025; 85610; 85730; 93005; 93010

== ENCOUNTER 2019-09-20 12:05 | Emergency (ER) | payer MEDICAID ==
[2019-09-20] MEDS ORDERED: ASPIRIN 325 MG TAB PO ONE (12:27)
--- NOTE | 2019-09-20 12:27 | Event Note ---
ED Screening Note Date of service: 09/20/19 Time: 12:25 ED Screening Note: 58 y o male presents with chest pain , abd pin and back pain x 2 days cc of 10/10 chest pain PMH:DM, Gout, ekg completed This initial assessment/diagnostic orders/clinical plan/treatment(s) is/are subject to change based on patients health status, clinical progression and re- assessment by fellow clinical providers in the ED. Further treatment and workup at subsequent clinical providers discretion. Patient/guardian urged not to elope from the ED as their condition may be serious if not clinically assessed and managed. Initial orders include: labs main ed eval
--- NOTE | 2019-09-20 12:58 | XRay Report ---
CHEST 2 VIEWS INDICATION / CLINICAL INFORMATION: Chest Pain. COMPARISON: 2 views of the chest from 07/22/2019. FINDINGS: SUPPORT DEVICES: None. HEART / MEDIASTINUM: Stable. LUNGS / PLEURA: Mild interstitial edema is again noted. No significant pleural effusion. No pneumotho rax. ADDITIONAL FINDINGS: No significant additional findings. IMPRESSION: Stable cardiomegaly with similar mild pulmonary edema. Signer Name: Alberto Sanchez MD Signed: 09/20/2019 12:54 PM Workstation Name: [id number]
[2019-09-20 12:59] LABS: Basophils # (Auto) 0.1 K/mm3 (0.0-0.1); Basophils % (Auto) 1.2 % (0.0-1.8); Eosinophils # (Auto) 0.1 K/mm3 (0.0-0.4); Eosinophils % (Auto) 1.1 % (0.0-4.3); Hematocrit 43.8 % (35.5-45.6); Hemoglobin 13.8 gm/dl (11.8-15.2); Lymphocytes # (Auto) 2.2 K/mm3 (1.2-5.4); Lymphocytes % (Auto) 22.4 % (13.4-35.0); Mean Corpuscular HGB Conc 32 % (32-34); Mean Corpuscular Volume 82 fl (84-94); Monocytes # (Auto) 0.7 K/mm3 (0.0-0.8); Monocytes % (Auto) 7.3 % (0.0-7.3); Platelet Count 242 K/mm3 (140-440); Red Blood Count 5.36 M/mm3 (3.65-5.03); Red Cell Distribution Width 15.6 % (13.2-15.2)
[2019-09-20 13:12] LABS: INR 1.67 (0.87-1.13)
[2019-09-20 13:18] LABS: BUN/Creatinine Ratio 14; Blood Urea Nitrogen 14 mg/dL (9-20); Calcium 9.5 mg/dL (8.4-10.2); Hemolysis Index 16
[2019-09-20] MEDS ORDERED: PANTOPRAZOLE 40 MG TAB PO ONE (17:00)
[2019-09-20] MEDS ORDERED: HYDROcodone/ACETAMINOPHEN 5-325 MG TAB PO ONE (17:00)
[2019-09-20] MEDS ORDERED: ONDANSETRON 4 MG ODT TAB PO ONE (17:00)
--- NOTE | 2019-09-20 17:38 | XRay Report ---
XR spine thoracic 3V INDICATION / CLINICAL INFORMATION: midline tspine ttp. COMPARISON: None available. FINDINGS: BONES/JOINT(S): No acute fracture or subluxation. Moderate diffuse thoracic spine spondylosis with mu ltilevel anterior and lateral bridging osteophytes. SOFT TISSUES: No significant abnormality. ADDITIONAL FINDINGS: None. Signer Name: Elmo Bowen MD Signed: 09/20/2019 5:33 PM Workstation Name: [id number]
--- NOTE | 2019-09-20 19:16 | Emergency Department Report ---
ED General Adult HPI - General Chief complaint: Chest Pain Stated complaint: CHEST PAIN Time Seen by Provider: 09/20/19 16:49 Source: patient Mode of arrival: Ambulatory Limitations: No Limitations - History of Present Illness Initial comments: Patient presents to the emergency department chief complaint of left-sided chest pain that has been present for the last 3 days and continuous in nature. Patient scribes chest pain is dull in nature and denies any radiation. Patient also complains of thoracic back pain is been present for the last 2 months. Patient denies any shortness of breath, nominal pain, headache. -: Sudden, days(s) (3) Location: chest Radiation: non-radiation Severity scale (0 -10): 7 Quality: dull Consistency: constant Improves with: none Worsens with: none Associated Symptoms: denies other symptoms Treatments Prior to Arrival: none - Related Data Home Medications Medication Instructions Recorded Confirmed Last Taken AtorvaSTATin 40 mg PO DAILY 09/20/19 09/20/19 09/20/19 Furosemide [Lasix TAB] 20 mg PO QDAY 09/20/19 09/20/19 metFORMIN 1,000 mg PO BID 09/20/19 09/20/19 09/20/19 Previous Rx's Medication Instructions Recorded Last Taken Type lisinopriL [Zestril TAB] 2.5 mg PO QDAY #30 tablet 03/01/19 09/20/19 Rx Acetaminophen [Acetaminophen TAB] 2 tab PO Q4H PRN #15 tablet 06/02/19 Unknown Rx Apixaban [Eliquis] 5 mg PO Q12HR #60 tablet 06/02/19 09/20/19 Rx Colchicine 0.6 mg PO BID 7 Days capsule 06/02/19 Unknown Rx Insulin NPH/Regular [NovoLIN 70/30] 12 unit SUB-Q BIDDIAB #1000 units 06/02/19 Unknown Rx Lispro Insulin [HumaLOG] 1 dose SUB-Q ACHS PRN #1000 units 06/02/19 Unknown Rx Metoprolol [Lopressor TAB] 0.5 tab PO BID #60 tablet 06/02/19 09/20/19 Rx Pantoprazole [Protonix TAB] 40 mg PO QDAY #30 tablet 06/02/19 Unknown Rx Potassium Chloride [K-Dur] 20 meq PO QDAY #30 tablet 06/02/19 Unknown Rx Colchicine 1.2 mg PO ONCE #3 capsule 07/22/19 Unknown Rx allopurinoL [Zyloprim] 100 mg PO QDAY #20 tablet 07/22/19 Unknown Rx HYDROcodone/APAP 5-325 [[place] 1 each PO Q6HR PRN #12 tablet 09/20/19 Unknown Rx 5/325] Allergies Allergy/AdvReac Type Severity Reaction Status Date / Time No Known Allergies Allergy Verified 05/04/19 15:58 ED Review of Systems ROS: Stated complaint: CHEST PAIN Other details as noted in HPI Comment: All other systems reviewed and negative Constitutional: denies: chills, fever Eyes: denies: eye pain, eye discharge, vision change ENT: denies: ear pain, throat pain Respiratory: denies: cough, shortness of breath, wheezing Cardiovascular: chest pain. denies: palpitations Endocrine: no symptoms reported Gastrointestinal: denies: abdominal pain, nausea, diarrhea Genitourinary: denies: urgency, dysuria Musculoskeletal: back pain. denies: joint swelling, arthralgia Skin: denies: rash, lesions Neurological: denies: headache, weakness, paresthesias Psychiatric: denies: anxiety, depression Hematological/Lymphatic: denies: easy bleeding, easy bruising ED Past Medical Hx - Past Medical History Previous Medical History?: Yes Hx Hypertension: Yes Hx Heart Attack/AMI: No Hx Congestive Heart Failure: Yes Hx Diabetes: Yes Hx Deep Vein Thrombosis: No Hx Liver Disease: No Hx Arthritis: Yes (gout) Hx Headaches / Migraines: Yes Hx Seizures: No Hx Asthma: No Hx COPD: No Hx Dementia: No Hx HIV: No Additional medical history: AFib gout back and left leg pain. OBESITY - Surgical History Past Surgical History?: No Hx Coronary Stent: No Hx Pacemaker: No Hx Internal Defibrillator: No - Social History Smoking Status: Former Smoker Substance Use Type: None - Medications Home Medications: Home Medications Medication Instructions Recorded Confirmed Last Taken Type lisinopriL [Zestril TAB] 2.5 mg PO QDAY #30 tablet 03/01/19 05/31/19 09/20/19 Rx Acetaminophen [Acetaminophen TAB] 2 tab PO Q4H PRN #15 tablet 06/02/19 Unknown Rx Apixaban [Eliquis] 5 mg PO Q12HR #60 tablet 06/02/19 09/20/19 Rx Colchicine 0.6 mg PO BID 7 Days capsule 06/02/19 Unknown Rx Insulin NPH/Regular [NovoLIN 70/30] 12 unit SUB-Q BIDDIAB #1000 units 06/02/19 Unknown Rx Lispro Insulin [HumaLOG] 1 dose SUB-Q ACHS PRN #1000 units 06/02/19 Unknown Rx Metoprolol [Lopressor TAB] 0.5 tab PO BID #60 tablet 06/02/19 09/20/19 Rx Pantoprazole [Protonix TAB] 40 mg PO QDAY #30 tablet 06/02/19 Unknown Rx Potassium Chloride [K-Dur] 20 meq PO QDAY #30 tablet 06/02/19 Unknown Rx Colchicine 1.2 mg PO ONCE #3 capsule 07/22/19 Unknown Rx allopurinoL [Zyloprim] 100 mg PO QDAY #20 tablet 07/22/19 Unknown Rx AtorvaSTATin 40 mg PO DAILY 09/20/19 09/20/19 09/20/19 History Furosemide [Lasix TAB] 20 mg PO QDAY 09/20/19 09/20/19 History HYDROcodone/APAP 5-325 [[place] 1 each PO Q6HR PRN #12 tablet 09/20/19 Unknown Rx 5/325] metFORMIN 1,000 mg PO BID 09/20/19 09/20/19 09/20/19 History ED Physical Exam - General Limitations: No Limitations General appearance: alert, in no apparent distress - Head Head exam: Present: atraumatic, normocephalic - Eye Eye exam: Present: normal appearance, PERRL, EOMI - ENT ENT exam: Present: mucous membranes moist - Neck Neck exam: Present: normal inspection - Respiratory Respiratory exam: Present: normal lung sounds bilaterally. Absent: respiratory distress - Cardiovascular Cardiovascular Exam: Present: regular rate, normal rhythm. Absent: systolic murmur, diastolic murmur, rubs, gallop - GI/Abdominal GI/Abdominal exam: Present: soft, normal bowel sounds. Absent: distended, tenderness - Rectal Rectal exam: Present: deferred - Extremities Exam Extremities exam: Present: normal inspection - Back Exam Back exam: Present: vertebral tenderness (Tenderness to palpation of the midline T-spine) - Neurological Exam Neurological exam: Present: alert, oriented X3, CN II-XII intact. Absent: motor sensory deficit - Psychiatric Psychiatric exam: Present: normal affect, normal mood - Skin Skin exam: Present: warm, dry, intact, normal color. Absent: rash ED Course Vital Signs 09/20/19 09/20/19 09/20/19 12:24 16:07 17:49 Temperature 97.9 F Pulse Rate 99 H 92 H Respiratory 99 H 18 16 Rate Blood Pressure 121/92 Blood Pressure 114/81 [Left] O2 Sat by Pulse 100 98 Oximetry 09/20/19 18:31 Temperature Pulse Rate 91 H Respiratory 16 Rate Blood Pressure Blood Pressure 120/84 [Left] O2 Sat by Pulse 96 Oximetry ED Medical Decision Making - Lab Data Result diagrams: 09/20/19 12:32 09/20/19 12:32 Lab Results 09/20/19 09/20/19 09/20/19 Range/Units 12:32 12:32 12:32 WBC 10.0 (4.5-11.0) K/mm3 RBC 5.36 H (3.65-5.03) M/mm3 Hgb 13.8 (11.8-15.2) gm/dl Hct 43.8 (35.5-45.6) % MCV 82 L (84-94) fl MCH 26 L (28-32) pg MCHC 32 (32-34) % RDW 15.6 H (13.2-15.2) % Plt Count 242 (140-440) K/mm3 Lymph % (Auto) 22.4 (13.4-35.0) % [place] % (Auto) 7.3 (0.0-7.3) % Eos % (Auto) 1.1 (0.0-4.3) % Baso % (Auto) 1.2 (0.0-1.8) % Lymph # 2.2 (1.2-5.4) K/mm3 [place] # 0.7 (0.0-0.8) K/mm3 Eos # 0.1 (0.0-0.4) K/mm3 Baso # 0.1 (0.0-0.1) K/mm3 Seg Neutrophils % 68.0 (40.0-70.0) % Seg Neutrophils # 6.8 (1.8-7.7) K/mm3 PT 20.0 H (12.2-14.9) Sec. INR 1.67 H (0.87-1.13) APTT 34.0 (24.2-36.6) Sec. Sodium 143 (137-145) mmol/L Potassium 4.3 (3.6-5.0) mmol/L Chloride 107.9 H (98-107) mmol/L Carbon Dioxide 19 L (22-30) mmol/L Anion Gap 20 mmol/L BUN 14 (9-20) mg/dL Creatinine 1.0 (0.8-1.5) mg/dL Estimated GFR > 60 ml/min BUN/Creatinine Ratio 14 % Glucose 136 H (75-100) mg/dL Calcium 9.5 (8.4-10.2) mg/dL Troponin T < 0.010 (0.00-0.029) ng/mL 09/20/19 09/20/19 Range/Units 16:10 18:23 WBC (4.5-11.0) K/mm3 RBC (3.65-5.03) M/mm3 Hgb (11.8-15.2) gm/dl Hct (35.5-45.6) % MCV (84-94) fl MCH (28-32) pg MCHC (32-34) % RDW (13.2-15.2) % Plt Count (140-440) K/mm3 Lymph % (Auto) (13.4-35.0) % [place] % (Auto) (0.0-7.3) % Eos % (Auto) (0.0-4.3) % Baso % (Auto) (0.0-1.8) % Lymph # (1.2-5.4) K/mm3 [place] # (0.0-0.8) K/mm3 Eos # (0.0-0.4) K/mm3 Baso # (0.0-0.1) K/mm3 Seg Neutrophils % (40.0-70.0) % Seg Neutrophils # (1.8-7.7) K/mm3 PT (12.2-14.9) Sec. INR (0.87-1.13) APTT (24.2-36.6) Sec. Sodium (137-145) mmol/L Potassium (3.6-5.0) mmol/L Chloride (98-107) mmol/L Carbon Dioxide (22-30) mmol/L Anion Gap mmol/L BUN (9-20) mg/dL Creatinine (0.8-1.5) mg/dL Estimated GFR ml/min BUN/Creatinine Ratio % Glucose (75-100) mg/dL Calcium (8.4-10.2) mg/dL Troponin T < 0.010 < 0.010 (0.00-0.029) ng/mL - EKG Data -: EKG Interpreted by Me EKG shows normal: sinus rhythm Rate: normal - Radiology Data Radiology results: report reviewed - Medical Decision Making Results discussed with patient Critical care attestation.: If time is entered above; I have spent that time in minutes in the direct care of this critically ill patient, excluding procedure time. ED Disposition Clinical Impression: Nonspecific chest pain, Back pain Disposition: TO HOME OR SELFCARE Is pt being admited?: No Does the pt Need Aspirin: No Condition: Stable Instructions: Chest Pain (ED), Noncardiac Chest Pain (ED), Back Pain (ED) Additional Instructions: return if worse Referrals: PRIMARY CAREMD [Primary Care Provider] - 3-5 Days [facility] [Provider Group] - 3-5 Days [facility] [Provider Group] - 3-5 Days DAO AGRAWAL MD [Staff Physician] - 3-5 Days Time of Disposition: 19:16
[2019-09-20 19:34] VITALS: BP 130/93
== END 2019-09-20 19:34 | disposition home or self-care (01) ==
LOC: ED 12:05
DX: R07.89 Other chest pain (principal); M54.6 Pain in thoracic spine; I48.91 Unspecified atrial fibrillation; I10 Essential (primary) hypertension; E11.9 Type 2 diabetes mellitus without complications; M10.9 Gout, unspecified; G43.909 Migraine, unspecified, not intractable, without status migrainosus; E66.9 Obesity, unspecified; Z68.41 Body mass index [BMI] 40.0-44.9, adult; Z87.891 Personal history of nicotine dependence; Z79.899 Other long term (current) drug therapy; Z79.4 Long term (current) use of insulin
CPT/HCPCS: 36415; 71046; 72072; 80048; 84484; 85025; 85610; 85730; 93005; 93010; Q0162

== ENCOUNTER 2020-06-11 00:14 | Emergency (ER) | payer MEDICAID ==
[2020-06-11] MEDS ORDERED: ASPIRIN 325 MG TAB PO ONE (01:41)
[2020-06-11 02:23] LABS: BUN/Creatinine Ratio 15; Blood Urea Nitrogen 17 mg/dL (9-20); Calcium 9.6 mg/dL (8.4-10.2); Hemolysis Index 6
--- NOTE | 2020-06-11 02:30 | XRay Report ---
CHEST 1 VIEW 06/11/2020 2:19 AM INDICATION / CLINICAL INFORMATION: Chest Pain. COMPARISON: Chest x-ray on 01/17/2020 FINDINGS: SUPPORT DEVICES: None. HEART / MEDIASTINUM: Stable mild cardiomegaly. LUNGS / PLEURA: No significant pulmonary or pleural abnormality. No pneumothorax. ADDITIONAL FINDINGS: No significant additional findings. IMPRESSION: 1. No acute findings. Stable mild cardiomegaly. Signer Name: Elmo Bowen MD Signed: 06/11/2020 2:26 AM Workstation Name: [email or web address]
[2020-06-11 02:34] LABS: Basophils # (Auto) 0.1 K/mm3 (0.0-0.1); Basophils % (Auto) 1.1 % (0.0-1.8); Eosinophils # (Auto) 0.1 K/mm3 (0.0-0.4); Eosinophils % (Auto) 0.8 % (0.0-4.3); Hematocrit 46.1 % (35.5-45.6); Lymphocytes # (Auto) 2.3 K/mm3 (1.2-5.4); Lymphocytes % (Auto) 19.6 % (13.4-35.0); Mean Corpuscular HGB Conc 33 % (32-34); Mean Corpuscular Volume 85 fl (84-94); Monocytes # (Auto) 0.9 K/mm3 (0.0-0.8); Monocytes % (Auto) 7.7 % (0.0-7.3); Platelet Count 189 K/mm3 (140-440); Red Blood Count 5.43 M/mm3 (3.65-5.03); Red Cell Distribution Width 15.5 % (13.2-15.2)
[2020-06-11 09:32] VITALS: BP 114/85
[2020-06-11] MEDS ORDERED: HYDROcodone/ACETAMINOPHEN 5-325 MG TAB ONE (09:33)
[2020-06-11] MEDS ORDERED: HYDROcodone/ACETAMINOPHEN 5-325 MG TAB PO ONE (09:33)
--- NOTE | 2020-06-11 09:54 | Emergency Department Report ---
ED Chest Pain HPI - General Chief Complaint: Chest Pain Stated Complaint: CHEST PAIN Time Seen by Provider: 06/11/20 09:12 Source: patient Mode of arrival: Ambulatory Limitations: No Limitations - History of Present Illness Initial Comments: This is a 59-year-old -[place] male who presents to the emergency department via EMS from home with 2 complaints. First, the patient says that he has been having a 1 week history of some intermittent midsternal chest pain. The patient was given a full dose aspirin and a sublingual nitroglycerin by EMS last night and the patient says that the chest pain has since resolved. He has a past medical history of dilated nonischemic cardiomyopathy, CHF, diabetes, hypertension, previous atrial fibrillation status post cardioversion, anticoagulated on Eliquis, and gout. The patient previously saw [facility] but switched to cardiology at [facility] about 1 year ago. The patient says that he has not seen his collection officer since the pandemic began. Secondly, the patient complains of some left wrist pain and swelling that has been going on since yesterday. He has not taken anything for symptoms prior to presentation. He says that it feels similar to his previous gout attacks but they often occur on different joints. No recent travel or sick contacts at home. Severity scale (0 -10): 10 - Related Data Home Medications Medication Instructions Recorded Confirmed Last Taken AtorvaSTATin 40 mg PO DAILY 09/20/19 01/17/20 09/20/19 Previous Rx's Medication Instructions Recorded Last Taken Type lisinopriL [Zestril TAB] 2.5 mg PO QDAY #30 tablet 03/01/19 09/20/19 Rx Apixaban [Eliquis] 5 mg PO Q12HR #60 tablet 06/02/19 09/20/19 Rx Lispro Insulin [HumaLOG] 1 dose SUB-Q ACHS PRN #1000 units 06/02/19 Unknown Rx Potassium Chloride [K-Dur] 20 meq PO QDAY #30 tablet 06/02/19 Unknown Rx Furosemide [Lasix TAB] 40 mg PO QDAY #30 01/18/20 Unknown Rx Insulin NPH/Regular [NovoLIN 70/30] 12 unit SUB-Q BIDDIAB #100 units 01/18/20 Unknown Rx Melatonin/Pyridoxine HCl (B6) 1 each PO QHS #30 tablet 01/18/20 Unknown Rx [Melatonin 3 mg Tablet] Spironolactone [Aldactone] 12.5 mg PO QDAY #30 tablet 01/18/20 Unknown Rx allopurinoL [Zyloprim] 100 mg PO QDAY #30 tablet 01/18/20 Unknown Rx carvediloL [Coreg] 12.5 mg PO BID #60 tablet 01/18/20 Unknown Rx guaiFENesin [Robitussin] 100 mg PO TID PRN #100 ml 01/18/20 Unknown Rx metFORMIN 1,000 mg PO BID #30 01/18/20 Unknown Rx oxyCODONE /ACETAMINOPHEN [Percocet 1 tab PO Q8H PRN #10 tablet 01/18/20 Unknown Rx 5/325 mg] Colchicine 1.2 mg PO ONCE #3 capsule 06/11/20 Unknown Rx HYDROcodone/APAP 5-325 [[place] 1 each PO Q6HR PRN #10 tablet 06/11/20 Unknown Rx 5/325] Allergies Allergy/AdvReac Type Severity Reaction Status Date / Time No Known Allergies Allergy Verified 05/04/19 15:58 Heart Score - HEART Score History: Slightly suspicious EKG: Non-specific Age: 45-65 Risk factors: 1-2 risk factors Troponin: < normal limit HEART Score: 3 ED Review of Systems ROS: Stated complaint: CHEST PAIN Other details as noted in HPI Comment: All other systems reviewed and negative Constitutional: denies: chills, fever Eyes: denies: eye pain, vision change ENT: denies: ear pain, throat pain Respiratory: denies: cough, shortness of breath Cardiovascular: chest pain, edema (left wrist) Gastrointestinal: denies: abdominal pain, vomiting Genitourinary: denies: dysuria, discharge Musculoskeletal: joint swelling, arthralgia Skin: denies: rash, lesions Neurological: denies: headache, weakness ED Past Medical Hx - Past Medical History Previous Medical History?: Yes Hx Hypertension: Yes Hx Heart Attack/AMI: No Hx Congestive Heart Failure: Yes Hx Diabetes: Yes Hx Deep Vein Thrombosis: No Hx Liver Disease: No Hx Arthritis: Yes (gout) Hx Headaches / Migraines: Yes Hx Seizures: No Hx Asthma: No Hx COPD: No Hx Dementia: No Hx HIV: No Additional medical history: AFib gout back and left leg pain. OBESITY - Surgical History Past Surgical History?: No Hx Coronary Stent: No Hx Pacemaker: No Hx Internal Defibrillator: No - Social History Smoking Status: Never Smoker Substance Use Type: None - Medications Home Medications: Home Medications Medication Instructions Recorded Confirmed Last Taken Type lisinopriL [Zestril TAB] 2.5 mg PO QDAY #30 tablet 03/01/19 01/17/20 09/20/19 Rx Apixaban [Eliquis] 5 mg PO Q12HR #60 tablet 06/02/19 01/17/20 09/20/19 Rx Lispro Insulin [HumaLOG] 1 dose SUB-Q ACHS PRN #1000 units 06/02/19 01/17/20 Unknown Rx Potassium Chloride [K-Dur] 20 meq PO QDAY #30 tablet 06/02/19 01/17/20 Unknown Rx AtorvaSTATin 40 mg PO DAILY 09/20/19 01/17/20 09/20/19 History Furosemide [Lasix TAB] 40 mg PO QDAY #30 01/18/20 Unknown Rx Insulin NPH/Regular [NovoLIN 70/30] 12 unit SUB-Q BIDDIAB #100 units 01/18/20 Unknown Rx Melatonin/Pyridoxine HCl (B6) 1 each PO QHS #30 tablet 01/18/20 Unknown Rx [Melatonin 3 mg Tablet] Spironolactone [Aldactone] 12.5 mg PO QDAY #30 tablet 01/18/20 Unknown Rx allopurinoL [Zyloprim] 100 mg PO QDAY #30 tablet 01/18/20 Unknown Rx carvediloL [Coreg] 12.5 mg PO BID #60 tablet 01/18/20 Unknown Rx guaiFENesin [Robitussin] 100 mg PO TID PRN #100 ml 01/18/20 Unknown Rx metFORMIN 1,000 mg PO BID #30 01/18/20 Unknown Rx oxyCODONE /ACETAMINOPHEN [Percocet 1 tab PO Q8H PRN #10 tablet 01/18/20 Unknown Rx 5/325 mg] Colchicine 1.2 mg PO ONCE #3 capsule 06/11/20 Unknown Rx HYDROcodone/APAP 5-325 [[place] 1 each PO Q6HR PRN #10 tablet 06/11/20 Unknown Rx 5/325] ED Physical Exam - General Limitations: No Limitations - Other Other exam information: GENERAL: The patient is well-developed well-nourished. HENT: Normocephalic. Atraumatic. Patient has moist mucous membranes. EYES: Extraocular motions are intact. NECK: Supple. Trachea is midline. CHEST/LUNGS: Clear to auscultation. There is no respiratory distress noted. HEART/CARDIOVASCULAR: Regular. There is no tachycardia. There is no murmur. ABDOMEN: Abdomen is soft, nontender. Patient has normal bowel sounds. SKIN: Skin is warm and dry. There is some nonpitting swelling and warmth to the left wrist, but there is no erythema or fluctuance. NEURO: The patient is awake, alert, and oriented. The patient is cooperative. The patient has no focal neurologic deficits. Normal speech. MUSCULOSKELETAL: Tenderness to palpation to the left wrist. Radial pulse +2/4 and capillary refill less than 2 seconds to the affected left hand and wrist. There is no limitation range of motion. ED Course Vital Signs 06/11/20 06/11/20 06/11/20 01:40 09:30 09:36 Temperature 98.2 F 98.1 F Pulse Rate 98 H 96 H Respiratory 18 18 18 Rate Blood Pressure 123/85 114/85 [Left] O2 Sat by Pulse 97 100 Oximetry - Reevaluation(s) Reevaluation #1: 06/11/20 11:20 Lab Results 06/11/20 06/11/20 06/11/20 Range/Units 01:45 01:45 04:52 WBC 11.6 H (4.5-11.0) K/mm3 RBC 5.43 H (3.65-5.03) M/mm3 Hgb 15.0 (11.8-15.2) gm/dl Hct 46.1 H (35.5-45.6) % MCV 85 (84-94) fl MCH 28 (28-32) pg MCHC 33 (32-34) % RDW 15.5 H (13.2-15.2) % Plt Count 189 (140-440) K/mm3 Lymph % (Auto) 19.6 (13.4-35.0) % [place] % (Auto) 7.7 H (0.0-7.3) % Eos % (Auto) 0.8 (0.0-4.3) % Baso % (Auto) 1.1 (0.0-1.8) % Lymph # (Auto) 2.3 (1.2-5.4) K/mm3 [place] # (Auto) 0.9 H (0.0-0.8) K/mm3 Eos # (Auto) 0.1 (0.0-0.4) K/mm3 Baso # (Auto) 0.1 (0.0-0.1) K/mm3 Seg Neutrophils % 70.8 H (40.0-70.0) % Seg Neutrophils # 8.2 H (1.8-7.7) K/mm3 Sodium 138 (137-145) mmol/L Potassium 4.1 (3.6-5.0) mmol/L Chloride 103.3 (98-107) mmol/L Carbon Dioxide 21 L (22-30) mmol/L Anion Gap 18 mmol/L BUN 17 (9-20) mg/dL Creatinine 1.1 (0.8-1.3) mg/dL Estimated GFR > 60 ml/min BUN/Creatinine Ratio 15 % Glucose 206 H (75-100) mg/dL Uric Acid (3.5-7.6) mg/dL Calcium 9.6 (8.4-10.2) mg/dL Troponin T < 0.010 < 0.010 (0.00-0.029) ng/mL 06/11/20 06/11/20 Range/Units 08:45 09:50 WBC (4.5-11.0) K/mm3 RBC (3.65-5.03) M/mm3 Hgb (11.8-15.2) gm/dl Hct (35.5-45.6) % MCV (84-94) fl MCH (28-32) pg MCHC (32-34) % RDW (13.2-15.2) % Plt Count (140-440) K/mm3 Lymph % (Auto) (13.4-35.0) % [place] % (Auto) (0.0-7.3) % Eos % (Auto) (0.0-4.3) % Baso % (Auto) (0.0-1.8) % Lymph # (Auto) (1.2-5.4) K/mm3 [place] # (Auto) (0.0-0.8) K/mm3 Eos # (Auto) (0.0-0.4) K/mm3 Baso # (Auto) (0.0-0.1) K/mm3 Seg Neutrophils % (40.0-70.0) % Seg Neutrophils # (1.8-7.7) K/mm3 Sodium (137-145) mmol/L Potassium (3.6-5.0) mmol/L Chloride (98-107) mmol/L Carbon Dioxide (22-30) mmol/L Anion Gap mmol/L BUN (9-20) mg/dL Creatinine (0.8-1.3) mg/dL Estimated GFR ml/min BUN/Creatinine Ratio % Glucose (75-100) mg/dL Uric Acid 10.0 H (3.5-7.6) mg/dL Calcium (8.4-10.2) mg/dL Troponin T < 0.010 (0.00-0.029) ng/mL Reevaluation #2: 06/11/20 11:20 Vital Signs 06/11/20 06/11/20 06/11/20 01:40 09:30 09:36 Temperature 98.2 F 98.1 F Pulse Rate 98 H 96 H Respiratory 18 18 18 Rate Blood Pressure 123/85 114/85 [Left] O2 Sat by Pulse 97 100 Oximetry - Consultations Consultation #1: 06/11/20 11:[address] Salguero, collection officer with [facility] cardiology. Since the patient is chest pain-free, has had 3 - troponins, and has a relatively recent heart cath showing normal coronary arteries, the patient is safe for discharge home at this time from a cardiology standpoint. They have recommended follow-up in 1 week with either the cardiology team at [facility] or with Dr. Salguero. HAZEL score - Hazel Score Age > 65: (0) No Aspirin use within the Past 7 Days: (0) No 3 or more CAD Risk Factors: (1) Yes 2 or more Angina events in past 24 hrs: (1) Yes Known CAD with more than 50% Stenosis: (0) No Elevated Cardiac Markers: (0) No ST Deviation Greater than 0.5mm: (0) No HAZEL Score: 2 ED Medical Decision Making - Lab Data Result diagrams: 06/11/20 01:45 06/11/20 01:45 - EKG Data -: EKG Interpreted by Id EKG shows normal: sinus rhythm (PVCs), axis, intervals (Prolonged QTC), QRS complexes (LVH), ST-T waves Rate: normal - EKG Data When compared to previous EKG there are: no significant change Interpretation: unchanged when compared t (01/17/20) - Radiology Data Radiology results: image reviewed interpreted by me: Chest x-ray does not show any acute process. There are no pleural effusions, obvious pneumonia and there is no pneumothorax. No significant cardiomegaly. X-ray of the left wrist does not show any fracture, dislocation. There is soft tissue swelling. No subcutaneous air or signs of osteomyelitis. - Medical Decision Making Regarding the patient's left wrist pain, there is some nonpitting swelling and warmth but there is no fluctuance or erythema. X-ray shows some swelling, but no fracture, dislocation, subcutaneous air, signs of osteomyelitis. Uric acid level is 10 and this appears consistent with a gouty arthropathy. Patient will be placed on colchicine and was given outpatient follow-up with an orthopedist. Patient's chest pain resolved last night after he was given a full dose aspirin and a sublingual nitroglycerin. The chest pain has not returned and he has been in the emergency department for multiple hours even prior to my shift starting today. EKG does not have any morphology consistent with ST elevation myocardial infarction and is unchanged from previous. Chest x-ray does not show any pneumonia, pleural effusions, pneumothorax, or any other acute process. Labs have been mostly unremarkable including CBC, metabolic panel and negative troponins x3. The patient is anticoagulated on Eliquis. Vital signs have been reassuring throughout his ED course thus far. Cardiology was contacted and they agreed with the plan for outpatient follow-up. The patient will return to the emergency department with any worsening of his symptoms or with any acute distress. Critical Care Time: No Critical care attestation.: If time is entered above; I have spent that time in minutes in the direct care of this critically ill patient, excluding procedure time. ED Disposition Clinical Impression: Chest pain Qualifiers: Chest pain type: unspecified Qualified Code(s): R07.9 - Chest pain, unspecified Gout of left wrist Qualifiers: Gout etiology: unspecified cause Chronicity: acute Qualified Code(s): M10.9 - Gout, unspecified Disposition: - TO HOME OR SELFCARE Is pt being admited?: No Condition: Stable Instructions: Low-Purine Eating Plan, Uric Acid Nephropathy, Nonspecific Chest Pain, Adult, Chest Pain (ED) Additional Instructions: Please follow-up with a primary care physician in the next few days. Please follow-up with a collection officer in the next week. I have given you a referral for Dr. Salguero of [facility] cardi[facility]. Please follow-up with an orthopedist regarding your left wrist pain. Take the medications as prescribed. You have been prescribed a medication that is sedating and therefore should not be taken prior to driving, working, and responsible for children and in no way should be mixed with alcohol of any quantity. Return to the emergency department with any worsening of your symptoms, new or concerning symptoms not addressed during this current emergency department visit, or with any acute distress. Prescriptions: Colchicine 1.2 mg PO ONCE #3 capsule HYDROcodone/APAP 5-325 [[place] 5/325] 1 each PO Q6HR PRN #10 tablet PRN Reason: Pain Referrals: [facility] [Provider Group] - 3-5 Days PCP, Your [Other] - 3-5 Days ASALE SALGUERO MD [Staff Physician] - 3-5 Days [facility] ALEXANDR TERAN MD [Primary Care Provider] - 3-5 Days Time of Disposition: 11:05
--- NOTE | 2020-06-11 11:15 | XRay Report ---
LEFT WRIST 3 VIEWS INDICATION: left wrist pain and swelling. COMPARISON: None. IMPRESSION: There is moderate diffuse soft tissue swelling or edema. Normal bone mineralization. Mi ld osteoarthritic changes are identified at the left wrist. No acute osseous injury is appreciated on x-ray. If further evaluation is needed, CT or MRI is recommended. Signer Name: Regan Pleitez Jr, MD Signed: 06/11/2020 11:10 AM Workstation Name: [id number]
[2020-06-11] MEDS ORDERED: COLCHICINE 0.6 MG CAP PO ONE (11:28)
== END 2020-06-11 11:36 | disposition home or self-care (01) ==
LOC: ED 00:14
DX: R07.89 Other chest pain (principal); M10.9 Gout, unspecified
CPT/HCPCS: 36415; 71045; 80048; 84484; 84550; 85025; 93005

== ENCOUNTER 2020-06-19 01:23 | Observation (INO) | payer MEDICAID ==
[2020-06-19] MEDS ORDERED: ASPIRIN 325 MG TAB PO ONE (01:37)
--- NOTE | 2020-06-19 02:16 | XRay Report ---
CHEST 1 VIEW INDICATION: Chest Pain. COMPARISON: 06/11/2020 FINDINGS: Support devices: None. Heart: Enlarged, unchanged. Lungs/Pleura: No acute pulmonary or pleural findings. IMPRESSION: 1. No significant change. Signer Name: Prashant Rees MD Signed: 06/19/2020 2:11 AM Workstation Name: [id number]
[2020-06-19 02:42] LABS: Alanine Aminotransferase 38 units/L (7-56); Albumin 4.4 g/dL (3.9-5); BUN/Creatinine Ratio 17; Blood Urea Nitrogen 19 mg/dL (9-20); Calcium 9.9 mg/dL (8.4-10.2); Hemolysis Index 11
[2020-06-19 02:49] LABS: Basophils # (Auto) 0.2 K/mm3 (0.0-0.1); Basophils % (Auto) 1.6 % (0.0-1.8); Eosinophils # (Auto) 0.1 K/mm3 (0.0-0.4); Eosinophils % (Auto) 1.1 % (0.0-4.3); Hematocrit 44.9 % (35.5-45.6); Hemoglobin 14.2 gm/dl (11.8-15.2); Lymphocytes # (Auto) 2.4 K/mm3 (1.2-5.4); Mean Corpuscular HGB Conc 32 % (32-34); Mean Corpuscular Volume 85 fl (84-94); Monocytes # (Auto) 0.9 K/mm3 (0.0-0.8); Monocytes % (Auto) 8.8 % (0.0-7.3); Platelet Count 273 K/mm3 (140-440); Red Blood Count 5.31 M/mm3 (3.65-5.03); Red Cell Distribution Width 15.4 % (13.2-15.2)
[2020-06-19] MEDS ORDERED: ONDANSETRON 4 MG/2 ML INJ IV ONE (06:40)
--- NOTE | 2020-06-19 06:57 | Emergency Department Report ---
ED Shortness of Breath HPI - General Chief Complaint: Abdominal Pain Stated Complaint: CHEST PAIN Time Seen by Provider: 06/19/20 06:24 Source: patient Mode of arrival: Ambulatory Limitations: No Limitations - History of Present Illness Initial Comments: Patient is 59 years old male with history of congestive heart failure with EF of 15-20%, hypertension, diabetes and atrial fibrillation currently on Eliquis. Patient presented to the ER complaining of shortness of breath abdominal distention and bilateral lower extremity swelling for the last few days. 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 Patient is also complaining of substernal chest pain. Patient describes his pain as tightness with no radiation. Patient denied any fever or chills. Patient describes significant orthopnea and generalized weakness. Patient is also complaining of nausea and diarrhea. MD Complaint: shortness of breath, chest pain -: days(s) Known History Of: congestive heart failure, diabetes - Related Data Home Medications Medication Instructions Recorded Confirmed Last Taken AtorvaSTATin 40 mg PO DAILY 09/20/19 01/17/20 09/20/19 Previous Rx's Medication Instructions Recorded Last Taken Type lisinopriL [Zestril TAB] 2.5 mg PO QDAY #30 tablet 03/01/19 09/20/19 Rx Apixaban [Eliquis] 5 mg PO Q12HR #60 tablet 06/02/19 09/20/19 Rx Lispro Insulin [HumaLOG] 1 dose SUB-Q ACHS PRN #1000 units 06/02/19 Unknown Rx Potassium Chloride [K-Dur] 20 meq PO QDAY #30 tablet 06/02/19 Unknown Rx Furosemide [Lasix TAB] 40 mg PO QDAY #30 01/18/20 Unknown Rx Insulin NPH/Regular [NovoLIN 70/30] 12 unit SUB-Q BIDDIAB #100 units 01/18/20 Unknown Rx Melatonin/Pyridoxine HCl (B6) 1 each PO QHS #30 tablet 01/18/20 Unknown Rx [Melatonin 3 mg Tablet] Spironolactone [Aldactone] 12.5 mg PO QDAY #30 tablet 01/18/20 Unknown Rx allopurinoL [Zyloprim] 100 mg PO QDAY #30 tablet 01/18/20 Unknown Rx carvediloL [Coreg] 12.5 mg PO BID #60 tablet 01/18/20 Unknown Rx guaiFENesin [Robitussin] 100 mg PO TID PRN #100 ml 01/18/20 Unknown Rx metFORMIN 1,000 mg PO BID #30 01/18/20 Unknown Rx oxyCODONE /ACETAMINOPHEN [Percocet 1 tab PO Q8H PRN #10 tablet 01/18/20 Unknown Rx 5/325 mg] Colchicine 1.2 mg PO ONCE #3 capsule 06/11/20 Unknown Rx HYDROcodone/APAP 5-325 [[place] 1 each PO Q6HR PRN #10 tablet 06/11/20 Unknown Rx 5/325] Allergies Allergy/AdvReac Type Severity Reaction Status Date / Time No Known Allergies Allergy Verified 05/04/19 15:58 ED Review of Systems ROS: Stated complaint: CHEST PAIN Other details as noted in HPI Comment: All other systems reviewed and negative Constitutional: denies: chills, fever Respiratory: orthopnea, shortness of breath, SOB with exertion, SOB at rest. denies: cough, wheezing Cardiovascular: chest pain, palpitations Gastrointestinal: denies: abdominal pain, nausea, vomiting Musculoskeletal: denies: back pain Neurological: weakness. denies: headache, numbness, paresthesias, confusion, abnormal gait ED Past Medical Hx - Past Medical History Hx Hypertension: Yes Hx Heart Attack/AMI: No Hx Congestive Heart Failure: Yes Hx Diabetes: Yes Hx Deep Vein Thrombosis: No Hx Liver Disease: No Hx Arthritis: Yes (gout) Hx Headaches / Migraines: Yes Hx Seizures: No Hx Asthma: No Hx COPD: No Hx Dementia: No Hx HIV: No Additional medical history: AFib gout back and left leg pain. OBESITY - Surgical History Hx Coronary Stent: No Hx Pacemaker: No Hx Internal Defibrillator: No - Social History Smoking Status: Current Every Day Smoker Substance Use Type: Marijuana - Medications Home Medications: Home Medications Medication Instructions Recorded Confirmed Last Taken Type lisinopriL [Zestril TAB] 2.5 mg PO QDAY #30 tablet 03/01/19 01/17/20 09/20/19 Rx Apixaban [Eliquis] 5 mg PO Q12HR #60 tablet 06/02/19 01/17/20 09/20/19 Rx Lispro Insulin [HumaLOG] 1 dose SUB-Q ACHS PRN #1000 units 06/02/19 01/17/20 Unknown Rx Potassium Chloride [K-Dur] 20 meq PO QDAY #30 tablet 06/02/19 01/17/20 Unknown Rx AtorvaSTATin 40 mg PO DAILY 09/20/19 01/17/20 09/20/19 History Furosemide [Lasix TAB] 40 mg PO QDAY #30 01/18/20 Unknown Rx Insulin NPH/Regular [NovoLIN 70/30] 12 unit SUB-Q BIDDIAB #100 units 01/18/20 Unknown Rx Melatonin/Pyridoxine HCl (B6) 1 each PO QHS #30 tablet 01/18/20 Unknown Rx [Melatonin 3 mg Tablet] Spironolactone [Aldactone] 12.5 mg PO QDAY #30 tablet 01/18/20 Unknown Rx allopurinoL [Zyloprim] 100 mg PO QDAY #30 tablet 01/18/20 Unknown Rx carvediloL [Coreg] 12.5 mg PO BID #60 tablet 01/18/20 Unknown Rx guaiFENesin [Robitussin] 100 mg PO TID PRN #100 ml 01/18/20 Unknown Rx metFORMIN 1,000 mg PO BID #30 01/18/20 Unknown Rx oxyCODONE /ACETAMINOPHEN [Percocet 1 tab PO Q8H PRN #10 tablet 01/18/20 Unknown Rx 5/325 mg] Colchicine 1.2 mg PO ONCE #3 capsule 06/11/20 Unknown Rx HYDROcodone/APAP 5-325 [[place] 1 each PO Q6HR PRN #10 tablet 06/11/20 Unknown Rx 5/325] ED Physical Exam - General Limitations: No Limitations General appearance: alert, in distress (Moderate respiratory distress) - Head Head exam: Present: atraumatic, normocephalic, normal inspection - Eye Eye exam: Present: normal appearance - ENT ENT exam: Present: normal exam, normal orophraynx, mucous membranes moist - Neck Neck exam: Present: normal inspection, full ROM. Absent: tenderness, meningismus - Respiratory Respiratory exam: Present: respiratory distress. Absent: wheezes, rales, rhonchi, accessory muscle use, decreased breath sounds, prolonged expiratory - Cardiovascular Cardiovascular Exam: Present: regular rate, normal rhythm, normal heart sounds - GI/Abdominal GI/Abdominal exam: Present: soft, distended, normal bowel sounds. Absent: tende rness, guarding, rebound, rigid, mass, bruit, pulsatile mass, hernia - Extremities Exam Extremities exam: Present: full ROM, normal capillary refill, pedal edema. Absent: calf tenderness - Back Exam Back exam: Present: normal inspection, full ROM. Absent: CVA tenderness (R), CVA tenderness (L) - Neurological Exam Neurological exam: Present: alert, oriented X3, CN II-XII intact - Psychiatric Psychiatric exam: Present: normal mood - Skin Skin exam: Present: warm, intact, normal color ED Course Vital Signs 06/19/20 06/19/20 06/19/20 01:35 07:19 07:25 Temperature 98.7 F Pulse Rate 100 H Respiratory 18 20 Rate Blood Pressure 136/79 Blood Pressure [Right] O2 Sat by Pulse 96 90 Oximetry 06/19/20 07:35 Temperature Pulse Rate 93 H Respiratory 20 Rate Blood Pressure Blood Pressure 106/75 [Right] O2 Sat by Pulse 92 Oximetry ED Medical Decision Making - Lab Data Result diagrams: 06/19/20 01:54 06/19/20 01:54 - EKG Data -: EKG Interpreted by [place] EKG shows normal: sinus rhythm Rate: tachycardia - EKG Data Interpretation: no acute changes - Radiology Data Radiology results: report reviewed - Medical Decision Making Patient is 59 years old male with history of congestive heart failure with EF of 15-20%, hypertension, diabetes and atrial fibrillation currently on Eliquis. Patient presented to the ER complaining of shortness of breath abdominal distention and bilateral lower extremity swelling for the last few days. 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 Patient is also complaining of substernal chest pain. Patient describes his pain as tightness with no radiation. Patient denied any fever or chills. Patient describes significant orthopnea and generalized weakness. Patient is also complaining of nausea and diarrhea. EKG shows sinus tachycardia. Chest x-ray showed pulmonary congestion. Labs reviewed and is unremarkable except for elevated Bnp of more than 2700. Patient received Lasix 60 mg IV. I discussed the patient with Dr. Smith, he advised to admit the patient to Dr. Arita. Critical Care Time: Yes Critical care time in (mins) excluding proc time.: 30 Critical care attestation.: If time is entered above; I have spent that time in minutes in the direct care of this critically ill patient, excluding procedure time. ED Disposition Clinical Impression: Acute HFrEF (heart failure with reduced ejection fraction) Disposition: DC-09 OP ADMIT IP TO THIS HOSP Is pt being admited?: Yes Condition: Stable Referrals: PRIMARY CARE, [Primary Care Provider] - 3-5 Days
[2020-06-19 07:05] LABS: INR 1.44 (0.87-1.13)
[2020-06-19 07:06] LABS: Partial Thromboplastin Time 29.8 Sec. (24.2-36.6)
[2020-06-19 08:02] LABS: Bilirubin,Urine NEG (Negative); Blood,Urine NEG (Negative); Color,Urine Yellow (Yellow); Hyaline Casts,Urine 5 /LPF; Mucus,Urine FEW /HPF; RBC,Urine < 1.0 /HPF (0.0-6.0); Urobilinogen,Urine < 2.0 mg/dL (<2.0)
[2020-06-19] MEDS ORDERED: FUROSEMIDE 40 MG/4 ML INJ IV ONE (08:20)
[2020-06-19] MEDS ORDERED: ASPIRIN 325 MG TAB ONE (11:13)
[2020-06-19] MEDS ORDERED: oxyCODONE /ACETAMINOPHEN 5-325MG TAB ONE ×3 (11:15→20:45)
[2020-06-19] MEDS ORDERED: FUROSEMIDE 100 MG/10 ML INJ IV ONE (11:16)
[2020-06-19] MEDS ORDERED: ONDANSETRON 4 MG/2 ML INJ IV PRN (11:17)
[2020-06-19] MEDS: oxyCODONE /ACETAMINOPHEN 5-325MG TAB PO PRN ×3 (11:20→20:49)
[2020-06-19] MEDS ORDERED: ACETAMINOPHEN 325 MG TAB PO PRN ×2 (12:22→13:00)
--- NOTE | 2020-06-19 12:22 | History and Physical Report ---
History of Present Illness Date of examination: 06/19/20 Date of admission: 06/19/20 08:31 Chief complaint: cp History of present illness: Patient is 59 years old male with history of congestive heart failure with EF of 15-20%, hypertension, diabetes and atrial fibrillation currently on Eliquis who presented to the ER complaining of shortness of breath abdominal distention and bilateral lower extremity swelling for the last few days. 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 Patient is also complaining of substernal chest pain. Patient describes his pain as tightness with no radiation. Patient denied any fever or chills. Patient describes significant orthopnea and generalized weakness. Patient is also complaining of nausea and diarrhea. The patient's pain is reproducible with palpation. 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 Past History Past Medical History: heart failure, hypertension, hyperlipidemia, other (Atrial flutter, nonischemic dilated cardiomyopathy, NSVT) Past Surgical History: No surgical history Social history: no significant social history Family history: no significant family history Medications and Allergies Allergies Allergy/AdvReac Type Severity Reaction Status Date / Time No Known Allergies Allergy Verified 05/04/19 15:58 Home Medications Medication Instructions Recorded Confirmed Last Taken Type lisinopriL [Zestril TAB] 2.5 mg PO QDAY #30 tablet 03/01/19 01/17/20 09/20/19 Rx Apixaban [Eliquis] 5 mg PO Q12HR #60 tablet 06/02/19 01/17/20 09/20/19 Rx Lispro Insulin [HumaLOG] 1 dose SUB-Q ACHS PRN #1000 units 06/02/19 01/17/20 Unknown Rx Potassium Chloride [K-Dur] 20 meq PO QDAY #30 tablet 06/02/19 01/17/20 Unknown Rx AtorvaSTATin 40 mg PO DAILY 09/20/19 01/17/20 09/20/19 History Furosemide [Lasix TAB] 40 mg PO QDAY #30 01/18/20 Unknown Rx Insulin NPH/Regular [NovoLIN 70/30] 12 unit SUB-Q BIDDIAB #100 units 01/18/20 Unknown Rx Melatonin/Pyridoxine HCl (B6) 1 each PO QHS #30 tablet 01/18/20 Unknown Rx [Melatonin 3 mg Tablet] Spironolactone [Aldactone] 12.5 mg PO QDAY #30 tablet 01/18/20 Unknown Rx allopurinoL [Zyloprim] 100 mg PO QDAY #30 tablet 01/18/20 Unknown Rx carvediloL [Coreg] 12.5 mg PO BID #60 tablet 01/18/20 Unknown Rx guaiFENesin [Robitussin] 100 mg PO TID PRN #100 ml 01/18/20 Unknown Rx metFORMIN 1,000 mg PO BID #30 01/18/20 Unknown Rx oxyCODONE /ACETAMINOPHEN [Percocet 1 tab PO Q8H PRN #10 tablet 01/18/20 Unknown Rx 5/325 mg] Colchicine 1.2 mg PO ONCE #3 capsule 06/11/20 Unknown Rx HYDROcodone/APAP 5-325 [[place] 1 each PO Q6HR PRN #10 tablet 06/11/20 Unknown Rx 5/325] Active Meds: Active Medications Ondansetron HCl (Zofran) 4 mg IV Q4H PRN PRN Reason: Nausea And Vomiting Oxycodone/Acetaminophen (Percocet 5/325) 1 tab PO Q4H PRN PRN Reason: Pain, Moderate (4-6) Last Admin: 06/19/20 11:20 Dose: 1 tab Documented by: Review of Systems All systems: negative Exam - Constitutional Vitals: Temp Pulse Resp BP Pulse Ox 98.7 F 93 H 18 118/87 97 06/19/20 01:35 06/19/20 11:17 06/19/20 11:17 06/19/20 11:17 06/19/20 11:17 General appearance: Present: no acute distress, well-nourished - EENT Eyes: Present: PERRL ENT: hearing intact, clear oral mucosa - Neck Neck: Present: supple, normal ROM - Respiratory Respiratory effort: normal Respiratory: bilateral: CTA - Cardiovascular Heart Sounds: Present: S1 & S2. Absent: rub, click - Extremities Extremities: pulses symmetrical, No edema Peripheral Pulses: within normal limits - Abdominal General gastrointestinal: Present: soft, non-tender, non-distended, normal bowel sounds Male genitourinary: Present: normal - Integumentary Integumentary: Present: clear, warm, dry - Musculoskeletal Musculoskeletal: gait normal, strength equal bilaterally - Psychiatric Psychiatric: appropriate mood/affect, intact judgment & insight - Neurologic Neurologic: CNII-XII intact, moves all extremities HEART Score - HEART Score Troponin: Troponin T < 0.010 ng/mL (0.00-0.029) 06/19/20 08:42 Results - Labs CBC & Chem 7: 06/19/20 01:54 06/19/20 01:54 Labs: Laboratory Last Values WBC 10.0 K/mm3 (4.5-11.0) 06/19/20 01:54 RBC 5.31 M/mm3 (3.65-5.03) H 06/19/20 01:54 Hgb 14.2 gm/dl (11.8-15.2) 06/19/20 01:54 Hct 44.9 % (35.5-45.6) 06/19/20 01:54 MCV 85 fl (84-94) 06/19/20 01:54 MCH 27 pg (28-32) L 06/19/20 01:54 MCHC 32 % (32-34) 06/19/20 01:54 RDW 15.4 % (13.2-15.2) H 06/19/20 01:54 Plt Count 273 K/mm3 (140-440) 06/19/20 01:54 Lymph % (Auto) 24.0 % (13.4-35.0) 06/19/20 01:54 [place] % (Auto) 8.8 % (0.0-7.3) H 06/19/20 01:54 Eos % (Auto) 1.1 % (0.0-4.3) 06/19/20 01:54 Baso % (Auto) 1.6 % (0.0-1.8) 06/19/20 01:54 Lymph # (Auto) 2.4 K/mm3 (1.2-5.4) 06/19/20 01:54 [place] # (Auto) 0.9 K/mm3 (0.0-0.8) H 06/19/20 01:54 Eos # (Auto) 0.1 K/mm3 (0.0-0.4) 06/19/20 01:54 Baso # (Auto) 0.2 K/mm3 (0.0-0.1) H 06/19/20 01:54 Seg Neutrophils % 64.5 % (40.0-70.0) 06/19/20 01:54 Seg Neutrophils # 6.5 K/mm3 (1.8-7.7) 06/19/20 01:54 PT 17.5 Sec. (12.2-14.9) H 06/19/20 05:01 INR 1.44 (0.87-1.13) H 06/19/20 05:01 APTT 29.8 Sec. (24.2-36.6) 06/19/20 05:01 Sodium 132 mmol/L (137-145) L 06/19/20 01:54 Potassium 5.1 mmol/L (3.6-5.0) H 06/19/20 01:54 Chloride 97.5 mmol/L (98-107) L 06/19/20 01:54 Carbon Dioxide 19 mmol/L (22-30) L 06/19/20 01:54 Anion Gap 21 mmol/L 06/19/20 01:54 BUN 19 mg/dL (9-20) 06/19/20 01:54 Creatinine 1.1 mg/dL (0.8-1.3) 06/19/20 01:54 Estimated GFR > 60 ml/min 06/19/20 01:54 BUN/Creatinine Ratio 17 % 06/19/20 01:54 Glucose 286 mg/dL (75-100) H 06/19/20 01:54 Calcium 9.9 mg/dL (8.4-10.2) 06/19/20 01:54 Total Bilirubin 0.90 mg/dL (0.1-1.2) 06/19/20 01:54 AST 33 units/L (5-40) 06/19/20 01:54 ALT 38 units/L (7-56) 06/19/20 01:54 Alkaline Phosphatase 128 units/L (35-129) 06/19/20 01:54 Troponin T < 0.010 ng/mL (0.00-0.029) 06/19/20 08:42 NT-Pro-B Natriuret Pep 2744 pg/mL (0-900) H 06/19/20 05:01 Total Protein 7.2 g/dL (6.3-8.2) 06/19/20 01:54 Albumin 4.4 g/dL (3.9-5) 06/19/20 01:54 Albumin/Globulin Ratio 1.6 % 06/19/20 01:54 Lipase 48 units/L (13-60) 06/19/20 05:01 Urine Color Yellow (Yellow) 06/19/20 07:40 Urine Turbidity Clear (Clear) 06/19/20 07:40 Urine pH 5.0 (5.0-7.0) 06/19/20 07:40 Ur Specific [place] 1.011 (1.003-1.030) 06/19/20 07:40 Urine Protein 100 mg/dl mg/dL (Negative) 06/19/20 07:40 Urine Glucose (UA) >=500 mg/dL (Negative) 06/19/20 07:40 Urine Ketones Neg mg/dL (Negative) 06/19/20 07:40 Urine Blood Neg (Negative) 06/19/20 07:40 Urine Nitrite Neg (Negative) 06/19/20 07:40 Urine Bilirubin Neg (Negative) 06/19/20 07:40 Urine Urobilinogen < 2.0 mg/dL (<2.0) 06/19/20 07:40 Ur Leukocyte Esterase Neg (Negative) 06/19/20 07:40 Urine WBC (Auto) 1.0 /HPF (0.0-6.0) 06/19/20 07:40 Urine RBC (Auto) < 1.0 /HPF (0.0-6.0) 06/19/20 07:40 Hyaline Casts 5 /LPF 06/19/20 07:40 Urine Mucus Few /HPF 06/19/20 07:40 [place]/IV: IV Catheter Type [Left Hand] INT / Saline Lock Assessment and Plan Assessment and plan: Acute on chronic HFrEF (heart failure with reduced ejection fraction) Pt was hospitalized at [facility] in 04/2018 where he was initially diagnosed with HF. LHC at that time showed normal coronaries with severe dilated CMP, EF <15%. Nonischemic dilated cardiomyopathy Accelerated hypertension Continue home antihypertensive medication Chest pain Cardiology consultation pending Diabetes Tight glycemic control, SSRI History of atrial flutter Continue medications for rate control History of cardioversion NSVT (nonsustained ventricular tachycardia) Continue to monitor on telemetry.
--- NOTE | 2020-06-19 12:59 | Consultation ---
History of Present Illness Consult date: 06/19/20 Requesting physician: GENNY BROWN Consult reason: chest pain History of present illness: The pt is a 59-year-old male with a past medical history of dilated NICMP, atrial flutter s/p DCCV x 2, anticoagulated on Eliquis, HFrEF, DM, obesity, noncompliance. He has been seen in our office in the past by Dr. Keyshawn Wade (last seen 11/2018), noncompliant with OP follow up. He presented with c/o progressively worsening SOB, orthopnea and abdominal swelling for 1 week prior to arrival. He also c/o some intermittent substernal chest pain which is aggravated by deep inspiration. He reports compliance with home medication regimen. He denies any palpitations, n/v, diaphoresis, dizziness or syncope. Of note, pt was discharged from [facility] on 11/11/2018 following treatment for HFrEF and new onset atrial flutter with RVR. We were hesitant to initiate amiodarone at that time due to elevated LFTs. He required JUSTINE guided DCCV with successful conversion to NSR on 11/10/2018 and was discharged home on Eliquis. Pt was hospitalized again at [facility] in 11/2018 following treatment for HFrEF and recurrence of AFlutter RVR. He was initially started on IV amio as his LFTs were normal on admission but amio was later discontinued due to development of hepatic impairment. He underwent DCCV and was converted to SR and discharged home on lopressor and Eliquis, no ACEI/ARB d/t low BPs. Pt was hospitalized at [place] in 04/2018 where he was initially diagnosed with HF. LHC at that time showed normal coronaries with severe dilated CMP, EF <15%. Echo done 01/17/2020 showed EF 15-20%, severe 4 chamber dilated CMP, mild LVH, mod MR, mild to mod TR, severe pulm HTN with RVSP 63mmHg, trivial-minimal pericardial effusion. Past History Past Medical History: heart failure, hypertension, hyperlipidemia, other (Atrial flutter, nonischemic dilated cardiomyopathy, NSVT) Past Surgical History: No surgical history Social history: no significant social history Family history: no significant family history Medications and Allergies Allergies Allergy/AdvReac Type Severity Reaction Status Date / Time No Known Allergies Allergy Verified 05/04/19 15:58 Home Medications Medication Instructions Recorded Confirmed Last Taken Type lisinopriL [Zestril TAB] 2.5 mg PO QDAY #30 tablet 03/01/19 01/17/20 09/20/19 Rx Apixaban [Eliquis] 5 mg PO Q12HR #60 tablet 06/02/19 01/17/20 09/20/19 Rx Lispro Insulin [HumaLOG] 1 dose SUB-Q ACHS PRN #1000 units 06/02/19 01/17/20 Unknown Rx Potassium Chloride [K-Dur] 20 meq PO QDAY #30 tablet 06/02/19 01/17/20 Unknown Rx AtorvaSTATin 40 mg PO DAILY 09/20/19 01/17/20 09/20/19 History Furosemide [Lasix TAB] 40 mg PO QDAY #30 01/18/20 Unknown Rx Insulin NPH/Regular [NovoLIN 70/30] 12 unit SUB-Q BIDDIAB #100 units 01/18/20 Unknown Rx Melatonin/Pyridoxine HCl (B6) 1 each PO QHS #30 tablet 01/18/20 Unknown Rx [Melatonin 3 mg Tablet] Spironolactone [Aldactone] 12.5 mg PO QDAY #30 tablet 01/18/20 Unknown Rx allopurinoL [Zyloprim] 100 mg PO QDAY #30 tablet 01/18/20 Unknown Rx carvediloL [Coreg] 12.5 mg PO BID #60 tablet 01/18/20 Unknown Rx guaiFENesin [Robitussin] 100 mg PO TID PRN #100 ml 01/18/20 Unknown Rx metFORMIN 1,000 mg PO BID #30 01/18/20 Unknown Rx oxyCODONE /ACETAMINOPHEN [Percocet 1 tab PO Q8H PRN #10 tablet 01/18/20 Unknown Rx 5/325 mg] Colchicine 1.2 mg PO ONCE #3 capsule 06/11/20 Unknown Rx HYDROcodone/APAP 5-325 [[place] 1 each PO Q6HR PRN #10 tablet 06/11/20 Unknown Rx 5/325] Active Meds: Active Medications Acetaminophen (Tylenol) 650 mg PO Q4H PRN PRN Reason: Pain MILD(1-3)/Fever >100.5/[place] Ondansetron HCl (Zofran) 4 mg IV Q8H PRN PRN Reason: Nausea And Vomiting Oxycodone/Acetaminophen (Percocet 5/325) 1 tab PO Q4H PRN PRN Reason: Pain, Moderate (4-6) Last Admin: 06/19/20 11:20 Dose: 1 tab Documented by: Sodium Chloride (Sodium Chloride Flush Syringe 10 Ml) 10 ml IV PRN PRN PRN Reason: LINE FLUSH Sodium Chloride (Sodium Chloride Flush Syringe 10 Ml) 10 ml IV BID JANINE Sodium Chloride (Sodium Chloride Flush Syringe 10 Ml) 10 ml IV PRN PRN PRN Reason: LINE FLUSH Review of Systems Constitutional: no fever, no chills, no sweats Ears, nose, mouth and throat: no ear pain, no nose pain, no sinus pressure, no sinus pain Cardiovascular: chest pain, orthopnea, edema, shortness of breath, dyspnea on exertion, decreased exercise tolerance, no palpitations, no rapid/irregular heart beat, no syncope, no lightheadedness Respiratory: shortness of breath, dyspnea on exertion, no cough, no congestion, no wheezing Gastrointestinal: other (abdominal swelling), no abdominal pain, no nausea, no vomiting, no diarrhea, no constipation, no change in bowel habits Genitourinary Male: no dysuria, no hematuria, no flank pain, no discharge, no urinary frequency, no urinary hesitancy Musculoskeletal: no neck stiffness, no neck pain, no shooting arm pain, no arm numbness/tingling, no low back pain, no shooting leg pain Integumentary: no rash, no pruritis, no redness, no sores, no wounds Neurological: no head injury, no paralysis, no weakness, no parathesias, no numbness, no tingling, no seizures, no syncope Psychiatric: no anxiety Endocrine: no cold intolerance, no heat intolerance Hematologic/Lymphatic: no easy bruising, no easy bleeding Allergic/Immunologic: no urticaria Physical Examination Vital Signs Temp Pulse Resp BP Pulse Ox 98.7 F 100 H 18 136/79 96 06/19/20 01:35 06/19/20 01:35 06/19/20 01:35 06/19/20 01:35 06/19/20 01:35 General appearance: no acute distress HEENT: Positive: PERRL, Normocephaly, Mucus Membranes Moist Neck: Positive: neck supple, trachea midline Cardiac: Positive: Reg Rate and Rhythm, S1/S2 Lungs: Positive: Decreased Breath Sounds Neuro: Positive: Grossly Intact Abdomen: Negative: Tender Skin: Negative: Rash Musculoskeletal: No Pain Extremities: Present: edema (trace BLE) Results 06/19/20 01:54 06/19/20 01:54 Cardiac Enzymes 06/19/20 Range/Units 01:54 AST 33 (5-40) units/L Coagulation 06/19/20 Range/Units 05:01 PT 17.5 H (12.2-14.9) Sec. INR 1.44 H (0.87-1.13) APTT 29.8 (24.2-36.6) Sec. CBC 06/19/20 Range/Units 01:54 WBC 10.0 (4.5-11.0) K/mm3 RBC 5.31 H (3.65-5.03) M/mm3 Hgb 14.2 (11.8-15.2) gm/dl Hct 44.9 (35.5-45.6) % Plt Count 273 (140-440) K/mm3 Lymph # (Auto) 2.4 (1.2-5.4) K/mm3 [place] # (Auto) 0.9 H (0.0-0.8) K/mm3 Eos # (Auto) 0.1 (0.0-0.4) K/mm3 Baso # (Auto) 0.2 H (0.0-0.1) K/mm3 Comprehensive Metabolic Panel 06/19/20 Range/Units 01:54 Sodium 132 L (137-145) mmol/L Potassium 5.1 H (3.6-5.0) mmol/L Chloride 97.5 L (98-107) mmol/L Carbon Dioxide 19 L (22-30) mmol/L BUN 19 (9-20) mg/dL Creatinine 1.1 (0.8-1.3) mg/dL Glucose 286 H (75-100) mg/dL Calcium 9.9 (8.4-10.2) mg/dL AST 33 (5-40) units/L ALT 38 (7-56) units/L Alkaline Phosphatase 128 (35-129) units/L Total Protein 7.2 (6.3-8.2) g/dL Albumin 4.4 (3.9-5) g/dL - Imaging and Cardiology Echo: report reviewed (01/17/2020 showed EF 15-20%, severe 4 chamber dilated CMP, mild LVH, mod MR, mild to mod TR, severe pulm HTN with RVSP 63mmHg, trivial- minimal pericardial effusion.) Cardiac cath: report reviewed (Pt was hospitalized at [place] in 04/2018 where he was initially diagnosed with HF. LHC at that time showed normal coronaries with severe dilated CMP, EF <15%. ) EKG: report reviewed, image reviewed EKG interpretations - Telemetry EKG Rhythm: Sinus Rhythm - EKG Sinus rhythms and dysrhythmias: sinus tachycardia Assessment and Plan AMI r/o. No plans for additional ischemic evaluation at this time. Resume home GDMT and Eliqus, initiate IV lasix BID. Plan to evaluate for AICD candidacy as OP. Will follow. The patient has been seen in conjunction with Dr. Keyshawn Wade who agrees with the assessment and plan of care. - Patient Problems (1) Acute on chronic HFrEF (heart failure with reduced ejection fraction) Current Visit: Yes Status: Acute (2) Nonischemic dilated cardiomyopathy Current Visit: Yes Status: Chronic (3) Chest pain Current Visit: Yes Status: Acute (4) Sinus tachycardia Current Visit: Yes Status: Acute (5) Hypertension Current Visit: Yes Status: Chronic (6) Normal coronary arteries Current Visit: Yes Status: Chronic (7) Diabetes Current Visit: Yes Status: Chronic (8) History of atrial flutter Current Visit: Yes Status: Chronic (9) History of cardioversion Current Visit: Yes Status: Chronic (10) Medical non-compliance Current Visit: Yes Status: Chronic
[2020-06-19 14:19] LABS: Basophils # (Auto) 0.1 K/mm3 (0.0-0.1); Eosinophils % (Auto) 1.4 % (0.0-4.3); Hematocrit 44.6 % (35.5-45.6); Hemoglobin 14.4 gm/dl (11.8-15.2); Lymphocytes # (Auto) 2.8 K/mm3 (1.2-5.4); Lymphocytes % (Auto) 30.9 % (13.4-35.0); Mean Corpuscular HGB Conc 32 % (32-34); Mean Corpuscular Volume 86 fl (84-94); Monocytes # (Auto) 0.7 K/mm3 (0.0-0.8); Monocytes % (Auto) 7.6 % (0.0-7.3); Platelet Count 306 K/mm3 (140-440)
[2020-06-19 14:23] LABS: Red Blood Count 5.21 M/mm3 (3.65-5.03); Red Cell Distribution Width 14.9 % (13.2-15.2)
[2020-06-19 14:24] LABS: Basophils % (Auto) 0.6 % (0.0-1.8); Eosinophils # (Auto) 0.1 K/mm3 (0.0-0.4)
[2020-06-19 14:26] LABS: BUN/Creatinine Ratio 16; Blood Urea Nitrogen 16 mg/dL (9-20); Calcium 10.1 mg/dL (8.4-10.2); Hemolysis Index 6
[2020-06-19] MEDS ORDERED: ONDANSETRON 4 MG/2 ML INJ ONE (16:08)
[2020-06-19] MEDS: ONDANSETRON 4 MG/2 ML INJ IV PRN (16:13)
[2020-06-19] MEDS ORDERED: FUROSEMIDE 40 MG/4 ML INJ ONE (18:27)
[2020-06-19] MEDS: FUROSEMIDE 40 MG/4 ML INJ IV SCH (18:30)
[2020-06-19] MEDS: carvediloL 12.5 MG TAB PO SCH (22:13)
[2020-06-19] MEDS: APIXABAN 5 MG TAB PO SCH (22:14)
[2020-06-20] MEDS: FUROSEMIDE 40 MG/4 ML INJ IV SCH (05:07)
[2020-06-20] MEDS: oxyCODONE /ACETAMINOPHEN 5-325MG TAB PO PRN ×2 (05:07→09:54)
--- NOTE | 2020-06-20 08:43 | Discharge Summary ---
Providers - Providers Date of Admission: 06/19/20 08:31 Date of discharge: 06/20/20 Attending physician: GENNY BROWN 06/19/20 Consult to Cardiac Rehabilitation [CONS] Routine Reason For Exam: Phase I 06/19/20 12:22 Consult to Cardiology [CONS] Routine Consulting Provider: FRED RICHMOND Reason For Exam: CP Primary care physician: DUDE WRANGLER Hospitalization Reason for admission: CP Condition: Stable Hospital course: Patient is 59 years old male with history of congestive heart failure with EF of 15-20%, hypertension, diabetes and atrial fibrillation currently on Eliquis who presented to the ER complaining of shortness of breath abdominal distention and bilateral lower extremity swelling for the last few days. 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 Patient is also complaining of substernal chest pain. Patient describes his pain as tightness with no radiation. Patient denied any fever or chills. Patient describes significant orthopnea and generalized weakness. Patient is also complaining of nausea and diarrhea. The patient's pain is reproducible with palpation. 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 He denies any palpitations, n/v, diaphoresis, dizziness or syncope. Of note, pt was discharged from [facility] on 11/11/2018 following treatment for HFrEF and new onset atrial flutter with RVR. Cardiology was hesitant to initiate amiodarone at that time due to elevated LFTs. He required JUSTINE guided DCCV with successful conversion to NSR on 11/10/2018 and was discharged home on Eliquis. Pt was hospitalized again at [facility] in 11/2018 following treatment for HFrEF and recurrence of AFlutter RVR. He was initially started on IV amio as his LFTs were normal on admission but amio was later discontinued due to development of hepatic impairment. He underwent DCCV and was converted to SR and discharged home on lopressor and Eliquis, no ACEI/ARB d/t low BPs. Pt was hospitalized at [place] in 04/2018 where he was initially diagnosed with HF. LHC at that time showed normal coronaries with severe dilated CMP, EF <15%. Echo done 01/17/2020 showed EF 15-20%, severe 4 chamber dilated CMP, mild LVH, mod MR, mild to mod TR, severe pulm HTN with RVSP 63mmHg, trivial-minimal pericardial effusion. On this admission, patient was admitted with diagnosis of mild acute on chronic heart failure with reduced ejection fraction and chest pain. Patient was noted to have no EKG changes and troponin within normal limits. Patient had mild elevation in BNP of 2744. Patient received 60 mg IV of Lasix x1 and then started on 40 mg IV twice daily with significant improvement. Heart failure resolved and cardiology felt no need for ischemic evaluation for chest pain. Therefore, patient is felt to receive maximal hospital benefit and will be discharged home. Dedicated discharge time 35 minutes. Disposition: [id number] TO HOME OR SELFCARE Time spent for discharge: 35 - Discharge Diagnoses (1) Costochondritis Status: Acute (2) Acute HFrEF (heart failure with reduced ejection fraction) Status: Acute (3) Accelerated hypertension Status: Acute (4) Acute chest pain Status: Acute (5) Atrial flutter with rapid ventricular response Status: Acute (6) Cardiomyopathy Status: Acute Qualifiers: Cardiomyopathy type: unspecified Qualified Code(s): I42.9 - Cardiomyopathy, unspecified (7) Diabetes Status: Chronic (8) Dilated cardiomyopathy Status: Chronic (9) HTN (hypertension) Status: Chronic (10) History of atrial flutter Status: Chronic (11) History of cardioversion Status: Chronic (12) Nonischemic dilated cardiomyopathy Status: Chronic Core Measure Documentation - Palliative Care Palliative Care/ Comfort Measures: Not Applicable - Core Measures Any of the following diagnoses?: heart failure - Heart Failure Discharge Requirements DAMIEN/ARB for LVSD if EF <40%: Yes Beta sampson at discharge: Yes Exam - Constitutional Vitals: Temp Pulse Resp BP Pulse Ox 97.8 F 98 H 20 99/67 98 06/20/20 03:25 06/20/20 04:49 06/20/20 04:09 06/20/20 03:25 06/20/20 04:09 General appearance: Present: no acute distress, well-nourished - EENT Eyes: Present: PERRL ENT: hearing intact, clear oral mucosa - Neck Neck: Present: supple, normal ROM - Respiratory Respiratory effort: normal Respiratory: bilateral: CTA - Cardiovascular Heart Sounds: Present: S1 & S2. Absent: rub, click - Extremities Extremities: pulses symmetrical, No edema Peripheral Pulses: within normal limits - Abdominal General gastrointestinal: Present: soft, non-tender, non-distended, normal bowel sounds Male genitourinary: Present: normal - Integumentary Integumentary: Present: clear, warm, dry - Musculoskeletal Musculoskeletal: gait normal, strength equal bilaterally - Psychiatric Psychiatric: appropriate mood/affect, intact judgment & insight - Neurologic Neurologic: CNII-XII intact, moves all extremities Plan Activity: advance as tolerated Weight Bearing Status: Weight Bear as Tolerated Diet: low fat, low cholesterol, low salt, diabetic Special Instructions: restrict fluid intake to (1 liter) Follow up with: PRIMARY CARE, [Primary Care Provider] - 3-5 Days Prescriptions: Spironolactone [Aldactone] 12.5 mg PO QDAY #30 tablet AtorvaSTATin 40 mg PO DAILY #30 Colchicine 1.2 mg PO ONCE #3 capsule carvediloL [Coreg] 12.5 mg PO BID #60 tablet Apixaban [Eliquis] 5 mg PO Q12HR #60 tablet Furosemide [Lasix TAB] 40 mg PO QDAY #30 Melatonin/Pyridoxine HCl (B6) [Melatonin 3 mg Tablet] 1 each PO QHS #30 tablet metFORMIN 1,000 mg PO BID #30 oxyCODONE /ACETAMINOPHEN [Percocet 5/325 mg] 1 tab PO Q4H PRN #8 tablet PRN Reason: Pain, Moderate (4-6) lisinopriL [Zestril TAB] 2.5 mg PO QDAY #30 tablet allopurinoL [Zyloprim] 100 mg PO QDAY #30 tablet
[2020-06-20 08:59] VITALS: BP 91/61
[2020-06-20] MEDS: ONDANSETRON 4 MG/2 ML INJ IV PRN (09:47)
[2020-06-20] MEDS: APIXABAN 5 MG TAB PO SCH (09:47)
[2020-06-20] MEDS: carvediloL 12.5 MG TAB PO SCH (09:48)
[2020-06-20] MEDS ORDERED: LISINOPRIL 5 MG TAB PO SCH (10:00)
[2020-06-20] MEDS ORDERED: SPIRONOLACTONE 25 MG TAB PO SCH (10:00)
--- NOTE | 2020-06-20 11:09 | Progress Note ---
Assessment and Plan AMI r/o. No plans for additional ischemic evaluation at this time. Currently stable cardiac status. Pt feeling better, appears to be nearing euvolemia today. Pt may discharge from cardiology standpoint. At discharge, recommend PO lasix 40mg daily. Plan to evaluate for AICD candidacy as OP. Recommend pt follow up in our office with Dr. Keyshawn Wade within 1-2 weeks of discharge ([phone]). Pt states he will call and make his own appt. The patient has been seen in conjunction with Dr. Keyshawn Wade who agrees with the assessment and plan of care. - Patient Problems (1) Acute on chronic HFrEF (heart failure with reduced ejection fraction) Current Visit: Yes Status: Acute (2) Nonischemic dilated cardiomyopathy Current Visit: Yes Status: Chronic (3) Chest pain Current Visit: Yes Status: Acute (4) Sinus tachycardia Current Visit: Yes Status: Acute (5) Hypertension Current Visit: Yes Status: Chronic (6) Normal coronary arteries Current Visit: Yes Status: Chronic (7) Diabetes Current Visit: Yes Status: Chronic (8) History of atrial flutter Current Visit: Yes Status: Chronic (9) History of cardioversion Current Visit: Yes Status: Chronic (10) Medical non-compliance Current Visit: Yes Status: Chronic Subjective Date of service: 06/20/20 Principal diagnosis: HF Interval history: pt sitting up at bedside, states he is feeling better. tele reviewed - in SR HR 80s. Objective Last Vital Signs Temp 97.7 F 06/20/20 07:35 Pulse 80 06/20/20 07:35 Resp 20 06/20/20 07:35 BP 91/61 06/20/20 07:35 Pulse Ox 98 06/20/20 07:35 - Physical Examination General: No Apparent Distress HEENT: Positive: PERRL, Normocephaly, Mucus Membranes Moist Neck: Positive: neck supple, trachea midline Cardiac: Positive: Reg Rate and Rhythm, S1/S2 Lungs: Positive: Decreased Breath Sounds Neuro: Positive: Grossly Intact Abdomen: Negative: Tender Skin: Negative: Rash Musculoskeletal: No Pain Extremities: Present: edema (trace BLE) - Labs and Meds CBC 06/19/20 Range/Units 13:33 WBC 8.9 (4.5-11.0) K/mm3 RBC 5.21 H (3.65-5.03) M/mm3 Hgb 14.4 (11.8-15.2) gm/dl Hct 44.6 (35.5-45.6) % Plt Count 306 (140-440) K/mm3 Lymph # (Auto) 2.8 (1.2-5.4) K/mm3 [place] # (Auto) 0.7 (0.0-0.8) K/mm3 Eos # (Auto) 0.1 (0.0-0.4) K/mm3 Baso # (Auto) 0.1 (0.0-0.1) K/mm3 Comprehensive Metabolic Panel 06/19/20 Range/Units 13:33 Sodium 135 L (137-145) mmol/L Potassium 4.6 (3.6-5.0) mmol/L Chloride 97.3 L (98-107) mmol/L Carbon Dioxide 25 (22-30) mmol/L BUN 16 (9-20) mg/dL Creatinine 1.0 (0.8-1.3) mg/dL Glucose 219 H (75-100) mg/dL Calcium 10.1 (8.4-10.2) mg/dL - Imaging and Cardiology EKG: report reviewed, image reviewed Echo: report reviewed (01/17/2020 showed EF 15-20%, severe 4 chamber dilated CMP, mild LVH, mod MR, mild to mod TR, severe pulm HTN with RVSP 63mmHg, trivial- minimal pericardial effusion.) Cardiac cath: report reviewed (Pt was hospitalized at [place] in 04/2018 where he was initially diagnosed with HF. LHC at that time showed normal coronaries with severe dilated CMP, EF <15%. ) - Telemetry EKG Rhythm: Sinus Rhythm - EKG Sinus rhythms and dysrhythmias: sinus tachycardia
== END 2020-06-20 11:00 | disposition home or self-care (01) ==
LOC: ED 01:23 → 4A 08:31
PROVIDERS: ADMIT Hospitalist; ATTEND Hospitalist
DX: I11.0 Hypertensive heart disease with heart failure (principal); I50.23 Acute on chronic systolic (congestive) heart failure; I42.8 Other cardiomyopathies; I48.92 Unspecified atrial flutter; E11.9 Type 2 diabetes mellitus without complications; I47.1 Supraventricular tachycardia; E78.5 Hyperlipidemia, unspecified; G43.909 Migraine, unspecified, not intractable, without status migrainosus; F17.210 Nicotine dependence, cigarettes, uncomplicated; Z79.4 Long term (current) use of insulin; Z91.14 Patient's other noncompliance with medication regimen
CPT/HCPCS: 36415; 71045; 80053; 81001; 82962; 83690; 83880; 84484; 85025; 85610; 85730; 93005; 96374; 96375; 96376; 99291; A9270; G0378; J1940; J2405; 80048

== ENCOUNTER 2020-07-06 03:38 | Emergency (ER) | payer MEDICAID ==
[2020-07-06] MEDS ORDERED: ASPIRIN 325 MG TAB PO ONE (03:53)
--- NOTE | 2020-07-06 04:50 | XRay Report ---
CHEST 1 VIEW INDICATION / CLINICAL INFORMATION: Chest Pain. COMPARISON: Chest radiograph 06/19/2020 FINDINGS: SUPPORT DEVICES: None. HEART / MEDIASTINUM: Stable cardiomegaly. LUNGS / PLEURA: No significant pulmonary or pleural abnormality. No pneumothorax. ADDITIONAL FINDINGS: No significant additional findings. IMPRESSION: 1. Stable cardiomegaly. No acute abnormality identified. Signer Name: Stephanie Lara MD Signed: 07/06/2020 4:45 AM Workstation Name: [id number]
[2020-07-06 05:01] LABS: Basophils # (Auto) 0.1 K/mm3 (0.0-0.1); Basophils % (Auto) 1.2 % (0.0-1.8); Eosinophils # (Auto) 0.1 K/mm3 (0.0-0.4); Eosinophils % (Auto) 0.6 % (0.0-4.3); Hematocrit 41.9 % (35.5-45.6); Hemoglobin 13.7 gm/dl (11.8-15.2); Lymphocytes # (Auto) 1.9 K/mm3 (1.2-5.4); Lymphocytes % (Auto) 19.5 % (13.4-35.0); Mean Corpuscular HGB Conc 33 % (32-34); Mean Corpuscular Volume 83 fl (84-94); Monocytes # (Auto) 0.8 K/mm3 (0.0-0.8); Monocytes % (Auto) 8.1 % (0.0-7.3); Platelet Count 275 K/mm3 (140-440); Red Blood Count 5.06 M/mm3 (3.65-5.03); Red Cell Distribution Width 15.3 % (13.2-15.2)
[2020-07-06 05:19] LABS: BUN/Creatinine Ratio 17; Blood Urea Nitrogen 20 mg/dL (9-20); Calcium 9.6 mg/dL (8.4-10.2); Hemolysis Index 8
--- NOTE | 2020-07-06 07:09 | Emergency Department Report ---
ED Chest Pain HPI - General Chief Complaint: Chest Pain Stated Complaint: CHEST PAIN Time Seen by Provider: 07/06/20 06:53 Source: patient Mode of arrival: Stretcher Limitations: No Limitations - History of Present Illness Initial Comments: Patient is a 59-year-old male who presents for the third time in 3 weeks for evaluation of diffuse chest pressure which occurs at night while lying down. Patient states he has abdominal pressure constantly which he suspects is related. Patient states symptoms have not changed resolved since previous evaluation, has been kept overnight for same with cardiology evaluation. Patient has upcoming cardiac evaluation tomorrow as outpatient. Patient denies dyspnea, denies fever, denies cough. Patient denies calf pain or swelling. Severity scale (0 -10): 9 - Related Data Previous Rx's Medication Instructions Recorded Last Taken Type Apixaban [Eliquis] 5 mg PO Q12HR #60 tablet 06/20/20 Unknown Rx AtorvaSTATin 40 mg PO DAILY #30 06/20/20 Unknown Rx Colchicine 1.2 mg PO ONCE #3 capsule 06/20/20 Unknown Rx Furosemide [Lasix TAB] 40 mg PO QDAY #30 06/20/20 Unknown Rx Melatonin/Pyridoxine HCl (B6) 1 each PO QHS #30 tablet 06/20/20 Unknown Rx [Melatonin 3 mg Tablet] Spironolactone [Aldactone] 12.5 mg PO QDAY #30 tablet 06/20/20 Unknown Rx allopurinoL [Zyloprim] 100 mg PO QDAY #30 tablet 06/20/20 Unknown Rx carvediloL [Coreg] 12.5 mg PO BID #60 tablet 06/20/20 Unknown Rx lisinopriL [Zestril TAB] 2.5 mg PO QDAY #30 tablet 06/20/20 Unknown Rx metFORMIN 1,000 mg PO BID #30 06/20/20 Unknown Rx oxyCODONE /ACETAMINOPHEN [Percocet 1 tab PO Q4H PRN #8 tablet 06/20/20 Unknown Rx 5/325 mg] Allergies Allergy/AdvReac Type Severity Reaction Status Date / Time No Known Allergies Allergy Verified 05/04/19 15:58 Heart Score - HEART Score History: Slightly suspicious EKG: Normal Age: 45-65 Risk factors: > 3 risk factors or hx of atherosclerotic disease Troponin: < normal limit HEART Score: 3 - Critical Actions Critical Actions: 0-3 pts:0.9-1.7%risk of adverse cardiac event.Candidate for discharge ED Review of Systems ROS: Stated complaint: CHEST PAIN Other details as noted in HPI Comment: All other systems reviewed and negative ED Past Medical Hx - Past Medical History Previous Medical History?: Yes Hx Hypertension: Yes Hx Heart Attack/AMI: No Hx Congestive Heart Failure: Yes Hx Diabetes: Yes Hx Deep Vein Thrombosis: No Hx Liver Disease: No Hx Arthritis: Yes (gout) Hx Headaches / Migraines: Yes Hx Seizures: No Hx Asthma: No Hx COPD: No Hx Dementia: No Hx HIV: No Additional medical history: AFib gout back and left leg pain. OBESITY - Surgical History Past Surgical History?: No Hx Coronary Stent: No Hx Pacemaker: No Hx Internal Defibrillator: No - Social History Smoking Status: Never Smoker Substance Use Type: Marijuana - Medications Home Medications: Home Medications Medication Instructions Recorded Confirmed Last Taken Type Apixaban [Eliquis] 5 mg PO Q12HR #60 tablet 06/20/20 Unknown Rx AtorvaSTATin 40 mg PO DAILY #30 06/20/20 Unknown Rx Colchicine 1.2 mg PO ONCE #3 capsule 06/20/20 Unknown Rx Furosemide [Lasix TAB] 40 mg PO QDAY #30 06/20/20 07/06/20 Unknown Rx Melatonin/Pyridoxine HCl (B6) 1 each PO QHS #30 tablet 06/20/20 07/06/20 Unknown Rx [Melatonin 3 mg Tablet] Spironolactone [Aldactone] 12.5 mg PO QDAY #30 tablet 06/20/20 07/06/20 Unknown Rx allopurinoL [Zyloprim] 100 mg PO QDAY #30 tablet 06/20/20 07/06/20 Unknown Rx carvediloL [Coreg] 12.5 mg PO BID #60 tablet 06/20/20 07/06/20 Unknown Rx lisinopriL [Zestril TAB] 2.5 mg PO QDAY #30 tablet 06/20/20 07/06/20 Unknown Rx metFORMIN 1,000 mg PO BID #30 06/20/20 07/06/20 Unknown Rx oxyCODONE /ACETAMINOPHEN [Percocet 1 tab PO Q4H PRN #8 tablet 06/20/20 Unknown Rx 5/325 mg] ED Physical Exam - General Limitations: No Limitations General appearance: alert, in no apparent distress - Head Head exam: Present: atraumatic, normocephalic - Eye Eye exam: Present: normal appearance - ENT ENT exam: Present: mucous membranes moist - Neck Neck exam: Present: normal inspection - Respiratory Respiratory exam: Present: normal lung sounds bilaterally. Absent: respiratory distress - Cardiovascular Cardiovascular Exam: Present: regular rate, normal rhythm. Absent: systolic murmur, diastolic murmur, rubs, gallop - GI/Abdominal GI/Abdominal exam: Present: soft, normal bowel sounds - Rectal Rectal exam: Present: deferred - Extremities Exam Extremities exam: Present: normal inspection - Back Exam Back exam: Present: normal inspection - Neurological Exam Neurological exam: Present: alert, oriented X3 - Psychiatric Psychiatric exam: Present: normal affect, normal mood - Skin Skin exam: Present: warm, dry, intact, normal color. Absent: rash ED Course Vital Signs 07/06/20 07/06/20 07/06/20 04:02 06:48 07:00 Temperature 98.3 F Pulse Rate 104 H 97 H Respiratory 20 29 H Rate Blood Pressure 128/84 107/73 Blood Pressure [Left] O2 Sat by Pulse 96 100 Oximetry 07/06/20 07/06/20 07/06/20 07:15 07:31 07:45 Temperature Pulse Rate 104 H 93 H Respiratory 19 27 H 20 Rate Blood Pressure 107/73 107/73 107/73 Blood Pressure [Left] O2 Sat by Pulse 99 99 99 Oximetry 07/06/20 07/06/20 07/06/20 08:17 08:31 08:45 Temperature Pulse Rate 98 H 93 H 96 H Respiratory 13 23 19 Rate Blood Pressure 107/73 107/73 107/73 Blood Pressure [Left] O2 Sat by Pulse Oximetry 07/06/20 07/06/20 07/06/20 09:01 09:15 09:31 Temperature Pulse Rate 93 H 93 H 91 H Respiratory 17 19 20 Rate Blood Pressure 148/95 148/95 148/95 Blood Pressure [Left] O2 Sat by Pulse 99 94 95 Oximetry 07/06/20 07/06/20 07/06/20 09:45 10:01 10:15 Temperature Pulse Rate 96 H 94 H Respiratory 28 H 19 Rate Blood Pressure 148/95 148/95 148/95 Blood Pressure [Left] O2 Sat by Pulse 95 97 94 Oximetry 12/11/20 12/11/20 12/11/20 10:31 10:45 11:01 Temperature Pulse Rate Respiratory Rate Blood Pressure 148/95 148/95 148/95 Blood Pressure [Left] O2 Sat by Pulse 98 98 98 Oximetry 07/06/20 07/06/20 07/06/20 11:21 11:31 11:42 Temperature Pulse Rate 96 H 88 Respiratory 17 Rate Blood Pressure 148/95 148/95 Blood Pressure 132/77 [Left] O2 Sat by Pulse 88 Oximetry - Reevaluation(s) Reevaluation #1: 07/06/20 11:47 Patient initially treated with Toradol IV with minimal improvement of symptoms. Patient treated with Reglan IV with resolution of discomfort. Patient clarifies he has follow-up appoint with cardiology today at 230, patient is consequently discharged as he now is asymptomatic with negative troponins x2, normal abdominal exam. HAZEL score - Hazel Score Age > 65: (0) No Aspirin use within the Past 7 Days: (0) No 3 or more CAD Risk Factors: (1) Yes 2 or more Angina events in past 24 hrs: (1) Yes Known CAD with more than 50% Stenosis: (0) No Elevated Cardiac Markers: (0) No ST Deviation Greater than 0.5mm: (0) No HAZEL Score: 2 ED Medical Decision Making - Lab Data Result diagrams: 07/06/20 04:21 07/06/20 04:21 Vital Signs 07/06/20 07/06/20 07/06/20 04:02 06:48 07:00 Temperature 98.3 F Pulse Rate 104 H 97 H Respiratory 20 29 H Rate Blood Pressure 128/84 107/73 Blood Pressure [Left] O2 Sat by Pulse 96 100 Oximetry 07/06/20 07/06/20 07/06/20 07:15 07:31 07:45 Temperature Pulse Rate 104 H 93 H Respiratory 19 27 H 20 Rate Blood Pressure 107/73 107/73 107/73 Blood Pressure [Left] O2 Sat by Pulse 99 99 99 Oximetry 07/06/20 07/06/20 07/06/20 08:17 08:31 08:45 Temperature Pulse Rate 98 H 93 H 96 H Respiratory 13 23 19 Rate Blood Pressure 107/73 107/73 107/73 Blood Pressure [Left] O2 Sat by Pulse Oximetry 07/06/20 07/06/20 07/06/20 09:01 09:15 09:31 Temperature Pulse Rate 93 H 93 H 91 H Respiratory 17 19 20 Rate Blood Pressure 148/95 148/95 148/95 Blood Pressure [Left] O2 Sat by Pulse 99 94 95 Oximetry 07/06/20 07/06/20 07/06/20 09:45 10:01 10:15 Temperature Pulse Rate 96 H 94 H Respiratory 28 H 19 Rate Blood Pressure 148/95 148/95 148/95 Blood Pressure [Left] O2 Sat by Pulse 95 97 94 Oximetry 07/06/20 07/06/20 07/06/20 10:31 10:45 11:01 Temperature Pulse Rate Respiratory Rate Blood Pressure 148/95 148/95 148/95 Blood Pressure [Left] O2 Sat by Pulse 98 98 98 Oximetry 07/06/20 07/06/20 07/06/20 11:21 11:31 11:42 Temperature Pulse Rate 96 H 88 Respiratory 17 Rate Blood Pressure 148/95 148/95 Blood Pressure 132/77 [Left] O2 Sat by Pulse 88 Oximetry Lab Results 07/06/20 07/06/20 07/06/20 Range/Units 04:21 04:21 06:55 WBC 9.7 (4.5-11.0) K/mm3 RBC 5.06 H (3.65-5.03) M/mm3 Hgb 13.7 (11.8-15.2) gm/dl Hct 41.9 (35.5-45.6) % MCV 83 L (84-94) fl MCH 27 L (28-32) pg MCHC 33 (32-34) % RDW 15.3 H (13.2-15.2) % Plt Count 275 (140-440) K/mm3 Lymph % (Auto) 19.5 (13.4-35.0) % [place] % (Auto) 8.1 H (0.0-7.3) % Eos % (Auto) 0.6 (0.0-4.3) % Baso % (Auto) 1.2 (0.0-1.8) % Lymph # (Auto) 1.9 (1.2-5.4) K/mm3 [place] # (Auto) 0.8 (0.0-0.8) K/mm3 Eos # (Auto) 0.1 (0.0-0.4) K/mm3 Baso # (Auto) 0.1 (0.0-0.1) K/mm3 Seg Neutrophils % 70.6 H (40.0-70.0) % Seg Neutrophils # 6.9 (1.8-7.7) K/mm3 Sodium 135 L (137-145) mmol/L Potassium 5.0 (3.6-5.0) mmol/L Chloride 102.7 (98-107) mmol/L Carbon Dioxide 17 L (22-30) mmol/L Anion Gap 20 mmol/L BUN 20 (9-20) mg/dL Creatinine 1.2 (0.8-1.3) mg/dL Estimated GFR > 60 ml/min BUN/Creatinine Ratio 17 % Glucose 165 H (75-100) mg/dL Calcium 9.6 (8.4-10.2) mg/dL Total Bilirubin (0.1-1.2) mg/dL Direct Bilirubin (0-0.2) mg/dL Indirect Bilirubin mg/dL AST (5-40) units/L ALT (7-56) units/L Alkaline Phosphatase (35-129) units/L Troponin T < 0.010 < 0.010 (0.00-0.029) ng/mL Total Protein (6.3-8.2) g/dL Albumin (3.9-5) g/dL Albumin/Globulin Ratio % Lipase (13-60) units/L 07/06/20 07/06/20 Range/Units 10:18 10:18 WBC (4.5-11.0) K/mm3 RBC (3.65-5.03) M/mm3 Hgb (11.8-15.2) gm/dl Hct (35.5-45.6) % MCV (84-94) fl MCH (28-32) pg MCHC (32-34) % RDW (13.2-15.2) % Plt Count (140-440) K/mm3 Lymph % (Auto) (13.4-35.0) % [place] % (Auto) (0.0-7.3) % Eos % (Auto) (0.0-4.3) % Baso % (Auto) (0.0-1.8) % Lymph # (Auto) (1.2-5.4) K/mm3 [place] # (Auto) (0.0-0.8) K/mm3 Eos # (Auto) (0.0-0.4) K/mm3 Baso # (Auto) (0.0-0.1) K/mm3 Seg Neutrophils % (40.0-70.0) % Seg Neutrophils # (1.8-7.7) K/mm3 Sodium (137-145) mmol/L Potassium (3.6-5.0) mmol/L Chloride (98-107) mmol/L Carbon Dioxide (22-30) mmol/L Anion Gap mmol/L BUN (9-20) mg/dL Creatinine (0.8-1.3) mg/dL Estimated GFR ml/min BUN/Creatinine Ratio % Glucose (75-100) mg/dL Calcium (8.4-10.2) mg/dL Total Bilirubin 1.50 H (0.1-1.2) mg/dL Direct Bilirubin 0.7 H (0-0.2) mg/dL Indirect Bilirubin 0.8 mg/dL AST 38 (5-40) units/L ALT 33 (7-56) units/L Alkaline Phosphatase 122 (35-129) units/L Troponin T < 0.010 (0.00-0.029) ng/mL Total Protein 7.4 (6.3-8.2) g/dL Albumin 3.9 (3.9-5) g/dL Albumin/Globulin Ratio 1.1 % Lipase 46 (13-60) units/L - EKG Data -: EKG Interpreted by Me (Sinus tachycardia 103, no ST-T changes, normal QRS is interpreted by me) Critical care attestation.: If time is entered above; I have spent that time in minutes in the direct care of this critically ill patient, excluding procedure time. ED Disposition Clinical Impression: Chest pain Disposition: DC-01 TO HOME OR SELFCARE Is pt being admited?: No Condition: Stable Instructions: Nonspecific Chest Pain, Adult, Chest Pain (ED) Additional Instructions: Follow-up with cardiology at 2:30 PM today as scheduled. Return to the emergency department for recurrence of symptoms or worsening symptoms. Referrals: PRIMARY CARE, [Primary Care Provider] - 3-5 Days
[2020-07-06] MEDS ORDERED: KETOROLAC 30 MG/1 ML INJ IV ONE (07:16)
[2020-07-06] MEDS ORDERED: METOCLOPRAMIDE 10 MG/2 ML INJ IV ONE (10:32)
[2020-07-06 11:23] LABS: Albumin 3.9 g/dL (3.9-5); Bilirubin,Direct 0.7 mg/dL (0-0.2)
[2020-07-06 11:43] VITALS: BP 132/77
== END 2020-07-06 12:05 | disposition home or self-care (01) ==
LOC: ED 03:38
DX: R07.89 Other chest pain (principal); I11.0 Hypertensive heart disease with heart failure; I50.9 Heart failure, unspecified; M19.90 Unspecified osteoarthritis, unspecified site; E11.9 Type 2 diabetes mellitus without complications; G43.909 Migraine, unspecified, not intractable, without status migrainosus; F12.10 Cannabis abuse, uncomplicated; Z79.899 Other long term (current) drug therapy
CPT/HCPCS: 36415; 71045; 80048; 80076; 83690; 84484; 85025; 93005; 96374; 96375; 99284; J1885; J2765

== ENCOUNTER 2020-07-31 15:04 | Emergency (ER) | payer MEDICAID ==
--- NOTE | 2020-07-31 15:31 | Event Note ---
ED Screening Note Date of service: 07/31/20 Time: 15:30 ED Screening Note: Patient complains of abdominal pain and shortness of breath Was seen at [facility] last night for the same States abdominal pain ongoing for 1 year History of CHF-mild lower leg edema noted on exam This initial assessment/diagnostic orders/clinical plan/treatment(s) is/are subject to change based on patients health status, clinical progression and re- assessment by fellow clinical providers in the ED. Further treatment and workup at subsequent clinical providers discretion. Patient/guardian urged not to elope from the ED as their condition may be serious if not clinically assessed and managed. Initial orders include:
--- NOTE | 2020-07-31 15:58 | XRay Report ---
CHEST 2 VIEWS INDICATION: shortness of breath. COMPARISON: 07/06/2020 FINDINGS: Support devices: None. Heart: Stable mild cardiomegaly Lungs/pleura: No acute air space or interstitial disease. No pneumothorax. Additional findings: None. IMPRESSION: Cardiomegaly. Lungs clear. Signer Name: Regan Pleitez Jr, MD Signed: 07/31/2020 3:54 PM Workstation Name: [id number]
[2020-07-31 16:13] LABS: Basophils # (Auto) 0.1 K/mm3 (0.0-0.1); Basophils % (Auto) 0.8 % (0.0-1.8); Eosinophils % (Auto) 0.5 % (0.0-4.3); Hematocrit 44.1 % (35.5-45.6); Hemoglobin 13.8 gm/dl (11.8-15.2); Lymphocytes % (Auto) 22.1 % (13.4-35.0); Mean Corpuscular HGB Conc 31 % (32-34); Mean Corpuscular Volume 81 fl (84-94); Monocytes # (Auto) 0.9 K/mm3 (0.0-0.8); Monocytes % (Auto) 9.5 % (0.0-7.3); Platelet Count 244 K/mm3 (140-440); Red Blood Count 5.46 M/mm3 (3.65-5.03)
[2020-07-31 16:30] LABS: Alanine Aminotransferase 19 units/L (7-56); Albumin 4.1 g/dL (3.9-5); BUN/Creatinine Ratio 18; Blood Urea Nitrogen 21 mg/dL (9-20); Calcium 9.6 mg/dL (8.4-10.2); Hemolysis Index 4
[2020-07-31 16:32] LABS: Bilirubin,Urine NEG (Negative); Blood,Urine NEG (Negative); Color,Urine Yellow (Yellow); Hyaline Casts,Urine 5 /LPF; Mucus,Urine FEW /HPF; Protein,Urine <15 mg/dL mg/dL (Negative); Urobilinogen,Urine < 2.0 mg/dL (<2.0)
[2020-07-31] MEDS ORDERED: ACETAMINOPHEN 325 MG TAB PO ONE (19:18)
[2020-07-31] MEDS ORDERED: MORPHINE 4 MG/1 ML INJ IV ONE (23:56)
[2020-07-31] MEDS ORDERED: FAMOTIDINE 20 MG/2 ML INJ IV ONE (23:56)
[2020-07-31] MEDS ORDERED: ONDANSETRON 4 MG/2 ML INJ IV ONE (23:57)
[2020-07-31] MEDS ORDERED: FUROSEMIDE 40 MG TAB PO STA (23:57)
[2020-07-31] MEDS ORDERED: carvediloL 12.5 MG TAB PO STA (23:57)
[2020-07-31] MEDS ORDERED: SPIRONOLACTONE 25 MG TAB PO STA (23:57)
--- NOTE | 2020-07-31 23:58 | Emergency Department Report ---
<SHREYAS LOMAS - Last Filed: 08/01/20 01:30> ED General Adult HPI - General Chief complaint: Abdominal Pain Stated complaint: SOB/ABD PAIN/FATIGUE/VOMITING/OUT OF MEDS PUI?: No Time Seen by Provider: 07/31/20 15:29 Source: patient, RN notes reviewed, old records reviewed Mode of arrival: Ambulatory Limitations: No Limitations - History of Present Illness Initial comments: The patient was evaluated in the emergency department for symptoms described in the history of present illness. He/she was evaluated in the context of the global COVID-19 pandemic, which necessitated consideration that the patient might be at risk for infection with the virus that causes COVID-19. Institutional protocols and algorithms that pertain to the evaluation of patients at risk for COVID-19 are in a state of rapid change based on information released by regulatory bodies including the CDC and federal and state organizations. These policies and algorithms were followed during the patient's care in the emergency department. Please note that these policies, procedures and recommendations changed on a rapid basis. Patient is a 59-year-old gentleman. He typically follows with [place], and occasionally, [facility] cardiology. He has a history of paroxysmal A. fib/flutter, currently on Eliquis, dilated nonischemic cardiomyopathy, ejection fraction 10 to 15%, gout, hypertension, diabetes, and obesity. He presents to the ER with a complaint of nontraumatic epigastric and bilateral upper quadrant abdominal pain, feeling like he is nauseous, and indicating that he is making himself throw up. He denies headache, neck pain, chest pain, new or different shortness of breath. He denies testicular pain, and urinary symptoms. He is not quite sure if he has a history of abdominal surgeries. He specifically denies hematemesis, bright red blood per rectum, and black stool. Abdominal cramping is intermittent, increases with palpation and decreases with rest. No fever, no loss of taste, no loss of smell. He states he is compliant with his diuretics and Eliquis. -: Gradual, hour(s) Location: abdomen Radiation: non-radiation Severity scale (0 -10): 9 Quality: aching Consistency: intermittent Improves with: other Worsens with: other - Related Data Previous Rx's Medication Instructions Recorded Last Taken Type Apixaban [Eliquis] 5 mg PO Q12HR #60 tablet 11/25/20 Unknown Rx AtorvaSTATin 40 mg PO DAILY #30 06/20/20 Unknown Rx Colchicine 1.2 mg PO ONCE #3 capsule 06/20/20 Unknown Rx Furosemide [Lasix TAB] 40 mg PO QDAY #30 06/20/20 Unknown Rx Melatonin/Pyridoxine HCl (B6) 1 each PO QHS #30 tablet 06/20/20 Unknown Rx [Melatonin 3 mg Tablet] Spironolactone [Aldactone] 12.5 mg PO QDAY #30 tablet 06/20/20 Unknown Rx allopurinoL [Zyloprim] 100 mg PO QDAY #30 tablet 06/20/20 Unknown Rx carvediloL [Coreg] 12.5 mg PO BID #60 tablet 06/20/20 Unknown Rx lisinopriL [Zestril TAB] 2.5 mg PO QDAY #30 tablet 06/20/20 Unknown Rx metFORMIN 1,000 mg PO BID #30 06/20/20 Unknown Rx oxyCODONE /ACETAMINOPHEN [Percocet 1 tab PO Q4H PRN #8 tablet 06/20/20 Unknown Rx 5/325 mg] Dicyclomine [Bentyl] 20 mg PO QID PRN #20 tablet 08/01/20 Unknown Rx Ondansetron [Zofran Odt] 4 mg PO Q8HR PRN #20 tab.rapdis 08/01/20 Unknown Rx Allergies Allergy/AdvReac Type Severity Reaction Status Date / Time No Known Allergies Allergy Verified 05/04/19 15:58 ED Review of Systems Constitutional: malaise. denies: fever, weakness Eyes: denies: eye discharge ENT: denies: congestion Respiratory: denies: wheezing Cardiovascular: edema (Chronic lower extremity edema). denies: chest pain, syncope Gastrointestinal: abdominal pain, nausea. denies: hematemesis, melena, hematochezia Genitourinary: denies: urgency, dysuria, testicular pain Musculoskeletal: denies: back pain Neurological: weakness Hematological/Lymphatic: denies: easy bleeding ED Past Medical Hx - Past Medical History Previous Medical History?: Yes Hx Hypertension: Yes Hx Heart Attack/AMI: No Hx Congestive Heart Failure: Yes Hx Diabetes: Yes Hx Deep Vein Thrombosis: No Hx Liver Disease: No Hx Arthritis: Yes (gout) Hx Headaches / Migraines: Yes Hx Seizures: No Hx Asthma: No Hx COPD: No Hx Dementia: No Hx HIV: No Additional medical history: AFib gout back and left leg pain. OBESITY - Surgical History Hx Coronary Stent: No Hx Pacemaker: No Hx Internal Defibrillator: No - Social History Smoking Status: Never Smoker Substance Use Type: Alcohol, Marijuana - Medications Home Medications: Home Medications Medication Instructions Recorded Confirmed Last Taken Type Apixaban [Eliquis] 5 mg PO Q12HR #60 tablet 06/20/20 Unknown Rx AtorvaSTATin 40 mg PO DAILY #30 06/20/20 Unknown Rx Colchicine 1.2 mg PO ONCE #3 capsule 06/20/20 Unknown Rx Furosemide [Lasix TAB] 40 mg PO QDAY #30 06/20/20 07/06/20 Unknown Rx Melatonin/Pyridoxine HCl (B6) 1 each PO QHS #30 tablet 06/20/20 07/06/20 Unknown Rx [Melatonin 3 mg Tablet] Spironolactone [Aldactone] 12.5 mg PO QDAY #30 tablet 06/20/20 07/06/20 Unknown Rx allopurinoL [Zyloprim] 100 mg PO QDAY #30 tablet 06/20/20 07/06/20 Unknown Rx carvediloL [Coreg] 12.5 mg PO BID #60 tablet 06/20/20 07/06/20 Unknown Rx lisinopriL [Zestril TAB] 2.5 mg PO QDAY #30 tablet 06/20/20 07/06/20 Unknown Rx metFORMIN 1,000 mg PO BID #30 06/20/20 07/06/20 Unknown Rx oxyCODONE /ACETAMINOPHEN [Percocet 1 tab PO Q4H PRN #8 tablet 06/20/20 Unknown Rx 5/325 mg] Dicyclomine [Bentyl] 20 mg PO QID PRN #20 tablet 08/01/20 Unknown Rx Ondansetron [Zofran Odt] 4 mg PO Q8HR PRN #20 tab.rapdis 08/01/20 Unknown Rx ED Physical Exam - General Limitations: No Limitations General appearance: alert, anxious, obese - Head Head exam: Present: atraumatic, normocephalic - Eye Eye exam: Present: normal appearance, EOMI. Absent: nystagmus - ENT ENT exam: Present: normal exam, normal orophraynx, mucous membranes moist, normal external ear exam - Neck Neck exam: Present: normal inspection, full ROM. Absent: tenderness, meningismus - Respiratory Respiratory exam: Present: normal lung sounds bilaterally. Absent: respiratory distress, wheezes, rales, rhonchi, stridor, decreased breath sounds - Cardiovascular Cardiovascular Exam: Present: normal rhythm, tachycardia, normal heart sounds. Absent: systolic murmur, diastolic murmur, rubs, gallop - GI/Abdominal GI/Abdominal exam: Present: soft, tenderness, other (There is epigastric tenderness. More tender in the right upper quadrant. Negative Manjarrez sign. There is bilateral lower quadrant tenderness to deep palpation). Absent: distended, guarding, rebound, rigid, pulsatile mass - Rectal Rectal exam: Present: deferred - Extremities Exam Extremities exam: Present: normal inspection, full ROM, pedal edema (2+ edema in the bilateral lower extremities), other (2+ pulses noted in the bilateral upper and lower extremities. There is no palpable cord. negative Homans sign. Muscular compartments are soft. The pelvis is stable.). Absent: calf tenderness - Back Exam Back exam: Present: normal inspection, full ROM. Absent: tenderness, CVA tenderness (R), CVA tenderness (L), paraspinal tenderness, vertebral tenderness - Neurological Exam Neurological exam: Present: alert, oriented X3, normal gait, other (No facial droop. Tongue midline. Extraocular movements intact bilaterally. Facial sensation intact to light touch in V1, V2, V3 distribution bilaterally. 5 and a 5 strength in 4 extremities. Sensation intact to light touch in 4 extremities.). Absent: motor sensory deficit - Psychiatric Psychiatric exam: Present: anxious - Skin Skin exam: Present: warm, dry, intact, normal color. Absent: rash ED Course - Reevaluation(s) Reevaluation #1: 08/01/20 00:56 Differential diagnosis, including but not limited to: GERD, gastritis, hiatal hernia, pneumonia, colitis, obstruction, diverticulitis, pancreatitis, biliary colic, AAA, retroperitoneal hematoma, dependent edema, medication noncompliance Assessment and plan: 59-year-old gentleman who is not hypoxic, with clear lungs, clear chest x-ray, with a primary complaint of abdominal pain, and no active vomiting. There does appear to be a component of mild dependent edema, we will therefore medicate with oral medications. We will obtain CT scan of the abdomen pelvis to exclude surgical process. We will treat the patient's pain, and administer his typical oral medications. A troponin was sent prior to my personal evaluation. As per recent cardiology documentation, no need to repeat ischemic evaluation. EKG is unchanged from prior. No active vomiting with the patient on multiple repeat examinations. We are awaiting CT scan of the abdomen pelvis interpretation, and we are also waiting for nursing team to administer the ordered medications. 08/01/20 01:17 CT scan reviewed and appreciated. Right upper quadrant ultrasound ordered to better delineate biliary anatomy and assess for biliary colic versus cholecystitis. 08/01/20 01:31 Care will be transferred to the oncoming/overnight physician, Dr. Yun, to follow-up on right upper quadrant ultrasound, and arrange for final disposition. Tachycardia improving. ED Medical Decision Making - Lab Data Result diagrams: 07/31/20 15:55 07/31/20 15:55 Vital Signs 07/31/20 07/31/20 15:23 20:15 Temperature 98 F 98.2 F Pulse Rate 106 H 115 H Respiratory 22 18 Rate Blood Pressure 111/83 132/90 O2 Sat by Pulse 98 100 Oximetry Lab Results 07/31/20 07/31/20 07/31/20 Range/Units 15:55 15:55 15:55 WBC 9.0 (4.5-11.0) K/mm3 RBC 5.46 H (3.65-5.03) M/mm3 Hgb 13.8 (11.8-15.2) gm/dl Hct 44.1 (35.5-45.6) % MCV 81 L (84-94) fl MCH 25 L (28-32) pg MCHC 31 L (32-34) % RDW 17.0 H (13.2-15.2) % Plt Count 244 (140-440) K/mm3 Lymph % (Auto) 22.1 (13.4-35.0) % [place] % (Auto) 9.5 H (0.0-7.3) % Eos % (Auto) 0.5 (0.0-4.3) % Baso % (Auto) 0.8 (0.0-1.8) % Lymph # (Auto) 2.0 (1.2-5.4) K/mm3 [place] # (Auto) 0.9 H (0.0-0.8) K/mm3 Eos # (Auto) 0.0 (0.0-0.4) K/mm3 Baso # (Auto) 0.1 (0.0-0.1) K/mm3 Seg Neutrophils % 67.1 (40.0-70.0) % Seg Neutrophils # 6.1 (1.8-7.7) K/mm3 Sodium 136 L (137-145) mmol/L Potassium 3.8 (3.6-5.0) mmol/L Chloride 100.3 (98-107) mmol/L Carbon Dioxide 26 (22-30) mmol/L Anion Gap 14 mmol/L BUN 21 H (9-20) mg/dL Creatinine 1.2 (0.8-1.3) mg/dL Estimated GFR > 60 ml/min BUN/Creatinine Ratio 18 % Glucose 125 H (75-100) mg/dL Calcium 9.6 (8.4-10.2) mg/dL Total Bilirubin 1.90 H (0.1-1.2) mg/dL AST 30 (5-40) units/L ALT 19 (7-56) units/L Alkaline Phosphatase 115 (35-129) units/L Troponin T 0.011 (0.00-0.029) ng/mL NT-Pro-B Natriuret Pep 2223 H (0-900) pg/mL Total Protein 7.9 (6.3-8.2) g/dL Albumin 4.1 (3.9-5) g/dL Albumin/Globulin Ratio 1.1 % Lipase 29 (13-60) units/L Urine Color (Yellow) Urine Turbidity (Clear) Urine pH (5.0-7.0) Ur Specific [place] (1.003-1.030) Urine Protein (Negative) mg/dL Urine Glucose (UA) (Negative) mg/dL Urine Ketones (Negative) mg/dL Urine Blood (Negative) Urine Nitrite (Negative) Urine Bilirubin (Negative) Urine Urobilinogen (<2.0) mg/dL Ur Leukocyte Esterase (Negative) Urine WBC (Auto) (0.0-6.0) /HPF Urine RBC (Auto) (0.0-6.0) /HPF Hyaline Casts /LPF Urine Mucus /HPF 07/31/20 Range/Units Unknown WBC (4.5-11.0) K/mm3 RBC (3.65-5.03) M/mm3 Hgb (11.8-15.2) gm/dl Hct (35.5-45.6) % MCV (84-94) fl MCH (28-32) pg MCHC (32-34) % RDW (13.2-15.2) % Plt Count (140-440) K/mm3 Lymph % (Auto) (13.4-35.0) % [place] % (Auto) (0.0-7.3) % Eos % (Auto) (0.0-4.3) % Baso % (Auto) (0.0-1.8) % Lymph # (Auto) (1.2-5.4) K/mm3 [place] # (Auto) (0.0-0.8) K/mm3 Eos # (Auto) (0.0-0.4) K/mm3 Baso # (Auto) (0.0-0.1) K/mm3 Seg Neutrophils % (40.0-70.0) % Seg Neutrophils # (1.8-7.7) K/mm3 Sodium (137-145) mmol/L Potassium (3.6-5.0) mmol/L Chloride (98-107) mmol/L Carbon Dioxide (22-30) mmol/L Anion Gap mmol/L BUN (9-20) mg/dL Creatinine (0.8-1.3) mg/dL Estimated GFR ml/min BUN/Creatinine Ratio % Glucose (75-100) mg/dL Calcium (8.4-10.2) mg/dL Total Bilirubin (0.1-1.2) mg/dL AST (5-40) units/L ALT (7-56) units/L Alkaline Phosphatase (35-129) units/L Troponin T (0.00-0.029) ng/mL NT-Pro-B Natriuret Pep (0-900) pg/mL Total Protein (6.3-8.2) g/dL Albumin (3.9-5) g/dL Albumin/Globulin Ratio % Lipase (13-60) units/L Urine Color Yellow (Yellow) Urine Turbidity Clear (Clear) Urine pH 5.0 (5.0-7.0) Ur Specific [place] 1.009 (1.003-1.030) Urine Protein <15 mg/dl (Negative) mg/dL Urine Glucose (UA) Neg (Negative) mg/dL Urine Ketones Neg (Negative) mg/dL Urine Blood Neg (Negative) Urine Nitrite Neg (Negative) Urine Bilirubin Neg (Negative) Urine Urobilinogen < 2.0 (<2.0) mg/dL Ur Leukocyte Esterase Neg (Negative) Urine WBC (Auto) 7.0 H (0.0-6.0) /HPF Urine RBC (Auto) 1.0 (0.0-6.0) /HPF Hyaline Casts 5 /LPF Urine Mucus Few /HPF - EKG Data 08/01/20 00:56 Sinus rhythm, tachycardia, 106 bpm. Left axis deviation, poor R wave pr ogression, Q waves in V2, minimal motion artifact, and T wave abnormalities. This EKG is abnormal. This EKG is not a STEMI. Appears grossly unchanged when compared to prior EKG from June 2020 - Radiology Data Radiology results: pending, report reviewed, image reviewed CHEST 2 VIEWS INDICATION: shortness of breath. COMPARISON: 07/06/2020 FINDINGS: Support devices: None. Heart: Stable mild cardiomegaly Lungs/pleura: No acute air space or interstitial disease. No pneumothorax. Additional findings: None. IMPRESSION: Cardiomegaly. Lungs clear. Signer Name: Regan Pleitez Jr, MD Signed: 07/31/2020 2:54 PM Workstation Name: [id number] CT abdomen pelvis w con INDICATION: Pt complains of acute abd pain with vomiting and S.O.B.. COMPARISON: Ultrasound abdomen 12/05/2018 TECHNIQUE: Abdominal and pelvic CT exam performed. All CT scans at this location are performed using CT dose reduction for ALARA by means of automated exposure control. FINDINGS: CT ABDOMEN and PELVIS: Lung Bases: No significant abnormality. Liver: No significant abnormality. Biliary: There is mild gallbladder wall thickening without stones visualized. There is stranding along the [place] hepatis. Spleen: No significant abnormality. Pancreas: No significant abnormality. Adrenals: No significant abnormality. Kidneys: Small hypoattenuating right midpole lesion most likely represents a renal cyst. Lymphatics: No lymphadenopathy. Vasculature: No significant abnormality. Bowel: No significant abnormality. Pelvis: There is fluid seen layering within the pelvis. Osseous Structures: No aggressive osseous lesion. Small gas-containing extrusion at L5-S1 contained to the ventral epidural fat. Additional Findings: None IMPRESSION: 1. Nonspecific gallbladder wall thickening with inflammation seen in the [place] hepatis. No gallstones are visualized. Recommend right upper quadrant ultrasound to evaluate for acute cholecystitis. There is also fluid seen layering in the pelvis which could be secondary to cholecystitis if present on ultrasound. Signer Name: Omar Weinstein MD Signed: 08/01/2020 12:09 AM Workstation Name: [id number] ED Disposition Clinical Impression: Abdominal pain Disposition: DC-01 TO HOME OR SELFCARE Condition: Stable Instructions: Abdominal Pain, Adult, [id number] Referrals: PRIMARY CARE, [Primary Care Provider] - 3-5 Days <PETRA YUN - Last Filed: 08/01/20 03:34> ED Review of Systems ROS: Stated complaint: SOB/ABD PAIN/FATIGUE/VOMITING/OUT OF MEDS Other details as noted in HPI ED Course Vital Signs 07/31/20 07/31/20 08/01/20 15:23 20:15 01:16 Temperature 98 F 98.2 F Pulse Rate 106 H 115 H 107 H Respiratory 22 18 20 Rate Blood Pressure 111/83 132/90 Blood Pressure 101/85 [Left] O2 Sat by Pulse 98 100 94 Oximetry 08/01/20 08/01/20 08/01/20 02:36 02:45 03:00 Temperature Pulse Rate Respiratory Rate Blood Pressure 110/76 105/81 Blood Pressure [Left] O2 Sat by Pulse 90 87 100 Oximetry 08/01/20 08/01/20 03:15 03:29 Temperature Pulse Rate 93 H Respiratory 20 Rate Blood Pressure 105/81 Blood Pressure 105/81 [Left] O2 Sat by Pulse 99 100 Oximetry - Reevaluation(s) Reevaluation #1: 08/01/20 03:33 Ultrasound negative for any acute findings. Tachycardia has resolved. Will discharge home at this time. ED Medical Decision Making - Lab Data Result diagrams: 07/31/20 15:55 07/31/20 15:55 Critical care attestation.: If time is entered above; I have spent that time in minutes in the direct care of this critically ill patient, excluding procedure time. ED Disposition Is pt being admited?: No Time of Disposition: 03:34
--- NOTE | 2020-08-01 01:13 | Cat Scan Report ---
CT abdomen pelvis w con INDICATION: Pt complains of acute abd pain with vomiting and S.O.B.. COMPARISON: Ultrasound abdomen 12/05/2018 TECHNIQUE: Abdominal and pelvic CT exam performed. All CT scans at this location are performed using CT dose reduction for ALARA by means of automated exposure control. FINDINGS: CT ABDOMEN and PELVIS: Lung Bases: No significant abnormality. Liver: No significant abnormality. Biliary: There is mild gallbladder wall thickening without stones visualized. There is stranding julee g the [place] hepatis. Spleen: No significant abnormality. Pancreas: No significant abnormality. Adrenals: No significant abnormality. Kidneys: Small hypoattenuating right midpole lesion most likely represents a renal cyst. Lymphatics: No lymphadenopathy. Vasculature: No significant abnormality. Bowel: No significant abnormality. Pelvis: There is fluid seen layering within the pelvis. Osseous Structures: No aggressive osseous lesion. Small gas-containing extrusion at L5-S1 contained t o the ventral epidural fat. Additional Findings: None IMPRESSION: 1. Nonspecific gallbladder wall thickening with inflammation seen in the [place] hepatis. No gallstones are visualized. Recommend right upper quadrant ultrasound to evaluate for acute cholecystitis. There is also fluid seen layering in the pelvis which could be secondary to cholecystitis if present on ul trasound. Signer Name: Omar Wenistein MD Signed: 08/01/2020 1:09 AM Workstation Name: [id number]
--- NOTE | 2020-08-01 03:18 | Ultrasound Report ---
US abdomen limited INDICATION: abd pain COMPARISON: None. FINDINGS: Pancreas: Normal. Abdominal aorta: Normal. IVC: Normal. Liver: Normal. Gallbladder: No gallstones. No gallbladder wall thickening. Nonspecific small cystic area in the gall bladder fossa likely represents a small simple hepatic cyst. Bile ducts: Normal. The common bile duct measures 3 mm. Kidneys: Normal. Spleen: Normal. There is no free fluid in the abdomen. IMPRESSION: No evidence of acute cholecystitis. Signer Name: Omar Weinstein MD Signed: 08/01/2020 3:13 AM Workstation Name: [id number]
[2020-08-01 03:28] VITALS: BP 105/81
== END 2020-08-01 05:50 | disposition home or self-care (01) ==
LOC: ED 15:04
DX: R10.9 Unspecified abdominal pain (principal); E11.9 Type 2 diabetes mellitus without complications; I10 Essential (primary) hypertension; M10.9 Gout, unspecified; E66.9 Obesity, unspecified; G43.909 Migraine, unspecified, not intractable, without status migrainosus; I48.91 Unspecified atrial fibrillation; F12.90 Cannabis use, unspecified, uncomplicated; Z68.41 Body mass index [BMI] 40.0-44.9, adult; Z79.899 Other long term (current) drug therapy
CPT/HCPCS: 36415; 71046; 74177; 76705; 80053; 81001; 83690; 83880; 84484; 85025; 93005; 96374; 96375; 99285; J2270; J2405; Q9967